=== PATIENT | male | born 1955 | race Asian ===

== ENCOUNTER → 2017-11-23 07:43 | Outpatient (CLI) | payer OTHER, SELFPAY | PROVIDERS: PCP Family Medicine; Visit Provider Urology | DX: R30.0 Dysuria (principal) | CPT/HCPCS: 87086 ==

== ENCOUNTER 2019-01-17 09:09 | Outpatient (REF) | payer OTHER, SELFPAY ==
[2019-01-17 13:39] LABS: Anion Gap 7.2 mmol/L (3-11); BUN 13 mg/dL (7-18); CO2 27.8 mmol/L (21.0-32.0); Calcium 8.8 mg/dL (8.5-10.1); Calculated LDL 100 mg/dL; Chloride 107 mmol/L (98-107); Cholesterol 156 mg/dL (50-200); Glucose 111 mg/dL (70-100); HDL Cholesterol 44 mg/dL (40-60); Hemoglobin A1C 5.8 % (4.5-6.2); Potassium 4.7 mmol/L (3.5-5.1); Sodium 142 mmol/L (136-145); Triglyceride 61 mg/dL (30-150)
== END 2019-01-17 09:29 ==
LOC: NCHCN 09:09
PROVIDERS: PCP Family Medicine; Visit Provider Family Medicine
DX: I10 Essential (primary) hypertension (principal); R73.03 Prediabetes
CPT/HCPCS: 80048; 80061; 83036

== ENCOUNTER 2019-08-19 09:00 | Outpatient (REF) | payer OTHER, SELFPAY ==
[2019-08-19 15:45] LABS: BUN 21 mg/dL (7-18); CREATININE 0.93 mg/dL (0.70-1.30); Calcium 8.7 mg/dL (8.5-10.1); Chloride 106 mmol/L (98-107); Glucose 105 mg/dL (74-106); Potassium 3.9 mmol/L (3.5-5.1); Sodium 140 mmol/L (136-145)
[2019-08-19 15:58] LABS: Hemoglobin A1C 5.7 % (3.8-5.6)
[2019-08-20 09:52] LABS: PSA, Diagnostic <0.1 ng/mL (0.0-4.5)
== END 2019-08-19 09:20 ==
LOC: NCHCN 09:00
PROVIDERS: PCP Family Medicine; Visit Provider Family Medicine
DX: I10 Essential (primary) hypertension (principal); R73.03 Prediabetes; Z85.46 Personal history of malignant neoplasm of prostate
CPT/HCPCS: 80048; 83036; 84153

== ENCOUNTER 2019-10-16 00:08 | Outpatient (CLI) | payer OTHER, SELFPAY ==
--- NOTE | 2019-10-16 08:00 | ETT_ITS ---
APPROVED REPORT Exam: Exercise Treadmill Patient Location: Out-Patient Room/Bed: Stress Nurse: Tami Delgado RN BMI: 29.53 Baseline Rhythm: Sinus Rhythm, Sinus Bradycardia Indications: Dyspnea on exertion. Medical History Medical History: HTN Cardiac Medications: Lisinopril. Chlorthalidone., Allergies: No known drug allergies Cardiac Risk Factors: HTN. Former smoker. Exercise History: Physically active Lung Sounds: Clear to auscultation Heart Sounds: Regular Stress Test Details Test: Exercise stress testing was performed using a Nathaniel protocol. Rest Stress HR Resting HR Supine: 59 bpm Max Heart Rate (APMHR): 155 bpm Target HR (85% APMHR): 131 bpm Max HR Achieved: 118 bpm % of APMHR: 76 Recovery HR: 77 bpm HR response to stress: Normal HR response to stress BP Resting BP Supine: 128/86 mmHg Max BP: 160/68 mmHg Recovery BP: 132/74 mmHg BP response to stress: Normal blood pressure response to stress. ECG Resting ECG: Sinus Bradycardia Ectopy: none Stress ECG: Sinus Tachycardia ST Change: No significant ST segment changes Arrhythmia: APC's Recovery ECG: Sinus Rhythm Recovery ST Change: No significant ST segment changes. Recovery Arrhythmia: VPC Clinical Reason for Termination: Fatigue Stress Symptoms: General Fatigue Exercise duration: 10 min30 sec Highest Stage Reached: Stage 4: 4.2 mph at 16% grade. Exercise capacity: 12.61 METs Functional Capacity: Above average capacity Angina Score: Non-Limiting Stress ECG Conclusion 1. The patient exercised for 10 minutes and 30 seconds (13 METS). 2. Exercise was stopped due to fatigue. The patient no symptom suggestive of ischemia. 3. There is no evidence of ischemia on the ECG portion of the exam. 4. The Guy Score ( 11) estimates an annual cardiovascular mortality of 0% and a five year survival o f 96%. Using the Guy Score there is a low probability of any angiographic coronary disease. Stress Test Summary STAGE Time (mins) Speed (mph) Grade (%) HR BP SYMPTOMS METS Supine 59 128/86 1 3 1.7 10 90 130/80 4.6 2 6 2.5 12 102 142/74 7 3 9 3.4 14 119 156/70 10.2 1 min recovery 118 160/68 3 min recovery 86 162/70 6 min recovery 77 132/74
== END 2019-10-16 00:28 ==
PROVIDERS: PCP Family Medicine; Visit Provider Family Medicine
DX: R06.09 Other forms of dyspnea (principal); I10 Essential (primary) hypertension
CPT/HCPCS: 93017

== ENCOUNTER 2020-02-26 03:16 | Outpatient (CLI) | payer OTHER, SELFPAY ==
[2020-02-27 11:39] LABS: PSA, Ultrasensitive 0.04 ng/mL (<= 4.5)
== END 2020-02-26 03:36 ==
PROVIDERS: PCP Family Medicine; Visit Provider Urology
DX: C61 Malignant neoplasm of prostate (principal)
CPT/HCPCS: 36415; 84153

== ENCOUNTER 2020-03-24 15:45 | Outpatient (REF) | payer OTHER, SELFPAY ==
[2020-03-24 20:11] LABS: Anion Gap 8.5 mmol/L (3-11); BUN 26 mg/dL (7-18); CO2 27.5 mmol/L (21.0-32.0); Calcium 9.3 mg/dL (8.5-10.1); Chloride 101 mmol/L (98-107); Glucose 113 mg/dL (74-106); Sodium 137 mmol/L (136-145)
== END 2020-03-24 16:05 ==
LOC: NCHCN 15:45
PROVIDERS: PCP Family Medicine; Visit Provider Family Medicine
DX: I10 Essential (primary) hypertension (principal)
CPT/HCPCS: 80048

== ENCOUNTER 2020-07-21 11:12 | Outpatient (CLI) | payer OTHER, MEDICARE, SELFPAY ==
[2020-07-22 14:49] LABS: PSA, Ultrasensitive 0.06 ng/mL (<= 4.5)
== END 2020-07-21 11:13 | disposition home or self-care (01) ==
PROVIDERS: PCP Family Medicine; Visit Provider Radiology Radiation Oncology
DX: C61 Malignant neoplasm of prostate (principal)
CPT/HCPCS: 36415; 84153

== ENCOUNTER 2020-08-27 02:28 | Outpatient (CLI) | payer OTHER, MEDICARE, SELFPAY ==
[2020-08-30 10:34] LABS: PSA, Ultrasensitive 0.06 ng/mL (<= 4.5)
== END 2020-08-27 02:29 | disposition home or self-care (01) ==
LOC: LBO 02:28
PROVIDERS: Radiology Radiation Oncology; PCP Family Medicine; Visit Provider Nurse Practitioner
DX: C61 Malignant neoplasm of prostate (principal)
CPT/HCPCS: 36415; 84153

== ENCOUNTER 2020-10-14 03:31 | Outpatient (CLI) | payer OTHER, MEDICARE, SELFPAY ==
[2020-10-15 13:06] LABS: PSA, Ultrasensitive 0.06 ng/mL (<= 4.5)
== END 2020-10-14 03:32 | disposition home or self-care (01) ==
LOC: LBO 03:31
PROVIDERS: PCP Family Medicine; Visit Provider Radiology Radiation Oncology
DX: C61 Malignant neoplasm of prostate (principal)
CPT/HCPCS: 36415; 84153

== ENCOUNTER 2020-12-07 01:45 | Outpatient (CLI) | payer OTHER, MEDICARE, SELFPAY ==
[2020-12-09 11:06] LABS: PSA, Ultrasensitive 0.06 ng/mL (<= 4.5)
== END 2020-12-07 01:46 | disposition home or self-care (01) ==
LOC: LBO 01:47
PROVIDERS: PCP Family Medicine; Visit Provider Radiology Radiation Oncology
DX: C61 Malignant neoplasm of prostate (principal)
CPT/HCPCS: 36415; 84153

== ENCOUNTER 2021-03-02 02:16 | Outpatient (CLI) | payer OTHER, SELFPAY ==
[2021-03-03 13:03] LABS: PSA, Ultrasensitive 0.07 ng/mL (<= 4.5)
== END 2021-03-02 02:17 | disposition home or self-care (01) ==
PROVIDERS: PCP Family Medicine; Visit Provider Radiology Radiation Oncology
DX: C61 Malignant neoplasm of prostate (principal)
CPT/HCPCS: 36415; 84153

== ENCOUNTER 2021-03-02 07:22 | Outpatient (REF) | payer OTHER, SELFPAY ==
[2021-03-02 14:15] LABS: HCT 43.1 % (40.0-50.0); HGB 14.6 g/dL (13.5-17.5); MCH 32.4 pg (27.0-33.0); MCHC 33.9 % (32.0-36.0); MCV 95.6 fL (80-95); MPV 8.8 fL (8.0-11.0); Platelet Count 231 10^3/uL (130-400); RBC 4.51 10^6/uL (4.36-5.78); RDW 12.1 % (11.8-14.1); RDW-SD 42.3 fL; WBC 4.12 10^3/uL (4.4-10.8)
[2021-03-02 14:28] LABS: ALT 39 U/L (16-63); AST 27 U/L (15-37); Albumin 4.1 g/dL (3.4-5.0); Alkaline Phosphatase 55 U/L (46-116); Anion Gap 8.3 mmol/L (3-11); BUN 22 mg/dL (7-18); Bilirubin, Total 0.6 mg/dL (0.2-1.0); CO2 28.7 mmol/L (21.0-32.0); CREATININE 1.1 mg/dL (0.70-1.30); Calcium 8.9 mg/dL (8.5-10.1); Chloride 104 mmol/L (98-107); Glucose 112 mg/dL (74-106); Potassium 4.2 mmol/L (3.5-5.1); Sodium 141 mmol/L (136-145); Total Protein 7.6 g/dL (6.4-8.2)
[2021-03-03 21:47] LABS: Hemoglobin A1C 5.9 % (<5.7)
== END 2021-03-02 07:23 | disposition home or self-care (01) ==
LOC: NCHCN 07:22
PROVIDERS: PCP Family Medicine; Visit Provider Family Medicine
DX: I10 Essential (primary) hypertension (principal); R73.03 Prediabetes
CPT/HCPCS: 80053; 85027; 83036

== ENCOUNTER 2021-03-28 17:35 | Outpatient (REF) | payer OTHER, SELFPAY ==
[2021-03-28 19:02] LABS: Calculated LDL 117 mg/dL (<100); Cholesterol 178 mg/dL (<200); HDL Cholesterol 41 mg/dL (40-60); Triglyceride 104 mg/dL (<150)
[2021-03-30 11:48] LABS: Hepatitis C Ab w Rflx HCV PCR Negative (Negative)
== END 2021-03-28 17:36 | disposition home or self-care (01) ==
LOC: NCHCN 17:35
PROVIDERS: PCP Family Medicine; Visit Provider Family Medicine
DX: E78.5 Hyperlipidemia, unspecified (principal); Z11.59 Encounter for screening for other viral diseases
CPT/HCPCS: 80061; 86803

== ENCOUNTER 2021-04-28 02:55 | Outpatient (CLI) | payer OTHER, SELFPAY ==
[2021-05-02 13:16] LABS: PSA, Ultrasensitive 0.08 ng/mL (<= 4.5)
== END 2021-04-28 02:56 | disposition home or self-care (01) ==
LOC: LBO 02:56
PROVIDERS: PCP Family Medicine; Visit Provider Radiology Radiation Oncology
DX: C61 Malignant neoplasm of prostate (principal)
CPT/HCPCS: 36415; 84153

== ENCOUNTER 2021-07-21 02:00 | Outpatient (CLI) | payer OTHER, SELFPAY ==
--- NOTE | 2021-07-21 13:00 | DI.DEXA_ITS ---
Exam(s) XR DEXA BONE DENSITY W/WO CHAZ EXAM: XR DEXA BONE DENSITY W/WO CHAZ CLINICAL HISTORY: PROSTATE CA, C61, ON ADT, RISK OF OSTEOPOROSIS AND FX, ? OSTEOPENIA TECHNIQUE: COMPARISON: No exams were available for comparison FINDINGS: DEXA scan was performed according to usual protocol. Please see the accompanying data sheets. Findi ngs for left hip scanning are T-score 0.6 with left femoral neck T-score -0.3. Lumbar spine scanning shows T-score 1.2. Left forearm scanning shows T-score 0.2. IMPRESSION: The findings are consistent with normal bone density according to the WHO criteria. Lateral vertebr al scanogram shows no evidence of a vertebral compression fracture. RADIATION DOSE DELIVERED: Total DLP
== END 2021-07-21 02:20 ==
PROVIDERS: PCP Family Medicine; Visit Provider Radiology Radiation Oncology
DX: C61 Malignant neoplasm of prostate (principal); Z79.899 Other long term (current) drug therapy; Z13.820 Encounter for screening for osteoporosis
CPT/HCPCS: 77080

== ENCOUNTER 2021-09-29 04:12 | Outpatient (CLI) | payer OTHER, SELFPAY ==
[2021-09-30 15:15] LABS: PSA, Ultrasensitive <0.01 ng/mL (<= 4.5)
== END 2021-09-29 04:13 | disposition home or self-care (01) ==
LOC: LBO 04:12
PROVIDERS: PCP Family Medicine; Visit Provider Radiology Radiation Oncology
DX: C61 Malignant neoplasm of prostate (principal)
CPT/HCPCS: 36415; 84153; 84403

== ENCOUNTER 2021-12-30 01:27 | Outpatient (CLI) | payer OTHER, SELFPAY ==
--- OUTSIDE RECORDS SUMMARY | 2021-12-30 01:31 | XMS_ITS | Encounter Summary ---
:1955 Author Organization [facility] [place] [address] Care Team Providers Name Role Phone Clara Wood MD Primary Care Provider Encounter Details Date Type Department Care Team Description 07/07/2020 Telephone Urology at [facility] Nabil Camargo MD [facility] ([facility]) [place] [address] UROLOGY [phone] [place] [address] (Wo rk) Social History Tobacco Use Types Packs/Day Years Used Date Former Smoker Cigarettes 1.5 20 Quit: 1981 Smokeless Tobacco: Never Used Alcohol Use Standard Drinks/Week Comments Yes 0 (1 standard drink = 0.6 oz pure alcoho l) rarely Alcohol Habits Answer Date Recorded How often do you have a drink containing alcohol? Not asked How many drinks containing alcohol do you have on a typical Not asked day when you are drinking? How often do you have six or more drinks on one occasion? No t asked Comment: rarely 10/18/2017 Sex Assigned at Date Recorded Not on file documented as of this encounter Miscellaneous Notes Telephone Encounter - Nabil Camargo MD - 07/07/2020 11:12 AM EDT I called Amanuel back to discuss some questions he had regarding his possible salvage radiation treatment specifically if and when to pull the trigger based on his PSA trends. I explained that he is eriberto tough situation as is often times very difficult to distinguish between benign PSA rise following surgery and recurrent disease given the low PSA values were looking at. I explained that it would be completely reasonable to continue trending the PSA as the value is still quite low and there is good evidence that as long as radiation is administered in a relatively timely fashion the long-term cancer specific outcomes are essentially equivalent versus early and delayed salvage radiation but that would also be completely reasonable to proceed with salvage treatment considering the PSA rise. I explained that the decision is quite difficult as there is no other test we have that is availableto distinguish between recurrent disease and a benign PSA rise in the situation. I believe he is leaning towards salvage radiation which I think is reasonable but he would like to check another PSA prior to his treatment. I will let Dr. Pringle know to see if they can have this done when he sees him towards the end of the month. documented in this encounter Plan of Treatment Upcoming Encounters Date Type Specialty Care Team Description 01/19/2022 Office Visit Radiation Oncology Clover Covarrubias APRN [facility] RADIATION ONCOLO [place], [place] [address] (Wo rk) 12/04/2022 Hospital Encounter Gastroenterology Real Jones MD [facility] GASTROENTEROLOGY DEPT. [place], [place] [address] (Wo rk) Scheduled Procedures Name Priority Associated Diagnoses Date/Time COLONOSCOPY, DIAGNOSTIC 10 yr f/up documented as of this encounter Visit Diagnoses Not on filedocumented in this encounter Care Teams Square Dance Caller Relationship Specialty Start Date End Date Clara Wood MD PCP - General Family Medicine 01/26/17 Ebony [address]EN [address] [place] [address] documented as of this encounter
--- OUTSIDE RECORDS SUMMARY | 2021-12-30 01:31 | XMS_ITS | Encounter Summary ---
:1955 Author Organization [facility] [place] [address] Care Team Providers Name Role Phone Clara Wood MD Primary Care Provider Encounter Details Date Type Department Care Team Description 07/21/2020 Office Visit Radiation Oncology at [facility] Michel MD Prostate cancer [address] [place] [id number] [phone] (Wo rk) Social History Tobacco Use Types [...] on file documented as of this encounter Last Filed Vital Signs Vital Sign Reading Time Taken Comments Blood Pressure 118/83 07/21/2020 10:00 AM EDT Pulse 60 07/21/2020 10:00 AM EDT Temperature 36.7 ??C (98 ??F) 07/21/2020 10:00 AM EDT Respiratory Rate 16 07/21/2020 10:00 AM EDT Oxygen Saturation 99% 07/21/2020 10:00 AM EDT Inhaled Oxygen Concentration - - Weight 92.4 kg (203 lb 9.6 oz) 07/21/2020 10:00 AM EDT Height - - Body Mass Index 30.07 04/23/2018 7:39 AM EST documented in this encounter Progress Notes Michel Yip MD - 07/21/2020 11:00 AM EDT I met with Victoriano and his Nata today in clinic to review options regarding salvage therapy and timing. He has an excellent understanding of the medical decision making at this time. We reviewed reasons for RT - primarily the positive surgical margins and detectable PSA. We also reviewed reasons which make surveillance in the near term reasonable - namely the overall low PSA (0.05 in 05/2020) and presence of only Sarah 3 disease at a small, focal margin. At this time, he would prefer to recheck PSA prior to starting RT. This is very reasonable to me, and we will arrange for PSA to be drawn locally, later today. I will call him with results and finalize a plan moving forward. I anticipate at least 1-2 additional PSA checks at q6w intervals to assess PSA trajectory before finalizing any treatment decisions. Time Attestation: I certify spending at least 30 minutes in providing care to this patient today, 07/21/20 as reflected by the following activities: - review of his medical record in the chart, including interpretation of imaging, laboratory and pathologic studies referenced above - discussion of the above with the patient as part of shared medical decision making - documenting the outcome of today's visit as above documented in this encounter Plan of Treatment Upcoming Encounters Date Type Specialty Care Team Description 01/19/2022 Office Visit Radiation Oncology Clover Covarrubias APRN [facility] RADIATION ONCOLO [place], [place] [address] (Kalpesh richter) 12/04/2022 Hospital Encounter Gastroenterology Real Jones MD [facility] GASTROENTEROLOGY DEPT. [place], [place] [address] (Wo rk) Scheduled Procedures Name Priority Associated Diagnoses Date/Time COLONOSCOPY, DIAGNOSTIC 10 yr f/up documented as of this encounter Visit Diagnoses Diagnosis Prostate cancer Malignant neoplasm of prostate documented in this encounter Care Teams Print Shop Manager Relationship Specialty Start Date End Date Clara Wood MD PCP - General Family Medicine 01/26/17 Ebony [address]EN [address] [place] [address] documented as of this encounter
--- OUTSIDE RECORDS SUMMARY | 2021-12-30 01:31 | XMS_ITS | Encounter Summary ---
:1955 Author Organization [facility] [place] [address] Care Team Providers Name Role Phone Clara Wood MD Primary Care Provider Encounter Details Date Type Department Care Team Description 07/21/2021 Office Visit Radiation Oncology at [facility] Michel MD Prostate cancer [address] [place] [id number] (Wo rk) Social History Tobacco Use Types [...] Sign Reading Time Taken Comments Blood Pressure 125/79 07/21/2021 8:00 AM EDT Pulse 74 07/21/2021 8:00 AM EDT Temperature 36.7 ??C (98.1 ??F) 07/21/2021 8:00 AM EDT Respiratory Rate 16 07/21/2021 8:00 AM EDT Oxygen Saturation 98% 07/21/2021 8:00 AM EDT Inhaled Oxygen Concentration - - Weight 90.4 kg (199 lb 6.4 oz) 07/21/2021 8:00 AM EDT Height - - Body Mass Index 29.45 04/23/2018 7:39 AM EST documented in this encounter Progress Notes Michel Yip MD - 07/21/2021 8:10 AM EDT Images from the original note were not included. RADIATION ONCOLOGY - Weekly On Treatment Visit Note 07/21/21 MICHEL YIP MD Radiation Oncology [facility] [phone] (paging surfacer operator) Pager #[phone] PATIENT IDENTIFICATION Name Amanuel Lomax Date of 1955 PCP Clara Wood MD Referring MD (if different) Dr. 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 Had COVID and shingles booster this week, sopretty tired. GI Diarrhea well controlled w Imodium. Nocturia stable at 2x/nt. Uses 1 pad daily. Occ stress UI. No dysuria. Baseline IPSS history is listed below. Pain: Pain score today is 0/10. Prostate Today's Scores 12/10/2018 07/02/2020 08/26/2020 10/21/2020 05/04/2021 Sexual Health Inventory for Men 3 (Severe ED) 1 (Severe ED) 7 (Severe ED) 1 (Severe ED) 2 (Severe ED) International Prostate Symptom Score 2 ( Mild LUTS) 2 ( Mild LUTS) 2 ( Mild LUTS) 2 ( Mild LUTS) 2 (Mild LUTS) MEDICATIONS Medications 07/21/21 0832 Medication Sig Taking? loperamide (Imodium A-D) 2 mg Capsule Take 2 mg by mouth 4 times daily as needed for Diarrhea. Yes calcium-vitamin D3 600 mg-10 mcg (400 unit) Capsule Take 1 tablet by mouth 2 times daily. Yes lactobacillus rhamnosus, GG, (CULTURELLE) 10 billion cell Capsule Take 1 capsule by mouth daily. Yes chlorthalidone (Hygroten) 25 mg Tablet 25 mg daily. Yes lisinopriL (Prinivil;Zestril) 40 mg Tablet Take 40 mg by mouth daily. Yes acetaminophen (TYLENOL) 325 mg Tablet Take 650 mg by mouth every 4 hours as needed for Pain. Yes IMAGING / LABS I have personally reviewed this patient's interval portal imaging to confirm accurate positioning and alignment which matches the patient's original approved treatment planning images. 07/08/21 PSA 0.01 (<-- 0.08 in Apr 2021) EXAM: BP 125/79 Pulse 74 Temp 36.7 ??C (98.1 ??F) Resp 16 Wt 90.4 kg (199 lb 6.4 oz) SpO2 98% BMI 29.45 kg/m?? Constitutional: he appears well-developed and well-nourished. No distress. Performance Status: KPS Score ECOG Grade Definition XX 90-100 0 Fully active, able to carry on all pre-disease performance without restriction 70-80 1 Restricted in physically strenuous activity but ambulatory and able to carry out work of a light or sedentary nature, e.g., light house work, office work 50-60 2 Ambulatory and capable of all selfcare but unable to carry out any work activities; up and about more than 50% of waking hours 30-40 3 Capable of only limited selfcare; confined to bed or chair more than 50% of waking hours 10-20 4 Completely disabled; cannot carry on any selfcare; totally confined to bed or chair IMPRESSION/PLAN Tolerance to radiotherapy/ADT: Tolerating as anticipated. Continue as planned. Next Lupron 08/05 Followup: Return to clinic next week for on treatment check. documented in this encounter Plan of Treatment Upcoming Encounters Date Type Specialty Care Team Description 01/19/2022 Office Visit Radiation Oncology Clover Covarrubias APRN [facility] RADIATION ONCOLO [place], [place] [address] (Wo rk) 12/04/2022 Hospital Encounter Gastroenterology Real Jones MD [facility] GASTROENTEROLOGY DEPT. [place], [place] [address] (Wo rk) Scheduled Procedures Name Priority Associated Diagnoses Date/Time COLONOSCOPY, DIAGNOSTIC 10 yr f/up documented as of this encounter Visit Diagnoses Diagnosis Prostate cancer Malignant neoplasm of prostate documented in this encounter Care Teams Screen Printing Equipment Setter Relationship Specialty Start Date End Date Clara oWod MD PCP - General Family Medicine 01/26/17 [address] [place] [address] documented as of this encounter
--- OUTSIDE RECORDS SUMMARY | 2021-12-30 01:31 | XMS_ITS | Encounter Summary ---
:1955 Author Organization [facility] [place] [address] Care Team Providers Name Role Phone Clara Wood MD Primary Care Provider Encounter Details Date Type Department Care Team Description 10/06/2021 Office Visit Radiation Oncology at [facility] Michel MD Prostate cancer [address] [place] [phone] (Wo rk) Social History Tobacco Use Types [...] Sign Reading Time Taken Comments Blood Pressure 124/78 10/06/2021 2:00 PM EDT Pulse 64 10/06/2021 2:00 PM EDT Temperature 36.6 ??C (97.9 ??F) 10/06/2021 2:00 PM EDT Respiratory Rate 16 10/06/2021 2:00 PM EDT Oxygen Saturation 98% 10/06/2021 2:00 PM EDT Inhaled Oxygen Concentration - - Weight 90 kg (198 lb 6.4 oz) 10/06/2021 2:00 PM EDT Height - - Body Mass Index 29.3 04/23/2018 7:39 AM EST documented in this encounter Progress Notes Michel Yip MD - 10/06/2021 2:00 PM EDT Images from the original note were not included. RADIATION ONCOLOGY - End of Treatment Visit Note 10/06/21 MICHEL YIP MD Radiation Oncology [facility] [phone] (paging regrind mill operator) Pager #[phone] PATIENT IDENTIFICATION Name Amanuel Lomax Date of 1955 PCP Clara Wood MD Referring MD (if different) Dr. Camargo Diagnosis High-Risk Prostate Cancer s/p RALP 11/2017 (pT3a, Gl 3+4, preop PSA 12, +focal SM Gl 3) Rising PSA postop most recently 0.08 (04/2021) NEOADJUVANT / CONCURRENT THERAPY: ST-ADT (planned 6 months) ONCBCN ONCOLOGY (AMB) 06/08/2021 07/14/2021 08/12/2021 09/08/2021 leuprolide (Lupron Depot) IM 7.5 mg 7.5 mg 7.5 mg 7.5 mg INTENT OF THERAPY: Definitive (Curative) RADIATION TREATMENT DETAILS: Initial Treatment Site Pelvis and Prostate Bed Prescribed Dose 45 Gy in 25 fractions Boost Treatment Site 2 Prostate Bed Prescribed Dose 70.2 Gy in 39 fractions Completion Date 08/19/21 INTERVAL HISTORY General 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 Overall no changes. Mild HF. GI Diarrhea resolved. Eating full diet. Nocturia stable at 2x/nt. Uses 1 pad daily. Occ stress UI. No dysuria. IPSS history below. Pain: Pain score today is 0/10. Prostate Today's Scores 07/02/2020 08/26/2020 10/21/2020 05/04/2021 10/06/2021 Sexual Health Inventory for Men 1 (Severe ED) 7 (Severe ED) 1 (Severe ED) 2 (Severe ED) - International Prostate Symptom Score 2 ( Mild LUTS) 2 ( Mild LUTS) 2 ( Mild LUTS) 2 ( Mild LUTS) 2 (Mild LUTS) MEDICATIONS Medications 08/18/21 0808 Medication Sig Taking? loperamide (Imodium A-D) 2 mg Capsule Take 2 mg by mouth 4 times daily as needed for Diarrhea. calcium-vitamin D3 600 mg-10 mcg (400 unit) Capsule Take 1 tablet by mouth 2 times daily. lactobacillus rhamnosus, GG, (CULTURELLE) 10 billion cell Capsule Take 1 capsule by mouth daily. chlorthalidone (Hygroten) 25 mg Tablet 25 mg daily. lisinopriL (Prinivil;Zestril) 40 mg Tablet Take 40 mg by mouth daily. acetaminophen (TYLENOL) 325 mg Tablet Take 650 mg by mouth every 4 hours as needed for Pain. IMAGING / LABS PSA 05/2020 ?- 0.05 ng/dl 06/2020 ?- 0.06 08/27/2020 ?- 0.06 10/14/2020 ??- 0.06 03/02/2021 - ??0.07 04/28/2021 - 0.08 07/08/21 - 0.01 08/19/21 - <<<COMPLETE RT>> 09/29/21 - <0.01 Testosterone 09/29/21 8.0 ng/dl (LLN 240) EXAM: BP 124/78 Pulse 64 Temp 36.6 ??C (97.9 ??F) Resp 16 Wt 90 kg (198 lb 6.4 oz) SpO2 98% BMI 29.30 kg/m?? Constitutional: he appears well-developed and well-nourished. [...] totally confined to bed or chair IMPRESSION/PLAN Response to radiotherapy/ADT: Complete biochemical response, testosterone at castrate level Lupron due today Followup: Return to clinic 4 weeks for final Lupron RV 3 months after that with PSA / T prior documented in this encounter Plan of Treatment Upcoming Encounters Date Type Specialty Care Team Description 01/19/2022 Office Visit Radiation Oncology Clover Covarrubias APRN [facility] RADIATION [place], [place] [address] (Wo rk) 12/04/2022 Hospital Encounter Gastroenterology Real Jones MD [facility] GASTROENTEROLOGY DEPT. [place], [place] [address] (Wo rk) Scheduled Orders Name Type Priority Associated Diagnoses Order S chedule PSA (Ultrasensitive) Lab Routine Prostate cancer Expe cted: 01/06/2022 (Approximate), Expires: 07/08/2022 Testosterone, total Lab Routine Prostate cancer Expec dwight: 01/06/2022 (Approximate), Expires: 07/08/2022 Scheduled Procedures Name Priority Associated Diagnoses Date/Time COLONOSCOPY, DIAGNOSTIC 10 yr f/up documented as of this encounter Visit Diagnoses Diagnosis Prostate cancer Malignant neoplasm of prostate documented in this encounter Care Teams C Engineer Relationship Specialty Start Date End Date Clara Wood MD PCP - General Family Medicine 01/26/17 [address]ony [address] [place] [address] documented as of this encounter
--- OUTSIDE RECORDS SUMMARY | 2021-12-30 01:31 | XMS_ITS | Clinical Summary ---
:1955 Author Organization [facility] Address [address] [place] [address] Care Team Providers Name Role Phone Clara Wood MD Primary Care Provider Social History Tobacco Use Types Packs/Day Years Used Date Never Assessed Sex Assigned at Date Recorded Not on file Plan of Treatment Health Maintenance Due Date Last Done Comments COVID-19 Vaccine (1) 1960 Fall Risk Screening 2019 Hepatitis C Screen Completed 03/28/2021 Care Teams Learning And Development Director Relationship Specialty Start Date End Date Clara Wood MD PCP - General 09/01/[address] [place] [id number]
--- OUTSIDE RECORDS SUMMARY | 2021-12-30 01:31 | XMS_ITS | Encounter Summary ---
:1955 Author Organization [facility] [place] [address] Care Team Providers Name Role Phone Clara Wood MD Primary Care Provider Encounter Details Date Type Department Care Team Description 08/11/2021 Office Visit Radiation Oncology at [facility] Michel MD Prostate cancer [address] [place] [phone] (Wo rk) Social History Tobacco Use Types [...] Sign Reading Time Taken Comments Blood Pressure 112/77 08/11/2021 8:00 AM EDT Pulse 60 08/11/2021 8:00 AM EDT Temperature 36.5 ??C (97.7 ??F) 08/11/2021 8:00 AM EDT Respiratory Rate 16 08/11/2021 8:00 AM EDT Oxygen Saturation 98% 08/11/2021 8:00 AM EDT Inhaled Oxygen Concentration - - Weight 88.8 kg (195 lb 12.8 oz) 08/11/2021 8:00 AM EDT Height - - Body Mass Index 28.91 04/23/2018 7:39 AM EST documented in this encounter Progress Notes Michel Yip MD - 08/11/2021 8:10 AM EDT Images from the original note were not included. 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 GI Diarrhea well controlled w diet - not needing Imodium this week. Nocturia stable at 2x/nt. Uses 1 pad [...] Mild LUTS) 2 (Mild LUTS) MEDICATIONS Medications 08/11/21 0823 Medication Sig Taking? calcium-vitamin D3 600 mg-10 mcg (400 unit) Capsule Take 1 tablet by mouth 2 times daily. Yes lactobacillus rhamnosus, GG, (CULTURELLE) 10 billion cell Capsule Take 1 capsule by mouth daily. Yes chlorthalidone (Hygroten) 25 mg Tablet 25 mg daily. Yes lisinopriL (Prinivil;Zestril) 40 mg Tablet Take 40 mg by mouth daily. Yes loperamide (Imodium A-D) 2 mg Capsule Take 2 mg by mouth 4 times daily as needed for Diarrhea. acetaminophen (TYLENOL) 325 mg Tablet Take 650 mg by mouth every 4 hours as needed for Pain. IMAGING / LABS I have personally reviewed this patient's interval portal imaging to confirm accurate positioning and alignment which matches the patient's original approved treatment planning images. 07/08/21 PSA 0.01 (<-- 0.08 in Apr 2021) EXAM: BP 112/77 Pulse 60 Temp 36.5 ??C (97.7 ??F) Resp 16 Wt 88.8 kg (195 lb 12.8 oz) SpO2 98% BMI 28.91 kg/m?? Constitutional: he appears well-developed and well-nourished. [...] as anticipated. Continue as planned. Next Lupron 08/12 Followup: Return to clinic next week for on treatment check. documented in this encounter Plan of Treatment Upcoming Encounters Date Type Specialty Care Team Description 01/19/2022 Office Visit Radiation Oncology Clover Covarrubias APRN [facility] RADIATION ONCOLO [place], [place] [address] (Wo rk) 12/04/2022 Hospital Encounter Gastroenterology Real Jones MD [facility] GASTROENTEROLOGY DEPT. [place], [place] [address] (Wo rk) Scheduled Procedures Name Priority Associated Diagnoses Date/Time COLONOSCOPY, DIAGNOSTIC 10 yr f/up documented as of this encounter Visit Diagnoses Diagnosis Prostate cancer Malignant neoplasm of prostate documented in this encounter Care Teams Specialty Sales Representative Relationship Specialty Start Date End Date Clara Wood MD PCP - General Family Medicine 01/26/17 Ebony [address] [place] [address] documented as of this encounter
--- OUTSIDE RECORDS SUMMARY | 2021-12-30 01:31 | XMS_ITS | Encounter Summary ---
:1955 Author Organization [facility] [place] [address] Care Team Providers Name Role Phone Clara Wood MD Primary Care Provider Encounter Details Date Type Department Care Team Description 07/23/2020 TH Visit Radiation On[facility] at [facility] [address] [place] [address] RADIATION ONCOL OGY [address] [place], [place] [phone] (Wo rk) Social History Tobacco Use Types [...] on file documented as of this encounter Progress Notes Michel Yip MD - 07/23/2020 1:00 PM EDT Radiation Oncology Telephone Note I called Victoriano on his cell phone today to review PSA results, which is essentially stable at 0.06 ng/dl. We confirmed a plan to check again in 6 weeks. If PSA is stable will continue observation. If is seems to be rising and approaching the 0.10 level, will move towards salvage RT. He did not have any further questions and anticipates a scheduling call in the coming weeks. Time Attestation: I provided care to Victoriano, who verbally consented to this telephone visit and understands that this visit may be billed, similar to a clinic office visit. I spent at least 10 minutes in providing care to this patient today, 07/23/20 as reflected by the following activities: - review of his medical record in the chart, including interpretation of laboratory studies referenced above - discussion of the above with the patient as part of shared medical decision making - documenting the outcome of today's visit as above documented in this encounter Plan of Treatment Upcoming Encounters Date Type Specialty Care Team Description 01/19/2022 Office Visit Radiation Oncology Clover Covarrubias APRN [facility] RADIATION ONCOLO [place], [place] [address] (Wo rk) 12/04/2022 Hospital Encounter Gastroenterology Real Jones MD [facility] GASTROENTEROLOGY DEPT. [place], [place] [address] (Wo rk) Scheduled Procedures Name Priority Associated Diagnoses Date/Time COLONOSCOPY, DIAGNOSTIC 10 yr f/up documented as of this encounter Visit Diagnoses Diagnosis Prostate cancer Malignant neoplasm of prostate documented in this encounter Care Teams Sand Screener Relationship Specialty Start Date End Date Clara Wood MD PCP - General Family Medicine 01/26/17 [address] [place] [address] documented as of this encounter
--- OUTSIDE RECORDS SUMMARY | 2021-12-30 01:31 | XMS_ITS | Encounter Summary ---
:1955 Author Organization [facility] Address [address] [place] [address] Care Team Providers Name Role Phone Lisa Tse NP Primary Care Provider Encounter Details Date Type Department Care Team Description 06/28/2006 Results Only [facility] - Sunil Kapadia, DO conversion [address] [address] [place], [place] [id number] [phone] Social History Tobacco Use Types Packs/Day Years Used Date Never Assessed Sex Assigned at Date Recorded Not on file documented as of this encounter Plan of Treatment Not on filedocumented as of this encounter Procedures Procedure Name Priority Date/Time Associated Diagnosis Comme [facility] SURGICAL PATHOLOGY Routine 06/28/2006 0:00 EDT Re sults for this procedure are i n the results section. documented in this encounter Results SURGICAL PATHOLOGY (06/28/2006 0:00 EDT) Pathology Report: SURGICAL PATHOLOGY REPORT NED GOODEN Reports generated via electronic interface contain ruiz ginal data; LAB however they are lacking the format of the original re port. Caution should be taken when reading/interpreting unfo rmatted reports. Name: ? EVERT HUSSEIN ? Accession #: ? [id number] ? : ? 1955 (Age: 51) ??M ? Collect Date: ? 06/28/2006 ? Location: ? [facility] ? Receive Date: ? 07/01/19 07 ? Provider: SUNIL DEE DO Copy to: LISA TSE ASSESSMENT COUNSELOR ? Final Pathologic Diagnosis: ? Gastric antrum, biopsy: 1. ??Gastric mucosa with mild, chronic inflammation. 2. ??No Helicobacter pylori-like organism identified o n H&E stained slides. Document reviewed and electronically signed by: KWESI GUTIERREZ MD Report ??Date: 07/03/2006 15:53 By the signature above, the attending physician certif ies that he/she has personally conducted a gross and/or microscopic examin ation of the described specimens and rendered or confirmed the above diagnosi s. Specimen(s) Received: ? Antrum Clinical History: ? GI bleed Gross Description: ? Received in Hollande' s fixative labelled [place] and antrum are two irregular soft tissues, each measuring 0.2 x 0.2 x 0.2 cm. ??The specimen is submitted intact in one cassette. ??(Dr. Luz-MS)/k mm End of Report Specimen Performing Organization Address City/State/ZIP Code Phon e Number [facility] [address] [place] [address] SERVICES [facility] [address] [place] [address] documented in this encounter Visit Diagnoses Not on filedocumented in this encounter Care Teams Business Development Analyst Relationship Specialty Start Date End Date Lisa Tse NP PCP - General 12/10/09 08/31/15 [address] [place] [phone] documented as of this encounter
--- OUTSIDE RECORDS SUMMARY | 2021-12-30 01:31 | XMS_ITS | Encounter Summary ---
:1955 Author Organization [facility] Address [address] [place] [address] Care Team Providers Name Role Phone Lisa Tse NP Primary Care Provider Encounter Details Date Type Department Care Team Description 08/25/2015 Results Only [facility] Nicolas Arreola, [address] [place], [place] [address] (Wo rk) Social History Tobacco Use Types Packs/Day Years Used Date Never Assessed Sex Assigned at Date Recorded Not on file documented as of this encounter Plan of Treatment Not on filedocumented as of this encounter Procedures Procedure Name Priority Date/Time Associated Diagnosis Comme nts SURGICAL PATHOLOGY Routine 08/25/2015 10:34 Resul ts for this EDT procedure are i n the results section. documented in this encounter Results SURGICAL PATHOLOGY (08/25/2015 10:34 EDT) Pathology SURGICAL PATHOLOGY REPORT [facility] MEDICAL Report: Reports generated via electronic interface conta in original data; CENTER however they are lacking the format of the original re port. LABORATORY Caution should be taken when reading/interpretin g unformatted reports. SERVICES Name: ? EVERT HUSSEIN ? Accession #: ? [id number] ? : ? 1955 (Age: 60 ) ??M ? Collect Date: ? 08/25/2015 ? Location: ? [facility] ? Receive Date: ? 6 ? Provider: NICOLAS ARREOLA DO Copy to: CHRISTIANA ROE MD ? Final Pathologic Diagnosis: SKIN OF OCCIPUT, LEFT, SHAVE BIOPSY: - Seborrheic keratosis, irritated. ?? Microscopic Description: Sections consist of a shave biopsy of a papule. ??Ther e is compact orthohyperkeratosis and foca l parakeratosis. ??The papule is formed by epidermal acanthosis with low papillomatosis. ??Th e keratinocytes have reactive changes. Within the dermis, there are thick bundles of collagen and sparse chronic inflammation. ??In some area s, melanin pigment is accentuated at the tips of rete ridges. ??(Dr. Smith)/ljn Document reviewed and electronically signed by: ARIADNA SMITH MD Report ??Date: 08/27/2015 16:25 By the signature above, the attending physician certif ies that he/she has personally conducted a gross and/or microscopic examin ation of the described specimens and rendered or confirmed the above diagnosi s. Specimen(s) Received: Left occiput Clinical History: Non-healing skin lesion; clinical diagnosis code: ??D4 9.2 Gross Description: ? Received in formalin labelled with proper patient identification (initials H, M) and left occiput is a shave biopsy of brown hairbearing skin (0.9 x 0.7 x 0.1 cm). ??The specimen is trisected and entirely trimble bmitted in Maira Elena Kirkpatrick 08/26/2015 1:28 PM End of Report Specimen Performing Organization Address City/State/ZIP Code Phon e Number [facility] [address] [place] [id number] SERVICES documented in this encounter Visit Diagnoses Not on filedocumented in this encounter Care Teams Battery Checker Relationship Specialty Start Date End Date Lisa Tse NP PCP - General 12/10/09 08/31/15 [address] [place] [address] documented as of this encounter
--- OUTSIDE RECORDS SUMMARY | 2021-12-30 01:31 | XMS_ITS | Encounter Summary ---
:1955 Author Organization [facility] [place] [address] Care Team Providers Name Role Phone Clara Wood MD Primary Care Provider Reason for Visit Reason Comments Other Lupron 7.5 mg Treatment/Therapy Plan Authorization (Routine) - Authorized Specialty Diagnoses / Procedures Referred By Contact Refer red To Contact Hematology and Oncology Diagnoses Prostate cancer Michel Yip MD [facility] Hem Onc Infusion Procedures TC LEUPROLIDE ACETATE 7.5MG, FOR DEPOST SUSPENSION (LUPRON DEPOT) [id number] Lupron Depot [address] [place] [address] [place] [id number] Referral ID Status Reason Start Date Expiration Date Visits V isits Requested Authorized [id number] Authorized 05/05/2021 09/15/2022 99 99 Encounter Details Date Type Department Care Team Description 07/14/2021 Infusion Hematology Oncology at [facility] Prostate cancer [address] [place] [phone] Social History Tobacco Use Types Packs/Day Years [...] documented as of this encounter Progress Notes Yisel Mendez RN - 07/14/2021 8:00 AM EDT INFUSION THERAPY ADMINISTRATION NOTES TIME TREATMENT STARTED: 0800 TIME TREATMENT ENDED: 08 DIAGNOSIS: prostate cancer PROTOCOL:na CYCLE #: 2 REASON FOR VISIT: lupron one month shot SUBJECTIVE Amanuel Lomax offers no complaints. OBJECTIVE LAB DATA: Labs reviewed and found adequate for treatment. lupron 7.5 mg IM in right gluteal REACTIONS (DESCRIPTION, TIME, INTERVENTION AND EFFECTIVENESS) none ASSESSMENT Amanuel Lomax was awake, alert and he tolerated treatment well. PLAN Return to clinic per routine. documented in this encounter Plan of Treatment Upcoming Encounters Date Type Specialty Care Team Description 01/19/2022 Office Visit Radiation Oncology Clover Covarrubias APRN [facility] RADIATION ONCOLO [place], [place] [address] (Wo rk) 12/04/2022 Hospital Encounter Gastroenterology Real Jones MD [facility] GASTROENTEROLOGY DEPT. [place], [place] [address] (Wo rk) Scheduled Procedures Name Priority Associated Diagnoses Date/Time COLONOSCOPY, DIAGNOSTIC 10 yr f/up documented as of this encounter Visit Diagnoses Diagnosis Prostate cancer Malignant neoplasm of prostate documented in this encounter Administered Medications Inactive Administered Medications - up to 3 most recent administrations Medication Order MAR Action Action Date Dose Rate Site leuprolide (Lupron Depot) Given 07/14/2021 8:24 AM EDT 7.5 mg Right Gluteal injection 7.5 mg 7.5 mg, Intramuscular, ONCE, 1 dose, On Claudia 07/14/21 at 0830, Routine, This agent is restricted to outpatient use. Is this drug being given as an outpatient? Yes documented in this encounter Care Teams Hand Funnel Coater Relationship Specialty Start Date End Date Clara Wood MD PCP - General Family Medicine 11/3/17 Ebony [address] [place] [address] documented as of this encounter
--- OUTSIDE RECORDS SUMMARY | 2021-12-30 01:31 | XMS_ITS | Encounter Summary ---
:1955 Author Organization [facility] Address [address] [place] [address] Care Team Providers Name Role Phone Clara Wood MD Primary Care Provider Encounter Details Date Type Department Care Team Description 08/06/2017 Hospital Encounter [facility]- Caryn Unknown, Provider, [facility] [address] [facility] [phone] [place] [address] (Work) [phone] Social History Tobacco Use Types Packs/Day Years Used Date Never Assessed Sex Assigned at Date Recorded Not on file documented as of this encounter Discharge Disposition Disposition Code Departure Means Destination Home or Self Shelter documented in this encounter Plan of Treatment Not on filedocumented as of this encounter Visit Diagnoses Not on filedocumented in this encounter Care Teams Convex Grinder Relationship Specialty Start Date End Date Clara Wood MD PCP - General 09/01/[address] [place] [phone] documented as of this encounter
--- OUTSIDE RECORDS SUMMARY | 2021-12-30 01:31 | XMS_ITS | Encounter Summary ---
:1955 Author Organization [facility] [place] [address] Care Team Providers Name Role Phone Clara Wood MD Primary Care Provider Encounter Details Date Type Department Care Team Description 08/18/2021 Office Visit Radiation Oncology at [facility] Michel MD Prostate cancer [address] [place] [phone] (Wo rk) Social History Tobacco Use Types [...] Sign Reading Time Taken Comments Blood Pressure 115/88 08/18/2021 8:00 AM EDT Pulse 62 08/18/2021 8:00 AM EDT Temperature 36.6 ??C (97.9 ??F) 08/18/2021 8:00 AM EDT Respiratory Rate - - Oxygen Saturation 98% 08/18/2021 8:00 AM EDT Inhaled Oxygen Concentration - - Weight 89.4 kg (197 lb 3.2 oz) 08/18/2021 8:00 AM EDT Height - - Body Mass Index 29.12 04/23/2018 7:39 AM EST documented in this encounter Progress Notes Michel Yip MD - 08/18/2021 7:55 AM EDT Images from the original note were not included. RADIATION ONCOLOGY - Weekly On Treatment Visit Note 08/18/21 MICHEL YIP MD Radiation Oncology [facility] [phone] (paging micromatic hone operator) Pager #[phone] PATIENT IDENTIFICATION Name Amanuel Lomax Date of 1955 PCP Clara Wood MD Referring MD (if different) Dr. Camargo Diagnosis High-Risk Prostate Cancer s/p RALP 11/2017 (pT3a, Gl 3+4, preop PSA 12, +focal SM Gl 3) Rising PSA postop most recently 0.08 (04/2021) NEOADJUVANT / CONCURRENT THERAPY: ST-ADT (planned 6 months) ONCBCN ONCOLOGY (AMB) 06/08/2021 07/14/2021 08/12/2021 leuprolide (Lupron Depot) IM 7.5 mg 7.5 mg 7.5 mg INTENT OF THERAPY: Definitive (Curative) RADIATION TREATMENT DETAILS: Initial Treatment Site Pelvis and Prostate Bed Prescribed Dose 45 Gy in 25 fractions Boost Treatment Site 2 Prostate Bed Prescribed Dose 70.2 Gy in 39 fractions Current Dose: 68.4 Gy in 38 fractions INTERVAL HISTORY General 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 Overall no changes. Mild HF. GI Diarrhea well controlled w diet - [...] MEDICATIONS Medications 08/18/21 0808 Medication Sig Taking? calcium-vitamin D3 600 mg-10 [...] (<-- 0.08 in Apr 2021) EXAM: BP 115/88 Pulse 62 Temp 36.6 ??C (97.9 ??F) Wt 89.4 kg (197 lb 3.2 oz) SpO2 98% BMI 29.12 kg/m?? Constitutional: he appears well-developed and well-nourished. [...] radiotherapy/ADT: Tolerating as anticipated. Continue as planned. Completes tomorrow. Followup: Return to clinic 4 weeks for post treatment check and Niki (anticipate 09/29/21) Will check PSA / T prior documented in this encounter Plan of Treatment Upcoming Encounters Date Type Specialty Care Team Description 01/19/2022 Office Visit Radiation Oncology Clover Covarrubias, [facility] RADIATION ONCJENNIFER [place], [place] [address] (Wo rk) 12/04/2022 Hospital Encounter Gastroenterology Real Jones MD [facility] GASTROENTEROLOGY DEPT. [place], [place] [address] (Wo rk) Scheduled Orders Name Type Priority Associated Diagnoses Order S chedule PSA (Ultrasensitive) Lab Routine Prostate cancer Expe cted: 09/18/2021 (Approximate), Expires: 03/20/2022 Testosterone, total Lab Routine Prostate cancer Expec dwight: 09/18/2021 (Approximate), Expires: 03/20/2022 Scheduled Procedures Name Priority Associated Diagnoses Date/Time COLONOSCOPY, DIAGNOSTIC 10 yr f/up documented as of this encounter Visit Diagnoses Diagnosis Prostate cancer Malignant neoplasm of prostate documented in this encounter Care Teams Owner/Photographer Relationship Specialty Start Date End Date Clara Wood MD PCP - General Family Medicine 01/26/17 [address] [place] [address] documented as of this encounter
--- OUTSIDE RECORDS SUMMARY | 2021-12-30 01:31 | XMS_ITS | Encounter Summary ---
:1955 Author Organization [facility] [place] [address] Care Team Providers Name Role Phone Clara Wood MD Primary Care Provider Encounter Details Date Type Department Care Team Description 06/08/2021 Office Visit Radiation Oncology at [facility] Michel MD Prostate cancer [address] [place] [phone] (Wo rk) Social History Tobacco Use Types [...] Sign Reading Time Taken Comments Blood Pressure 122/90 06/08/2021 10:00 AM EDT Pulse 62 06/08/2021 10:00 AM EDT Temperature 36.5 ??C (97.7 ??F) 06/08/2021 10:00 AM EDT Respiratory Rate 16 06/08/2021 10:00 AM EDT Oxygen Saturation 97% 06/08/2021 10:00 AM EDT Inhaled Oxygen Concentration - - Weight 92.7 kg (204 lb 6.4 oz) 06/08/2021 10:00 AM EDT Height - - Body Mass Index 30.18 04/23/2018 7:39 AM EST documented in this encounter Progress Notes Michel Yip MD - 06/08/2021 11:00 AM EDT Radiation Oncology Established Patient Followup Note Michel Yip MD, MS [facility] Patient Identification: Amanuel Lomax is a 66 y.o. year old male with prostate cancer previously called for consultation. INTERVAL HISTORY Since last seen, Mr. Miguel Foss reports no change in his overall medical condition and is here today for further discussion regarding the role of radiotherapy and possibly start short term ADT and simulation. He still has some stress incontinence, wears a pad and uses approx 1 / day. EXAM BP 122/90 Pulse 62 Temp 36.5 ??C (97.7 ??F) Resp 16 Wt 92.7 kg (204 lb 6.4 oz) SpO2 97% BMI 30.18 kg/m?? Constitutional: he appears well-developed and well-nourished. No distress. Here with Nata. Performance Status: KPS Score ECOG Grade Definition [...] selfcare; totally confined to bed or chair MEDICATIONS Medications 06/08/21 1046 Medication Sig Taking? lisinopriL (Prinivil;Zestril) 40 mg Tablet Take 40 mg by mouth daily. Yes acetaminophen (TYLENOL) 325 mg Tablet Take 650 mg by mouth every 4 hours as needed for Pain. Yes chlorthalidone (Hygroten) 25 mg Tablet 25 mg daily. ASSESSMENT / PLAN Victoriano is a 66 y.o. year old male with rising PSA s/p RALP 11/2017 (pT3a, Gl 3+4, preop PSA 12, +focal SM Gl 3), rising PSA postop - most recently 0.08 (04/2021). We discussed a PSMA scan today - but givenhe has a positive surgical margin and his overall low PSA I think it is likely to be of low yield. Today we also reviewed the rationale, logistics, early toxicities and late complications associated with salvage radiotherapy to the pelvis and prostate bed. Toxicities discussed include radiation cystitis, enteritis and/or proctitis. senior care complications were also reviewed. Informed consent was obtained prior to planned simulation later today. Lupron 7.5mg to be given later today as well. Anticipate radiotherapy to begin with a start date within 1-2 weeks, for a total of 39 planned fractions. Time Attestation: I certify spending at least 40 minutes in providing care to this patient today, 06/08/21 as reflected by the following activities: - review of his medical record in the chart, including interpretation of imaging, laboratory and pathologic studies referenced above - discussion of medical decision making - documenting the outcome of today's visit as above documented in this encounter Plan of Treatment Upcoming Encounters Date Type Specialty Care Team Description 01/19/2022 Office Visit Radiation Oncology Clover Covarrubias APRN [facility] RADIATION ONCJENNIFER [place] [place], [place] [address] (Wo neelam) 12/04/2022 Hospital Encounter Gastroenterology Real Jones MD [facility] GASTROENTEROLOGY DEPT. [place], [place] [address] (Wo neelam) Scheduled Procedures Name Priority Associated Diagnoses Date/Time COLONOSCOPY, DIAGNOSTIC 10 yr f/up documented as of this encounter Visit Diagnoses Diagnosis Prostate cancer Malignant neoplasm of prostate documented in this encounter Care Teams General Counselor Relationship Specialty Start Date End Date Clara Wood MD PCP - General Family Medicine 01/26/17 [address] [place] [address] documented as of this encounter
--- OUTSIDE RECORDS SUMMARY | 2021-12-30 01:31 | XMS_ITS | Encounter Summary ---
:1955 Author Organization [facility] [place] [address] Care Team Providers Name Role Phone Clara Wood MD Primary Care Provider Encounter Details Date Type Department Care Team Description 08/19/2021 Notes Only Radiation Oncology at [facility] Michel MD [address] RADIATION ONCOLOGY [place], [place] [phone] [place] [address] [phone] (Wo rk) Social History Tobacco Use Types [...] as of this encounter Plan of Treatment Upcoming Encounters Date Type Specialty Care Team Description 01/19/2022 Office Visit Radiation Oncology Clover Covarrubias APRN [facility] RADIATION ONCOLO [place], [place] [address] (Wo rk) 12/04/2022 Hospital Encounter Gastroenterology Real Jones MD [facility] GASTROENTEROLOGY DEPT. [place], [place] [address] (Wo rk) Scheduled Procedures Name Priority Associated Diagnoses Date/Time COLONOSCOPY, DIAGNOSTIC 10 yr f/up documented as of this encounter Visit Diagnoses Not on filedocumented in this encounter Care Teams Fork Operator Relationship Specialty Start Date End Date Clara Wood MD PCP - General Family Medicine 01/26/17 [address] [place] [address] documented as of this encounter
--- OUTSIDE RECORDS SUMMARY | 2021-12-30 01:31 | XMS_ITS | Encounter Summary ---
:1955 Author Organization [facility] [place] [address] Care Team Providers Name Role Phone Clara Wood MD Primary Care Provider Encounter Details Date Type Department Care Team Description 08/19/2021 Notes Only Radiation Oncology at PhiMichel turner MD [address] RADIATION ONCOLOGY [place], [place] [phone] [place] [address] [phone] (Wo rk) Social History Tobacco Use Types [...] encounter Progress Notes Michel Yip MD - 08/19/2021 8:00 AM EDT Images from the original note were not included. [facility] Medicine Radiation Oncology Radiation Therapy Completion Note ?? PATIENT IDENTIFICATION ?? Name Amanuel Lomax Date of 1955 ? PCP Clara Wood MD Referring MD (if different) Dr. Camargo ? Diagnosis High-Risk Prostate Cancer s/p RALP 11/2017 (pT3a, Gl 3+4, preop PSA 12, +focal SM Gl 3) ?? Rising PSA postop most recently 0.08 (04/2021) ?? NEOADJUVANT / CONCURRENT THERAPY: ST-ADT (planned 6 months) ONCBCN ONCOLOGY (AMB) 06/08/2021 07/14/2021 08/12/2021 leuprolide (Lupron Depot) IM 7.5 mg 7.5 mg 7.5 mg ?? INTENT OF THERAPY: Definitive (Curative) ?? RADIATION TREATMENT DETAILS: ?? Initial Treatment Site Pelvis and Prostate Bed Prescribed Dose 45 Gy in 25 fractions ? Boost Treatment Site 2 Prostate Bed Prescribed Dose 70.2 Gy in 39 fractions ? Start Date End Date Elapsed Days 06/23/21 08/19/21 56 days ?? Clinical Course Treatment tolerance: With regard to side effects noted during radiotherapy, the patient tolerated treatment extremely well with no significant acute (Grade 3 or above) toxicity or unplanned breaks. Treatment response: The patient's response to treatment was undetermined, as he was largely asymptomatic at the time of presentation. Future assessment will be determined via serial PSA. Follow up plan: Follow-up visit with Radiation Oncology in [facility] is scheduled for 10/06/21 for Lupron and routine post-procedural symptom check; he has received instructions to call this office or seek the helpof the local emergency room if any further problems should arise prior to followup. MICHEL YIP MD 08/19/2021 ??? [employer] (NCI) Comprehensive Cancer [facility] ??? [employer] Commission on Cancer ([employer] [place]) Accredited Cancer Program ??? [employer] ([employer]) Accredited Radiation Oncology Program documented in this encounter Plan of Treatment Upcoming Encounters Date Type Specialty Care Team Description 01/19/2022 Office Visit Radiation Oncology Clover Covarrubias, BUILDINGS AND GROUNDS SUPERVISOR [facility] [address] MACHUCA ONCJENNIFER [place], [place] [address] (Wo rk) 12/04/2022 Hospital Encounter Gastroenterology Real Jones MD [facility] GASTROENTEROLOGY DEPT. [place], [place] [address] (Wo rk) Scheduled Procedures Name Priority Associated Diagnoses Date/Time COLONOSCOPY, DIAGNOSTIC 10 yr f/up documented as of this encounter Visit Diagnoses Not on filedocumented in this encounter Care Teams Cylinder Handler Relationship Specialty Start Date End Date Clara Wood MD PCP - General Family Medicine 01/26/17 [address] [place] [address] documented as of this encounter
--- OUTSIDE RECORDS SUMMARY | 2021-12-30 01:31 | XMS_ITS | Encounter Summary ---
:1955 Author Organization [facility] [place] [address] Care Team Providers Name Role Phone Clara Wood MD Primary Care Provider Encounter Details Date Type Department Care Team Description 07/02/2020 Telephone Radiation Oncology a t [facility] Rad Nurse, [address] [phone] Social History Tobacco Use Types [...] Office Visit Radiation Oncology Clover Covarrubias APRN [facility] RADIATION ONCJENNIFER GY [place], [place] [address] (Wo rk) 12/04/2022 Hospital Encounter Gastroenterology Real Jones MD [facility] GASTROENTEROLOGY DEPT. [place], [place] [address] (Wo rk) Scheduled Procedures Name Priority Associated Diagnoses Date/Time COLONOSCOPY, DIAGNOSTIC 10 yr f/up documented as of this encounter Visit Diagnoses Diagnosis DH ERRONEOUS ENCOUNTER documented in this encounter Care Teams Otorhinolaryngologist Relationship Specialty Start Date End Date Clara Wood MD PCP - General Family Medicine 01/26/17 [address] [place] [address] documented as of this encounter
--- OUTSIDE RECORDS SUMMARY | 2021-12-30 01:31 | XMS_ITS | Encounter Summary ---
:1955 Author Organization [facility] [place] [address] Care Team Providers Name Role Phone Clara Wood MD Primary Care Provider Encounter Details Date Type Department Care Team Description 06/11/2020 Telephone Radiation Oncology a t [facility] Davin Medina [address] [place] [phone] Social History Tobacco Use Types [...] this encounter Miscellaneous Notes Telephone Encounter - Davin Medina - 06/11/2020 3:37 PM EDT Radiation Oncology New Patient Scheduling Note I called Amanuel to inform him that Dr. Camargo has referred him to see Dr. Yip for a radiation new patient consultation. I have confirmed his appointments on 07/02 will include a 30 minute phone visit at 9:30 with our clinic nurse, followed by a [address] Yip. I confirmed our address and answered all of his questions, and our contact information should any further questions or concerns arise. documented in this encounter Plan of Treatment Upcoming Encounters Date Type Specialty Care Team Description 01/19/2022 Office Visit Radiation Oncology Clover Covarrubias, [facility] RADIATION ONCOLO [place], [place] [address] (Wo rk) 12/04/2022 Hospital Encounter Gastroenterology Real Jones MD [facility] GASTROENTEROLOGY DEPT. [place], [place] [address] (Wo rk) Scheduled Procedures Name Priority Associated Diagnoses Date/Time COLONOSCOPY, DIAGNOSTIC 10 yr f/up documented as of this encounter Visit Diagnoses Not on filedocumented in this encounter Care Teams Station Supervisor Relationship Specialty Start Date End Date Clara Wood MD PCP - General Family Medicine 01/26/[address] [facility] [address] [place] [address] documented as of this encounter
--- OUTSIDE RECORDS SUMMARY | 2021-12-30 01:31 | XMS_ITS | Encounter Summary ---
:1955 Author Organization [facility] [place] [address] Care Team Providers Name Role Phone Clara Wood MD Primary Care Provider Encounter Details Date Type Department Care Team Description 06/23/2021 Office Visit Radiation Oncology at [facility] Michel MD Prostate cancer [address] [place] [phone] (Wo rk) Social History Tobacco Use Types [...] Sign Reading Time Taken Comments Blood Pressure 128/89 06/23/2021 3:00 PM EDT Pulse 68 06/23/2021 3:00 PM EDT Temperature 36.6 ??C (97.9 ??F) 06/23/2021 3:00 PM EDT Respiratory Rate 16 06/23/2021 3:00 PM EDT Oxygen Saturation 97% 06/23/2021 3:00 PM EDT Inhaled Oxygen Concentration - - Weight 94.2 kg (207 lb 9.6 oz) 06/23/2021 3:00 PM EDT Height - - Body Mass Index 30.66 04/23/2018 7:39 AM EST documented in this encounter Progress Notes Michel Yip MD - 06/23/2021 3:30 PM EDT Images from the original note were not included. RADIATION ONCOLOGY - Weekly On Treatment Visit Note 06/23/21 MICHEL YIP MD Radiation Oncology [facility] [phone] (paging instantizer operator) Pager #[phone] PATIENT IDENTIFICATION Name Amanuel Lomax Date of 1955 PCP Clara Wood MD Referring MD (if different) Dr. Camargo Diagnosis High-Risk Prostate Cancer s/p RALP 11/2017 (pT3a, Gl 3+4, preop PSA 12, +focal SM Gl 3) Rising PSA postop most recently 0.08 (04/2021) NEOADJUVANT / CONCURRENT THERAPY: ST-ADT (planned 6 months) ONCBCN ONCOLOGY (AMB) 06/08/2021 leuprolide (Lupron Depot) IM 7.5 mg INTENT OF THERAPY: Definitive (Curative) RADIATION TREATMENT DETAILS: Initial Treatment Site Pelvis and Prostate Bed Prescribed Dose 45 Gy in 25 fractions Boost Treatment Site 2 Prostate Bed Prescribed Dose 70.2 Gy in 39 fractions Current Dose: 1.8 Gy in 1 fraction INTERVAL HISTORY General No changes since last seen. Started today. 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 GI No diarrhea. Nocturia 2 x/nt at baseline. Uses 1 pad daily. Occ stress UI. Baseline IPSS history is listed below. Pain: [...] Mild LUTS) 2 (Mild LUTS) MEDICATIONS Medications 06/23/21 1543 Medication Sig Taking? chlorthalidone (Hygroten) 25 mg Tablet 25 mg daily. Yes lisinopriL (Prinivil;Zestril) 40 mg Tablet Take 40 mg by mouth daily. Yes acetaminophen (TYLENOL) 325 mg Tablet Take 650 mg by mouth every 4 hours as needed for Pain. IMAGING I have personally reviewed this patient's interval portal imaging to confirm accurate positioning and alignment which matches the patient's original approved treatment planning images. EXAM: BP 128/89 Pulse 68 Temp 36.6 ??C (97.9 ??F) Resp 16 Wt 94.2 kg (207 lb 9.6 oz) SpO2 97% BMI 30.66 kg/m?? Constitutional: he appears well-developed and well-nourished. [...] Tolerating as anticipated. Continue as planned. Next due week of 07/04. Followup: Return to clinic next week for on treatment check. documented in this encounter Plan of Treatment Upcoming Encounters Date Type Specialty Care Team Description 01/19/2022 Office Visit Radiation Oncology Clover Covarrubias APRN [facility] RADIATION ONCJENNIFER [place], [place] [address] (Wo rk) 12/04/2022 Hospital Encounter Gastroenterology Real Jones MD [facility] GASTROENTEROLOGY DEPT. [place], [place] [address] (Wo rk) Scheduled Procedures Name Priority Associated Diagnoses Date/Time COLONOSCOPY, DIAGNOSTIC 10 yr f/up documented as of this encounter Visit Diagnoses Diagnosis Prostate cancer Malignant neoplasm of prostate documented in this encounter Care Teams Linen Room Houseperson Relationship Specialty Start Date End Date Clara Wood MD PCP - General Family Medicine 01/26/17 [address] [place] [address] documented as of this encounter
--- OUTSIDE RECORDS SUMMARY | 2021-12-30 01:31 | XMS_ITS | Encounter Summary ---
:1955 Author Organization [facility] [place] [address] Care Team Providers Name Role Phone Clara Wood MD Primary Care Provider Encounter Details Date Type Department Care Team Description 11/03/2021 [facility] Prostate [facility] [address] RADIATION ONCOLOGY [place], [place] [phone] Social History Tobacco Use Types Packs/Day Years [...] Sign Reading Time Taken Comments Blood Pressure 128/86 11/03/2021 1:47 PM EDT Pulse 68 11/03/2021 1:47 PM EDT Temperature 36.9 ??C (98.4 ??F) 11/03/2021 1:47 PM EDT Respiratory Rate 18 11/03/2021 1:47 PM EDT Oxygen Saturation 99% 11/03/2021 1:47 PM EDT Inhaled Oxygen Concentration - - Weight 90.2 kg (198 lb 12.8 oz) 11/03/2021 1:47 PM EDT Height 175.3 cm (5' 9) 11/03/2021 1:47 PM EDT Body Mass Index 29.36 11/03/2021 1:47 PM EDT documented in this encounter Progress Notes Clover Covarrubias, WEB FEEDER - 11/03/2021 1:45 PM EDTSummary: 66 yo M dx High-Risk Prostate Cancer s/p RALP 11/2017 //Rising PSA postop most recently 0.08(04/2021). [facility] [place] [address] Phone: RADIATION ONCOLOGY FOLLOW UP NOTE Patient Amanuel Lomax 1955 PCP: Clara Wood MD Urologist: Radiation oncologist: Dr. Michel Yip Chief Complaint: follow up/labs/leuprolide for prostate cancer Time since completed RT:08/19/21 ADT:plan x 6 months Current treatment:Surveillance and lupron to complete 6 months coverage HPI: PATIENT IDENTIFICATION ?? Name Amanuel Lomax Date [...] mg 7.5 mg 7.5 mg 7.5 mg ?? 10/06/21 Lupron 7.5mg 11/03/21 Lupron 7.5mg Due- Final dose to complete [address] Yip has active therapy plan for Lupron monthly dose x 6 months coverage. INTENT OF THERAPY: Definitive (Curative) ?? RADIATION TREATMENT DETAILS: ?? Initial Treatment Site Pelvis and Prostate Bed Prescribed Dose 45 Gy in 25 fractions ? Boost Treatment Site 2 Prostate Bed Prescribed Dose 70.2 Gy in 39 fractions ? Completion Date 08/19/21 ? INTERVAL HISTORY ?? 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 Overall no changes. Mild HF. ?? GI Diarrhea resolved. Eating full diet. ? Nocturia stable at 2x/nt. Uses 1 pad daily. Occ stress UI. No dysuria. ?? IPSS history below. ?? Pain: ?? Pain score today is 0/10. ?? Prostate Today's Scores 07/02/2020 08/26/2020 10/21/2020 05/04/2021 10/06/2021 Sexual Health Inventory for Men 1 (Severe ED) 7 (Severe ED) 1 (Severe ED) 2 (Severe ED) - International Prostate Symptom Score 2 ( Mild LUTS) 2 ( Mild LUTS) 2 ( Mild LUTS) 2 ( Mild LUTS) 2 (Mild LUTS) ? MEDICATIONS ?? Medications 08/18/21 0808 Medication Sig Taking? loperamide (Imodium A-D) 2 mg Capsule Take 2 mg by mouth 4 times daily as needed for Diarrhea. ?? calcium-vitamin D3 600 mg-10 mcg (400 unit) Capsule Take 1 tablet by mouth 2 times daily. ?? lactobacillus rhamnosus, GG, (CULTURELLE) 10 billion cell Capsule Take 1 capsule by mouth daily. ?? chlorthalidone (Hygroten) 25 mg Tablet 25 mg daily. ?? lisinopriL (Prinivil;Zestril) 40 mg Tablet Take 40 mg by mouth daily. ?? acetaminophen (TYLENOL) 325 mg Tablet Take 650 mg by mouth every 4 hours as needed for Pain. ? IMAGING / LABS ?? PSA 05/2020 ?- 0.05??ng/dl 06/2020 ?- 0.06 08/27/2020 ?- 0.06 10/14/2020 ??- 0.06 03/02/2021 - ??0.07?? 04/28/2021 - ?0.08 07/08/21 - 0.01 08/19/21 - <<<COMPLETE RT>> 09/29/21 - <0.01 ?? Testosterone 09/29/21 8.0 ng/dl (LLN 240) ?? Interim HPI: I reviewed the following outside notes: Review of Symptoms: I reviewed the IPSS/KATHERYN/Epic-Cp survey results from today 11/03/2021 ??1:23 PM EDT - Filed by Patient Urinary function problem Very small problem Urinary control Occasional dribbling # of pads used per day One pad per Day Urinary dripping/leakage problem Very small problem 5. How big a problem, if any, has each of the following been for you? Pain or burning with urination No problem Weak urine stream/incomplete bladder emptying No problem Need to urinate frequently No problem 6. How big a problem, if any, has each of the following been for you? Rectal pain or urgency of bowel movements No problem Increased frequency of your bowel movements No problem Overall problems with your bowel movements No problem Bloody stools No problem Ability to reach orgasm Very poor to none Quality of your erections None at all Problem with sexual function or lack of it No problem 10. How big a problem, if any, has each of the following been for you? Hot flashes or breast tenderness/enlargement No problem Feeling depressed No problem Lack of energy No problem Urinary Incontinence Symptom Score (range: 0 - 12) 3 Urinary Irritation/Obstructive Symptom Score (range: 0 - 12) 0 Bowel Symptom Score (range: 0 - 16) 0 Vitality/Hormonal Symptom Score (range: 0 - 12) 0 Overall Prostate Cancer QOL Score (range: 0 - 60) 3 Q - Prostate Followup Survey Question 11/03/2021 ??1:26 PM EDT - Filed by Patient Reason for visit Follow up on existing problem(s) Incomplete emptying Not at all Frequency Not at all Intermittency Not at all Urgency Not at all Weak Stream Not at all Straining Not at all Nocturia 2 times Quality of life Mostly satisfied Total IPSS Score (range: 0 - 35) 2 ( Mild LUTS) Confidence, level - past 6 months Very low Penetration - past 6 months Almost never or never Penetration, maintain - past 6 months Almost never or never Erection, maintain - past 6 months Did not attempt intercourse Sexual satisfaction - past 6 months Did not attempt intercourse Sexual Health in Men (range: 1 - 21) 3 (Severe ED) Patient concerns for today's visit: General: Patient states that she has been doing very well Fatigue: No fatigue to speak of Weight/appetite/diet no significant changes Respiratory: Denies respiratory illness GI: No GI symptoms, no bowel irregularity. No blood in stool : Minimal to 0 LUTS, no hematuria Endocrine: Denies any symptoms from Lupron therapy Sexual health: Not discussed at this time, will review in December visit Muscle skeletal: Denies muscle weakness, no bone pain Bone health: taking Vit D/ Calcium Neuro: No changes Mood: No problems Sleep: Not discussed at this time Function: Exercise: Smoking: Alcohol: Sunscreen: Support/ social relationships: Spouse is Nata Advanced directives not discussed at this time Financial/transportation concerns: Health maintenance: Family history/genetic testing: Performance Status: KPS Score ECOG Grade Definition X 90-100 0 Fully active, able to carry [...] selfcare; totally confined to bed or chair Physical Examination: Body mass index is 29.36 kg/m??. BP 128/86 (Patient Position: Sitting) Pulse 68 Temp 36.9 ??C (98.4 ??F) (Temporal) Resp 18 Ht 175.3 cm (5' 9) Wt 90.2 kg (198 lb 12.8 oz) Constitutional: seen in clinic, no distress HENT: normocephalic, anicteric Cardiovascular: Rate and Rhythm: Normal rate and regular rhythm. Pulmonary: Effort: Pulmonary effort is normal. Genitourinary: Rectum: Deferred at this time, PSA undetectable Musculoskeletal: Normal range of motion. General: No swelling or deformity. Comments: Ambulates without assistance Skin: General: Skin is warm and dry. Neurological: General: No focal deficit present. Mental Status: alert and oriented to person, place, and time. Gait: Gait normal. Psychiatric: Mood and Affect: Mood normal. Behavior: Behavior normal. Thought Content: Thought content normal. Judgment: Judgment normal. New Labs Reviewed this visit: Date PSA Test Notes 09/29/21 <0.01 8.0 Assessment: 66 y.o. presenting for follow up/ lab/leuprolide for prostate cancer. Today is his final Lupron 7.5 mg to complete a 6-month course. He has a f/u visit booked for December with me and labs were sent to him. He has not questions, concerns or even sx. He has done very well through the course of his tx atthis time. There was a delay in getting him seen and so we did not cover everything in this visit with goal of getting him his injection. We will cover more at next visit. Medical Decision Making/Recommendations/Plan: # prostate cancer: reviewed PSA results 0.01 . No concerning reported symptoms or physical examination findings today # effects of EBRT: Acute: 1. LUTS (lower urinary tract symptoms) 2. Bowel dysfunction 3. Sexual health/Erectile Dysfunction 4. Fatigue 5. Mood changes Late: We reviewed potential late effects of radiation that require medical evaluation including : 1. Changes in urinary flow/difficulty passing urine (scarring from radiation) 2. Blood in urine (may be infection, inflammation bladder wall (cystitis), formation of telangiectasia (small, thin blood vessels that are dilated or broken, near the surface of the bladder and may bleed) or bladder/genitourinary cancer 3. Blood in bowel movements (stools)- maybe from hemorrhoids, telangiectasia from radiation, colorectal cancer Symptoms that you should bring to the attention of your provider: Difficulty or changes in your urine flow Blood in your urine or stool # ADT: Labs reviewed: Most recent labs from September Symptoms: Denies symptoms Willing to proceed with next dose today? Today is final 7.5 mg dose Order: Leuprolide 7.5 mg Next dose due: No further doses due. Patient's next appointment is December. # survivorship/lifestyle/wellness: Genetic Risk Evaluation: Body weight/nutrition: Exercise: Bone health: Smoking: Alcohol: Sleep: Sunscreen: Annual exam with PCP: Up to date on vaccinations: Colorectal screening: Lung cancer screening: # resources provided: # referrals done: # follow up: Per NCCN guidelines, PSA and history/physical every 6-12 months X 5 years, then annually. Annual AMI (unless PSA undetectable or prostatectomy). PSA may be checked more frequently depending on risk level or other patient specific factors. Next visit:December Labs: PSA, testosterone, CBC, CMP Amanuel Lomax had the opportunity to ask questions and I answered them to the best of my knowledge. Amanuel Lomax agreed to contact radiation oncology in between visits if he has any questions/concerns or new symptoms in regards to the radiation therapy/prostate cancer Clover Covarrubias MSN, WEB FEEDER, FLOOR SERVICE WORKER [employer] Nurse Practitioner Radiation Oncology documented in this encounter Plan of Treatment Upcoming Encounters Date Type Specialty Care Team Description 01/19/2022 Office Visit Radiation Oncology Clover Covarrubias APRN [facility] RADIATION ONCOLO [place], [place] [address] (Wo rk) 12/04/2022 Hospital Encounter Gastroenterology Real Jones MD [facility] GASTROENTEROLOGY DEPT. [place], [place] [address] (Wo rk) Scheduled Procedures Name Priority Associated Diagnoses Date/Time COLONOSCOPY, DIAGNOSTIC 10 yr f/up documented as of this encounter Visit Diagnoses Diagnosis Prostate cancer Malignant neoplasm of prostate documented in this encounter Care Teams Housekeeping Director Relationship Specialty Start Date End Date Clara Wood MD PCP - General Family Medicine 01/26/17 [address] [place] [address] documented as of this encounter
--- OUTSIDE RECORDS SUMMARY | 2021-12-30 01:31 | XMS_ITS | Encounter Summary ---
:1955 Author Organization [facility] [address] Care Team Providers Name Role Phone Clara Wood MD Primary Care Provider Reason for Visit Consultation (Routine) - Specialty Diagnoses / Procedures Referred By Contact Refer red To Contact Radiation Oncology Diagnoses Prostate cancer Michel Yip MD [facility] Rad Onc Office Procedures Simulation for Radiation Therapy Planning [address] [place] [address] [place] [id number] Referral ID Status Reason Start Date Expiration Date Visits V isits Requested Authorized [id number] Consult, 07/20/2020 10/19/2020 39 39 Test & Treat Encounter Details Date Type Department Care Team Description 07/21/2020 Ancillary Appointment Radiation Oncology at [facility] Yip [facility] [address] [place] [address] [place], [place] RADIATION ONCOL OGY [address] [place], [place] [phone] (Wo rk) Social History Tobacco Use Types [...] Progress Notes Michel Yip MD - 07/21/2020 11:30 AM EDT Today's simulation was cancelled. Please refer to preceding clinic note. documented in this encounter Plan of Treatment Upcoming Encounters Date Type Specialty Care Team Description 01/19/2022 Office Visit Radiation Oncology Clover Covarrubias APRN [facility] RADIATION ONCOLO [place], [place] [address] (Wo rk) 12/04/2022 Hospital Encounter Gastroenterology Real Jones MD [facility] GASTROENTEROLOGY DEPT. [place], [place] [address] (Wo rk) Scheduled Orders Name Type Priority Associated Diagnoses Order S chedule Simulation for Radiation Procedures Routine Prostate cancer Ordered: 07/02/2020 Therapy Planning Scheduled Procedures Name Priority Associated Diagnoses Date/Time COLONOSCOPY, DIAGNOSTIC 10 yr f/up documented as of this encounter Visit Diagnoses Not on filedocumented in this encounter Care Teams Program Developer Relationship Specialty Start Date End Date Clara Wood MD PCP - General Family Medicine 01/26/17 [address] [place] [address] documented as of this encounter
--- OUTSIDE RECORDS SUMMARY | 2021-12-30 01:31 | XMS_ITS | Encounter Summary ---
:1955 Author Organization [facility] [place] [address] Care Team Providers Name Role Phone Clara Wood MD Primary Care Provider Reason for Visit Reason Comments Injections Lupron Treatment/Therapy Plan Authorization (Routine) - Authorized Specialty Diagnoses / Procedures Referred By Contact Refer red To Contact Hematology and Oncology Diagnoses Prostate cancer Michel Yip MD [facility] Infusion Procedures TC LEUPROLIDE ACETATE 7.5MG, FOR DEPOST SUSPENSION (LUPRON DEPOT) [id number] Lupron Depot [address] [place] [address] [place] [id number] Referral ID Status Reason Start Date Expiration Date Visits V isits Requested Authorized [id number] Authorized 05/05/2021 09/15/2022 99 99 Encounter Details Date Type Department Care Team Description 09/08/2021 Infusion Hematology Oncology at [facility] Prostate cancer [address] [place] [address] [phone] Social History Tobacco Use Types [...] Sign Reading Time Taken Comments Blood Pressure 123/72 09/08/2021 2:28 PM EDT Pulse 69 09/08/2021 2:28 PM EDT Temperature 36.5 ??C (97.7 ??F) 09/08/2021 2:28 PM EDT Respiratory Rate 16 09/08/2021 2:28 PM EDT Oxygen Saturation 99% 09/08/2021 2:28 PM EDT Inhaled Oxygen Concentration - - Weight - - Height - - Body Mass Index - - documented in this encounter Progress Notes Claudette Matos RN - 09/08/2021 2:30 PM EDT Infusion Note Diagnosis:Prostate Cancer Treatment: Lupron Injection Lupron 7.5 mg injected in left gluteal. Patient has received Lupron previously and understands side effects. Plan: Return to clinic in one month. He was reminded to call with any questions/concerns. documented in this encounter Plan of Treatment Upcoming Encounters Date Type Specialty Care Team Description 01/19/2022 Office Visit Radiation Oncology Clover Covarrubias APRN [facility] RADIATION ONCOLO [place], [place] [address] (Wo rk) 12/04/2022 Hospital Encounter Gastroenterology Real Jones MD [facility] GASTROENTEROLOGY DEPT. [place], [place] [address] (Wo rk) Scheduled Procedures Name Priority Associated Diagnoses Date/Time COLONOSCOPY, DIAGNOSTIC 10 yr f/up documented as of this encounter Visit Diagnoses Diagnosis Prostate cancer Malignant neoplasm of prostate documented in this encounter Administered Medications Inactive Administered Medications - up to 3 most recent administrations Medication Order MAR Action Action Date Dose Rate Site leuprolide (Lupron Depot) Given 09/08/2021 2:41 PM EDT 7.5 mg Left Gluteal injection 7.5 mg 7.5 mg, Intramuscular, ONCE, 1 dose, On Claudia 09/08/21 at 1445, Routine, This agent is restricted to outpatient use. Is this drug being given as an outpatient? Yes documented in this encounter Care Teams Manager Recruiting Relationship Specialty Start Date End Date Clara Wood MD PCP - General Family Medicine 01/26/[address] [place] [address] documented as of this encounter
--- OUTSIDE RECORDS SUMMARY | 2021-12-30 01:31 | XMS_ITS | Encounter Summary ---
:1955 Author Organization [facility] [place] [address] Care Team Providers Name Role Phone Clara Wood MD Primary Care Provider Encounter Details Date Type Department Care Team Description 06/03/2020 Telephone Urology at [facility] Nabil Camargo MD [facility] cody [facility] [place] [address] UROLOGY [phone] [place] [address] (Wo rk) Social History Tobacco Use Types [...] this encounter Miscellaneous Notes Telephone Encounter - Clover Garcia - 06/03/2020 8:38 AM EST [facility] requested order for PSA pt was at the lab. Routed order to [facility] Lab. documented in this encounter Plan of Treatment Upcoming Encounters Date Type Specialty Care Team Description 01/19/2022 Office Visit Radiation Oncology Clover Covarrubias APRN [facility] RADIATION ONCJENNIFER [place], [place] [address] (Wo rk) 12/04/2022 Hospital Encounter Gastroenterology Real Jones MD [facility] GASTROENTEROLOGY DEPT. [place], [place] [address] (Wo rk) Scheduled Procedures Name Priority Associated Diagnoses Date/Time COLONOSCOPY, DIAGNOSTIC 10 yr f/up documented as of this encounter Visit Diagnoses Not on filedocumented in this encounter Care Teams Dye Lab Technician Relationship Specialty Start Date End Date Clara Wood MD PCP - General Family Medicine 01/26/17 [address] [place] [address] documented as of this encounter
--- OUTSIDE RECORDS SUMMARY | 2021-12-30 01:31 | XMS_ITS | Encounter Summary ---
:1955 Author Organization [facility] Address [address] [place] [address] Care Team Providers Name Role Phone Lisa Tse NP Primary Care Provider Encounter Details Date Type Department Care Team Description 08/25/2015 Hospital Encounter [facility]aryn Unknown, Provider, [facility] [address] [facility] [place] [phone] [place] [address] (Work) [phone] Social History Tobacco Use Types Packs/Day Years Used Date Never Assessed Sex Assigned at Date Recorded Not on file documented as of this encounter Discharge Disposition Disposition Code Departure Means Destination Home or Self Long-Term documented in this encounter Plan of Treatment Not on filedocumented as of this encounter Visit Diagnoses Not on filedocumented in this encounter Care Teams Wine Bottle Inspector Relationship Specialty Start Date End Date Lisa Tse NP PCP - General 12/10/09 08/31/15 [address] [place] [phone] documented as of this encounter
--- OUTSIDE RECORDS SUMMARY | 2021-12-30 01:31 | XMS_ITS | Encounter Summary ---
:1955 Author Organization [facility] [place] [address] Care Team Providers Name Role Phone Clara Wood MD Primary Care Provider Reason for Visit Consultation (Routine) - Authorized Specialty Diagnoses / Procedures Referred By Contact Refer red To Contact Radiation Oncology Diagnoses Prostate cancer Michel Yip MD [facility] Rad Onc Office Procedures Simulation for Radiation Therapy Planning [address] [place] [address] [place] [phone] Referral ID Status Reason Start Date Expiration Visits Visits Date Requested Authorized [id number] Authorized Consult, 05/05/2021 05/05/2022 39 39 Test & Treat Encounter Details Date Type Department Care Team Description 06/08/2021 Ancillary Appointment [facility] [address] [place] [address] RADIATION ONCOL OGY [address] [place], [place] [phone] (Wo rk) Social History Tobacco Use Types [...] Progress Notes Michel Yip MD - 06/08/2021 11:30 AM EDT Simulation Note for External Beam Radiation Treatment Planning [facility] Perla Lomax is a 66 y.o. year old male with high risk prostate cancer who was simulated for definitive radiotherapy to the pelvis and prostate bed today. No changes were made from the plan asdocumented in the original simulation order and instructions. After confirming informed consent, a retrograde urethrogram was performed using a small amount of contrast dye, and then a 2.5mm slice thickness CT scan of the patient's pelvis was obtained. This scan was performed to delineate both target volumes and organs/structures at risk. These images will be used to create a customized treatment plan employing multileaf collimators and beams-eye view to treat the target to prescription dose while maximally sparing organs at risk, with the overall goal of maximizing the likelihood of a favorable disease response while minimizing the likelihood of any short term side effects or mcc complications of therapy. I anticipate his prescription dose will be 70.2 Gy to the prostate bed, delivered in daily 1.8 Gy fractions over the course of 8 weeks. Anticipate therapy to begin within the next 10 days. Furthermore,I anticipate this patient will require IMRT or VMAT treatment planning and delivery as the critical t reatment volume of interest (in this case, pelvic lymphatics and prostate bed) is/are irregular and in close proximity to sensitive structures which must be protected (including his femurs, bladder, rectum, small bowel, and penile bulb). The patient tolerated this procedure well, and was provided instructions with regard to upcoming appointments. documented in this encounter Plan of Treatment Upcoming Encounters Date Type Specialty Care Team Description 01/19/2022 Office Visit Radiation Oncology Clover Covarrubias, STUD MASTER/MISTRESS [facility] RADIATION ONCJENNIFER [place], [place] [address] (Wo rk) 12/04/2022 Hospital Encounter Gastroenterology Real Jones MD [facility] GASTROENTEROLOGY DEPT. [place], [place] [address] (Wo rk) Scheduled Orders Name Type Priority Associated Diagnoses Order S chedule Simulation for Radiation Procedures Routine Prostate cancer Ordered: 05/05/2021 Therapy Planning Scheduled Procedures Name Priority Associated Diagnoses Date/Time COLONOSCOPY, DIAGNOSTIC 10 yr f/up documented as of this encounter Visit Diagnoses Not on filedocumented in this encounter Care Teams Barrel Assembler Relationship Specialty Start Date End Date Clara Wood MD PCP - General Family Medicine 01/26/[address] [facility] [address] [place] [address] documented as of this encounter
--- OUTSIDE RECORDS SUMMARY | 2021-12-30 01:31 | XMS_ITS | Encounter Summary ---
:1955 Author Organization [facility] [place] [address] Care Team Providers Name Role Phone Clara Wood MD Primary Care Provider Encounter Details Date Type Department Care Team Description 07/14/2021 Office Visit Radiation Oncology at [facility] Navi MD Prostate cancer [address] RADIATION ONCOLOGY [place], [place] [phone] Social History Tobacco Use Types Packs/Day Years [...] Sign Reading Time Taken Comments Blood Pressure 128/83 07/14/2021 7:56 AM EDT Pulse 62 07/14/2021 7:56 AM EDT Temperature 36.5 ??C (97.7 ??F) 07/14/2021 7:56 AM EDT Respiratory Rate 16 07/14/2021 7:56 AM EDT Oxygen Saturation 99% 07/14/2021 7:56 AM EDT Inhaled Oxygen Concentration - - Weight 89.8 kg (198 lb) 07/14/2021 7:56 AM EDT Height - - Body Mass Index 29.24 04/23/2018 7:39 AM EST documented in this encounter Progress Notes Navi Leal MD - 07/14/2021 7:40 AM EDT Images from the original note were not included. 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 No hot flashes. Does note some fatigue on his ADT. Due for another Lupron soon. Blood work has not been tested since April. Started ADT in May. GI Some increase in BM with RT solo frequency with metamucil. Not needing Imodium. Around 1-2 BMs daily. No constipation. No blood DC. Nocturia has increased, up to 3-4x nightly; however, has increased fluid intake.Frequency throughout the day has increased as well. Uses 1 pad daily. Occ stress UI. [...] Mild LUTS) 2 (Mild LUTS) MEDICATIONS Medications 07/08/21 1011 Medication Sig Taking? chlorthalidone (Hygroten) 25 mg [...] patient's original approved treatment planning images. EXAM: There were no vitals taken for this visit. Constitutional: he appears well-developed and well-nourished. No distress. Abdomen without masses or tenderness. Skin in gluteal fold intact. Performance Status: KPS Score ECOG Grade Definition [...] selfcare; totally confined to bed or chair Labs from 07/08/21 reviewed. PSA is 0.01, down from 0.08 in Apr 2021. IMPRESSION/PLAN Tolerance to radiotherapy/ADT: Tolerating as anticipated. Continue as planned. Slight increase in BM frequency. Reviewed bowel recs, including daily metamucil, low fiber diet, anddaily probiotic. On ADT, so recommended calcium 600 mg BID and Vitamin D 400-800 IUs daily. Will check DEXA. Blood work checked last week. (CBC, CMP, PSA, testosterone). Will have his next LHRH injection today.. Followup: Return to clinic next week for on treatment check. Navi Leal M.D. (Covering for Dr. Yip). documented in this encounter Plan of Treatment Upcoming Encounters Date Type Specialty Care Team Description 01/19/2022 Office Visit Radiation Oncology Clover Covarrubias APRN [facility] RADIATION ONCOLO [place], [place] [address] (Wo rk) 12/04/2022 Hospital Encounter Gastroenterology Real Jones MD [facility] GASTROENTEROLOGY DEPT. [place], [place] [address] (Wo rk) Scheduled Procedures Name Priority Associated Diagnoses Date/Time COLONOSCOPY, DIAGNOSTIC 10 yr f/up documented as of this encounter Visit Diagnoses Diagnosis Prostate cancer Malignant neoplasm of prostate documented in this encounter Care Teams Hazmat Technician Relationship Specialty Start Date End Date Clara Wood MD PCP - General Family Medicine 01/26/17 [address] [place] [address] documented as of this encounter
--- OUTSIDE RECORDS SUMMARY | 2021-12-30 01:31 | XMS_ITS | Clinical Summary ---
:1955 Author Organization [facility] [address] Care Team Providers Name Role Phone Clara Wood MD Primary Care Provider Allergies No known active allergies Medications Medication Sig Dispensed Refills Start Date End Date Status acetaminophen (TYLENOL) Take 650 mg by 0 Active 325 mg Tablet mouth every 4 hours as needed for Pain. lisinopriL Take 40 mg by 0 Activ e (Prinivil;Zestril) 40 mg mouth daily. Tablet chlorthalidone 25 mg daily. 0 05/14/2020 A ctive (Hygroten) 25 mg Tablet calcium-vitamin D3 600 Take 1 tablet by 0 Active mg-10 mcg (400 unit) mouth 2 times Capsule daily. lactobacillus rhamnosus, Take 1 capsule 0 Active GG, (CULTURELLE) 10 by mouth daily. 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 Hiatal hernia 11/30/2016 Esophageal ulcer 10/16/2012 Hematemesis 10/16/2012 Resolved Problems Problem Noted Date Resolved Date GI bleed 11/28/2016 11/30/2016 Melena 10/16/2012 11/30/2016 Encounters Date Type Specialty Care Team Description 11/03/2021 Infusion Hematology and Oncology Pros hood cancer 11/03/2021 Office Visit Radiation Oncology Clover Covarrubias APRN Prostate cancer 10/06/2021 Infusion Hematology and Oncology Pros hood cancer 10/06/2021 Office Visit Radiation Oncology Michel Yip MD P rostate cancer from Last 3 Months Immunizations Name Administration Dates Next Due Influenza PF, Split 01/22/2017 (Deferred: Patient Refused) Social History Tobacco Use Types Packs/Day Years [...] Assigned at Date Recorded Not on file Last Filed Vital Signs Vital Sign Reading [...] Mass Index 29.36 11/03/2021 1:47 PM EDT Plan of Treatment Upcoming Encounters Date Type Specialty Care Team Description 01/19/2022 Office Visit Radiation Oncology Clover Covarrubias APRN [facility] RADIATION ONCOLO [place], [place] [address] (Wo rk) 12/04/2022 Hospital Encounter Gastroenterology Real Jones MD [facility] GASTROENTEROLOGY DEPT. [place], [place] [address] (Wo rk) Scheduled Procedures Name Priority Associated Diagnoses Date/Time COLONOSCOPY, DIAGNOSTIC 10 yr f/up Health Maintenance Due Date Last Done Comments Covid-19 Vaccine (#1) 1959 Hepatitis C Screening 1972 Lipid Screening 1972 Tdap adult 1973 Tetanus vaccine 1973 Zoster vaccine (1 of 2) 2004 Advance Directive 2009 AAA Screen 2019 Pneumoccocal Vaccine: 65+ (1 - 2019 PCV) Diabetes Screening (HgbA1C or 12/09/2020 12/09/2017, 2017, Glucose) 10/18/2017, Additional history exists Influenza (Flu) vaccine (1 of 1 - 11/24/2021 Influenza standard series) Colonoscopy 12/04/2022 12/04/2012, 12/04/2012, 10/16/2012 Procedures Procedure Name Priority Date/Time Associated Diagnosis Comme nts LAB SCAN 10/04/2021 12:00 AM Results for this EDT procedure are i n the results section . from Last 3 Months Results SCAN DOC: LAB (10/04/2021 12:00 AM EDT) Narrative This result has an attachment that is no t available. Unknown MEDIA MGR SCAN EXT ORDR/RSLT from Last 3 Months Insurance Payer Benefit Plan Subscriber ID Effective Dates Phone Address Type / Group GLORIA MARTIN [id number] 2008-Joe [phone] [address] [address] [address] [place] [address] [phone] (Work) Advance Directives Documents on File Type Date Recorded Patient Cytogenetics Laboratory Manager Explanati on Personal Cytogenetics Laboratory Manager 03/14/2017 2:18 PM Nata Lomax Latest Code Status on File Code Status Date Activated Date Inactivated Comments Full Code 12/07/2017 10:02 AM 12/09/2017 6:27 PM Does patient have capacity to make decision: Yes Full Code 02/28/2017 12:13 PM 03/01/2017 8:43 PM Does patient have capacity to make decision: Yes Full Code 02/28/2017 6:16 AM 02/28/2017 12:13 PM Does patient have capacity to make decision: Yes Full Code 11/28/2016 4:46 PM 11/30/2016 4:12 PM Does patient have capacity to make decision: Yes Care Teams Regional Controller Relationship Specialty Start Date End Date Clara Wood MD PCP - General Family Medicine 01/26/17 [address] [place] [address]
--- OUTSIDE RECORDS SUMMARY | 2021-12-30 01:31 | XMS_ITS | Encounter Summary ---
:1955 Author Organization [place] [address] Care Team Providers Name Role Phone Clara Wood MD Primary Care Provider Encounter Details Date Type Department Care Team Description 07/07/2020 Telephone Urology at [facility] Nabil Camargo [place] [phone] UROLOGY [phone] [place] [id number] (Wo rk) Social History Tobacco Use Types [...] this encounter Miscellaneous Notes Telephone Encounter - Alirio aCrdoza - 07/07/2020 10:25 AM EDT Patient calling, he would like to speak with Dr. Camargo regarding the referral that was sent to [facility]. He just has a couple questions. PHONE: [phone] documented in this encounter Plan of Treatment Upcoming Encounters Date Type Specialty Care Team Description 01/19/2022 Office Visit Radiation Oncology Clover Cvoarrubias APRN [facility] RADIATION ONCOLO [place], [place] [address] (Wo rk) 12/04/2022 Hospital Encounter Gastroenterology Real Jones MD [facility] GASTROENTEROLOGY DEPT. [place], [place] [address] (Wo rk) Scheduled Procedures Name Priority Associated Diagnoses Date/Time COLONOSCOPY, DIAGNOSTIC 10 yr f/up documented as of this encounter Visit Diagnoses Not on filedocumented in this encounter Care Teams Candle Molder Relationship Specialty Start Date End Date Clara Wood MD PCP - General Family Medicine 01/26/17 [address] [place] [address] documented as of this encounter
--- OUTSIDE RECORDS SUMMARY | 2021-12-30 01:31 | XMS_ITS | Encounter Summary ---
:1955 Author Organization [facility] [place] [address] Care Team Providers Name Role Phone Clara Wood MD Primary Care Provider Encounter Details Date Type Department Care Team Description 09/02/2020 TH Visit Radiation Oncology at Michel Yip P [facility] [address] [place] [address] RADIATION ONCOL OGY [address] [place], [place] [phone] (Wo rk) Social History Tobacco Use Types [...] encounter Progress Notes Michel Yip MD - 09/02/2020 12:00 PM EDT Radiation Oncology Telephone Note I called Victoriano on his cell phone today to review recent PSA results, which remain stable at 0.06 ng/dl. We confirmed a [...] clinic office visit. I spent at least 20 minutes in providing care to this patient today, 09/02/20 as reflected by the following activities: - [...] Office Visit Radiation Oncology Clover Covarrubias APRN [facility] RADIATION ONCOLO [place], [place] [address] (Wo rk) 12/04/2022 Hospital Encounter Gastroenterology Real Jones MD [facility] GASTROENTEROLOGY DEPT. [place], [place] [address] (Wo rk) Scheduled Procedures Name Priority Associated Diagnoses Date/Time COLONOSCOPY, DIAGNOSTIC 10 yr f/up documented as of this encounter Visit Diagnoses Diagnosis Prostate cancer Malignant neoplasm of prostate documented in this encounter Care Teams Agricultural Commodities Grader Relationship Specialty Start Date End Date Clara Wood MD PCP - General Family Medicine 01/26/17 [address] [place] [address] documented as of this encounter
--- OUTSIDE RECORDS SUMMARY | 2021-12-30 01:31 | XMS_ITS | Encounter Summary ---
:1955 Author Organization [facility] Address [address] [place] [address] Care Team Providers Name Role Phone Lisa Tse NP Primary Care Provider Encounter Details Date Type Department Care Team Description 08/21/2012 Results Only [facility] Ori Rowan MD Laboratory Services - [address] [place] [address] [place] [address] [place] [address] [phone] Social History Tobacco Use Types Packs/Day Years Used Date Never Assessed Sex Assigned at Date Recorded Not on file documented as of this encounter Plan of Treatment Not on filedocumented as of this encounter Procedures Procedure Name Priority Date/Time Associated Diagnosis Comme nts SURGICAL PATHOLOGY Routine 08/21/2012 21:40 Resul ts for this EDT procedure are i n the results section. documented in this encounter Results SURGICAL PATHOLOGY (08/21/2012 21:40 EDT) Pathology Report: SURGICAL PATHOLOGY REPORT NED GOODEN Reports generated via electronic interface contain ruiz ginal data; LAB however they are lacking the format of the original re port. Caution should be taken when reading/interpreting unfo rmatted reports. Name: ? EVERT HUSSEIN ? Accession #: ? [id number] ? : ? 1955 (Age: 57) ??M ? Collect Date: ? 08/21/2012 ? Location: ? [facility] ? Receive Date: ? 013 ? Provider: ORI ROWAN MD Copy to: CHRISTIANA ROE MD ? Final Pathologic Diagnosis: A. ?Small bowel, duodenum, 2nd portion, b iopsies: ?1. ??Duodenal mucosa with no specific p athologic features. B. ?? Esophagus, lower, 40 cm, biopsies: ? 1. ??Squamocolumnar mucosa with mild chronic in flammation. ? 2. ??Negative for ulcer. ??See comment. Comment: ? Deeper levels of tiss ue were reviewed on specimen (B). ??(Dr. Hirsch)/[facility] Document reviewed and electronically signed by: STARR HIRSCH MD Report ??Date: 08/23/2012 17:03 By the signature above, the attending physician certif ies that he/she has personally conducted a gross and/or microscopic examin ation of the described specimens and rendered or confirmed the above diagnosi s. Specimen(s) Received: A. ?2nd portion duodenum (#1) B. ? Lower esophagus 40 cm (#2) Clinical History: ? Hematemesis, melena, H/O esophageal ulcer Gross Description: ? Received in formalin labelled Amanuel Hussein and #1-2nd portion duodenum are two light tse biopsies measuring 0 .3 x 0.3 x 0.2 cm each. ??The specimens are submitted intact as (A1). Received in formalin labelled Melva Hussein and #2-lower esophagus 40 cm is a 0.4 x 0.3 x 0.1 cm light tse biopsy. ??The specimen is submitted intact as (B1). ??(TIARA Nicole)/tristen End of Report Specimen Performing Organization Address City/State/ZIP Code Phon e Number [facility] [address] [place] [address] [facility] [address] [place] [address] documented in this encounter Visit Diagnoses Not on filedocumented in this encounter Care Teams Botany Teacher Relationship Specialty Start Date End Date Lisa Tse NP PCP - General 12/10/09 08/31/[address] [place] [phone] documented as of this encounter
--- OUTSIDE RECORDS SUMMARY | 2021-12-30 01:31 | XMS_ITS | Encounter Summary ---
:[address] [facility] Address [address] [place] [address] Care Team Providers Name Role Phone Clara Roe MD Primary Care Provider Encounter Details Date Type Department Care Team Description 08/06/2017 Results Only [facility]- Mazin Arzate, [address] [place] [address] [place] [address] (Wo rk) Social History Tobacco Use Types Packs/Day Years Used Date Never Assessed Sex Assigned at Date Recorded Not on file documented as of this encounter Plan of Treatment Not on filedocumented as of this encounter Procedures Procedure Name Priority Date/Time Associated Diagnosis Comme [facility] SURGICAL PATHOLOGY Routine 08/06/2017 16:47 Resul ts for this EDT procedure are i n the results section. documented in this encounter Results SURGICAL PATHOLOGY (08/06/2017 16:47 EDT) Pathology SURGICAL PATHOLOGY REPORT [facility] MED[facility] Report: Reports generated via electronic interface conta in original data; [facility] however they are lacking the format of the original re port. SERVICES Caution should be taken when reading/interpreting unfo rmatted reports. Name: ? EVERT HUSSEIN ? Accession #: ? [id number] ? : ? 1955 (Age: 62 ) ??M ? Collect Date: ? 08/06/2017 ? Location: ? [facility] ? Receive Date: ? 08/07/19 18 ? Provider: MAZIN ROGERS MD Copy to: CLARA ROE MD ? Final Pathologic Diagnosis: A. PROSTATE, BASE, RIGHT, LATERAL, BIOPSY: - Benign prostatic glands and stroma. B. PROSTATE, BASE, RIGHT, MEDIAL, BIOPSY: - Benign prostatic glands and stroma. C. PROSTATE, MID, RIGHT, LATERAL, BIOPSY: - Benign prostatic glands and stroma. D. PROSTATE, MID, RIGHT, MEDIAL, BIOPSY: - Benign prostatic glands and stroma. E. PROSTATE, APEX, RIGHT, LATERAL, BIOPSY: - Benign prostatic glands and stroma. F. PROSTATE, APEX, RIGHT, MEDIAL, BIOPSY: - Benign prostatic glands and stroma. G. PROSTATE, BASE, LEFT, LATERAL, BIOPSY: - ??Adenocarcinoma of the prostate. See comment. ? - Primary (predominant) pattern: Grade 4. ? - Secondary (worst remaining) pattern: Grade 3. ? - Total Sarah score: 7. ? - Percentage of pattern 4: 60%. ? - Percentage of tissue involved by tumor: 75%. ? - Perineural invasion: Present. ? - Extraprostatic extension: Suspicious, see com ment. H. PROSTATE, BASE, LEFT, MEDIAL, BIOPSY: - ??Adenocarcinoma of the prostate. See comment. ? - Primary (predominant) pattern: Grade 4. ? - Secondary (worst remaining) pattern: Grade 3. ? - Total [place] score: 7. ? - Percentage of pattern 4: 70%. ? - Percentage of tissue involved by tumor: 100%. ? - Perineural invasion: Present. I. PROSTATE, MID, LEFT, LATERAL, BIOPSY: - ??Adenocarcinoma of the prostate. See comment. ? - Primary (predominant) pattern: Grade 4. ? - Secondary (worst remaining) pattern: Grade 3. ? - Total Sarah score: 7. ? - Percentage of pattern 4: 60%. ? - Percentage of tissue involved by tumor: 90%. ? - Perineural invasion: Present. J. PROSTATE, MID, LEFT, MEDIAL, BIOPSY: - ??Adenocarcinoma of the prostate. See comment. ? - Primary (predominant) pattern: Grade 4. ? - Secondary (worst remaining) pattern: Grade 3. ? - Total Sarah score: 7. ? - Percentage of pattern 4: 70%. ? - Percentage of tissue involved by tumor: 75%. ? - Perineural invasion: Present. K. PROSTATE, APEX, LEFT, LATERAL, BIOPSY: - ??Adenocarcinoma of the prostate. See comment. ? - Primary (predominant) pattern: Grade 4. ? - Secondary (worst remaining) pattern: Grade 3. ? - Total [place] score: 7. ? - Percentage of pattern 4: 70%. ? - Percentage of tissue involved by tumor: 100%. ? - Perineural invasion: Present. L. PROSTATE, APEX, LEFT, MEDIAL, BIOPSY: - ??Adenocarcinoma of the prostate. See comment. ? - Primary (predominant) pattern: Grade 4. ? - Secondary (worst remaining) pattern: Grade 3. ? - Total Sarah score: 7. ? - Percentage of pattern 4: 60%. ? - Percentage of tissue involved by tumor: 100%. ? - Perineural invasion: Present. Comment: In the left lateral base biopsy, a focus of prostatic adenocarcinoma is surrounded by adipocytes, wh ich is very suspicious for extraprostatic extension. Financial Accounting Analyst slides of this case were reviewed at in tradepartmental consultation conference. ?? New Prostate Cancer Grading System*: This system was developed based on a study of greater than 20,000 prost ate cancer cases treated with radical prostatectomy and greater than 5000 cases treated by radiation thera py. The system was developed to provide a smaller number of grades with t he most significant prognostic differences, with Group 1 hav ing the best prognosis and Group 5 the worst prognosis. The highest grade group is reported for each biopsy series on a patient. Grade Group 1 ([place] score d6) Grade Group 2 (Sarah score 3+4=7) Grade Group 3 ([place] score 4+3=7) Grade Group 4 (Sarah score 8) Grade Group 5 ([place] scores 9-10) *CHELLE Dumont et al: A Contemporary Cancer Grading Sys tem: A Validated Alternative to the [place] Score. Eur Uro 2015 69(3):1 47-435 Laurence Murphy 08/09/2017 7:31 AM Document reviewed and electronically signed by: KATIE SAMSON MD Report ??Date: 08/09/2017 15:08 By the signature above, the attending physician certif ies that he/she has personally conducted a gross and/or microscopic examin ation of the described specimens and rendered or confirmed the above diagnosi s. Specimen(s) Received: A. ??Rt base lateral B. ??Rt base medial C. ??Rt mid lateral D. ??Rt mid medial E. ??Rt apex lateral F. ??Rt apex medial G. ??Lt base lateral (2) H. ??Lt base medial I. ??Lt mid lateral J. ??Lt mid medial K. ??Lt apex lateral L. ??Lt apex medial Clinical History: Elevated PSA Gross Description: A. ?Received in formalin labelled with proper p atient identification (initials H, M) and 1. Rt b ase lateral is a single tse-white tissue core (1.5 cm in length x 0.1 cm in diameter). Submitted intact i n A1. B. ?Received in formalin labelled with proper p atient identification (initials H, M) and 2. Rt base medial are two tse-white tissue cores (1.4 cm and 0.4 cm in length, and each 0.1 cm in diamete r). Entirely submitted in B1. C. ?Received in formalin labelled with proper p atient identification (initials H, M) and 3. Rt mid lateral is a single tse-white tissue core (1.4 cm in length x 0.1 cm in diameter). Submitted intact i n C1. D. ?Received in formalin labelled with proper p atient identification (initials H, M) and 4. Rt mid medial are two t an-white tissue cores (1.7 cm and 0.2 cm in length, and each 0.1 cm in diamete r). Entirely submitted in D1. E. ? Received in formalin labelled with proper patient identification (initials H, M) and 5. Rt a pex lateral is a single tse-white tissue core (2.0 cm in length x 0.1 cm in diameter). Submitted intact i n E1. F. ?Received in formalin labelled with proper p atient identification (initials H, M) and 6. Rt apex medial are two tse-white tissue cores (1.7 cm and 0.6 cm in length, and each 0.1 cm in diamete r). Entirely submitted in F1. G. ?Received in formalin labelled with proper p atient identification (initials H, M) and 7. Lt b ase lateral are two tse-white tissue cores (0.5 cm and 0.5 cm in length, and each 0.1 cm in diamete r). Entirely submitted in G1. H. ?Received in formalin labelled with proper p atient identification (initials H, M) and 8. Lt base medial is a single tse-white tissue core (1.9 cm in length x 0.1 cm in diameter). Submitted intact i n H1. I. ?Received in formalin labelled with proper p atient identification (initials H, M) and 9. Lt mid lateral is a single tse-white tissue core (1.5 cm in length x 0.1 cm in diameter). Submitted intact i n I 1. J. ?Received in formalin labelled with proper p atient identification (initials H, M) and 10. Lt mid medial are two tse-white tissue cores (1.7 cm and 0.3 cm in length, and each 0.1 cm in diamete r). Entirely submitted in J1. K. ?Received in formalin labelled with proper p atient identification (initials H, M) and 11. Lt apex lateral is a single tse-white tissue core (1.9 cm in length x 0.1 cm in diameter). Submitted intact i n K1. L. ?Received in formalin labelled with proper p atient identification (initials H, M) and 12. Lt apex medial are two tse-white tissue cores (1.7 cm and 0.4 cm in length, and each 0.1 cm in diamete r). Entirely submitted in L1. MAMADOU Sepulveda (ASCP) 08/07/2017 8:38 AM End of Report Specimen Performing Organization Address City/State/ZIP Code Phon e Number [facility] [address] [place] [address] SERVICES documented in this encounter Visit Diagnoses Not on filedocumented in this encounter Care Teams Director Of Education And Training Relationship Specialty Start Date End Date Clara Roe MD PCP - General 09/01/[address] [place] [phone] documented as of this encounter
--- OUTSIDE RECORDS SUMMARY | 2021-12-30 01:31 | XMS_ITS | Encounter Summary ---
:1955 Author Organization [facility] [place] [address] Care Team Providers Name Role Phone Clara Wood MD Primary Care Provider Encounter Details Date Type Department Care Team Description 07/28/2021 Office Visit Radiation Oncology at [facility] Michel MD Prostate cancer [address] [place] [phone] (Wo rk) Social History Tobacco Use Types [...] Sign Reading Time Taken Comments Blood Pressure 116/73 07/28/2021 8:00 AM EDT Pulse 60 07/28/2021 8:00 AM EDT Temperature 36.4 ??C (97.5 ??F) 07/28/2021 8:00 AM EDT Respiratory Rate 16 07/28/2021 8:00 AM EDT Oxygen Saturation 98% 07/28/2021 8:00 AM EDT Inhaled Oxygen Concentration - - Weight 88.9 kg (196 lb) 07/28/2021 8:00 AM EDT Height - - Body Mass Index 28.94 04/23/2018 7:39 AM EST documented in this encounter Progress Notes Michel Yip MD - 07/28/2021 8:30 AM EDT Images from the original note were not included. 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 Fatigue from last weeks vaccinations has resolved. Overall no changes. GI Diarrhea well controlled [...] Mild LUTS) 2 (Mild LUTS) MEDICATIONS Medications 07/28/21 0815 Medication Sig Taking? calcium-vitamin D3 600 mg-10 [...] (<-- 0.08 in Apr 2021) EXAM: BP 116/73 Pulse 60 Temp 36.4 ??C (97.5 ??F) Resp 16 Wt 88.9 kg (196 lb) SpO2 98% BMI 28.94 kg/m?? Constitutional: he appears well-developed and well-nourished. [...] Radiation Oncology Clover Covarrubias APRN [facility] RADIATION [place]COLO [place], [place] [address] (Wo rk) 12/04/2022 Hospital Encounter Gastroenterology Real Jones MD [facility] GASTROENTEROLOGY DEPT. [place], [place] [address] (Wo rk) Scheduled Procedures Name Priority Associated Diagnoses Date/Time COLONOSCOPY, DIAGNOSTIC 10 yr f/up documented as of this encounter Visit Diagnoses Diagnosis Prostate cancer Malignant neoplasm of prostate documented in this encounter Care Teams Survey Project Manager Relationship Specialty Start Date End Date Clara Wood MD PCP - General Family Medicine 01/26/17 [address] [place] [address] documented as of this encounter
--- OUTSIDE RECORDS SUMMARY | 2021-12-30 01:31 | XMS_ITS | Encounter Summary ---
:1955 Author Organization [facility] Address [address] [place] [address] Care Team Providers Name Role Phone Clara Wood MD Primary Care Provider Encounter Details Date Type Department Care Team Description 03/29/2021 Lab Requisition [facility] Outr Resulting Lab, Pathology & Laboratory Provider [facility] [address] [place], [place] [phone] Social History Tobacco Use Types Packs/Day Years Used Date Never Assessed Sex Assigned at Date Recorded Not on file documented as of this encounter Plan of Treatment Not on filedocumented as of this encounter Procedures Procedure Name Priority Date/Time Associated Diagnosis Comme nts HEPATITIS C AB W Routine 03/28/2021 14:28 Results for this REFLEX TO HCV RNA EST procedure are in BY PCR the results section. documented in this encounter Results HEPATITIS C AB W REFLEX TO HCV RNA BY PCR (03/28/2021 14:28 EST) Pathologist Sig nature Hep C Antibody Negative Negative [facility] Specimen Blood - Venous blood (substance) Performing Organization Address City/State/ZIP Code Phon e Number [facility] [address] [place] [address] SERVICES documented in this encounter Visit Diagnoses Not on filedocumented in this encounter Care Teams Commercial Loan Specialist Relationship Specialty Start Date End Date Clara Wood MD PCP - General 09/01/[address] [phone] documented as of this encounter
--- OUTSIDE RECORDS SUMMARY | 2021-12-30 01:31 | XMS_ITS | Encounter Summary ---
:1955 Author Organization [facility] [place] [address] Care Team Providers Name Role Phone Clara Wood MD Primary Care Provider Reason for Visit Reason Comments Injections Lupron Treatment/Therapy Plan Authorization (Routine) - Authorized Specialty Diagnoses / Procedures Referred By Contact Refer red To Contact Hematology and Oncology Diagnoses Prostate cancer Michel Yip MD St [facility] Onc Infusion Procedures TC LEUPROLIDE ACETATE 7.5MG, FOR DEPOST SUSPENSION (LUPRON DEPOT) [id number] Lupron Depot [address] [place] [address] [place] [id number] Referral ID Status Reason Start Date Expiration Date Visits V isits Requested Authorized [id number] Authorized 05/05/2021 09/15/2022 99 99 Encounter Details Date Type Department Care Team Description 10/06/2021 Infusion Hematology Oncology at [facility] Prostate cancer [address] [place] [phone] Social History Tobacco Use Types [...] documented as of this encounter Progress Notes Claudette Matos RN - 10/06/2021 2:30 PM EDT Infusion Note Diagnosis:Prostate Cancer Treatment: Lupron Injection Mr. Dubose saw Dr. Yip in clinic prior to his Lupron injection. He has no questions/concerns and is ready for treatment today. Lupron 7.5 mg injected in right buttocks Plan: Return to clinic in one month. documented in this encounter Plan of Treatment Upcoming Encounters Date Type Specialty Care Team Description 01/19/2022 Office Visit Radiation Oncology Clover Covarrubias APRN [facility] RADIATION ONCOLO [place], [place] [address] (Wo rk) 12/04/2022 Hospital Encounter Gastroenterology Real Jones MD [facility] GASTROENTEROLOGY DEPT. [place], [place] [address] (Wo rk) Scheduled Procedures Name Priority Associated Diagnoses Date/Time COLONOSCOPY, DIAGNOSTIC 10 yr f/up documented as of this encounter Visit Diagnoses Diagnosis Prostate cancer Malignant neoplasm of prostate documented in this encounter Administered Medications Inactive Administered Medications - up to 3 most recent administrations Medication Order MAR Action Action Date Dose Rate Site leuprolide (Lupron Depot) Given 10/06/2021 2:33 PM EDT 7.5 mg Right Gluteal injection 7.5 mg 7.5 mg, Intramuscular, ONCE, 1 dose, On Claudia 10/06/21 at 1445, Routine, This agent is restricted to outpatient use. Is this drug being given as an outpatient? Yes documented in this encounter Care Teams Direct Marketing Specialist Relationship Specialty Start Date End Date Clara Wood MD PCP - General Family Medicine 01/26/17 [address] [place] [address] documented as of this encounter
--- OUTSIDE RECORDS SUMMARY | 2021-12-30 01:31 | XMS_ITS | Encounter Summary ---
:1955 Author Organization [facility] [place] [address] Care Team Providers Name Role Phone Clara Wood MD Primary Care Provider Encounter Details Date Type Department Care Team Description 07/08/2021 Office Visit Radiation Oncology at [facility] Anupam spencer MD Prostate cancer [address] RADIATION ONCOLOGY [place], [place] [phone] Social History Tobacco Use Types Packs/Day Years [...] Sign Reading Time Taken Comments Blood Pressure 119/81 07/08/2021 9:00 AM EDT Pulse 59 07/08/2021 9:00 AM EDT Temperature 36.7 ??C (98 ??F) 07/08/2021 9:00 AM EDT Respiratory Rate 12 07/08/2021 9:00 AM EDT Oxygen Saturation 98% 07/08/2021 9:00 AM EDT Inhaled Oxygen Concentration - - Weight 90.9 kg (200 lb 6.4 oz) 07/08/2021 9:00 AM EDT Height - - Body Mass Index 29.59 04/23/2018 7:39 AM EST documented in this encounter Patient Instructions Patient InstructionsHarAnupam mac MD - 07/08/2021 10:34 AM EDT Regarding your bowel movements, in the weeks ahead there may be a tendency for the bowels to loosen.To help prevent this, we suggest the following: (1) Please begin a daily probiotic. These may be found over the counter. We don't recommend any one in particular, though best to use a product from a reputable gas pumper. (2) Generally, a lower fiber diet helps slow the stools. Please review attached recommendations. (3) Once you are cutting back on fiber in your diet, please begin daily metamucil, one teaspoon, powdered form, in water or juice at breakfast. For your bone health, please begin calcium 600 mg twice daily with meals. Also, please take Vitamin D 400-800 IUs daily. These may be found as a combination tablet, if you wish. Also, we will set up a DEXA scan shortly, to double-check your bone density. Please call with any questions or concerns at any time. documented in this encounter Progress Notes Anupam Addison MD - 07/08/2021 9:45 AM EDT Images from the original note were not included. 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 No hot flashes. Does note some fatigue on his ADT. Due for another Lupron soon. Blood work has not been tested since April. Started ADT in May. GI Frequency increased, around 4-5 BMs daily. Softer and looser over the past week, but no kortney diarrhea. No constipation. No blood [place]. Nocturia has increased, up to 3-4x nightly; [...] original approved treatment planning images. EXAM: BP 119/81 Pulse 59 Temp 36.7 ??C (98 ??F) Resp 12 Wt 90.9 kg (200 lb 6.4 oz) SpO2 98% BMI 29.59 kg/m?? Constitutional: he appears well-developed and well-nourished. [...] radiotherapy/ADT: Tolerating as anticipated. Continue as planned. Looser stools suggesting early RT proctitis. Reviewed bowel recs, including daily metamucil, low fiber diet, and daily probiotic. On ADT, so recommended calcium 600 mg BID and Vitamin D 400-800 IUs daily. Will check DEXA. Will check blood work today (CBC, CMP, PSA, testosterone) in prep for next LHRH injection. Followup: Return to clinic next week for on treatment check. documented in this encounter Plan of Treatment Upcoming Encounters Date Type Specialty Care Team Description 01/19/2022 Office Visit Radiation Oncology Clover Covarrubias APRN [facility] RADIATION ON[place], [place] [address] (Wo neelam) 12/04/2022 Hospital Encounter Gastroenterology Real Jones MD [facility] GASTROENTEROLOGY DEPT. [place], [place] [address] (Wo neelam) Scheduled Orders Name Type Priority Associated Diagnoses Order S chedule CBC (with Diff) Lab Routine Prostate cancer Expected: 07/08/2021 (Approximate), Expires: 2022 Comprehensive metabolic Lab Routine Prostate cancer E xpected: 07/08/2021, panel (non-fasting) Expires: 01/07/2022 PSA (Ultrasensitive) Lab Routine Prostate cancer Expe cted: 07/08/2021 (Approximate), Expires: 2022 Testosterone, total Lab Routine Prostate cancer Expec dwight: 07/08/2021 (Approximate), Expires: 2022 DXA Central Spine, Hip, Imaging Routine Prostate cancer E xpected: 07/08/2021, and/or Whole Body Expires: 1 (Generic) Scheduled Procedures Name Priority Associated Diagnoses Date/Time COLONOSCOPY, DIAGNOSTIC 10 yr f/up documented as of this encounter Visit Diagnoses Diagnosis Prostate cancer Malignant neoplasm of prostate documented in this encounter Care Teams Financial Institution Manager Relationship Specialty Start Date End Date Clara Wood MD PCP - General Family Medicine 01/26/17 [address] [place] [address] documented as of this encounter
--- OUTSIDE RECORDS SUMMARY | 2021-12-30 01:31 | XMS_ITS | Encounter Summary ---
:1955 Author Organization [facility] [place] [address] Care Team Providers Name Role Phone Clara Wood MD Primary Care Provider Reason for Visit Reason Comments Chemotherapy Monthly lupron Treatment/Therapy Plan Authorization (Routine) - Authorized Specialty Diagnoses / Procedures Referred By Contact Refer red To Contact Hematology and Oncology Diagnoses Prostate cancer Michel Yip MD [facility] Hem Onc Infusion Procedures TC LEUPROLIDE ACETATE 7.5MG, FOR DEPOST SUSPENSION (LUPRON DEPOT) [id number] Lupron Depot [address] [place] [address] [place] [id number] Referral ID Status Reason Start Date Expiration Date Visits V isits Requested Authorized [id number] Authorized 05/05/2021 09/15/2022 99 99 Encounter Details Date Type Department Care Team Description 08/12/2021 Infusion Hematology Oncology at [facility] Prostate cancer [address] [place] [phone] Social History Tobacco Use Types [...] Sign Reading Time Taken Comments Blood Pressure 105/69 08/12/2021 8:08 AM EDT Pulse 63 08/12/2021 8:08 AM EDT Temperature 36.4 ??C (97.5 ??F) 08/12/2021 8:08 AM EDT Respiratory Rate 16 08/12/2021 8:08 AM EDT Oxygen Saturation 97% 08/12/2021 8:08 AM EDT Inhaled Oxygen Concentration - - Weight - - Height - - Body Mass Index - - documented in this encounter Progress Notes Yisel Mendez RN - 08/12/2021 8:30 AM EDT INFUSION THERAPY ADMINISTRATION NOTES TIME TREATMENT STARTED: 809 TIME TREATMENT ENDED: 829 DIAGNOSIS: prostate cancer PROTOCOL:na CYCLE #: monthly REASON FOR VISIT: lupron SUBJECTIVE Amanuel Lomax offers no complaints. OBJECTIVE lupron 7.5 mg IM in right gluteal REACTIONS (DESCRIPTION, TIME, INTERVENTION AND EFFECTIVENESS) none ASSESSMENT Amanuel Lomax was awake, alert and he tolerated treatment well. PLAN Return to clinic per routine. documented in this encounter Plan of Treatment Upcoming Encounters Date Type Specialty Care Team Description 01/19/2022 Office Visit Radiation Oncology Clover Covarrubias APRN [facility] RADIATION ONCOL[place], [place] [address] (Kalpesh richter) 12/04/2022 Hospital Encounter Gastroenterology Real Jones MD [facility] GASTROENTEROLOGY DEPT. [place], [place] [address] (Kalpesh richter) Scheduled Procedures Name Priority Associated Diagnoses Date/Time COLONOSCOPY, DIAGNOSTIC 10 yr f/up documented as of this encounter Visit Diagnoses Diagnosis Prostate cancer Malignant neoplasm of prostate documented in this encounter Administered Medications Inactive Administered Medications - up to 3 most recent administrations Medication Order MAR Action Action Date Dose Rate Site leuprolide (Lupron Depot) Given 08/12/2021 8:19 AM EDT 7.5 mg Right Gluteal injection 7.5 mg 7.5 mg, Intramuscular, ONCE, 1 dose, On Sun08/12/21 at 0830, Routine, This agent is restricted to outpatient use. Is this drug being given as an outpatient? Yes documented in this encounter Care Teams Warehouse Packaging Supervisor Relationship Specialty Start Date End Date Clara Wood MD PCP - General Family Medicine 01/26/17 [address] [place] [address] documented as of this encounter
--- OUTSIDE RECORDS SUMMARY | 2021-12-30 01:31 | XMS_ITS | Encounter Summary ---
:1955 Author Organization [facility] [place] [address] Care Team Providers Name Role Phone Clara Wood MD Primary Care Provider Reason for Visit Reason Comments Injections Lupron Treatment/Therapy Plan Authorization (Routine) - Authorized Specialty Diagnoses / Procedures Referred By Contact Refer red To Contact Hematology and Oncology Diagnoses Prostate cancer Michel Yip MD St Hem Onc Infusion Procedures TC LEUPROLIDE ACETATE 7.5MG, FOR DEPOST SUSPENSION (LUPRON DEPOT) [id number] Lupron Depot [address] [place] [address] [place] [id number] Referral ID Status Reason Start Date Expiration Date Visits V isits Requested Authorized [id number] Authorized 05/05/2021 09/15/2022 99 99 Encounter Details Date Type Department Care Team Description 11/03/2021 Infusion Hematology Oncology at [facility] Prostate cancer [address] [place] [address] [phone] Social History Tobacco Use Types [...] documented as of this encounter Progress Notes Monica Art RN - 11/03/2021 2:30 PM EDT Infusion Note Diagnosis:Prostate Cancer [...] Office Visit Radiation Oncology Clover Covarrubias APRN [facility] RADIATION ONCOLO [place]Y [place], [place] [address] (Wo rk) 12/04/2022 Hospital Encounter Gastroenterology Real Jones MD [facility] GASTROENTEROLOGY DEPT. [place], [place] [address] (Wo rk) Scheduled Procedures Name Priority Associated Diagnoses Date/Time COLONOSCOPY, DIAGNOSTIC 10 yr f/up documented as of this encounter Visit Diagnoses Diagnosis Prostate cancer Malignant neoplasm of prostate documented in this encounter Administered Medications Inactive Administered Medications - up to 3 most recent administrations Medication Order MAR Action Action Date Dose Rate Site leuprolide (Lupron Depot) Given 11/03/2021 2:33 PM EDT 7.5 mg Left Gluteal injection 7.5 mg 7.5 mg, Intramuscular, ONCE, 1 dose, On Claudia 11/03/21 at 1445, Routine, This agent is restricted to outpatient use. Is this drug being given as an outpatient? Yes documented in this encounter Care Teams Chainer Relationship Specialty Start Date End Date Clara Wood MD PCP - General Family Medicine 01/26/17 Ebony ROSEN [address] [place] [address] documented as of this encounter
--- OUTSIDE RECORDS SUMMARY | 2021-12-30 01:31 | XMS_ITS | Encounter Summary ---
:[address] [facility] Address [address] [place] [address] Care Team Providers Name Role Phone Clara Wood MD Primary Care Provider Encounter Details Date Type Department Care Team Description 12/29/2016 Hospital Encounter [facility]- Caryn Unknown, Provider, [facility] [address] [facility] [phone] [place] [address] (Work) [phone] Social History Tobacco Use Types Packs/Day Years Used Date Never Assessed Sex Assigned at Date Recorded Not on file documented as of this encounter Discharge Disposition Disposition Code Departure Means Destination Home or Self Residential documented in this encounter Plan of Treatment Not on filedocumented as of this encounter Visit Diagnoses Not on filedocumented in this encounter Care Teams Orchardist Relationship Specialty Start Date End Date Clara Wood MD PCP - General 09/01/[address] [place] [phone] documented as of this encounter
--- OUTSIDE RECORDS SUMMARY | 2021-12-30 01:31 | XMS_ITS | Encounter Summary ---
:1955 Author Organization [facility] [place] [address] Care Team Providers Name Role Phone Clara Wood MD Primary Care Provider Encounter Details Date Type Department Care Team Description 07/01/2021 Office Visit Radiation Oncology at [facility] thaddeus Odell MD Prostate cancer [address] RADIATION ONCOLOGY [place], [place] [phone] Social History Tobacco Use Types Packs/Day Years [...] Sign Reading Time Taken Comments Blood Pressure 130/85 07/01/2021 10:00 AM EDT Pulse 57 07/01/2021 10:00 AM EDT Temperature 36.5 ??C (97.7 ??F) 07/01/2021 10:00 AM EDT Respiratory Rate 16 07/01/2021 10:00 AM EDT Oxygen Saturation 96% 07/01/2021 10:00 AM EDT Inhaled Oxygen Concentration - - Weight 90.6 kg (199 lb 12.8 oz) 07/01/2021 10:00 AM EDT Height - - Body Mass Index 29.51 04/23/2018 7:39 AM EST documented in this encounter Progress Notes Gerardo Ervin MD - 07/01/2021 10:25 AM EDT Images from the original note were not included. RADIATION ONCOLOGY - Weekly On Treatment Visit Note 07/01/21 GERARDO ERVIN MD Radiation Oncology [facility] [phone] (paging optical goods drill operator) Pager #[phone] PATIENT IDENTIFICATION Name Amanuel Lomax Date of [...] 70.2 Gy in 39 fractions Current Dose: 12.6 Gy in 7 fractions INTERVAL HISTORY General No changes since last seen. Started today. 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 GI No diarrhea. Nocturia 2 x/nt [...] Mild LUTS) 2 (Mild LUTS) MEDICATIONS Medications 07/01/21 1040 Medication Sig Taking? chlorthalidone (Hygroten) 25 mg Tablet 25 mg daily. Yes lisinopriL (Prinivil;Zestril) 40 mg Tablet Take 40 mg by mouth daily. Yes acetaminophen (TYLENOL) 325 mg Tablet Take 650 mg by mouth every 4 hours as needed for Pain. Yes IMAGING I have personally reviewed this patient's interval portal imaging to confirm accurate positioning and alignment which matches the patient's original approved treatment planning images. EXAM: BP 130/85 Pulse 57 Temp 36.5 ??C (97.7 ??F) Resp 16 Wt 90.6 kg (199 lb 12.8 oz) SpO2 96% BMI 29.51 kg/m?? Constitutional: he appears well-developed and well-nourished. [...] as anticipated. Continue as planned. Next Lupron due 07/08. Followup: Return to clinic next week for on treatment check. documented in this encounter Plan of Treatment Upcoming Encounters Date Type Specialty Care Team Description 01/19/2022 Office Visit Radiation Oncology Clover Covarrubias APRN [facility] RADIATION ONCOLO [place], [place] [address] (Wo rk) 12/04/2022 Hospital Encounter Gastroenterology Real Jones MD [facility] GASTROENTEROLOGY DEPT. [place], [place] [address] (Wo rk) Scheduled Procedures Name Priority Associated Diagnoses Date/Time COLONOSCOPY, DIAGNOSTIC 10 yr f/up documented as of this encounter Visit Diagnoses Diagnosis Prostate cancer Malignant neoplasm of prostate documented in this encounter Care Teams Tube Room Supervisor Relationship Specialty Start Date End Date Clara Wood MD PCP - General Family Medicine 01/26/17 Ebony ROSEN [address] [place] [address] documented as of this encounter
--- OUTSIDE RECORDS SUMMARY | 2021-12-30 01:31 | XMS_ITS | Encounter Summary ---
:1955 Author Organization [facility] [place] [address] Care Team Providers Name Role Phone Clara Wood MD Primary Care Provider Reason for Visit Reason Comments Injections Lupron 7.5mg Treatment/Therapy Plan Authorization (Routine) - Authorized Specialty Diagnoses / Procedures Referred By Contact Refer red To Contact Hematology and Oncology Diagnoses Prostate cancer Michel Yip MD [facility] Hem Onc Infusion Procedures TC LEUPROLIDE ACETATE 7.5MG, FOR DEPOST SUSPENSION (LUPRON DEPOT) [id number] Lupron Depot [address] [place] [address] [place] [id number] Referral ID Status Reason Start Date Expiration Date Visits V isits Requested Authorized [id number] Authorized 05/05/2021 09/15/2022 99 99 Encounter Details Date Type Department Care Team Description 06/08/2021 Infusion Hematology Oncology at [facility] Prostate cancer [address] [place] [address] [phone] Social History Tobacco Use Types [...] documented as of this encounter Progress Notes Isabela Montanez RN - 06/08/2021 1:00 PM EDT Infusion Note Diagnosis:Prostate Cancer Treatment: Lupron Injection Lupron 7.5mg injected in left gluteal Patient instructed on side effects of Lupron. Patient states understanding of teaching, Patient aware to call clinic with any questions or concerns. Plan: Return to clinic as scheduled. documented in this encounter Plan of Treatment Upcoming Encounters Date Type Specialty Care Team Description 01/19/2022 Office Visit Radiation Oncology Clover Covarrubias APRN [facility] RADIATION ONCOLO [place], [place] [address] (Wo rk) 12/04/2022 Hospital Encounter Gastroenterology Real Jones MD [facility] GASTROENTEROLOGY DEPT. [place], [place] [address] (Wo rk) Scheduled Procedures Name Priority Associated Diagnoses Date/Time COLONOSCOPY, DIAGNOSTIC 10 yr f/up documented as of this encounter Visit Diagnoses Diagnosis Prostate cancer Malignant neoplasm of prostate documented in this encounter Administered Medications Inactive Administered Medications - up to 3 most recent administrations Medication Order MAR Action Action Date Dose Rate Site leuprolide (Lupron Depot) Given 06/08/2021 12:30 PM 7.5 mg Left Gluteal injection 7.5 mg EDT 7.5 mg, Intramuscular, ONCE, 1 dose, On Sun06/08/21 at 1230, Routine, This agent is restricted to outpatient use. Is this drug being given as an outpatient? Yes documented in this encounter Care Teams Monogram Operator Relationship Specialty Start Date End Date Clara Wood MD PCP - General Family Medicine 01/26/17 Ebony ROSEN [address] [place] [address] documented as of this encounter
--- OUTSIDE RECORDS SUMMARY | 2021-12-30 01:31 | XMS_ITS | Encounter Summary ---
:1955 Author Organization [facility] [place] [address] Care Team Providers Name Role Phone Clara Wood MD Primary Care Provider Encounter Details Date Type Department Care Team Description 04/28/2021 Orders Only Radiation Oncology at [facility] Michel MD Prostate cancer [address] RADIATION ONCOLOGY [facility], [facility] [phone] Social History Tobacco Use Types Packs/Day Years [...] Office Visit Radiation Oncology Clover Covarrubias APRN [facility] RADIATION ONC[place]ENN[place]ER [place], [place] [address] (Wo rk) 12/04/2022 Hospital Encounter Gastroenterology Real Jones MD [facility] GASTROENTEROLOGY DEPT. [place], [place] [address] (Wo rk) Scheduled Procedures Name Priority Associated Diagnoses Date/Time COLONOSCOPY, DIAGNOSTIC 10 yr f/up documented as of this encounter Visit Diagnoses Diagnosis Prostate cancer Malignant neoplasm of prostate documented in this encounter Care Teams Outside Energy Sales Representatives Relationship Specialty Start Date End Date Clara Wood MD PCP - General Family Medicine 01/26/[address] [facility] [address] [place] [address] documented as of this encounter
--- OUTSIDE RECORDS SUMMARY | 2021-12-30 01:31 | XMS_ITS | Encounter Summary ---
:1955 Author Organization [facility] Address [address] [place] [address] Care Team Providers Name Role Phone Unavailable Primary Care Provider Unavailable Encounter Details Date Type Department Care Team Description 12/08/2009 Results Only [facility] Ori Rowan MD Laboratory Services - [address] [place] [address] 0 [facility] [place] [address] [phone] Social History Tobacco Use Types Packs/Day Years Used Date Never Assessed Sex Assigned at Date Recorded Not on file documented as of this encounter Plan of Treatment Not on filedocumented as of this encounter Procedures Procedure Name Priority Date/Time Associated Diagnosis Comme [facility] SURGICAL PATHOLOGY Routine 12/08/2009 0:00 EDT Re sults for this procedure are i n the results section. documented in this encounter Results SURGICAL PATHOLOGY (12/08/2009 0:00 EDT) Pathology Report: SURGICAL PATHOLOGY REPORT ? [facility] Reports generated via electr AtriCure interface contain original data; ? LAB however they are lacking the format of the original report. ? Caution should be taken when reading/interpreting unformatted reports. ? Name: ? HOSINGLOY, EVERT EL H ? Accession #: ? [id number] ? : ? 1955 (Age: 54) ??M ? Collec t Date: ? 12/08/2009 ? Location: ? [facility] ? R eceive Date: ? 12/08/2009 ? Provider: ORI WALKO MD ? Copy to: CHRISTIANA BHUPINDER MD ? Final Pathologic Diagnosis: ? A. ?Stomach, an trum, biopsies: ? 1. ?Oxyntic muc efrain with no pathologic findings. ? B. ?Stomach, estrellita dy, biopsies: ? 1. ?Oxyntic muc efrain with no pathologic findings. ? C. ?Esophagogas tric junction at 40 cm, biopsy: ? 1. ?Fibrinopuru lent exudate and granulation tissue consistent with ? ulcer. ? - PAS-amylase stain i s negative for fungal organisms. ? Document reviewed and electr onically signed by: ? GINA MOUNT MD ? Report ??Date: 12/13/2009 14 :20 ? By the signature above, the attending physician certifies that he/she has ? personally conducted a gross and/or microscopic examination of the described ? specimens and rendered or co nfirmed the above diagnosis. ? Specimen(s) Received: ? A. ?Bx gastric antrum ? B. ? Bx gastric body ? C. ? Bx EG junction at 4 0 cm ? Clinical History: ? GI bleed ? Gross Description: ? Received in [facility] fixative labelled Jovita, Amanuel and bx ? gastric antrum are two tse- pink irregular soft tissue fragments averaging 0.3 x 0.3 x 0.2 cm. ??The specimen s are entirely submitted as (A). ? Received in [facility]'s fixat kerry labelled Amanuel Hussein and bx gastric ?? body are two tse-pink irreg ular soft tissue fragments averaging 0.5 x 0.2 x 0.2 cm. ??The specimens are enti rely submitted as (B). ? Received in [facility]'s fixat kerry labelled Amanuel Hussein and bx EG ? junction at 40 cm is a tse- pink 0.2 x 0.2 x 0.2 cm soft tissue fragment. ??The ?? specimen is entirely submitt ed as (C). ??(Kirstin Grossman/pietro ? End of Report ? Specimen Performing Organization Address City/State/ZIP Code Phon e Number [facility] [address] [place] [address] SERVICES [facility] [address] [place] [address] documented in this encounter Visit Diagnoses Not on filedocumented in this encounter
--- OUTSIDE RECORDS SUMMARY | 2021-12-30 01:31 | XMS_ITS | Encounter Summary ---
:1955 Author Organization [facility] [place] [address] Care Team Providers Name Role Phone Clara Wood MD Primary Care Provider Encounter Details Date Type Department Care Team Description 06/08/2021 Notes Only Radiation Oncology at Fiordal[facility] Echever[facility] OFFICE OF CARE [address] [place] [address] [phone] Social History Tobacco Use Types Packs/Day Years [...] documented as of this encounter Progress Notes Fiordaliza Echeverria MSW - 06/08/2021 12:14 PM EDT Reason for Referral: Brief assessment of social and emotional needs. Met with pt after his sim todayto introduce myself and role of social science manager to assess/address barriers to getting to and through treatments; address support needs and connect with community services and resources as needed. Family/Social Supports: Pt identified his as his primary support. They have 5 daughter and nonelive local. They have 6 grandchildren and one on the way. Living Situation/Daily Activities/Transportation: Pt manages his daily chores and activities. He does not expect any issues with transportation. He is expecting 8 weeks of treatments. 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 He plans to continue to work through his treatments. He has [employer] for insurance. Advance Directives: Pt believes he completed his advance directive for his PCP. Requested a copy forhis record. Utilization of Community Resources: None at this time. Adjustment to Illness/Mental Health Concerns: Pt indicated he is coping well. He has support from his family. Identified Needs: Pt did not identify any specific needs at this time. Referrals: None at this time. Social Work Interventions: Brief assessment Supportive Counseling Plan: Informed pt of SYSTEMS SOFTWARE SPECIALIST availability and contact information. Will follow to assess/address psychosocial needs. MONE Khan, DIRECTOR OF OPERATIONS FOR THERAPY, OS[facility]-C Superintendent [facility] documented in this encounter Plan of Treatment Upcoming Encounters Date Type Specialty Care Team Description 01/19/2022 Office Visit Radiation Oncology Clover Covarrubias APRN [facility] RADIATION ONCOLO [place], [place] [address] (Wo rk) 12/04/2022 Hospital Encounter Gastroenterology Real Jones MD [facility] GASTROENTEROLOGY DEPT. [place], [place] [address] (Wo rk) Scheduled Procedures Name Priority Associated Diagnoses Date/Time COLONOSCOPY, DIAGNOSTIC 10 yr f/up documented as of this encounter Visit Diagnoses Not on filedocumented in this encounter Care Teams Mechanical Systems Design Engineer Relationship Specialty Start Date End Date Clara Wood MD PCP - General Family Medicine 01/26/17 Ebony ROSEN [address] [place] [address] documented as of this encounter
--- OUTSIDE RECORDS SUMMARY | 2021-12-30 01:31 | XMS_ITS | Encounter Summary ---
:1955 Author Organization [facility] [place] [address] Care Team Providers Name Role Phone Clara Wood MD Primary Care Provider Encounter Details Date Type Department Care Team Description 10/21/2020 TH Visit Radiation [facility] [address] [place] [address] RADIATION ONCOL OGY [address] [place], [place] [phone] (Wo rk) Social History Tobacco Use Types [...] encounter Progress Notes Michel Yip MD - 10/21/2020 2:30 PM EDT Radiation Oncology Telephone Note I called Victoriano on his cell phone today to review recent PSA results, which remains stable at 0.06 ng/dl. To review PSA trajectory is as follows 05/2020 - 0.05 06/2020 - 0.06 08/27/2020 - 0.06 10/14/2020 - 0.06 ng/dl We confirmed a plan to check again in 12 weeks. If PSA is stable will continue observation. If is seems to be rising and approaching the 0.10 level,will move towards salvage RT. He did not have any further questions and anticipates a scheduling call in the coming weeks. Time Attestation: I provided care to Victoriano, who verbally consented to this telephone visit and understands that this visit may be billed, similar to a clinic office visit. I spent at least 10 minutes in providing care to this patient today, 10/21/20 as reflected by the following activities: - [...] Visit Radiation Oncology Clover Covarrubias APRN [facility] RADIATION ONCOLO [place], [place] [address] (Wo rk) 12/04/2022 Hospital Encounter Gastroenterology Real Jones MD [facility] GASTROENTEROLOGY DEPT. [place], [place] [address] (Wo rk) Scheduled Procedures Name Priority Associated Diagnoses Date/Time COLONOSCOPY, DIAGNOSTIC 10 yr f/up documented as of this encounter Visit Diagnoses Diagnosis Prostate cancer Malignant neoplasm of prostate documented in this encounter Care Teams Swiss Machinist Relationship Specialty Start Date End Date Clara Wood MD PCP - General Family Medicine 01/26/17 Ebony ROSEN [address] [place] [address] documented as of this encounter
--- OUTSIDE RECORDS SUMMARY | 2021-12-30 01:31 | XMS_ITS | Encounter Summary ---
:1955 Author Organization [facility] [place] [address] Care Team Providers Name Role Phone Clara Wood MD Primary Care Provider Encounter Details Date Type Department Care Team Description 03/10/2021 TH Visit Radiation Oncology at Michel Yip P rostate cancer (TeleHealth) [facility] [address] [place] [address] RADIATION ONCOL OGY [address] [place], [place] [phone] (Wo rk) Social History Tobacco Use Types [...] encounter Progress Notes Michel Yip MD - 03/10/2021 3:30 PM EST Radiation Oncology Telephone Note I called Victoriano on his cell phone today to review recent PSA results. To review PSA trajectory is as follows 05/2020 - 0.05 06/2020 - 0.06 08/27/2020 - 0.06 10/14/2020 - 0.06 ng/dl 03/02/2021 - 0.07 ng/dl We confirmed a plan to check again in mid April. If PSA is stable will continue observation. [...] in providing care to this patient today, 03/10/21 as reflected by the following activities: - [...] Office Visit Radiation Oncology Clover Covarrubias APRN [facility] RADIATION ONCOLO [place], [place] [address] (Wo rk) 12/04/2022 Hospital Encounter Gastroenterology Real Jones MD [facility] GASTROENTEROLOGY DEPT. [place], [place] [address] (Wo rk) Scheduled Procedures Name Priority Associated Diagnoses Date/Time COLONOSCOPY, DIAGNOSTIC 10 yr f/up documented as of this encounter Visit Diagnoses Diagnosis Prostate cancer Malignant neoplasm of prostate documented in this encounter Care Teams Manager Med Surg Relationship Specialty Start Date End Date Clara Wood MD PCP - General Family Medicine 01/26/17 Ebony ROSEN [address] [place] [address] documented as of this encounter
--- OUTSIDE RECORDS SUMMARY | 2021-12-30 01:31 | XMS_ITS | Encounter Summary ---
:1955 Author Organization [facility] [place] [address] Care Team Providers Name Role Phone Clara Wood MD Primary Care Provider Reason for Referral Consultation (Routine) - Authorized Specialty Diagnoses / Procedures Referred By Contact Refer red To Contact Radiation Oncology Diagnoses Prostate cancer Michel Yip MD [facility] Rad Onc Office Procedures Simulation for Radiation Therapy Planning [address] [place] [address] [place] [id number] Referral ID Status Reason Start Date Expiration Visits Visits Date Requested Authorized [id number] Authorized Consult, 05/05/2021 05/05/2022 39 39 Test & Treat Encounter Details Date Type Department Care Team Description 05/05/2021 TH Visit Radiation Oncology at Michel Yip P rostate cancer (TeleHealth) [facility] [address] [place] [address] [place], [place] RADIATION ONCOL OGY [address] [place], [place] [phone] [id number] (Wo rk) Social History Tobacco Use Types [...] encounter Progress Notes Michel Yip MD - 05/05/2021 3:00 PM EST Radiation Oncology Telephone Visit ID Amanuel Lomax is a 66 y.o. with high risk prostate cancer (s/p RALP 11/2017 (pT3a, Gl 3+4, preop PSA 12, +focal SM Gl 3), rising PSA postop (trend below). I am calling him today to discuss recent PSA. Interval Subjective History: No changes to report Ongoing mild UI (uses a pad but does not soak through) Interval Objective History: 05/2020 - 0.05 ng/dl 06/2020 - 0.06 08/27/2020 - 0.06 10/14/2020 - 0.06 03/02/2021 - 0.07 04/28/2021 - 0.08 Assessment/Plan: We discussed that given his multiple risk factors and rising PSA, a course of salvage RT at this time would be indicated. The role of ADT is somewhat less clear, given the focal residual Gl 3 that is likely responsible for his PSA. However given the data of GETUG 16 and the SPPORT trial, I would recommend both pelvic and prostate bed RT, along with a short course of ADT. We reviewed logistics and toxicities of both salvage RT and ST ADT today on the phone. He wants to take some time to think about the latter, but in the meantime does with to pursue scheduling for RT. He has a trip planned over the next few days so would like to come for a return visit and simulation on 06/08. I will work with our scheduling staff to arrange accordingly. Phone Encounter Attestation: I provided care to Mr. Miguel Foss, who verbally consented to this telephone visit and understands that this visit may be billed, similar to a clinic office visit. Time Attestation: I certify spending at least 30 minutes in providing care to this patient today, 05/05/21 as reflected by the following activities: - review of his medical record in the chart, including interpretation of laboratory studies referenced above - discussion of the above with the patient as part of shared medical decision making - documenting the outcome of today's visit as above documented in this encounter Miscellaneous Notes Addendum Note - Michel Yip MD - 05/05/2021 3:00 PM EST Addended by: MICHEL YIP on: 05/05/2021 03:53 PM Modules accepted: Orders documented in this encounter Plan of Treatment Upcoming Encounters Date Type Specialty Care Team Description 01/19/2022 Office Visit Radiation Oncology Clover Covarrubias APRN [facility] RADIATION ONCOLO [place], [place] [address] (Wo rk) 12/04/2022 Hospital Encounter Gastroenterology Real Jones MD [facility] GASTROENTEROLOGY DEPT. [place], [place] [address] (Wo rk) Scheduled Orders Name Type Priority Associated Diagnoses Order S chedule Simulation for Radiation Procedures Routine Prostate cancer Ordered: 05/05/2021 Therapy Planning Scheduled Procedures Name Priority Associated Diagnoses Date/Time COLONOSCOPY, DIAGNOSTIC 10 yr f/up documented as of this encounter Visit Diagnoses Diagnosis Prostate cancer Malignant neoplasm of prostate documented in this encounter Care Teams Hi Lo Driver Relationship Specialty Start Date End Date Clara Wood MD PCP - General Family Medicine 01/26/17 Ebony [address]EN [address] [place] [address] documented as of this encounter
--- OUTSIDE RECORDS SUMMARY | 2021-12-30 01:31 | XMS_ITS | Encounter Summary ---
:1955 Author Organization [facility] [place] [address] Care Team Providers Name Role Phone Clara Wood MD Primary Care Provider Reason for Referral Consultation (Routine) - Specialty Diagnoses / Procedures Referred By Contact Refer red To Contact Radiation Oncology Diagnoses Prostate cancer Neto Yip MD [facility] Rad [facility] Office Procedures Simulation for Radiation Therapy Planning [address] [place] [address] [place] [id number] Referral ID Status Reason Start Date Expiration Date Visits V isits Requested Authorized [id number] Consult, 07/20/2020 10/19/2020 39 39 Test & Treat Reason for Visit Consultation (Routine) - Closed Specialty Diagnoses / Procedures Referred By Contact Refer red To Contact Radiation Oncology Diagnoses Malignant neoplasm of prostate Nabil Camargo [facility] Office [address] [place] [address] UROLOGY [address] [place] [address] Referral ID Status Reason Start Date Expiration Date Visits V isits Requested Authorized [id number] Closed Consult, 06/08/2020 06/08/2021 1 1 Test & Treat Encounter Details Date Type Department Care Team Description 07/02/2020 TH Visit Radiation Oncology at Neto Yip P [facility] cancer (TeleHealth) [facility] [address] [place] RADIATION ONCOL [place] [address] [place], [place] [phone] (Wo rk) Social History Tobacco Use Types [...] on file documented as of this encounter Patient Instructions Patient InstructionsNeto Yip MD - 07/02/2020 10:00 AM EDT Dear Victoriaon, Dr. Camargo asked for me to see you to discuss how radiation therapy can be used to treat your prostate cancer and this note is to recap our discussion regarding use of radiation treatments. As your radiation oncologist, I work closely with your other healthcare providers and most importantly, with you to make sure that the treatments we discuss and offer keep your personal preferences and goals in mind. We discussed the following next steps as part of your cancer evaluation and/or treatment: Reason for Radiation Treatments: Dr. Camargo asked you to see me to discuss post-operative radiationfor your prostate cancer for 3 major reasons: first, your PSA is now detectable and seems to be rising. The second is the fact that you had prostate cancer extending outside of your prostate. The thirdis that there was prostate cancer left behind by the surgery (a positive margin). We know from several studies that if we treat the area where the prostate used to be (the prostate bed), it reducesthe likelihood of prostate cancer coming back and increases the chance of prostate cancer cure. I believe this to be a firm recommendation. Timing of Radiation Treatments: There is some uncertainty about timing of when we start the radiation after surgery. Generally speaking, starting sooner is better than later and I recommend treating most patients when/if the PSA gets close to or crosses the 0.10 level. (Yours is currently much lower, at 0.05 and rising slowly). Hormone Deprivation Therapy: Two major studies have shown that use of anti- testosterone therapy in addition to radiation reduces the risk of prostate cancer coming back and may increase the likelihood of curing prostate cancer. This is because prostate cancer uses testosterone as a fuel for growth. The duration of anti-hormone therapy varies according to how it was studied, but I would recommend 4-6 months of treatment if you choose to pursue it. The medication we use is called Lupron, and it is generally given as a shot into your buttock either once a month, or every 3 months. There is also an option to just get a single 6 month shot. It is important to know however that you have features of a less aggressive cancer, and combined with a low PSA that is rising relatively slowly, I believe hormonal therapy could likely be safely avoided. Mapping scan to plan your radiation treatments: Your radiation therapy will involve using high energy radiation which kills cancer but also normal healthy tissues. In order to make sure the radiationgoes to the cancerous tissues and to also avoid radiating the normal tissues, we design radiation beams beams into special shapes which come from various different directions. Because no two people andno two cancers are completely identical, the radiation plan we create for you will be unique to you and your body. In order to figure out how many beams to use, how much radiation to give, which anglesthey should come from, and how they should be shaped, we have asked you to undergo a mapping scan here in our department known as a CT simulation, or CT sim, for short. This is essentially a CAT-scansimilar to scans which you may have received before, but slightly different in a few ways: First, itallows us to place you in the exact same position which you should expect to be placed during each of your radiation treatment sessions. Second, it lets us better understand where the radiation targetsand the normal tissues that we want to avoid exist, in relation to each other and the radiation beams. Following this scan, we then perform additional calculations and measurements to create the absolute best plan possible for you. Depending on the complexity of the plan, these processes can take fromjust few hours to several days, and for that we ask for your patience. If you have any questions about the planning process or your custom radiation plan, I would be more than happy to review the plan with you during your first week of treatment. I anticipate you will receive 39 treatments total, daily Sunday-Sunday for almost 8 weeks. Your start date and time will be provided once the simulation scan is completed. During your radiation treatments, you can expect to see me once per week so that I can examine you to make sure you are tolerating radiation treatments and so that we can monitor your response to treatment. If you need to see me any other day, one of my colleagues or I would be happy tosee you - just ask one of the radiation therapists or radiation nurses for assistance. Side Effects: We talked about the risks of radiation which primarily include irritative symptoms of the bowel and bladder, which may result in more frequent urination and bowel movements. The incontinence you are experiencing will stop improving once radiation starts (and this is why we wait until youhave fully recovered from surgery). Impotence that you are experiencing after surgery will not improve after from radiation. The main short term side effects of anti- hormone therapy are hot flashes, mood swings, fatigue, and decreased sexual interest / impotence, which improves once the therapy is discontinued. caretaker grounds risks include loss of muscle/strength, weight gain, and possibly osteoporosis. Please do not hesitate to call me at [phone] with any other questions or concerns you have. If I am not here, one of our radiation oncology nurses can assist you or help you get in touch with me. A Radiation Oncology doctor is also relationship counselor after our normal hours and on weekends for urgent questions or concerns related to radiation treatments that can not wait until normal business hours. To reach the on-call doctor after-hours, just call and have the oil plant operator page the Radiation Oncologist relationship counselor. And, as always, if you experience any life-threatening emergencies which any include the following, you need to seek emergency care immediately by calling 911: 1. Sudden and unexpected breathing difficulty without any exertion 2. Sudden onset of chest pain 3. Sudden onset of severe pain or uncontrolled pain 4. Sudden onset of severe weakness and/or unable to walk 5. Sudden new onset of a seizure 6. Fall resulting in injury 7. Uncontrollable bleeding Neto Aguero MD Billing Clinicianvoip engineer Radiation Oncology [facility] documented in this encounter Progress Notes Neto Yip MD - 07/02/2020 10:00 AM EDT Images from the original note were not included. Radiation Oncology Prostate Cancer Telephone Consult Note Neto Yip MD, MS [facility] [phone] TELE-CONSULTATION DESCRIPTION Based on the recommendations from the [facility] in the setting of the COVID19 pandemic, we are working to minimize patient exposure in our medical center. All patients not requiring urgent procedures or physical examination are eligible for either a postponement in visit, or as medically indicated, visits may be offered by telemedicine (either video or phone consultation). This consultation has been reviewed by appropriate clinical staff and has been deemed appropriate for a TeleConsultation at this time. Type of Visit: Phone (i.e. 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 PSA History: 07/2017 - 12.4 11/2017 - <<RALP>> 02/2018 - <0.01 05/2018 - <0.01 09/2018 - 0.02 11/2018 - 0.02 08/2019 - 0.03 02/2020 - 0.04 05/2020 - 0.05 Surgical Pathology Results: Procedure: ??Radical prostatectomy Tumor ?Histologic Type: ?? Acinar adenocarcinoma ?Histologic Grade ? Primary [place] Pattern: ?? Pattern 3 ? Secondary Sarah Pattern: ?? Pattern 4 ? Total Sarah Score: ?? 7 ? Grade Group: ??2 ? Percentage of Pattern 4: ?? 40% ?Tumor Extent ? Tumor Location: ?? Bilateral, all 4 quadrants, predominantly left anterior and posterior; apex involved by tumor ? Tumor Quantitation: ?? Estimated Percentage of Prostate Involved by Tumor - 27% ? Extraprostatic Extension (EPE): ?? Present, nonfocal ?Location of Extraprostatic Extension: Left posterior ? Urinary Bladder Neck Invasion: ?? Not identified ? Seminal Vesicle Invasion: ?? Not identified ?Accessory Findings ? Lymphovascular Invasion: ?? Not Identified ? Perineural Invasion: ?? Present Margins ?Margins: ??Involved by invasive carcinoma ? Margin Limitations: ?? Limited (< 3 mm) ? Focality: ??Unifocal ? Location of Positive Margin(s): ?? Anterior apex ? Margin Positivity in Area of Extraprostatic Extension (EPE): Not identified ? [place] Pattern at Positive Margin(s): Pattern 3 Lymph Nodes ?Number of Lymph Nodes Involved: ?? 0 ?Number of Lymph Nodes Examined: ?3 Pathologic Stage Classification (pTNM, AJCC 8th Edition) ?Primary Tumor (pT): ?? pT3a ?Regional Lymph Nodes (pN): ?? pN0 Prior consultations / recommendations: Dr Camargo 06/08/20 - Prostate cancer, pT3aN0, Grade Group 2, Margin limited (<3mm) anterior apex. Sarah 3 at margin s/p L>R NS RALP / PLND 12/07/2017 with low detectable PSA # refer to radiation oncology to discuss salvage RT # PSA in 4 months if they decide to continue surveillance Prior to starting today's phone consultation, I informed Amanuel that this does constitute a billable visit, and that [facility] would be submitting a claim to his insurer. He provided verbal consent to proceed with the consultation documented above. REVIEW OF SYSTEMS: On further questioning, he reports feeling well. He was not expecting our call today. He is currently using 1 pads / day for occasional small volume leakage. He is unable to have any erections since time of surgery. REVIEW OF SYSTEMS 07/02/2020 Constitutional None of the above Ear / nose / throat / mouth None of the above Eyes None of the above Respiratory None of the above Cardiovascular None of the above Gastrointestinal None of the above Skin, hair None of the above Musculoskeletal None of the above Neurological Numbness, tingling, None of the above Hematologic / Lymphatic None of the above Genitourinary - Other Symptoms left hand numbness, ? carpal tunnle A comprehensive 14 point review of systems was conducted with this patient and is otherwise negativeexcept as documented above. Baseline KATHERYN and IPSS are as below: Prostate Scores and Responses 07/02/2020 Confidence, level - past 6 months Very low Penetration - past 6 months No sexual activity Penetration, maintain - past 6 months Did not attempt intercourse Erection, maintain - past 6 months Did not attempt intercourse Sexual satisfaction - past 6 months Did not attempt intercourse Sexual Health in Men 1 (SEVERE ED) Incomplete emptying Not at all Frequency Not at all Intermittency Not at all Urgency Not at all Weak Stream Not at all Straining Not at all Nocturia 2 times Quality of life Mostly satisfied Total IPSS Score 2 ( MILD LUTS) EPIC-PC Responses 07/02/2020 Urinary Incontinence Symptom Score 3 Urinary Irritation/Obstructive Symptom Score 0 Bowel Symptom Score 0 Vitality/Hormonal Symptom Score 0 Overall Prostate Cancer QOL Score 3 Urinary function problem Very small problem Urinary control Occasional dribbling # of pads used per day One pad per Day Urinary dripping/leakage problem Very small problem Pain or burning with urination No problem Weak urine stream/incomplete bladder emptying No problem Need to urinate frequently No problem Rectal pain or urgency of bowel movements No problem Increased frequency of your bowel movements No problem Overall problems with your bowel movements No problem Bloody stools No problem Ability to reach orgasm Very poor to none Quality of your erections None at all Problem with sexual function or lack of it Small problem Hot flashes or breast tenderness/enlargement No problem Feeling depressed No problem Lack of energy No problem PAST MEDICAL HISTORY (per the medical record - not updated today) Past Medical History: Diagnosis Date ??? GERD (gastroesophageal reflux disease) ??? HTN (hypertension) ??? Prostate cancer 12/07/2017 Past Surgical History: Procedure Laterality Date ??? PRO COLONOSCOPY, DIAGNOSTIC 12/04/2012 COLONOSCOPY, DIAGNOSTIC performed by Real Jones MD at [facility] ENDOSCOPY ??? PRO LAP, PELVIC LYMPHADENECTOMY Bilateral 12/07/2017 LAPAROSCOPY,WITH BILATERAL TOTAL PELVIC LYMPHADENECTOMY, ROBOTIC (WRVU 12) performed by Nabil Camargo MD at [facility] MAIN OR ??? PRO LAP, PROSTATECTOMY, RADICAL, W/NERVE SPARE N/A 12/07/2017 LAPAROSCOPIC PROSTATECTOMY, ROBOTICS ASSISTED (WRVU 21.36) performed by Nabil Camargo MD at [facility] MAIN OR ??? PRO LAPAROSCOPY, SURG, REPAIR PARAESOPHAGEAL HERNIA, W/O IMPLANTATION OF MESH N/A 02/28/2017 ROBOT XI LAPAROSCOPIC PARAESOPHAGEAL HERNIA REPAIR W/FUNDOPLASTY,W/O MESH (WRVU 26.6) performed by Al Ortiz MD at [facility] MAIN OR ??? PRO UPPER GI ENDOSCOPY, BIOPSY 12/04/2012 UPPER GASTROINTESTINAL ENDOSCOPY,WITH BIOPSY SINGLE OR MULTIPLE performed by Real Jones MD at [facility] ENDOSCOPY ??? PRO UPPER GI ENDOSCOPY, BIOPSY N/A 11/29/2016 UPPER GASTROINTESTINAL ENDOSCOPY,WITH BIOPSY SINGLE OR MULTIPLE (WRVU 2.49) performed by Kaiser Doyle MD at [facility] ENDOSCOPY ??? PRO UPPER GI ENDOSCOPY, BIOPSY N/A 04/23/2018 UPPER GASTROINTESTINAL ENDOSCOPY,WITH BIOPSY SINGLE OR MULTIPLE (WRVU 2.49) performed by Kaiser Doyle MD at [facility] ENDOSCOPY ??? PRO UPPER GI ENDOSCOPY, DIAGNOSTIC N/A 02/28/2017 EGD, UPPER GI ENDOSCOPY performed by Al Ortiz MD at [facility] MAIN OR ??? PRO UPPER GI ENDOSCOPY, DIAGNOSTIC N/A 04/23/2018 EGD, UPPER GI ENDOSCOPY performed by Kaiser Doyle MD at [facility] ENDOSCOPY CONTRAINDICATIONS TO RADIATION THERAPY: None ?? Prior radiation therapy: No ?? Active Lupus: No ?? Systemic Scleroderma: No MEDICATIONS / ALLERGIES (per the medical record - not reviewed/updated with the patient): Medications 07/02/20 0938 Medication Sig Taking? chlorthalidone (Hygroten) 25 mg Tablet daily. Yes lisinopriL (Prinivil;Zestril) 40 mg Tablet Take 40 mg by mouth daily. Yes acetaminophen (TYLENOL) 325 mg Tablet Take 650 mg by mouth every 4 hours as needed for Pain. Yes sildenafiL (Revatio) 20 mg Tablet Take 1-5 tablets by mouth daily as needed. Take one tablet prior to sexual activity. Can increase by one tablet per day up to 5 tablets. Patient not taking: Reported on 07/02/2020 No Known Allergies TODAY'S PERFORMANCE STATUS per today's conversation: KPS Score ECOG Grade Definition X 90-100 [...] selfcare; totally confined to bed or chair ASSESSMENT / PLAN: Amanuel Lomax is a 65 y.o. man diagnosed with high-risk prostate cancer (pT3aN0, Gl 3+4, preop PSA 12) with rising postop PSA s/p RALP in 11/2017, most recently 0.05 in 05/2020. Postoperatively his PSA did albertina to zero. He has not technically met the definition of biochemical failure. Axumin scan was not discussed given the overall low PSA. Today we reviewed the risks, benefits, rationale, implications and alternatives of the various management options. With regard to his radiation option, I reviewed salvage external beam therapy vs closeobservation. He understands that treatment is offered based on his multiple high risk features, notably detectable PSA, T3 disease and positive surgical margins. Randomized data suggests a survival benefit to postoperative radiotherapy in these situations. Arguing against immediate RT at least are hislow-grade disease at the margins, low overall PSA and slow doubling time (>1yr). In the short term, I reviewed the common irritative bowel and bladder side effects associated with all forms of radiotherapy. In the social worker assistant, I explained there is an approximately 2% chance of serious bladder or rectal toxicity as well as a very low risk of inducing a secondary malignancy. I also reviewed that with radiation there are few reliable salvage curative options. I also reviewed the role of short-term ADT (6 months based on RTOG 0534 and GETUG-16). The caveat isthat with his low PSA he would not have been eligible for those trials, so it is difficult to extrapolate results. Further, it was only [place] 3 disease noted at the surgical margin, for which we would also not routinely offer ADT in the definitive setting. So, if he should he decline ADT I feel thatwould be a reasonable decision. I reviewed side effects associated with this treatment. He understands there is a survival benefit when ADT is added to radiotherapy, and that side effects can include diminished libido, hot flashes, weight gain, mood swings, depression and/or osteoporosis. We reviewed clinical trials for which he may be eligible. Given low PSA he is not eligible for any trials. On balance, Eleuterio wishes to proceed with early salvage RT. He remains undecided about pursuing ADT, and we will confirm his decision making regarding ADT at time of sim. Again, while a consideration I would not strongly recommend ADT for Victoriano given his multiple favorable risk features (eg. Low PSA, favorable histology, slow doubling time, limited extent of positive margin). Follow-up appointments will be made accordingly. All of Victoriano's questions were answered to his satisfaction, and we have provided him with our contact information should any further questions or concerns arise. SUMMARY OF PLAN / RECOMMENDATION: 1. Intent of therapy: Curative (Early Salvage) 2. Clinical Trial Availability: None 3. RV for consent/sim in 1-2 weeks 4. ADT TBD TIME ATTESTATION: I certify spending at least 60 minutes in providing care to this patient today, 07/02/20 as reflected by the following activities: - review of his medical record in the chart, including interpretation of imaging, laboratory and pathologic studies referenced above - discussion of the above with the patient as part of shared medical decision making - documenting the outcome of today's visit as above NETO YIP MD, MS Verónica Hanna RN - 07/02/2020 10:00 AM EDT Radiation Oncology Nurse Telephone Note [place], [place] RADIATION ONCOLOGY NURSING INITIAL NURSING ASSESSMENT IDENTIFICATION: Amanuel Lomax is a 65 y.o. year-old male with prostate ca REVIEW OF SYSTEMS: Review of Systems - Oncology . REVIEW OF SYSTEMS 07/02/2020 Constitutional None of the above Ear / nose / throat / mouth None of the above Eyes None of the above Respiratory None of the above Cardiovascular None of the above Gastrointestinal None of the above Skin, hair None of the above Musculoskeletal None of the above Neurological Numbness, tingling, None of the above Hematologic / Lymphatic None of the above Genitourinary - Other Symptoms left hand numbness, ? carpal tunnle IN THE PAST 12 MONTHS HAVE YOU: Fallen more than one time? No Injured yourself as result of the fall? No Experienced difficulty with walking/problems with balance? No Do you use any assistive devices? No Any history of collagen vascular diseases:No Any Implanted Devices/Hardware: No If yes please put alert in ARIA patient summary Prior Radiotherapy: No Prior Chemotherapy: No Prior Hormone Therapy: No Other: Patient denies history of Scleroderma and Lupus LEARNING ASSESSMENT REVIEWED: Yes ADVANCED DIRECTIVE: Not discussed today. PAIN ASSESSMENT: [0] out of 10 *eD-H Adult PCS Flow Sheet if 4 or above SOCIAL ASSESSMENT: See EDH social assessment information entered. 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 RADIATION SPECIFIC TEACHING:Will provide the following information on day [facility] Radiation Therapy and You Site specific teaching :pelvis Other: PLAN: Per Dr Yip documented in this encounter Plan of Treatment Upcoming Encounters Date Type Specialty Care Team Description 01/19/2022 Office Visit Radiation Oncology Clover Covarrubias APRN [facility] RADIATION ONCJENNIFER GY [place], [place] [address] (Wo rk) 12/04/2022 Hospital Encounter Gastroenterology Real Jones MD [facility] GASTROENTEROLOGY DEPT. [place], [place] [address] (Wo rk) Scheduled Orders Name Type Priority Associated Diagnoses Order S chedule Simulation for Radiation Procedures Routine Prostate cancer Ordered: 07/02/2020 Therapy Planning Scheduled Procedures Name Priority Associated Diagnoses Date/Time COLONOSCOPY, DIAGNOSTIC 10 yr f/up documented as of this encounter Visit Diagnoses Diagnosis Prostate cancer Malignant neoplasm of prostate documented in this encounter Care Teams Feed Elevator Worker Relationship Specialty Start Date End Date Clara Wood MD PCP - General Family Medicine 01/26/17 [address] [place] [address] documented as of this encounter
--- OUTSIDE RECORDS SUMMARY | 2021-12-30 01:31 | XMS_ITS | Encounter Summary ---
:1955 Author Organization [facility] [place] [address] Care Team Providers Name Role Phone Clara Wood MD Primary Care Provider Reason for Referral Consultation (Routine) - Closed Specialty Diagnoses / Procedures Referred By Contact Refer red To Contact Radiation Oncology Diagnoses Malignant neoplasm of prostate Nabil [facility]argo [facility] Rad [facility] Office [address] [place] [address] UROLOGY [id number] [place] [address] Referral ID Status Reason Start Date Expiration Date Visits V isits Requested Authorized [id number] Closed Consult, 06/08/2020 06/08/2021 1 1 Test & Treat Encounter Details Date Type Department Care Team Description 06/08/2020 [place] Visit [place] [facility] [place]abil [facility] Malignant neoplasm of (TeleHealth) [facility] [place] [address] UROLOGY [phone] [place], [place] [address] Social History Tobacco Use Types Packs/Day Years [...] documented as of this encounter Progress Notes Nabil Camargo MD - 06/08/2020 10:00 AM EDT Urologic Oncology Clinic Note Date of Service: June 08, 2020 Name: Amanuel Lomax : 1955 CC: Prostate cancer HPI: Amanuel Lomax is a 65 y.o. old male with a history of intermediate risk prostate cancerstatus post L>R nerve sparing robotic-assisted laparoscopic prostatectomy with bilateral PLND on 12/07/2017. Final pathology: pT3aN0, Grade Group 2, Margin + limited (<3mm) anterior apex. Filer 3 at margin. Overall, he is doing quite well. Good pain control. No chest pain, palpitations, SOB. No nausea / vomiting. Moving bowels. No fevers / chills. PRIMITIVO essentially resolved. 1PPD and not often wet. UUI resolved. Tried Viagra (20mg) and did not do much. Past Medical History: Diagnosis Date ??? GERD (gastroesophageal reflux disease) ??? Prostate cancer 12/07/2017 Social History Socioeconomic History ??? Marital status: Spouse name: Not on file ??? Number of children: Not on file ??? Years of education: Not on file ??? Highest education level: Not on file Occupational History ??? Not on file Tobacco Use ??? Smoking status: Former Smoker Packs/day: 1.50 Years: 20.00 Pack years: 30.00 Types: Cigarettes Quit date: 1981 Years since quittin.2 ??? Smokeless tobacco: Never Used Substance and Sexual Activity ??? Alcohol use: Yes Comment: rarely ??? Drug use: No ??? Sexual activity: Not on file Other Topics Concern ??? Not on file Social History Narrative ??? Not on file Social Determinants of Health Financial Resource Strain: ??? Difficulty of Paying Living Expenses: Food Insecurity: ??? Worried About Running Out of Food in the Last Year: ??? Ran Out of Food in the Last Year: Transportation Needs: ??? Lack of Transportation (Medical): ??? Lack of Transportation (Non-Medical): Physical Activity: ??? Days of Exercise per Week: ??? Minutes of Exercise per Session: Stress: ??? Feeling of Stress : Social Connections: ??? Frequency of Communication with Friends and Family: ??? Frequency of Social Gatherings with Friends and Family: ??? Attends Mosque Services: ??? Active Member of Clubs or Organizations: ??? Attends Club or Organization Meetings: ??? Marital Status: Intimate Partner Violence: ??? Fear of Current or Ex-Partner: ??? Emotionally Abused: ??? Physically Abused: ??? Sexually Abused: Physical Exam: Not done (telehealth) Vital Signs: There were no vitals taken for this visit. PSA Since surgery 02/2018 - <0.01 05/2018 - <0.01 09/2018 - 0.02 11/2018 - 0.02 07/2019 - <0.1 (locally) 08/2019 - 0.03 02/2020 - 0.04 (locally) 05/2020 - 0.05 Assessment: # Prostate cancer, pT3aN0, Grade Group 2, Margin limited (<3mm) anterior apex. Filer 3 at margin s/p L>R NS RALP / PLND 12/07/2017 with low detectable PSA Plan: # refer to radiation oncology to discuss salvage RT # PSA in 4 months if they decide to continue surveillance Patient verbally consents to this telephone visit and understands that this visit may be billed, similar to a clinic office visit. I provided care to the patient today via telephone call. The total time associated with this visit was 20 minutes. documented in this encounter Plan of Treatment Upcoming Encounters Date Type Specialty Care Team Description 01/19/2022 Office Visit Radiation Oncology Clover Covarrubias, INDUSTRIAL PHARMACIST [facility] [place], [place] [address] (Wo rk) 12/04/2022 Hospital Encounter Gastroenterology Real Jones MD [facility] GASTROENTEROLOGY DEPT. [place], [place] [address] (Wo rk) Scheduled Procedures Name Priority Associated Diagnoses Date/Time COLONOSCOPY, DIAGNOSTIC 10 yr f/up Scheduled Referrals Name Type Priority Associated Diagnoses Order S chedule Referral to Outpatient Referral Routine Malignant neoplasm Or dered: Radiation Oncology of prostate 1 documented as of this encounter Visit Diagnoses Diagnosis Malignant neoplasm of prostate documented in this encounter Care Teams Sales Analyst Relationship Specialty Start Date End Date Clara Wood MD PCP - General Family Medicine 01/26/17 [address] [place] [address] documented as of this encounter
--- OUTSIDE RECORDS SUMMARY | 2021-12-30 01:32 | XMS_ITS | Encounter Summary ---
:1955 Author Organization [facility] [address] Care Team Providers Name Role Phone Clara Wood MD Primary Care Provider Encounter Details Date Type Department Care Team Description 02/25/2018 Office Visit Urology at [facility] [place] Nabil Camargo, Prostate cancer [facility] [place] [address] [facility] [phone] UROLOGY [place] [address] (Wo rk) Social History Tobacco Use Types [...] Sign Reading Time Taken Comments Blood Pressure 146/97 02/25/2018 10:04 AM EST Pulse 67 02/25/2018 10:04 AM EST Temperature - - Respiratory Rate - - Oxygen Saturation 97% 02/25/2018 10:04 AM EST Inhaled Oxygen Concentration - - Weight - - Height - - Body Mass Index - - documented in this encounter Progress Notes Nabil Camargo MD - 02/25/2018 10:20 AM EST Urologic Oncology Clinic Note Date of Service: February 25, 2018 Name: Amanuel Hussein : 1955 CC: Prostate cancer HPI: Amanuel Hussein is a 62 y.o. old male with a history of intermediate risk prostate cancer status post L>R nerve sparing robotic-assisted laparoscopic prostatectomy with bilateral PLND on 12/07/2017. Final pathology: pT3aN0, Grade Group 2, Margin + limited (<3mm) anterior apex. Sarah 3 at margin. Overall, he is doing quite well. Good pain control. No chest pain, palpitations, SOB. No nausea / vomiting. Moving bowels. No fevers / chills. Some PRIMITIVO persisting. 3 Pads / day depending on activity. He also reports some bothersome urge symptoms, every few hours. No erections yet. Past Medical History: Diagnosis Date ??? GERD (gastroesophageal reflux disease) ??? Prostate cancer 12/07/2017 Social History Socioeconomic History ??? Marital status: Spouse name: Not on file ??? Number of children: Not on file ??? Years of education: Not on file ??? Highest education level: Not on file Social Needs ??? Financial resource strain: Not on file ??? Food insecurity - worry: Not on file ??? Food insecurity - inability: Not on file ??? Transportation needs - medical: Not on file ??? Transportation needs - non-medical: Not on file Occupational History ??? Not on file Tobacco Use ??? Smoking status: Former Smoker Packs/day: 1.50 Years: 20.00 Pack years: 30.00 Types: Cigarettes Last attempt to quit: 1982 Years since quittin.9 ??? Smokeless tobacco: Never Used Substance and Sexual Activity ??? Alcohol use: Yes Comment: rarely ??? Drug use: No ??? Sexual activity: Not on file Other Topics Concern ??? Not on file Social History Narrative ??? Not on file Physical Exam: Vital Signs: BP (!) 146/97 Pulse 67 SpO2 97% General: No acute distress Lungs: Unlabored breathing Abdomen: Soft, nontender, nondistended; surgical incisions normal appearing Back: No spinal or CVA tenderness Extremities: Without edema PSA <0.01 Assessment: # Prostate cancer, pT3aN0, Grade Group 2, Margin limited (<3mm) anterior apex. Sarah 3 at margin s/p L>R NS RALP / PLND 12/07/2017 Plan: # q3 mo PSA x year 1, then q6 mo x year 2, then annually # Reinforced Kegel exercises, he will call if interested in addressing urge in the interim 20 minutes spent in counseling and coordination of care documented in this encounter Plan of Treatment Upcoming Encounters Date Type Specialty Care Team Description 01/19/2022 Office Visit Radiation Oncology Clover Covarrubias APRN [facility] RADIATION [place], [place] [address] (Wo rk) 12/04/2022 Hospital Encounter Gastroenterology Real Jones MD [facility] GASTROENTEROLOGY DEPT. [place], [place] [address] (Wo rk) Scheduled Procedures Name Priority Associated Diagnoses Date/Time COLONOSCOPY, DIAGNOSTIC 10 yr f/up documented as of this encounter Results PSA (05/30/2018 1:24 PM EST) P athologist Signature PSA Total <0.01 0.00 - [facility] (Ultrasensitiv 4.00 ng/mL [facility] LABORATORY Specimen Anatomical Collection Method Collection Time Receive d Time (Source) Location / / Volume Laterality Blood specimen 05/30/2018 1:24 PM 019 1:34 (specimen) EST PM EST Resulting Agency Comment Spec In Lab Nabil Camargo MD CHEMISTRY ORDERABLES Performing Organization Address City/State/[place] [address] documented in this encounter Visit Diagnoses Diagnosis Prostate cancer Malignant neoplasm of prostate documented in this encounter Care Teams Sportspersons Relationship Specialty Start Date End Date Clara Wood MD PCP - General Family Medicine 01/26/17 [address] [place] [address] documented as of this encounter
--- OUTSIDE RECORDS SUMMARY | 2021-12-30 01:32 | XMS_ITS | Encounter Summary ---
:1955 [place] [address] Care Team Providers Name Role Phone Clara Wood MD Primary Care Provider Reason for Visit Auth/Cert Specialty Diagnoses / Procedures Referred By Contact Refer red To Contact Diagnoses Prostate Cancer Procedures PRO LAP, PROSTATECTOMY, RADICAL, W/NERVE SPARE LAPAROSCOPIC PROSTATECTOMY, ROBOTICS ASSISTED (WRVU 21.36) Referral ID Status Reason Start Date Expiration Date Visits Requ ested Visits Authorized [id number] 1 1 Encounter Details Date Type Department Care Team Description 12/07/2017 - Hospital Encounter 2 Contreras Camargo, Pre-opera tive exam; 12/09/2017 [facility] Amber Roman Pro[facility] cancer Hospital [facility] [address] [place] [phone] Social History Tobacco Use Types Packs/Day Years [...] Sign Reading Time Taken Comments Blood Pressure 149/87 12/09/2017 11:53 AM EDT Pulse 50 12/09/2017 11:53 AM EDT Temperature 36.8 ??C (98.2 ??F) 12/09/2017 11:53 AM EDT Respiratory Rate 16 12/09/2017 11:53 AM EDT Oxygen Saturation 98% 12/09/2017 11:53 AM EDT Inhaled Oxygen Concentration - - Weight 87 kg (191 lb 12.8 oz) 12/07/2017 7:14 AM EDT Height 175.3 cm (5' 9) 12/07/2017 7:14 AM EDT Body Mass Index 28.32 12/07/2017 7:14 AM EDT documented in this encounter Discharge Summaries Fabián Moore MD - 12/09/2017 2:40 PM EDT UROLOGY SERVICE Inpatient - Discharge Summary Patient Name: Amanuel Hussein Patient Age: 62 y.o. : 1955 Attending Physician: Nabil Camargo MD Date of Admission: 12/07/2017 Date of Discharge: 12/09/17 Diagnosis: Active Hospital Problems Diagnosis ??? Prostate cancer Resolved Hospital Problems Diagnosis Date Resolved No resolved problems to display. Operations/Major Procedures: Operations: 12/07/2017 Surgeon(s) and Role: * Nabil Camargo MD - Primary * Reji Feng MD - Resident-Surgeon Chief: Procedure(s): LAPAROSCOPIC PROSTATECTOMY, ROBOTICS ASSISTED (WRVU 21.36) MODIFIER RIYA ZHENG (from Dr. Camargo clinic note from 12/07/2017): Amanuel Hussein is a 62 y.o. 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 He was found to have an elevated PSA to 12 and underwent TRUS/PNBx on 08/06/2017 which found [place] 4+4 prostate cancer as below: ?? DIAGNOSIS CONSULTATION CASE Outside slide(s) labeled [id number], collection date 08/06/2017. A - Prostate, base right lateral, needle core biopsy: Benign prostatic tissue. B - Prostate, base right medial, needle core biopsy: Benign prostatic tissue. C - Prostate, mid right lateral, needle core biopsy: Benign prostatic tissue. D - Prostate, mid right medial, needle core biopsy: Benign prostatic tissue. E - Prostate, apex right lateral, needle core biopsy: Benign prostatic tissue. F - Prostate, apex right medial, needle core biopsy: Benign prostatic tissue. G - Prostate, base left lateral, needle core biopsy: Prostatic adenocarcinoma, Grade Group 3, Sarah score 4+3, involving 70% of fragmented core (Sarah pattern 4 represents 60% of tumor). Perineural invasion is present. Suspicious for extraprostatic extension. H - Prostate, base left medial, needle core biopsy: Prostatic adenocarcinoma, Grade Group 3, Sarah score 4+3, involving 95% of a single core (Sarah pattern 4 represents 60% of tumor). Perineural invasion is present. I - Prostate, mid left lateral, needle core biopsy: Prostatic adenocarcinoma, Grade Group 3, Sarah score 4+3, involving 90% of a single core (Sarah pattern 4 represents 60% of tumor). Perineural invasion is present. J - Prostate, mid left medial, needle core biopsy: Prostatic adenocarcinoma, Grade Group 3, [place] score 4+3, involving 60% of a single core ([place] pattern 4 represents 70% of tumor). Perineural invasion is present. K - Prostate, apex left lateral, needle core biopsy: Prostatic adenocarcinoma, Grade Group 3, Sarah score 4+3, involving 100% of a single core ([place] pattern 4 represents 70% of tumor). Perineural invasion is present. L - Prostate, apex left medial, needle core biopsy: Prostatic adenocarcinoma, Grade Group 3, Sarah score 4+3, involving 100% of a single core ([place] pattern 4 represents 60% of tumor). Perineural invasion is present. ?? He is here to discuss treatment options. He has no family history of prostate cancer. ?? Imagin09/04/2017 - mpMRI, no obvious PARAM / SVI / LAD, 33g prostate 09/04/2017 - Bone scan negative ?? Prostate IPSS and KATHERYN(Pt Entered): last 5 values ?? Prostate Today's Scores 10/18/2017 Sexual Health Inventory for Men 24 International Prostate Symptom Score 1 ( Mild LUTS) ? The patient's genitourinary history is otherwise negative for urologic issues, including recurrent UTI, nephrolithiasis and other urologic malignancies. The patient denies any associated changes in fevers, chills, nausea, vomiting, bowel or bladder symptoms, diarrhea or constipation. ?? Prostate IPSS and KATHERYN(Pt Entered): last 5 values ?? Prostate Today's Scores 10/18/2017 International Prostate Symptom Score 1 ( Mild LUTS) ? Appetite is good weight is stable. There is no bone pain. Hospital Course: Amanuel Hussein was admitted to [facility] on 12/07/2017 through the Same Day Surgery program after undergoing the procedure noted above. The intra-operative findings were: Findings: 1. Bilateral nerve spare, R>L 2. B/l pelvic lymphadenectomy 3. Watertight anastomosis to 180cc 4. Pelvic drain placed After adequate recovery from anesthesia in the PACU, the patient was transferred to the floor in stable condition. Amanuel Hussein's pain was adequately controlled, he was maintaining adequate oxygen saturation on room air, and was hemodynamically stable. He was tolerating a diet without abdominal complaints and voiding adequately. WBC and Hgb were stable. He was ambulating appropriately. Amanuel Hussein was evaluated by the Urology team and deemed medically stable for discharge on POD #2, 12/09/17 . Updated Allergies/ADRs: No Known Allergies Pending Lab Data at Discharge: surgical pathology Condition at Discharge: Stable Important Studies and Lab Data: Labs: Recent Labs 12/09/17 0216 12/08/17 0422 WBC 7.0 7.5 HGB 12.6* 12.4* HCT 36.7* 35.8* PLATELET 179 179 Recent Labs 12/09/17 0216 12/08/17 0422 NA 142 138 K 4.2 4.3 CL 108* 104 CO2 25 22 BUN 19 19 CREATININE 0.98 1.09 GLUCOSE 119 126 CALCIUM 8.0* 7.7* Studies: KRISSY Creatinine - 1.0 Discharge Examination: Last value Range last 12 hrs Temperature Temp: 36.8 ??C (98.2 ??F) Temp: [36.8 ??C (98.2 ??F)-36.9 ??C (98.4 ??F)] Heart Rate Heart Rate: 50 Heart Rate: [50-57] Blood Pressure BP: 149/87 BP: (141-149)/(84-92) Respiratory Rate Resp: 16 Resp: [16] SpO2 SpO2: 98 % SpO2: [97 %-98 %] I/Os: I/O last 3 completed shifts: In: 5190 [P.O.:1120; I.V.:4070] Out: 3890 [Urine:3725; Other:165] I/O this shift: In: - Out: 3750 [Urine:3750] Physical Exam: General: NAD, resting comfortably, pleasant, conversant HEENT: PERRL, anicteric sclerae CVS: RRR Pulm: CTAB Abd: soft, nontender, nondistended; incisions CDI. : Wade light pink urine Skin: warm, dry Ext: no c/c/e, cap refill <2sec Neuro: CN 2-12 grossly intact, nonfocal,moving all four extremities spontaneously Discharge to: Home Discharge Conditions/Prognosis: Stable Discharge Medications: The following medications have been prescribed for you. If you notice any adverse reactions to your medications, please contact your primary care physician immediately or go to the nearest Emergency Department. Your Medications Notice You have not been prescribed any medications. Follow-up Care & Plans: For questions, orders or appointments related to your continuing care after your discharge, you or your provider should contact the physician that managed that part of your care. Urology Clinic: [phone] PCP: Clara Wood MD, . Please follow-up with your PCP in 1-2 weeks or sooner as needed. Issues to be followed-up with your PCP: 1. Scheduled Appointments: The following appointments have been scheduled on your behalf: Future Appointments and Orders Future Appointments Provider Department Dept Phone 12/17/2017 9:40 AM Nabil Camargo MD [facility] [place] [phone] 12/17/2017 10:20 AM Nabil Camargo MD [facility] [place] [phone] 12/17/2017 10:20 AM UROLOGY, NURSE [facility] [place] [phone] 03/15/2018 9:15 AM Al Ortiz MD [facility] [place] [phone] Outpatient Services/Studies: No discharge procedures on file. Instructions Given to Patient at Discharge: Patient Instructions DISCHARGE INSTRUCTIONS CALL YOUR PHYSICIAN IF: ?? You have a fever greater than 101 degrees F within one month of your surgery. ?? You have diarrhea or vomiting for more than 24 hours, or stop having bowel movements or passing gas. ?? You have worsening pain, not controlled with your pain medication. ?? You develop redness, swelling, or new drainage from your wound. ?? You notice decreased urine output, or the catheter stops draining. ?? You have any other acute change in your health status. MEDICATIONS You may take acetaminophen (Tylenol) for pain. You can take up to 1000mg every 6 hours. Do not exceed 4000mg per day. DRIVING RESTRICTIONS Do not operate a vehicle if you are too sore from surgery to enter or exit your vehicle comfortably,or if you are too sore to easily check your blind spot. No driving while using prescription pain medications. ACTIVITIES No heavy lifting. You may lift what is comfortable to lift with one arm. Nothing greater than 10 pounds (e.g., a full gallon jug) until re-evaluated by your physician. Discuss return to work or school with your physician. Take several slow, short walks each day for the first two weeks, and gradually increase your distance. Exercise will assist in your recovery. DIET Eat a well-balanced diet. Fresh fruits, vegetables and fiber-containing foods are recommended. This will assist in wound healing. WOUND CARE You can shower as usual and wash the incision area gently. Pat the incision dry with a clean, dry towel. Do not soak the wound (avoid spas, pools, and bathtubs) until it is fully healed. Do not use creams, oils, or ointments on the wound. Keep the wound open to air if it is not draining. Do not removesutures or santi. WADE CATHETER CARE Please keep the Wade catheter in place and attached to the large drainage bag or the small leg bag.Do not remove the catheter. If the catheter becomes dislodged, please call our office. COMFORT Some incision soreness can be expected. Take your pain medication as needed and prescribed. Slowly decrease your use of pain medication as pain lessens. CONTACT INFORMATION To contact your provider or change your appointment, please call the Urology clinic at during business hours or during off-hours. FOLLOW-UP APPOINTMENT Future Appointments and Orders Future Appointments Provider Department Dept Phone 12/17/2017 9:40 AM Nabil Camargo MD [facility] [place] [phone] 12/17/2017 10:20 AM Nabil Camargo MD [facility] [place] [phone] 12/17/2017 10:20 AM UROLOGY, NURSE [facility] [place] [phone] 03/15/2018 9:15 AM Al Ortiz MD [facility] [place] [phone] General Instructions None Call your doctor if: Please call your doctor immediately or go to an Emergency Department if you notice worsening pain not controlled by pain medications, uncontrolled headache, vision changes, chest pain, difficulty breathing, persistent nausea and vomiting, new redness or swelling in any extremities, new onset weakness or changes in sensation, or for any fevers greater than 101.3 F. Your care was managed by the Urologic Surgery Team at [facility]. If you have any questions or concerns, please feel free to contact us. Provider Contact Information: Urology Clinic: [phone] [facility] (after business hours): CC: Clara Wood MD Signed: Fabián Moore MD 12/09/2017 Associated attestation - Isidro Gutierrez III, MD - 12/11/2017 10:48 AM EDT I have seen the patient and reviewed the resident's above history and I agree with the details as written. The assessment and plan were formulated in discussion with me and I agree with them as documented. Isidro Gutierrez III, MD metal miner and Pediatrics [facility] [employer] Senior Staff Pediatric Urologist [facility] documented in this encounter Discharge Instructions Patient InstructionsDTenzin diezin, MD - 12/07/2017 10:02 AM EDT DISCHARGE INSTRUCTIONS CALL YOUR PHYSICIAN IF: ?? You have a fever greater than 101 degrees F within one month of your surgery. ?? You have diarrhea or vomiting for more than 24 hours, or stop having bowel movements or passing gas. ?? You have worsening pain, not controlled with your pain medication. ?? You develop redness, swelling, or new drainage from your wound. ?? You notice decreased urine output, or the catheter stops draining. ?? You have any other acute change in your health status. MEDICATIONS You may take acetaminophen (Tylenol) for pain. You can take up to 1000mg every 6 hours. Do not exceed 4000mg per day. DRIVING RESTRICTIONS Do not operate a vehicle if you are too sore from surgery to enter or exit your vehicle comfortably,or if you are too sore to easily check your blind spot. No driving while using prescription pain medications. ACTIVITIES No heavy lifting. You may lift what is comfortable to lift with one arm. Nothing greater than 10 pounds (e.g., a full gallon jug) until re-evaluated by your physician. Discuss return to work or school with your physician. Take several slow, short walks each day for the first two weeks, and gradually increase your distance. Exercise will assist in your recovery. DIET Eat a well-balanced diet. Fresh fruits, vegetables and fiber-containing foods are recommended. This will assist in wound healing. WOUND CARE You can shower as usual and wash the incision area gently. Pat the incision dry with a clean, dry towel. Do not soak the wound (avoid spas, pools, and bathtubs) until it is fully healed. Do not use creams, oils, or ointments on the wound. Keep the wound open to air if it is not draining. Do not removesutures or santi. WADE CATHETER CARE Please keep the Wade catheter in place and attached to the large drainage bag or the small leg bag.Do not remove the catheter. If the catheter becomes dislodged, please call our office. COMFORT Some incision soreness can be expected. Take your pain medication as needed and prescribed. Slowly decrease your use of pain medication as pain lessens. CONTACT INFORMATION To contact your provider or change your appointment, please call the Urology clinic at during business hours or during off-hours. FOLLOW-UP APPOINTMENT Future Appointments and Orders Future Appointments Provider Department Dept Phone 12/17/2017 9:40 AM Nabil Camargo MD [facility] [place] [phone] 12/17/2017 10:20 AM Nabil Camargo MD [facility] [place] [phone] 12/17/2017 10:20 AM UROLOGY, NURSE [facility] [place] [phone] 03/15/2018 9:15 AM Al Ortiz MD [facility] [place] [phone] documented in this encounter Progress Notes Vale Ribeiro RN - 12/09/2017 2:55 PM EDT Patient Name: Amaneul Hussein Patient Age: 62 y.o. Birthdate: 1955 Admit date: 12/07/2017 Attending Physician: Nabil Camargo MD Patient watched wade catheter video and provided with wade care supplies. Reviewed discharge and allowed for questions. Rebecca Avitia RN - 12/08/2017 4:26 PM EDT Report received from [place] at 1600. Pt received from [facility] at 1615 to 210-B. [facility] V[facility]. at bedside. Fabián Moore MD - 12/07/2017 7:51 PM EDT RESIDENT INPATIENT PROGRESS NOTE ID: Amanuel Hussein is a 62 yo M with history of unfavorable intermediate risk prostate cancer now s/p RALP. 24HR EVENTS/SUBJECTIVE: ?? Pain well controlled ?? Ambulating ?? No F or BM yet ?? no complaints this AM, denies n/v/cp/sob OBJECTIVE: Last value Range last 24 hrs Temperature Temp: 36.9 ??C (98.5 ??F) Temp: [36.5 ??C (97.7 ??F)-36.9 ??C (98.5 ??F)] Heart Rate Heart Rate: 80 Heart Rate: [56-84] Blood Pressure BP: 128/80 BP: (128-159)/(69-92) Respiratory Rate Resp: 16 Resp: [12-20] SpO2 SpO2: 96 % SpO2: [96 %-100 %] Art BP BP (Arterial Line): -- I/O last 3 completed shifts: In: - Out: 575 [Urine:510; Other:15; Blood:50] Physical Exam: General: NAD, resting comfortably, pleasant, conversant HEENT: PERRL, anicteric sclerae CVS: RRR Pulm: CTAB Abd: soft, nontender, nondistended; incisions CDI. KRISSY Drain with s/s output. : Wade light pink urine Skin: warm, dry Ext: no c/c/e, cap refill <2sec Neuro: CN 2-12 grossly intact, nonfocal,moving all four extremities spontaneously LABS: CBC No results for input(s): WBC, HGB, HCT, PLATELET, PT, INR, PTT in the last 72 hours. BMP No results for input(s): NA, K, CL, CO2, BUN, CREATININE, GLUCOSE, CALCIUM, MAGNESIUM, PHOS in the last 72 hours. LFTs No results for input(s): PREALBUMIN, ALBUMIN, BILITOT, BILIDIR, AST, ALT, ALKPHOS in the last 72 hours. MICRO: N/a IMAGING N/a ASSESSMENT: Amanuel Hussein is a 62 y.o. male now Day of Surgery s/p RALP Doing well, pain controlled, meeting discharge milestones. Continue pain control, PO intake, OOB. PLAN: Wade stays in, voiding trial in 7-10 days. Remove KRISSY drain at discharge. Associated attestation - Isidro Gutierrez III, MD - 12/11/2017 8:15 AM EDT I have seen the patient and reviewed the resident's above history and I agree with the details as written. The assessment and plan were formulated in discussion with me and I agree with them as documented. Isidro Gutierrez III, MD metal miner and Pediatrics [facility] [employer] Senior Staff Pediatric Urologist [facility] Aditi Uribe RN - 12/07/2017 6:31 PM EDT Arrived to floor this evening. Vital signs obtained. Wade with pink urine, patient complaining of urgency. Toradol and tylenol given as scheduled, pain rated a 4 out of 10. IVF infusing, PIV intact. Placed on clear liquid diet, chicken broth at bedside. Darling Cardoza RN - 12/07/2017 1:36 PM EDT Break coverage. Pt c/o urgent need to pee, wade draining freely . Reassured, tx with toradol and dilaudid. Amaya Reyna RN - 12/07/2017 1:00 PM EDT 1255 - Pt arrives to PACU via bed. Monitors on with alarms. Sleepy but arousable, denies pain and nausea. Report received and care assumed. 1400 - sleeping, no distress, awakes easily. 1535 - to BS. More awake, denies pain but feels like he has to pee. Given Ice chips documented in this encounter H&P Notes Nabil Camargo MD - 12/07/2017 8:18 AM EDT The patient's history and physical exam have been reviewed and completed. There has been no intervalchange from that of the pre-operative history and physical exam done with myself on 10/18/2017. NAD nRRR CTA b/l OK to proceed with planned RALP / bilateral PLND. documented in this encounter Miscellaneous Notes Plan of Care - Vale Ribeiro RN - 12/09/2017 3:10 PM EDT Problem: Patient Care Overview Goal: Plan of Care Review Outcome: Ongoing (Interventions Implemented as Appropriate) 12/08/17 1323 12/09/17820 Plan of Care Review Progress progress toward functional goals as expected -- Coping/Psychosocial Plan Of Care Reviewed With -- patient OUTCOME EVALUATION NOTE: OUTCOME SUMMARY: Patient c/o pain with movement. Patient's krissy dressing soaked with bloody drainage. Dressing changed.Patient watched wade care video and given wade supplies. Patient's krissy removed. PLAN MOVING FORWARD: Discharge to home. INDIVIDUALIZED FALL PREVENTION INTERVENTIONS: Patient-specific fall risk factors per assessment: [current deficits]: Abdominal pain Assistance [level of assistance required for transfers and ambulation]: 1 assist with walker Supervision [direct monitoring required during toileting and ADLs]: Hands on Surveillance [continuous indirect monitoring]: Purposeful rounding, bed alarm Patient-specific fall prevention interventions for sensory deficits provided, if applicable: yes CPG GOAL OUTCOME EVALUATION: Goal: Fall Prevention-Safe Patient Handling Outcome: Ongoing (Interventions Implemented as Appropriate) 12/08/17202912/09/17820 Activity Activity Type -- activity adjusted per tolerance Activity Assistance Provided -- assistance, 1 person Assistive Device Utilized -- front-wheel walker Daily Care Interventions Self-Care Promotion independence encouraged -- [place] Fall Risk History of Falling -- 0 Secondary Diagnosis -- 0 Ambulatory Aids -- 15 Intravenous Therapy/Heparin/Saline Lock -- 20 Gait/Transferring -- 0 Mental Status -- 0 Score -- 35 OTHER [place] Fall Risk -- Med Restraint Interventions Safety Promotion/Fall Prevention -- activity supervised Positioning Body Position -- independent Goal: Infection Control Outcome: Ongoing (Interventions Implemented as Appropriate) 12/08/17 2030 12/09/17820 Safety Interventions Isolation Precautions -- standard precautions maintained Infection Prevention environmental surveillance performed;personal protective equipment utilized;rest/sleep promoted;single patient room provided -- Coping Strategies Supportive Measures -- active listening utilized Goal: Discharge Needs Assessment Outcome: Ongoing (Interventions Implemented as Appropriate) 12/08/17 1323 Discharge Needs Assessment Concerns To Be Addressed denies needs/concerns at this time Readmission Within The Last 30 Days no previous admission in last 30 days Discharge Disposition still a patient Current Health Anticipated Changes Related to Illness none Activity/Self Care Review of Systems Equipment Currently Used at Home none Living Environment Transportation Available car;family or friend will provide Goal: Interdisciplinary Rounds/Family Conf Outcome: Ongoing (Interventions Implemented as Appropriate) 12/08/17 1323 Interdisciplinary Rounds/Family Conf Participants nursing;patient;physician Plan of Care - Susan Mcqueen RN - 12/09/2017 1:03 AM EDT Problem: Patient Care Overview Goal: Individualization & Mutuality Outcome: Ongoing (Interventions Implemented as Appropriate) 12/08/17 1323 Mutuality/Individual Preferences What Anxieties, Fears or Concerns Do You Have About Your Health or Care? none What Questions Do You Have About Your Health or Care? none What Information Would Help Us Give You More Personalized Care? none OUTCOME EVALUATION NOTE: OUTCOME SUMMARY: Amanuel had few complaints overnight. He reports his pain to be tolerable with scheduled Tylenol. Oxycodone available as needed. His bowel sounds are faint. He denies nausea. Abdominal incisions intact. KRISSY drain producing small amounts of serosanguineous drainage. Wade remains in place producing adequate amounts of clear yellow urine. PLAN MOVING FORWARD: ? Pain management, encourage ambulation, monitor output ? INDIVIDUALIZED FALL PREVENTION INTERVENTIONS: Patient scores as High risk for falls ? Patient-specific fall risk factors per assessment: [current deficits]: Patient has an actively infusing IV line, has generalized weakness, has KRISSY drains and wade? Assistance [level of assistance required for transfers and ambulation]: FWW with standby assist ? Supervision [direct monitoring required during toileting and ADLs]: Eyes on ? Surveillance [continuous indirect monitoring]: Purposeful rounding, observation by staff, NKE done at the bedside, bed/chair alarms activated, all alarms activated and audible. ? Patient-specific fall prevention interventions for sensory deficits provided, if applicable: Assistive device, bed/chair alarm, environmental modifications (waste basket is out of the path and the IV tubing and cords are free from the floor), fall reduction program in place, lighting adjusted for task, bed in low position, wheels locked, side rails up (x2), nonskid socks worn OOB, [place] ID band on, no restraints, and call light is within reach at all times. ? CPG GOAL OUTCOME EVALUATION: ?? Goal: Fall Prevention-Safe Patient Handling Outcome: Ongoing (Interventions Implemented as Appropriate) 12/08/172029 Activity Activity Type activity adjusted per tolerance;up ad [email or web address] Activity Assistance Provided assistance, stand-by Assistive Device Utilized front-wheel walker Daily Care Interventions Self-Care Promotion independence encouraged Rojo Fall Risk History of Falling 0 Secondary Diagnosis 0 Ambulatory Aids 15 Intravenous Therapy/Heparin/Saline Lock 20 Gait/Transferring 0 Mental Status 0 Score 35 OTHER Rojo Fall Risk Med Restraint Interventions Safety Promotion/Fall Prevention activity supervised;fall prevention program maintained;muscle strengthening facilitated;nonskid shoes/slippers when out of bed;safety round/check completed Positioning Body Position independent Goal: Infection Control Outcome: Ongoing (Interventions Implemented as Appropriate) 12/08/172029 Safety Interventions Isolation Precautions standard precautions maintained Infection Prevention environmental surveillance performed;personal protective equipment utilized;rest/sleep promoted;single patient room provided Coping Strategies Supportive Measures active listening utilized;problem solving facilitated;relaxation techniques promoted;self-care encouraged;verbalization of feelings encouraged Plan of Care - Celena Carter RN - 12/08/2017 1:38 PM EDT Problem: Patient Care Overview Goal: Plan of Care Review Outcome: Ongoing (Interventions Implemented as Appropriate) 12/08/17 1323 Plan of Care Review Progress progress toward functional goals as expected Coping/Psychosocial Plan Of Care Reviewed With patient OUTCOME EVALUATION NOTE: OUTCOME SUMMARY: Pt here s/p prostatectomy and bilateral pelvic lymphoidectomy. A&O x4. HR camille down to mid-50s,other vitals stable on RA. Pt's wade catheter continues to put out moderate amounts of clear yellowurine, does need to be manually manipulated at times to enhance drainage. Catheter care performed [id number]. MDs down to see pt, will check in this afternoon, possible d/c this evening or tomorrow AM. Pt ambulated around the unit x1. Continued on scheduled tylenol and Toradol, pain 2-3/10 well controlled with this dosing schedule. Pt's KRISSY drain continues to leak around insertion site, dressing changed x 1 this shift after saturation, MDs aware. Pt transferred to room 210B at 1610, report called to ANA Patton. PLAN MOVING FORWARD: Continue to monitor vitals and labs Monitor urine output Monitor output from KRISSY Encourage PO intake Encourage OOB Drain removal prior to d/c Home with wade D/C tomorrow 12/09 INDIVIDUALIZED FALL PREVENTION INTERVENTIONS: Patient-specific fall risk factors per assessment: [current deficits]: Generalized weakness, secondary diagnosis, IV Assistance [level of assistance required for transfers and ambulation]: SBA with walker Supervision [direct monitoring required during toileting and ADLs]: Eyes on Surveillance [continuous indirect monitoring]: Room near unit station, call cohen within reach, purposeful rounding Patient-specific fall prevention interventions for sensory deficits provided, if applicable: [X] N/A Goal: Individualization & Mutuality Outcome: Ongoing (Interventions Implemented as Appropriate) 12/08/17 1323 Mutuality/Individual Preferences What Anxieties, Fears or Concerns Do You Have About Your Health or Care? none What Questions Do You Have About Your Health or Care? none What Information Would Help Us Give You More Personalized Care? none Goal: Fall Prevention-Safe Patient Handling Outcome: Ongoing (Interventions Implemented as Appropriate) 12/08/17 0800 12/08/17 1044 12/08/17 1323 Activity Activity Type -- -- activity adjusted per tolerance Activity Assistance Provided -- assistance, stand-by -- Assistive Device Utilized -- front-wheel walker -- Daily Care Interventions Self-Care Promotion -- -- independence encouraged;BADL personal objects within reach Rojo Fall Risk History of Falling -- -- 0 Secondary Diagnosis -- -- 15 Ambulatory Aids -- -- 15 Intravenous Therapy/Heparin/Saline Lock -- -- 20 Gait/Transferring -- -- 10 Mental Status -- -- 0 Score -- -- 60 OTHER Rojo Fall Risk -- -- High Restraint Interventions Safety Promotion/Fall Prevention activity supervised;fall prevention program maintained;nonskid shoes/slippers when out of bed;safety round/check completed -- -- Positioning Body Position independent -- -- Goal: Infection Control Outcome: Ongoing (Interventions Implemented as Appropriate) 12/08/17 0800 Safety Interventions Isolation Precautions standard precautions maintained Infection Prevention environmental surveillance performed;equipment surfaces disinfected;rest/sleep promoted;single patient room provided Coping Strategies Supportive Measures active listening utilized;goal setting facilitated;positive reinforcement provided;relaxation techniques promoted;self-care encouraged;verbalization of feelings encouraged Goal: Discharge Needs Assessment Outcome: Ongoing (Interventions Implemented as Appropriate) 12/08/17 1323 Discharge Needs Assessment Concerns To Be Addressed denies needs/concerns at this time Readmission Within The Last 30 Days no previous admission in last 30 days Discharge Disposition still a patient Current Health Anticipated Changes Related to Illness none Activity/Self Care Review of Systems Equipment Currently Used at Home none Living Environment Transportation Available car;family or friend will provide Goal: Interdisciplinary Rounds/Family Conf Outcome: Ongoing (Interventions Implemented as Appropriate) 12/08/17 1323 Interdisciplinary Rounds/Family Conf Participants nursing;patient;physician Plan of Care - Clover Greenwood - 12/08/2017 4:14 AM EDT Problem: Patient Care Overview Goal: Plan of Care Review 12/08/17 0407 Plan of Care Review Progress no change OUTCOME EVALUATION NOTE: OUTCOME SUMMARY: Patient is going in to POD1 s/p prostatectomy for prostate ca. Wade output started out clear pink, now draining yellow. KRISSY drain has minimal serosanguous drainage, Dressing saturated, dressing changed. Patient tolerated clears with out nausea or emesis. Continues on antibiotics and IV fluids. Pain tolerable at 4/10 in abdomin. PLAN MOVING FORWARD: Monitor urine output, Monitor KRISSY drain Encourage fluid intake, Encourage to ambulate Will be going home with wade after he ambulates INDIVIDUALIZED FALL PREVENTION INTERVENTIONS: Patient-specific fall risk factors per assessment: [current deficits]: Recent surgery, drains and devices, IV pole Assistance [level of assistance required for transfers and ambulation]: 1 assist, not out of bed yet Supervision [direct monitoring required during toileting and ADLs]: Eyes on, hands on Surveillance [continuous indirect monitoring]: Hourly rounding, fall precaution in place, call cohen within reach, non slip footwear in use Patient-specific fall prevention interventions for sensory deficits provided, if applicable: [X] N/A CPG GOAL OUTCOME EVALUATION: Op Note - Reji Feng MD - 12/07/2017 12:47 PM EDT [facility] [place] Operative Note Patient Name: Amanuel Hussein : [id number] MR#: [id number] Case Date: 12/07/2017 Surgeon: Surgeon(s) and Role: * Nabil Camargo MD - Primary * Reji Feng MD - Resident-Surgeon Chief Preoperative diagnosis: Prostate Cancer Postoperative diagnosis: Prostate Cancer Procedure(s) (LRB): LAPAROSCOPIC PROSTATECTOMY, ROBOTICS ASSISTED (WRVU 21.36) (N/A) MODIFIER ROBOT,DAVINCI XI (N/A) LAPAROSCOPY,WITH BILATERAL TOTAL PELVIC LYMPHADENECTOMY, ROBOTIC (WRVU 12) (Bilateral) Findings: 1. Bilateral nerve spare, R>L 2. B/l pelvic lymphadenectomy 3. Watertight anastomosis to 180cc 4. Pelvic drain placed Anesthesia: General Estimated Blood Loss: 50 mL Specimens removed during surgery: Order Name Source Comment Collection Info Order Time SPECIMEN TO PATHOLOGY Prostate Cancer bilateral pelvic lymph nodes excision No 12/07/2017 11:43 AM Number of tissue samples (in container) 1 Time specimen removed from patient: 11:40 AM Biospecimen to store? No SPECIMEN TO PATHOLOGY Prostate Cancer prostate excision No 12/07/2017 11:43 AM Number of tissue samples (in container) 1 Time specimen removed from patient: 11:42 AM Biospecimen to store? No Drains: 18 Fr wade, 19 Fr andrea drain Surgical Closure: Primary Closure - skin incision is completely closed without any wires, elmer, drains or other devices Disposition: awakened from anesthesia, extubated and taken to the recovery room in a stable condition, having suffered no apparent untoward event. Condition: doing well without problems (Please see the Surgical Encounter Summary for any Implant and Specimen details pertinent to this patient.) HPI/Surgical Indications: Amanuel Hussein is a 62 yo M with history of unfavorable intermediate risk prostate cancer who presents for RAL prostatectomy. Procedure Description: The patient was identified in the pre-operative holding area. Consent was verified. The patient was taken to the operating room and placed supine on the operating table. General anesthesia was induced.The patient was prepped and draped in the usual sterile fashion, and was secured to the table. A timeout was performed involving all members of the OR team confirming the patient's identity and plannedprocedure. Preoperative antibiotics were administered. Veress needle insufflation was performed at the planned supraumbilical port site. The abdomen was thoroughly insufflated to a pressure of 15 mm Hg. An 8 mm robotic trocar with a blunt tip was inserted.No bowel or vascular injury was noted in the abdomen. Three additional 8 mm robotic trocars were inserted in a linear fashion. A 12 mm assistant press operator port was also inserted, through which AirSeal insufflation was established. A 5 mm assistant press operator port was inserted several cm superior to the LEFT iliac spine. The supraumbilical 8 mm port was exchanged for a 12 mm trocar with an 8 deck specialist. Steep Trendelenberg position was achieved, the da Deborah Xi robot was docked with fenestrated bipolar forceps in the left iniguez nd and monopolar scissors in the right hand. An incision was made on the peritoneum beneath the bladder. The vasa were identified and dissected. They were ligated and the bilateral seminal vesicles were also dissected free. The posterior plane was developed to the apex of the prostate. The bladder was dropped from the anterior abdominal wall by incising lateral to the medial umbilicalligaments. The pubic bone was identified and the space of Retzius developed. Fat was removed from the prostate and endopelvic fascia. The endopelvic fascia was incised bilaterally and the levator muscle swept from the prostate. The puboprostatic ligaments were taken and the apex exposed. The superficial dorsal vein was controlled with cautery. The dorsal venous complex was then ligated with a roboticstapler. The anterior bladder neck was opened and the catheter visualized. This was suspended under the pubicbone with the fourth arm. The posterior bladder neck was incised and the the posterior plane from prior dissection was entered. Incision of the posterior bladder neck was noted to be remote from the ureteral orifices. It was noted to be thin and a reinforcement stitch was done with a 3-0 Vicryl. The vasa and seminal vesicles were brought into the field. The prostate pedicle was taken in packets on both sides using Weck clips. Nerve-sparing was performed bilaterally, right > left. The dorsal vein was incised to the urethra, which was identified and isolated. The urethra was incised and transected. Residual rectourethralis was taken to liberate the prostate. The posterior dissection and rectum were inspected; there was no sign of injury. The prostate was placed in a specimen bag. Hemostasis was achieved using Weck clips on small vessels at the pedicles. Vesicourethral anastamosis was performed with two interlocked 3-0 V-Loc sutures. The posterior platewas brought together, and the anastamosis was run superiorly on each side. This was tied at the 12 o'clock position. The catheter was irrigated, and no leak was noted. The final catheter was inserted, and the balloon was inflated. Attention was turned to bilateral pelvic lymphadenectomy, starting on the LEFT. The medial umbilicalligament was retracted medially and traced to the internal iliac artery. The ureter was identified crossing over the iliac bifurcation. The internal iliac packet was taken from caudal to cranial. The external iliac vein was noted and the packet underneath it was taken, skeletonizing the obturator nerve and vessels with the lateral border being the pelvic sidewall. This packet was taken en bloc, clipped and removed with careful preservation of the nerve and ureter. The same procedure was performed without incident on the contralateral side. The nodes were removed and sent to Pathology as a single spe cimen. No gross evidence of lymph node metastasis was noted. The 12 mm assistant press operator port was closed with a Sae-Thomasen device. A Andrea drain was placed in the pelvis via an 8 mm port and secured with 2-0 Prolene drain stitch. All robotic ports were removed under vision. The prostate was extracted through the camera port under vision. The fascia was closed with0 Vicryl suture in interrupted fashion. The skin incisions were closed with 4-0 Monocryl suture. Dermabond skin glue was applied. The patient tolerated the procedure well and was awakened from anesthesia with no adverse events. A sponge and instrument count was performed and the counts were correct. The patient was taken to the recovery area in stable condition. Dr. Camargo, the attending surgeon, was present for the entire procedure. Plan: Antibiotic prophylaxis 24 hours. NPR. Drain removal before discharge. RTC 7-10 d voiding trial and post-op visit with Dr. Camargo. Infection Bundle used? N/A Associated attestation - Nabil Camargo MD - 12/07/2017 2:36 PM EDT Attestation: Case Date: 12/07/2017 I was present and I participated during the entire procedure (does not need to include opening and closing). Nabil Camargo MD 12/07/2017 Brief Op Note - Reji Feng MD - 12/07/2017 12:44 PM EDT Brief Operative Note Patient Name: Amanuel Hussein : [id number] MR#: [id number] Case Date: 12/07/2017 Surgeon: Surgeon(s) and Role: * Nabil Camargo MD - Primary * Reji Feng MD - Resident-Surgeon Chief Preoperative diagnosis: Prostate Cancer Postoperative diagnosis: Prostate Cancer Procedure(s) (LRB): LAPAROSCOPIC PROSTATECTOMY, ROBOTICS ASSISTED (WRVU 21.36) (N/A) MODIFIER ROBOT,DAVINCI XI (N/A) LAPAROSCOPY,WITH BILATERAL TOTAL PELVIC LYMPHADENECTOMY, ROBOTIC (WRVU 12) (Bilateral) Anesthesia: General Findings: 1. Bilateral nerve spare, R>L 2. B/l pelvic lymphadenectomy 3. Watertight anastomosis to 180cc 4. Pelvic drain placed Complications: none Estimated Blood Loss: 100cc Specimens removed during surgery: Order Name Source Comment Collection Info Order Time SPECIMEN TO PATHOLOGY Prostate Cancer bilateral pelvic lymph nodes excision No 12/07/2017 11:43 AM Number of tissue samples (in container) 1 Time specimen removed from patient: 11:40 AM Biospecimen to store? No SPECIMEN TO PATHOLOGY Prostate Cancer prostate excision No 12/07/2017 11:43 AM Number of tissue samples (in container) 1 Time specimen removed from patient: 11:42 AM Biospecimen to store? No Fluids: 1200cc crystalloid PRBCs: none Urine Output: 900cc Drains: 18 Fr wade, 19 Fr andrea drain Disposition: awakened from anesthesia, extubated and taken to the recovery room in a stable condition, having suffered no apparent untoward event. Condition: doing well without problems (Please see the Surgical Encounter Summary for any Implant and Specimen details pertinent to this patient.) Infection Bundle used? N/A documented in this encounter Plan of Treatment Upcoming Encounters Date Type Specialty Care Team Description 01/19/2022 Office Visit Radiation Oncology Clover Covarrubias, OUTGOING INSPECTOR [facility] [place], [place] [address] (Wo rk) 12/04/2022 Hospital Encounter Gastroenterology Real Jones MD [facility] GASTROENTEROLOGY DEPT. [place], [place] [address] (Wo rk) Scheduled Procedures Name Priority Associated Diagnoses Date/Time COLONOSCOPY, DIAGNOSTIC 10 yr f/up documented as of this encounter Procedures Procedure Name Priority Date/Time Associated Comments Diagnosis COLLEGE AND CAREER COUNSELOR SCAN 12/10/2017 12:00 Res ults for this AM EDT procedure are i n the results section. CREATININE LEVEL BODY Routine 12/09/2017 5:59 AM Results for this FLUID EDT procedure are i n the results section. HEMOGRAM Timed 12/09/2017 2:16 AM Results f or this EDT procedure are i n the results section. DIFFERENTIAL, Timed 12/09/2017 2:16 AM Results for this AUTOMATED EDT procedure are i n the results section. CBC (WITH DIFF) Timed 12/09/2017 2:16 AM EDT BASIC METABOLIC PANEL Timed 12/09/2017 2:16 AM Results for this (NON-FASTING) EDT procedure are in the results section. HEMOGRAM Timed 12/08/2017 4:22 AM Results f or this EDT procedure are i n the results section. DIFFERENTIAL, Timed 12/08/2017 4:22 AM Results for this AUTOMATED EDT procedure are i n the results section. CBC (WITH DIFF) Timed 12/08/2017 4:22 AM EDT BASIC METABOLIC PANEL Timed 12/08/2017 4:22 AM Results for this (NON-FASTING) EDT procedure are in the results section. LAPAROSCOPY W/ BRET Routine 12/07/2017 12:54 Prostate cancer TOTAL PELVIC LYMPH, PM EDT ROBOTIC SPECIMEN TO PATHOLOGY Routine 12/07/2017 11:43 Re sults for this AM EDT procedure are i n the results section. SPECIMEN TO PATHOLOGY Routine 12/07/2017 11:43 Re sults for this AM EDT procedure are i n the results section. SURGICAL PATHOLOGY Routine 12/07/2017 11:40 Resul ts for this REPORT AM EDT procedure are i n the results section. LAPAROSCOPY,WITH 12/07/2017 8:35 AM Prostate cancer BILATERAL TOTAL EDT PELVIC LYMPHADENECTOMY, ROBOTIC (WRVU 12) MODIFIER 12/07/2017 8:35 AM Prostate cancer ROBOT,DAVINCI XI EDT LAPAROSCOPIC 12/07/2017 8:35 AM Prostate cancer PROSTATECTOMY, EDT ROBOTICS ASSISTED (WRVU 21.36) ABORH RECHECK STATUS STAT 12/07/2017 6:53 AM R esults for this EDT procedure are i n the results section. TYPE AND SCREEN, SDP STAT 12/07/2017 6:53 AM Pre-operative exam (FUTURE SURGERY, [facility] [place] EDT SAME DAY PROGRAM ONLY) ABO/RH TYPING STAT 12/07/2017 6:53 AM Pre-operative exam Re sults for this EDT procedure are i n the results section. ANTIBODY SCREEN STAT 12/07/2017 6:53 AM Pre-operative exam Results for this EDT procedure are i n the results section. documented in this encounter Results SCAN DOC: COLLEGE AND CAREER COUNSELOR (12/10/2017 12:00 AM EDT) Narrative 12/10/2017 12:00 AM EDT This result has an attachment that is no t available. Ordered by an unspecified provider. Scanning Provider MEDIA MGR SCAN EXT ORDR/RSLT Creatinine Level Body Fluid KRISSY Drain (12/09/2017 5:59 AM EDT) P athologist Signature Anastacio BF 1.0 mg/dL [facility] Comment: No reference range is available for the specimen type submitted. ??The performance of this assay for the submit dwight type has not been validated and results should be interpreted accordingl y and with regard to the patient's clinical status. Creat, BF Type KRISSY Drain [facility] Specimen Anatomical Collection Method Collection Time Receive d Time (Source) Location / / Volume Laterality KRISSY Drain 12/09/2017 5:59 AM 8 6:07 EDT AM EDT Resulting Agency Comment Spec In Lab Nabil Camargo MD BODY FLUIDS AND STOOLS ORDER CORWIN Performing Organization Address City/State/[place] [address] Differential, Automated (12/09/2017 2:16 AM EDT) athologist Signature Neutrophils % 60.8 % [facility] Neutr Abs (ANC) 4.25 1.70 - [facility] 6.10 [facility] x10(3)/[facility] LABORATORY Lymphocytes % 28.4 % [facility] Lymphocytes Abs 2.0 0.9 - 3.2 [facility] x10(3)/[facility] LABORATORY Monocytes % 10.1 % [facility] Monocyte Abs 0.7 0.3 - 0.9 [facility] x10(3)/[facility] LABORATORY Eosinophils % 0.3 % [facility] Eosinophils Abs 0.0 0.0 - 0.4 [facility] x10(3)/[facility] LABORATORY Basophils % 0.3 % [facility] Basophils Abs 0.0 0.0 - 0.1 [facility] x10(3)/[facility] LABORATORY Immature Gran % 0.10 % [facility] Comment: Immature granulocytes(IG's)percentage an d absolute count will include metamyelocytes, myelocytes, and promyelo cytes. Blood smears from CBCs yielding IG's will be scanned manually for concor dance. If this scan disagrees with the automated IG or if promyelocytes are not ed, a manual differential will be performed. Malika Gran Abs 0.01 0.00 - 0.04 x10(3)/[facility] Y [facility] Specimen Anatomical Collection Method Collection Time Receive d Time (Source) Location / / Volume Laterality Blood specimen 12/09/2017 2:16 AM 018 2:37 (specimen) EDT AM EDT Resulting Agency Comment Spec In Lab Reji Feng MD HEMATOLOGY ORDERABLES Performing Organization Address City/State/[place] [address] (ABNORMAL) Hemogram (12/09/2017 2:16 AM EDT) Analysis Performed At Patho logist Time Signature WBC 7.0 4.0 - 9.5 [facility] x10(3)/[facility] LABORATORY RBC 3.76 (L) 4.58 - [place]A MIGUELINA 5.54 [facility] x10(6)/[facility] LABORATORY Hemoglobin 12.6 (L) 13.7 - [facility] 16.5 gm/dL [facility] Hematocrit 36.7 (L) 40.5 - [facility] 48.5 % [facility] MCV 97.6 (H) 82.9 - [facility] 93.1 [facility] LABORATORY MCH 33.5 (H) 27.5 - [facility] 32.1 pg [facility] MCHC 34.3 32.0 - [facility] 35.7 gm/dL [facility] Platelets 179 145 - 357 [facility] x10(3)/[facility] LABORATORY RDWSD 42.9 36.0 - [facility] 45.0 [facility] LABORATORY RDWCV 11.9 11.4 - [facility] 13.8 % [facility] MPV 8.8 7.6 - 12.9 [facility] LABORATORY nRBC % Auto 0.0 % [facility] nRBC Abs Auto 0.000 0.000 - [facility] MIGUELINA 0.000 [facility] x10(3)/[facility] LABORATORY Specimen Anatomical Collection Method Collection Time Receive d Time (Source) Location / / Volume Laterality Blood specimen 12/09/2017 2:16 AM 018 2:37 (specimen) EDT AM EDT Resulting Agency Comment Spec In Lab Reji Feng MD HEMATOLOGY ORDERABLES Performing Organization Address City/State/[place]IP [place] [address] (ABNORMAL) Basic Metabolic Panel (non-fasting) (12/09/2017 2:16 AM EDT) athologist Signature Glucose Lvl 119 65 - 199 [facility] mg/dL [facility] Comment: Diabetes: >=200 mg/dL plus symp toms BUN 19 10 - 20 mg/dL [facility] Creatinine 0.98 0.80 - 1.50 mg/dL [facility] Sodium 142 135 - 145 mmol/L [facility] Potassium 4.2 3.5 - 5.0 mmol/L [facility] Comment: Please note: ??Patients with WBC >100,00 0 may have falsely elevated Potassium levels. ??For accurate Potassium quantif ication in these patients send serum separator tube (gold top) for subsequent determinations. ??Contact the Clinical Chemistry Laboratory if there are any qu estions. Chloride 108 (H) 98 - 107 mmol/L [facility] CO2 25 22 - 31 mmol/L [facility] Anion Gap 9 5 - 15 mmol/L [facility] Calcium 8.0 (L) 8.5 - 10.5 mg/dL [facility] Estimated GFR 82 >=60 mL/min/1.73 m?? [facility] Comment: The eGFR was calculated using the CKD-EP I equation. As with all creatinine based estimates of kidney function, eGFR values calculated with the CKD-EPI equation are not accurate in patients wi th acute kidney failure, extremes of body mass or the acutely ill. [email or web address] [place] eGFR 95 >=60 mL/min/1.73 m?? [facility] Comment: The eGFR was calculated using the CKD-EP I equation. As with all creatinine based estimates of kidney function, eGFR values calculated with the CKD-EPI equation are not accurate in patients wi th acute kidney failure, extremes of body mass or the acutely ill. [email or web address] [place] Specimen Anatomical Collection Method Collection Time Receive d Time (Source) Location / / Volume Laterality Blood specimen 12/09/2017 2:16 AM 018 2:37 (specimen) EDT AM EDT Resulting Agency Comment Spec In Lab Nabil Camargo MD CHEMISTRY ORDERABLES Performing Organization Address City/State/Z[place] [address] (ABNORMAL) Differential, Automated (12/08/2017 4:22 AM EDT) [facility] Method Time Signature Neutrophils % 82.4 % [facility] Neutr Abs (ANC) 6.18 (H) 1.70 - [facility] 6.10 [facility] x10(3)/[facility] L LABORATORY Lymphocytes % 8.5 % [facility] Lymphocytes Abs 0.6 (L) 0.9 - 3.2 [facility] x10(3)/[facility] LABORATORY Monocytes % 8.8 % [facility] Monocyte Abs 0.7 0.3 - 0.9 [facility] x10(3)/[facility] LABORATORY Eosinophils % 0.0 % [facility] Eosinophils Abs 0.0 0.0 - 0.4 [facility] x10(3)/[facility] LABORATORY Basophils % 0.0 % [facility] Basophils Abs 0.0 0.0 - 0.1 [facility] x10(3)/[facility] LABORATORY Immature Gran % 0.30 % [facility] Comment: Immature granulocytes(IG's)percentage an d absolute count will include metamyelocytes, myelocytes, and promyelo cytes. Blood smears from CBCs yielding IG's will be scanned manually for concor dance. If this scan disagrees with the automated IG or if promyelocytes are not ed, a manual differential will be performed. Malika Gran Abs 0.02 0.00 - 0.04 x10(3)/[facility] Specimen Anatomical Collection Method Collection Time Receive d Time (Source) Location / / Volume Laterality Blood specimen 12/08/2017 4:22 AM 018 4:41 (specimen) EDT AM EDT Resulting Agency Comment Spec In Lab Reji Feng MD HEMATOLOGY ORDERABLES Performing Organization Address City/State/[place] [address] (ABNORMAL) Hemogram (12/08/2017 4:22 AM EDT) Analysis Performed At Patho logist Time Signature WBC 7.5 4.0 - 9.5 [facility]EL[facility] x10(3)/[facility] LABORATORY RBC 3.77 (L) 4.58 - [place] MIGUELINA 5.54 [facility] x10(6)/[facility] LABORATORY Hemoglobin 12.4 (L) 13.7 - [facility]DRA MIGUELINA 16.5 gm/dL [facility] Hematocrit 35.8 (L) 40.5 - [facility]IGUEL[facility] 48.5 % [facility] MCV 95.0 (H) 82.9 - [facility] MIGUELINA 93.1 [facility] LABORATORY MCH 32.9 (H) 27.5 - [facility] MIGUELINA 32.1 pg [facility] MCHC 34.6 32.0 - [facility] MIGUELINA 35.7 gm/dL [facility] Platelets 179 145 - 357 [facility] x[facility](3[facility] LABORATORY RDWSD 40.6 36.0 - [facility] MIGUELINA 45.0 [facility] LABORATORY RDWCV 11.7 11.4 - [facility]A MIGUELINA 13.8 % [facility] MPV 8.7 7.6 - 12.[address] [facility] MIGUELINA [facility] LABORATORY nRBC % Auto 0.0 % [facility] nRBC Abs Auto 0.000 0.000 - [place]DRA MIGUELINA 0.000 [facility] x10(3)/[facility] LABORATORY Specimen Anatomical Collection Method Collection Time Receive d Time (Source) Location / / Volume Laterality Blood specimen 12/08/2017 4:22 AM 018 4:41 (specimen) EDT AM EDT Resulting Agency Comment Spec In Lab Reji Feng MD HEMATOLOGY ORDERABLES Performing Organization Address City/State/Z[place] [address] (ABNORMAL) Basic Metabolic Panel (non-fasting) (12/08/2017 4:22 AM EDT) athologist Signature Glucose Lvl 126 65 - 199 [facility] mg/dL [facility] Comment: Diabetes: >=200 mg/dL plus symp toms BUN 19 10 - 20 mg/dL [facility] Creatinine 1.09 0.80 - 1.50 mg/dL [facility] Sodium 138 135 - 145 mmol/L [facility] Potassium 4.3 3.5 - 5.0 mmol/L [facility] Comment: Please note: ??Patients with WBC >100,00 0 may have falsely elevated Potassium levels. ??For accurate Potassium quantif ication in these patients send serum separator tube (gold top) for subsequent determinations. ??Contact the Clinical Chemistry Laboratory if there are any qu estions. Chloride 104 98 - 107 mmol/L [facility] CO2 22 22 - 31 mmol/L [facility] Anion Gap 12 5 - 15 mmol/L [facility] Calcium 7.7 (L) 8.5 - 10.5 mg/dL [facility] Estimated GFR 72 >=60 mL/min/1.73 m?? [facility] Comment: The eGFR was calculated using the CKD-EP I equation. As with all creatinine based estimates of kidney function, eGFR values calculated with the CKD-EPI equation are not accurate in patients wi th acute kidney failure, extremes of body mass or the acutely ill. [email or web address] [place] eGFR 83 >=60 mL/min/1.73 m?? [facility] Comment: The eGFR was calculated using the CKD-EP I equation. As with all creatinine based estimates of kidney function, eGFR values calculated with the CKD-EPI equation are not accurate in patients wi th acute kidney failure, extremes of body mass or the acutely ill. [email or web address] [place] Specimen Anatomical Collection Method Collection Time Receive d Time (Source) Location / / Volume Laterality Blood specimen 12/08/2017 4:22 AM 018 4:41 (specimen) EDT AM EDT Resulting Agency Comment Spec In Lab Nabil Camargo MD CHEMISTRY ORDERABLES Performing Organization Address City/State/ZIP [place] [address] Specimen to Pathology (12/07/2017 11:43 AM EDT) Specimen Anatomical Collection Method Collection Time Receive d Time (Source) Location / / Volume Laterality AP Specimen 12/07/2017 11:43 12/07/2017 AM EDT 12:40 PM EDT Narrative [facility] OR - 12/07/2017 12:40 PM EDT Specimen requisition ordered. ??Separate Pathology report to follow Resulting Agency Comment Spec In Lab Nabil Camargo MD PATHOLOGY/CYTOLOGY ORDERABLE S Performing Organization Address City/State/ZIP Code Phon e Number [address] Specimen to Pathology (12/07/2017 11:43 AM EDT) Specimen Anatomical Collection Method Collection Time Receive d Time (Source) Location / / Volume Laterality AP Specimen 12/07/2017 11:43 12/07/2017 AM EDT 12:40 PM EDT Narrative [facility] OR - 12/07/2017 12:40 PM EDT Specimen requisition ordered. ??Separate Pathology report to follow Resulting Agency Comment Spec In Lab Nabil Camargo MD PATHOLOGY/CYTOLOGY ORDERABLE S Performing Organization Address City/[facility]/ZIP [place] [address] Surgical Pathology Report (12/07/2017 11:40 AM EDT) Component Value Ref Test Analysis Performed At [facility] Method Time [facility] Surgical [id number] ? Location: 2WST; 0210; B [facility] Report The signing pathologist has (i) examined the relevant preparation(s) for the [facility] specimen(s) and (ii) rendered or confirmed the diagnosis(es) . HOSPITAL LABORATORY . ?Surgic al Pathology DIAGNOSIS A - Bilateral pelvic lymph nodes, excision: ?Two lymph nodes, no evidence of malignancy (0/2). B - Prostate gland, resection: ?1. Prostatic adenocarcinoma, grade group 2, [place] ? grade 3+4 (see Synoptic Report). ?2. Small periprostatic lymph node, no evidence of ? malignancy (0/1). SYNOPTIC REPORT Specimen ? Procedure: ??Radical prostatectomy Tumor ? Histologic Type: ?? Acinar adenocarcinoma ? Histologic Grade ?Primary [place] Pattern: ?? Pattern 3 ?Secondary [place] Pattern: ?? Pattern 4 ?Total [place] Score: ?? 7 ?Grade Group: ??2 ?Percentage of Pattern 4: ?? 40% ? Tumor Extent ?Tumor Loca tion: ?? Bilateral, all 4 quadrants, predominantly left anterior ? and posterior; apex involved by tumor ?Tumor Pito titation: ?? Estimated Percentage of Prostate Involved by Tumor - ? 27% ?Extraprostatic Extension (EPE): ?? Present , nonfocal ? Locati on of Extraprostatic Extension: ?Left posterior ?Urinary Bladder Neck Invasion: ?? Not iden tified ?Seminal Vesicle Invasion: ?? Not identifie d ? Accessory Findings ?Lymphovascular Invasion: ?? Not Identified ?Perineural Invasion: ?? Present Margins ? Margins: ??Involved by invasive carcinoma ?Margin Limitations: ?? Limited (< 3 mm) ?Focality: ??Unifocal ?Location of Positive Margin(s): ?? Anterio r apex ?Margin Pos itivity in Area of Extraprostatic Extension (EPE): ? Not ? identified ?Sarah Pattern at Positive Margin(s): ?Pattern 3 Lymph Nodes ? Number of Lymph Nodes Involved: ?? 0 ? Number of Lymph Nodes Examined: ?3 Pathologic Stage Classification (pTNM, AJCC 8th Edition) ? Primary Tumor (pT): ?? pT3a ? Regional Lymph Nodes (pN): ?? pN0 Tumor Block(s): ?? B9, B12, B16, B17 Normal Block(s): ?? B19 2016 AJCC 8th Edition CAP Annual Release . DIAGNOSIS CR-0 Electronically signed by: ??Parag PEREZ, Enrique Bain Verified: ??12/13/2017 ?Pathologist Performed at: ??-[facility] Dept. of Pathology, [place], [place] DISCUSSION In addition to the tumor pre sent at the inked anterior apical specimen resection margin, the carcinoma in fo ci extends to within 0.1 mm of the capsular margin. A recent study demonstrates that tumor within 0.01 cm (0.1 mm) but not at, the margin of a pT2 node-negative radical prostate ctomy is associated with a biochemical recurrence rate that is sim ilar to that of patients with a positive surgical margin (i.e. tumor cells touching ink). (Vern CEVALLOS et al. Mod Pathol 2013;26(suppl. 2),253A). Scanned slides: [id number] [id number] CLINICAL INFORMATION Specimen Submitted: A - Bilateral pelvic lymph nodes B - Prostate Clinical History and Diagnosis: Prostate cancer SPECIMEN PROCESSING A - ??Labeled/Fixative: Bilateral pelvic lymph nodes, fresh. Quantity/Size: Multiple, 5 x 3.5 x 2 cm. Tissue Description: Two lymp h nodes measuring up to 3.0 x 1.0 x 0.5 cm, brown-yellow adipose tissue. Sections/Processing: (1-2) a lymph node in 11 pieces; (3) a trisected lymph node. (R3) B - Labeled/Fixative: Prostate, fresh. Specimen Description: Intact, radical prostatectomy, oriente d. DIMENSIONS/WEIGHT Weight: 39 grams. [place] to base: 4.4 cm. Transverse: 4.1 cm. Anterior to posterior: 3.3 cm. Rt Seminal Vesicle: 1.5 x 0.7 x 0.3 cm. Lt Seminal Vesicle: 1.9 x 0.9 x 0.4 cm. Rt Vas Deferens: 2.1 cm. Lt Vas Deferens: 2.4 cm. PROSTATE Outer Surface: tse-pink smooth glistening. Cut Surface: Brown yellow lesion, involving 25 percent of pr ostate. The right half of the specim en is inked with Audrey ink and the left half with yellow ink. ??The prostate is seri ally sectioned from apex to base at 3-mm intervals. Sections of even-numbered t ransverse slices, as well as odd-numbered slices with grossly identified tumor, a re submitted in the following sequence: ??right anterior quadrant, right posterior q uadrant, left anterior quadrant, and left posterior quadrant. SECTIONS/PROCESSING: (1-3) b ladder neck margin; (4) apical anterior margin; (5) apical posterior margin. ?? Slices II-X are entirely submitted in the sequence of quadrants as noted above, a s follows: ??(6-9) slice II; (10-13) slice IV; (14-17) . SPECIMEN PROCESSING slice V; (18-21) slice ; ??(22-25) slice VIII; (26-29) slice IX; (30-33) slice X; (34) right seminal vesicle root to prostate tissue; (35-36) left seminal vesicle root to prostate tissue; (3 7) Right and left vas deferns margins en face; (38) vaccine customer representative distal right seminal vesicle; ; (39) vaccine customer representative distal left seminal vesicle; (40) core biopsy, RA; (41) core biopsy RP, (42) core biopsy LA; (43) core biopsy LP. ??(R43) ?? JULIA Specimen (Source) Anatomical Collection Method Collection Time Re ceived Time Location / / Volume Laterality 12/07/2017 11:40 AM EDT Nabil Camargo MD PATHOLOGY/CYTOLOGY ORDERABLE S Performing Organization Address [facility]/ZIP [facility] Phon e Number [address] ABORH Recheck Status (12/07/2017 6:53 AM EDT) Patholo gist Method Time Signature ABORH Type Completed [facility] LABORATORY Specimen Anatomical Collection Method Collection Time Receive d Time (Source) Location / / Volume Laterality Blood specimen 12/07/2017 6:53 AM 018 6:55 (specimen) EDT AM EDT Resulting Agency Comment Spec In Lab Nabil Camargo MD BLOOD BANK ORDERABLES Performing Organization Address [facility] [place] [address] Antibody screen (12/07/2017 6:53 AM EDT) [facility] gist Method Time Signature Ab Screen Negative [facility] LABORATORY Expires at 12/10/2017 [facility] [id number] on: [facility] Specimen Anatomical Collection Method Collection Time Receive d Time (Source) Location / / Volume Laterality Blood specimen 12/07/2017 6:53 AM 018 6:55 (specimen) EDT AM EDT Resulting Agency Comment Spec In Lab Nabil Camargo MD BLOOD BANK ORDERABLES Performing Organization Address City/[facility]/ZIP [place] [address] ABO/Rh Typing (12/07/2017 6:53 AM EDT) P athologist Signature ABORh Type B Pos [facility] Specimen Anatomical Collection Method Collection Time Receive d Time (Source) Location / / Volume Laterality Blood specimen 12/07/2017 6:53 AM 018 6:55 (specimen) EDT AM EDT Resulting Agency Comment Spec In Lab Nabil Camargo MD BLOOD BANK ORDERABLES Performing Organization Address City/State/ZIP Code [place] [address] documented in this encounter Visit Diagnoses Diagnosis Pre-operative exam Preoperative examination, unspecified Prostate cancer Malignant neoplasm of prostate documented in this encounter Admitting Diagnoses Diagnosis Prostate cancer Malignant neoplasm of prostate documented in this encounter Administered Medications Inactive Administered Medications - up to 3 most recent administrations Medication Order MAR Action Action Date Dose Rate Site acetaminophen (TYLENOL) tablet Given 12/07/2017 7:45 AM EDT 1,00 0 mg 1,000 mg 1,000 mg, Oral, ONCE, 1 dose, On Sun12/07/17 at 0745, Administer with SIP of H2O only., Day of Surgery (Day of Procedure), Routine acetaminophen (TYLENOL) tablet 1,000 mg Given 12/09/2017 11:49 AM EDT 1,000 mg 1,000 mg, Oral, EVERY 6 HOURS SCHEDULED, First dose on Sun12/07/17 at 1400, Until Discontinued, Maximum dose of acetaminophen is 4000 mg from all sources in 24 hours., Routine Given 12/09/2017 5:54 AM EDT 1,000 mg Given 12/09/2017 12:13 AM EDT 1,000 mg ceFAZolin (ANCEF) 2g in dextrose 5% New Bag 12/08/2017 3:06 AM EDT 2 g 200 mL/hr 100 mL 2 g, Intravenous, EVERY 8 HOURS, 2 doses, First dose (after last reorder) on Sun12/07/17 at 2000, Last dose on Sun12/08/17 at 0400, Administer over 30 Minutes, Indication for (Active or Suspected): Prophylaxis New Bag 12/07/2017 8:14 PM EDT 2 g 200 mL/hr docusate sodium (COLACE) capsule 100 mg Given 12/09/2017 8:11 AM EDT 100 mg 100 mg, Oral, 2 TIMES DAILY, First dose on Sun12/07/17 at 2100, Until Discontinued, Routine Given 12/08/2017 8:33 PM EDT 100 mg Given 12/08/2017 8:48 AM EDT 100 mg gabapentin (NEURONTIN) capsule 600 mg Given 12/07/2017 7:45 AM EDT 600 mg 600 mg, Oral, ONCE, 1 dose, On Sun12/07/17 at 0745, Administer with SIP of H2O only., Day of Surgery (Day of Procedure), Routine heparin (Porcine) subcutaneous injection Given 018 7:45 AM EDT 5,000 Units 5,000 Units 5,000 Units, Subcutaneous, 30 MIN PRE-OP, 1 dose, On Sun12/07/17 at 0745, Day of Surgery (Day of Procedure), Routine heparin (Porcine) subcutaneous injection Given 018 2:47 PM EDT 5,000 Units 5,000 Units 5,000 Units, Subcutaneous, EVERY 8 HOURS SCHEDULED, First dose on Sun12/07/17 at 1730, Until Discontinued, Routine Given 12/09/2017 5:54 AM EDT 5,000 Units Given 12/08/2017 6:03 PM EDT 5,000 Units HYDROmorphone (DILAUDID) injection 0.2-0 .4 mg Given 12/07/2017 1:32 PM EDT 0.4 mg 0.2-0.4 mg, Intravenous, EVERY 5 MIN PRN, Starting on Sun12/07/17 at 1242, Until Sun12/07/17 at 1627, Pain, Give 0.2 mg every 5 minutes PRN for mild to moderate pain (1-5) Give 0.4 mg every 5 minutes PRN for moderate to severe pain (6-10). Hold for respiratory rate less than 10 per minute. Maximum dose 4 mg over one hour. If multiple pain medications are ordered, start with hydromorphone or morphine and use fentanyl for breakthrough pain., PACU Recovery, Routine ketorolac (TORADOL) injection 15 mg Given 12/08/2017 6:03 PM EDT 15 mg 15 mg, Intravenous, EVERY 6 HOURS SCHEDULED, 6 doses, First dose on Sun12/07/17 at 1330, Last dose on Sun12/08/17 at 1800, Routine Given 12/08/2017 12:19 PM EDT 15 mg Given 12/08/2017 6:05 AM EDT 15 mg lactated Ringers infusion 1,000 New Bag 12/07/2017 7:45 AM EDT 1,000 mLs 100 mL/hr mL 1,000 mL, at 100 mL/hr, Intravenous, CONTINUOUS, Starting on Sun12/07/17 at 0745, Until Sun12/07/17 at 1627, Day of Surgery (Day of Procedure) ondansetron (ZOFRAN) injection 4 mg 4 mg, Intravenous, EVERY 8 HOURS PRN, St arting on Sun12/07/17 at 1709, Until Sun12/09/17 at 1827, Nausea, May repeat time s one in 30 minutes if ineffective. If multiple antiemetics are ordered, use ondansetron firs t., Recovery (Recovery-Hospital Unit) ondansetron (ZOFRAN) tablet 4 mg 4 mg, Oral, EVERY 8 HOURS PRN, Starting on Sun12/07/17 at 1709, Until Sun12/09/17 at 1827, Nausea, Vomiting, If multipl e antiemetics are ordered, use ondansetron first. PO Preferred. If patient unable to take PO, may give IV if ordered. May repeat times one in 45 minutes if ineffe ctive., Recovery (Recovery-Hospital Unit), Routine oxyCODONE (ROXICODONE) immediate release tablet 10-15 mg 10-15 mg, Oral, EVERY 4 HOURS PRN, Starting on 11/24 at 1313, Until Sun12/09/17 at 1827, Pain, severe pain (7-10 ), Initial dose 10mg. If pain control not adequate in 60 minutes, give additional 5mg, Routine oxyCODONE (ROXICODONE) immediate release tablet Given 12/09/2017 2:51 PM EDT 5 mg 5-10 mg 5-10 mg, Oral, EVERY 4 HOURS PRN, Starting on Sun12/07/17 at 1313, Until Sun12/09/17 at 1827, Pain, moderate pain (4-6), Initial dose 5mg. If pain control not adequate in 60 minutes, give additional 5mg, Routine sodium chloride 0.9 % flush 5 mL Given 12/09/2017 8:11 AM EDT 5 mLs 5 mL, Intravenous, 2 TIMES DAILY, First dose on Sun12/07/17 at 2100, Until Discontinued, Recovery (Recovery-Hospital Unit), Routine Given 12/08/2017 8:34 PM EDT 5 mLs Given 12/08/2017 8:04 AM EDT 5 mLs sodium chloride 0.9% infusion New Bag 12/08/2017 4:42 PM EDT 1,000 mLs 100 mL/hr 1,000 mL, at 100 mL/hr, Intravenous, CONTINUOUS, Starting on Sun12/07/17 at 1330, Until 12/09/17 at 1827, Recovery (Recovery-Hospital Unit) New Bag 12/08/2017 12:00 AM EDT 1,000 mLs 100 mL/hr New Bag 12/07/2017 1:19 PM EDT 1,000 mLs 100 mL/hr documented in this encounter Active and Recently Administered Medications Times are shown in EDT. Scheduled Medication Order 12/07/2017 12/08/2017 12/09/2017 acetaminophen (TYLENOL) tablet 1,000 mg (COMPLETED) 07 45 (Given - Provider: Ruthie Peters, ANA) 1,000 mg, Oral, ONCE, 1 dose, Sun 8 at 0745, Administer with SIP of H2O only., Day of Surgery (Day of Procedure), Routine acetaminophen (TYLENOL) tablet 1,000 mg 1709 (Not Give n - Provider: Aditi Uribe RN - Reason: Transfer to a Procedural area)1800 (Given - Provider: Aditi Uribe RN)2359 (Given - Provider: Clover Greenwood) 0605 (Given - Provider: Clover Greenwood)1407 (Given - Provider: Celena Carter RN)1803 (Given - Provider: Rebecca Avitia, ANA) 0013 (Given - Provider: Susan Mcqueen, ANA)0554 (Given - Provider: Susan Mcqueen, ANA)1149 (Given - Provider: Vale Ribeiro RN) 1,000 mg, Oral, EVERY 6 HOURS SCHEDULED, First dose on Sun12/07/17 at 1400, Until Discontinued, Maximum dose of acetaminophen is 4000 mg from all sources in 24 hours., Routine ceFAZolin (ANCEF) 2g in dextrose 5% 100 mL (COMPLETED) 914 (Given - Provider: Chikis Farley MD)1213 (Given - Provider: Maria E Holder MD) 2 g, Intravenous, DISPATCH ASSOCIATE TO O.R., 1 dos e, Sun12/07/17 at 0745, Administer over 30 Minutes, Day of Surgery (Day of Procedure), Indication for (Active or Suspected): Prophylaxis ceFAZolin (ANCEF) 2g in dextrose 5% 100 mL (COMPLETED) 2013 (New Bag - Provider: Clover Greenwood)204 (Stopped - Provider: Clover Greenwood) 0306 (New Bag - Provider: Clover Greenwood)0336 (Stopped - Provider: Clover Greenwood) 2 g, Intravenous, EVERY 8 HOURS, 2 doses , First dose on Sun12/07/17 at 2000, Last dose on Sun12/08/17 at 0400, Administer over 30 Minutes, Indication for (Active or Suspected): Prophylaxis docusate sodium (COLACE) capsule 100 mg 2011 (Given - Provid er: Clover Greenwood) 0848 (Given - Provider: Celena Carter RN)2032 (Given - Provider: Susan Mcqueen, ANA) 0811 (Given - Provider: Vale Ribeiro , ANA) 100 mg, Oral, 2 TIMES DAILY, First dose on Sun12/07/17 at 2100, Until Discontinued, Routine gabapentin (NEURONTIN) capsule 600 mg (COMPLETED) 0745 (Given - Provider: Ruthie Peters RN) 600 mg, Oral, ONCE, 1 dose, Sun12/07/17 at 0745, Administer with SIP of H2O only., Day of Surgery (Day of Procedure), Routine heparin (Porcine) subcutaneous injection 5,000 Units ( COMPLETED) 0745 (Given - Provider: Ruthie Peters RN) 5,000 Units, Subcutaneous, 30 MIN PRE-OP , 1 dose, Sun12/07/17 at 0745, Day of Surgery (Day of Procedure), Routine heparin (Porcine) subcutaneous injection 5,000 Units 1 800 (Given - Provider: Aditi Uribe RN) 0306 (Given - Provider: Clover Greenwood)0 909 (Given - Provider: Celena Carter, ANA)1803 (Given - Provider: Rebecca Avitia RN) 0554 (Given - Provider: Susan Mcqueen, ANA)1447 (Given - Provider: Vale Ribeiro, ANA) 5,000 Units, Subcutaneous, EVERY 8 HOURS SCHEDULED, First dose on Sun12/07/17 at 1730, Until Discontinued, Routine ketorolac (TORADOL) injection 15 mg (COMPLETED) 1328 ( Given - Provider: Darling Cardoza RN)1800 (Given - Provider: Aditi R Rony, RN)2357 (Given - Provider: Clover Greenwood) 0605 (Given - Provider: Clover Greenwood)1 219 (Given - Provider: Celena Carter, ANA)1803 (Given - Provider: Rebecca Avitia, ANA) 15 mg, Intravenous, EVERY 6 HOURS SCHEDU LED, 6 doses, First dose on Sun12/07/17 at 1330, Last dose on Sun12/08/17 at 1800, Routine sodium chloride 0.9 % flush 5 mL 2100 (Not Given - Pro vider: Clover Greenwood - Reason: See comment) 0804 (Given - Provider: Celena Carter RN)2034 (Given - Provider: Susan Mcqueen, ANA) 0811 (Given - Provider: Vale Ribeiro RN) 5 mL, Intravenous, 2 TIMES DAILY, First dose on Sun12/07/17 at 2100, Until Discontinued, Recovery (Recovery-Hospital Unit), Routine Continuous Medication Order 12/07/2017 12/08/2017 12/09/2017 lactated Ringers infusion 1,000 mL (CANCELED) 0745 (Ne w Bag - Provider: Ruthie Peters, ANA) 1,000 mL, at 100 mL/hr, Intravenous, CON TINUOUS, Starting Sun12/07/17 at 0745, Until Sun12/07/17 at 1627, Day of Surgery (Day of Procedure) sodium chloride 0.9% infusion 1319 (New Bag - Provider: Melissa Reyna RN) 0000 (New Bag - Provider: Clover Greenwood)1642 (New Bag - Provider: Rebecca Avitia, ANA) 1,000 mL, at 100 mL/hr, Intravenous, CON TINUOUS, Starting Sun12/07/17 at 1330, Until 12/09/17 at 1827, Recovery (Recovery-Hospital Unit) PRN Medication Order 12/07/2017 12/08/2017 12/09/2017 BUpivacaine (SENSORCAINE) 0.25 % (2.5 mg/mL) injection (CANCELED) 1254 (Given - Provider: Reji Feng MD) ONCE PRN, Starting Sun12/07/17 at 1254, Until 12/09/17 at 1827, Intra- Operative (Intra-Procedure), Routine HYDROmorphone (DILAUDID) injection 0.2-0.4 mg (CANCELE D) 1332 (Given - Provider: Darling Cardoza RN) 0.2-0.4 mg, Intravenous, EVERY 5 MIN PRN , Starting Sun12/07/17 at 1242, Until 12/07/17 at 1627, Pain, Give 0.2 mg every 5 minutes PRN for mild to moderate pain (1-5) Give 0.4 mg every 5 minutes PRN f or moderate to severe pain (6-10). Hold for respiratory rate less than 10 per minute. Maximum dose 4 mg over one hour. If multiple pain medications are ordered, start with hydromorphone or morphine and use fentanyl for breakthrough pain., PACU Recovery, Routine lidocaine (XYLOCAINE) 10 mg/mL (1 %) injection 3 mg 3 mg (0.3 mL), Subcutaneous, ONCE PRN, 1 dose, Starting Sun12/07/17 at 1709, Until Sun12/09/17 at 1827, for discomfort with PIV insertion, Recovery (Recovery-Hospital Unit), Routine ondansetron (ZOFRAN) injection 4 mg(Linked Group 1) 4 mg, Intravenous, EVERY 8 HOURS PRN, St arting Sun12/07/17 at 1709, Until Sun12/09/17 at 1827, Nausea, May repeat times one in 30 minutes if ineffective. If multiple antiemetics are ordered, use onda nsetron first., Recovery (Recovery-Hospital Unit) ondansetron (ZOFRAN) tablet 4 mg(Linked Group 1) 4 mg, Oral, EVERY 8 HOURS PRN, Starting Sun12/07/17 at 1709, Until Sun12/09/17 at 1827, Nausea, Vomiting, If multiple antiemetics are ordered, use ondansetron first. PO Preferred. If patient unable to take PO, may give IV if ordered. May repeat times one in 45 minutes if ineffective., Recovery (Recovery-Hospital Unit), Routine oxyCODONE (ROXICODONE) immediate release tablet 10-15 mg(Linked Group 2) 1451 (See Alternative - Provider: Vale Ribeiro RN) 10-15 mg, Oral, EVERY 4 HOURS PRN, Start ing Sun12/07/17 at 1313, Until Sun12/09/17 at 1827, Pain, severe pain (7-10), Initial dose 10mg. If pain control not adequate in 60 minutes, give additional 5mg, Routine oxyCODONE (ROXICODONE) immediate release tablet 5-10 mg(Linked G roup 2) 1451 (Given - Provider: Vale Ribeiro RN) 5-10 mg, Oral, EVERY 4 HOURS PRN, Starti ng Sun12/07/17 at 1313, Until 12/09/17 at 1827, Pain, moderate pain (4-6), Initial dose 5mg. If pain control not adequate in 60 minutes, give additional 5mg, Routine sodium chloride 0.9 % flush 5-20 mL 5-20 mL, Intravenous, EVERY 1 MIN PRN, S tarting Sun12/07/17 at 1709, Until 12/09/17 at 1827, flush, Flush pertains to all indwelling lines. Flush per protocol found in the job aid using the link prov ided on this medication record., Recovery (Recovery-Hospital Uni t), Routine Linked Groups Order Group 1: ondansetron (ZOFRAN) tablet 4 mgJump to med 4 mg, Oral, EVERY 8 HOURS PRN, Starting Sun12/07/17 at 1709, Until 12/09/17 at 1827, Nausea, Vomiting
If multiple antiemetics are ordered, use ondansetron first. PO Preferred. If patient unable to take PO, may give IV if ordered. May repeat times one in 45 minutes if ineffective.
Recovery (Recovery-Hospital Unit), Routine Or ondansetron (ZOFRAN) injection 4 mgJump to med 4 mg, Intravenous, EVERY 8 HOURS PRN, St arting Sun12/07/17 at 1709, Until 12/09/17 at 1827, Nausea
May repeat times one in 30 minutes if ineffective. If multiple antiemetics are ordered, use ondansetron first.
Rec overy (Recovery-Hospital Unit) Group 2: oxyCODONE (ROXICODONE) immediate release tablet 5-10 mgJump to med 5-10 mg, Oral, EVERY 4 HOURS PRN, Starti ng Sun12/07/17 at 1313, Until 12/09/17 at 1827, Pain, moderate pain (4-6)
Initial dose 5mg. If pain control not adequate in 60 minutes, give additional 5mg
Routine Or oxyCODONE (ROXICODONE) immediate release tablet 10-15 mgJump to med 10-15 mg, Oral, EVERY 4 HOURS PRN, Start ing Sun12/07/17 at 1313, Until 12/09/17 at 1827, Pain, severe pain (7-10)
Initial dose 10mg. If pain control not adequate in 60 minutes, give additional 5mg
Routine documented in this encounter Care Teams Plastics Fabricator Or Welder Relationship Specialty Start Date End Date Clara Wood MD PCP - General Family Medicine 01/26/17 [address] [place] [address] documented as of this encounter
--- OUTSIDE RECORDS SUMMARY | 2021-12-30 01:32 | XMS_ITS | Encounter Summary ---
:1955 Author Organization [facility] [place] [address] Care Team Providers Name Role Phone Clara Wood MD Primary Care Provider Encounter Details Date Type Department Care Team Description 04/23/2018 Surgery Gastroenterology at [facility] Kaiser Doyle EGD, UPPER GI [facility] Alexsandra Dickinson [place] [address] [facility] [phone] GASTROENTEROLOGY [place] [address] (Wo rk) Social History Tobacco Use Types [...] Sign Reading Time Taken Comments Blood Pressure 154/102 04/23/2018 9:30 AM EST Pulse 60 04/23/2018 9:30 AM EST Temperature 36.9 ??C (98.4 ??F) 04/23/2018 7:39 AM EST Respiratory Rate 18 04/23/2018 9:30 AM EST Oxygen Saturation 98% 04/23/2018 9:30 AM EST Inhaled Oxygen Concentration - - Weight 88.5 kg (195 lb) 04/23/2018 7:39 AM EST Height 175.3 cm (5' 9) 04/23/2018 7:39 AM EST Body Mass Index 28.8 04/23/2018 7:39 AM EST documented in this encounter Discharge Instructions Discharge InstructionsMario Mcintosh RN - 04/23/2018 9:58 AM EST UPPER GI ENDOSCOPY WHAT TO EXPECT AFTER THE PROCEDURE After the test you may feel a little more gassy or bloated than usual, this is normal. ACTIVITY Because of the sedation that you received Your judgement and reaction time are affected ?? Go home and rest quietly for the remainder of the day. You may resume your normal activities tomorrow. ?? Change from one position to the next slowly. You may lose your balance unexpectedly Be careful on stairs, as you may be unsteady on your feet. FOR THE NEXT 24 HRS ?? DO NOT DRIVE OR OPERATE ANY MACHINERY ?? DO NOT DRINK ALCOHOLIC BEVERAGES ?? DO NOT SIGN LEGAL DOCUMENTS ?? If you are a smoker: DO NOT SMOKE WHILE YOU ARE ALONE Diet ?? Start by eating small portions of foods that ordinarily will not upset your stomach. Be gentle with what you choose to start with. ?? Drink plenty of fluids ( unless otherwise told not to) Medications You may have a mild sore throat. Ice chips, popsicles, over the counter throat lozenges or spray may help numb your throat. This procedure should not cause a fever. IV SITE-- slight redness or tenderness is normal, you can use warm compresses if you get concerned.If the tenderness +/or redness increases or foul drainage and a red streak occurs, please contact your PCP immediately. WHEN SHOULD YOU CALL FOR HELP? Call 911 anytime you think that you need emergency care. For example, call if: You passed out (lost consciousness). You cough up blood. You vomit blood or what looks like coffee grounds. You pass maroon or very bloody stools. Call your healthcare provider or seek immediate medical attention if: You have trouble swallowing. You have belly pain. Your stools are black or tarlike or have streaks of blood. You are sick to your stomach or cannot keep fluids down. Watch closely for changes in your health, and be sure to contact your doctor IF Your throat still hurts after a day or two You do not get better as expected. Sunday-Sunday Same Day Endo [phone] [id number]-8p Otherwise contact [phone] and ask to speak to the science consultant ribbon hand Follow-up care is a johnson part of your treatment and safety. Be sure to make and go to all appointments, and call your doctor if you are having problems. Instructions have been reviewed and patient expresses understanding documented in this encounter Medications at Time of Discharge Medication Sig Dispensed Refills Start Date End Date acetaminophen (TYLENOL) 325 Take 650 mg by mouth 0 mg Tablet every 4 hours as needed for Pain. documented as of this encounter H&P Notes Kaiser Doyle MD - 04/23/2018 9:24 AM EST Patient Name: Amanuel Hussein Patient Age: 63 y.o. Birthdate: 1955 Admit date: 04/23/2018 Attending Physician: Kaiser Doyle MD Gastroenterology & Hepatology Pre-Procedure History and Physical Planned Procedure: EGD: Indication: screen for Latif's, s/p Manny fir esophageal reflux/ulcer Patient Active Problem List Diagnosis Code ??? Esophageal ulcer K22.10 ??? Hematemesis K92.0 ??? Hiatal hernia K44.9 ??? 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 Prostate cancer C61 Medications: Reviewed in EDH No Known Allergies Social History/Family History: Reviewed in EDH. No changes Exam: Most Recent Vitals: 04/23/18 0739 Temp: 36.9 ??C (98.4 ??F) GEN: NAD, AAOX3 HEENT: NC/AT dryMM, anicteric Chest: CTAB Heart: RRR, nl s1, s2 Abdomen: normal bowel sounds, soft, non tender Assessment and Plan: Proceed with EGD: ASA Grade: ASA 2 - Patient with mild systemic disease with no functional limitations Mallampati: I (soft palate, uvula, fauces, tonsillar pillars visible) Sedation plan: Moderate Conscious sedation Risks and benefits of the procedure were discussed with the patient. Consent has been signed. documented in this encounter Plan of Treatment Upcoming Encounters Date Type Specialty Care Team Description 01/19/2022 Office Visit Radiation Oncology Satish Clover Amber, RESIDENTIAL DESIGNER [facility] RADIATION ONCOLO [place], [place] [address] (Wo rk) 12/04/2022 Hospital Encounter Gastroenterology Real Jones MD [facility] GASTROENTEROLOGY DEPT. [place], [place] [address] (Wo rk) Scheduled Procedures Name Priority Associated Diagnoses Date/Time COLONOSCOPY, DIAGNOSTIC 10 yr f/up documented as of this encounter Procedures Procedure Name Priority Date/Time Associated Comments Diagnosis SPECIMEN TO PATHOLOGY Routine 04/23/2018 9:52 Res ults for this AM EST procedure are i n the results section. SURGICAL PATHOLOGY Routine 04/23/2018 9:42 Result s for this REPORT AM EST procedure are i n the results section. UPPER GASTROINTESTINAL 04/23/2018 9:30 Patient with ENDOSCOPY,WITH BIOPSY AM EST history of severe SINGLE OR MULTIPLE (WRVU reflux needs EGD 2.49) in 1 year (Late 2017 or early 2018) to screen for Latif's. EGD, UPPER GI ENDOSCOPY 04/23/2018 9:30 Patient with AM EST history of severe reflux needs EGD in 1 year (Late 2018 or early 2018) to screen for Latif's. UPPER GI ENDOSCOPY Routine 04/23/2018 9:18 Result s for this AM EST procedure are i n the results section. documented in this encounter Results Specimen to Pathology (04/23/2018 9:52 AM EST) Specimen Anatomical Collection Method Collection Time Receive d Time (Source) Location / / Volume Laterality AP Specimen 04/23/2018 9:52 AM 9 EST 10:55 AM EST Narrative [facility] - 04/23/2018 10:55 AM EST Specimen requisition ordered. ??Separate Pathology report to follow Resulting Agency Comment Spec In Lab Kaiser Doyle MD PATHOLOGY/CYTOLOGY ORDERABLE S Performing Organization Address City/[facility]/ZIP [place] [address] [facility] [address] Surgical Pathology Report (04/23/2018 9:42 AM EST) Component Value Ref Test Analysis Performed At [facility] Method Time Signature Surgical [id number] ? Location: 4T; EA11; A [facility] Report The signing pathologist has (i) examined the relevant preparation(s) for the MEMORIAL specimen(s) and (ii) rendered or confirmed the diagnosis(es) . HOSPITAL LAB[facility] . ?Surgic al Pathology DIAGNOSIS GE junction, ??biopsy: Squamous esophageal and cardiac mucosa with chronic nonspeci fic gastritis. No goblet cell metaplasia is seen. Electronically signed by: ??Luan Singleton MD Verified: ??04/25/2018 ?Pathologist Performed at: ??-[facility] Dept. of Pathology, [place], [place] CLINICAL INFORMATION Specimen Submitted: A - Ge junction 40 Clinical History and Diagnosis: Esophagitis, GERD, screening Latif's SPECIMEN PROCESSING A - Labeled/Fixative: GE junction BX, formalin. Quantity/Size: Five, averaging 0.2 cm. Tissue Description: Soft, white tissues. Sections/Processing: Submitted en toto ??in 1 cassette labeled A1. ??dolores Specimen (Source) Anatomical Collection Method Collection Time Re ceived Time Location / / Volume Laterality 04/23/2018 9:42 AM EST Kaiser Doyle MD PATHOLOGY/CYTOLOGY ORDERABLE S Performing Organization Address City/[facility]/ZIP [place] [address] [facility] [address] UPPER GI ENDOSCOPY (04/23/2018 9:18 AM EST) Component Value Ref Test Analysis Performed At [facility] Method Time Signature UPPER GI [facility] ENDOSCOPY Endoscopy Procedure Date: 04/23/2018 9:18 AM ? Patient Name: Amanuel Hussein ? Date of : 1955 ? Age: 63 ? Order #: [id number] ? Instrument Name: [id number] ? Procedure: ? Upper GI endoscopy Indications: ? Screening for Latif's esophagus, ? Follow-up of reflux esophagit is Patient Profile: ? This is a 63 year old male. Providers: ? Kaiser Doyle MD, Britany Collazo , ? RN, Mario Saldana MD: ?Clara Wood MD, Al balderas Medicines: ? Midazolam 4 mg IV, Fentanyl 200 ? micrograms IV Complications: ? No immediate complications. Procedure: ? Pre-Anesthesia Assessment: ? - Prior to the procedure, a H istory ? and Physical was performed, a nd ? patient medications and aller gies ? were reviewed. The patient's ? tolerance of previous anesthe rhiannon was ? also reviewed. The risks and benefits ? of the procedure and the shazia tion ? options and risks were discus sed with ? the patient. All questions we re ? answered, and informed consen t was ? obtained. Prior Anticoagulant s: The ? patient has taken no previous ? anticoagulant or antiplatelet agents. ? ASA Grade Assessment: II - A patient ? with mild systemic disease. A fter ? reviewing the risks and benef its, the ? patient was deemed in satisfa ctory ? condition to undergo the proc edure. ? The procedure, indications, b enefits, ? risks and alternatives were e xplained ? to the patient. Specifically ? discussed were potential ? complications including, but not ? limited to, bleeding, perfora tion, ? infection, missing a cancer, and ? adverse medication reactions. The ? Endoscope was introduced thro ugh the ? mouth, and advanced to the ird part ? of duodenum. The patient tole rated ? the procedure well. The upper GI ? endoscopy was accomplished [facility] ? difficulty. The patient ernesto ated the ? procedure well. ? Findings: ? The Z-line was irregular and was found 40 cm from the ? incisors. ? LA Grade C (one or more mucosal breaks continuous ? between tops of 2 or more mucosal folds, less than ? 75% circumference) esophagitis with no bleeding was ? found 40 to 41 cm from the incisors. There were some ? focal mucosal changes Biopsies were taken with a cold ? forceps for histology. ? Evidence of a 270 degree fundoplication was found in ? the cardia and in the gastric fundus. The wrap ? appeared loose. This was traversed. The gastric folds ? were narrowed due to wrap at 41-42 cm. ? The exam of the stomach was otherwise normal. ? The examined duodenum was normal. ? Moderate Sedation: ? Moderate (conscious) sedation was administered by the ? endoscopy nurse and supervised by the endoscopist. ? The patient's oxygen saturation, heart rate, blood ? pressure and response to care were monitored. ? I was present during the intraservice time as ? documented by the sedation RN. Impression: ?- Z-line irregular, 40 cm from the ? incisors. ? - LA Grade C reflux esophagit is. ? Biopsied. ? - A 270 degree fundoplication was ? found. The wrap appears loose . ? - Normal examined duodenum. Recommendation: ?- Await pathology results. ? - Start Daily PPI therapy. ? Attending Participation: ? I personally performed the entire procedure. ? Dr. Austin Doyle Kaiser Doyle MD 04/23/2018 10:19:53 AM Number of Addenda: 0 Note Initiated On: 04/23/2018 9:18 AM Specimen (Source) Anatomical Collection Method Collection Time Re ceived Time Location / / Volume Laterality 04/23/2018 9:18 AM EST Clara Wood MD GENERAL SURGICAL ORDERABLES Performing Organization Address City/State/ZIP Code Phon e Number [facility] documented in this encounter Visit Diagnoses Not on filedocumented in this encounter Administered Medications Inactive Administered Medications - up to 3 most recent administrations Medication Order MAR Action Action Date Dose Rate Site fentaNYL 50 mcg/mL multi-dose Given 04/23/2018 9:42 AM EST 50 mc g Right Arm injection ONCE PRN, Starting on Sun04/23/18 at 0933, Until Sun04/23/18 at 1303, Intra-Operative (Intra-Procedure), Routine Given 04/23/2018 9:39 AM EST 50 mcg Right Arm Given 04/23/2018 9:36 AM EST 50 mcg Right Arm lactated Ringers infusion New Bag 04/23/2018 8:00 AM EST 100 mL/hr 100 mL/hr 100 mL/hr, Intravenous, CONTINUOUS, Starting on Sun04/23/18 at 0800, Until Sun04/23/18 at 1303, Endoscopy (Day of Procedure) midazolam (PF) (VERSED) multi-dose injec tion Given 04/23/2018 9:42 AM EST 1 mg ONCE PRN, Starting on Sun04/23/18 at 0933, Until Sun04/23/18 at 1303, Intra-Operative (Intra-Procedure), Routine Given 04/23/2018 9:39 AM EST 1 mg Given 04/23/2018 9:35 AM EST 1 mg documented in this encounter Active and Recently Administered Medications Times are shown in EST. Continuous Medication Order 04/21/2018 04/22/2018 04/23/2018 lactated Ringers infusion 0800 ( New Bag - Provider: Torrie Douglas RN) 100 mL/hr, at 100 mL/hr, Intravenous, CO NTINUOUS, Starting Sun04/23/18 at 0800, Until Sun04/23/18 at 1303, Endo (Day of Procedure) PRN Medication Order 04/21/2018 04/22/2018 04/23/2018 fentaNYL 50 mcg/mL multi-dose injection (CANCELED) 0933 (Given - Provider: Britany Collazo RN)0936 (Given - Provider: Britany Collazo, ANA)0939 (Given - Provider: Britany Collazo RN)0942 (Given - Provider: Britany Collazo RN) ONCE PRN, Starting Sun04/23/18 at 0933, Until Sun04/23/18 at 1303, Intra- Operative (Intra-Procedure), Routine midazolam (PF) (VERSED) multi-dose injection (CANCELED) 33 (Given - Provider: Britany M Collazo, RN)0935 (Given - Provider: Britany Collazo RN)0939 (Given - Provider: Britany Collazo RN)0942 (Given - Provider: Birtany Collazo RN) ONCE PRN, Starting 04/23/18 at 0933, Until Sun04/23/18 at 1303, Intra- Operative (Intra-Procedure), Routine documented in this encounter Care Teams [employer] System Administrator Relationship Specialty Start Date End Date Clara Wood MD PCP - General Family Medicine 01/26/17 [address] [place] [address] documented as of this encounter
--- OUTSIDE RECORDS SUMMARY | 2021-12-30 01:32 | XMS_ITS | Encounter Summary ---
:1955 [place] [address] Care Team Providers Name Role Phone Clara Wood MD Primary Care Provider Reason for Visit Auth/Cert Specialty Diagnoses / Procedures Referred By Contact Refer red To Contact Diagnoses Prostate Cancer Procedures PRO LAP, PROSTATECTOMY, RADICAL, W/NERVE SPARE LAPAROSCOPIC PROSTATECTOMY, ROBOTICS ASSISTED (WRVU 21.36) Referral ID Status Reason Start Date Expiration Date Visits Requ ested Visits Authorized [id number] 1 1 Encounter Details Date Type Department Care Team Description 12/07/2017 Anesthesia Event Main Operating Room Maria E Bennett MD [facility] [place] [address] [place] [address] [phone] Anesthesia Record Procedure Summary Procedure Name Responsible Anesthesia Start Anesthesia Stop Anesthesiologist Time Time LAPAROSCOPIC Maria E Holder MD 12/07/17 0836 12/07/17 12 58 PROSTATECTOMY, ROBOTICS ASSISTED (WRVU 21.36) (N/A Pelvis) Events Date Time Event Comment 12/07/2017 0836 AN Verify 0836 Start 0836 An Start Data 0845 An Induction 0850 An Intubation 0855 Anesthesia Ready 0926 Skin Incision 0946 1246 Extubation/LMA Out 1253 an stop data 1258 Recovery or ICU Handoff Patient care was transferred to the destination unit staff after review of the patient's medica l history, current anesthetic/surgi sharmila status and plan, according to the Provider Handoff Checklist. 1258 Stop Name Total Midazolam 2 mg fentaNYL 100 mcg IV Lidocaine 60 mg Propofol 240 mg Rocuronium 120 mg PHENYLephrine 320 mcg ePHEDrine 10 mg Ondansetron 4 mg Dexamethasone 8 mg Neostigmine 4 mg Glycopyrrolate 0.8 mg ceFAZolin (ANCEF) 2g in dextrose 5% 100 mL 4 g Propofol INF 284.49 mg lactated Ringers infusion 1,000 mL 0 mL Lactated Ringers 0 mL Agents Name O2 Air N2O Sevoflurane (et) Blood No blood administrations on file. Lines, Drains, and Airways Type Details Placement Removal Urethral Catheter 12/07/17; Urologic 12/07/17 0000 by surgery; indwelling Estephania Moran RN double lumen catheter; latex; 18; inserted at this facility; 1; 5; 10; none; drainage bag to dependent drainage Drain/Device Site 12/07/17; Right; 12/07/17 0000 by collapsible closed Estephania Moran RN device; Sterile prep and drape; 19 maria teresa drain Incision 02/28/17; 0811; (chest, 02/28/17 0811 by 8 [id number] by port sites x 6); Mario Jaeger RN Smith, Debr a L, RN 12/07/17; 1239 Incision 12/07/17; abdomen; 12/07/17 0000 by 11/21/21 171 5 by laparoscopic puncture; Estephania Moran RN Mul ler, Dierdre L robotic ports x 4 with 2 lap pads; 11/21/21 (LDA cleanup utility RA#[id number]); 1715 (LDA cleanup utility RA#[id number]) PIV 12/07/17; 0807; median 12/07/17 0807 by Hoffman, 1455 by vein (underside of arm), ANA Rodgers Cheryl A, RN left; [id number] catheter system; 18 gauge, 1 in length; Alisia Hoffman RN; intradermal injection, distraction, tolerated well; 0; 12/09/17; 1455 ETT Mask Ventilation: Easy 12/07/17 0850 by 12/07/17 1253 by (1); ETT Type: Agapitoed, Chikis Farley MD Os Chikis mustafa, Oral; ETT Size: 7.5 mm; Mac Blade: 3; Notes: Asleep, Pre-O2, Stylette; Attempts: 1; Laryngoscopy Grade: 1; ETT Placement Verified By: Auscultation, Capnometry; Secured at Teeth: 23 cm; Inserted by: Shanel Farley MD NG/OG Tube 12/07/17; 09; 12/07/17 0910 by 12/07/17 1540 b y orogastric; mouth; Taped; Chikis Farley MD Jerome, Clover R 12/07/17; 1540 PIV 12/07/17; 0910; 12/07/17 0910 by 12/09/17 1455 b y metacarpal vein (top of Chikis Farley MD K oenig, Cheryl A, RN hand), right; [id number]-[id number] catheter system; 18 gauge; Perla Holder MD; 12/09/17; 1455 documented in this encounter Social History Tobacco Use Types Packs/Day Years [...] on file documented as of this encounter OR Notes Anesthesia Postprocedure Evaluation - Chikis Farley MD - 12/07/2017 1:00 PM EDT [facility] Department of Anesthesiology Post-procedure Note Patient: Amanuel Hussein Procedure Summary Date Anesthesia Start Anesthesia Stop Room / Location 12/07/[address] [place] [address] OR [facility] MAIN OR Procedure Diagnosis Surgeon Responsible Provider LAPAROSCOPIC PROSTATECTOMY, ROBOTICS ASSISTED (WRVU 21.36) (N/A Pelvis); MODIFIER ROBOT,DAVSABINAI XI (N/A ); LAPAROSCOPY,WITH BILATERAL TOTAL PELVIC LYMPHADENECTOMY, ROBOTIC (WRVU 12) (Bilateral Flank) Prostate cancer (Prostate Cancer) Nabil Camargo MD Schroeck, Hedwig, MD All Anesthesia Providers: Anesthesiologist: Maria E Holder MD Inspector Packer Glass Container: Chikis Farley MD Most Recent Vitals: 12/07/17 0714 BP: 159/90 Pulse: 62 Resp: 16 Temp: 36.7 ??C (98.1 ??F) SpO2: 98% Pain Patient Location: PACU/[facility] Level of Consciousness: Awake and Alert Pain Management: Satisfactory Analgesia PONV: None Cardiovascular Status: At Baseline and Hemodynamically Stable Respiratory Status: At Baseline and Room Air Postoperative Fluid Status: Intravascular EUvolemia Possible Anesthetic Complications: NONE apparent at time of evaluation Final Primary Anesthesia Type: General (The anesthetic type performed was the same as planned.) Comments: Pt reports no concerns. Satisfied with anesthesia care. Chikis Farley MD Anesthesia Preprocedure Evaluation - Chikis Farley MD - 12/06/2017 6:03 PM EDT Pre-Anesthesia Evaluation for: Amanuel Hussein a 62 y.o. male. Procedure(s): LAPAROSCOPIC PROSTATECTOMY, ROBOTICS ASSISTED (WRVU 21.36) MODIFIER ROBOT,DAVINCI XI Patient Active Problem List Diagnosis ??? Paraesophageal hernia ??? Hiatal hernia ??? Esophageal ulcer ??? Hematemesis Past Medical History: Diagnosis Date ??? GERD (gastroesophageal reflux disease) Past Surgical History: Procedure Laterality Date ??? PRO COLONOSCOPY, DIAGNOSTIC 12/04/2012 COLONOSCOPY, DIAGNOSTIC performed by Real Jones MD at [facility] ENDOSCOPY ??? PRO LAPAROSCOPY, SURG, REPAIR PARAESOPHAGEAL HERNIA, W/O IMPLANTATION OF MESH N/A 02/28/2017 ROBOT XI LAPAROSCOPIC PARAESOPHAGEAL HERNIA REPAIR W/FUNDOPLASTY,W/O MESH (WRVU 26.6) performed by Al Ortiz MD at [facility] MAIN OR ??? PRO UPPER GI ENDOSCOPY, BIOPSY 12/04/2012 UPPER GASTROINTESTINAL ENDOSCOPY,WITH BIOPSY SINGLE OR MULTIPLE performed by Real Jones MD at [facility] ENDOSCOPY ??? PRO UPPER GI ENDOSCOPY, BIOPSY N/A 11/29/2016 UPPER GASTROINTESTINAL ENDOSCOPY,WITH BIOPSY SINGLE OR MULTIPLE (WRVU 2.49) performed by Kaiser Doyle MD at [facility] ENDOSCOPY ??? PRO UPPER GI ENDOSCOPY, DIAGNOSTIC N/A 02/28/2017 EGD, UPPER GI ENDOSCOPY performed by Al Ortiz MD at [facility] MAIN OR Social History Substance Use Topics ??? Smoking status: Former Smoker Packs/day: 1.50 Years: 20.00 Types: Cigarettes Quit date: 1981 ??? Smokeless tobacco: Never Used ??? Alcohol use Yes Comment: rarely History Drug Use No No Known Allergies Medications: MAR and/or home medications have been reviewed. Physical Exam: There were no vitals filed for this visit. There is no height or weight on file to calculate BMI. Airway Assessment: Mallampati: II TM distance: >3 FB Neck ROM: full Cardiovascular Assessment: cardiovascular exam normal Pulmonary Assessment: pulmonary exam normal Dental Assessment: - normal exam Misc Assessment: Anesthesia Plan: ASA 2 general, with a(n) intravenous induction 62 y.o. male with PMHX of hiatal hernia w/ esophageal ulcer s/p repair (02/2017) and newly diagnosedprostate ca now scheduled for laparoscopic robotic-assisted prostatectomy. Medical/Surgical History: GERD, hiatal hernia w/ esophageal ulcer s/p repair (02/2017), also reportsshoulder surgery, achilles tendon repair, carpal tunnel Anesthetic History: 02/2017 RSI, no mask, grade 1 view with MAC 3, a line placed intraoperatively when bleeding encountered, patient reports no issues with anesthesia Allergies reviewed Labs reviewed Exercise tolerance: Greater than 4 METS EK/17 sinus camille, 1st degree A-V block, boarderline criteria for inf infarct but stable from previous NPO Status: appropriate Anesthetic Plan: GA w/ ETT Standard ASA monitoring PIV access x 2 Chikis Farley MD 12/06/2017 Region - Other Informed Consent: Anesthetic plan and risks discussed with patient and spouse. Use of blood products discussed with patient and spouse who. Plan discussed with attending. PAT Staff Note documented in this encounter Plan of Treatment Upcoming Encounters Date Type Specialty Care Team Description 01/19/2022 Office Visit Radiation Oncology Clover Covarrubias, CAN TENDER [facility] RADIATION ONCJENNIFER GY [place], [place] [address] (Wo rk) 12/04/2022 Hospital Encounter Gastroenterology Real Jones MD [facility] GASTROENTEROLOGY DEPT. [place], [place] [address] (Wo rk) Scheduled Procedures Name Priority Associated Diagnoses Date/Time COLONOSCOPY, DIAGNOSTIC 10 yr f/up documented as of this encounter Visit Diagnoses Not on filedocumented in this encounter Administered Medications Inactive Administered Medications - up to 3 most recent administrations Medication Order MAR Action Action Date Dose Rate Site ceFAZolin (ANCEF) 2g in dextrose 5% Given 12/07/2017 12:13 PM ED T 2 g 100 mL 2 g, Intravenous, RECEIVING WORKER TO O.R., 1 dose, On Sun12/07/17 at 0745, Administer over 30 Minutes, Day of Surgery (Day of Procedure), Indication for (Active or Suspected): Prophylaxis Given 12/07/2017 9:15 AM EDT 2 g dexamethasone (DECADRON) injection Given 12/07/2017 9:21 AM EDT 8 mg PRN, Starting on Sun12/07/17 at 0921, Until Sun12/07/17 at 1301, Anesthesia Intra-op, Routine ePHEDrine 5 mg/mL multi-dose injection Given 12/07/2017 9:23 AM EDT 10 mg PRN, Starting on Sun12/07/17 at 0923, Until Sun12/07/17 at 1301, Anesthesia Intra-op, Routine fentaNYL 50 mcg/mL multi-dose injection Given 12/07/2017 12:23 PM EDT 25 mcg PRN, Starting on Sun12/07/17 at 0845, Until Sun12/07/17 at 1301, Pain, Anesthesia Intra-op, Routine Given 12/07/2017 11:00 AM EDT 25 mcg Given 12/07/2017 8:45 AM EDT 50 mcg glycopyrrolate (ROBINUL) multi-dose Given 12/07/2017 12:27 PM ED T 0.8 mg injection PRN, Starting on Sun12/07/17 at 1227, Until Sun12/07/17 at 1301, Anesthesia Intra-op, Routine lactated Ringers infusion New Bag 12/07/2017 8:55 AM EDT CONTINUOUS PRN, Starting on Sun12/07/17 at 0855, Until Sun12/07/17 at 1301, Anesthesia Intra-op lidocaine (PF) (XYLOCAINE) 100 mg/5 mL (2 %) Given 8 8:45 AM EDT 60 mg injection PRN, Starting on Sun12/07/17 at 0845, Until Sun12/07/17 at 1301, Anesthesia Intra-op, Routine midazolam (PF) (VERSED) 1 mg/mL multi-dose Given 12/07/2017 8:55 AM EDT 1 mg injection PRN, Starting on Sun12/07/17 at 0836, Until Sun12/07/17 at 1301, Sleep, Anesthesia Intra-op, Routine Given 12/07/2017 8:36 AM EDT 1 mg neostigmine (BLOXIVERZ) injection Given 12/07/2017 12:27 PM EDT 4 mg PRN, Starting on Sun12/07/17 at 1227, Until Sun12/07/17 at 1301, Anesthesia Intra-op, Routine ondansetron (ZOFRAN) injection Given 12/07/2017 11:42 AM EDT 4 mg PRN, Starting on Sun12/07/17 at 1142, Until Sun12/07/17 at 1301, Nausea, Anesthesia Intra-op, Routine PHENYLephrine in NS (PF) (SHABBIR-SYNEPHRINE) Given 12/07/2017 9:19 AM EDT 160 mcg 0.8 mg/10 mL (80 mcg/mL) multi-dose injection Syrg PRN, Starting on Sun12/07/17 at 0907, Until Sun12/07/17 at 1301, Anesthesia Intra-op, Routine Given 12/07/2017 9:07 AM EDT 160 mcg propofol (DIPRIVAN) 10 mg/mL bolus injection Given 8:45 AM EDT 240 mg (Anesthesia) PRN, Starting on Sun12/07/17 at 0845, Until Sun12/07/17 at 1301, Anesthesia Intra-op propofol (DIPRIVAN) infusion New Bag 12/07/2017 9:53 AM 30 mcg/kg/min 15.7 mL/hr CONTINUOUS PRN, Starting on EDT Sun12/07/17 at 0953, Until Sun12/07/17 at 1301, Anesthesia Intra-op, Routine rocuronium (ZEMURON) multi-dose injectio n Given 12/07/2017 11:48 AM EDT 10 mg PRN, Starting on Sun12/07/17 at 0845, Until Sun12/07/17 at 1301, Anesthesia Intra-op, Routine Given 12/07/2017 11:19 AM EDT 10 mg Given 12/07/2017 11:03 AM EDT 10 mg documented in this encounter Care Teams Pin Cleaner Relationship Specialty Start Date End Date Clara Wood MD PCP - General Family Medicine 01/26/17 [address] [place] [address] documented as of this encounter
--- OUTSIDE RECORDS SUMMARY | 2021-12-30 01:32 | XMS_ITS | Encounter Summary ---
:1955 Author Organization [facility] [place] [address] Care Team Providers Name Role Phone Clara Wood MD Primary Care Provider Encounter Details Date Type Department Care Team Description 06/13/2019 Telephone Urology at [facility] Nabil Camargo MD [facility] [place] [place] [address] UROLOGY [phone] [place] [address] (Wo rk) Social History Tobacco Use Types [...] Telephone Encounter - Nabil Camargo MD - 06/13/2019 12:39 PM EDT I called Amanuel Lomax to discuss his upcoming Urology appointment. I explained that due to the COVID-19 pandemic we are making attempts to decrease the amount of non-urgent patients seen in our clinic and hospital to both decrease the risk of transmission of the virus and conserve vital resources. I personally reviewed his medical records including pertinent imaging and labs. After review I do feel that his upcoming appointment is medically urgent and therefore I recommendedwe plan FUV with the next 3 months with a PSA. I thanked him for his understanding and cooperation. documented in this encounter Plan of Treatment Upcoming Encounters Date Type Specialty Care Team Description 01/19/2022 Office Visit Radiation Oncology Clover Covarrubias, DEACON [facility] RADIATION ONCOLO [place], [place] [address] (Wo rk) 12/04/2022 Hospital Encounter Gastroenterology Real Jones MD [facility] GASTROENTEROLOGY DEPT. [place], [place] [address] (Wo rk) Scheduled Procedures Name Priority Associated Diagnoses Date/Time COLONOSCOPY, DIAGNOSTIC 10 yr f/up documented as of this encounter Visit Diagnoses Not on filedocumented in this encounter Care Teams Design Studio Consultant Relationship Specialty Start Date End Date Clara Wood MD PCP - General Family Medicine 01/26/17 [address] [place] [address] documented as of this encounter
--- OUTSIDE RECORDS SUMMARY | 2021-12-30 01:32 | XMS_ITS | Encounter Summary ---
:1955 Author Organization [facility] [place] [address] Care Team Providers Name Role Phone Clara Wood MD Primary Care Provider Encounter Details Date Type Department Care Team Description 10/18/2017 Clinical Support Same Day at [facility] [place] [place] [address] Social History Tobacco Use Types Packs/Day Years [...] documented as of this encounter Progress Notes Enid Montemayor, RN - 10/18/2017 10:40 AM EDT PAT questionnaire reviewed with patient and while in Pre Admission testing. Denies any issues with anesthesia in the past. Very healthy gentleman who previously had a hiatal hernia repaired here in Feb. Pre-operative instruction booklet reviewed. Patient verbalizes a good understanding of all information reviewed. PLAN: Testing: Labs Special medication instructions: Will need to have T&S done on the DOS, [facility] Procedure date: 12/07/17 documented in this encounter Plan of Treatment Upcoming Encounters Date Type Specialty Care Team Description 01/19/2022 Office Visit Radiation Oncology Clover Covarrubias, DEACON [facility] RADIATION ONCOLO [place], [place] [address] (Wo rk) 12/04/2022 Hospital Encounter Gastroenterology Real Jones MD [facility] GASTROENTEROLOGY DEPT. [place], [place] [address] (Wo rk) Scheduled Procedures Name Priority Associated Diagnoses Date/Time COLONOSCOPY, DIAGNOSTIC 10 yr f/up documented as of this encounter Visit Diagnoses Diagnosis Pre-operative exam Preoperative examination, unspecified documented in this encounter Care Teams Sack Sorter Relationship Specialty Start Date End Date Clara Wood MD PCP - General Family Medicine 01/26/[address] [place] [address] documented as of this encounter
--- OUTSIDE RECORDS SUMMARY | 2021-12-30 01:32 | XMS_ITS | Encounter Summary ---
:1955 Author Organization [place] [address] Care Team Providers Name Role Phone Clara Wood MD Primary Care Provider Encounter Details Date Type Department Care Team Description 12/10/2018 Office Visit Urology at [facility] [place] Nabil Camargo Malignant neoplasm of [facility] MD [address] [place] [address] UROLOGY [phone] [place], [place] [address] (Wo rk) Social History Tobacco Use Types [...] Sign Reading Time Taken Comments Blood Pressure 152/91 12/10/2018 10:53 AM EDT Pulse 61 12/10/2018 10:53 AM EDT Temperature - - Respiratory Rate 16 12/10/2018 10:53 AM EDT Oxygen Saturation 99% 12/10/2018 10:53 AM EDT Inhaled Oxygen Concentration - - Weight - - Height - - Body Mass Index - - documented in this encounter Progress Notes Dagrosa, Nabil M, MD - 12/10/2018 11:00 AM EDT Urologic Oncology Clinic Note Date of Service: December 10, 2018 Name: Amanuel Lomax : 1955 CC: Prostate cancer HPI: Amanuel Lomax is a 63 y.o. old male with a history of [...] 1PPD and not often wet. UUI resolved. No erections yet. Past Medical History: Diagnosis Date ??? GERD (gastroesophageal reflux disease) ??? Prostate cancer 12/07/2017 Social History Socioeconomic History ??? Marital status: Spouse name: Not on file ??? Number of children: Not on file ??? Years of education: Not on file ??? Highest education level: Not on file Occupational History ??? Not on file Social Needs ??? Financial resource strain: Not on file ??? Food insecurity: Worry: Not on file Inability: Not on file ??? Transportation needs: Medical: Not on file Non-medical: Not on file Tobacco Use ??? Smoking status: Former Smoker Packs/day: 1.50 Years: 20.00 Pack years: 30.00 Types: Cigarettes Last attempt to quit: 1982 Years since quittin.7 ??? Smokeless tobacco: Never Used Substance and Sexual Activity ??? Alcohol use: Yes Comment: rarely ??? Drug use: No ??? Sexual activity: Not on file Lifestyle ??? Physical activity: Days per week: Not on file Minutes per session: Not on file ??? Stress: Not on file Relationships ??? Social connections: Talks on phone: Not on file Gets together: Not on file Attends lutheran service: Not on file Active member of club or organization: Not on file Attends meetings of clubs or organizations: Not on file Relationship status: Not on file ??? Intimate partner violence: Fear of current or ex partner: Not on file Emotionally abused: Not on file Physically abused: Not on file Forced sexual activity: Not on file Other Topics Concern ??? Not on file Social History Narrative ??? Not on file Physical Exam: Vital Signs: BP (!) 152/91 Pulse 61 Resp 16 SpO2 99% General: No acute distress Lungs: Unlabored breathing PSA Since surgery 02/2018 - <0.01 05/2018 - <0.01 09/2018 - 0.02 Assessment: # Prostate cancer, pT3aN0, Grade Group 2, Margin limited (<3mm) anterior apex. Sarah 3 at margin s/p L>R NS RALP / PLND 12/07/2017 with low detectable, stable PSA Plan: # PSA in six months # Reinforced Kegel exercises, offered pelvic floor PT if he is not happy with current voiding # Discussed PDE5-I, he is not interested at this time 20 minutes spent in counseling and coordination of care documented in this encounter Plan of Treatment Upcoming Encounters Date Type Specialty Care Team Description 01/19/2022 Office Visit Radiation Oncology Clover Covarrubias APRN [facility] RADIATION [address] [place], [place] [address] (Wo rk) 12/04/2022 Hospital Encounter Gastroenterology Real Jones MD [facility] GASTROENTEROLOGY DEPT. [place], [place] [address] (Wo rk) Scheduled Procedures Name Priority Associated Diagnoses Date/Time COLONOSCOPY, DIAGNOSTIC 10 yr f/up documented as of this encounter Results PSA (Ultrasensitive) (09/08/2019 2:07 PM EDT) P athologist Signature PSA Total 0.03 0.00 - ALEXANDRA MIGUELINA (Ultrasensitiv 4.00 ng/mL [facility] LABORATORY Specimen Anatomical Collection Method Collection Time Receive d Time (Source) Location / / Volume Laterality Blood specimen 09/08/2019 2:07 PM 020 2:17 (specimen) EDT PM EDT Resulting Agency Comment Spec In Lab Nabil Camargo MD CHEMISTRY ORDERABLES Performing Organization Address City/State/ZIP Code [place] [address] documented in this encounter Visit Diagnoses Diagnosis Malignant neoplasm of prostate documented in this encounter Care Teams Border Police Relationship Specialty Start Date End Date Clara Wood MD PCP - General Family Medicine 01/26/17 [address] [place] [address] documented as of this encounter
--- OUTSIDE RECORDS SUMMARY | 2021-12-30 01:32 | XMS_ITS | Encounter Summary ---
:1955 Author Organization [facility] [place] [address] Care Team Providers Name Role Phone Clara Wood MD Primary Care Provider Reason for Visit Reason Onset Date Comments Prostate Cancer 10/18/2017 Consultation (Routine) - Specialty Diagnoses / Procedures Referred By Contact Refer red To Contact Urology Diagnoses Prostate cancer PROSTATE CANCER Mazin Mcqueen MD [facility] [address] [place] [id number] Referral ID Status Reason Start Date Expiration Date Visits V isits Requested Authorized [id number] Consult, Test 09/06/2017 03/08/2018 6 6 & [facility] PCP Updated and/or Approved Encounter Details Date Type Department Care Team Description 10/18/2017 Office Visit Hematology and Oncology Nabil Camargo, Prostate cancer at [facility] Alexsandra ross [facility] [place] [phone] UROLOGY [phone] [place], [place] [address] (Wo rk) Social History Tobacco [...] Sign Reading Time Taken Comments Blood Pressure 149/90 10/18/2017 8:30 AM EDT Pulse 56 10/18/2017 8:30 AM EDT Temperature 36.6 ??C (97.9 ??F) 10/18/2017 8:28 AM EDT Respiratory Rate 18 10/18/2017 8:30 AM EDT Oxygen Saturation 98% 10/18/2017 8:30 AM EDT Inhaled Oxygen Concentration - - Weight 88.7 kg (195 lb 8.8 oz) 10/18/2017 8:28 AM EDT Height 175 cm (5' 8.9) 10/18/2017 8:28 AM EDT Body Mass Index 28.96 10/18/2017 8:28 AM EDT documented in this encounter Patient Instructions Patient InstructionsNabil Camargo MD - 10/18/2017 9:25 AM EDT Prostatectomy Patient Instructions Instructions Prior to Surgery Please stop taking any over the counter supplements one week before surgery. If you are on any blood thinners such as: Coumadin, Plavix, Aspirin, or Xarelto PLEASE check with the Urology Clinic if you did not receive any instructions on discontinuing them prior to surgery. Day Prior to Surgery Please shower 24 hours before AND the night before surgery. Please use a Chlorhexidene based antiseptic soap such as Hibiclens. You can buy Hibiclens over the counter at your pharmacy without a prescription or you can obtain it from the [facility] Same day program on the day of your preoperative visit. Bowel Preparation ?? Purchase one Fleets enema and take it the evening before surgery. ?? Please take only clear liquids by mouth from noon the day before surgery. ?? Continue to drink plenty of clear liquids to remain well hydrated for the remainder of the day and evening ?? Please take nothing by mouth from 2 hours before the time you have been told to report to the hospital. If you have any questions please call the [facility] at or documented in this encounter Progress Notes Rosemarie Wilkinson RN - 10/18/2017 8:30 AM EDT Prostate IPSS and KATHERYN(Pt Entered): Today's answers and scores Prostate Scores and Responses 10/18/2017 Confidence, level - past 6 months High Penetration - past 6 months Almost always or always Penetration, maintain - past 6 months Almost always or always Erection, maintain - past 6 months Not difficult Sexual satisfaction - past 6 months Almost always or always Sexual Health in Men 24 Incomplete emptying Not at all Frequency Not at all Intermittency Not at all Urgency Not at all Weak Stream Not at all Straining Not at all Nocturia 1 time Quality of life Delighted Total IPSS Score 1 ( MILD LUTS) Nabil Camargo MD - 10/18/2017 8:30 AM EDT Patient Name: Amanuel Hussein Date of Service: 10/18/2017 Referring Provider: [place] [address] Primary Care Provider: Clara Wood MD HPI: Amanuel Hussein is a 62 y.o. 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 He was found to have an elevated PSA to 12 and underwent TRUS/PNBx on 08/06/2017 which found Sarah 4+4 prostate cancer as below: DIAGNOSIS CONSULTATION CASE Outside slide(s) labeled [id number], collection date 08/06/2017. A - Prostate, base [...] 4+3, involving 95% of a single core (Creston pattern 4 represents 60% of tumor). Perineural invasion is present. I - Prostate, mid left lateral, needle core biopsy: Prostatic adenocarcinoma, Grade Group 3, Sarah score 4+3, involving 90% of a single core (Sarah pattern 4 represents 60% of tumor). Perineural invasion is present. J - Prostate, mid left medial, needle core biopsy: Prostatic adenocarcinoma, Grade Group 3, Creston score 4+3, involving 60% of a single core (Sarah pattern 4 represents 70% of tumor). Perineural invasion is present. K - Prostate, apex left lateral, needle core biopsy: Prostatic adenocarcinoma, Grade Group 3, Creston score 4+3, involving 100% of a single core (Creston pattern 4 represents 70% of tumor). Perineural invasion is present. L - Prostate, apex left medial, needle core biopsy: Prostatic adenocarcinoma, Grade Group 3, Creston score 4+3, involving 100% of a single core (Sarah pattern 4 represents 60% of tumor). Perineural invasion is present. He is here to discuss treatment options. He has no family history of prostate cancer. Imagin09/04/2017 - mpMRI, no obvious PARAM / SVI / LAD, 33g prostate 09/04/2017 - Bone scan negative Prostate IPSS and KATHERYN(Pt Entered): last 5 values Prostate Today's Scores 10/18/2017 Sexual Health Inventory for Men 24 International Prostate Symptom Score 1 ( Mild LUTS) The patient's genitourinary history is otherwise negative for urologic issues, including recurrent UTI, nephrolithiasis and other urologic malignancies. The patient denies any associated changes in fevers, chills, nausea, vomiting, bowel or bladder symptoms, diarrhea or constipation. Prostate IPSS and KATHERYN(Pt Entered): last 5 values Prostate Today's Scores 10/18/2017 International Prostate Symptom Score 1 ( Mild LUTS) Appetite is good weight is stable. There is no bone pain. Past Medical History: Past Medical History: Diagnosis Date ??? GERD (gastroesophageal reflux disease) Past Surgical History: Lap paraesophageal hernia Family History: There is no family history of prostate cancer or other urologic malignancies. Social History: Quit smoking in 1984 Minimal EtOh Medications: Reviewed in EMR Allergies: Reviewed in EMR Systems review: HEENT: Denies problems with vision, hearing, runny nose, epistaxis, sore throat, hoarseness Cardiovascular: Denies Chest pain, palpitations, shortness of breath, ankle swelling, claudication Respiratory: Denies cough, phlegm, hemoptysis,wheeze, Gastrointestinal: Denies nausea, difficulty swallowing, vomiting, hematemesis, constipation, diarrhea, blood per rectum Neurological: Denies dizziness, double vision, headache, weakness of one side of the body or the other,sudden loss of vision in one eye, Bones and muscles: Denies bone pain, radiating pain, muscle weakness or sore ness. All other systems negative. Physical Exam: Vital Signs are reviewed. The patient appears healthy and in no distress. The skin is normal. Breathing is non-labored HR is normal AMI not repeated, Dr. Mcqueen felt a small left Examination of the extremities and neurological examination is grossly normal. Lab values are reviewed in the EMR and and are as noted in the history. X-rays Have been independently reviewed and are as noted in the history. Impression: #1: Unfavorable intermediate risk prostate cancer (Sarah 4+3, PSA 12, cT2a), 33cc gland #2: KATHERYN 24 and IPSS 1. #3: Minimal co-morbidity Plan: # Robot assisted laparoscopic radical prostatectomy, bilateral PLND, we discussed that we will likely have to sacrifice left nerve. I had a very lengthy and thorough discussion with Amanuel Hussein regarding the characteristics of his cancer and the risks, benefits, rationale, implications and alternatives of the various management options. I discouraged him from considering primary androgen deprivation therapy since it is not curative andis associated with multiple side effects, such as hot flashes, osteoporosis, decreased libido, erectile dysfunction, and a potentially higher risk of diabetes and heart disease. We spent the bulk of our time discussing three major options, which include radical prostatectomy, radiation therapy, and active surveillance with delayed curative intent. We discussed the rationale of radical prostatectomy performed via either a robotic or open technique. The concepts of the surgery are removal of the pelvic lymph nodes and prostate, with nerve-sparing as deemed appropriate. These have both diagnostic and therapeutic intent. When performed robotically it is through six small incisions and a 2.5 - 4 hour surgery associated with minimal blood loss, an overnight hospital stay, and 5-7 days of Lin catheterization. Major risks of the surgery are rare but do include bleeding, infection, adjacent organ injury, lymphocele, positive margins, severe pain and standard operative risks such as myocardial infarction, stroke, DVT, pneumonia, PE and even a 0.2% chance of . We also discussed urinary incontinence following surgery. Approximately 10-20% of men will have nearly complete control of their urination when the catheter is removed, the median time to recovery is approximately 3-4 months but can take up to 12-18 months. Based on national data, approximately 90% of men will have control good urinary control at 2 years (may require safety pad etc but are generally happy with voiding). . In regards to sexual function, I explained the median time to recovery of functional erections is 6-8 months but can take up to 18 months. At 18 months following surgery, approximately 75% of men with quality erections prior to surgery who undergo aggressive bilateral nerve-sparing will have functional erections with or without medical therapy. Following surgery the PSA is expected to remain undetectable but if it does rise there is the possibility of salvage curative radiation therapy, if deemed appropriate. We also discussed the rationale of radiation therapy, which can be delivered via brachytherapy, external beam radiation therapy, or proton beam therapy. There is an excellent track record of success but can be associated with potential side effects which include urinary urgency, frequency, urethral stricture as well as the potential for erectile dysfunction and rectal irritation or frequency of bowelmovements. I explained there is an approximately 2% chance of serious bladder or rectal toxicity as well as a very low risk of inducing a secondary malignancy. The potential downside of radiation is the lack of complete pathologic review and lack of reliable salvage curative options. Active surveillance was described as a reasonable management strategy which has been associated withexcellent short and intermediate term cancer control. The concept is to closely follow the cancer and intervene as needed at any meaningful sign of increased tumor volume or increased grade. Several studies have suggested delayed treatment has been associated with similar oncologic outcomes to immediate treatment. Approximately 5% of patients per year require an intervention and discontinue active surveillance. I explained there is consistent data showing a 98% cancer-specific survival at 10 years following the diagnosis and in Very Low Risk patients there is less than 1% risk of progression to metastatic disease at 15 years but adjunct faculty for medical terminology data beyond this is not currently available. He understandsthere is a low but real chance of missing his window of curative opportunity. Lastly we discussed the rationale of a re- biopsy of his prostate if he is interested in this approach since approximately 20-30% of patients will have higher grade or higher volume disease which exclude them from consideringactive surveillance. At the completion of our discussion, multiple questions were answered to the best of my ability. He appears to be very well informed about his cancer as well as the options. I explained to him there isno cabrales in making a decision, and the most important thing is that he feels comfortable and educatedregarding his options and ultimate choice. He is leaning towards surgery . I have encouraged him to meet with radiation oncology in regards to radiation treatment options however he declines. I answered all the patient's questions to the best of my ability and he is satisfied with the plan as outlined above. I will be in touch with him regarding the above details and he knows that he can contact me at any time with any questions or concerns. Thank you again for allowing me to participate in the care of your patient. Feel free to contact me should the need arise. I will be sure to keep you informed of any changes. documented in this encounter Plan of Treatment Upcoming Encounters Date Type Specialty Care Team Description 01/19/2022 Office Visit Radiation Oncology Clover Covarrubias APRN [facility] RADIATION [place]COL[place], [place] [address] (Wo rk) 12/04/2022 Hospital Encounter Gastroenterology Real Jones MD [facility] GASTROENTEROLOGY DEPT. [place], [place] [address] (Wo neelam) Scheduled Procedures Name Priority Associated Diagnoses Date/Time COLONOSCOPY, DIAGNOSTIC 10 yr f/up documented as of this encounter Procedures Procedure Name Priority Date/Time Associated Diagnosis Comme nts LAPAROSCOPIC Routine 10/18/2017 9:25 AM Prostate cancer PROSTATECTOMY-UROL\ROBOTI EDT CS ASSISTED documented in this encounter Results (ABNORMAL) Comprehensive metabolic panel (non-fasting) (10/18/2017 11:46 AM EDT) athologist Signature Glucose Lvl 117 65 - 199 [facility] mg/dL [facility] Comment: Diabetes: >=200 mg/dL plus symp toms BUN 14 10 - 20 mg/dL [facility] Creatinine 1.03 0.80 - 1.50 mg/dL [facility] Sodium 143 135 - 145 mmol/L [facility] Potassium 3.9 3.5 - 5.0 mmol/L [facility] Comment: Please note: ??Patients with WBC >100,00 0 may have falsely elevated Potassium levels. ??For accurate Potassium quantif ication in these patients send serum separator tube (gold top) for subsequent determinations. ??Contact the Clinical Chemistry Laboratory if there are any qu estions. Chloride 100 98 - 107 mmol/L [facility] CO2 25 22 - 31 mmol/L [facility] Anion Gap 18 (H) 5 - 15 mmol/L [facility] Calcium 9.1 8.5 - 10.5 mg/dL [facility] Total Protein 7.3 6.1 - 8.0 gm/dL [facility] Albumin 4.4 3.2 - 5.2 gm/dL [facility] AST 24 0 - 39 unit/L [facility] ALT 21 0 - 55 unit/L [facility] Alk Phos 68 40 - 120 unit/L [facility] Total Bilirubin 0.9 0.2 - 1.3 mg/dL [facility] Estimated GFR 77 >=60 mL/min/1.73 m?? [facility] Comment: The eGFR was calculated using the CKD-EP I equation. As with all creatinine based estimates of kidney function, eGFR values calculated with the CKD-EPI equation are not accurate in patients wi th acute kidney failure, extremes of body mass or the acutely ill. [email or web address] eGFR 89 >=60 mL/min/1.73 m?? [facility] Comment: The eGFR was calculated using the CKD-EP I equation. As with all creatinine based estimates of kidney function, eGFR values calculated with the CKD-EPI equation are not accurate in patients wi th acute kidney failure, extremes of body mass or the acutely ill. [email or web address] Specimen Anatomical Collection Method Collection Time Receive d Time (Source) Location / / Volume Laterality Blood specimen 10/18/2017 11:46 8 (specimen) AM EDT 12:50 PM EDT Resulting Agency Comment Spec In Lab Nabil Camargo MD CHEMISTRY ORDERABLES Performing Organization Address City/State/[place] [address] documented in this encounter Visit Diagnoses Diagnosis Prostate cancer Malignant neoplasm of prostate documented in this encounter Care Teams Learning Support Resource Room Teacher Relationship Specialty Start Date End Date Clara Wood MD PCP - General Family Medicine 01/26/17 [address] [place] [address] documented as of this encounter
--- OUTSIDE RECORDS SUMMARY | 2021-12-30 01:32 | XMS_ITS | Encounter Summary ---
:1955 Author Organization [facility] [place] [address] Care Team Providers Name Role Phone Clara Wood MD Primary Care Provider Encounter Details Date Type Department Care Team Description 09/24/2018 Laboratory Appointment Lab 3L [facility] [place] [id number] Social History Tobacco Use Types Packs/Day Years [...] Office Visit Radiation Oncology Clover Covarrubias APRN [facility] RADIATION ONCOLO [address] [place], [place] [address] (Wo rk) 12/04/2022 Hospital Encounter Gastroenterology Real Jones MD [facility] GASTROENTEROLOGY DEPT. [place], [place] [address] (Wo rk) Scheduled Procedures Name Priority Associated Diagnoses Date/Time COLONOSCOPY, DIAGNOSTIC 10 yr f/up documented as of this encounter Procedures Procedure Name Priority Date/Time Associated Diagnosis Comme nts PSA STAT 09/24/2018 8:39 AM Malignant neoplasm Res ults for this (ULTRASENSITIVE) EDT of prostate procedure a re in the results section. documented in this encounter Results PSA (09/24/2018 8:39 AM EDT) athologist Signature PSA Total 0.02 0.00 - [facility] (Ultrasensitiv 4.00 ng/mL [facility] Specimen Anatomical Collection Method Collection Time Receive d Time (Source) Location / / Volume Laterality Blood specimen 09/24/2018 8:39 AM 019 8:43 (specimen) EDT AM EDT Resulting Agency Comment Spec In Lab Nabil Camargo MD CHEMISTRY ORDERABLES Performing Organization Address City/State/[place] [address] documented in this encounter Visit Diagnoses Diagnosis Malignant neoplasm of prostate documented in this encounter Care Teams Respiratory Therapist Relationship Specialty Start Date End Date Clara Wood MD PCP - General Family Medicine 01/26/17 [address] [place] [address] documented as of this encounter
--- OUTSIDE RECORDS SUMMARY | 2021-12-30 01:32 | XMS_ITS | Encounter Summary ---
:1955 Author Organization [facility] [place] [address] Care Team Providers Name Role Phone Clara Wood MD Primary Care Provider Encounter Details Date Type Department Care Team Description 10/19/2017 [place]phone [place] [facility] Nabil Camargo MD [facility] [phone] UROLOGY [phone] [place] [id number] (Wo rk) Social History Tobacco Use Types [...] this encounter Miscellaneous Notes Telephone Encounter - Estelle Palmer - 10/19/2017 8:28 AM EDT LM to schedule voiding trial and FUV with Dr. Camargo 7-10 days post-op surgery (12/07) documented in this encounter Plan of Treatment Upcoming Encounters Date Type Specialty Care Team Description 01/19/2022 Office Visit Radiation Oncology Clover Covarrubias APRN [facility] RADIATION [place], [place] [address] (Wo rk) 12/04/2022 Hospital Encounter Gastroenterology Real Jones MD [facility] GASTROENTEROLOGY DEPT. [place], [place] [address] (Wo rk) Scheduled Procedures Name Priority Associated Diagnoses Date/Time COLONOSCOPY, DIAGNOSTIC 10 yr f/up documented as of this encounter Visit Diagnoses Not on filedocumented in this encounter Care Teams Machine Bander And Cellophaner Helper Relationship Specialty Start Date End Date Clara Wood MD PCP - General Family Medicine 01/26/17 [address] [place] [address] documented as of this encounter
--- OUTSIDE RECORDS SUMMARY | 2021-12-30 01:32 | XMS_ITS | Encounter Summary ---
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 No t asked Comment: rarely 02/28/2017 Sex Assigned at Date Recorded Not on file documented as of this encounter Last Filed Vital Signs Vital Sign Reading Time Taken Comments Blood Pressure 143/85 09/14/2017 8:58 AM EDT Pulse 64 09/14/2017 8:58 AM EDT Temperature 36.6 ??C (97.9 ??F) 09/14/2017 8:58 AM EDT Respiratory Rate 18 09/14/2017 8:58 AM EDT Oxygen Saturation 98% 09/14/2017 8:58 AM EDT Inhaled Oxygen Concentration - - Weight 89.4 kg (197 lb) 09/14/2017 8:58 AM EDT Height 175 cm (5' 8.9) 09/14/2017 8:58 AM EDT Body Mass Index 29.18 09/14/2017 8:58 AM EDT documented in this encounter Patient Instructions Patient InstructionsMarylou Sands RN - 09/14/2017 9:00 AM EDT Thank you for visiting Dr. Ortiz in clinic 09/14/17 Dr. Ortiz would like to see you back in clinic in 6 months with a recent chest x-ray, he would also like you to have and EGD for Eugenio's surveillance with GI at that time. You will receive a letter in the mail to schedule this appointment. ?? Exercise each day for 30 minutes or longer. Daily aerobic exercise for at least 30 minutes will help improve your endurance and improve the breathing capacity of your lungs. This means that you are breathing hard, your heart is beating fast and that you are sweating. Examples of this include walking, biking, swimming, and using a treadmill or stationary bike. Please call Thoracic surgery at with any questions or concerns. documented in this encounter Progress Notes Al Ortiz MD - 09/14/2017 9:00 AM EDT Thoracic Surgery Attending Outpatient Consultation Note Al Ortiz MD [place] [address] ?? Today, 09/14/2017, I saw . Amanuel Hussein in follow-up from his robotic paraesophageal hernia repair on 02/28/17. He was last seen 03/16/17 and at that time was doing well. He was discharged after an uneventful postoperative course. Today, he is breathing comfortably and denies fevers. He is eatinga regular diet with no difficulty. He has no symptoms of reflux or regurgitation. He denies weight loss. Unfortunately, he was recently diagnosed with prostate cancer and is currently under staging evaluation for this. He otherwise has no complaints. ?? Eckardt Scoring Weight loss (kg) Dysphagia Retrosternal pain Regurgitation 0 None None None None 1 < 5 Occassional Occassional Occassional 2 5-10 Daily Daily Daily 3 > 10 Each meal Each meal Each meal ?? Total Score = 0 ?? On physical examination today, his BP 143/85 (Patient Position: Sitting) Pulse 64 Temp 36.6 ??C (97.9 ??F) (Temporal) Resp 18 Ht 175 cm (5' 8.9) Wt 89.4 kg (197 lb) SpO2 98% BMI 29.18 kg/m2 In general, he is in no acute distress. His pupils are reactive. His lungs are clear to auscultation bilaterally. His heart has a regular rate with no murmurs. His incisions are healed with no evidence of hernia. His abdomen is soft and nontender. His extremities are warm with no edema. Neurologically, he is grossly intact. ?? Today's Barium Swallow study, which I have personally reviewed shows: The esophagus had a normal appearance. There is retained liquid in the stomach and the gastric foldswere thickened. Clinical correlation is recommended and if indicated further evaluation should be performed. Unexpected finding. ?? In summary, Mr. 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 He is off anti-acid medications for the last 3 months. He has no reflux symptoms or heart burn. I think the thickening that is mentioned on the swallow study is likely related to the wrap and does not require further investigation at this time. I would like to see him back in 6 months to ensure he is still doing well. We will obtain a CXR at that time. This wasscheduled today. ?? He will also see Dr. Doyle from GI in about 6 months for an EGD for Latif's surveillance. He is tentatively scheduled for 02/25/2018. He knows to call my office in the interim if there are issues or concerns. ?? Al Ortiz MD 09/14/2017 documented in this encounter Plan of Treatment Upcoming Encounters Date Type Specialty Care Team Description 01/19/2022 Office Visit Radiation Oncology Satish Clover Amber, DEACON [facility] RADIATION ONCJENNIFER [address]Y [place], [place] [address] (Wo rk) 12/04/2022 Hospital Encounter Gastroenterology Real Jones MD [facility] GASTROENTEROLOGY DEPT. [place], [place] [address] (Wo rk) Scheduled Procedures Name Priority Associated Diagnoses Date/Time COLONOSCOPY, DIAGNOSTIC 10 yr f/up documented as of this encounter Results XR Chest PA & Lateral (Generic) (03/15/2018 8:01 AM EST) Anatomical Region Laterality Modality Chest N/A Digital Radiography Specimen (Source) Anatomical Location Collection Method / Collectio n Time Received Time / Laterality Volume Impressions 03/15/2018 8:12 AM EST No acute cardiopulmonary process. I have personally reviewed the image(s) and the residents interpretation and agree with the findings, Roc dean 03/15/2018 8:12 AM Narrative 03/15/2018 8:12 AM EST EXAMINATION: XR CHEST PA AND LATERAL (GENERIC) CLINICAL HISTORY: s/p paraesophageal her nessa repair 02/2017 TECHNIQUE: PA and lateral views of the chest COMPARISON: Chest radiograph 03/16/2017 FINDINGS: Lungs are clear. Cardiomediastinal silho uette, haim, and pulmonary vascular markings are within normal limits. No pn eumothorax or pleural effusion. ??. Procedure Note Roc Alfaro MD - 03/15/2018Formatt ing of this note might be different from the original. EXAMINATION: XR CHEST PA AND LATERAL (GE NERIC) CLINICAL HISTORY: s/p paraesophageal her nessa repair 02/2017 TECHNIQUE: PA and lateral views of the chest COMPARISON: Chest radiograph 03/16/2017 FINDINGS: Lungs are clear. Cardiomediastinal silho uette, haim, and pulmonary vascular markings are within normal limits. No pn eumothorax or pleural effusion. . IMPRESSION No acute cardiopulmonary process. 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
--- OUTSIDE RECORDS SUMMARY | 2021-12-30 01:32 | XMS_ITS | Encounter Summary ---
:1955 Author Organization [facility] [place] [address] Care Team Providers Name Role Phone Clara Wood MD Primary Care Provider Encounter Details Date Type Department Care Team Description 10/15/2017 Hospital [place] [address] Social History Tobacco Use Types Packs/Day [...] Oncology Clover Covarrubias APRN [facility] RADIATION ONCJENNIFER GY [place], [place] [address] (Wo rk) 12/04/2022 Hospital Encounter Gastroenterology Real Jones MD [facility] GASTROENTEROLOGY DEPT. [place], [place] [address] (Wo rk) Scheduled Procedures Name Priority Associated Diagnoses Date/Time COLONOSCOPY, DIAGNOSTIC 10 yr f/up documented as of this encounter Procedures Procedure Name Priority Date/Time Associated Diagnosis Comme [facility] SURGICAL PATHOLOGY Routine 10/15/2017 9:02 AM Res ults for this REPORT EDT procedure are i n the results section. documented in this encounter Results Surgical Pathology Report (10/15/2017 9:02 AM EDT) Component Value Ref Test Analysis Performed At [facility] gist Range Method Time Signature Surgical [id number] ? Location: [facility] Pathology [place] Report The signing pathologist has (i) examined the relevant preparation(s) for the [facility] specimen(s) and (ii) rendered or confirmed the diagnosis(es) . HOSPITAL LABORATORY . ?Surgic al Pathology DIAGNOSIS CONSULTATION CASE Outside slide(s) labeled [id number], collection date 08/07/19 18. A - Prostate, base right lateral, needle [...] core biopsy: Prostatic adenocarcinoma, Grade Group 3, [place] score 4+3, involving 70% of fragmented core ([place] patter n 4 represents 60% of tumor). Perineural invasion is present. Suspicious for extraprostatic extension. H - Prostate, base left medial, needle core biopsy: Prostatic adenocarcinoma, Grade Group 3, [place] score 4+3, involving 95% of a single core ([place] pattern 4 represen ts 60% of tumor). Perineural invasion is present. I - Prostate, mid left lateral, needle core biopsy: Prostatic adenocarcinoma, Grade Group 3, [place] score 4+3, involving 90% of a single core (Sarah pattern 4 represen ts 60% of tumor). Perineural invasion is present. J - Prostate, mid left medial, needle core biopsy: Prostatic adenocarcinoma, Grade Group 3, Sarah score 4+3, involving 60% of a single core ([place] pattern 4 represen ts 70% of tumor). Perineural invasion is present. K - Prostate, apex left lateral, needle core biopsy: Prostatic adenocarcinoma, Grade Group 3, Sarah score 4+3, involving 100% of a single core (Sarah pattern 4 rep resents 70% of tumor). Perineural invasion is present. L - Prostate, apex left medial, needle core biopsy: Prostatic adenocarcinoma, Grade Group 3, Sarah score 4+3, involving 100% of a single core (Sarah pattern 4 rep resents 60% of tumor). Perineural invasion is present. Electronically signed by: ??Louisa Gee MD Verified: ??10/15/2017 ?Pathologist Performed at: ??-[facility] Dept. of Pathology, [place], [place] . ADDITIONAL STUDIES [id number] A selected slides CLINICAL INFORMATION CONSULTATION CASE A - 25 slide(s) labeled [id number], collection date 8. [id number] Report to: [facility] Surgical Pathology Department [facility], [facility], 2nd Floor [address] [place] [address] ??[id number] [facility] ([facility]) pathology slide(s) are reviewed. ??Refer to Diagnosis and Specimen Submitted for specific case infor mation. For the full text of the [facility] report(s) please refer t o Non- Documentation Pathology in the electronic health record (eDH). Specimen (Source) Anatomical Collection Method Collection Time Re ceived Time Location / / Volume Laterality 10/15/2017 9:02 AM EDT Nabil Camargo MD PATHOLOGY/CYTOLOGY ORDERABLE S Performing Organization Address City/State/ZIP Code Phon e Number [place], [place] [id number] [place] [address] documented in this encounter Visit Diagnoses Not on filedocumented in this encounter Care Teams Mystery Shopper Relationship Specialty Start Date End Date Clara Wood MD PCP - General Family Medicine 01/26/17 [address] [place] [address] documented as of this encounter
--- OUTSIDE RECORDS SUMMARY | 2021-12-30 01:32 | XMS_ITS | Encounter Summary ---
:1955 Author Organization [facility] [place] [address] Care Team Providers Name Role Phone Clara Wood MD Primary Care Provider Encounter Details Date Type Department Care Team Description 12/25/2017 Telephone Urology Aileen Amaya MD [facility] [place] [address] UROLOGY DEPT [phone] [place], [place] [address] (Wo rk) Social History Tobacco [...] this encounter Miscellaneous Notes Telephone Encounter - Aileen Amaya MD - 12/25/2017 9:33 AM EDT TELEPHONE NOTE Date of call: 12/25/17 Time of call: 9:33 AM Caller: Amanuel Hussein Amanuel Duncan Jovita calls because he had a temp to 100 F this AM. He is eating, drinking, and voiding well. No other issues. He took some Tylenol. I told him to keep monitoring for now and call us backif he does not feel well or his temp gets to 101 F. He understands. documented in this encounter Plan of Treatment Upcoming Encounters Date Type Specialty Care Team Description 01/19/2022 Office Visit Radiation Oncology Clover Covarrubias, [facility] RADIATION ONCOLO [place], [place] [address] (Wo rk) 12/04/2022 Hospital Encounter Gastroenterology Real Jones MD [facility] GASTROENTEROLOGY DEPT. [place], [place] [address] (Wo rk) Scheduled Procedures Name Priority Associated Diagnoses Date/Time COLONOSCOPY, DIAGNOSTIC 10 yr f/up documented as of this encounter Visit Diagnoses Not on filedocumented in this encounter Care Teams Male Infertility Specialist Relationship Specialty Start Date End Date Clara Wood MD PCP - General Family Medicine 01/26/17 [address] [place] [address] documented as of this encounter
--- OUTSIDE RECORDS SUMMARY | 2021-12-30 01:32 | XMS_ITS | Encounter Summary ---
:1955 Author Organization [facility] [place] [address] Care Team Providers Name Role Phone Clara Wood MD Primary Care Provider Encounter Details Date Type Department Care Team Description 12/17/2017 Office Visit [facility]rology [place] [facility] Nabil Camargo Malignant neoplasm of [facility] MD [place] [address] UROLOGY [phone] [place], [place] [address] (Wo rk) Social History Tobacco [...] Sign Reading Time Taken Comments Blood Pressure 158/91 12/17/2017 9:31 AM EDT Pulse 65 12/17/2017 9:31 AM EDT Temperature 36.6 ??C (97.8 ??F) 12/17/2017 9:31 AM EDT Respiratory Rate - - Oxygen Saturation 98% 12/17/2017 9:31 AM EDT Inhaled Oxygen Concentration - - Weight - - Height - - Body Mass Index - - documented in this encounter Progress Notes Nabil Camargo MD - 12/17/2017 9:40 AM EDT Urologic Oncology Clinic Note Date of Service: December 17, 2017 Name: Amanuel Hussein : 1955 CC: Prostate [...] Moving bowels. No fevers / chills. Some perineal pain with sitting. Past Medical History: Diagnosis Date ??? GERD (gastroesophageal reflux disease) ??? Prostate cancer 12/07/2017 Social History Social History ??? Marital status: Spouse name: N/A ??? Number of children: N/A ??? Years of education: N/A Occupational History ??? Not on file. Social History Main Topics ??? Smoking status: Former Smoker Packs/day: 1.50 Years: 20.00 Types: Cigarettes Quit date: 1981 ??? Smokeless tobacco: Never Used ??? Alcohol use Yes Comment: rarely ??? Drug use: No ??? Sexual activity: Not on file Other Topics Concern ??? Not on file Social History Narrative Physical Exam: Vital Signs: BP (!) 158/91 (BP Location (NBP): Left arm, Patient Position: Sitting, BP Cuff Sizes: Adult (25-34 cm)) Pulse 65 Temp 36.6 ??C (97.8 ??F) (Oral) SpO2 98% General: No acute distress Lungs: Unlabored breathing Abdomen: Soft, nontender, nondistended; surgical incisions normal appearing Back: No spinal or CVA tenderness Extremities: Without edema Assessment: # Prostate cancer, pT3aN0, Grade Group 2, Margin limited (<3mm) anterior apex. Sarah 3 at margin s/p L>R NS RALP / PLND 12/07/2017 Plan: # q3 mo PSA x year 1, then q6 mo x year 2, then annually # Reinforced Kegel excercises We discussed his pathology result in detail. We discussed the role of adjuvant radiotherapy in the setting of adverse pathology T3a. Based on his very small unifocal positive margin and primarily low grade disease, I recommended a watchful waiting approach with consideration of early salvage based on PSA detectability. We reviewed the rationale for this including avoiding the morbidity of RT unless it becomes clearer that he would benefit from it. I reinforced Kegel exercises and we reviewed the natural history of voiding symptoms post prostatectomy. documented in this encounter Plan of Treatment Upcoming Encounters Date Type Specialty Care Team Description 01/19/2022 Office Visit Radiation Oncology Clover Covarrubias APRN [facility] RADIATION ONCOLO [address] [place], [place] [address] (Wo rk) 12/04/2022 Hospital Encounter Gastroenterology Real Jones MD [facility] GASTROENTEROLOGY DEPT. [place], [place] [address] (Wo rk) Scheduled Procedures Name Priority Associated Diagnoses Date/Time COLONOSCOPY, DIAGNOSTIC 10 yr f/up documented as of this encounter Results PSA (02/25/2018 9:04 AM EST) P athologist Signature PSA Total <0.01 0.[address] - [facility] (Ultrasensitiv 4.00 ng/mL [facility] LABORATORY Specimen Anatomical Collection Method Collection Time Receive d Time (Source) Location / / Volume Laterality Blood specimen 02/25/2018 9:04 AM 018 9:22 (specimen) EST AM EST Resulting Agency Comment Spec In Lab Nabil Camargo MD CHEMISTRY ORDERABLES Performing Organization Address City/State/ZIP [place] [address] documented in this encounter Visit Diagnoses Diagnosis Malignant neoplasm of prostate documented in this encounter Care Teams Social Work Professor Relationship Specialty Start Date End Date Clara Wood MD PCP - General Family Medicine 01/26/17 [address] [place] [address] documented as of this encounter
--- OUTSIDE RECORDS SUMMARY | 2021-12-30 01:32 | XMS_ITS | Encounter Summary ---
:1955 Author Organization [facility] [place] [address] Care Team Providers Name Role Phone Clara Wood MD Primary Care Provider Encounter Details Date Type Department Care Team Description 05/30/2018 Office [place] [facility] Nabil Camargo Malignant neoplasm of [facility] MD [place] [address] UROLOGY [phone] [place], [place] [address] (Wo rk) Social History Tobacco [...] Sign Reading Time Taken Comments Blood Pressure 149/94 05/30/2018 2:18 PM EST Pulse 69 05/30/2018 2:18 PM EST Temperature 36.8 ??C (98.3 ??F) 05/30/2018 2:18 PM EST Respiratory Rate - - Oxygen Saturation - - Inhaled Oxygen Concentration - - Weight - - Height - - Body Mass Index - - documented in this encounter Progress Notes Nabil Camargo MD - 05/30/2018 3:00 PM EST Urologic Oncology Clinic Note Date of Service: May 30, 2018 Name: Amanuel Hussein : 1955 CC: Prostate cancer HPI: Amanuel Hussein is a 63 y.o. old male with [...] essentially resolved. 1PPD and not often wet. Has persistent urge but it is improved. No erections yet. Past Medical History: Diagnosis [...] Last attempt to quit: 1982 Years since quittin.2 ??? Smokeless tobacco: Never Used Substance and Sexual Activity ??? Alcohol use: Yes Comment: rarely ??? Drug use: No ??? Sexual activity: Not on file Other Topics Concern ??? Not on file Social History Narrative ??? Not on file Physical Exam: Vital Signs: BP (!) 149/94 Pulse 69 Temp 36.8 ??C (98.3 ??F) General: No acute distress Lungs: Unlabored breathing [...] Visit Radiation Oncology Clover Covarrubias APRN [facility] RADIATION ONCOLO [place], [place] [address] (Wo rk) 12/04/2022 Hospital Encounter Gastroenterology Real Jones MD [facility] GASTROENTEROLOGY DEPT. [place], [place] [address] (Wo rk) Scheduled Procedures Name Priority Associated Diagnoses Date/Time COLONOSCOPY, DIAGNOSTIC 10 yr f/up documented as of this encounter Results PSA (09/24/2018 8:39 AM EDT) P athologist Signature PSA Total 0.02 0.00 - [facility] (Ultrasensitiv 4.00 ng/mL [facility] LABORATORY Specimen Anatomical Collection Method Collection Time Receive d Time (Source) Location / / Volume Laterality Blood specimen 09/24/2018 8:39 AM 019 8:43 (specimen) EDT AM EDT Resulting Agency Comment Spec In Lab Nabil Camargo MD CHEMISTRY ORDERABLES Performing Organization Address City/State/[place] [address] documented in this encounter Visit Diagnoses Diagnosis Malignant neoplasm of prostate documented in this encounter Care Teams Terminal Block Assembler Relationship Specialty Start Date End Date Clara Wood MD PCP - General Family Medicine 01/26/17 [address] [place] [address] documented as of this encounter
--- OUTSIDE RECORDS SUMMARY | 2021-12-30 01:32 | XMS_ITS | Encounter Summary ---
:1955 Author Organization [facility] [place] [address] Care Team Providers Name Role Phone Clara Wood MD Primary Care Provider Encounter Details Date Type Department Care Team Description 12/10/2018 Laboratory Appointment Lab 3L [facility] [place] [phone] Social History Tobacco Use Types Packs/Day Years [...] Clover Covarrubias APRN [facility] ER RADIATION ONCOLO [address]Y [place], [place] [address] (Wo rk) 12/04/2022 Hospital Encounter Gastroenterology Real Jones MD [facility] ER GASTROENTEROLOGY DEPT. [place], [place] [address] (Wo rk) Scheduled Procedures Name Priority Associated Diagnoses Date/Time COLONOSCOPY, DIAGNOSTIC 10 yr f/up documented as of this encounter Procedures Procedure Name Priority Date/Time Associated Diagnosis Comme nts HC PROSTATE Routine 12/10/2018 9:37 AM Malignant neoplasm Res ults for this SPECIFIC ANTIGEN EDT of prostate procedure a re in the results section. documented in this encounter Results PSA (12/10/2018 9:37 AM EDT) athologist Signature PSA Total 0.02 0.[address] - [facility] (Ultrasensitiv 4.00 ng/mL [facility] LABORATORY Specimen Anatomical Collection Method Collection Time Receive d Time (Source) Location / / Volume Laterality Blood specimen 12/10/2018 9:37 AM 019 9:55 (specimen) EDT AM EDT Resulting Agency Comment Spec In Lab Nabil Camargo MD CHEMISTRY ORDERABLES Performing Organization Address City/State/[place] [address] documented in this encounter Visit Diagnoses Diagnosis Malignant neoplasm of prostate documented in this encounter Care Teams Client Support Professional Relationship Specialty Start Date End Date Clara Wood MD PCP - General Family Medicine 01/26/17 [address] [place] [address] documented as of this encounter
--- OUTSIDE RECORDS SUMMARY | 2021-12-30 01:32 | XMS_ITS | Encounter Summary ---
:1955 Author Organization [facility] [place] [address] Care Team Providers Name Role Phone Clara Wood MD Primary Care Provider Encounter Details Date Type Department Care Team Description 09/24/2018 Office Visit Urology at [facility] [place] Nabil Camargo Malignant neoplasm of [facility] MD [place] [address] UROLOGY [phone] [place], [place] [address] (Wo rk) Social History Tobacco [...] Sign Reading Time Taken Comments Blood Pressure 145/94 09/24/2018 9:33 AM EDT Pulse 65 09/24/2018 9:33 AM EDT Temperature - - Respiratory Rate - - Oxygen Saturation - - Inhaled Oxygen Concentration - - Weight - - Height - - Body Mass Index - - documented in this encounter Progress Notes Nabil Camargo MD - 09/24/2018 10:00 AM EDT Urologic Oncology Clinic Note Date of Service: September 24, 2018 Name: Amanuel Lomax : 1955 CC: Prostate cancer HPI: Amanuel Lomax is a 63 y.o. old male with a history of intermediate risk prostate cancerstatus post L>R nerve sparing robotic-assisted laparoscopic prostatectomy with bilateral PLND on 12/07/2017. Final pathology: pT3aN0, Grade Group 2, Margin + limited (<3mm) anterior apex. Winfred 3 at margin. Overall, he is doing quite well. Good pain control. No chest pain, palpitations, SOB. No nausea / vomiting. Moving bowels. No fevers / chills. PRIMITIVO essentially resolved. 1PPD and not often wet. UUI as impreoved. No erections yet. Past Medical History: Diagnosis [...] Last attempt to quit: 1982 Years since quittin.5 ??? Smokeless tobacco: Never Used Substance and Sexual Activity ??? Alcohol use: Yes Comment: rarely ??? Drug use: No ??? Sexual activity: Not on file Lifestyle ??? Physical activity: Days per week: Not on file Minutes per session: Not on file ??? Stress: Not on file Relationships ??? Social connections: Talks on phone: Not on file Gets together: Not on file Attends mosque service: Not on file Active member of [...] file Physical Exam: Vital Signs: BP (!) 145/94 Pulse 65 General: No acute distress Lungs: Unlabored breathing PSA Since surgery 02/2018 - <0.01 05/2018 - <0.01 09/2018 - 0.02 Assessment: # Prostate cancer, pT3aN0, Grade Group 2, Margin limited (<3mm) anterior apex. Winfred 3 at margin s/p L>R NS RALP / PLND 12/07/2017 with low detectable PSA Plan: # PSA in two months, will trend but if concerning velocity we will plan to refer for salvage RT # Reinforced Kegel exercises # Discussed PDE5-I, he is not interested at this time 20 minutes spent in counseling and coordination of care documented in this encounter Plan of Treatment Upcoming Encounters Date Type Specialty Care Team Description 01/19/2022 Office Visit Radiation Oncology Clover Covarrubias APRN [facility] RADIATION ONCOLO GY [place], [place] [address] (Kalpesh richter) 12/04/2022 Hospital Encounter Gastroenterology Real Jones MD [facility] GASTROENTEROLOGY DEPT. [place], [place] [address] (Kalpesh richter) Scheduled Procedures Name Priority Associated Diagnoses Date/Time COLONOSCOPY, DIAGNOSTIC 10 yr f/up documented as of this encounter Results PSA (12/10/2018 9:37 AM EDT) athologist Signature PSA Total 0.02 0.00 - ALEXANDRA MIGUELINA (Ultrasensitiv 4.00 ng/mL [facility] LABORATORY Specimen Anatomical Collection Method Collection Time Receive d Time (Source) Location / / Volume Laterality Blood specimen 12/10/2018 9:37 AM 019 9:55 (specimen) EDT AM EDT Resulting Agency Comment Spec In Lab Nabil Camargo MD CHEMISTRY ORDERABLES Performing Organization Address City/State/ZIP Code Phon e Number [place] [phone] [facility] [address] documented in this encounter Visit Diagnoses Diagnosis Malignant neoplasm of prostate documented in this encounter Care Teams Contact Lens Technician Relationship Specialty Start Date End Date Clara Wood MD PCP - General Family Medicine 01/26/17 Ebony [address]EN [address] [place] [address] documented as of this encounter
--- OUTSIDE RECORDS SUMMARY | 2021-12-30 01:32 | XMS_ITS | Encounter Summary ---
:1955 Author Organization [facility] [place] [address] Care Team Providers Name Role Phone Clara Wood MD Primary Care Provider Reason for Visit Auth/Cert Specialty Diagnoses / Procedures Referred By Contact Refer red To Contact Diagnoses Prostate Cancer Procedures PRO LAP, PROSTATECTOMY, RADICAL, W/NERVE SPARE LAPAROSCOPIC PROSTATECTOMY, ROBOTICS ASSISTED (WRVU 21.36) Referral ID Status Reason Start Date Expiration Date Visits Requ ested Visits Authorized [id number] 1 1 Encounter Details Date Type Department Care Team Description 12/07/2017 Surgery Main Operating Room Nabil Camargo, LAPAROSCOPIC Letha Frausto MD PROSTATECTOMY, ROBOTICS [facility] ASSISTED (WRVU 21.36) [facility] [place] [address] [place] [id number] [phone] (Wo rk) Social History Tobacco Use Types [...] Sign Reading Time Taken Comments Blood Pressure 154/92 12/07/2017 12:56 PM EDT Pulse 61 12/07/2017 12:56 PM EDT Temperature 36.5 ??C (97.7 ??F) 12/07/2017 12:56 PM EDT Respiratory Rate 14 12/07/2017 12:56 PM EDT Oxygen Saturation 100% 12/07/2017 12:57 PM EDT Inhaled Oxygen Concentration - - [...] found Sarah 4+4 prostate cancer as below: ?? DIAGNOSIS CONSULTATION CASE Outside slide(s) labeled [id number], collection date 08/06/2017. A - Prostate, base [...] core biopsy: Prostatic adenocarcinoma, Grade Group 3, Dunnellon score 4+3, involving 95% of a single core (Dunnellon pattern 4 represents 60% of tumor). Perineural [...] core biopsy: Prostatic adenocarcinoma, Grade Group 3, Dunnellon score 4+3, involving 100% of a single core (Dunnellon pattern 4 represents 60% of tumor). Perineural [...] Hospital Course: Amanuel Hussein was admitted to [facility] on 12/07/2017 through [...] that part of your care. Urology Clinic: [phone] PCP: Clara Wood MD, . Please follow-up with your PCP in 1-2 weeks or sooner as needed. Issues to be followed-up with your PCP: 1. Scheduled Appointments: The following appointments have been scheduled on your behalf: Future Appointments and Orders Future Appointments Provider Department Dept Phone 12/17/2017 9:40 AM Nabil Camargo MD [facility] [place] [phone] 12/17/2017 10:20 AM Nabil Camargo MD [facility] [place] [phone] 12/17/2017 10:20 AM UROLOGY, NURSE [facility] [place] [phone] 03/15/2018 9:15 AM Al Ortiz MD Thoracic Surgery [facility] [place] [phone] Outpatient Services/Studies: No discharge procedures on file. [...] 9:40 AM Nabil Camargo MD [facility] [place] [phone] 12/17/2017 10:20 AM Nabil Camargo MD [facility] [place] [phone] 12/17/2017 10:20 AM UROLOGY, NURSE [facility] [place] [phone] 03/15/2018 9:15 AM Al Ortiz MD [facility] [place] [phone] General Instructions None Call your doctor if: [...] managed by the Urologic Surgery Team at [facility]. If you have any questions or concerns, please feel free to contact us. Provider Contact Information: Urology Clinic: [phone] [facility] (after business hours): [...] them as documented. Isidro Gutierrez III, MD post closing specialist and Pediatrics [employer] Senior Staff Pediatric Urologist [facility] documented in this encounter Discharge Instructions Patient InstructionsDFabián diez, MD - 12/07/2017 10:02 AM EDT DISCHARGE [...] 9:40 AM Nabil Camargo MD [facility] [place] [phone] 12/17/2017 10:20 AM Nabil Camargo MD [facility] [place] [phone] 12/17/2017 10:20 AM UROLOGY, NURSE [facility] [place] [phone] 03/15/2018 9:15 AM Al Ortiz MD Thoracic Surgery [facility] [place] [phone] documented in this encounter Progress Notes Vale Ribeiro RN - 12/09/2017 2:55 PM EDT Patient Name: Amanuel Hussein Patient Age: 62 y.o. Birthdate: 1955 Admit date: 12/07/2017 Attending Physician: Nabil Camargo MD Patient watched wade catheter video and provided with wade care supplies. Reviewed discharge and allowed for questions. Rebecca Avitia RN - 12/08/2017 4:26 PM EDT Report received from [place] at 1600. Pt [facility] from [facility] at 1615 to 210-B. [facility] at bedside. Fabián Moore MD - [...] CTAB Abd: soft, nontender, nondistended; incisions CDI. RKISSY Drain with s/s output. : Wade light [...] them as documented. Isidro Gutierrez III, MD post closing specialist and Pediatrics [employer] Senior Staff Pediatric Urologist [facility] Aditi Uribe RN - 12/07/2017 6:31 PM [...] times to enhance drainage. Catheter care performed [id number]. MDs down to see pt, will check [...] Feng MD - 12/07/2017 12:47 PM EDT [facility] Operative Note Patient Name: Amanuel Hussein : [id number] MR#: [id number] Case Date: 12/07/2017 Surgeon: Surgeon(s) and Role: [...] in a linear fashion. A 12 mm legislative assistant port was also inserted, through which AirSeal insufflation was established. A 5 mm legislative assistant port was inserted several cm superior to the LEFT iliac spine. The supraumbilical 8 mm port was exchanged for a 12 mm trocar with an 8 brass pourer. Steep Trendelenberg position was achieved, the da [...] node metastasis was noted. The 12 mm legislative assistant port was closed with a Sae-Thomasen device. [...] Operative Note Patient Name: Amanuel Hussein : [id number] MR#: [id number] Case Date: 12/07/2017 Surgeon: Surgeon(s) and Role: [...] Office Visit Radiation Oncology Clover Covarrubias APRN [facility] RADIATION ONCOLO GY [place], [place] [address] (Wo rk) 12/04/2022 Hospital Encounter Gastroenterology Real Jones MD [facility] GASTROENTEROLOGY DEPT. [place], [place] [address] (Wo rk) Scheduled Procedures Name Priority Associated Diagnoses Date/Time COLONOSCOPY, DIAGNOSTIC 10 yr f/up documented as of this encounter Procedures Procedure Name Priority Date/Time Associated Comments Diagnosis CARTON STAPLER SCAN 12/10/2017 12:00 Res ults for this [...] 12/07/2017 6:53 AM Pre-operative exam (FUTURE SURGERY, [facility] EDT SAME DAY PROGRAM ONLY) ABO/RH TYPING STAT 12/07/2017 6:53 AM Pre-operative exam Re sults for this EDT procedure are i n the results section. ANTIBODY SCREEN STAT 12/07/2017 6:53 AM Pre-operative exam Results for this EDT procedure are i n the results section. documented in this encounter Results SCAN DOC: CARTON STAPLER (12/10/2017 12:00 AM EDT) Narrative 12/10/2017 12:00 AM EDT This result has an attachment that is no t available. Ordered by an unspecified provider. Scanning Provider MEDIA MGR SCAN EXT ORDR/RSLT Creatinine Level Body Fluid KRISSY Drain (12/09/2017 5:59 AM EDT) P athologist Signature Creherbert, BF 1.0 mg/dL [facility] Comment: No reference range is available for the specimen type submitted. ??The performance of this assay for the submit dwight type has not been validated and results should be interpreted accordingl y and with regard to the patient's clinical status. Creat, BF Type KRISSY Drain [facility] Specimen Anatomical Collection Method Collection Time Receive d Time (Source) Location / / Volume Laterality KRISSY Drain 12/09/2017 5:59 AM 8 6:07 EDT AM EDT Resulting Agency Comment Spec In Lab Nabil Camargo MD BODY FLUIDS AND STOOLS ORDER CORWIN Performing Organization Address City/State/ZIP Code Phon e Number [facility] [place] [address] Differential, Automated (12/09/2017 2:16 AM EDT) athologist Signature Neutrophils % 60.8 % [facility] Neutr Abs (ANC) 4.25 1.70 - [facility] 6.10 [facility] x10(3)/[facility] LABORATORY Lymphocytes % 28.4 % [facility] Lymphocytes Abs 2.0 0.9 - 3.2 [facility] x10(3)/[facility] LABORATORY Monocytes % 10.1 % [facility] Monocyte Abs 0.7 0.3 - 0.9 [facility] x10(3)/[facility] LABORATORY Eosinophils % 0.3 % [facility] Eosinophils Abs 0.0 0.0 - 0.4 [facility] x10(3)/[facility] LABORATORY Basophils % 0.3 % [facility] Basophils Abs 0.0 0.0 - 0.1 [facility] x10(3)/[facility] LABORATORY Immature Gran % 0.10 % [facility] Comment: Immature granulocytes(IG's)percentage an d absolute count will include metamyelocytes, myelocytes, and promyelo cytes. Blood smears from CBCs yielding IG's will be scanned manually for concor dance. If this scan disagrees with the automated IG or if promyelocytes are not ed, a manual differential will be performed. Malika Gran Abs 0.01 0.00 - 0.04 x10(3)/[facility] LABORATORY Specimen Anatomical Collection Method Collection Time Receive d Time (Source) Location / / Volume Laterality Blood specimen 12/09/2017 2:16 AM 018 2:37 (specimen) EDT AM EDT Resulting Agency Comment Spec In Lab Reji Feng MD HEMATOLOGY ORDERABLES Performing Organization Address City/State/[place] [address] (ABNORMAL) Hemogram (12/09/2017 2:16 AM EDT) [facility] Time Signature WBC 7.0 4.0 - 9.5 [facility] x10(3)/[facility] LABORATORY RBC 3.76 (L) 4.58 - [place] [facility] 5.54 [facility] x10(6)/[facility] LABORATORY Hemoglobin 12.6 (L) 13.7 - [facility] 16.5 gm/dL [facility] Hematocrit 36.7 (L) 40.5 - [facility] 48.5 % [facility] MCV 97.6 (H) 82.9 - [facility] 93.1 [facility] LABORATORY MCH 33.5 (H) 27.5 - [facility] 32.1 pg [facility] MCHC 34.3 32.0 - [facility] 35.7 gm/dL [facility]ORY Platelets 179 145 - 357 [facility] x10(3)/[facility] LABORATORY RDWSD 42.9 36.0 - [facility] MIGUELINA 45.0 [facility] LABORATORY RDWCV 11.9 11.4 - [facility] 13.8 % [facility] LABORATORY MPV 8.8 7.6 - 12.9 [facility] LABORATORY nRBC % Auto 0.0 % [facility] nRBC Abs Auto 0.000 0.000 - [facility] MIGUELINA 0.000 [facility] x10(3)/[facility] LABORATORY Specimen Anatomical Collection Method Collection Time Receive d Time (Source) Location / / Volume Laterality Blood specimen 12/09/2017 2:16 AM 018 2:37 (specimen) EDT AM EDT Resulting Agency Comment Spec In Lab Reji Feng MD HEMATOLOGY ORDERABLES Performing Organization Address City/State/[place] [address] (ABNORMAL) Basic Metabolic Panel (non-fasting) (12/09/2017 2:16 AM EDT) athologist Signature Glucose Lvl 119 65 - 199 [facility] mg/dL [facility] Comment: Diabetes: >=200 mg/dL plus symp toms BUN 19 10 - 20 mg/dL [facility] Creatinine 0.98 0.80 - 1.50 mg/dL [facility] Sodium 142 135 - 145 mmol/L [facility] Potassium 4.2 3.5 - 5.0 mmol/L [facility] Comment: Please note: ??Patients with WBC >100,00 0 may have falsely elevated Potassium levels. ??For accurate Potassium quantif ication in these patients send serum separator tube (gold top) for subsequent determinations. ??Contact the Clinical Chemistry Laboratory if there are any qu estions. Chloride 108 (H) 98 - 107 mmol/L [facility] CO2 25 22 - 31 mmol/L [facility] Anion Gap 9 5 - 15 mmol/L [facility] Calcium 8.0 (L) 8.5 - 10.5 mg/dL [facility] Estimated GFR 82 >=60 mL/min/1.73 m?? [facility] Comment: The eGFR was calculated using the CKD-EP I equation. As with all creatinine based estimates of kidney function, eGFR values calculated with the CKD-EPI equation are not accurate in patients wi th acute kidney failure, extremes of body mass or the acutely ill. http://Plored/[facility] eGFR 95 >=60 mL/min/1.73 m?? [facility] Comment: The eGFR was calculated using the CKD-EP I equation. As with all creatinine based estimates of kidney function, eGFR values calculated with the CKD-EPI equation are not accurate in patients wi th acute kidney failure, extremes of body mass or the acutely ill. http://Plored/[facility] Specimen Anatomical Collection Method Collection Time Receive d Time (Source) Location / / Volume Laterality Blood specimen 12/09/2017 2:16 AM 018 2:37 (specimen) EDT AM EDT Resulting Agency Comment Spec In Lab Nabil Camargo MD CHEMISTRY ORDERABLES Performing Organization Address City/State/[place] [address] (ABNORMAL) Differential, Automated (12/08/2017 4:22 AM EDT) [facility] Method Time Signature Neutrophils % 82.4 % [facility] Neutr Abs (ANC) 6.18 (H) 1.70 - [facility] 6.10 [facility] x10(3)/[facility] LABORATORY Lymphocytes % 8.5 % [facility] Lymphocytes Abs 0.6 (L) 0.9 - 3.2 [facility] x10(3)/[facility] LABORATORY Monocytes % 8.8 % [facility] Monocyte Abs 0.7 0.3 - 0.9 [facility] x10(3)/[facility] LABORATORY Eosinophils % 0.0 % [facility] Eosinophils Abs 0.0 0.0 - 0.4 [facility] x10(3)/[facility] LABORATORY Basophils % 0.0 % [facility] Basophils Abs 0.0 0.0 - 0.1 [facility] x10(3)/[facility] LABORATORY Immature Gran % 0.30 % [facility] Comment: Immature granulocytes(IG's)percentage an d absolute count will include metamyelocytes, myelocytes, and promyelo cytes. Blood smears from CBCs yielding IG's will be scanned manually for concor dance. If this scan disagrees with the automated IG or if promyelocytes are not ed, a manual differential will be performed. Malika Gran Abs 0.02 0.00 - 0.04 x10(3)/[facility] Specimen Anatomical Collection Method Collection Time Receive d Time (Source) Location / / Volume Laterality Blood specimen 12/08/2017 4:22 AM 018 4:41 (specimen) EDT AM EDT Resulting Agency Comment Spec In Lab Reji Feng MD HEMATOLOGY ORDERABLES Performing Organization Address City/State/ZIP Code Phon e Number [place] [id number] HOSPITAL LAB[address]ORY Drive (ABNORMAL) Hemogram (12/08/2017 4:22 AM EDT) Analysis Performed At Patho logist Time Signature WBC 7.5 4.0 - 9.5 [place] x10(3)/[facility] LABORATORY RBC 3.77 (L) 4.58 - [place] [facility] 5.54 [facility] x10(6)/[facility] LABORATORY Hemoglobin 12.4 (L) 13.7 - [facility] MIGUELINA 16.5 gm/dL [facility] Hematocrit 35.8 (L) 40.5 - [facility] 48.5 % [facility]ORY MCV 95.0 (H) 82.9 - [facility] MIGUELINA 93.1 [facility] LABORATORY MCH 32.9 (H) 27.5 - [place] [facility] 32.1 pg [facility]ATORY MCHC 34.6 32.0 - [place] [facility] 35.7 gm/dL [facility] Platelets 179 145 - 357 [facility] x10(3)/[facility] LABORATORY RDWSD 40.6 36.0 - [place] [facility] 45.0 [facility] LABORATORY RDWCV 11.7 11.4 - [facility] 13.8 % [facility] LABORATORY MPV 8.7 7.6 - 12.9 [facility] MIGUELINA [facility] LABORATORY nRBC % Auto 0.0 % [facility] nRBC Abs Auto 0.000 0.000 - [place] [facility] 0.000 [facility] x10(3)/[facility] LABORATORY Specimen Anatomical Collection Method Collection Time Receive d Time (Source) Location / / Volume Laterality Blood specimen 12/08/2017 4:22 AM 018 4:41 (specimen) EDT AM EDT Resulting Agency Comment Spec In Lab Reji Feng MD HEMATOLOGY ORDERABLES Performing Organization Address City/State/[place] [address] (ABNORMAL) Basic Metabolic Panel (non-fasting) (12/08/2017 4:22 AM EDT) athologist Signature Glucose Lvl 126 65 - 199 [facility] mg/dL [facility] Comment: Diabetes: >=200 mg/dL plus symp toms BUN 19 10 - 20 mg/dL [facility] Creatinine 1.09 0.80 - 1.50 mg/dL [facility] Sodium 138 135 - 145 mmol/L [facility] Potassium 4.3 3.5 - 5.0 mmol/L [facility] Comment: Please note: ??Patients with WBC >100,00 0 may have falsely elevated Potassium levels. ??For accurate Potassium quantif ication in these patients send serum separator tube (gold top) for subsequent determinations. ??Contact the Clinical Chemistry Laboratory if there are any qu estions. Chloride 104 98 - 107 mmol/L [facility] CO2 22 22 - 31 mmol/L [facility] Anion Gap 12 5 - 15 mmol/L [facility] Calcium 7.7 (L) 8.5 - 10.5 mg/dL [facility] Estimated GFR 72 >=60 mL/min/1.73 m?? [facility] Comment: The eGFR was calculated using the CKD-EP I equation. As with all creatinine based estimates of kidney function, eGFR values calculated with the CKD-EPI equation are not accurate in patients wi th acute kidney failure, extremes of body mass or the acutely ill. http://Plored/[facility] eGFR 83 >=60 mL/min/1.73 m?? [facility] Comment: The eGFR was calculated using the CKD-EP I equation. As with all creatinine based estimates of kidney function, eGFR values calculated with the CKD-EPI equation are not accurate in patients wi th acute kidney failure, extremes of body mass or the acutely ill. http://Plored/[facility] Specimen Anatomical Collection Method Collection Time Receive d Time (Source) Location / / Volume Laterality Blood specimen 12/08/2017 4:22 AM 018 4:41 (specimen) EDT AM EDT Resulting Agency Comment Spec In Lab Nabil Camargo MD CHEMISTRY ORDERABLES Performing Organization Address City/State/[place] [address] Specimen to Pathology (12/07/2017 11:43 AM EDT) Specimen Anatomical Collection Method Collection Time Receive d Time (Source) Location / / Volume Laterality AP Specimen 12/07/2017 11:43 12/07/2017 AM EDT 12:40 PM EDT Narrative [facility] OR - 12/07/2017 12:40 PM EDT Specimen requisition ordered. ??Separate Pathology report to follow Resulting Agency Comment Spec In Lab Nabil Camargo MD PATHOLOGY/CYTOLOGY ORDERABLE S Performing Organization Address City/State/ZIP Code Phon e Number [address] Specimen to Pathology (12/07/2017 11:43 AM EDT) Specimen Anatomical Collection Method Collection Time Receive d Time (Source) Location / / Volume Laterality AP Specimen 12/07/2017 11:43 12/07/2017 AM EDT 12:40 PM EDT Narrative [facility] OR - 12/07/2017 12:40 PM EDT Specimen requisition ordered. ??Separate Pathology report to follow Resulting Agency Comment Spec In Lab Nabil Camargo MD PATHOLOGY/CYTOLOGY ORDERABLE S Performing Organization Address City/State/[place] [address] Surgical Pathology Report (12/07/2017 11:40 AM EDT) Component Value Ref Test Analysis Performed At [facility] Method Time Signature Surgical [id number] ? Location: 2WST; 0210; B [facility] Report The signing pathologist has (i) examined the relevant preparation(s) for the [facility] specimen(s) and (ii) rendered or confirmed the diagnosis(es) . HOSPITAL LABORATORY . ?Surgic al Pathology DIAGNOSIS A - Bilateral pelvic lymph nodes, excision: ?Two lymph nodes, no evidence of malignancy (0/2). B - Prostate gland, resection: ?1. Prostatic adenocarcinoma, grade group 2, Sarah ? grade 3+4 (see Synoptic Report). ?2. Small periprostatic lymph node, no evidence of ? malignancy (0/1). SYNOPTIC REPORT Specimen ? Procedure: ??Radical prostatectomy Tumor ? Histologic Type: ?? Acinar adenocarcinoma ? Histologic Grade ?Primary Dunnellon Pattern: ?? Pattern 3 ?Secondary Dunnellon Pattern: ?? Pattern 4 ?Total Dunnellon Score: ?? 7 ?Grade Group: ??2 ?Percentage [...] Enrique Bain Verified: ??12/13/2017 ?Pathologist Performed at: ??-[facility] Dept. of Pathology, [place], [place] DISCUSSION In addition to the tumor [...] al. Mod Pathol 2013;26(suppl. 2),253A). Scanned slides: [id number] CLINICAL INFORMATION Specimen Submitted: A - [...] prostatectomy, oriente d. DIMENSIONS/WEIGHT Weight: 39 grams. Lee to base: 4.4 cm. Transverse: 4.1 cm. [...] left vas deferns margins en face; (38) territory representative distal right seminal vesicle; ; (39) territory representative distal left seminal vesicle; (40) core biopsy, RA; (41) core biopsy RP, (42) core biopsy LA; (43) core biopsy LP. ??(R43) ?? JULIA Specimen (Source) Anatomical Collection Method Collection Time Re ceived Time Location / / Volume Laterality 12/07/2017 11:40 AM EDT Nabil Camargo MD PATHOLOGY/CYTOLOGY ORDERABLE S Performing Organization Address [facility]/ZIP [facility] Phon e Number [address] ABORH Recheck Status (12/07/2017 6:53 AM EDT) Patholo gist Method Time Signature ABORH Type Completed [facility] LABORATORY Specimen Anatomical Collection Method Collection Time Receive d Time (Source) Location / / Volume Laterality Blood specimen 12/07/2017 6:53 AM 018 6:55 (specimen) EDT AM EDT Resulting Agency Comment Spec In Lab Nabil Camargo MD BLOOD BANK ORDERABLES Performing Organization Address [facility]/[place] [address] Antibody screen (12/07/2017 6:53 AM EDT) [facility] g[facility] Method Time Signature Ab Screen Negative [facility] LABORATORY Expires at 12/10/2017 [facility] [id number] on: [facility]ORY Specimen Anatomical Collection Method Collection Time Receive d Time (Source) Location / / Volume Laterality Blood specimen 12/07/2017 6:53 AM 018 6:55 (specimen) EDT AM EDT Resulting Agency Comment Spec In Lab Nabil Camargo MD BLOOD BANK ORDERABLES Performing Organization Address City/[facility]/[place] [address] ABO/Rh Typing (12/07/2017 6:53 AM EDT) P athologist Signature ABORh Type B Pos [facility] LABORATORY Specimen Anatomical Collection Method Collection Time Receive d Time (Source) Location / / Volume Laterality Blood specimen 12/07/2017 6:53 AM 018 6:55 (specimen) EDT AM EDT Resulting Agency Comment Spec In Lab Nabil Camargo MD BLOOD BANK ORDERABLES Performing Organization Address City/State/ZIP [place] [address] documented in this encounter Visit Diagnoses Diagnosis Pre-operative exam Preoperative examination, unspecified Prostate cancer Malignant neoplasm of prostate Prostate cancer Malignant neoplasm of prostate documented [...] Given 12/09/2017 12:13 AM EDT 1,000 mg BUpivacaine (SENSORCAINE) 0.25 Given 12/07/2017 12:54 PM 50 mg 19- Surgical Site % (2.5 mg/mL) injection EDT ONCE PRN, Starting on Sun12/07/17 at 1254, Until Sun12/09/17 at 1827, Intra-Operative (Intra-Procedure), Routine ceFAZolin (ANCEF) 2g in dextrose 5% New [...] Intravenous, 2 TIMES DAILY, First dose on 9/14/18 at 2100, Until Discontinued, Recovery (Recovery-Hospital Unit), Routine Given 12/08/2017 8:34 PM EDT 5 mLs Given 12/08/2017 8:04 AM EDT 5 mLs sodium chloride 0.9% infusion New Bag 12/08/2017 4:42 PM EDT 1,000 mLs 100 mL/hr 1,000 mL, at 100 mL/hr, Intravenous, CONTINUOUS, Starting on Sun12/07/17 at 1330, Until Sun12/09/17 at 1827, Recovery (Recovery-Hospital Unit) New Bag 12/08/2017 12:00 AM EDT 1,000 mLs 100 mL/hr New Bag 12/07/2017 1:19 PM EDT 1,000 mLs 100 mL/hr documented in this encounter Active and Recently Administered Medications Times are shown in EDT. Scheduled Medication Order 12/07/2017 12/08/2017 12/09/2017 acetaminophen (TYLENOL) tablet 1,000 mg (COMPLETED) 07 45 (Given - Provider: Ruthie Peters RN) 1,000 mg, Oral, ONCE, 1 dose, Sun [...] Celena Carter RN)1803 (Given - Provider: Rebecca Avitia RN) 0013 (Given - Provider: Susan Mcqueen, ANA)0554 (Given - Provider: Susan Mcqueen, ANA)1149 (Given - Provider: Vale Ribeiro RN) 1,000 mg, Oral, EVERY 6 HOURS SCHEDULED, First dose on Sun12/07/17 at 1400, Until Discontinued, Maximum dose of acetaminophen is 4000 mg from all sources in 24 hours., Routine ceFAZolin (ANCEF) 2g in dextrose 5% 100 mL (COMPLETED) 0915 (Given - Provider: Chikis Farley MD)1213 (Given - Provider: Maria E Holder MD) 2 g, Intravenous, TILLER MAN TO O.R., 1 dos e, Sun12/07/17 at 0745, Administer over 30 Minutes, Day of Surgery (Day of Procedure), Indication for (Active or Suspected): Prophylaxis ceFAZolin (ANCEF) 2g in dextrose 5% 100 mL (COMPLETED) 2013 (New Bag - Provider: Clover Greenwood)2043 (Stopped - Provider: Clover Greenwood) 305 (New Bag - Provider: Clover Greenwood)0336 (Stopped - Provider: Clover Greenwood) 2 g, Intravenous, EVERY 8 HOURS, 2 doses , First dose on Sun12/07/17 at 2000, Last dose on Sun12/08/17 at 0400, Administer over 30 Minutes, Indication for (Active or Suspected): Prophylaxis docusate sodium (COLACE) capsule 100 mg 2011 (Given - Provid er: Clover Greenwood) 0848 (Given - Provider: Celena Carter, ANA)2032 (Given - Provider: Susan Mcqueen RN) 0811 (Given - Provider: Vale Ribeiro , ANA) 100 mg, Oral, 2 TIMES DAILY, First dose on Sun12/07/17 at 2100, Until Discontinued, Routine gabapentin (NEURONTIN) capsule 600 mg (COMPLETED) 744 (Given - Provider: Ruthie Peters, ANA) 600 mg, Oral, ONCE, 1 dose, Sun12/07/17 at 0745, Administer with SIP of H2O only., Day of Surgery (Day of Procedure), Routine heparin (Porcine) subcutaneous injection 5,000 Units ( COMPLETED) 744 (Given - Provider: Ruthie Peters RN) 5,000 Units, Subcutaneous, 30 MIN PRE-OP , 1 dose, Sun12/07/17 at 0745, Day of Surgery (Day of Procedure), Routine heparin (Porcine) subcutaneous injection 5,000 Units 1 800 (Given - Provider: Aditi Uribe RN) 0306 (Given - Provider: Clover Greenwood)0 909 (Given - Provider: Celena Carter, ANA)1803 (Given - Provider: Rebecca Avitia RN) 0554 (Given - Provider: Susan Mcqueen RN)1447 (Given - Provider: Vale Ribeiro RN) 5,000 Units, Subcutaneous, EVERY 8 HOURS SCHEDULED, First dose on Sun12/07/17 at 1730, Until Discontinued, Routine ketorolac (TORADOL) injection 15 mg (COMPLETED) 1328 ( Given - Provider: Darling Cardoza, ANA)1800 (Given - Provider: Aditi Uribe, ANA)2357 (Given - Provider: Clover Greenwood) 0605 (Given - Provider: Clover Greenwood)1 219 (Given - Provider: Celena Carter RN)1803 (Given - Provider: Rebecca Avitia, RN) 15 mg, Intravenous, EVERY 6 HOURS SCHEDU LED, 6 doses, First dose on Sun12/07/17 at 1330, Last dose on Sun12/08/17 at 1800, Routine sodium chloride 0.9 % flush 5 mL 2100 (Not Given - Pro vider: Clover Greenwood - Reason: See comment) 0804 (Given - Provider: Celena Carter , ANA)2034 (Given - Provider: Susan Mcqueen, ANA) 0811 (Given - Provider: Vale Ribeiro , ANA) 5 mL, Intravenous, 2 TIMES DAILY, First [...] CON TINUOUS, Starting Sun12/07/17 at 1330, Until Sun12/09/17 at 1827, Recovery (Recovery-Hospital Unit) PRN Medication Order 12/07/2017 12/08/2017 12/09/2017 BUpivacaine (SENSORCAINE) 0.25 % (2.5 mg/mL) injection (CANCELED) 1254 (Given - Provider: Reji Feng MD) ONCE PRN, Starting Sun12/07/17 at 1254, Until Sun12/09/17 at 1827, Intra- Operative (Intra-Procedure), Routine HYDROmorphone (DILAUDID) injection 0.2-0.4 mg (CANCELE D) 1332 (Given - Provider: Darling Cardoza RN) 0.2-0.4 mg, Intravenous, EVERY 5 MIN PRN , Starting Sun12/07/17 at 1242, Until Sun12/07/17 at 1627, [...] immediate release tablet 10-15 mg(Linked Group 2) 1450 (See Alternative - Provider: Vale Ribeiro RN) 10-15 mg, Oral, EVERY 4 HOURS PRN, Start ing Sun12/07/17 at 1313, Until 12/09/17 at 1827, Pain, severe pain (7-10), Initial dose 10mg. If pain control not adequate in 60 minutes, give additional 5mg, Routine oxyCODONE (ROXICODONE) immediate release tablet 5-10 mg(Linked G roup 2) 1450 (Given - Provider: Vale Ribeiro RN) 5-10 [...]
Routine documented in this encounter Care Teams Presser Hand Relationship Specialty Start Date End Date Clara Wood MD PCP - General Family Medicine 01/26/17 [address] [place] [address] documented as of this encounter
--- OUTSIDE RECORDS SUMMARY | 2021-12-30 01:32 | XMS_ITS | Encounter Summary ---
:1955 Author Organization [facility] [place] [address] Care Team Providers Name Role Phone Clara Wood MD Primary Care Provider Encounter Details Date Type Department Care Team Description 05/30/2018 Laboratory Appointment Lab 3L [facility] [place] [address] Social History Tobacco Use Types Packs/Day [...] Covarrubias APRN [facility] RADIATION ONCJENNIFER PAZ [place], [place] [address] (Wo rk) 12/04/2022 Hospital Encounter Gastroenterology Real Jones MD [facility] GASTROENTEROLOGY DEPT. [place], [place] [address] (Wo rk) Scheduled Procedures Name Priority Associated Diagnoses Date/Time COLONOSCOPY, DIAGNOSTIC 10 yr f/up documented as of this encounter Procedures Procedure Name Priority Date/Time Associated Diagnosis Comme nts PSA STAT 05/30/2018 1:24 PM Prostate cancer Result s for this (ULTRASENSITIVE) EST procedure a re in the results section. documented in this encounter Results PSA (05/30/2018 1:24 PM EST) athologist Signature PSA Total <0.01 0.00 - [facility] (Ultrasensitiv 4.00 ng/mL [facility] LABORATORY Specimen Anatomical Collection Method Collection Time Receive d Time (Source) Location / / Volume Laterality Blood specimen 05/30/2018 1:24 PM 019 1:34 (specimen) EST PM EST Resulting Agency Comment Spec In Lab Nabil Camargo MD CHEMISTRY ORDERABLES Performing Organization Address City/State/Z[place] [address] documented in this encounter Visit Diagnoses Diagnosis Prostate cancer Malignant neoplasm of prostate documented in this encounter Care Teams Research Manufacturing Operator Relationship Specialty Start Date End Date Clara Wood MD PCP - General Family Medicine 01/26/17 [address] [place] [address] documented as of this encounter
--- OUTSIDE RECORDS SUMMARY | 2021-12-30 01:32 | XMS_ITS | Encounter Summary ---
:1955 Author Organization [facility] [place] [address] Care Team Providers Name Role Phone Clara Wood MD Primary Care Provider Encounter Details Date Type Department Care Team Description 10/18/2017 Laboratory Appointment Lab at [facility] [place] [address] Social History Tobacco Use Types Packs/Day [...] Clover Covarrubias APRN [facility] ER RADIATION ONCJENNIFER GY [place], [place] [address] (Wo rk) 12/04/2022 Hospital Encounter Gastroenterology Real Jones MD [facility] GASTROENTEROLOGY DEPT. [place], [place] [address] (Wo rk) Scheduled Procedures Name Priority Associated Diagnoses Date/Time COLONOSCOPY, DIAGNOSTIC 10 yr f/up documented as of this encounter Procedures Procedure Name Priority Date/Time Associated Comments Diagnosis HEMOGRAM Routine 10/18/2017 11:46 Prostate cancer Results for this AM EDT procedure are i n the results section. DIFFERENTIAL, Routine 10/18/2017 11:46 Prostate cancer Results for this AUTOMATED AM EDT procedure are i n the results section. CBC (WITH DIFF) Routine 10/18/2017 11:46 Prostate cancer AM EDT COMPREHENSIVE Routine 10/18/2017 11:46 Prostate cancer Results for this METABOLIC PANEL AM EDT procedure ar e in (NON-FASTING) the results section. documented in this encounter Results Differential, Automated (10/18/2017 11:46 AM EDT) athologist Signature Neutrophils % 56.8 % [facility] LABORATORY Neutr Abs (ANC) 2.55 1.70 - [facility] 6.10 [facility] x10(3)[facility] LABORATORY Lymphocytes % 33.6 % [facility] LABORATORY Lymphocytes Abs 1.5 0.9 - 3.2 [facility] x10(3)/[facility] LABORATORY Monocytes % 6.5 % [facility] LAB[facility] Monocyte Abs 0.3 0.3 - 0.9 [facility] x10(3)/[facility] LABORATORY Eosinophils % 2.2 % [facility] Eosinophils Abs 0.1 0.0 - 0.4 [facility] x10(3)/[facility] LABORATORY Basophils % 0.9 % [facility] Basophils Abs 0.0 0.0 - 0.1 [facility] x10(3)/[facility] LABORATORY Immature Gran % 0.00 % [facility] LABORAT[facility] Comment: Immature granulocytes(IG's)percentage an d absolute count will include metamyelocytes, myelocytes, and promyelo cytes. Blood smears from CBCs yielding IG's will be scanned manually for concor dance. If this scan disagrees with the automated IG or if promyelocytes are not ed, a manual differential will be performed. Malika Gran Abs 0.00 0.00 - 0.04 x10(3)/[facility] LABORATORY Specimen Anatomical Collection Method Collection Time Receive d Time (Source) Location / / Volume Laterality Blood specimen 10/18/2017 11:46 8 (specimen) AM EDT 12:50 PM EDT Resulting Agency Comment Spec In Lab Nabil Camargo MD HEMATOLOGY ORDERABLES Performing Organization Address City/State/[place] [address] (ABNORMAL) Hemogram (10/18/2017 11:46 AM EDT) Analysis Performed At Patho logist Time Signature WBC 4.5 4.0 - 9.5 [facility](3[facility] LABORATORY RBC 4.45 (L) 4.58 - [facility] MIGUELINA 5.54 [facility] x10(6)/[facility] LABORATORY Hemoglobin 15.0 13.7 - [facility] 16.5 gm/dL [facility] LABORATORY Hematocrit 43.8 40.5 - [facility] 48.5 % [facility] LABORATORY MCV 98.4 (H) 82.9 - [facility] MIGUELINA 93.1 [facility] LABORATORY MCH 33.7 (H) 27.5 - [place] MIGUELINA 32.1 pg [facility] LABORATORY MCHC 34.2 32.0 - [facility] MIGUELINA 35.7 gm/dL [facility] LABORATORY Platelets 221 145 - 357 [facility] x10(3)/[facility] LABORATORY RDWSD 44.6 36.0 - [facility] MIGUELINA 45.0 [facility] LABORATORY RDWCV 12.2 11.4 - [facility] MIGUELINA 13.8 % [facility] LABORATORY MPV 8.8 7.6 - 12.9 [facility] MIGUELINA [facility] LABORATORY nRBC % Auto 0.0 % [facility] LABORATORY nRBC Abs Auto 0.000 0.000 - [facility] MIGUELINA 0.000 [facility] x10(3)/[facility] LABORATORY Specimen Anatomical Collection Method Collection Time Receive d Time (Source) Location / / Volume Laterality Blood specimen 10/18/2017 11:46 8 (specimen) AM EDT 12:50 PM EDT Resulting Agency Comment Spec In Lab Nabil Camargo MD HEMATOLOGY ORDERABLES Performing Organization Address City/State/ZIP [place] [address] (ABNORMAL) Comprehensive metabolic panel (non-fasting) (10/18/2017 11:46 AM EDT) athologist Signature Glucose Lvl 117 65 - 199 [facility] mg/dL [facility] LABORATORY Comment: Diabetes: >=200 mg/dL plus symp toms BUN 14 10 - 20 mg/dL [facility] LABORATORY Creatinine 1.03 0.80 - 1.50 mg/dL [facility] LABORATORY Sodium 143 135 - 145 mmol/L [facility] LABORATORY Potassium 3.9 3.5 - 5.0 mmol/L [facility] LABORATORY Comment: Please note: ??Patients with WBC >100,00 0 may have falsely elevated Potassium levels. ??For accurate Potassium quantif ication in these patients send serum separator tube (gold top) for subsequent determinations. ??Contact the Clinical Chemistry Laboratory if there are any qu estions. Chloride 100 98 - 107 mmol/L [facility] LABORATORY CO2 25 22 - 31 mmol/L [facility]OR[facility] Anion Gap 18 (H) 5 - 15 mmol/L [facility] LABORATORY Calcium 9.1 8.5 - 10.5 mg/dL [facility] LABORATORY Total Protein 7.3 6.1 - 8.0 gm/dL [facility] LABORATORY Albumin 4.4 3.2 - 5.2 gm/dL [facility] LABORAT[facility] AST 24 0 - 39 unit/L [facility] LABORATORY ALT 21 0 - 55 unit/L [facility] LABORATORY Alk Phos 68 40 - 120 unit/L [facility] Total Bilirubin 0.9 0.2 - 1.3 mg/dL [facility] LAB[facility] Estimated GFR 77 >=60 mL/min/1.73 m?? [facility] LAB[facility] Comment: The eGFR was calculated using the CKD-EP I equation. As with all creatinine based estimates of kidney function, eGFR values calculated with the CKD-EPI equation are not accurate in patients wi th acute kidney failure, extremes of body mass or the acutely ill. http://[employer] management/DHnkdep http://[employer]/[facility]f eGFR 89 >=60 mL/min/1.73 m?? [facility] LABOR[facility] Comment: The eGFR was calculated using the CKD-EP I equation. As with all creatinine based estimates of kidney function, eGFR values calculated with the CKD-EPI equation are not accurate in patients wi th acute kidney failure, extremes of body mass or the acutely ill. http://[employer] management/DHnkdep http://[employer] management/DHMCnkf Specimen Anatomical Collection Method Collection Time Receive d Time (Source) Location / / Volume Laterality Blood specimen 10/18/2017 11:46 8 (specimen) AM EDT 12:50 PM EDT Resulting Agency Comment Spec In Lab Nabil Camargo MD CHEMISTRY ORDERABLES Performing Organization Address City/State/[place] [address] documented in this encounter Visit Diagnoses Diagnosis Prostate cancer Malignant neoplasm of prostate documented in this encounter Care Teams Bakery Manager Relationship Specialty Start Date End Date Clara Wood MD PCP - General Family Medicine 01/26/17 [address] [place] [address] documented as of this encounter
--- OUTSIDE RECORDS SUMMARY | 2021-12-30 01:32 | XMS_ITS | Encounter Summary ---
:1955 Author Organization [facility] [place] [address] Care Team Providers Name Role Phone Clara Wood MD Primary Care Provider Encounter Details Date Type Department Care Team Description 12/18/2017 Telephone Urology at [facility] Nabil Camargo MD [facility] [place] [address] UROLOGY [phone] [place] [id number] (Wo rk) Social History Tobacco Use Types [...] Notes Telephone Encounter - Estelle Palmer - 12/18/2017 12:15 PM EDT LM for pt to schedule 3M fuv w/ with a PSA prior (Feb 2018) documented in this encounter Plan of Treatment Upcoming Encounters Date Type Specialty Care Team Description 01/19/2022 Office Visit Radiation Oncology Clover Covarrubias APRN [facility] ER RADIATION ONCJENNIFER [place], [place] [address] (Wo rk) 12/04/2022 Hospital Encounter Gastroenterology Real Jones MD [facility] ER GASTROENTEROLOGY DEPT. [place], [place] [address] (Wo rk) Scheduled Procedures Name Priority Associated Diagnoses Date/Time COLONOSCOPY, DIAGNOSTIC 10 yr f/up documented as of this encounter Visit Diagnoses Not on filedocumented in this encounter Care Teams Software Systems Analyst Relationship Specialty Start Date End Date Clara Wood MD PCP - General Family Medicine 01/26/17 [address] [place] [address] documented as of this encounter
--- OUTSIDE RECORDS SUMMARY | 2021-12-30 01:32 | XMS_ITS | Encounter Summary ---
:1955 Author Organization [facility] [place] [address] Care Team Providers Name Role Phone Clara Wood MD Primary Care Provider Reason for Referral Diagnostic Test (Routine) - Closed Specialty Diagnoses / Procedures Referred By Contact Refer red To Contact Radiology Diagnoses Paraesophageal hernia Al Ortiz MD [facility] Rad Xray Procedures XR Fluoro Barium Swallow [facility] [place] [address] [place] [address] Referral ID Status Reason Start Date Expiration Date Visits V isits Requested Authorized [id number] Closed Specialty 03/16/2017 03/16/2018 1 1 Service Requested Reason for Visit Diagnostic Test (Routine) - Closed Specialty Diagnoses / Procedures Referred By Contact Refer red To Contact Radiology Diagnoses Paraesophageal hernia Al Ortiz MD [facility] Rad Xray Procedures XR Fluoro Barium Swallow [facility] [address] [place] [address] [place] [address] [place] [address] Referral ID Status Reason Start Date Expiration Date Visits V isits Requested Authorized [id number] Closed Specialty 03/16/2017 03/16/2018 1 1 Service Requested Encounter Details Date Type Department Care Team Description 09/14/2017 Hospital Encounter XRay at [facility] Ortiz, Paraesophageal hernia [address] Al Upotn MD [facility] [address] Center [phone] [place] [address] Social History Tobacco Use Types Packs/Day Years [...] Visit Radiation Oncology Clover Covarrubias APRN [facility] RADIATION ONCJENNIFER GY [place], [place] [address] (Wo rk) 12/04/2022 Hospital Encounter Gastroenterology Real Jones MD [facility] GASTROENTEROLOGY DEPT. [place], [place] [address] (Wo rk) Scheduled Procedures Name Priority Associated Diagnoses Date/Time COLONOSCOPY, DIAGNOSTIC 10 yr f/up documented as of this encounter Procedures Procedure Name Priority Date/Time Associated Diagnosis Comme nts XR FLUORO BARIUM Routine 09/14/2017 8:53 AM Paraesophageal her nessa Results for this SWALLOW (SINGLE EDT procedure ar e in CONTRAST) the results section. documented in this encounter Results (ABNORMAL) XR Fluoro Barium Swallow (09/14/2017 8:53 AM EDT) Anatomical Region Laterality Modality N/A Radio Fluoroscopy Specimen (Source) Anatomical Location Collection Method / Collectio n Time Received Time / Laterality Volume Impressions 09/14/2017 11:02 AM EDT The esophagus had a normal appearance. There is retained liquid in the stomach and the gastric folds were thickened. Clinical correlation is recommended and if indicated further evaluation should be performed. Unexpected finding. Narrative 09/14/2017 11:02 AM EDT EXAMINATION: XR FLUORO BARIUM SWALLOW CLINICAL HISTORY: s/p paraesophageal her nessa repair 02/2017 TECHNIQUE: Double contrast esophagram was performed . Fluoroscopic spot films were obtained. ?? Fluoro time: 1.28 minutes COMPARISON: 03/01/2017 FINDINGS: The esophagus is normal in course and ca liber, and is well distended on double contrast views. ??The mucosal pattern is normal. Esophageal peristalsis is normal. No gastroesophageal reflux was seen. The pharynx was normal a barium pill pas sed freely into the stomach. There was residual liquid in the stomach and the g astric folds appeared thickened. Clinical correlation is recommended and if indicated, further evaluation should be performed. Unexpected finding. Resulting Agency Comment Unexpected Finding Al Ortiz MD IMG FLUORO ORDERABLES documented in this encounter Visit Diagnoses Diagnosis Paraesophageal hernia Diaphragmatic hernia without mention of obstruction or gangrene documented in this encounter Care Teams Film Maker Relationship Specialty Start Date End Date Clara Wood MD PCP - General Family Medicine 01/26/17 [address] [place] [address] documented as of this encounter
--- OUTSIDE RECORDS SUMMARY | 2021-12-30 01:32 | XMS_ITS | Encounter Summary ---
:1955 Author Organization [facility] [place] [address] Care Team Providers Name Role Phone Clara Wood MD Primary Care Provider Reason for Visit Reason Comments Follow Up Surgery Encounter Details Date Type Department Care Team Description 03/15/2018 Office Visit Thoracic Surgery at [facility] S/Frank repair of [facility] MD Alexsandra paraesophageal hernia [facility] HIMANSHU Donovan Thoracic Surgery [id number] [place] [address] [phone] Social History Tobacco Use Types Packs/Day Years [...] Sign Reading Time Taken Comments Blood Pressure 132/83 03/15/2018 8:56 AM EST Pulse 66 03/15/2018 8:56 AM EST Temperature 36.9 ??C (98.4 ??F) 03/15/2018 8:56 AM EST Respiratory Rate 18 03/15/2018 8:56 AM EST Oxygen Saturation 98% 03/15/2018 8:56 AM EST Inhaled Oxygen Concentration - - Weight 90.7 kg (200 lb) 03/15/2018 8:56 AM EST Height 175 cm (5' 8.9) 03/15/2018 8:56 AM EST Body Mass Index 29.62 03/15/2018 8:56 AM EST documented in this encounter Patient Instructions Patient InstructionsAshley Wright RN - 03/15/2018 9:15 AM EST Thank you for visiting Dr. Ortiz in clinic 03/15/18. Dr. Ortiz would like to see you back in clinic in 1 year with a recent chest Xray. You will receive a letter in the [...] encounter Progress Notes Al Ortiz MD - 03/15/2018 9:15 AM EST Thoracic Surgery Attending Outpatient Consultation Note Al Ortiz MD [place] [address] ?? 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 He was last seen 09/14/2017 and at that time was doing well. He??was discharged after an uneventful postoperative course. ??Today, he??is breathing comfortably and denies fevers. Heis eating a regular diet with no difficulty. He has no symptoms of reflux or regurgitation. He has undergone a prostatectomy for prostate cancer and is doing well. He notes weight loss around the time of his prostatectomy, but has gained some of this back. He otherwise has no complaints. He denies dysphagia, melena, hematemesis. ?? Eckardt Scoring ?Weight loss (kg)?D ysphagia?Retrosternal pain?Regurgitation 0 ?None?None ?None ?None 1 ?<??5 ?Occassional?Occassional ?Occassiona l 2 ?5-10 ?Daily?Daily ?Daily 3 ?>??10?Each meal ?Each meal ?Each meal ?? Total Score = ??0 ?? On physical examination today, his??BP 132/83 (Patient Position: Sitting) Pulse 66 Temp 36.9 ??C(98.4 ??F) (Temporal) Resp 18 Ht 175 cm (5' 8.9) Wt 90.7 kg (200 lb) SpO2 98% BMI 29.62 kg/m?? .??In general, he??is in no acute distress. ??His??pupils are reactive. ??His??lungs are clear to auscultation bilaterally. ??His??heart has a regular rate with no murmurs. ??His??incisions are healed with no evidence of hernia. ??His??abdomen is soft and nontender. ??His??extremities are warm with no edema. ??Neurologically, he??is grossly intact. ? Today's chest X-ray, which I have personally reviewed, shows no acute cardiopulmonary process and noobvious recurrent hiatal hernia. ?? 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 He is off anti-acid medications for the last 9 months. He has no reflux symptoms or heart burn. I would like to see him back in 1 year to ensure he is still doing well. We will obtain a CXR at that time. ?? He will also see Dr. Doyle from GI in soon for an EGD for Latif's surveillance. . ?? He knows to call my office in the interim if there are issues or concerns. ?? Al Ortiz MD 03/15/2018 documented in this encounter Plan of Treatment Upcoming Encounters Date Type Specialty Care Team Description 01/19/2022 Office Visit Radiation Oncology Clover Covarrubias APRN [facility] RADIATION ONCOLO [address]Y [place], [place] [address] (Wo rk) 12/04/2022 Hospital Encounter Gastroenterology Real Jones MD [facility] GASTROENTEROLOGY DEPT. [place], [place] [address] (Wo rk) Scheduled Procedures Name Priority Associated Diagnoses Date/Time COLONOSCOPY, DIAGNOSTIC 10 yr f/up documented as of this encounter Visit Diagnoses Diagnosis S/P repair of paraesophageal hernia Other postprocedural status documented in this encounter Care Teams Nicking Machine Operator Relationship Specialty Start Date End Date Clara Wood MD PCP - General Family Medicine 01/26/17 [address] [place] [address] documented as of this encounter
--- OUTSIDE RECORDS SUMMARY | 2021-12-30 01:32 | XMS_ITS | Encounter Summary ---
:1955 Author Organization [facility] [place] [address] Care Team Providers Name Role Phone Clara Wood MD Primary Care Provider Encounter Details Date Type Department Care Team Description 03/15/2018 Hospital En[place] [facility] [place]P repair of [address] [place] [id number] Social History Tobacco Use Types Packs/Day Years [...] on file documented as of this encounter Medications at Time of Discharge Medication Sig Dispensed Refills Start Date End Date acetaminophen (TYLENOL) 325 Take 650 mg by mouth 0 mg Tablet every 4 hours as needed for Pain. documented as of this encounter Plan of Treatment Upcoming Encounters Date Type Specialty Care Team Description 01/19/2022 Office Visit Radiation Oncology Clover Covarrubias APRN [facility] RADIATION ONCJENNIFER [place], [place] [address] (Wo rk) 12/04/2022 Hospital Encounter Gastroenterology Real Jones MD [facility] [place] [place] [address] (Wo rk) Scheduled Procedures Name Priority Associated Diagnoses Date/Time COLONOSCOPY, DIAGNOSTIC 10 yr f/up documented as of this encounter Procedures Procedure Name Priority Date/Time Associated Diagnosis Comme nts XR CHEST PA AND Routine 03/15/2018 8:01 AM S/P repair of Resul ts for this LATERAL EST paraesophageal hernia proced ure are in the results section. documented in this encounter Results XR Chest PA & [...] status documented in this encounter Care Teams Director Perioperative Relationship Specialty Start Date End Date Clara Wood MD PCP - General Family Medicine 01/26/17 [address] [place] [address] documented as of this encounter
--- OUTSIDE RECORDS SUMMARY | 2021-12-30 01:32 | XMS_ITS | Encounter Summary ---
:1955 Author Organization [facility] [place] [address] Care Team Providers Name Role Phone Clara Wood MD Primary Care Provider Encounter Details Date Type Department Care Team Description 02/25/2018 Laboratory Appointment Lab 3L [facility] [place] [phone] Social History Tobacco Use Types Packs/Day Years [...] Office Visit Radiation Oncology Clover Covarrubias APRN [facility] RADIATION ONCOLO GY [place], [place] [address] (Wo rk) 12/04/2022 Hospital Encounter Gastroenterology Real Jones MD [facility] GASTROENTEROLOGY DEPT. [place], [place] [address] (Wo rk) Scheduled Procedures Name Priority Associated Diagnoses Date/Time COLONOSCOPY, DIAGNOSTIC 10 yr f/up documented as of this encounter Procedures Procedure Name Priority Date/Time Associated Diagnosis Comme nts PSA STAT 02/25/2018 9:04 AM Malignant neoplasm Res ults for this (ULTRASENSITIVE) EST of prostate procedure a re in the results section. documented in this encounter Results PSA (02/25/2018 9:04 AM EST) athologist Signature PSA Total <0.01 0.00 - [facility] (Ultrasensitiv 4.00 ng/mL [facility] LABORATORY Specimen Anatomical Collection Method Collection Time Receive d Time (Source) Location / / Volume Laterality Blood specimen 02/25/2018 9:04 AM 018 9:22 (specimen) EST AM EST Resulting Agency Comment Spec In Lab Nabil Camargo MD CHEMISTRY ORDERABLES Performing Organization Address City/State/[place] [address] documented in this encounter Visit Diagnoses Diagnosis Malignant neoplasm of prostate documented in this encounter Care Teams Front Counter Attendant Relationship Specialty Start Date End Date Clara Wood MD PCP - General Family Medicine 01/26/17 [address] [place] [address] documented as of this encounter
--- OUTSIDE RECORDS SUMMARY | 2021-12-30 01:32 | XMS_ITS | Encounter Summary ---
:1955 Author Organization [facility] [place] [address] Care Team Providers Name Role Phone Clara Wood MD Primary Care Provider Reason for Visit Reason Onset Date Comments Other 04/29/2018 PPI rx Encounter Details Date Type Department Care Team Description 04/29/2018 Telephone Thoracic Surgery at [facility] Ashley Wright RN Other (PPI rx) [place] [phone] Social History Tobacco Use Types Packs/Day Years Used Date Former Smoker Cigarettes 1.5 20 Quit: 1982 Smokeless Tobacco: Never Used Alcohol Use Standard [...] documented as of this encounter Miscellaneous Notes Addendum Note - Ashley Wright RN - 04/29/2018 2:40 PM EST Addended by: ASHLEY WRIGHT on: 04/29/2018 02:40 PM Modules accepted: Orders Telephone Encounter - Ashley Wright RN - 04/29/2018 2:00 PM EST Procedure: ? Upper GI endoscopy 04/23/17 Indications: ? Screening for Latif's esophagus, Follow-up of reflux esophagitis Provider:? Kaiser Doyle MD Impression: ?- Z-line irregular, 40 cm from the ?incisors. ?- LA Grade C reflux esophagitis. ?Biopsied. ?- A 270 degree fundoplication was ?found. The wrap appears loose. ?- Normal examined duodenum. Recommendation: ?- Await pathology results. ?- Start Daily PPI therapy. Amanuel calling requesting PPI be called to his local [facility] [place] ( requesting 30 days and 1 refill -will then request rx to his mail-away pharmacy [place] ). Has taken protonix ( pantoprazole )40 mg daily and then progressed to BID ,last taken about 1 year ago. Page out to [id number] Return call from shauna Rodríguez for protonix 40 mg tabs daily #30 and 1 refill . Call to pt home ,voice message left regarding this . Script called to local pharmacy . documented in this encounter Plan of Treatment Upcoming Encounters Date Type Specialty Care Team Description 01/19/2022 Office Visit Radiation Oncology Clover Covarrubias, DIRECTOR PATIENT ACCOUNTING [facility] RADIATION ONCJENNIFER [place], [place] [address] (Wo rk) 12/04/2022 Hospital Encounter Gastroenterology Real Jones MD [facility] GASTROENTEROLOGY DEPT. [place], [place] [address] (Wo rk) Scheduled Procedures Name Priority Associated Diagnoses Date/Time COLONOSCOPY, DIAGNOSTIC 10 yr f/up documented as of this encounter Visit Diagnoses Not on filedocumented in this encounter Care Teams Cupola Melting Supervisor Relationship Specialty Start Date End Date Clara Wood MD PCP - General Family Medicine 01/26/17 [address] [place] [address] documented as of this encounter
--- OUTSIDE RECORDS SUMMARY | 2021-12-30 01:32 | XMS_ITS | Encounter Summary ---
:1955 Author Organization [facility] [place] [address] Care Team Providers Name Role Phone Clara Wood MD Primary Care Provider Encounter Details Date Type Department Care Team Description 12/17/2017 Clinical Support [place]rology [place] [facility] [place] [address] Social History Tobacco Use Types Packs/Day [...] documented as of this encounter Progress Notes Estelle Wilcox RN - 12/17/2017 10:20 AM EDT Patient presents today for a voiding trial and catheter removal s/p prostatectomy . The patient was given Ciprofloxacin 500mg 1 by mouth. All incisions well approximated. No signs of infection noted. Procedure: 80 mLs normal saline instilled via fleming catheter. Balloon deflated. Fleming gently removed. Patient voided 75 mLs. FOS good. Good control. Kegals practiced at this time. All instructions and literature reviewed with patient. Patient verbalized understanding of instructions. Per Dr. Camargo, patient may go home without PVR check. Pt was told to call if he notices weakening stream, difficulty voiding, or a feeling of bladder pressure. Patient verbalized understanding. Estelle Wilcox, RN documented in this encounter Plan of Treatment Upcoming Encounters Date Type Specialty Care Team Description 01/19/2022 Office Visit Radiation Oncology Clover Covarrubias APRN [facility] RADIATION ONCOLO [place], [place] [address] (Wo rk) 12/04/2022 Hospital Encounter Gastroenterology Real Jones MD [facility] GASTROENTEROLOGY DEPT. [place], [place] [address] (Wo rk) Scheduled Procedures Name Priority Associated Diagnoses Date/Time COLONOSCOPY, DIAGNOSTIC 10 yr f/up documented as of this encounter Visit Diagnoses Diagnosis Prostate cancer Malignant neoplasm of prostate documented in this encounter Care Teams Process Control Supervisor Relationship Specialty Start Date End Date Clara Wood MD PCP - General Family Medicine 01/26/17 [address] [place] [address] documented as of this encounter
--- OUTSIDE RECORDS SUMMARY | 2021-12-30 01:32 | XMS_ITS | Encounter Summary ---
:1955 Author Organization [facility] [place] [address] Care Team Providers Name Role Phone Clara Wood MD Primary Care Provider Encounter Details Date Type Department Care Team Description 03/01/2020 Telephone Urology at [facility] [place] [address] Social History Tobacco Use Types Packs/Day [...] this encounter Miscellaneous Notes Telephone Encounter - Uma Monzon LNA - 03/01/2020 10:01 AM EST Called patient to review allergies and medication. LVM letting him know there is no need to call us back, we will review the day of. documented in this encounter Plan of Treatment Upcoming Encounters Date Type Specialty Care Team Description 01/19/2022 Office Visit Radiation Oncology Clover Covarrubias, CLINICAL REHABILITATION COORDINATOR [facility] RADIATION ONCOLO GY [place], [place] [address] (Wo rk) 12/04/2022 Hospital Encounter Gastroenterology Real Jones MD [facility] GASTROENTEROLOGY DEPT. [place], [place] [address] (Wo rk) Scheduled Procedures Name Priority Associated Diagnoses Date/Time COLONOSCOPY, DIAGNOSTIC 10 yr f/up documented as of this encounter Visit Diagnoses Not on filedocumented in this encounter Care Teams Therapist Relationship Specialty Start Date End Date Clara Wood MD PCP - General Family Medicine 01/26/17 [address] [place] [address] documented as of this encounter
--- OUTSIDE RECORDS SUMMARY | 2021-12-30 01:32 | XMS_ITS | Encounter Summary ---
:1955 Author Organization [facility] [place] [address] Care Team Providers Name Role Phone Clara Wood MD Primary Care Provider Reason for Visit Reason Onset Date Comments Medication Refill 05/21/2018 Encounter Details Date Type Department Care Team Description 05/21/2018 Telephone Thoracic Surgery at [facility] Yolis Montelongo, loan servicing [place] [address] Social History Tobacco Use Types Packs/Day [...] this encounter Miscellaneous Notes Telephone Encounter - Yolis Montelongo RN - 05/21/2018 10:08 AM EST TC to Amanuel Regarding his Protonix refill per Dr. Doyle's recommendation from the EGD from 04/23/18. Per Amanuel I am not having any symptoms of acid reflux like I did before and would prefer not to be on Protonix but it was recommended by Dr. Doyle. Will discuss plan of refill with Dr. Ortiz as we may send it to his PCP. Update: Per Dr. Ortiz - will reach out to PCP for Protonix script from this point forward. Amanuel is in agreement with this plan. Amanuel knows to call with any questions or concerns. documented in this encounter Plan of Treatment Upcoming Encounters Date Type Specialty Care Team Description 01/19/2022 Office Visit Radiation Oncology Clover Covarrubias, [facility] RADIATION ONCJENNIFER [place], [place] [address] (Wo rk) 12/04/2022 Hospital Encounter Gastroenterology Real Jones MD [facility] GASTROENTEROLOGY DEPT. [place], [place] [address] (Wo rk) Scheduled Procedures Name Priority Associated Diagnoses Date/Time COLONOSCOPY, DIAGNOSTIC 10 yr f/up documented as of this encounter Visit Diagnoses Not on filedocumented in this encounter Care Teams Director Of Cardiology Relationship Specialty Start Date End Date Clara Wood MD PCP - General Family Medicine 01/26/17 [address] [place] [address] documented as of this encounter
--- OUTSIDE RECORDS SUMMARY | 2021-12-30 01:32 | XMS_ITS | Encounter Summary ---
:1955 Author Organization [facility] [place] [address] Care Team Providers Name Role Phone Clara Wood MD Primary Care Provider Encounter Details Date Type Department Care Team Description 10/15/2017 External Results Medical Records Provider, [place] [phone] Social History Tobacco Use Types Packs/Day [...] Visit Radiation Oncology Clover Covarrubias APRN [facility] RADIATION ONCJENNIFER GY [place], [place] [address] (Wo rk) 12/04/2022 Hospital Encounter Gastroenterology Real Jones MD [facility] GASTROENTEROLOGY DEPT. [place], [place] [address] (Wo rk) Scheduled Procedures Name Priority Associated Diagnoses Date/Time COLONOSCOPY, DIAGNOSTIC 10 yr f/up documented as of this encounter Procedures Procedure Name Priority Date/Time Associated Diagnosis Comme nts SURGICAL PATHOLOGY SCAN Routine 10/15/2017 documented in this encounter Results Scan Doc: Surgical Pathology (10/15/2017) Narrative This result has an attachment that is no t available. Nabil Camargo MD MEDIA MGR SCAN EXT ORDR/RSLT documented in this encounter Visit Diagnoses Not on filedocumented in this encounter Care Teams Medicine Technologist Relationship Specialty Start Date End Date Clara Wood MD PCP - General Family Medicine 01/26/17 [address] [place] [address] documented as of this encounter
--- OUTSIDE RECORDS SUMMARY | 2021-12-30 01:32 | XMS_ITS | Encounter Summary ---
:1955 Author Organization [place] [address] Care Team Providers Name Role Phone Clara Wood MD Primary Care Provider Encounter Details Date Type Department Care Team Description 03/09/2020 TH Visit Urology at [facility] Nabil Camargo Malignant neoplasm of (TeleHealth) [facility] MD [place] [address] UROLOGY [phone] [place], [place] [address] Social History Tobacco Use Types [...] encounter Progress Notes Nabil Camargo MD - 03/09/2020 8:00 AM EST Urologic Oncology Clinic Note Date of Service: March 09, 2020 Name: Amanuel Lomax : 1955 CC: Prostate cancer HPI: Amanuel Lomax is a 64 y.o. old male with a history of [...] strain: Not on file ??? Food insecurity Worry: Not on file Inability: Not on file ??? Transportation needs Medical: Not on file Non-medical: Not on file Tobacco Use ??? Smoking status: Former Smoker Packs/day: 1.50 Years: 20.00 Pack years: 30.00 Types: Cigarettes Quit date: 1982 Years since quittin.9 ??? Smokeless tobacco: Never Used Substance and Sexual Activity ??? Alcohol use: Yes Comment: rarely ??? Drug use: No ??? Sexual activity: Not on file Lifestyle ??? Physical activity Days per week: Not on file Minutes per session: Not on file ??? Stress: Not on file Relationships ??? Social connections Talks on phone: Not on file Gets together: Not on file Attends druze service: Not on file Active member of club or organization: Not on file Attends meetings of clubs or organizations: Not on file Relationship status: Not on file ??? Intimate partner violence Fear of current or ex partner: Not on file Emotionally abused: Not on file Physically abused: Not on file Forced sexual activity: Not on file Other Topics Concern ??? Not on file Social History Narrative ??? Not on file Physical Exam: Not done (telehealth) Vital Signs: There were no vitals taken for this visit. PSA Since surgery 02/2018 - <0.01 05/2018 - <0.01 09/2018 - 0.02 11/2018 - 0.02 07/2019 - <0.1 (locally) 08/2019 - 0.03 02/2020 - 0.04 (locally) Assessment: # Prostate cancer, [id number], Grade Group 2, Margin limited (<3mm) anterior apex. Sarah 3 at margin s/p L>R NS RALP / PLND 12/07/2017 with low detectable PSA Plan: # PSA in 3 months # Escalate viagra if desired # Discussed significance of low detectable PSA. Discussed salvage vs close observation. I favor close observation considering extremely low PSA . We will plan to repeat PSA in 3 months. Patient verbally consents to this telephone visit and understands that this visit may be billed, similar to a clinic office visit. I provided care to the patient today via telephone call. The total time associated with this visit was 15 minutes. documented in this encounter Plan of Treatment Upcoming Encounters Date Type Specialty Care Team Description 01/19/2022 Office Visit Radiation Oncology Clover Covarrubias APRN [facility] RADIATION ONCOLO [place], [place] [address] (Wo rk) 12/04/2022 Hospital Encounter Gastroenterology Real Jones MD [facility] GASTROENTEROLOGY DEPT. [place], [place] [address] (Wo rk) Scheduled Procedures Name Priority Associated Diagnoses Date/Time COLONOSCOPY, DIAGNOSTIC 10 yr f/up documented as of this encounter Visit Diagnoses Diagnosis Malignant neoplasm of prostate documented in this encounter Care Teams Diplomatic Interpreter Relationship Specialty Start Date End Date Clara Wood MD PCP - General Family Medicine 01/26/17 [address] [place] [address] documented as of this encounter
--- OUTSIDE RECORDS SUMMARY | 2021-12-30 01:32 | XMS_ITS | Encounter Summary ---
:1955 Author Organization [facility] [place] [address] Care Team Providers Name Role Phone Clara Wood MD Primary Care Provider Encounter Details Date Type Department Care Team Description 09/08/2019 Office Visit Urology at [facility] Nabil Camargo Malignant neoplasm of [facility] MD [place] [address] UROLOGY [phone] [place], [place] [address] (Wo rk) Social History Tobacco [...] Sign Reading Time Taken Comments Blood Pressure 109/78 09/08/2019 3:05 PM EDT Pulse 69 09/08/2019 3:05 PM EDT Temperature - - Respiratory Rate - - Oxygen Saturation - - Inhaled Oxygen Concentration - - Weight - - Height - - Body Mass Index - - documented in this encounter Progress Notes Nabil Camargo MD - 09/08/2019 3:20 PM EDT Urologic Oncology Clinic Note Date of Service: September 11, 2019 Name: Amanuel [place] : 1955 CC: Prostate [...] Last attempt to quit: 1982 Years since quittin.4 ??? Smokeless tobacco: Never Used Substance and Sexual Activity ??? Alcohol use: Yes Comment: rarely ??? Drug use: No ??? Sexual activity: Not on file Lifestyle ??? Physical activity Days per week: Not on file Minutes per session: Not on file ??? Stress: Not on file Relationships ??? Social connections Talks on phone: Not on file Gets together: Not on file Attends confucianist service: Not on file Active member of [...] on file Physical Exam: Vital Signs: BP 109/78 Pulse 69 General: No acute distress Lungs: Unlabored breathing PSA Since surgery 02/2018 - <0.01 05/2018 - <0.01 09/2018 - 0.02 11/2018 - 0.02 07/2019 - <0.1 (locally) 08/2019 - 0.03 Assessment: # Prostate cancer, pT3aN0, Grade Group 2, Margin limited (<3mm) anterior apex. [place] 3 at margin s/p L>R NS RALP / PLND 12/07/2017 with low detectable, stable PSA Plan: # PSA in six months # Reinforced Kegel exercises, offered pelvic floor PT if he is not happy with current voiding # Trial viagra # Discussed significance of low detectable PSA. Discussed salvage vs close observation. I favor close observation considering extremely low PSA with still incalculable PSADT. We will plan to repeat PSAin 6 months. 20 minutes spent in counseling and coordination of care documented in this encounter Plan of Treatment Upcoming Encounters Date Type Specialty Care Team Description 01/19/2022 Office Visit Radiation Oncology Clover Covarrubias APRN [facility] RADIATION ONCOLO [address]Y [place], [place] [address] (Wo rk) 12/04/2022 Hospital Encounter Gastroenterology Real Jones MD [facility] GASTROENTEROLOGY DEPT. [place], [place] [address] (Wo rk) Scheduled Procedures Name Priority Associated Diagnoses Date/Time COLONOSCOPY, DIAGNOSTIC 10 yr f/up documented as of this encounter Visit Diagnoses Diagnosis Malignant neoplasm of prostate documented in this encounter Care Teams Supervisor [employer] Relationship Specialty Start Date End Date Clara Wood MD PCP - General Family Medicine 01/26/17 [facility] [address] [place] [address] documented as of this encounter
--- OUTSIDE RECORDS SUMMARY | 2021-12-30 01:32 | XMS_ITS | Encounter Summary ---
:1955 Author Organization [facility] [place] [address] Care Team Providers Name Role Phone Clara Wood MD Primary Care Provider Encounter Details Date Type Department Care Team Description 09/08/2019 Laboratory Appointment Lab 3L [facility] [place] [phone] Social History Tobacco Use Types Packs/Day Years [...] Office Visit Radiation Oncology Clover Covarrubias APRN [facility] ER RADIATION ONCOLO GY [place], [place] [address] (Wo rk) 12/04/2022 Hospital Encounter Gastroenterology Real Jones MD [facility] ER GASTROENTEROLOGY DEPT. [place], [place] [address] (Wo rk) Scheduled Procedures Name Priority Associated Diagnoses Date/Time COLONOSCOPY, DIAGNOSTIC 10 yr f/up documented as of this encounter Procedures Procedure Name Priority Date/Time Associated Diagnosis Comme nts HC PROSTATE STAT 09/08/2019 2:07 PM Malignant neoplasm Res ults for this SPECIFIC ANTIGEN EDT of prostate procedure a re in the results section. documented in this encounter Results PSA (Ultrasensitive) (09/08/2019 2:07 PM EDT) athologist Signature PSA Total 0.03 0.00 - [facility] (Ultrasensitiv 4.00 ng/mL [place] [facility] Specimen Anatomical Collection Method Collection Time Receive d Time (Source) Location / / Volume Laterality Blood specimen 09/08/2019 2:07 PM 020 2:17 (specimen) EDT PM EDT Resulting Agency Comment Spec In Lab Nabil Camargo MD CHEMISTRY ORDERABLES Performing Organization Address City/State/[place] [address] documented in this encounter Visit Diagnoses Diagnosis Malignant neoplasm of prostate documented in this encounter Care Teams Tax Collection Coordinator Relationship Specialty Start Date End Date Clara Wood MD PCP - General Family Medicine 01/26/17 [address] [place] [address] documented as of this encounter
--- OUTSIDE RECORDS SUMMARY | 2021-12-30 01:32 | XMS_ITS | Encounter Summary ---
:1955 Author Organization [facility] [place] [address] Care Team Providers Name Role Phone Clara Wood MD Primary Care Provider Encounter Details Date Type Department Care Team Description 04/23/2018 Hospital Encounter [place] [facility] Doyle [facility] [place] [address] [facility] [phone] GASTROENTEROLOGY [place], [place] [address] (Wo rk) Social History Tobacco [...] Sign Reading Time Taken Comments Blood Pressure 144/100 04/23/2018 10:40 AM EST Pulse 61 04/23/2018 9:45 AM EST Temperature 36.9 ??C (98.4 ??F) 04/23/2018 7:39 AM EST Respiratory Rate 18 04/23/2018 10:30 AM EST Oxygen Saturation 97% 04/23/2018 10:40 AM EST Inhaled Oxygen Concentration - - [...] better as expected. Sunday-Sunday Same Day Endo [phone]-8p Otherwise contact [phone] and ask to speak to the anglesmith helper commissions specialist Follow-up care is a johnson part of [...] Radiation Oncology Satish Clover Amber, [facility] RADIATION ONCOLO [address]Y [place], [place] [address] (Wo rk) 12/04/2022 Hospital Encounter Gastroenterology Real Jones MD [facility] GASTROENTEROLOGY DEPT. [place], [place] [address] (Wo rk) Scheduled Procedures Name [...] AM 9 EST 10:55 AM EST Narrative [facility] - 04/23/2018 10:55 AM EST Specimen requisition ordered. ??Separate Pathology report to follow Resulting Agency Comment Spec In Lab Kaiser Doyle MD PATHOLOGY/CYTOLOGY ORDERABLE S Performing Organization Address City/State/[place] [address] Surgical Pathology Report (04/23/2018 9:42 AM EST) Component Value Ref Test Analysis Performed At [facility] Method Time Signature Surgical [id number] ? Location: 4T; EA11; A [facility] Report The signing pathologist has (i) examined the relevant preparation(s) for the [facility] specimen(s) and (ii) rendered or confirmed the diagnosis(es) . HOSPITAL LAB[facility]ORY . ?Surgic al Pathology DIAGNOSIS GE junction, ??biopsy: Squamous esophageal and cardiac mucosa with chronic nonspeci fic gastritis. No goblet cell metaplasia is seen. Electronically signed by: ??Luan Singleton MD Verified: ??04/25/2018 ?Pathologist Performed at: ??-[facility] Dept. of Pathology, [place], [place] CLINICAL INFORMATION Specimen Submitted: A - [...] Organization Address City/State/[place] [address] [facility] [address] UPPER GI ENDOSCOPY (04/23/2018 9:18 AM EST) Component Value Ref Test Analysis Performed At [facility] Method Time Signature UPPER GI [facility]OV[facility] ENDOSCOPY Endoscopy Procedure Date: 04/23/2018 9:18 AM ? Patient Name: Amanuel Hussein ? Date of : 1955 ? Age: 63 ? Order #: [id number] ? Instrument Name: [id number] ? Procedure: ? Upper GI endoscopy Indications: [...] reactions. The ? Endoscope was introduced thro h the ? mouth, and [facility] ? of duodenum. The patient tole rated ? the procedure well. The upper GI ? endoscopy was accomplished wi [facility] ? difficulty. The patient ernesto ated the [...] MAR Action Action Date Dose Rate Site lactated Ringers infusion New Bag 04/23/2018 8:00 AM EST 100 mL/hr 100 mL/hr 100 mL/hr, Intravenous, CONTINUOUS, Starting on Sun04/23/18 at 0800, Until Sun04/23/18 at 1303, Endoscopy (Day of Procedure) documented in this encounter Active and Recently [...] Britany Collazo RN)0936 (Given - Provider: Britany Collazo RN)0939 (Given - Provider: Britany Collazo RN)0942 (Given - Provider: Britany Collazo RN) ONCE PRN, Starting Sun04/23/18 at 0933, Until Sun04/23/18 at 1303, Intra- Operative (Intra-Procedure), Routine midazolam (PF) (VERSED) multi-dose injection (CANCELED) 0933 (Given - Provider: Britany Collazo RN)0935 (Given - Provider: Britany Collazo RN)0939 (Given - Provider: Britany Collazo RN)0942 (Given - Provider: Britany Collazo RN) ONCE PRN, Starting Sun04/23/18 at 0933, Until Sun04/23/18 at 1303, Intra- Operative (Intra-Procedure), Routine documented in this encounter Care Teams Hair Tinter Relationship Specialty Start Date End Date Clara Wood MD PCP - General Family Medicine 01/26/17 [address] [place] [address] documented as of this encounter
--- OUTSIDE RECORDS SUMMARY | 2021-12-30 01:33 | XMS_ITS | Encounter Summary ---
:1955 [place] [address] Care Team Providers Name Role Phone Clara Wood MD Primary Care Provider Encounter Details Date Type Department Care Team Description 09/04/2017 Hospital Encounter Radiology Library at [facility] [place] [facility] [place] [address] UROLOGY DEPT [phone] [place], [place] [address] (Wo rk) Social History Tobacco [...] Office Visit Radiation Oncology Clover Covarrubias APRN [facility] [place] [address] (Wo rk) 12/04/2022 Hospital Encounter Gastroenterology Real Jones MD [facility] GASTROENTEROLOGY DEPT. [place], [place] [address] (Wo rk) Scheduled Procedures Name Priority Associated Diagnoses Date/Time COLONOSCOPY, DIAGNOSTIC 10 yr f/up documented as of this encounter Procedures Procedure Name Priority Date/Time Associated Comments Diagnosis FILM LIBRARY STORAGE Routine 09/04/2017 12:00 AM Results for this ONLY ULTRASOUND EDT procedure ar e in STUDY the results section. documented in this encounter Results Film Library- Storage Only Ultrasound Study (09/04/2017 12:00 AM EDT) Specimen (Source) Anatomical Location Collection Method / Collectio n Time Received Time / Laterality Volume Narrative RAD - 10/09/2017 12:55 PM EDT This exam is for storage only and is aut o-finalizing. Wesley Holder MD IMG FILM LIBRARY ORDERABLES Performing Organization Address City/State/ZIP Code Phon e Number RAD [place], [place] documented in this encounter Visit Diagnoses Not on filedocumented in this encounter Care Teams Custom Furrier Relationship Specialty Start Date End Date Clara Wood MD PCP - General Family Medicine 01/26/17 [address] [place] [address] documented as of this encounter
--- OUTSIDE RECORDS SUMMARY | 2021-12-30 01:33 | XMS_ITS | Encounter Summary ---
:1955 [place] [address] Care Team Providers Name Role Phone Clara Wood MD Primary Care Provider Reason for Visit Auth/Cert Specialty Diagnoses / Procedures Referred By Contact Refer red To Contact Diagnoses Diaphragmatic hernia without obstruction or gangrene hiatal hernia with history of bleeding Procedures PRO LAPAROSCOPY, SURG, REPAIR PARAESOPHAGEAL HERNIA, W/O IMPLANTATION OF MESH LAPAROSCOPIC PARAESOPHAGEAL HERNIA REPAIR W/FUNDOPLASTY, W/O MESH (WRVU 26.6) Referral ID Status Reason Start Date Expiration Date Visits Requ ested Visits Authorized [id number] 1 1 Encounter Details Date Type Department Care Team Description 02/28/2017 Anesthesia Event Main Operating Room Carolyn Andino MD [facility] Anesthesiology Dept [place], [place] [address] [place] [address] [phone] Anesthesia Record Procedure Summary Procedure Name Responsible Anesthesia Start Anesthesia Stop Anesthesiologist Time Time ROBOT XI LAPAROSCOPIC Marcos Andino MD 02/28/17 0728 09/09 1211 PARAESOPHAGEAL HERNIA REPAIR W/FUNDOPLASTY,W/O MESH (WRVU 26.6) (N/A ) Events Date Time Event Comment 02/28/2017 0652 0728 Start 0730 AN Verify 0734 An Start Data 0739 An Induction 0740 An Intubation 0742 Anesthesia Ready 0745 IV Start 0801 Procedure Start Surgery start 0820 Quick Note Deploying robot 0859 Quick Note Sudden blood los s ~300 mL. Surgeon calling for assistance w elda bleeding. Anesthesia MD made aware and p resent at bedside. IVF wide open. Placing a- line. Preemptively calling to prepare PRBC. 0920 ABG Data Arterial Blood G as result: pH 7.3 pCO2 48.1 pO2 181.6 %O2 Sa t 99% FiO2 62% HCO3 23.4 BE -2.9 Hb 13.4 K 4 .2 Glucose 155 Lactate 2.33 1044 Quick Note Surgeon performi ng EGD 1057 Quick Note Surgeon performi ng EGD 1107 ABG Data Arterial Blood G as result: pH 7.338 pCO2 44.5 pO2 193.8 %O2 Sa t 98.2 FiO2 55 HCO3 23.4 BE -2.4 Hb 14.1 K 4 .08 Glucose 161 Lactate 2.14 1115 Quick Note Surgeon performi ng EGD 1122 Quick Note Un-docking robot 1143 Bite Block In 1155 Procedure Stop 1204 Extubation/LMA Out Patient spont aneously ventilating; adequate tidal volumes (6 50-800 mL); regular respiratory rate ; neuromuscular function intact as eviden ce by sustained tetanus; following comman ds. Oropharynx suctioned. Extubated withou t issue to 6L/min O2 via face mask. VSS. 1205 an stop data 1210 Recovery or ICU Handoff Patient care was transferred to the destination unit staff after review of the patient's medica l history, current anesthetic/surgi sharmila status and plan, according to the Provider Handoff Checklist. 1211 Stop Patient responds to stimulation. Spontaneous ventilation with out issue. VSS. Full report given to SINGER SONGWRITER . Name Total Midazolam 2 mg fentaNYL 100 mcg IV Lidocaine 100 mg Propofol 200 mg Rocuronium 100 mg PHENYLephrine 1,020 mcg ePHEDrine 20 mg Ondansetron 4 mg Dexamethasone 4 mg Neostigmine 3 mg Glycopyrrolate 0.6 mg heparin (Porcine) subcutaneous injection 5,000 Units 5 ,000 Units ceFAZolin (ANCEF) 2g in dextrose 5% 100 mL 4 g Succinylcholine 120 mg PHENYLephrine INF 8,500 mcg HYDROmorphone 1.2 mg Lactated Ringers 1,000 mL Lactated Ringers 1,500 mL Agents Name O2 Air N2O Sevoflurane (et) Blood No blood administrations on file. Lines, Drains, and Airways Type Details Placement Removal PIV 02/28/17; 0632; 02/28/17 0632 by Hoffman, 03/01/17 1 729 by metacarpal vein (top of ANA Rodgers Kayla M, hand), left; RN [id number] catheter system; 18 gauge, 1 in length; Alisia HoffmanRN; intradermal injection, distraction, tolerated well; 0; 03/01/17; 1729 ETT Mask Ventilation: Not 02/28/17 0740 by 02/28/17 1204 by Attempted (0); ETT Type: Marcos Andino MD Coppola, Serena S, Cuffed, Oral; ETT Size: 8 BALLAST CLEANING OPERATOR mm; Mac Blade: 3; Notes: Asleep, Pre-O2, RSI, Stylette; Attempts: 1; Laryngoscopy Grade: 1; ETT Placement Verified By: Auscultation, Capnometry; Secured at Teeth: 23 cm; Inserted by: Jimmieiviere PIV 02/28/17; 0745; 02/28/17 0745 by 03/01/17 1729 b y metacarpal vein (top of Marcos Andino MD C hrystal, Kayla M, hand), right; RN [id number] catheter system; 18 gauge; S Jimmieivjose j, BALLAST CLEANING OPERATOR; 0; 03/01/17; 1729 NG/OG Tube 02/28/17; 0750; 02/28/17 0750 by 02/28/17 1139 b y nasogastric; 18 Fr; right Marcos Andino MD Coppola, Serena S, nostril; maintained on BALLAST CLEANING OPERATOR intermittent suction; removed to suction; tubing intact; 02/28/17; 1139 Urethral Catheter 02/28/17; 0810; Surgery 02/28/17 0810 by 02/28 1315 by longer than 2 hours; Mario Jaeger RN Sorrent ino, Kathleen Acute urinary retention; V, RN indwelling double lumen catheter; 14; inserted at this facility; 1; 10; 10; urethral catheter removed, per protocol/policy; 02/28/17; 1315 Incision 02/28/17; 0811; (chest, 02/28/17 0811 by 8 1239 by port sites x 6); Mario Jaeger RN Smith, Debr a L, RN 12/07/17; 1239 Arterial Line 02/28/17; 0910; radial 02/28/17 0910 by 02/28/17 1305 by artery, right; 20 gauge; Tracie Franco, Teresa mckeon, Pamela Andino MD; Sterile MARQUES Camara RN Prep, Sterile Gloves; removed per policy; 02/28/17; 1305 documented in this encounter Social History Tobacco [...] encounter OR Notes Anesthesia Postprocedure Evaluation - Marcos Andino MD - 02/28/2017 1:51 PM EST [facility] [place] Department of Anesthesiology Post-procedure Note Patient: Amanuel Hussein Procedure Summary Date Anesthesia Start Anesthesia Stop Room / Location 02/28/17 0728 1211 [facility] OR [facility] MAIN OR Procedure Diagnosis Surgeon Responsible Provider ROBOT XI LAPAROSCOPIC PARAESOPHAGEAL HERNIA REPAIR W/FUNDOPLASTY,W/O MESH (WRVU 26.6) (N/A ); MODIFIER ROBOT,DAVINCI XI (N/A ); EGD, UPPER GI ENDOSCOPY (N/A ) Paraesophageal hiatal hernia (hiatal hernia with history of bleeding) Al Ortiz MD Brown, Nathaniel J, MD All Anesthesia Providers: Anesthesiologist: Marcos Andino MD BALLAST CLEANING OPERATOR: Tracie Jaramillo CRNA Most Recent Vitals: 02/28/17 1315 BP: 134/79 Pulse: 74 Resp: 13 Temp: 36.6 ??C (97.9 ??F) SpO2: 96% Pain 0 (02/28/17 1315) Patient Location: PACU/SDP Level of Consciousness: Awake and Alert Pain Management: Satisfactory Analgesia PONV: None Cardiovascular Status: At Baseline Respiratory Status: At Baseline Postoperative Fluid Status: Intravascular EUvolemia Possible Anesthetic Complications: NONE apparent at time of evaluation Final Primary Anesthesia Type: General (The anesthetic type performed was the same as planned.) Comments: Pt tolerated procedure well and had no complaints afterwards. No N/V, no pain. Marcos Andino MD Anesthesia Preprocedure Evaluation - Marcos Andino MD - 02/27/2017 2:49 PM EST Images from the original note were not included. Pre-Anesthesia Evaluation for: Amanuel Hussein a 61 y.o. male. Procedure(s): ROBOT XI LAPAROSCOPIC PARAESOPHAGEAL HERNIA REPAIR W/FUNDOPLASTY,W/O MESH (WRVU 26.6) MODIFIER ROBOT,DAVINCI XI EGD, UPPER GI ENDOSCOPY Patient Active Problem List Diagnosis ??? Hiatal hernia ??? Esophageal ulcer ??? Hematemesis Past Medical History: Diagnosis Date ??? GERD (gastroesophageal reflux disease) Past Surgical History: Procedure Laterality Date ??? PRO COLONOSCOPY, DIAGNOSTIC 12/04/2012 COLONOSCOPY, DIAGNOSTIC performed by Real Jones MD at [facility] ENDOSCOPY ??? PRO UPPER GI ENDOSCOPY, BIOPSY 12/04/2012 UPPER GASTROINTESTINAL ENDOSCOPY,WITH BIOPSY SINGLE OR MULTIPLE performed by Real Jones MD at [facility] ENDOSCOPY ??? PRO UPPER GI ENDOSCOPY, BIOPSY N/A 11/29/2016 UPPER GASTROINTESTINAL ENDOSCOPY,WITH BIOPSY SINGLE OR MULTIPLE (WRVU 2.49) performed by Kaiser Doyle MD at [facility] ENDOSCOPY Social History Substance Use Topics ??? Smoking status: Former Smoker Packs/day: 1.50 Years: 20.00 Quit date: 1981 ??? Smokeless tobacco: Never Used ??? Alcohol use Yes Comment: Rare History Drug Use No No Known Allergies Medications: MAR and/or home medications have been reviewed. Physical Exam: There were no vitals filed for this visit. There is no height or weight on file to calculate BMI. Airway Assessment: Mallampati: II TM distance: >3 FB Neck ROM: full Cardiovascular Assessment: Rhythm: regular Rate: normal (-) murmur Pulmonary Assessment: breath sounds clear to auscultation Dental Assessment: Misc Assessment: IV access: Peripheral line Anesthesia Plan: ASA 2 general, with a(n) intravenous induction 61 y/o M with paraesophageal hiatal hernia p/f robotic repair. PMHx otherwise remarkable for GERD, ulcer, intermittent melena (did have episode of hematemesis 4 years ago), remote smoking hx (quit 1981approx 30 pack-year hx). Medical chart reviewed thoroughly with particular attention paid to conditions that immediately impact perioperative care and planning, including, but not limited to, cardiac, respiratory, hematological, and vascular conditions. PLAN: GETA +/-Arterial line Std monitors PIV x 2 Region - Other Informed Consent: Anesthetic plan and risks discussed with patient. Use of blood products discussed with patient who consented to blood products. Plan discussed with BALLAST CLEANING OPERATOR. [facility] Staff Note documented in this encounter Plan of Treatment Upcoming Encounters Date Type Specialty Care Team Description 01/19/2022 Office Visit Radiation Oncology Clover Covarrubias, [facility] RADIATION [place], [place] [address] (Wo rk) 12/04/2022 Hospital Encounter Gastroenterology Real Jones MD [facility] GASTROENTEROLOGY DEPT. [place], [place] [address] (Wo rk) Scheduled Procedures Name Priority Associated Diagnoses Date/Time COLONOSCOPY, DIAGNOSTIC 10 yr f/up documented as of this encounter Visit Diagnoses Not on filedocumented in this encounter Administered Medications Inactive Administered Medications - up to 3 most recent administrations Medication Order MAR Action Action Date Dose Rate Site ceFAZolin (ANCEF) 2g in dextrose 5% Given 02/28/2017 10:48 AM ES T 2 g 100 mL 2 g, Intravenous, EVERY 3 HOURS, 1 dose, First dose on Sun02/28/17 at 0630, Administer over 30 Minutes, Intra-Operative (Intra-Procedure), Indication for (Active or Suspected): Prophylaxis Given 02/28/2017 7:48 AM EST 2 g dexamethasone (DECADRON) injection Given 02/28/2017 8:09 AM EST 4 mg PRN, Starting on Sun02/28/17 at 0809, Until Sun02/28/17 at 1211, Anesthesia Intra-op, Routine ePHEDrine 5 mg/mL multi-dose injection Given 02/28/2017 10:50 AM EST 5 mg PRN, Starting on Sun02/28/17 at 0827, Until Sun02/28/17 at 1211, Anesthesia Intra-op, Routine Given 02/28/2017 9:26 AM EST 5 mg Given 02/28/2017 8:56 AM EST 5 mg fentaNYL 50 mcg/mL multi-dose injection Given 02/28/2017 7:34 AM EST 50 mcg PRN, Starting on Sun02/28/17 at 0728, Until Sun02/28/17 at 1211, Pain, Anesthesia Intra-op, Routine Given 02/28/2017 7:28 AM EST 50 mcg glycopyrrolate (ROBINUL) multi-dose Given 02/28/2017 11:43 AM ES T 0.4 mg injection PRN, Starting on Sun02/28/17 at 0832, Until Sun02/28/17 at 1211, Anesthesia Intra-op, Routine Given 02/28/2017 8:32 AM EST 0.2 mg heparin (Porcine) subcutaneous injection Given 017 7:49 AM EST 5,000 Units 5,000 Units 5,000 Units, Subcutaneous, CENTRAL COMMUNICATIONS SPECIALIST TO O.R., 1 dose, On Sun02/28/17 at 0645, Routine HYDROmorphone (DILAUDID) injection Given 02/28/2017 11:50 AM EST 0.4 mg PRN, Starting on Sun02/28/17 at 1130, Until Sun02/28/17 at 1211, Pain, Anesthesia Intra-op, Routine Given 02/28/2017 11:42 AM EST 0.4 mg Given 02/28/2017 11:30 AM EST 0.4 mg lactated Ringers infusion New Bag 02/28/2017 7:28 AM EST CONTINUOUS PRN, Starting on Sun02/28/17 at 0728, Until Sun02/28/17 at 1211, Anesthesia Intra-op lactated Ringers infusion New Bag 02/28/2017 10:39 AM EST CONTINUOUS PRN, Starting on Sun02/28/17 at 0745, Until Sun02/28/17 at 1211, Anesthesia Intra-op New Bag 02/28/2017 7:45 AM EST lidocaine (PF) (XYLOCAINE) 100 mg/5 mL (2 %) Given 08/2016 7:39 AM EST 100 mg injection PRN, Starting on Sun02/28/17 at 0739, Until Sun02/28/17 at 1211, Anesthesia Intra-op, Routine midazolam (PF) (VERSED) 1 mg/mL multi-dose Given 02/28/2017 7:34 AM EST 1 mg injection PRN, Starting on Sun02/28/17 at 0728, Until Sun02/28/17 at 1211, Sleep, Anesthesia Intra-op, Routine Given 02/28/2017 7:28 AM EST 1 mg neostigmine (BLOXIVERZ) injection Given 02/28/2017 11:43 AM EST 3 mg PRN, Starting on Sun02/28/17 at 1143, Until Sun02/28/17 at 1211, Anesthesia Intra-op, Routine ondansetron (ZOFRAN) injection Given 02/28/2017 11:29 AM EST 4 mg PRN, Starting on Sun02/28/17 at 1129, Until Sun02/28/17 at 1211, Nausea, Anesthesia Intra-op, Routine PHENYLephrine Rate/Dose Change 02/28/2017 11:30 30 mcg/min 22.5 mL/hr (SHABBIR-SYNEPHRINE) 20 mg in AM EST sodium chloride 250 mL (standard ADULT & Pedi greater than 20kg) infusion CONTINUOUS PRN, Starting on Sun02/28/17 at 0850, Until Sun02/28/17 at 1211, Anesthesia Intra-op, Routine Rate/Dose Change 02/28/2017 11:26 AM EST 50 mcg/min 37.5 mL/hr Rate/Dose Change 02/28/2017 10:47 AM EST 70 mcg/min 52.5 mL/hr PHENYLephrine in NS (PF) (SHABBIR-SYNEPHRINE) Given 02/28/2017 1 0:51 AM EST 160 mcg 0.8 mg/10 mL (80 mcg/mL) multi-dose injection Syrg PRN, Starting on Sun02/28/17 at 0758, Until Sun02/28/17 at 1211, Anesthesia Intra-op, Routine Given 02/28/2017 8:56 AM EST 60 mcg Given 02/28/2017 8:47 AM EST 160 mcg propofol (DIPRIVAN) 10 mg/mL bolus injection Given 08/2016 7:39 AM EST 200 mg (Anesthesia) PRN, Starting on Sun02/28/17 at 0739, Until Sun02/28/17 at 1211, Anesthesia Intra-op rocuronium (ZEMURON) multi-dose injectio n Given 02/28/2017 10:20 AM EST 10 mg PRN, Starting on Sun02/28/17 at 0750, Until Sun02/28/17 at 1211, Anesthesia Intra-op, Routine Given 02/28/2017 10:09 AM EST 10 mg Given 02/28/2017 9:17 AM EST 30 mg succinylcholine (ANECTINE) injection Given 02/28/2017 7:39 AM EST 120 mg PRN, Starting on Sun02/28/17 at 0739, Until Sun02/28/17 at 1211, Anesthesia Intra-op, Routine documented in this encounter Care Teams Outpatient Admitting Clerk Relationship Specialty Start Date End Date Clara Wood MD PCP - General Family Medicine 01/26/17 [address] [place] [address] documented as of this encounter
--- OUTSIDE RECORDS SUMMARY | 2021-12-30 01:33 | XMS_ITS | Encounter Summary ---
:1955 Author Organization [facility] [place] [address] Care Team Providers Name Role Phone Clara Wood MD Primary Care Provider Encounter Details Date Type Department Care Team Description 01/29/2017 Clinical Support Same Day at [facility] [place] Paraesophageal hiatal [facility] [place] [address] Social History Tobacco Use Types Packs/Day Years Used Date Former Smoker 1.5 20 Quit: 1981 Smokeless Tobacco: Never Used Alcohol Use Standard Drinks/Week Comments Yes 0 (1 standard drink = 0.6 oz pure alcoho l) Rare Alcohol Habits Answer Date Recorded How often do you have a drink containing alcohol? Not asked How many drinks containing alcohol do you have on a typical Not asked day when you are drinking? How often do you have six or more drinks on one occasion? No t asked Comment: Rare 10/16/2012 Sex Assigned at Date Recorded Not on file documented as of this encounter Last Filed Vital Signs Vital Sign Reading Time Taken Comments Blood Pressure - - Pulse 64 01/29/2017 10:21 AM EST Temperature - - Respiratory Rate - - Oxygen Saturation 96% 01/29/2017 10:21 AM EST Inhaled Oxygen Concentration - - Weight 94.1 kg (207 lb 6.4 oz) 01/29/2017 10:21 AM EST Height 175.3 cm (5' 9) 01/29/2017 10:21 AM EST Body Mass Index 30.63 01/29/2017 10:21 AM EST documented in this encounter Progress Notes Ariela Baker RN - 01/29/2017 10:40 AM EST PAT questionnaire reviewed with patient while in Pre Admission testing. Pre-operative instruction booklet reviewed with patient. Reviewed importance of pain control and cough and deep breathing exercise during the post-operative period. Instructed patient on use of Hibiclens soap to shower with the night before surgery or the morning of surgery. Pt verbalizes a good understanding of all information reviewed. PLAN Testing: Blood work and EKG performed while in PAT. Special medication instructions: None Procedure date: 02/28 Ortiz documented in this encounter Plan of Treatment Upcoming Encounters Date Type Specialty Care Team Description 01/19/2022 Office Visit Radiation Oncology Clover Covarrubias APRN [facility] RADIATION [place], [place] [address] (Wo rk) 12/04/2022 Hospital Encounter Gastroenterology Real Jones MD [facility] GASTROENTEROLOGY DEPT. [place], [place] [address] (Wo rk) Scheduled Procedures Name Priority Associated Diagnoses Date/Time COLONOSCOPY, DIAGNOSTIC 10 yr f/up documented as of this encounter Procedures Procedure Name Priority Date/Time Associated Diagnosis Comme nts EKG 12-LEAD Routine 01/29/2017 10:55 AM Paraesophageal hiatal Results for this EST hernia procedure are i n the results section. documented in this encounter Results EKG 12 Lead (01/29/2017 10:55 AM EST) Component Value Ref Range Test Analysis Performed Pathologis t Method Time At Signature Ventricular rate 54 BPM MUSE SYSTEM Atrial Rate 54 BPM MUSE SYSTEM P-R Interval 210 ms MUSE SYSTEM QRS Duration 90 ms MUSE SYSTEM Q-T Interval 438 ms MUSE SYSTEM QTC Calculated 415 ms MUSE SYSTEM (Bezet) Calculated P Bandy 24 degrees MUSE SYSTEM Calculated R Bandy 5 degrees MUSE SYSTEM Calculated T Bandy 24 degrees MUSE SYSTEM INTERPRETATION Sinus bradycardia with 1st degree A-V block MUSE SYSTEM Borderline criteria for Inferior infarct (cited on or before 28-NOV-2016) Abnormal ECG When compared with ECG of 28-NOV-2016 18:28, No significant change was found Confirmed by MD HUONG, VIVI ([id number]) on 01/29/2017 6:19:03 PM Specimen Anatomical Collection Method Collection Time Receive d Time (Source) Location / / Volume Laterality 01/29/2017 10:55 01/29/2017 6:19 AM EST PM EST Al Ortiz MD ECG ORDERABLES Performing Organization Address City/State/ZIP Code Phon e Number MUSE SYSTEM documented in this encounter Visit Diagnoses Diagnosis Paraesophageal hiatal hernia Diaphragmatic hernia without mention of obstruction or gangrene documented in this encounter Care Teams Whitewater Rafting Guide Relationship Specialty Start Date End Date Clara Wood MD PCP - General Family Medicine 01/26/17 [address] [place] [address] documented as of this encounter
--- OUTSIDE RECORDS SUMMARY | 2021-12-30 01:33 | XMS_ITS | Encounter Summary ---
:1955 Author Organization [facility] [place] [address] Care Team Providers Name Role Phone Clara Wood MD Primary Care Provider Encounter Details Date Type Department Care Team Description 03/16/2017 Hospital Encounter [place] [facility] Paraesophageal hiatal [address] [place] [address] [place] [address] Social History Tobacco Use Types Packs/Day Years [...] Radiation Oncology Clover Covarrubias APRN [facility] RADIATION ON[address]JENNIFER [address] [place], [place] [address] (Wo rk) 12/04/2022 Hospital Encounter Gastroenterology Real Jones MD [facility] GASTROENTEROLOGY DEPT. [place], [place] [address] (Wo rk) Scheduled Procedures Name Priority Associated Diagnoses Date/Time COLONOSCOPY, DIAGNOSTIC 10 yr f/up documented as of this encounter Procedures Procedure Name Priority Date/Time Associated Diagnosis Comme nts XR CHEST PA AND Routine 03/16/2017 7:46 AM Paraesophageal hiat al Results for this LATERAL EST hernia procedure are i n the results section. documented in this encounter Results XR Chest PA & Lateral (Generic) (03/16/2017 7:46 AM EST) Anatomical Region Laterality Modality Chest N/A Digital Radiography Specimen (Source) Anatomical Location Collection Method / Collectio n Time Received Time / Laterality Volume Impressions 03/16/2017 8:45 AM EST No significant abnormality. I have personally reviewed the image(s) and the residents interpretation and agree with the findings, Roc dean 03/16/2017 8:45 AM Narrative 03/16/2017 8:45 AM EST EXAMINATION: XR CHEST PA AND LATERAL (GENERIC) CLINICAL HISTORY: s/p robotic-assisted l ap paraesophageal hernia repair with partial anterior fundoplication (02/28), please eval hernia recurrence TECHNIQUE: PA standing and lateral chest radiograph COMPARISON: Chest radiograph 02/28/2017 and 11/28/2016 FINDINGS: The lungs are clear with normal pulmonar y vascular markings. No pneumothorax or pleural effusions. Unchanged cardiomediastinal silhouette. No air-fluid level or lucency over the c entral epigastric region to suggest hiatal hernia. Procedure Note Roc Alfaro MD - 03/16/2017Formatt ing of this note might be different from the original. EXAMINATION: XR CHEST PA AND LATERAL (GE NERIC) CLINICAL HISTORY: s/p robotic-assisted l ap paraesophageal hernia repair with partial anterior fundoplication (02/28), please eval hernia recurrence TECHNIQUE: PA standing and lateral chest radiograph COMPARISON: Chest radiograph 02/28/2017 and 11/28/2016 FINDINGS: The lungs are clear with normal pulmonar y vascular markings. No pneumothorax or pleural effusions. Unchanged cardiomediastinal silhouette. No air-fluid level or lucency over the c entral epigastric region to suggest hiatal hernia. IMPRESSION No significant abnormality. I have personally reviewed the image(s) and the residents interpretation and agree with the findings, Roc dean 03/16/2017 8:45 AM Al Ortiz MD IMG DX ORDERABLES documented in this encounter Visit Diagnoses Diagnosis Paraesophageal hiatal hernia Diaphragmatic hernia without mention of obstruction or gangrene documented in this encounter Care Teams Residue Furnace Operator Relationship Specialty Start Date End Date Clara Wood MD PCP - General Family Medicine 01/26/17 [address] [facility] [address] [place] [address] documented as of this encounter
--- OUTSIDE RECORDS SUMMARY | 2021-12-30 01:33 | XMS_ITS | Encounter Summary ---
:1955 Author Organization [facility] [place] [address] Care Team Providers Name Role Phone Marin Patton MD Primary Care Provider Reason for Visit Surgical (Routine) - Specialty Diagnoses / Procedures Referred By Contact Refer red To Contact Gastroenterology Diagnoses HH, esophageal dysmotility Al Ortiz MD [facility] [place] Gastro 4t Procedures ESOPHAGEAL FUNCTION TEST, IMPEDANCE PLACEMENT; >1HR HREM [facility] Thoracic Surgery [place], [place] [id number] [place] [address] Fax: Referral ID Status Reason Start Date Expiration Date Visits V isits Requested Authorized [id number] Test Only 12/14/2016 12/14/2017 1 1 Encounter Details Date Type Department Care Team Description 12/19/2016 Procedure visit Gastroenterology at [facility] [place] Esophageal [facility] Alexsandra [place] [address] Social History Tobacco Use Types Packs/Day Years [...] documented as of this encounter Progress Notes Kristopher Vargas RN - 12/19/2016 10:00 AM EDT HREM catheter placed via Left nare without difficulty. Patient tolerated procedure well. documented in this encounter Plan of Treatment Upcoming Encounters Date Type Specialty Care Team Description 01/19/2022 Office Visit Radiation Oncology Clover Covarrubias APRN [facility] RADIATION [place] [address] [place], [place] [address] (Wo rk) 12/04/2022 Hospital Encounter Gastroenterology Real Jones MD [facility] GASTROENTEROLOGY DEPT. [place], [place] [address] (Wo rk) Scheduled Procedures Name Priority Associated Diagnoses Date/Time COLONOSCOPY, DIAGNOSTIC 10 yr f/up documented as of this encounter Visit Diagnoses Diagnosis Esophageal dysmotility Dyskinesia of esophagus documented in this encounter Care Teams Financial Intern Relationship Specialty Start Date End Date Marin Patton MD PCP - General 02/15/10 01/25/17 documented as of this encounter
--- OUTSIDE RECORDS SUMMARY | 2021-12-30 01:33 | XMS_ITS | Encounter Summary ---
:1955 Author Organization [facility] [place] [address] Care Team Providers Name Role Phone Marin Patton MD Primary Care Provider Encounter Details Date Type Department Care Team Description 12/14/2016 Telephone Thoracic Surgery at [facility] [place] [address] Social History Tobacco Use Types Packs/Day Years [...] this encounter Miscellaneous Notes Telephone Encounter - Vanesa Thurston - 12/14/2016 9:06 AM EDT VM left for Amanuel to call back to schedule fu with Angel after his Esophageal Manometry. Giancarlo CROWLEY will contact pt to get that scheduled. documented in this encounter Plan of Treatment Upcoming Encounters Date Type Specialty Care Team Description 01/19/2022 Office Visit Radiation Oncology Clover Covarrubias, [facility] RADIATION ONCOLO [facility] [place], [place] [address] (Wo rk) 12/04/2022 Hospital Encounter Gastroenterology Real Jones MD [facility] GASTROENTEROLOGY DEPT. [place], [place] [address] (Wo rk) Scheduled Procedures Name Priority Associated Diagnoses Date/Time COLONOSCOPY, DIAGNOSTIC 10 yr f/up documented as of this encounter Visit Diagnoses Not on filedocumented in this encounter Care Teams Rack Puncher Relationship Specialty Start Date End Date Marin Patton MD PCP - General 02/15/10 01/25/17 documented as of this encounter
--- OUTSIDE RECORDS SUMMARY | 2021-12-30 01:33 | XMS_ITS | Encounter Summary ---
:1955 Author Organization [facility] [place] [address] Care Team Providers Name Role Phone Clara [...] Expiration Date Visits Requ ested Visits Authorized [id number] 1 1 Encounter Details Date Type Department Care Team Description 02/28/2017 - [address], Paraesophageal hiatal 03/01/2017 Encounter [facility] Al Upton MD hernia Hospital [facility] Dr Wong Thoracic [place], [place] Surgery [id number] [place] [address] [facility] Social History Tobacco Use Types Packs/Day Years [...] Sign Reading Time Taken Comments Blood Pressure 151/95 03/01/2017 4:08 PM EST Pulse 74 02/28/2017 1:15 PM EST Temperature 37.5 ??C (99.5 ??F) 03/01/2017 4:08 PM EST Respiratory Rate 16 03/01/2017 4:08 PM EST Oxygen Saturation 95% 03/01/2017 4:08 PM EST Inhaled Oxygen Concentration - - Weight 93.9 kg (207 lb) 03/01/2017 6:48 AM EST Height 175.3 cm (5' 9) 02/28/2017 6:10 AM EST Body Mass Index 30.57 02/28/2017 6:10 AM EST documented in this encounter Discharge Summaries Tyler Bailey MD - 03/01/2017 5:08 PM EST Department of Thoracic Surgery - Discharge Summary Patient Name: Amanuel Hussein Patient Age: 61 y.o. Birthdate: 1955 Admit date: 02/28/2017 Discharge date: 03/01/17 Attending Physician: Al Servin MD Discharge Diagnoses (Hospital Problems) and Secondary Diagnoses (Chronic Problems): Active Hospital Problems Diagnosis ??? Paraesophageal hernia Resolved Hospital Problems Diagnosis Date Resolved No resolved problems to display. Active Non-Hospital Problems Diagnosis ??? Hiatal hernia ??? Esophageal ulcer ??? Hematemesis Operations/Major Procedures: Case Date: 02/28/2017 Surgeon: Surgeon(s) and Role: * Al Servin MD - Primary * Howard Escamilla PA - Physician Maintainer Central Office * Yary Forbes PA - Physician Maintainer Central Office Procedure: Procedure(s) with comments: ROBOT XI LAPAROSCOPIC PARAESOPHAGEAL HERNIA REPAIR W/FUNDOPLASTY,W/O MESH (WRVU 26.6) - EGD, roboticparaesophageal hernia repair Have both diagnostic bronchoscope and EGD scope available. TT MODIFIER ROBOT,DAVINCI XI EGD, UPPER GI ENDOSCOPY History of Presentation: Amanuel Hussein is a 61 y.o. male with a small to moderate hiatal??hernia that is symptomatic with??recurrent bleeding ulceration and melena Hospital Course: Amanuel Hussein was admitted to [facility] on 02/28/2017via the Same Day Program. He was brought to the operating room on 02/28/[address] Al Servin performed surgery as described above. He tolerated the procedure well and was brought to the Post Anesthesia Care Unit for recovery. After a brief period of time he was transferred to the floor forcontinued rehabilitation. Barium Swallow was performed on POD1 and showed no evidence of leak. By postoperative day # 1 he had met all criteria for discharge to home. Pain was controlled on oral medications. He had walked 5 minutes. He was tolerating a full liquid diet and was voiding spontaneously. Vital signs: Vital Signs Temp: 37.5 ??C (99.5 ??F) Temp Source: Oral Heart Rate: 74 Heart Rate Source: Monitor Resp: 16 BP: (!) 151/95 MAP (NBP): 114 mmHg BP Method: Automatic SpO2: 95 % O2 Flow Rate (L/min): 6 L/min O2 Device: None (Room air) Admission Wt: 93.89 kg Last Wt: Wt Readings from Last 3 Encounters: 03/01/17 93.9 kg (207 lb) 01/29/17 94.1 kg (207 lb 6.4 oz) 01/26/17 93.4 kg (206 lb) Pertinent physical exam findings prior to discharge: Gen: NAD, pleasant, resting in bed HEENT: normocephalic, atraumatic, EOMI, sclerae anicteric Neck: supple, trachea midline Card: RRR, no M/R/G appreciated Pulm: CTAB, no wheeze/ronchi/rales appreciated, non-labored breathing on RA Abd: soft, NT/ND, BS+ Ext: warm, dry, no edema Neuro: A&Ox3, CN II-XII grossly intact, nonfocal, conversant Important Lab Data: Lab Results Component Value Date WBC 9.4 03/01/2017 HGB 12.6 (L) 03/01/2017 HCT 36.7 (L) 03/01/2017 MCV 93.6 (H) 03/01/2017 Lab Results Component Value Date NA 138 03/01/2017 K 3.8 03/01/2017 CL 103 03/01/2017 CO2 25 03/01/2017 Lab Results Component Value Date CREATININE 0.87 03/01/2017 Lab Results Component Value Date BUN 14 03/01/2017 No results found for: PREALBUMIN No results for input(s): PT, PTT, INR in the last 168 hours. Studies: Barium Swallow 03/01/17 IMPRESSION 1. Postoperative changes consistent with hernia repair. 2. No evidence of leak. 3. Mild left lower lobe atelectasis. CXR 02/28/17: No pneumothorax. Possible small left pleural effusion. ?? Pending Studies and Lab Data: No current labs Discharge Conditions/Prognosis: Stable Discharge to: Home Discharge Medications: Your Medications New Medications Dose Details acetaminophen 500 mg Tab Commonly known as: TYLENOL Take 2 tablets by mouth every 6 hours as needed for Pain. 1000 mg Quantity: 100 tablet Refills: 2 Continued medications, unchanged Dose Details pantoprazole 40 mg Tbec Commonly known as: PROTONIX Take 1 tablet by mouth 2 times daily (before meals). 40 mg Quantity: 60 tablet Refills: 3 Updated Allergies/ADRs: No Known Allergies Instructions Given to Patient at Discharge: Patient Instructions Call if you have a fever of greater than 101 degrees, shaking chills, develop redness or drainage from your incision site(s), or if you have questions. During normal business hours, Sunday- Sunday 8:00a.m.-5:00 p.m., please call to speak to a nurse in the Thoracic Clinic at [phone]. After hours or on weekends or holidays please call: [phone] and ask to speak to the Thoracic Surgeon preparation plant repairer. Exercise & Activity Level: As you recover from surgery exercise at least 30 minutes a day. This can be broken up into several times a day to achieve this goal at first, but you will be able to workup to doing all 30 minutes at once. Walking, treadmill, stationary bike, elliptical machine or therestationary exercise equipment is appropriate. Take your incentive spirometer home with you. You should use this every hour while awake, 10 times each. This helps you to exercise your respiratory muscles and to breathe deeply. Taking purposeful deep breaths can be just as effective. Do not lift more than 10 pounds for 2 weeks (nothing heavier than a gallon of milk). Don???t exhaustyourself. Rest between activities as you recover from your procedure. Diet: You should follow a Full Liquid diet for 4 days and then may advance to soft diet. Driving: No driving for 1 week or while taking narcotic pain medication. Shower/Bath: You may shower daily starting 2 days after chest tube removal, no bathing or swimming until your follow-up appointment. Incision care: Wash your incision(s) daily with soap and rinse well, pat dry. Assess for any signs of infection such as increased redness, pain, warmth or drainage. If you had a chest tube, you may remove the dressing over the chest tube site in 2 days after the chest tube was removed and leave it open to the air if it is not draining. Otherwise change the dressing twice a day and as needed. The dressing may remain off once there is no drainage. If you have steri-strips over an incision site, these will remain in place for 7-10 days. You may shower with them, and they will fall off naturally in 7-10 days. If they do not fall off by 10 days, you may remove them. Pain: Pain after surgery is normal. The goal is for you to be able to tolerate pain so you can complete your daily activities. You may notice a burning or numbness on the side of your incision that mayinclude your breast area. This should improve over time but there may be areas that remain numb. Youmay use a heating pad set on low or medium, over your incision to help relax the muscles in the areaand decrease discomfort. Please take your medication as prescribed. If you are not having good pain control, please call and speak to the nurse in the Thoracic Clinic or the Thoracic Surgeon preparation plant repairer after hours. Sleep: Try to establish normal sleep patterns. Long naps during the day may make it hard for you to sleep at night. Use the pain medication at bedtime for the first week at home if needed. Bowel Movements: After surgery, your bowel movements may not be regular for you, but you should be able to get back to your daily routine quickly. Please make sure to take the stool softeners or mild laxatives as prescribed to get back to your normal routine. If you do not have a bowel movement for more than 2 days, please call the office. Follow up appointments: You will see Dr. Servin in 2 weeks with a chest Xray within one hour of the appointment. A letter will be mailed to you confirming your appointment information. You should arrange to see your primary care physician, in two weeks. Future Appointments Date Time Provider Department Center 03/01/2017 1:00 PM [facility] DX ROOM 8 Xray [facility] Rad Clin Provider Contact Information: Primary Care Provider: Clara Wood MD [phone] Discharge References/Attachments: Discharge References/Attachments None For questions regarding this document or issues relating to this hospitalization on the Thoracic Surgery Service, please contact Dr. Servin' office at . Signed: Tyler Bailey MD 03/01/2017 CC: PCP: Clara Wood MD Referring: No referring provider defined for this encounter. documented in this encounter Discharge Instructions Patient InstructionsTyler Bailey MD - 02/28/2017 3:11 PM EST Call if you have a fever of greater than 101 degrees, shaking chills, develop redness or drainage from your incision site(s), or if you have questions. During normal business hours, Sunday- Sunday 8:00a.m.-5:00 p.m., please call to speak to a nurse in the Thoracic Clinic at [phone]. After hours or on weekends or holidays please call: [phone] and ask to speak to the Thoracic Surgeon preparation plant repairer. Exercise & Activity Level: As you recover from surgery exercise at least 30 minutes a day. This can be broken up into several times a day to achieve this goal at first, but you will be able to workup to doing all 30 minutes at once. Walking, treadmill, stationary bike, elliptical machine or therestationary exercise equipment is appropriate. Take your incentive spirometer home with you. You should use this every hour while awake, 10 times each. This helps you to exercise your respiratory muscles and to breathe deeply. Taking purposeful deep breaths can be just as effective. Do not lift more than 10 pounds for 2 weeks (nothing heavier than a gallon of milk). Don???t exhaustyourself. Rest between activities as you recover from your procedure. Diet: You should follow a Full Liquid diet for 4 days and then may advance to soft diet. Driving: No driving for 1 week or while taking narcotic pain medication. Shower/Bath: You may shower daily starting 2 days after chest tube removal, no bathing or swimming until your follow-up appointment. Incision care: Wash your incision(s) daily with soap and rinse well, pat dry. Assess for any signs of infection such as increased redness, pain, warmth or drainage. If you had a chest tube, you may remove the dressing over the chest tube site in 2 days after the chest tube was removed and leave it open to the air if it is not draining. Otherwise change the dressing twice a day and as needed. The dressing may remain off once there is no drainage. If you have steri-strips over an incision site, these will remain in place for 7-10 days. You may shower with them, and they will fall off naturally in 7-10 days. If they do not fall off by 10 days, you may remove them. Pain: Pain after surgery is normal. The goal is for you to be able to tolerate pain so you can complete your daily activities. You may notice a burning or numbness on the side of your incision that mayinclude your breast area. This should improve over time but there may be areas that remain numb. Youmay use a heating pad set on low or medium, over your incision to help relax the muscles in the areaand decrease discomfort. Please take your medication as prescribed. If you are not having good pain control, please call and speak to the nurse in the Thoracic Clinic or the Thoracic Surgeon preparation plant repairer after hours. Sleep: Try to establish normal sleep patterns. Long naps during the day may make it hard for you to sleep at night. Use the pain medication at bedtime for the first week at home if needed. Bowel Movements: After surgery, your bowel movements may not be regular for you, but you should be able to get back to your daily routine quickly. Please make sure to take the stool softeners or mild laxatives as prescribed to get back to your normal routine. If you do not have a bowel movement for more than 2 days, please call the office. Follow up appointments: You will see Dr. Servin in 2 weeks with a chest Xray within one hour of the appointment. A letter will be mailed to you confirming your appointment information. You should arrange to see your primary care physician, in two weeks. Future Appointments Date Time Provider Department Center 03/01/2017 1:00 PM [facility] DX ROOM 8 Xray [facility] Rad Clin documented in this encounter Progress Notes Isis Marquez RN - 03/01/2017 5:39 PM EST Patient Name: Amanuel Hussein Patient Age: 61 y.o. Birthdate: 1955 Admit date: 02/28/2017 Attending Physician: Al Servin MD Pt discharged home with no services. Discharge instructions provided, pt and verbalized understanding. Aware of when to call MD and future appointments. IVs d/c'johanna. Pt walked off unit with his . Shiloh Ceballos DT - 03/01/2017 10:31 AM EST Patient Active Problem List Diagnosis Date Noted ??? Hospital-Paraesophageal hernia 02/28/2017 ??? Hiatal hernia 11/30/2016 ??? Esophageal ulcer 10/16/2012 ??? Hematemesis 10/16/2012 Reason for Nutrition Intervention: Consult Diet Order: Currently Sips and Chips Appetite: Poor - Fair Food allergies: NKFA Ht Readings from Last 3 Encounters: 02/28/17 175.3 cm (5' 9) 01/29/17 175.3 cm (5' 9) 01/26/17 175 cm (5' 8.9) Wt Readings from Last 3 Encounters: 03/01/17 93.9 kg (207 lb) 01/29/17 94.1 kg (207 lb 6.4 oz) 01/26/17 93.4 kg (206 lb) Body mass index is 30.57 kg/(m^2). Education: Full Liquid guidelines. Marii dietary guidelines. Verbalized good understanding. Education material, with means of contact provided. Assessment: Patient seen for consult: education for post-marii diet: full liquids 4d, soft diet after. Patient verbalized good understanding of post-op diet guidelines and timelines for following bothdiets. Went over full liquid diet instruction and emphasized that it was to be followed first for 4 days upon discharge home. Encouraged drinking boost or similar supplements to get adequate calories and protein. Provided pt with Boost coupon for home use. Pt thankful. Went over marii diet education and emphasized this diet will begin on day 5 and continue to follow marii diet until follow up appointment in 2 weeks. Pt understood. Assistant Strength Coach emphasized the importance of no carbonated beverages and no s traw use and why. Pt understood. Assistant Strength Coach and pt discussed both diets and foods/ liquids allowed and not allowed in great detail. Patient did not have any questions about either diet, encouraged him to contact Food and Nutrition Services if any questions should arise when discharged. Contact informationwas provided. Nutrition will continue to follow. Nutrition Plan: Diet: Full Liquid x 4 days. Diet: Marii diet to begin on day 5- continue until follow up with doctor in 2 weeks. Marii Guidelines provided. No carbonated beverages. No straw use. Encourage good po intake upon diet advancement. Supplemental shakes for home use. Monitor weight. Support and encouragement provided. Nutrition services to follow weekly thru hospital course unless consulted in the interim. KARY Chew Tyler Bailey MD - 02/28/2017 4:28 PM EST Surgery Post Op Check Amanuel Hussein is a 61 y.o. male status post robot-assisted paraesophageal hernia repair with fundoplasty S: No nausea/vomiting, chest pain, SOB, abdominal pain. Pain well controlled with RN HEDIS, offers no complaints O: Temp: [36.2 ??C (97.2 ??F)-36.9 ??C (98.4 ??F)] Heart Rate: [62-74] Resp: [11-16] BP: (120-149)/(65-99) SpO2: [92 %-100 %] Heart Rate from SPO2: [85 bpm-90 bpm] I/O this shift: In: 2525 [P.O.:25; I.V.:2500] Out: 1050 [Urine:650; Blood:400] UOP since OR: 250cc Physical Exam General: NAD, resting comfortably HEENT: PERRL, anicteric sclerae CVS: Regular rate and rhythm, no murmurs rubs or gallops Pulm: Nonlabored respirations on RA Abd: soft, non tender, non distended, +BS; incisions c/d/i without drainage Ext: Warm, well-perfused, no edema Neuro: nonfocal, moving all extremities. CXR 02/28: IMPRESSION No pneumothorax. Possible small left pleural effusion. Lab Results Component Value Date WBC 11.2 (H) 02/28/2017 RBC 4.18 (L) 02/28/2017 HGB 13.6 (L) 02/28/2017 HCT 38.9 (L) 02/28/2017 MCV 93.1 02/28/2017 MCH 32.5 (H) 02/28/2017 MCHC 35.0 02/28/2017 PLATELET 197 02/28/2017 RDWCV 12.2 02/28/2017 Lab Results Component Value Date Sodium 140 02/28/2017 Potassium 3.8 02/28/2017 Chloride 104 02/28/2017 CO2 25 02/28/2017 BUN 12 02/28/2017 Creatinine 0.88 02/28/2017 AP Amanuel Hussein is a 61 y.o. male status post robot-assisted paraesophageal hernia repair with fundoplasty. He is currently in stable condition and recovering well - pain well controlled with RN HEDIS - hemodynamically stable - UOP adequate, has yet to void post fleming removal however - sips and chips tonight - swallow study Isis Marquez RN - 02/28/2017 2:47 PM EST Victoriano arrived on the unit with his . He is A&Ox4, dozing between care. VSS, Lap sites with glue intact, KEIKO. LR running at 100mL/hr. Pt oriented to room, sips & chips given, pt tolerating well. Pamela Ruano RN - 02/28/2017 12:07 PM EST Arrived pacu #2, monitors placed, alarms set. Abd. Port sites x 5 open to air. 12:15 milly PO ice chips with no nausea, denies pain at op site, VSS, meets D/C criteria documented in this encounter H&P Notes Rosa Bill PA - 02/28/2017 6:09 AM EST Patient Name: Amanuel Hussein Patient Age: 61 y.o. Birthdate: 1955 Admit date: 02/28/2017 Attending Physician: Al Servin MD Thoracic Surgery Preop NAME: Amanuel Hussein DATE: 02/28/17 SURGEON: AL SERVIN PROCEDURE: Esophagoscopy. Laparoscopic, robot assisted repair of paraesophageal hernia with partial fundoplication BRIEF HISTORY: Amanuel Hussein is a 61 y.o. male with a small to moderate hiatal??hernia that issymptomatic with??recurrent bleeding ulceration and melena The patient reports no interval change. There has been no interval medical illness or hospitalizations. Questions have been addressed. Smoking HX: History Smoking Status ??? Former Smoker ??? Packs/day: 1.50 ??? Years: 20.00 ??? Quit date: 1981 Smokeless Tobacco ??? Never Used PMH: Patient Active Problem List Diagnosis Date Noted ??? Hiatal hernia 11/30/2016 ??? Esophageal ulcer 10/16/2012 ??? Hematemesis 10/16/2012 PSH: Past Surgical History: Procedure Laterality Date ??? PRO COLONOSCOPY, DIAGNOSTIC 12/04/2012 COLONOSCOPY, DIAGNOSTIC performed by Real Jones MD at [facility] ENDOSCOPY ??? PRO UPPER GI ENDOSCOPY, BIOPSY 12/04/2012 UPPER GASTROINTESTINAL ENDOSCOPY,WITH BIOPSY SINGLE OR MULTIPLE performed by Real Jones MD at [facility] ENDOSCOPY ??? PRO UPPER GI ENDOSCOPY, BIOPSY N/A 11/29/2016 UPPER GASTROINTESTINAL ENDOSCOPY,WITH BIOPSY SINGLE OR MULTIPLE (WRVU 2.49) performed by Kaiser Doyle MD at [facility] ENDOSCOPY MEDS: No current facility-administered medications on file prior to encounter. Current Outpatient Prescriptions on File Prior to Encounter Medication Sig Dispense Refill ??? pantoprazole (PROTONIX) 40 mg Tablet, Delayed Release (E.C.) Take 1 tablet by mouth 2 times daily (before meals). 60 tablet 3 ALL: No Known Allergies Physical Exam Most Recent Vitals: 02/28/17 0615 BP: 145/90 Pulse: 57 Resp: 16 Temp: 36.7 ??C (98.1 ??F) SpO2: 98% Gen: NAD, pleasant, lying in bed HEENT: normocephalic, atraumatic, EOMI, sclerae anicteric Neck: supple, trachea midline Card: RRR, no M/R/G appreciated Pulm: CTAB, no wheeze/ronchi/rales appreciated, non-labored breathing on RA Abd: soft, NT, BS+ Ext: warm, dry, no edema Neuro: A&Ox3, CN II-XII grossly intact, nonfocal, conversant LABS: Lab Results Component Value Date WBC 5.0 01/29/2017 RBC 4.32 (L) 01/29/2017 HGB 14.4 01/29/2017 HCT 41.9 01/29/2017 MCV 97.0 (H) 01/29/2017 MCH 33.3 (H) 01/29/2017 MCHC 34.4 01/29/2017 PLATELET 218 01/29/2017 RDWCV 11.7 01/29/2017 Lab Results Component Value Date/Time NA 141 01/29/2017 10:50 AM K 4.1 01/29/2017 10:50 AM CL 103 01/29/2017 10:50 AM CO2 26 01/29/2017 10:50 AM BUN 15 01/29/2017 10:50 AM CREATININE 1.04 01/29/2017 10:50 AM Esophageal Manometry 12/19/16: FINDINGS ?LES (lower esophageal sphincter) ?Distal border of LES identified at??48.4??cm. ?Proximal border of LES identified at 45.6??cm. ?Hiatal hernia present? Yes, sliding, 3 cm ?Basal pressure respiratory mean pressure??8.1??mmHg??(normal = 15-34 mmHg). ?Residual mean pressure (integrated relaxation pressure??- IRP)??6.0??mmHg??(normal = <15 mmHg). ? BODY OF ESOPHAGUS ?Water Swallows:??10. ?Failed:??80%. ?Transmitted (peristaltic):??20%. ?Panesophageal pressurization: 10% ?Premature:??0% ?Rapid:??0%?With large breaks:??0%. ?With small breaks:??0%. ?DCI??(distalcontractile integral):??850??mmHg-cm-s (normal is 450 to 5000?mmHg-cm-s). ?Contractile front velocity:??4??cm/s??(normal is <9.0 cm/s). ?Intrabolus pressure (average maximum):??14.8??mmHg??(normal is <17.0 mmHg). ?Distal latency:??6.3 ? UES (upper esophageal sphincter) ?Distal border of UES identified at??21.9??cm and extended to 19.7??cm. ?UES basal pressure??36??mmHg??(normal = 34-104 mmHg). ?Residual pressure??4.9??mmHg??(normal = <12 mmHg). ? IMPRESSION 1. Hypotensive LES resting pressure.??This predisposes some patients to GERD. 2. Normal LES relaxation??(IRP, integrated relaxation pressure). 3. Normal UES resting pressure. 4. Normal UES relaxation. 5. Abnormal motility in the body of the esophagus??best characterized as frequent failed peristalsisas only 2 of 10 swallows were transmitted. 6. Evidence of a sliding??hiatal hernia on this study. ?? 7. Normal DCI (distal contractile integral). ??This is a measure of contractile vigor. This is a measure only of the 2 transmitted swallows. 8. Normal intrabolus pressure. ??This is a measure of esophageal clearance. 9. The findings of low LES pressure and significantly abnormal motility in the body of the esophaguswith only 2 of 10 swallows being transmitted likely explains symptoms of reflux. In the occasional patient, these findings may indicate the presence of a connective tissue disorder. Clinical correlation is required. ? A barium swallow on 12/08/2016?shows some esophageal dysmotility with what was read as a normal GEjunction position. On my interpretation, there appears to be either a sliding hiatal hernia or a small type 3 paraesophageal hernia.??No reflux appreciated. ? An esophagoscopy on 11/29/16??shows ??A 4 cm hiatal hernia was present. One esophageal ulcer with no bleeding and no stigmata of recent bleeding was found 38 cm from the incisors (superior to the diaphragmatic pinch). There was minimal associated esophagitis.??The lesion was approximately 6-7 mm in largest dimension. The area was biopsied with a cold forceps for histology. Estimated blood loss was minimal. The entire examined stomach was normal. The examined duodenum was normal. ?Pathology showed: Ulcer in proximal stomach distal to GE junction: ??Squamocolumnar junctional mucosa (cardia type) with mild active and chronic inflammation, and pancreatic ?metaplasia. ??There is no evidence of intestinal??metaplasia and dysplasia. ? EGD and pathology [place] from 08/2012 [place] 11[place]2012 [place] [facility] [place]. Normal colonoscopy 11/2012 ? 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 IMPRESSION During this recording period, while the patient was on 40 mg of Nexium twice daily, there was no evidence of pathologic acid reflux into the distal esophagus. ? CT C/A/P from OSH 11/26/16 reviewed-demonstrates hiatal hernia on my read. ?? EKG (01/29/17): Sinus bradycardia with 1st degree A-V block Borderline criteria for Inferior infarct (cited on or before 05-SEP-2017) Abnormal ECG MED/CARD CLEARANCE/MIBI/VQ SCAN FILM ON PACS: CONSENT: Yes/EMR - Yes Assessment/Plan: Amanuel Hussein is a 61 y.o. male presenting today for planned Esophagoscopy, Laparoscopic, robot assisted repair of paraesophageal hernia with partial fundoplication due to symptomatic paraesophageal hernia. Consent signed and confirmed in chart. Questions addressed. Will proceedwith planned surgery. MAMADOU Escobedo 02/28/2017 Thoracic Surgery Service Pager [phone] documented in this encounter Miscellaneous Notes Plan of Care - Isis Marquez RN - 03/01/2017 4:34 PM EST Problem: Patient Care Overview Goal: Plan of Care Review Outcome: Ongoing (Interventions Implemented as Appropriate) 03/01/17 1630 Coping/Psychosocial Plan Of Care Reviewed With patient Plan of Care Review Progress progress toward functional goals as expected OUTCOME EVALUATION NOTE: OUTCOME SUMMARY: Victoriano had a quiet day. He had a swallow study and his diet was advanced to full liquid. He ambulated in the room and around the unit with mild increased pain. The RN HEDIS was discontinued, pain controlled with tylenol. Voiding adequately in urinal. Nata at bedside and attentive to patient. PLAN MOVING FORWARD: Encourage full liquid diet, as long as that goes well he should go home today or tomorrow. INDIVIDUALIZED FALL PREVENTION INTERVENTIONS: Patient-specific fall risk factors per assessment: [current deficits]: Recent procedure Assistance [level of assistance required for transfers and ambulation]: standby Supervision [direct monitoring required during toileting and ADLs]: Eyes on Surveillance [continuous indirect monitoring]: Call light within reach, purposeful rounding Patient-specific fall prevention interventions for sensory deficits provided, if applicable: Yes, lighting adjusted, IV pole out of path CPG GOAL OUTCOME EVALUATION: Initial Assessments - Mikayla Page RN - 03/01/2017 8:31 AM EST Office of Care Management Initial Assessment Mikayla Page RN reviewed record and discussed patient with Care Team. Source of Information: Chart review, MD report, & patient interview with present. Introduced self/reviewed role; services accepted. Reason for Hospitalization: 61 y.o. male status post robot-assisted paraesophageal hernia repair with fundoplasty on 02/28/17 Past Medical History: Diagnosis Date ??? GERD (gastroesophageal reflux disease) Hospitalizations Within the Past 30 Days: Last admission in 11/2016 for GI bleed Anticipated Length Of Stay (If known): 3-5 days Current Decision-Making Capacity: Self, A&Ox3, Full Capacity, Cognitively able to make medical decisions Advance Care Planning: None on file Current Coping/Education/Information Needs: Coping well Current Functional Ability: Independent Functional Status Prior to Admission: Independent Home Environment: Lives with spouse, daughter 18 years old at home, single family home, 2 [address] with rail. Bed/bath second floor. Drive. 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 [address] [place] [address] Social & Family Supports/Community Resources: Nata Extended Emergency Contact Information Primary Emergency Contact: Nata Hussein [address]: [address] [place] [address] Mobile Relation: Spouse Behavioral Health History: Denies Substance Use/Abuse: Denies smoking, alcohol use, and/or illicit drug use Other Pertinent/Service Specific Information: None Health/Prescription Coverage: Payor: GLORIA MARTIN / Plan: GLORIA MARTIN / Product Type: *No Product type* / Secondary Insurance: None Prescription Coverage: see above Preferred Pharmacy: Please use [facility] [address] [place] [address] RD AT [facility] [phone] [facility] [id number] Other: None Primary Care Provider: Dr. Zeynep MD [phone] Patient/Caregiver Goals of Treatment: Discharge home after swallow study completed. Potential Needs for Transition of Care: Rehab/SNF: NA Home Health: NA DME: NA Dialysis: NA Community Resources: pt is aware Transportation: /Sister, [place] Other: None Anticipated Barriers to Discharge/Special Considerations: No barriers anticipated. Plan: CM will maintain contact with patient & providers to coordinate any services needed for discharge. Mikayla Page, coal tram driver Pager [phone] Plan of Care - Rolando Chaparro RN - 03/01/2017 4:35 AM EST Problem: Patient Care Overview Goal: Plan of Care Review Outcome: Ongoing (Interventions Implemented as Appropriate) 03/01/17403 Coping/Psychosocial Plan Of Care Reviewed With patient Plan of Care Review Progress progress toward functional goals as expected OUTCOME EVALUATION NOTE: OUTCOME SUMMARY: VSS. UOP adequate. Lower lung lobes + for expiratory wheeze. Pt refused PO tylenol, continues to grimace. Repositioned self overnight. PLAN MOVING FORWARD: Pain management, encourage ambulation. INDIVIDUALIZED FALL PREVENTION INTERVENTIONS: Patient-specific fall risk factors per assessment: [current deficits]: Recent surgery, use of narcotics Assistance [level of assistance required for transfers and ambulation]: 1 A w/ Walker Supervision [direct monitoring required during toileting and ADLs]: Eyes on Surveillance [continuous indirect monitoring]: Call cohen in reach, purposeful roundingsue Patient-specific fall prevention interventions for sensory deficits provided, if applicable: [X] YesLighting adjusted for tasks, nonskid socks when out of bed. CPG GOAL OUTCOME EVALUATION: Ongoing. Goal: Individualization & Mutuality Outcome: Ongoing (Interventions Implemented as Appropriate) 03/01/17403 Individualization Patient Specific Preferences Call me Pastrana Goal: Fall Prevention-Safe Patient Handling Outcome: Ongoing (Interventions Implemented as Appropriate) 02/28/17192903/01/17403 Restraint Interventions Safety Promotion/Fall Prevention -- safety round/check completed;nonskid shoes/slippers when out of bed;activity supervised Rojo Fall Risk History of Falling 0 -- Secondary Diagnosis 15 -- Ambulatory Aids 0 -- Intravenous Therapy/Heparin/Saline Lock 20 -- Gait/Transferring 10 -- Mental Status 0 -- Score 45 -- OTHER Rojo Fall Risk High -- Positioning Body Position supine, head elevated -- Goal: Infection Control Outcome: Ongoing (Interventions Implemented as Appropriate) 02/28/171929 Safety Interventions Isolation Precautions standard precautions maintained Infection Prevention rest/sleep promoted Coping Strategies Supportive Measures active listening utilized;self-care encouraged Goal: Discharge Needs Assessment Outcome: Ongoing (Interventions Implemented as Appropriate) 03/01/17403 Discharge Needs Assessment Concerns To Be Addressed no discharge needs identified Goal: Interdisciplinary Rounds/Family Conf Outcome: Ongoing (Interventions Implemented as Appropriate) 03/01/17403 Interdisciplinary Rounds/Family Conf Participants nursing;patient Problem: Pain, Acute (Adult) Goal: Identify Related Risk Factors and Signs and Symptoms Related risk factors and signs and symptoms are identified upon initiation of Human Response Clinical Practice Guideline (CPG) Outcome: Ongoing (Interventions Implemented as Appropriate) 03/01/17403 Pain, Acute Related Risk Factors (Acute Pain) procedure/treatment Signs and Symptoms (Acute Pain) fear of reinjury;facial mask of pain/grimace Goal: Acceptable Pain Control/Comfort Level Patient will demonstrate the desired outcomes by discharge/transition of care. Outcome: Ongoing (Interventions Implemented as Appropriate) 03/01/17403 Pain, Acute (Adult) Acceptable Pain Control/Comfort Level making progress toward outcome Brief Op Note - Al Servin MD - 02/28/2017 12:14 PM EST Brief Operative Note Patient Name: Amanuel Hussein : [id number] MR#: [id number] Case Date: 02/28/2017 Surgeon: Surgeon(s) and Role: * Al Servin MD - Primary * Howard Escamilla PA - Physician Maintainer Central Office * Yary Forbes PA - Physician Maintainer Central Office Preoperative diagnosis: hiatal hernia with history of bleeding Postoperative diagnosis: sliding hiatal hernia Procedure(s) (LRB): ROBOT XI LAPAROSCOPIC PARAESOPHAGEAL HERNIA REPAIR W/FUNDOPLASTY,W/O MESH (WRVU 26.6) (N/A) MODIFIER ROBOTRIYA XI (N/A) EGD, UPPER GI ENDOSCOPY (N/A) Anesthesia: General Findings: EGD-- mild Barretts Of <1cm at GE junction Hernia reduced, hiatus closed with pledgeted ethabond interrupted sutures x 2 Anterior wrap performed Complications: none Estimated Blood Loss: 400 mL Specimens removed during surgery: Order Name Source Comment Collection Info Order Time SPECIMEN TO PATHOLOGY (SURGICAL OR DERM) hiatal hernia with history of bleeding gastroesophageal fat pad 02/28/2017 9:57 AM Time removed from patient: 9:57 AM Fluids: Intraprocedure Crystalloid Total None PRBCs: none (See Anesthesia Record/Report for Other Blood Products) Urine Output: 325 mL Drains: none Disposition: awakened from anesthesia, extubated and taken to the recovery room in a stable condition, having suffered no apparent untoward event. Condition: doing well without problems (Please see the Surgical Encounter Summary for any Implant and Specimen details pertinent to this patient.) Infection Bundle used? N/A Op Note - Al Servin MD - 02/28/2017 12:11 PM EST [facility] [place] Patient Name: Amanuel Hussein : [id number] MR#: [id number] Case Date: 02/28/2017 Surgeon: Surgeon(s) and Role: * Al Servin MD - Primary * Howard Escamilla PA - Physician Maintainer Central Office * Yary Forbes PA - Physician Maintainer Central Office Preoperative diagnosis: hiatal hernia with history of bleeding Postoperative diagnosis: Sliding hiatal hernia Procedure(s) (LRB): ROBOT XI LAPAROSCOPIC PARAESOPHAGEAL HERNIA REPAIR W/FUNDOPLASTY,W/O MESH (WRVU 26.6) (N/A) MODIFIER ROBOTRIYA XI (N/A) EGD, UPPER GI ENDOSCOPY (N/A) Findings: On EGD there was evidence of a sliding hiatal hernia and short segment Latif's at the GE junction. The hiatal hernia was able to be reduced and the distal esophagus was circumferentially dissected. The patient had a narrow J-shaped stomach. The short gastric vessels were taken down with the vessel sealer. One of these vessels was incompletely sealed and there was bleeding from both the gastric and splenic side of the vessel. This was able to be controlled with bi-polar cautery. An attempt was made to pass the fundus posterior to the esophagus to create a Toupet fundoplication. Due to the narrow fundus, this was difficult to pass and given his prior manometry I was concerned about making the wrap too tight. Consequently, I elected to perform an anterior Jacek fundoplication. The patienttolerated the procedure well. Anesthesia: General Estimated Blood Loss: 400 mL Specimens removed during surgery: Order Name Source Comment Collection Info Order Time SPECIMEN TO PATHOLOGY (SURGICAL OR DERM) hiatal hernia with history of bleeding gastroesophageal fat pad 02/28/2017 9:57 AM Time removed from patient: 9:57 AM Drains: None Surgical Closure: Primary Closure - closure of ALL tissue levels during the original surgery regardless of wires, wickes, drains, or other devices extruding through the incision Disposition: awakened from anesthesia, extubated and taken to the recovery room in a stable condition, having suffered no apparent untoward event. Condition: doing well without problems (Please see the Surgical Encounter Summary for any Implant and Specimen details pertinent to this patient.) HPI/Surgical Indications: In summary, ??Jovita??is a 61 year old male??with a small to moderate hiatal??hernia that is symptomatic with??recurrent bleeding ulceration and melena, most recently inSept of 2016. He has had no further episodes of bleeding since being restarted on his PPI.?He??does??have anemia, which is often associated with this problem. Today, we reviewed the results of his manometry confirming a hiatal hernia and also demonstrating 80% failed swallows. It is difficultyto know if this is related to his hiatal hernia or an intrinsic abnormality in the esophagus, or a combination of both. We??discussed the surgical correction of this problem with a minimally invasive hiatal hernia repair and given the results of manometry a partial??fundoplication. He has had numerousbleeding incidents over the last decade and this is likely related to mechanical irritation of the stomach. He had a negative pH Sommer test in 2012 at the time of one of these episodes, but was on a PPI at that time. ??I discussed his most recent EGD with Dr. 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 He is agreeable to surgery. Procedure Description: The patient was identified in the preoperative holding area. He was brought to the operating room. A second verification process including the patient's name, medical record number, date of and planned procedure was performed. He was placed supine on the operating room table. Sequential compression devices and subcutaneous heparin were administered. He received appropriate prophylactic IV antibiotics prior to the incision. General anesthesia was induced by the Anesthesiology staff with a single-lumen endotracheal tube. A timeout was performed. Flexible diagnostic esophagoscope was inserted down the oropharynx and into the esophagus under direct vision. This demonstrated no abnormalities in the proximal or mid esophagus. The scope was advanced down to the level of the GE junction which was present at approximately 40 cm from the incisors. 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 The scope easily passed through the GE junction and into the stomach. This was narrowed by the diaphragm, consistent with a sliding hiatal hernia. The scope was advanced into the stomach. There was no evidence of any obvious current ulcerations. The scope was advanced into the duodenum and there was no evidence of any mucosal abnormality or ulcerations to the second portion of the duodenum. The scope was brought back into the stomach and retroflexed. There was evidence of a sliding hiatal hernia. The stomach was desufflated. The scope was removed. An orogastric tube was placed by the Anesthesiology staff. The patient was placed in the supine position with his left arm tucked and his right arm abducted. He was prepped and draped in the usual, sterile fashion. An 8 mm incision was made just above and to the patient's left of the umbilicus. A Veress needle was placed into the peritoneal cavity. The saline drop test was negative. The peritoneum was insufflated with carbon dioxide gas. This went without incident. An 8 mm robotic port with a blunt tip was placed in through the incision and into the peritoneum. There was egress of gas. The robotic laparoscope was then inserted. This confirmed intraperitoneal placement of the port with good insufflation of the abdomen. Three additional 8 mm robotic ports were then placed under direct vision. An additional 5 mm port was placed far laterally in the right upper quadrant for the liver retractor and a 12 mm printer assistant port was placed in the right lower quadrant. The liver retractor was inserted through the right upper quadrant lateral port and placed underneath the liver. The patient was then placed in steep reversed Trendelenburg positioning. The robot was brought onto the field and docked to the patient. The instruments were inserted under direct vision. There was no injury to the underlying viscera during instrument placement and docking of the robot. Attention was turned to the hiatus. The gastrohepatic ligament was divided with a vessel sealer. There was no replaced right hepatic artery. Moving anteriorly, the phrenoesophageal ligament was divided with electrocautery. This revealed the anterior portions of both the right and left crux. The short gastrics were then taken down with the vessel sealer. One of the superior short gastrics was incompletely sealed by the vessel sealer. Both the gastric and the splenic side of the vessel had pulsatile bleeding. The gastric side was grabbed with the bipolar cautery and this was quickly controlled. The splenic side retracted slightly and took several minutes to completely control. This was eventually able to be controlled with bipolar cautery. There was no evidence of any ongoing bleeding. The dissection was carried up around the superior portion of the fundus. The left crux was identified and this was cleared. The stomach was then rotated inferiorly and laterally to the left. Dissection was carried along the right anterior border of the crux muscle down to the junction with the left crux. The esophagus was circumferentially dissected at the GE junction. A half-inch Stewart drain was placed around the distal esophagus and proximal stomach and this was retracted inferiorly. The distal esophagus was circumferentially dissected up into the mediastinum. Care was taken to avoid any injury to the anterior or posterior vagus nerves. Attention was taken off the Hayley drain and there was approximately 3.5 to 4 cm of intraabdominal esophagus present. The stomach was then retracted laterally to the left. A single 0 Ethibond interrupted suture with pledgets was placed posteriorly to close the crura. An additional anterior 0 Ethibond suture with pledgets was placed anteriorly. This narrowed the hiatus nicely without making it too tight. The patient had a relatively narrow, J-shaped stomach. I attempted to bring the fundus posteriorly around the distal aspect of the esophagus. However, due to the narrow fundus, this turned out to be quite difficult. Given the patient's previous esophageal manometry with 80% of failed swallows, I was concerned about making a posterior partial fundoplication too tight, resulting in dysphagia. Consequently, I elected to perform an anterior Jacek fundoplication. The medial aspect of the fundus was grasped and 2 interrupted 2-0 Ethibond sutures were placed in the standard fashion. The fundus was then wrapped anteriorly approximately 180 degrees. Stitches were placed at the division line of the short gastrics and then brought over to the lesser curvature of the stomach. The superior portion of the wrap was created so that this was at the GE junction. A total of 3 interrupted sutures were used for this portion. At this point, I replaced the esophagoscope to ensure that there was easy passage of the scope down into the GE junction and into the stomach. This was the case. The scope passed through easily. The GE junction was present at 43cm from the incisors. Retroflexion demonstrated an adequate partial fundoplication. The stomach was desufflated and the scope was removed. The DaVinci instruments were then removed under direct vision. The robot was undocked from the patient, removed from the field. The liver retractor was removed. The patient was placed in the supine position. The 12 mm printer assistant incision port was removed and the fascia was closed using the Sae-Yordy device with a 2-0 Vicryl suture. A final inspection of the abdomen demonstrated no evidence of any ongoing bleeding. The ports were removed under direct vision following desufflation of the abdomen. The 5 and 8 mm port sites were closed with 4-0 Monocryl. The printer assistant port incision was also closed with 4-0 Monocryl. Sterile dressings with Dermabond were applied to the incisions. The patient tolerated the procedure well. There were no apparent complications. All sponge and instrument counts were correct at the end of the case. He was awoken from general anesthesia and extubated in the operating room. He was taken to the recovery room. I was scrubbed and was present for the entire procedure. I was assisted by [facility], as no qualified resident was available. Infection Bundle used? See Brief Op note Al Servin MD 02/28/2017 documented in this encounter Plan of Treatment Upcoming Encounters Date Type Specialty Care Team Description 01/19/2022 Office Visit Radiation Oncology Clover Covarrubias APRN [facility] RADIATION ONCOLO [place], [place] [address] (Wo rk) 12/04/2022 Hospital Encounter Gastroenterology Real Jones MD [facility] GASTROENTEROLOGY DEPT. [place], [place] [address] (Wo rk) Scheduled Procedures Name Priority Associated Diagnoses Date/Time COLONOSCOPY, DIAGNOSTIC 10 yr f/up documented as of this encounter Procedures Procedure Name Priority Date/Time Associated Diagnosis Comme nts AUTOMATION APPLICATION ENGINEER SCAN 03/02/2017 12:00 Res ults for this AM EST procedure are i n the results section. XR FLUORO BARIUM Routine 03/01/2017 1:46 Results for this SWALLOW (SINGLE PM EST procedure ar e in CONTRAST) the results section. HEMOGRAM Routine 03/01/2017 4:55 Results for this AM EST procedure are i n the results section. BASIC METABOLIC PANEL Routine 03/01/2017 4:55 Res ults for this (NON-FASTING) AM EST procedure are in the results section. XR CHEST ONE VIEW Routine 02/28/2017 12:39 Result s for this PM EST procedure are i n the results section. HEMOGRAM STAT 02/28/2017 12:19 Results for this PM EST procedure are i n the results section. DIFFERENTIAL, STAT 02/28/2017 12:19 Results fo r this AUTOMATED PM EST procedure are i n the results section. CREATININE STAT 02/28/2017 12:19 Results for this PM EST procedure are i n the results section. CBC (WITH DIFF) STAT 02/28/2017 12:19 PM EST BUN STAT 02/28/2017 12:19 Results for this PM EST procedure are i n the results section. ELECTROLYTES PANEL STAT 02/28/2017 12:19 Resul ts for this PM EST procedure are i n the results section. BLOOD GAS 2 ARTERIAL Routine 02/28/2017 11:04 Res ults for this AM EST procedure are i n the results section. SURGICAL PATHOLOGY Routine 02/28/2017 9:57 Result s for this REPORT AM EST procedure are i n the results section. SPECIMEN TO PATHOLOGY Routine 02/28/2017 9:57 Res ults for this AM EST procedure are i n the results section. BLOOD GAS 2 ARTERIAL Routine 02/28/2017 9:21 Resu lts for this AM EST procedure are i n the results section. PREPARE RBC STAT 02/28/2017 9:05 Results for this AM EST procedure are i n the results section. ABORH RECHECK STATUS Routine 02/28/2017 7:52 Resu lts for this AM EST procedure are i n the results section. ABO/RH TYPING Routine 02/28/2017 7:52 Results for this AM EST procedure are i n the results section. ANTIBODY SCREEN Routine 02/28/2017 7:52 Results f or this AM EST procedure are i n the results section. TYPE AND SCREEN Routine 02/28/2017 7:52 ([facility] AM EST EGD, UPPER GI Yes 02/28/2017 7:30 Paraesophageal hiatal ENDOSCOPY AM EST hernia MODIFIER ROBOT,DAVINCI Yes 02/28/2017 7:30 Paraesophageal hiatal XI AM EST hernia ROBOT XI LAPAROSCOPIC Yes 02/28/2017 7:30 Paraesophageal h iatal PARAESOPHAGEAL HERNIA AM EST hernia REPAIR W/FUNDOPLASTY,W/O MESH (WRVU 26.6) POCT GLUCOSE Routine 02/28/2017 6:28 Results for this AM EST procedure are i n the results section. UPPER GI ENDOSCOPY Routine 02/28/2017 5:54 Paraesophageal hiat al AM EST hernia documented in this encounter Results XR Chest [...] findings, Roc dean 03/16/2017 8:45 AM Al Servin MD IMG DX ORDERABLES SCAN DOC: AUTOMATION APPLICATION ENGINEER (03/02/2017 12:00 AM EST) Narrative 03/02/2017 12:00 AM EST This result has an attachment that is no t available. Ordered by an unspecified provider. Scanning Provider MEDIA MGR SCAN EXT ORDR/RSLT XR Fluoro Barium Swallow (03/01/2017 1:46 PM EST) Anatomical Region Laterality Modality N/A Radio Fluoroscopy Specimen (Source) Anatomical Location Collection Method / Collectio n Time Received Time / Laterality Volume Impressions 03/01/2017 4:37 PM EST 1. ??Postoperative changes consistent with hernia repair. 2. ??No evidence of leak. 3. ??Mild left lower lobe atelectasis. I have personally reviewed the image(s) and the residents interpretation and agree with the findings, Abdulkadir Vyas at 03/01/2017 4:37 PM Narrative 03/01/2017 4:37 PM EST EXAMINATION: XR FLUORO BARIUM SWALLOW CLINICAL HISTORY: POD1 s/p lap robotic p araesophageal hernia repair and anterior wrap. Evaluate for leak. TECHNIQUE: An upright reject opener and filler radiograph was obtained . Single contrast esophagram was performed with water-soluble contrast (O mnipaque 300) with attention to the distal esophagus and gastroesophageal ju nction. Fluoroscopic spot films were obtained. The patient was imaged in the standing LPO ; 30 degree inclination LPO, supine and RPO; and steep LPO posit ions. Fluoro time: 0.1 minutes COMPARISON: Chest radiograph 02/28/2017. Preoperative barium swallow 12/08/2016 FINDINGS: Customer Service Advocate radiograph: There are streaky opacities at the media l left lung base, most consistent with atelectasis. The stomach is not distended. Nonobstructive bowel gas pattern within the visualized upper abdomen. No gross pneumoperitoneum. There is a smooth contoured narrowing of the distal esophagus proximal to the gastroesophageal junction and gastric fu ndus, consistent with postoperative changes status post paraesophageal herni a repair and anterior wrap. The gastroesophageal junction is positioned below the diaphragm. No hernia. No extraluminal contrast to suggest leak. C ontrast passed promptly from the stomach into nondilated loops of small bowel. Procedure Note Abdulkadir Vyas MD - 03/01/2017Format ting of this note might be different from the original. EXAMINATION: XR FLUORO BARIUM SWALLOW CLINICAL HISTORY: POD1 s/p lap robotic p araesophageal hernia repair and anterior wrap. Evaluate for leak. TECHNIQUE: An upright reject opener and filler radiograph was obtained . Single contrast esophagram was performed with water-soluble contrast (O mnipaque 300) with attention to the distal esophagus and gastroesophageal ju nction. Fluoroscopic spot films were obtained. The patient was imaged in the standing LPO ; 30 degree inclination LPO, supine and RPO; and steep LPO posit ions. Fluoro time: 0.1 minutes COMPARISON: Chest radiograph 02/28/2017. Preoperative barium swallow 12/08/2016 FINDINGS: Customer Service Advocate radiograph: There are streaky opacities at the media l left lung base, most consistent with atelectasis. The stomach is not distended. Nonobstructive bowel gas pattern within the visualized upper abdomen. No gross pneumoperitoneum. There is a smooth contoured narrowing of the distal esophagus proximal to the gastroesophageal junction and gastric fu ndus, consistent with postoperative changes status post paraesophageal herni a repair and anterior wrap. The gastroesophageal junction is positioned below the diaphragm. No hernia. No extraluminal contrast to suggest leak. C ontrast passed promptly from the stomach into nondilated loops of small bowel. IMPRESSION 1. Postoperative changes consistent with hernia repair. 2. No evidence of leak. 3. Mild left lower lobe atelectasis. I have personally reviewed the image(s) and the residents interpretation and agree with the findings, Abdulkadir Vyas at 03/01/2017 4:37 PM Al Servin MD IMG FLUORO ORDERABLES (ABNORMAL) Basic Metabolic Panel (non-fasting) (03/01/2017 4:55 AM EST) P athologist Signature Glucose Lvl 116 65 - 199 [facility] mg/dL [facility] Comment: Diabetes: >=200 mg/dL plus symp toms BUN 14 10 - 20 mg/dL [facility] Creatinine 0.87 0.80 - 1.50 mg/dL [facility] Sodium 138 135 - 145 mmol/L [facility] Potassium 3.8 3.5 - 5.0 mmol/L [facility] Comment: Please note: ??Patients with WBC >100,00 0 may have falsely elevated Potassium levels. ??For accurate Potassium quantif ication in these patients send serum separator tube (gold top) for subsequent determinations. ??Contact the Clinical Chemistry Laboratory if there are any qu estions. Chloride 103 98 - 107 mmol/L [facility] CO2 25 22 - 31 mmol/L [facility] Anion Gap 10 5 - 15 mmol/L [facility] Calcium 7.9 (L) 8.5 - 10.5 mg/dL [facility] Estimated GFR >60 >=60 [facility] Comment: The reported eGFR should be multiplied b y 1.2 for patients. The MDRD is not an appropriate measure o f renal function for patients with body mass extremes or in patients with acute kidney failure. [email or web address] [email or web address] Specimen Anatomical Collection Method Collection Time Receive d Time (Source) Location / / Volume Laterality Blood specimen 03/01/2017 4:55 AM 017 5:18 (specimen) EST AM EST Resulting Agency Comment Spec In Lab Al Servin MD CHEMISTRY ORDERABLES Performing Organization Address City/State/[place] [address] (ABNORMAL) Hemogram (03/01/2017 4:55 AM EST) Analysis Performed At Patho logist Time Signature WBC 9.4 4.0 - 9.[address] [facility] [address] LABORATORY RBC 3.92 (L) 4.58 - [place]A MIGUELINA 5.54 [facility] x10(6)/[facility] LABORATORY Hemoglobin 12.6 (L) 13.7 - [facility] 16.5 gm/dL [facility] Hematocrit 36.7 (L) 40.5 - [facility] 48.5 % [facility] MCV 93.6 (H) 82.9 - [facility] 93.1 [facility] LABORATORY MCH 32.1 27.5 - [facility] MIGUELINA 32.1 pg [facility] MCHC 34.3 32.0 - [facility] MIGUELINA 35.7 gm/dL [facility] Platelets 192 145 - 357 [facility] x10(3)/[facility] LABORATORY RDWSD 41.9 36.0 - [facility] MIGUELINA 45.0 [facility] LABORATORY RDWCV 12.2 11.4 - [facility] MIGUELINA 13.8 % [facility] MPV 9.0 7.6 - 12.9 [facility] LABORATORY nRBC % Auto 0.0 % [facility] nRBC Abs Auto 0.000 0.000 - [facility] MIGUELINA 0.000 [facility] x10(3)/[facility] LABORATORY Specimen Anatomical Collection Method Collection Time Receive d Time (Source) Location / / Volume Laterality Blood specimen 03/01/2017 4:55 AM 017 5:18 (specimen) EST AM EST Resulting Agency Comment Spec In Lab Al Servin MD HEMATOLOGY ORDERABLES Performing Organization Address City/State/[place] [address] XR Chest PA or AP 1 view (02/28/2017 12:39 PM EST) Anatomical Region Laterality Modality Chest N/A Digital Radiography Specimen (Source) Anatomical Location Collection Method / Collectio n Time Received Time / Laterality Volume Impressions 02/28/2017 1:33 PM EST No pneumothorax. Possible small left pleural effusion. I have personally reviewed the image(s) and the residents interpretation and agree with the findings, Roc dean 02/28/2017 1:33 PM Narrative 02/28/2017 1:33 PM EST EXAMINATION: XR CHEST PA OR AP 1 VIEW CLINICAL HISTORY: s/p robotic paraesopha geal hernia repair, r/o PTX TECHNIQUE: AP semiupright view of the chest COMPARISON: Radiograph 11/28/2016 FINDINGS: Lung volumes are low, accentuating heart size and pulmonary vasculature. Blunting of the left costophrenic angle may indicate atelectasis or trace pleural effusion. No focal consolidation or pneumothorax. Cardiomediastinal silhouette is unchanged allowing for dif ferences in technique and inspiration. Procedure Note Roc Alfaro MD - 02/28/2017Formatt ing of this note might be different from the original. EXAMINATION: XR CHEST PA OR AP 1 VIEW CLINICAL HISTORY: s/p robotic paraesopha geal hernia repair, r/o PTX TECHNIQUE: AP semiupright view of the chest COMPARISON: Radiograph 11/28/2016 FINDINGS: Lung volumes are low, accentuating heart size and pulmonary vasculature. Blunting of the left costophrenic angle may indicate atelectasis or trace pleural effusion. No focal consolidation or pneumothorax. Cardiomediastinal silhouette is unchanged allowing for dif ferences in technique and inspiration. IMPRESSION No pneumothorax. Possible small left ple ural effusion. I have personally reviewed the image(s) and the residents interpretation and agree with the findings, Roc dean 02/28/2017 1:33 PM Al Servin MD IMG DX ORDERABLES (ABNORMAL) Differential, Automated (02/28/2017 12:19 PM EST) [facility] Method Time Signature Neutrophils % 90.3 % [facility] Neutr Abs (ANC) 10.11 (H) 1.70 - [facility] 6.10 [facility] x10(3)/[facility] LABORATORY Lymphocytes % 5.0 % [facility] Lymphocytes Abs 0.6 (L) 0.9 - 3.2 [facility] x10(3)/[facility] LABORATORY Monocytes % 3.3 % [facility] Monocyte Abs 0.4 0.3 - 0.9 [facility] x10(3)/[facility] LABORATORY Eosinophils % 0.1 % [facility] Eosinophils Abs 0.0 0.0 - 0.4 [facility] x10(3)/[facility] LABORATORY Basophils % 0.3 % [facility] Basophils Abs 0.0 0.0 - 0.1 [facility] x10(3)/[facility] LABORATORY Immature Gran % 1.00 % [facility] Comment: Immature granulocytes(IG's)percentage an d absolute count will include metamyelocytes, myelocytes, and promyelo cytes. Blood smears from CBCs yielding IG's will be scanned manually for concor dance. If this scan disagrees with the automated IG or if promyelocytes are not ed, a manual differential will be performed. Malika Gran Abs 0.11 (H) 0.00 - 0.04 x10(3)/[facility] LABORATORY Specimen Anatomical Collection Method Collection Time Receive d Time (Source) Location / / Volume Laterality Blood specimen 02/28/2017 12:19 7 (specimen) PM EST 12:25 PM EST Resulting Agency Comment Spec In Lab Al Servin MD HEMATOLOGY ORDERABLES Performing Organization Address City/State/[place] [address] (ABNORMAL) Hemogram (02/28/2017 12:19 PM EST) Analysis Performed At Patho logist Time Signature WBC 11.2 (H) 4.0 - 9.5 [facility] x10(3)/[facility] LABORATORY RBC 4.18 (L) 4.58 - [facility] 5.54 [facility] x10(6)/[facility] LABORATORY Hemoglobin 13.6 (L) 13.7 - [facility] 16.5 gm/dL [facility] Hematocrit 38.9 (L) 40.5 - [facility] 48.5 % [facility] MCV 93.1 82.9 - [facility] MIGUELINA 93.1 [facility] LABORATORY MCH 32.5 (H) 27.5 - [facility] 32.1 pg [facility] MCHC 35.0 32.0 - [facility] 35.7 gm/dL [facility] Platelets 197 145 - 357 [facility] x10(3)/[facility] LABORATORY RDWSD 41.7 36.0 - [facility] [place] 45.0 [facility] LABORATORY RDWCV 12.2 11.4 - [facility] MIGUELINA 13.8 % [facility] MPV 8.6 7.6 - 12.9 [facility] LABORATORY nRBC % Auto 0.0 % [facility] nRBC Abs Auto 0.000 0.000 - [facility] MIGUELINA 0.000 [facility] x10(3)/[facility] LABORATORY Specimen Anatomical Collection Method Collection Time Receive d Time (Source) Location / / Volume Laterality Blood specimen 02/28/2017 12:19 7 (specimen) PM EST 12:25 PM EST Resulting Agency Comment Spec In Lab Al Servin MD HEMATOLOGY ORDERABLES Performing Organization Address City/State/[place] [address] Creatinine (02/28/2017 12:19 PM EST) P athologist Signature Creatinine 0.88 0.80 - [facility] MIGUELINA 1.50 mg/dL [facility] Estimated GFR >60 >=60 [facility] Comment: The reported eGFR should be multiplied b y 1.2 for patients. The MDRD is not an appropriate measure o f renal function for patients with body mass extremes or in patients with acute kidney failure. http://[email or web address]/DHnkdep [email or web address]://[email or web address]/DHMCnkf Specimen Anatomical Collection Method Collection Time Receive d Time (Source) Location / / Volume Laterality Blood specimen 02/28/2017 12:19 7 (specimen) PM EST 12:25 PM EST Resulting Agency Comment Spec In Lab Al Servin MD CHEMISTRY ORDERABLES Performing Organization Address City/State/[place] [address] BUN (02/28/2017 12:19 PM EST) P athologist Signature BUN 12 10 - 20 [facility] mg[facility] Specimen Anatomical Collection Method Collection Time Receive d Time (Source) Location / / Volume Laterality Blood specimen 02/28/2017 12:19 7 (specimen) PM EST 12:25 PM EST Resulting Agency Comment Spec In Lab Al Servin MD CHEMISTRY ORDERABLES Performing Organization Address City/[facility]/[place] [address] Electrolytes panel (02/28/2017 12:19 PM EST) P athologist Signature Sodium 140 135 - 145 [facility] mmol/L [facility] Potassium 3.8 3.5 - 5.0 [facility] mmol/L [facility] Comment: Please note: ??Patients with WBC >100,00 0 may have falsely elevated Potassium levels. ??For accurate Potassium quantif ication in these patients send serum separator tube (gold top) for subsequent determinations. ??Contact the Clinical Chemistry Laboratory if there are any qu estions. Chloride 104 98 - 107 mmol/L [facility] CO2 25 22 - 31 mmol/L [facility] Anion Gap 11 5 - 15 mmol/L [facility] LABORATORY Specimen Anatomical Collection Method Collection Time Receive d Time (Source) Location / / Volume Laterality Blood specimen 02/28/2017 12:19 7 (specimen) PM EST 12:25 PM EST Resulting Agency Comment Spec In Lab Al Servin MD CHEMISTRY ORDERABLES Performing Organization Address City/[facility]/ZIP Code Phon e Number [place] [id number] Drive (ABNORMAL) BLOOD GAS 2 ARTERIAL (02/28/2017 11:04 AM EST) Analysis Performed At Patho logist Time Signature pH Art 7.34 (L) 7.35 - [facility] 7.45 [facility] pCO2 Art 45 35 - 45 [facility] LABORATORY pO2 Art 194 (H) 85 - 104 [facility] LABORATORY HCO3 Art 23.4 20.0 - [facility] 26.0 [facility] mmol/L [facility] BE Art -2.4 -3.0 - 3.0 [facility] mmol/L [facility] Hgb Blood Gas 14.1 13.7 - [facility] 16.5 gm/dL [facility] O2HB Art 98.2 (H) 94.0 - [facility] 97.0 % [facility] COHB Art 0.7 % [facility] Comment: Nonsmokers: 0.5-1.5% COHB Smokers: Variable, but usually less than 10% Toxic: 20-30% COHB Lethal: Greater than 60% COHB METHB Art 0.3 <=1.5 % [facility] Na Whole Blood 136 135 - 145 mmol/L [facility] K Whole Blood 4.1 3.5 - 5.0 mmol/L [facility] Comment: Please note: Patients with WBC >100,000 may have falsely elevated Potassium levels. Contact the Clinical Chemistry L aboratory if there are any questions. ICa Whole Blood 1.13 (L) 1.15 - 1.33 mmol/L [facility] Comment: Note: ??Total bilirubin higher than 20 m g/dL may lead to falsely low ionized calcium. CL Whole Blood 105 98 - 107 mmol/L [facility] Gluc Whole Bld 161 65 - 199 mg/dL [facility] Comment: Diabetes: >=200 mg/dL plus symp toms. Lactate WB 2.1 0.5 - 2.2 mmol/L [facility] Specimen Anatomical Collection Method Collection Time Receive d Time (Source) Location / / Volume Laterality Blood specimen 02/28/2017 11:04 7 (specimen) AM EST 11:04 AM EST Al Servin MD CHEMISTRY ORDERABLES Performing Organization Address City/State/[place] [address] Surgical Pathology Report (02/28/2017 9:57 AM EST) Component Value Ref Test Analysis Performed At [facility] gist Range Method Time Signature Surgical [id number] ? Location: [facility]; 0404; A [facility] Report The signing pathologist has (i) examined the relevant preparation(s) for the [facility] specimen(s) and (ii) rendered or confirmed the diagnosis(es) . HOSPITAL LABORATORY . ?Surgic al Pathology DIAGNOSIS Gastroesophageal fat pad, biopsy: Benign fibroadipose tissue with one reactive lymph node. Electronically signed by: ??Louisa Gee MD Verified: ??03/05/2017 ?Pathologist Performed at: ??-[facility], [place], [place] CLINICAL INFORMATION Specimen Submitted: A - Gastroesophageal fat pad Clinical History: Hiatal hernia with history of bleeding Clinical Diagnosis: Same SPECIMEN PROCESSING A - ??Labeled/Fixative: Gastroesophageal fat pad, fresh. Quantity/Size: Single, 2.3 x 2.9 x 0.8 cm. Tissue Description: Ovoid portion of tse-pink fi brofatty tissue with evidence of cautery artifact. One si de of the specimen is covered by pale pink, smooth, glistening serosa while the opposing side appears roughened. Sectioning reveals yellow lobular adipose tissue with no discrete lesions iden tified. Sections/Processing: The rou ghened surface is inked black. A sales service representative section is submitted. (R1) ??cf Specimen (Source) Anatomical Collection Method Collection Time Re ceived Time Location / / Volume Laterality 02/28/2017 9:57 AM EST Al Servin MD PATHOLOGY/CYTOLOGY ORDERABLE S Performing Organization Address City/State/[place] [address] Specimen to Pathology (surgical or derm) (02/28/2017 9:57 AM EST) Specimen Anatomical Collection Method Collection Time Receive d Time (Source) Location / / Volume Laterality AP Specimen 02/28/2017 9:57 AM 7 9:57 EST AM EST Narrative [facility] - 02/28/2017 9:57 AM EST Specimen requisition ordered. ??Separate Pathology report to follow Al Servin MD PATHOLOGY/CYTOLOGY ORDERABLE S Performing Organization Address City/State/[place] [address] (ABNORMAL) BLOOD GAS 2 ARTERIAL (02/28/2017 9:21 AM EST) Analysis Performed At Patho logist Time Signature pH Art 7.31 (L) 7.35 - [facility] 7.45 [facility] pCO2 Art 48 (H) 35 - 45 [facility] mmHg [facility] pO2 Art 182 (H) 85 - 104 [facility] LABORATORY HCO3 Art 23.4 20.0 - [facility] 26.0 [facility] mmol/L [facility] BE Art -2.9 -3.0 - 3.0 [facility] mmol/L [facility] Hgb Blood Gas 13.4 (L) 13.7 - [facility] 16.5 gm/dL [facility] O2HB Art 98.3 (H) 94.0 - [facility] 97.0 % [facility] COHB Art 0.4 % [facility] Comment: Nonsmokers: 0.5-1.5% COHB Smokers: Variable, but usually less than 10% Toxic: 20-30% COHB Lethal: Greater than 60% COHB METHB Art 0.3 <=1.5 % [facility] Na Whole Blood 139 135 - 145 mmol/L [facility] K Whole Blood 4.2 3.5 - 5.0 mmol/L [facility] Comment: Please note: Patients with WBC >100,000 may have falsely elevated Potassium levels. Contact the Clinical Chemistry L aboratory if there are any questions. ICa Whole Blood 1.15 (L) 1.15 - 1.33 mmol/L [facility] Comment: Note: ??Total bilirubin higher than 20 m g/dL may lead to falsely low ionized calcium. CL Whole Blood 105 98 - 107 mmol/L [facility] Gluc Whole Bld 155 65 - 199 mg/dL [facility] Comment: Diabetes: >=200 mg/dL plus symp toms. Lactate WB 2.3 (H) 0.5 - 2.2 mmol/L [facility] Specimen Anatomical Collection Method Collection Time Receive d Time (Source) Location / / Volume Laterality Blood specimen 02/28/2017 9:21 AM 017 9:21 (specimen) EST AM EST Al Servin MD CHEMISTRY ORDERABLES Performing Organization Address City/State/[place] [address] Prepare RBC (02/28/2017 9:05 AM EST) P athologist Signature Dispensed? Yes [facility] Specimen Anatomical Collection Method Collection Time Receive d Time (Source) Location / / Volume Laterality Blood specimen 02/28/2017 9:05 AM 017 9:02 (specimen) EST AM EST Resulting Agency Comment Spec In Lab Al Servin MD BLOOD BANK ORDERABLES Performing Organization Address City/State/ZIP Code Phon e Number [address] ABORH Recheck Status (02/28/2017 7:52 AM EST) [facility] gist Method Time Signature ABORH Recheck Order Placed [facility] K [facility] LABORATORY ABORH Type Complete [facility] LABORATORY Specimen Anatomical Collection Method Collection Time Receive d Time (Source) Location / / Volume Laterality Blood specimen 02/28/2017 7:52 AM 017 8:38 (specimen) EST AM EST Resulting Agency Comment Spec In Lab Al Servin MD BLOOD BANK ORDERABLES Performing Organization Address City/State/ZIP Code Phon e Number [address] Antibody screen (02/28/2017 7:52 AM EST) [facility] gist Method Time Signature Ab Screen Negative [facility] LABORATORY Expires at 03/03/2017 [place]A [place] 0861 on: [facility] Specimen Anatomical Collection Method Collection Time Receive d Time (Source) Location / / Volume Laterality Blood specimen 02/28/2017 7:52 AM 017 8:38 (specimen) EST AM EST Resulting Agency Comment Spec In Lab Al Servin MD BLOOD BANK ORDERABLES Performing Organization Address City/[facility]/[place] [address] ABO/Rh Typing (02/28/2017 7:52 AM EST) P athologist Signature ABORh Type B Pos [facility] Specimen Anatomical Collection Method Collection Time Receive d Time (Source) Location / / Volume Laterality Blood specimen 02/28/2017 7:52 AM 017 8:38 (specimen) EST AM EST Resulting Agency Comment Spec In Lab Al Servin MD BLOOD BANK ORDERABLES Performing Organization Address [facility] [place] [address] POCT Glucose (02/28/2017 6:28 AM EST) P athologist Signature POC Glucose 98 65 - 199 [facility] mg/dL [facility] Comment: Supplemental ranges: <140 mg/dL before meals <180 mg/dL all other times of the day Specimen Anatomical Collection Method Collection Time Receive d Time (Source) Location / / Volume Laterality Blood specimen 02/28/2017 6:28 AM 017 6:28 (specimen) EST AM EST Al Servin MD POINT OF CARE TEST ORDERABLE S Performing Organization Address City/[facility] [place] [address] documented in this encounter Visit Diagnoses Diagnosis Paraesophageal hiatal hernia Diaphragmatic hernia without mention of obstruction or gangrene Paraesophageal hernia Diaphragmatic hernia without mention of obstruction or gangrene Paraesophageal hiatal hernia Diaphragmatic hernia without mention of obstruction or gangrene documented in this encounter Admitting Diagnoses Diagnosis Paraesophageal hernia Diaphragmatic hernia without mention of obstruction or gangrene documented in this encounter Administered Medications Inactive Administered Medications - up to 3 most recent administrations Medication Order MAR Action Action Date Dose Rate Site acetaminophen (TYLENOL) 650 Given 03/01/2017 12:42 PM EST 1,000 mg mg/20.3 mL oral liquid 1,000 mg 1,000 mg, Oral, EVERY 6 HOURS, First dose on Sun02/28/17 at 1245, Until Discontinued, Maximum dose of acetaminophen is 4000 mg from all sources in 24 hours. , Routine Given 03/01/2017 6:44 AM EST 1,000 mg enoxaparin (LOVENOX) injection 40 mg Given 02/28/2017 8:33 PM EST 40 mg 40 mg, Subcutaneous, NIGHTLY, First dose on Sun02/28/17 at 2100, Until Discontinued, Routine HYDROmorphone (DILAUDID) 1 New Syringe/Cartridge 02/28/2017 3:[address] 50 mg mg/mL RN HEDIS 50 mL Intravenous, RN HEDIS ONLY, Starting on Sun02/28/17 at 1515, Until Sun03/01/17 at 0743 iohexol (OMNIPAQUE) 300 mg/mL solution 5 0 mL Given 03/01/2017 2:15 PM EST 50 mLs 50 mL, Oral, ONCE, 1 dose, On Sun03/01/17 at 1415, Warning Vesicant/Irritant Medication , Routine lactated Ringers infusion New Bag 03/01/2017 9:57 AM EST 100 mL/hr 100 mL/hr 100 mL/hr, Intravenous, CONTINUOUS, Starting on Sun02/28/17 at 1245, Until Sun03/01/17 at 2037, Recovery (Recovery-Hospital Unit) New Bag 02/28/2017 11:56 PM EST 100 mL/hr 100 mL/hr Continued Bag 02/28/2017 2:24 PM EST 100 mL/hr 100 mL/hr lidocaine (XYLOCAINE) 10 mg/mL (1 %) inj ection 3 mg 3 mg (0.3 mL), Subcutaneous, ONCE PRN, 1 dose, Startin g on Sun02/28/17 at 1428, Until Sun03/01/17 at 2037, for discomfort with PIV ins ertion, Recovery (Recovery-Hospital Unit), Routine oxyCODONE (ROXICODONE) 5 mg/5 mL solutio n 5 mg 5 mg, Oral, EVERY 4 HOURS PRN, Starting on Sun03/01/17 at 0744, Until Sun03/01/17 at 2037, Pain, Routine pantoprazole (PROTONIX) injection 40 mg Given 03/01/2017 8:33 AM EST 40 mg 40 mg, Intravenous, DAILY, First dose on Sun02/28/17 at 1700, Until Discontinued Given 02/28/2017 5:06 PM EST 40 mg senna (SENOKOT) tablet 17.2 mg Given 03/01/2017 5:03 PM EST 17.2 mg 17.2 mg, Oral, EVERY EVENING, First dose on Claudia 03/01/17 at 1700, Until Discontinued, Routine sodium chloride 0.9 % flush 5 mL Given 03/01/2017 8:33 AM EST 10 mLs 5 mL, Intravenous, 2 TIMES DAILY, First dose on Sun02/28/17 at 1445, Until Discontinued, Recovery (Recovery-Hospital Unit), Routine Given 02/28/2017 2:29 PM EST 5 mLs sodium chloride 0.9 % flush 5-20 mL 5-20 mL, Intravenous, EVERY 1 MIN PRN, S tarting on Sun02/28/17 at 1428, Until Sun03/01/17 at 2038, flush, Flush pertains t o all indwelling lines. Flush per protocol found in the job aid using the link prov ided on this medication record., Recovery (Recovery-Hospital Unit), Routine documented in this encounter Active and Recently Administered Medications Times are shown in EST. Scheduled Medication Order 02/27/2017 02/28/2017 03/01/2017 acetaminophen (TYLENOL) 650 mg/20.3 mL oral liquid 1,000 mg 1434 (Canceled Entry - Provider: Isis Marquez RN - Reason: Patient not available - Comment: pt in PACU - documented in error)1845 (Not Given - Provider: Isis Marquez RN - Reason: Patient/family refused) 0045 (Not Given - Provider: Rolando garner RN - Reason: Patient/family refused)0644 (Given - Provider: Rolando Chaparro RN)1242 (Given - Provider: Isis Marquez RN) 1,000 mg, Oral, EVERY 6 HOURS, First dos e on Sun02/28/17 at 1245, Until Discontinued, Maximum dose of acetaminophen is 4000 mg from all sources in 24 hours. , Routine ceFAZolin (ANCEF) 2g in dextrose 5% 100 mL (COMPLETED) 0748 (Given - Provider: Tracie Jaramillo CRNA)1048 (Given - Provider: Tracie Jaramillo CRNA) 2 g, Intravenous, EVERY 3 HOURS, 1 dose, First dose on Sun02/28/17 at 0630, Administer over 30 Minutes, Intra-Operative (Intra-Procedure), Indication for (Active or Suspected): Prophylaxis enoxaparin (LOVENOX) injection 40 mg 203 3 (Given - Provider: Rolando Chaparro RN) 40 mg, Subcutaneous, NIGHTLY, First dose on Sun02/28/17 at 2100, Until Discontinued, Routine heparin (Porcine) subcutaneous injection 5,000 Units (COMPLE THA) 0749 (Given - Provider: Marcos Andino MD) 5,000 Units, Subcutaneous, TYING IN MACHINE OPERATOR TO O. R., 1 dose, Sun02/28/17 at 0645, Routine iohexol (OMNIPAQUE) 300 mg/mL solution 50 mL (COMPLETED) 1415 (Given - Provider: Britany Orantes - Comment: omni [id number] sep 06 2019) 50 mL, Oral, ONCE, 1 dose, Claudia 03/01/17 a t 1415, Warning Vesicant/Irritant Medication , Routine pantoprazole (PROTONIX) injection 40 mg 1706 (Given - Provider: Isis Marquez RN) 0833 (Given - Provider: Isis Marquez RN) 40 mg, Intravenous, DAILY, First dose on Sun02/28/17 at 1700, Until Discontinued senna (SENOKOT) tablet 17.2 mg 1 703 (Given - Provider: Isis Marquez RN) 17.2 mg, Oral, EVERY EVENING, First dose on Claudia 03/01/17 at 1700, Until Discontinued, Routine sodium chloride 0.9 % flush 5 mL 1429 (G iven - Provider: Isis Marquez RN)2034 (Not Given - Provider: Rolando Chaparro RN - Reason: See comment - Comment: infusing, no sx of infiltration.) 0833 (Given - Provider: Isis Marquez RN) 5 mL, Intravenous, 2 TIMES DAILY, First dose on Sun02/28/17 at 1445, Until Discontinued, Recovery (Recovery-Hospital Unit), Routine Continuous Medication Order 02/27/2017 02/28/2017 03/01/2017 HYDROmorphone (DILAUDID) 1 mg/mL RN HEDIS 50 mL (CANCELED) 1535 (New Syringe/Cartridge - Provider: Isis Marquez, RN) 0900 (Stopped - Provider: Isis Marquez, RN) Intravenous, RN HEDIS ONLY, Starting Sun02/28/17 at 1515, Until T hu 03/01/17 at 0743 lactated Ringers infusion 1424 (Continue d Bag - Provider: Robina Lemus, RN)2356 (New Bag - Provider: Rolando Chaparro, ANA) 0957 (New Bag - Provider: Isis Marquez RN) 100 mL/hr, at 100 mL/hr, Intravenous, CO NTINUOUS, Starting Sun02/28/17 at 1245, Until Claudia 03/01/17 at 2038, Recovery (Recovery-Hospital Unit) PRN Medication Order 02/27/2017 02/28/2017 03/01/2017 BUpivacaine (PF) (MARCAINE) 0.5 % (5 mg/mL) injection (CANCE LED) 0836 (Given - Provider: Al Servin MD) ONCE PRN, Starting Sun02/28/17 at 0836, Until Claudia 03/01/17 at 2037, Intra- Operative (Intra-Procedure), Routine lidocaine (XYLOCAINE) 10 mg/mL (1 %) injection 3 mg 3 mg (0.3 mL), Subcutaneous, ONCE PRN, 1 dose, Starting Sun02/28/17 at 1428, Until Claudia 03/01/17 at 2037, for discomfort with PIV insertion, Recovery (Recovery-Hospital Unit), Routine lidocaine (XYLOCAINE) 10 mg/mL (1 %) injection (CANCELED) 0836 (Given - Provider: Al Servin MD) ONCE PRN, Starting Sun02/28/17 at 0836, Until Claudia 03/01/17 at 2037, Intra- Operative (Intra-Procedure), Routine oxyCODONE (ROXICODONE) 5 mg/5 mL solution 5 mg 5 mg, Oral, EVERY 4 HOURS PRN, Starting Claudia 03/01/17 at 0744, Until Claudia 03/01/17 at 2037, Pain, Routine sodium chloride 0.9 % flush 5-20 mL 5-20 mL, Intravenous, EVERY 1 MIN PRN, S tarting 02/28/17 at 1428, Until Claudia 03/01/17 at 2037, flush, Flush pertains to all indwelling lines. Flush per protocol found in the job aid using the link prov ided on this medication record., Recovery (Recovery-Hospital Uni t), Routine documented in this encounter Care Teams Pipelines Laborer Relationship Specialty Start Date End Date Clara Wood MD PCP - General Family Medicine 01/26/17 [address] [place] [address] documented as of this encounter
--- OUTSIDE RECORDS SUMMARY | 2021-12-30 01:33 | XMS_ITS | Encounter Summary ---
:1955 Author Organization [place] [address] Care Team Providers Name Role Phone Clara Wood MD Primary Care Provider Reason for Referral Diagnostic Test (Routine) - Closed Specialty Diagnoses / Procedures Referred By Contact Refer red To Contact Radiology Diagnoses Paraesophageal hernia Al Ortiz MD [facility] Rad Xray Procedures XR Fluoro Barium Swallow [facility] [address] [place] [address] [place] [address] [place] [address] Referral ID Status Reason Start Date Expiration Date Visits V isits Requested Authorized [id number] Closed Specialty 03/16/2017 03/16/2018 1 1 Service Requested Reason for Visit Reason Comments Follow-up Encounter Details Date Type Department Care Team Description 03/16/2017 Office Visit Thoracic Surgery at [facility] Para esophageal hernia VICENTE Upton MD [address] [place], [place] Thoracic Surgery [id number] [place] [address] Social History Tobacco Use Types Packs/Day Years [...] Sign Reading Time Taken Comments Blood Pressure 138/84 03/16/2017 8:13 AM EST Pulse 62 03/16/2017 8:13 AM EST Temperature 37 ??C (98.6 ??F) 03/16/2017 8:13 AM EST Respiratory Rate 16 03/16/2017 8:13 AM EST Oxygen Saturation 98% 03/16/2017 8:13 AM EST Inhaled Oxygen Concentration - - Weight 89.8 kg (198 lb) 03/16/2017 8:13 AM EST Height 175 cm (5' 8.9) 03/16/2017 8:13 AM EST Body Mass Index 29.33 03/16/2017 8:13 AM EST documented in this encounter Patient Instructions Patient InstructionsMarylou Sands RN - 03/16/2017 9:00 AM EST Thank you for visiting Dr. Ortiz in clinic 03/16/17 Dr. Ortiz would like to see you back in clinic in 6 months with a recent barium swallow study. Please do not lift >30 pounds until 04/12/17. After that do not life >50 pounds until 05/24/17. ?? Exercise each day for 30 minutes [...] encounter Progress Notes Al Ortiz MD - 03/16/2017 9:00 AM EST Thoracic Surgery Attending Outpatient Consultation Note Al Ortiz MD [place] [employer], [place] [address] FAX: Today I saw Mr. Amanuel Hussein in follow-up from his robotic paraesophageal hernia repair on 02/28/17. He was discharged after an uneventful postoperative course. He is breathing comfortably and denies fevers. He is eating solid foods without much difficulty. He notes that bread gets stuck a little but he is able to wash this down with liquid. He is off pain medication. He has no symptoms of refluxor regurgitation. Eckardt Scoring Weight loss (kg) Dysphagia Retrosternal pain Regurgitation 0 None None None None 1 < 5 Occassional Occassional Occassional 2 5-10 Daily Daily Daily 3 > 10 Each meal Each meal Each meal Total Score = 1 On physical examination today, his height is 175 cm (5' 8.9) and weight is 89.8 kg (198 lb). His temporal temperature is 37 ??C (98.6 ??F). His blood pressure is 138/84 and his pulse is 62. His respiration is 16 and oxygen saturation is 98%. Body mass index is 29.33 kg/(m^2). In general, he is in no acute distress. His pupils are reactive. His lungs are clear to auscultation bilaterally. His heart has a regular rate with no murmurs. His incisions are healing well with no erythema or drainage. His abdomen is soft and nontender. His extremities are warm with no edema. Neurologically, he is grossly intact. Today's chest x-ray shows postoperative changes with no acute infiltrates, masses nor effusion. In summary, Mr. 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 I spoke to him at length regarding the normal post-operative course. I explained that it is normal at this point to have some slight dysphagia to things like bread or thick meats. He is eating most things well and is taking small bites and chewing well. I explained he should continue to do this. I would like him to remain on his BID PPI for an additional 2 weeks. He can then go to daily PPI for at least 3 months post-operatively. If he is doing well at that time, I will leave it up to him and his PCP if he would like to try and get off this medication. He is cleared to go back to work with light duty and he was provided a letter to explain this. I also explained that he should avoid any significant straining or lifting any heavy objects for at least 3 months after surgery. He expressed his understanding. I would like him to return in 6 months for a follow up appointment and a repeat barium swallow. Thiswas scheduled today. He knows to call my office in the interim if there are issues or concerns. Al Ortiz MD 03/16/2017 Addendum to above: I spoke with Dr. Doyle from GI regarding Amanuel's follow up for possible Latif's at the GE junction. He would like to see him back in approximately 1 year for an EGD and repeat biopsies. Amanuel will see me in about 6 months, and my office will arrange GI follow up at that time. Al Ortiz MD 03/20/2017 documented in this encounter Plan of Treatment Upcoming Encounters Date Type Specialty Care Team Description 01/19/2022 Office Visit Radiation Oncology Clover Covarrubias APRN [facility] RADIATION ONCJENNIFER [address] [place], [place] [address] (Wo rk) 12/04/2022 Hospital Encounter Gastroenterology Real Jones MD [facility] GASTROENTEROLOGY DEPT. [place], [place] [address] (Wo rk) Scheduled Procedures Name Priority Associated Diagnoses Date/Time COLONOSCOPY, DIAGNOSTIC 10 yr f/up documented as of this encounter Results (ABNORMAL) XR Fluoro Barium [...] BARIUM SWALLOW CLINICAL HISTORY: s/p paraesophageal her nesas repair 02/2017 TECHNIQUE: Double contrast esophagram was [...] gangrene documented in this encounter Care Teams Baker Doughnut Relationship Specialty Start Date End Date Clara Wood MD PCP - General Family Medicine 01/26/17 [address] [place] [address] documented as of this encounter
--- OUTSIDE RECORDS SUMMARY | 2021-12-30 01:33 | XMS_ITS | Encounter Summary ---
:1955 Author Organization [facility] [place] [address] Care Team Providers Name Role Phone Marin Patton MD Primary Care Provider Reason for Visit Reason Comments Peptic Ulcer Disease Encounter Details Date Type Department Care Team Description 12/08/2016 Office Visit Thoracic Surgery at [facility] al hernia with [facility] MD Alexsandra GERD and esophagitis [facility] [address] [place] Thoracic Surgery [id number] [place] [address] [phone] Social History Tobacco Use Types Packs/Day Years [...] Sign Reading Time Taken Comments Blood Pressure 121/78 12/08/2016 2:05 PM EDT Pulse 68 12/08/2016 2:05 PM EDT Temperature 37.1 ??C (98.8 ??F) 12/08/2016 2:05 PM EDT Respiratory Rate 18 12/08/2016 2:05 PM EDT Oxygen Saturation 96% 12/08/2016 2:05 PM EDT Inhaled Oxygen Concentration - - Weight 95.3 kg (210 lb) 12/08/2016 2:05 PM EDT Height 175 cm (5' 8.9) 12/08/2016 2:05 PM EDT Body Mass Index 31.1 12/08/2016 2:05 PM EDT documented in this encounter Progress Notes Al Ortiz MD - 12/08/2016 2:00 PM EDT Thoracic Surgery Attending Outpatient Consultation Note Al Ortiz MD [facility] [address] [place], [place] [address] FAX: Referring Provider: Marin Patton MD [address] [place] [address] Reason for Consultation: Bleeding ulcer in setting of hiatal hernia Today, 12/08/2016, I saw Mr. Hussein in the Thoracic Surgery Clinic at [facility] in consultation for either a Type I or small to moderate Type 3 hiatal hernia at your request. As you know he is a very pleasant 61 yrs-old male who has had several episodes of melena over the last several years. He notes that he first noted melena in 2004 and was told he had an ulcer. This recurred in 2005 and he was placedon a PPI. He had a recurrent episode in 2012 that required transfusion and he was placed on a BID PPI. This was tapered to once daily approximately 1 year ago. He has a recent history of melena on 11/21/16 and was seen at the [facility] ED and discharged. He was seen again on 11/26 and again sent home. I don't have any records from these visits. He was again seen on 11/28 secondary to weakness and was transferred to [facility] for GI bleeding. Work up here included an EGD, see below. He denies any history of dysphagia. He has not lost weight and food does not stick in his lower chest. He denies regurgitation, heartburn or water brash. He is currently eating a regular diet. He notes a history of reflux formany years, but this seems to be asymptomatic. He has had no pneumonias. He denies fevers, night sweats, chest pain. He has had no prior treatments. On recent admission, hgb went from 14 to 11.8 and upto 13 without transfusion. A barium swallow on 12/08/2016 shows some esophageal dysmotility with what was read as a normal GE junction position. On my interpretation, there appears to be either a sliding hiatal hernia or a small type 3 paraesophageal hernia. No reflux appreciated. An esophagoscopy on 11/29/16 shows ??A 4 cm hiatal hernia was present. One esophageal ulcer with no bleeding and no stigmata of recent bleeding was found 38 cm from the incisors (superior to the diaphragmatic pinch). There was ?minimal associated esophagitis. The lesion was approximately 6-7 mm in largest dimension. The area was biopsied with a cold forceps for histology. Estimated blood loss was minimal. The entire examined stomach was normal. ?The examined duodenum was normal. Pathology showed: Ulcer in proximal stomach distal to GE junction: Squamocolumnar junctional mucosa(cardia type) with mild active and chronic inflammation, and pancreatic metaplasia. ??There is no evidence of intestinal ?? metaplasia and dysplasia. CLINICAL INFORMATION Specimen Submitted: A - Ulcer in proximal stomach distal to GE junction EGD and pathology reports from 08/2012 and 11/2012 here at [facility] also reviewed. 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 IMPRESSION During this recording period, while the patient was on 40 mg of Nexium twice daily, there was no evidence of pathologic acid reflux into the distal esophagus. CT C/A/P from OSH 11/26/16 reviewed-demonstrates hiatal hernia on my read. An esophageal manometry has not been performed. He is able to walk an unlimited amount per day and climb several flights of stairs without issue. His Zubrod score is 0 - Asymptomatic A 14-point review of systems is otherwise negative, except where noted above. He has a past medical history of GERD (gastroesophageal reflux disease). He has a past surgical history that includes Colonoscopy, Diagnostic (06392) (12/04/2012); Upper Gi Endoscopy, Biopsy (75452) (12/04/2012); and Upper Gi Endoscopy, Biopsy (04867) (N/A, 11/29/2016). He has a current medication list which includes the following prescription(s): pantoprazole. He has No Known Allergies. His family history is not on file. He denies any history of significant esophageal pathology or cancer. A review of his social history shows: Social History Substance Use Topics ??? Smoking status: Former Smoker Packs/day: 1.50 Years: 20.00 Quit date: 1981 ??? Smokeless tobacco: Never Used ??? Alcohol use Yes Comment: Rare On examination, Mr. Hussein is a well nourished, well-developed male. He is alert and oriented. Vital Signs: BP 121/78 (Patient Position: Sitting) Pulse 68 Temp 37.1 ??C (98.8 ??F) (Temporal) Resp 18 Ht 175 cm (5' 8.9) Wt 95.3 kg (210 lb) SpO2 96% BMI 31.1 kg/m2 Body mass index is 31.1 kg/(m^2). His pulse is regular, breathing is unlabored and temperature is afebrile. In general he is in no acute distress. His pupils are reactive. His sclera are anicteric. He has no palpable cervical or supraclavicular adenopathy. The lung villaseñor are coarse to auscultation bilaterally. Heart rate and rhythm are normal. The abdomen is soft and nontender. No organs or masses are palpable. There is no peripheral edema, cyanosis, or clubbing of the extremities. Pulses are full and equal bilaterally. Neurologic examination is grossly intact. Musculoskelatal exam is grossly intact with 5/5 strength. His skin is non-jaundiced. In summary, Mr. Hussein is a 61 year old male with a small to moderate hiatal hernia that is symptomatic with recurrent bleeding ulceration and melena, most recently earlier this month. He does have anemia, which is often associated with this problem. Today, we briefly discussed the potential surgical correction of this problem with a minimally invasive hiatal hernia repair and fundoplication. Given the esophageal dysmotility seen on his barium swallow, I will have him obtain esophageal manometry for further clarification, as this would potentially impact the type of fundoplication that is performed. We also discussed the option of continuing a BID PPI followed by re-scoping to assess healing ofhis ulcer. He has, however, had numerous bleeding incidents over the last decade and this is likely related to mechanical irritation of the stomach. He had a negative pH Sommer test in 2012 at the time of one of these episodes. It is somewhat difficult to ascertain the exact location of this most recent ulceration, as there is a discrepancy between the description in the EGD findings and the location of the biopsy, either above or below the GE junction. There is no evidence of malignancy. 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 We will get his manometry scheduled and he will continue the twice daily PPI. I would like to see him back in the office following the manometry results to discuss further treatment options. He is agreeable to this plan and would like to talk things over with his . In the meantime, if he should have any further questions or concerns, he should feel free to contactus. Al Ortiz MD 12/08/2016 documented in this encounter Plan of Treatment Upcoming Encounters Date Type Specialty Care Team Description 01/19/2022 Office Visit Radiation Oncology Clover Covarrubias APRN [facility] RADIATION ONCOLO [place], [place] [address] (Wo rk) 12/04/2022 Hospital Encounter Gastroenterology Real Jones MD [facility] GASTROENTEROLOGY DEPT. [place], [place] [address] (Wo rk) Scheduled Procedures Name Priority Associated Diagnoses Date/Time COLONOSCOPY, DIAGNOSTIC 10 yr f/up documented as of this encounter Visit Diagnoses Diagnosis Hiatal hernia with GERD and esophagitis documented in this encounter Care Teams Home And Family Living Professor Relationship Specialty Start Date End Date Marin Patton MD PCP - General 02/15/10 01/25/17 documented as of this encounter
--- OUTSIDE RECORDS SUMMARY | 2021-12-30 01:33 | XMS_ITS | Encounter Summary ---
:1955 Author Organization [place] [address] Care Team Providers Name Role Phone Marin Patton MD Primary Care Provider Reason for Visit Reason Comments Hiatal Hernia Encounter Details Date Type Department Care Team Description 01/05/2017 Office Visit Thoracic Surgery at Al Ortiz al hernia; [facility] MD Alexsandra Hiatal hernia with GERD and esophagitis [facility] [address] [place], [place] Thoracic Surgery [id number] [place] [address] [phone] Social History Tobacco Use Types Packs/Day Years [...] Sign Reading Time Taken Comments Blood Pressure 152/87 01/05/2017 9:12 AM EDT Pulse 68 01/05/2017 9:12 AM EDT Temperature 36.6 ??C (97.9 ??F) 01/05/2017 9:12 AM EDT Respiratory Rate 18 01/05/2017 9:12 AM EDT Oxygen Saturation 98% 01/05/2017 9:12 AM EDT Inhaled Oxygen Concentration - - Weight 92.5 kg (204 lb) 01/05/2017 9:12 AM EDT Height 175 cm (5' 8.9) 01/05/2017 9:12 AM EDT Body Mass Index 30.21 01/05/2017 9:12 AM EDT documented in this encounter Progress Notes Al Ortiz MD - 01/05/2017 9:15 AM EDT Thoracic Surgery Attending Outpatient Consultation Note Al Ortiz MD [place] [address] FAX: ?? Referring Provider: Marin Patton MD [address] [place] [address] [place] [address] ?? Reason for Consultation: Bleeding ulcer in setting of hiatal hernia ?? Today, 01/05/2017, I saw Mr. Hussein back in the Thoracic Surgery Clinic at [facility] in consultation for either a Type I or small to moderate Type 3 hiatal hernia. He was last seen on 12/08/2016 and subsequently has undergone high resolution manometry. He returns today to discuss these results and further management options. As you know he is a very pleasant 61 yrs-old male who has had several episodes of melena over the last several years. He notes that he first noted melena in 2004 and was told he had an ulcer. This recurred in 2005 and he was placed on a PPI. He had a recurrent episode in 2012 that required transfusionand he was placed on a BID PPI. This was tapered to once daily approximately 1 year ago. He has a recent history of melena on 11/21/16 and was seen at the [facility] ED and discharged. He was seen again on 11/26 and again sent home. I don't have any records from these visits. He was again seen on 11/28 secondary to weakness and was transferred to [facility] for GI bleeding. Work up here included an EGD, see lokesh cornell. He denies any history of dysphagia. He has not lost weight and food does not stick in his lower chest. He denies regurgitation, heartburn or water brash. He is currently eating a regular diet. Henotes a history of reflux for many years, but this seems to be asymptomatic. He has had no pneumonias. He denies fevers, night sweats, chest pain. He has had no prior treatments. On recent admission, hgb went from 14 to 11.8 and up to 13 without transfusion. Esophageal Manometry 12/19/16: FINDINGS LES (lower esophageal sphincter) Distal border of LES identified at 48.4 cm. Proximal border of LES identified at 45.6 cm. ?? Hiatal hernia present? Yes, sliding, 3 cm Basal pressure respiratory mean pressure 8.1 mmHg (normal = 15-34 mmHg). Residual mean pressure (integrated relaxation pressure - IRP) 6.0 mmHg (normal = <15 mmHg). ?? BODY OF ESOPHAGUS Water Swallows: 10. Failed: 80%. Transmitted (peristaltic): 20%. Panesophageal pressurization: 10% Premature: 0% Rapid: 0% With large breaks: 0%. With small breaks: 0%. DCI (distal contractile integral): 850 mmHg-cm-s (normal is 450 to 5000 mmHg-cm-s). Contractile front velocity: 4 cm/s (normal is <9.0 cm/s). Intrabolus pressure (average maximum): 14.8 mmHg (normal is <17.0 mmHg). Distal latency: 6.3 ? UES (upper esophageal sphincter) Distal border of UES identified at 21.9 cm and extended to 19.7 cm. UES basal pressure 36 mmHg (normal = 34-104 mmHg). Residual pressure 4.9 mmHg (normal = <12 mmHg). ?? IMPRESSION 1. Hypotensive LES resting pressure. This predisposes some patients to GERD. 2. Normal LES relaxation (IRP, integrated relaxation pressure). 3. Normal UES resting pressure. 4. Normal UES relaxation. 5. Abnormal motility in the body of the esophagus best characterized as frequent failed peristalsis as only 2 of 10 swallows were transmitted. 6. Evidence of a sliding hiatal hernia on this study. 7. Normal DCI (distal contractile integral). This is a measure of contractile vigor. This is a measure only of the 2 transmitted swallows. 8. Normal intrabolus pressure. This is a measure of esophageal clearance. 9. The findings of low LES pressure and significantly abnormal motility in the body of the esophaguswith only 2 of 10 swallows being transmitted likely explains symptoms of reflux. In the occasional patient, these findings may indicate the presence of a connective tissue disorder. Clinical correlation is required. ?? A barium swallow on 12/08/2016 shows some esophageal dysmotility with what was read as a normal GE junction position. On my interpretation, there appears to be either a sliding hiatal hernia or a small type 3 paraesophageal hernia. No reflux appreciated. ?? An esophagoscopy on 11/29/16 shows ??A 4 cm hiatal hernia was present. One esophageal ulcer with no bleeding and no stigmata of recent bleeding was found 38 cm from the incisors (superior to the diaphragmatic pinch). There was minimal associated esophagitis. The lesion was approximately 6-7 mm in largest dimension. The area was biopsied with a cold forceps for histology. Estimated blood loss was minimal. The entire examined stomach was normal. The examined duodenum was normal. Pathology showed: Ulcer in proximal stomach distal to GE junction: Squamocolumnar junctional mucosa(cardia type) with mild active and chronic inflammation, and pancreatic metaplasia. ??There is no evidence of intestinal metaplasia and dysplasia. ?? EGD and pathology reports from 08/2012 and 11/2012 here at [facility] also reviewed. Normal colonoscopy 11/2012 ?? Sommer pH from 11/2012 at [facility]: Calculated DeMeester Score (normal values are up to 14.72) Day One Calculated DeMeester Score: 3.2 Day Two Calculated DeMeester Score: 2.1 Qdbpv-[id number]-Qrlk DeMeester Score (Total): 2.7 During this recording period, the patient did not report any symptoms on his clinical liaison. IMPRESSION During this recording period, while the patient was on 40 mg of Nexium twice daily, there was no evidence of pathologic acid reflux into the distal esophagus. ?? CT C/A/P from OSH 11/26/16 reviewed-demonstrates hiatal hernia on my read. An esophageal manometry has not been performed. ?? He is able to walk an unlimited amount per day and climb several flights of stairs without issue. His Zubrod score is 0 - Asymptomatic ?? A 14-point review of systems is otherwise negative, except where noted above. ? He has a past medical history of GERD (gastroesophageal reflux disease). ?? He has a past surgical history that includes Colonoscopy, Diagnostic (81529) (12/04/2012); Upper Gi Endoscopy, Biopsy (59345) (12/04/2012); and Upper Gi Endoscopy, Biopsy (86178) (N/A, 11/29/2016). ?? He has a current medication list which includes the following prescription(s): pantoprazole. ?? He has No Known Allergies. ?? His family history denies any significant esophageal pathology or cancer. ?? A review of his social history shows: Social History Substance Use Topics ??? Smoking status: Former Smoker ? Packs/day: 1.50 ? Years: 20.00 ? Quit date: 1981 ??? Smokeless tobacco: Never Used ??? Alcohol use Yes ? Comment: Rare ? On examination, Mr. Hussein is a well nourished, well-developed male. He is alert and oriented. BP152/87 (Patient Position: Sitting) Pulse 68 Temp 36.6 ??C (97.9 ??F) (Temporal) Resp 18 Ht 175 cm (5' 8.9) Wt 92.5 kg (204 lb) SpO2 98% BMI 30.21 kg/m2 His pulse is regular, breathing isunlabored and temperature is afebrile. In general he is in no acute distress. His pupils are reactive. His sclera are anicteric. He has no palpable cervical or supraclavicular adenopathy. The lung villaseñor are coarse to auscultation bilaterally. Heart rate and rhythm are normal. The abdomen is soft and n ontender. No organs or masses are palpable. There is no peripheral edema, cyanosis, or clubbing of the extremities. Pulses are full and equal bilaterally. Neurologic examination is grossly intact. Musculoskelatal exam is grossly intact with 5/5 strength. His skin is non-jaundiced. ?? In summary, Mr. Hussein is a 61 year old male with a small to moderate hiatal hernia that is symptomatic with recurrent bleeding ulceration and melena, most recently last month. He does have anemia, which is often associated with this problem. Today, we reviewed the results of his manometry confirming a hiatal hernia and also demonstrating 80% failed swallows. It is difficulty to know if this is related to his hiatal hernia or an intrinsic abnormality in the esophagus, or a combination of both. Wediscussed the surgical correction of this problem with a minimally invasive hiatal hernia repair andgiven the results of manometry a partial fundoplication. He has had numerous bleeding incidents over the last decade and this is likely related to mechanical irritation of the stomach. He had a negative pH Sommer test in 2012 at the time of one of these episodes. I discussed his most recent EGD with Dr. 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 He is agreeable to surgery. He is having carpal tunnel release at the end of this month, and would prefer to have that surgery first. We discussed the possibility of a recurrent bleed in the interim, but given that he is on BID PPI therapy, the risk is probably low. I think it would be ok to have the carpal tunnel surgery and have him return to see me in clinic shortly thereafter to ensure there were no major issues. He is in agreement with that plan, and would prefer to wait until after his upcoming surgery to schedule the hiatal hernia repair. A follow up appointment with me has been schedule for January 26 to have a final pre-operative visit and we will get a repeat EKG and labs that day. ?? In the meantime, if he should have any further questions or concerns, he should feel free to contactus. ?? Al Ortiz MD 01/05/2017 documented in this encounter Plan of Treatment Upcoming Encounters Date Type Specialty Care Team Description 01/19/2022 Office Visit Radiation Oncology Clover Covarrubias APRN [facility] RADIATION ONCJENNIFER [place] [place], [place] [address] (Wo rk) 12/04/2022 Hospital Encounter Gastroenterology Real Jones MD [facility] GASTROENTEROLOGY DEPT. [place], [place] [address] (Wo rk) Scheduled Procedures Name Priority Associated Diagnoses Date/Time COLONOSCOPY, DIAGNOSTIC 10 yr f/up documented as of this encounter Visit Diagnoses Diagnosis Hiatal hernia Diaphragmatic hernia without mention of obstruction or gangrene Hiatal hernia with GERD and esophagitis documented in this encounter Care Teams Customer Services Coordinator Relationship Specialty Start Date End Date Marin Patton MD PCP - General 02/15/10 01/25/17 documented as of this encounter
--- OUTSIDE RECORDS SUMMARY | 2021-12-30 01:33 | XMS_ITS | Encounter Summary ---
:1955 Author Organization [facility] [place] [address] Care Team Providers Name Role Phone Marin Patton MD Primary Care Provider Encounter Details Date Type Department Care Team Description 11/29/2016 Orders Only [facility] Marin Patton MD [facility] [address] [place] [id number] [phone] (Wo rk) Social History Tobacco Use Types Packs/Day Years Used Date Former Smoker 1.5 20 Comments: Quit in 1984 Alcohol Use Standard Drinks/Week Comments Yes 0 [...] Covarrubias APRN [facility] RADIATION ONCJENNIFER [place], [place] [address] (Wo rk) 12/04/2022 Hospital Encounter Gastroenterology Real Jones MD [facility] GASTROENTEROLOGY DEPT. [place], [place] [address] (Wo rk) Scheduled Procedures Name Priority Associated Diagnoses Date/Time COLONOSCOPY, DIAGNOSTIC 10 yr f/up documented as of this encounter Procedures Procedure Name Priority Date/Time Associated Diagnosis Comme nts UPPER GI ENDOSCOPY Routine 11/29/2016 11:22 AM Re sults for this EDT procedure are i n the results section. documented in this encounter Results UPPER GI ENDOSCOPY (11/29/2016 11:22 AM EDT) Component Value Ref Test Analysis Performed At [facility] Method Time Signature UPPER GI [facility] ENDOS[facility] Endoscopy Procedure Date: 11/29/2016 11:22 AM ? Patient Name: Amanuel Hussein ? Date of : 1955 ? Age: 61 ? Order #: [id number] ? Instrument Name: [id number] ? Procedure: ? Upper GI endoscopy Indications: ? Melena Patient Profile: ? This is a 61 year old male. Refer to ? note in patient chart for ? documentation of history and physical. Providers: ? Kaiser Doyle MD, Fiordaliza dumont, ? RN, Amanuel Garduno, Keith Daugherty MD Referring MD: ?Marin Patton MD Requesting Provider: Zaheer Meyer Medicines: ? Midazolam 4 mg IV, Fentanyl 200 ? micrograms IV Complications: ? No immediate complications. Procedure: ? Pre-Anesthesia Assessment: ? - Prior to the procedure, a H istory ? and Physical was performed, a nd ? patient medications, allergie s and ? sensitivities were reviewed. The ? patient's tolerance of previo us ? anesthesia was reviewed. ? - The risks and benefits of t he ? procedure and the sedation op tions ? and risks were discussed with the ? patient. All questions were a nswered ? and informed consent was obta ined. ? - Patient identification and proposed ? procedure were verified prior to the ? procedure by the physician whitney spencer the ? nurse. The procedure was veri fied in ? the pre-procedure area in the ? endoscopy suite. ? - ASA Grade Assessment: II - A ? patient with mild systemic di sease. ? The procedure, indications, b enefits, ? risks and alternatives were e xplained ? to the patient. Specifically ? discussed were potential ? complications including, but not ? limited to, bleeding, perfora tion, ? infection, missing a cancer, and ? adverse medication reactions. The ? Endoscope was introduced thro [facility] the ? mouth, and advanced to the ird part ? of duodenum. The patient tole rated ? the procedure well. The upper GI ? endoscopy was accomplished wi [facility]. ? The patient tolerated the pro cedure ? well. ? Findings: ? The mucosa in the esophagus was normal. A 4 cm hiatal ? hernia was present with minimal esophagitis. ? One gastric ulcer with no bleeding and no stigmata of ? recent bleeding was found 38 cm from the incisors, ? superior to the diaphragmatic pinch but distal from ? the GE junction within the cardia. The lesion was ? approximately 6-7 mm in largest dimension. The area ? was biopsied with a cold forceps for histology. ? Estimated blood loss was minimal. ? The entire examined stomach was otherwise normal. ? The examined duodenum was normal. ? Moderate Sedation: ? I was present during the intraservice time as ? documented by the sedation RN. Impression: ?- Hiatal hernia with minimal ? esophagitis. ? - Non-bleeding clean based ga stric ? ulcer in the cardia. Suspect ? secondary to mechanical irrit ation ? from hiatal hernia. This was likely ? the source of the patients me bridgette. ? Biopsied. ? - Otherwise normal stomach an d normal ? examined duodenum without any source ? of bleeding. Recommendation: ?- If no evidence of ongoing bleeding ? patient can be discharged fro m the ? hospital ? - Increase to a twice daily P roton ? pump inhibitor ? - Barium swallow to further d efine ? hiatal hernia ? - Referral to surgery for ? consideration of hiatal herni a repair ? - Follow up pathology ? Procedure Code(s): ?? --- Professional --- ? 99307, Esophagogastroduodenos copy, ? flexible, transoral; with bio psy, ? single or multiple CPT copyright 2016 [employer]. All rights reserved. The codes documented in this report are preliminary and upon rapid extractor operator review may be revised to meet current compliance requirements. Attending Participation: ? I was present and participated during the entire ? procedure, including non-johnson portions. ? I was present during the intraservice time as ? documented by the sedation RN. ? Dr. Austin Doyle Kaiser Doyle MD 11/29/2016 12:36:49 PM Number of Addenda: 0 Note Initiated On: 11/29/2016 11:22 AM Specimen (Source) Anatomical Collection Method Collection Time Re ceived Time Location / / Volume Laterality 11/29/2016 11:22 AM EDT Marin Patton MD GENERAL SURGICAL ORDERABLES Performing Organization Address City/State/ZIP Code Phon e Number [facility] documented in this encounter Visit Diagnoses Not on filedocumented in this encounter Care Teams Surface Grinder Relationship Specialty Start Date End Date Marin Patton MD PCP - General 02/15/10 01/25/17 documented as of this encounter
--- OUTSIDE RECORDS SUMMARY | 2021-12-30 01:33 | XMS_ITS | Encounter Summary ---
:1955 Author Organization [facility] [address] Care Team Providers Name Role Phone Marin Patton MD Primary Care Provider Reason for Referral Consultation (Hospitalist (2 weeks)) - Specialty Diagnoses / Procedures Referred By Contact Refer red To Contact Thoracic Surgery Diagnoses Gastrointestinal hemorrhage, unspecified gastrointestinal hemorrhage type El Dinh MD [facility] [place] Thoracic Surg [facility] [address] [place] [address] [place] [address] Phone: Fax: Referral ID Status Reason Start Date Expiration Date Visits V isits Requested Authorized [id number] Consult, 11/29/2016 11/29/2017 1 1 Test & Treat Reason for Visit Auth/Cert Specialty Diagnoses / Procedures Referred By Contact Refer red To Contact Diagnoses GI bleed GI BLEED Melena IV SED per Medina Procedures EGD, UPPER GI ENDOSCOPY Referral ID Status Reason Start Date Expiration Date Visits Requ ested Visits Authorized [id number] 1 1 Encounter Details Date Type Department Care Team Description 11/28/2016 - [place] [id number] [place] [address] Gastrointestinal 11/30/2016 Encounter [facility] [place] [address] hemorrhage, unspecified Hospital gastrointestinal [facility] [place] [id number] Social History Tobacco Use Types Packs/Day Years [...] Sign Reading Time Taken Comments Blood Pressure 136/91 11/30/2016 7:40 AM EDT Pulse 63 11/29/2016 12:25 PM EDT Temperature 37.2 ??C (99 ??F) 11/30/2016 7:40 AM EDT Respiratory Rate 16 11/30/2016 7:40 AM EDT Oxygen Saturation 98% 11/30/2016 7:40 AM EDT Inhaled Oxygen Concentration - - Weight - - Height - - Body Mass Index - - documented in this encounter Discharge Summaries El Dinh MD - 11/30/2016 11:33 AM EDT Discharge Summary Patient Name: Amanuel Hussein Patient Age: 61 y.o. Language: Mongolian Race: Ethnicity: Not nor Admit date: 11/28/2016 Discharge date and time: 11/30/16 Afternoon Attending Physician: El Dinh MD Discharge Physician: Dr. El Dinh Follow-up Recommendations for Providers: ?? Borderline hypertensive during admission, recommend following as outpatient ?? FYI appointments for barium swallow and then thoracic surgery for evaluation of hiatal hernia on 12/08/[address] Ortiz at [facility] Inpatient Provider Contact Information: For questions regarding this document or issues relating to this hospitalization on the Medical Service, please contact your inpatient physician through the [facility] Life Cycle Assessment Analyst . Issues after hours and on weekends will be handled by the Hospitalist staff on-call. Discharge Diagnoses (Hospital Problems) and Secondary Diagnoses (Chronic Problems): Active Hospital Problems Diagnosis ??? Hiatal hernia ??? Esophageal ulcer Resolved Hospital Problems Diagnosis Date Resolved ??? GI bleed 11/30/2016 ??? Melena 11/30/2016 Active Non-Hospital Problems Diagnosis ??? Hematemesis Operations/Major Procedures: Operations: Procedure(s): UPPER GASTROINTESTINAL ENDOSCOPY,WITH BIOPSY SINGLE OR MULTIPLE (WRVU 2.49) 11/29/2016 History of Presentation: 61 year old man with h/o GI bleed 2/2 esophageal ulcers who presents with melena. He was seen at [facility] on 11/26 after an episode of melena. He had 1 at home then 2 in the hospital. Hemoglobin was 14. CT abdomen and pelvis concerning for and esophageal motility issue and enteritis. He was referred to Gen Surg as an outpatient for possible EGD. He reports approximately 5 more episodes of melena after being discharged from the ED. He called the Gen Surg who told them that his appointment would not be until CLAUDIA. In the interim, he also developed generalized weakness, and SOB with exertion. He denies CP, cough or fever. He denies abdominal pain, nausea, or vomiting. He returned to [facility] today and repeat Hgb was 12. He was subsequently transferred to [facility] for possible EGD. Hospital Course: #GI bleed - Presented with persistent melena and decreasing hemoglobin, no nausea, vomiting, or abdominal pain. EGD showed non-bleeding esophageal ulcer with mechanical irritation secondary to hiatal hernia as likely source of GI bleed. Appt made with thoracic surgery to evaluate for possible repair. No bowel movements during admission, and hemoglobin improved to 13.0 on discharge. He was tolerating a regular diet. Patient was instructed to increase his daily PPI to twice daily. Vital Signs at Discharge: BP: (!) 136/91, Heart Rate: 63, Temp: 37.2 ??C (99 ??F), Resp: 16, Functional and Cognitive Status: Patient baseline Important Studies and Lab Data: Labs: Last 3 wbc, hgb, hct plt Recent Labs 11/30/16 0619 11/29/16 0450 11/28/16 2031 WBC 6.3 5.8 7.2 HGB 13.0* 11.8* 12.4* HCT 34.9* 33.3* 34.3* PLATELET 267 230 227 Studies: EGD 11/29/16 Impression: ?- Non-bleeding esophageal ulcer. ?Suspect secondary to mechanical ?irritation from hiatal hernia. This ?was likely the source of the patients ?melena. Biopsied. ?- Normal stomach. ?- Normal examined duodenum. Recommendation: ?- If no evidence of ongoing bleeding ?patient can be discharged from the ?hospital ?- Increase to a twice daily Proton ?pump inhibitor ?- Barium swallow to further define ?hiatal hernia ?- Referral to surgery for ?consideration of hiatal hernia repair ?- Follow up pathology Pending Studies and Lab Data: Pathology from upper endoscopy 11/29/16 Discharge Conditions/Prognosis: No further evidence of current GI bleed, hemoglobin stable. Possibility of recurrence due to continued esophageal irritation from hiatal hernia. Discharge to: Home Updated Allergies/ADRs: No Known Allergies Immunizations Given this Hospitalization: There is no immunization history on file for this patient. Discharge Medications: Your Medications Continued medications with new dosing Dose Details pantoprazole 40 mg Tbec Commonly known as: PROTONIX Take 1 tablet by mouth 2 times daily (before meals). What changed: when to take this 40 mg Quantity: 60 tablet Refills: 3 Smoking Status at Discharge: History Smoking Status ??? Former Smoker ??? Packs/day: 1.50 ??? Years: 20.00 Smokeless Tobacco ??? Not on file Comment: Quit in 1984 Instructions Given to Patient at Discharge: Patient Instructions Instruction after leaving the hospital Why you were hospitalized: GI bleed, likely from your esophageal ulcer. Call your doctor or seek medical attention if you develop the following: Black tarry stools, blood in your stools, vomiting blood or coffee grounds, dizziness, shortness of breath, chest pain. Activity level: No restrictions Diet: Avoid foods that trigger heartburn Driving: No restrictions Specific instructions related to your condition: Esophageal ulcer: Your black stools were most likely due to bleeding from your esophageal ulcer. Youhad an upper endoscopy done, and the ulcer was no longer bleeding. It is likely that the bleeding was from irritation from your hiatal hernia (outpouching of stomach through the diaphragm). Samples of the ulcer were taken, and the hospital will call you with results of the biopsies. ?? Increase your protonix from 40 mg once daily to 40 mg twice daily ?? Follow up with thoracic surgery at [facility] for possible repair of hiatal hernia. You will have an appointment for an imaging test of your esophagus (barium swallow) before this appointment. You should not eat or drink anything, including water or coffee, after midnight before your appointment. ?? Your stools may still look black for the next couple of bowel movements, however this should improve over the next few days. Follow-Up Appointments Date and Time Provider and Specialty Location Sunday12/08/16 at 11 AM Fluoroscopy (Barium swallow) 3T, [facility] Sunday12/08/[address] Ortiz, Thoracic Surgery 3K, [facility] 12/13/16 at 8:[address] Britt, PCP [place] Your Inpatient Doctor(s) at [facility]: Dr. El Forde, sub-physician internist General Instructions None Future Appointments and Orders Future Appointments Provider Department Dept Phone 12/08/2016 11:00 AM [facility] DX ROOM 8 XRay at [place] [phone] Please do not eat after midnight. 12/08/2016 2:00 PM Al Ortiz MD Thoracic Surgery at [place] [phone] Future Orders Complete By Expires XR Fluoro Barium Swallow [53682 Custom] 12/08/2016 06/09/2017 Process Instructions: Scheduling Instructions: Questions: Where will study be performed?: [facility] Reason for exam and clinical history: 61 M with hiatal hernia seen on EGD and bleeding ulcers from it- pls evaluate Other pertinent information: Area to be examined: Stat read required?: Date of injury if applicable: Requested Time: Referral to Thoracic Surgery [[id number] Custom] As directed Process Instructions: If no progress note charted, please enter Clinical details in comments. Scheduling Instructions: Questions: My question or request is: 61 M with hiatal hernia and GIB 2/2 ulcer felt to be irritation from hiatal hernia- ?surgical repair Discharge References/Attachments HIATAL HERNIA ([place]) GI TRACT: UPPER: ANATOMY SKETCH ([place]) documented in this encounter Discharge Instructions Patient InstructionsEl Dinh MD - 11/29/2016 1:34 PM EDT Instruction after leaving the hospital Why you were hospitalized: GI bleed, likely from your esophageal ulcer. Call your doctor or seek medical attention if you develop the following: Black tarry stools, blood in your stools, vomiting blood or coffee grounds, dizziness, shortness of breath, chest pain. Activity level: No restrictions Diet: Avoid foods that trigger heartburn Driving: No restrictions Specific instructions related to your condition: Esophageal ulcer: Your black stools were most likely due to bleeding from your esophageal ulcer. Youhad an upper endoscopy done, and the ulcer was no longer bleeding. It is likely that the bleeding was from irritation from your hiatal hernia (outpouching of stomach through the diaphragm). Samples of the ulcer were taken, and the hospital will call you with results of the biopsies. ?? Increase your protonix from 40 mg once daily to 40 mg twice daily ?? Follow up with thoracic surgery at [facility] for possible repair of hiatal hernia. You will have an appointment for an imaging test of your esophagus (barium swallow) before this appointment. You should not eat or drink anything, including water or coffee, after midnight before your appointment. ?? Your stools may still look black for the next couple of bowel movements, however this should improve over the next few days. Follow-Up Appointments Date and Time Provider and Specialty Location Sunday12/08/16 at 11 AM Fluoroscopy (Barium swallow) , [facility] Sunday12/08/[address] Ortiz, Thoracic Surgery 3K, [facility] Sun12/13/16 at 8:[address] Britt, PCP [place] Your Inpatient Doctor(s) at [facility]: Dr. El Forde, sub-physician internist AttachmentsThe following attachments cannot be sent through Care Everywhere. HIATAL HERNIA ([place])GI TRACT: UPPER: ANATOMY SKETCH ([place])documented in this encounter Progress Notes El Dinh MD - 11/30/2016 11:07 AM EDT Hospital Medicine - Attending Day of Discharge Documentation Discharge diagnosis Active Hospital Problems Diagnosis ??? GI bleed ??? Melena Resolved Hospital Problems Diagnosis Date Resolved No resolved problems to display. Secondary Issues Active Non-Hospital Problems Diagnosis ??? Esophageal ulcer ??? Hematemesis I have personally seen and examined the patient and they are ready for discharge. Hb stable at 13.0 I spent <30 minutes involved in the final examination of the patient, discussion of the hospital stay, instructions for continuing care to all relevant caregivers, and preparation of discharge records, prescriptions and referral forms. Plans ? Discharge to home ? Follow-up scheduled with PCP, Thoracic Surgery ? Please see the Discharge Summary for complete details of any medication changes and additional plans. Kaiser Doyle MD - 11/30/2016 8:33 AM EDT Gastroenterology & Hepatology Progress Note Amanuel Hussein 1955 [id number] Date of Admission: 11/28/2016 ( Hospital Day 0 days ) Attg: Zaheer Meyer, DO ID: 61-year-old man with prior GI bleeds due to esophageal ulcers, most recently in 2012, who presented to OSH with several days of melena and Hgb 14 -> 12. He's remained stable since admission, with nofurther episodes of melena and stable Hgb. EGD on 11/29 showed non-bleeding esophageal ulcer. Interval History: - EGD on 11/29 showed non-bleeding esophageal ulcer. - remains HD stable without any further evidence of bleeding Medications Scheduled Meds: ??? sodium chloride 0.9 % 5 mL Intravenous BID ??? pantoprazole 40 mg Intravenous BID Continuous Infusions: PRN Meds:.fentaNYL (PF), midazolam (PF), sodium chloride 0.9 %, lidocaine, acetaminophen, ondansetron OR ondansetron Physical Examination Vitals: Last value Range last 24 hrs Temperature Temp: 37.2 ??C (99 ??F) Temp: [36.8 ??C (98.2 ??F)-37.3 ??C (99.1 ??F)] Heart Rate Heart Rate: 63 Heart Rate: [60-67] Blood Pressure BP: (!) 136/91 BP: (97-165)/(53-97) Respiratory Rate Resp: 16 Resp: [8-18] SpO2 SpO2: 98 % SpO2: [95 %-100 %] Intake/Output Summary (Last 24 hours) at 11/30/16 0834 Last data filed at 11/30/16 0700 Gross per 24 hour Intake 1440 ml Output 1900 ml Net -460 ml Wt Readings from Last 3 Encounters: 10/16/12 94.8 kg (209 lb) There is no height or weight on file to calculate BMI. Gen: lying comfortably in bed, NAD Neuro: AAOx3, grossly normal Heent: NC/AT, anicteric sclera CVS: RRR no murmurs Lungs: CTAB anteriorly Abd: soft, NT, ND, NABS Skin: no rash appreciated on forearms / LE Ext: no edema Labs: Reviewed in EMR. Recent pertinent labs include: Recent Labs 11/30/1661811/29/1644911/28/162030 WBC 6.3 5.8 7.2 HGB 13.0* 11.8* 12.4* HCT 34.9* 33.3* 34.3* PLATELET 267 230 227 NEUTROABS 3.83 3.62 4.33 Recent Labs 11/30/1661811/29/1644911/28/162030 NA 139 139 142 K 3.8 3.9 3.9 CL 103 104 104 CO2 23 24 25 BUN 9* 12 13 CREATININE 0.87 0.96 0.88 Recent Labs 11/30/1661811/29/160 11/28/162030 CALCIUM 8.6 8.3* 8.6 Recent Labs 11/28/162030 AST 53* ALT 59* ALKPHOS 50 BILITOT 0.9 BILIDIR 0.2 Recent Labs 11/28/162030 INR 1.0 PT 13.7 Microbiology: Reviewed in eDH Pertinent Endoscopic Procedures/Reports: Reviewed in eDH EGD 11/29/16: Impression: ??- Non-bleeding esophageal ulcer. ?Suspect secondary to mechanical ?irritation from hiatal hernia. This ?was likely the source of the patients ?melena. Biopsied. ?- Normal stomach. ?- Normal examined duodenum. Pertinent Recent Imaging Reviewed in eDH Assessment: 61-year-old man with prior GI bleeds due to esophageal ulcers, most recently in 2012, admitted with melena. EGD on 11/29 showed non-bleeding esophageal ulcer, most likely secondary to mechanical irritation due to hiatal hernia. He's remained stable since admission with no further evidence of bleeding. We recommend referral to general surgery for possible hiatal hernia repair, and he will likely need further characterization of his hernia via barium swallow study and manometry study prior to any surgical intervention. Recommendations - follow-up pathology from EGD biopsies - outpatient manometry - outpatient barium swallow - pending these studies, outpatient surgery consult for hiatal hernia repair - continue BID PO PPI -d/w attg, Dr. Doyle -please call w/ questions Julissa Medina MD, GI Fellow [phone] 11/30/2016 Attending Addendum: I have seen and examined the patient with Dr. Medina. We reviewed the medical record and pertinent studies and imaging. My evaluation and physical examination confirms the above findings. The assessment and plan were formulated in discussion with me at the time of the encounter and I agree with them as documented. Kaiser Doyle MD [facility] Gastroenterology Stephani Resendiz RN - 11/29/2016 1:39 PM EDT 11/29/16 1338 Safety Safety WDL WDL Visual Checks Awake Safety Interventions Safety Promotion/Fall Prevention safety round/check completed All Alarms alarm(s) activated and audible Type of Monitor Masimo Positioning Repositioned Supine;Turns self Amanuel returned from Endoscopy a/o with no complaints. He is groggy from procedure, answers questions appropriately. Will let rest and monitor El Dinh MD - 11/29/2016 11:34 AM EDT Hospital Medicine Attending Daily Progress Note Admit Date: 11/28/2016 Hospital Day 1 day Active Hospital Problems Diagnosis ??? GI bleed ??? Melena Resolved Hospital Problems Diagnosis Date Resolved No resolved problems to display. PMH Active Non-Hospital Problems Diagnosis ??? Esophageal ulcer ??? Hematemesis Inpatient Medications: Scheduled ??? [MAR Hold] sodium chloride 0.9 % 5 mL Intravenous BID ??? [MAR Hold] pantoprazole 40 mg Intravenous BID Continuous infusions: ??? lactated Ringers ??? [MAR Hold] lactated Ringers 75 mL/hr (11/29/16 0747) PRN: fentaNYL (PF), midazolam (PF), [MAR Hold] sodium chloride 0.9 %, [MAR Hold] lidocaine, [MAR Hold] acetaminophen, [MAR Hold] ondansetron OR [MAR Hold] ondansetron Interval History: admitted for persistent melena and decreasing Hb and need for more urgent EGD ROS: no melena overnight. No chest pain, SOB, hematochezia, hematemesis. No fever or chills. Physical Exam Vitals Range last 24 hrs Temperature Temp: [36.7 ??C (98.1 ??F)-37.4 ??C (99.3 ??F)] Heart Rate Heart Rate: [65] Blood Pressure BP: (134-147)/(85-92) Respiratory Rate Resp: [16-18] SpO2 SpO2: [96 %-98 %] Intake/Output Summary (Last 24 hours) at 11/29/16 1134 Last data filed at 11/29/16 0930 Gross per 24 hour Intake 917 ml Output 1650 ml Net -733 ml No data found. There is no height or weight on file to calculate BMI. General: NAD, pleasant HEENT: MMM, OP clear CV: RRR, nl s1 s2, no murmur Lungs; clear, no crackles or wheezes Abdomen: soft, NT, ND, NABS Ext: no LE edema or cyanosis Skin: warm, dry; no rash Psych: normal mood and affect; preserved judgment Studies reviewed in eDH. Remarkable for the following: LABS: Recent Labs 11/29/1644911/28/162030 WBC 5.8 7.2 HGB 11.8* 12.4* HCT 33.3* 34.3* PLATELET 230 227 Recent Labs 11/29/1644911/28/162030 NA 139 142 K 3.9 3.9 CL 104 104 CO2 24 25 BUN 12 13 CREATININE 0.96 0.88 Recent Labs 11/28/162030 AST 53* ALT 59* ALKPHOS 50 BILITOT 0.9 BILIDIR 0.2 Recent Labs 11/29/1644911/28/162030 CALCIUM 8.3* 8.6 Recent Labs 11/28/162030 PT 13.7 INR 1.0 No results for input(s): CK, TROPONINT in the last 168 hours. FSBG Trend No results for input(s): POCGLU in the last 72 hours. MICRO: No results for input(s): URINECULTURE in the last 720 hours. No results for input(s): GRAMSTAIN, BFCX, LOWERRESPCX, TISSUECX in the last 720 hours. No results for input(s): BLOODCX in the last 720 hours. ECG: Recent Labs 11/28/16 1828 DIAGLINE Sinus rhythm with 1st degree A-V block Inferior infarct , age undetermined Abnormal ECG No previous ECGs available Confirmed by MD Morrow Timothy ([id number]) on 11/29/2016 8:22:01 AM QTCCALC 442 VASCULAR: No results for input(s): VBTEXTRPT in the last 720 hours. IMAGING: CXR: no acute infiltrates Assessment: 61 y.o. male with a history of esophageal ulcers with GI bleed on PPI therapy admitted with worsening melena and worsening anemia. She has been in and out of the ER at [facility] over the last few days, and therefore with persistent melena, and worsening anemia, the urgency for an EGD has increased. Fortunately, he is vitally stable awaiting EGD. ?? Plan: # Likely UGIB -Appreciate GI assistance -Cont IV PPI BID -NPO for EGD today: if negative, will d/w GI further investigations: colonoscopy, +/- capsule study -Maintain 2 large bore IVs -Serial CBC #Acute blood loss anemia -Hb has decreased from 14 to 11.8 -Monitor CBC as above DVT PPX: SCDs for now Anticipated Disposition: home when medically ready and bleeding has stopped Team Pager(MD Coverage 16/10): #[phone] PCP: Marin Patton MD [phone] Attestation: OBS status EL DINH MD 11/29/2016 Elana Patiño RN - 11/28/2016 4:40 PM EDT Victoriano arrived to the unit around 1600. AAOx4. VSS. paged for assessment. Lungs clear. Bowels actvie. Voiding adequate amounts. Pulses palpable. SBA. Left #18and Right #16 PIV. Pt denies pain and nausea. Will continue to monitor. Report received from [facility] Rosa PEREZ. documented in this encounter H&P Notes Kaiser Doyle MD - 11/29/2016 11:08 AM EDT Gastroenterology and Hepatology Pre-Procedure History and Physical Exam Procedure: EGD: Indication: melena ID: 61-year-old man with prior GI bleeds due to esophageal ulcers, most recently in 2012, who presented to OSH with several days of melena and Hgb 14 -> 12. He's remained stable since admission, with nofurther episodes of melena and stable Hgb. Patient Active Problem List Diagnosis Code ??? Esophageal ulcer K22.10 ??? Hematemesis K92.0 ??? Melena K92.1 ??? GI bleed K92.2 EXAM: HEENT: Airway examined, oropharynx clear Mallampati Score: II (soft palate, uvula, fauces visible) LUNGS: Clear to auscultation HEART: Regular rate and rhythm, normal S1, S2 ABDOMEN: Normal bowel sounds, soft, non tender, non distended, A/P Proceed with the planned endoscopic procedure. ASA 2 - Patient with mild systemic disease with no functional limitations Sedation Plan: moderate (conscious sedation) Risks and benefits of the procedure explained to the patient. Consent signed. Kaiser Doyle MD [facility] Gastroenterology Luis Fernando Sotelo MD - 11/28/2016 6:10 PM EDT Inpatient Hospital Medicine - Admission Note Problem List: Active Hospital Problems Diagnosis ??? GI bleed Resolved Hospital Problems Diagnosis Date Resolved No resolved problems to display. Active Non-Hospital Problems Diagnosis ??? Esophageal ulcer ??? Hematemesis ??? Melena ID: 61 y.o. Male presents to [facility] with melena History of Present Illness: HPI 61 year old man with h/o GI bleed 2/2 esophageal ulcers who presents with melena. He was seen at [facility] on 11/26 after an episode of melena. He had 1 at home then 2 in the hospital. Hemoglobin was 14. CT abdomen and pelvis concerning for and esophageal motility issue and enteritis. He was referred to Gen Surg as an outpatient for possible EGD. He reports approximately 5 more episodes of melena after being discharged from the ED. He called the Gen Surg who told them that his appointment would not be until CLAUDIA. In the interim, he also developed generalized weakness, and SOB with exertion. He denies CP, cough or fever. He denies abdominal pain, nausea, or vomiting. He returned to [facility] today and repeat Hgb was 12. He was subsequently transferred to [facility] for possible EGD. Review of Systems General: (-) fever, (-) chills, (-) fatigue, (-) weight gain, (-) weight loss Ophthalmic: (-) BOV ENT: (-) headache, (-) nasal congestion, (-) sore throat, (-) tinnitus, (-) vertigo Cardiovascular: no chest pain, palpitation, orthopnea, or PND Respiratory: no cough, shortness of breath, or wheezing Genito-Urinary: no dysuria, trouble voiding, or hematuria Neurological ROS: no TIA or stroke symptoms Musculoskeletal: (-) gait disturbance, (-) joint pain/ swelling, (-) muscle weakness Psychological: (-) anxiety, (-) depression, (-) hallucination Past Medical and Surgical History: Past Medical History: Diagnosis Date ??? GERD (gastroesophageal reflux disease) Past Surgical History: Procedure Laterality Date ??? COLONOSCOPY, DIAGNOSTIC 12/04/2012 COLONOSCOPY, DIAGNOSTIC performed by Real Jones MD at [facility] ENDOSCOPY ??? UPPER GI ENDOSCOPY, BIOPSY 12/04/2012 UPPER GASTROINTESTINAL ENDOSCOPY,WITH BIOPSY SINGLE OR MULTIPLE performed by Real Jones MD at [facility] ENDOSCOPY Prior To Admission Medications: Prescriptions Prior to Admission Medication Sig Dispense Refill Last Dose ??? esomeprazole (NEXIUM) 40 mg capsule Take 40 mg by mouth 2 times daily. 12/04/2012 at Unknown Allergies: No Known Allergies Family History: No family history on file. Social History and Habits: Social History Social History ??? Marital status: Spouse name: N/A ??? Number of children: N/A ??? Years of education: N/A Occupational History ??? Not on file. Social History Main Topics ??? Smoking status: Former Smoker Packs/day: 1.50 Years: 20.00 ??? Smokeless tobacco: Not on file Comment: Quit in 1984 ??? Alcohol use Yes Comment: Rare ??? Drug use: No ??? Sexual activity: Not on file Other Topics Concern ??? Not on file Social History Narrative ??? No narrative on file Immunizations: There is no immunization history on file for this patient. Physical Exam: Last Set of Vitals and range of vitals over past 24 hours: Last value Range last 24 hrs Temperature Temp: -- Heart Rate Heart Rate: -- Blood Pressure BP: -- Respiratory Rate Resp: -- SpO2 SpO2: -- There is no height or weight on file to calculate BMI. Physical Exam There were no vitals taken for this visit. General Appearance: Alert, cooperative, no distress, Head: Normocephalic, atraumatic Eyes: PERRL, conjunctiva/corneas clear, EOM's intact, Ears: Normal external ear canals, both ears Nose: Nares normal, septum midline, mucosa normal, Throat: Lips, mucosa, and tongue normal; Neck: Supple, symmetrical, trachea midline, no adenopathy; thyroid: No enlargement/tenderness/nodules; no JVD Back: no CVA tenderness Lungs: Clear to auscultation bilaterally, respirations unlabored Chest wall: No tenderness or deformity Heart: Regular rate and rhythm, S1 and S2 normal, no murmur, rub or gallop Abdomen: Soft, non-tender, bowel sounds active all four quadrants, no masses, no organomegaly Extremities: no cyanosis or edema Pulses: 2+ and symmetric all extremities Skin: no rashes or lesions Lymph nodes: Cervical nodes normal Laboratory (Last 24 Hours): No results found for this or any previous visit (from the past 24 hour(s)). Radiology: CXR - pending Other Studies: EKG - EKG Assessment: 61 year old man with h/o GI bleed 2/2 esophageal ulcers who presents with melena. He was seen at [facility] on 11/26 after an episode of melena. He had 1 at home then 2 in the hospital. Hemoglobin was 14. CT abdomen and pelvis concerning for and esophageal motility issue and enteritis. He was referred to Gen Surg as an outpatient for possible EGD. He reports approximately 5 more episodes of melena after being discharged from the ED. He called the Gen Surg who told them that his appointment would not be until CLAUDIA. In the interim, he also developed generalized weakness, and SOB with exertion. He denies CP, cough or fever. He denies abdominal pain, nausea, or vomiting. He returned to [facility] today and repeat Hgb was 12. He was subsequently transferred to [facility] for possible EGD. # UGIB - LR at 75 ml/hr while NPO - Serial H/H Q6H - PRBC if Hgb < 7 - IV PPI BID - GI consult for possible EGD # SOB - Check EKG and CXR Plan: Admit to Hospital Medicine Physical Therapy referral DVT Prophylaxis If currently a smoker - advised about smoking cessation and will provide smoking cessation material and support. Pneumovax and Influenza Immunizations given as needed. Discussed Advanced Directives and Code Status. The patient wishesto be Full Code. A copy of this document will be sent to the patient's Primary Care Physician and/or Referring Physician. Luis Fernanod Sotelo MD 11/28/2016 IPI Certification I certify that I am a D-H credentialed attending provider with admitting privileges and that the patient meets or has met medical necessity to require an inpatient IPI level of care meeting a minimum of two midnights or is on the [facility] inpatient only procedure list (status C) due to: GI bleed requiring close monitoring of Hgb and urgent EGD documented in this encounter Miscellaneous Notes Plan of Care - Stephani Resendiz RN - 11/30/2016 12:02 PM EDT Problem: Patient Care Overview Goal: Plan of Care Review Outcome: Outcome (s) achieved Date Met: 11/30/16 11/30/16 1158 Plan of Care Review Progress improving Coping/Psychosocial Plan Of Care Reviewed With patient OUTCOME EVALUATION NOTE: OUTCOME SUMMARY: Amanuel is doing great today. He is waiting for his sister to arrive to take him home. He is tolerating meals, voiding, no stools, no complaints. Amanuel was provided a hard copy of his AVS, it is reviewed in detail with him and all questions answered. He has f/u appointments scheduled and numbers to call with questions. PLAN MOVING FORWARD: Dc to home INDIVIDUALIZED FALL PREVENTION INTERVENTIONS: Patient-specific fall risk factors per assessment: [current deficits]: None Assistance [level of assistance required for transfers and ambulation]: independent Supervision [direct monitoring required during toileting and ADLs]: none Surveillance [continuous indirect monitoring]: Call vicki rogers, hourly rounds Patient-specific fall prevention interventions for sensory deficits provided, if applicable: no CPG GOAL OUTCOME EVALUATION: Plan of Care - Elana Patiño RN - 11/30/2016 3:45 AM EDT Problem: Patient Care Overview Goal: Plan of Care Review Outcome: Ongoing (Interventions Implemented as Appropriate) 11/29/16 1450 11/29/16 1928 Plan of Care Review Progress improving -- Coping/Psychosocial Plan Of Care Reviewed With -- patient OUTCOME EVALUATION NOTE: OUTCOME SUMMARY: Victoriano had a good night. Pt slept well. AAOx4. VSS. Pt denies pain and nausea. Pt voiding adequate amounts. Pt tolerating regular diet. Will continue to monitor. PLAN MOVING FORWARD: Encourage independence. Encourage ambulation. Encourage fluids/nutrition. Maintain pian control. Prepare for discharge today. INDIVIDUALIZED FALL PREVENTION INTERVENTIONS: Patient-specific fall risk factors per assessment: [current deficits]: None Assistance [level of assistance required for transfers and ambulation]: Independnet Supervision [direct monitoring required during toileting and ADLs]: Eyes on Surveillance [continuous indirect monitoring]: Masimo, purposeful rounding, call cohen in reach Patient-specific fall prevention interventions for sensory deficits provided, if applicable: [X] Yes, environmental modifications, lights adjusted to task, non- skid socks CPG GOAL OUTCOME EVALUATION: Plan of Care - Stephani Resendiz RN - 11/29/2016 3:02 PM EDT Problem: Patient Care Overview Goal: Plan of Care Review Outcome: Ongoing (Interventions Implemented as Appropriate) 11/29/16 1450 Plan of Care Review Progress improving Coping/Psychosocial Plan Of Care Reviewed With patient OUTCOME EVALUATION NOTE: OUTCOME SUMMARY: Amanuel is doing well today. He reports no stools, is voiding well, tolerating clears after his EGD.He ambulates independently with a steady gate. PLAN MOVING FORWARD: Monitor I/O, promote pt autonomy and provide a safe environment. INDIVIDUALIZED FALL PREVENTION INTERVENTIONS: Patient-specific fall risk factors per assessment: [current deficits]: unfamiliar environment Assistance [level of assistance required for transfers and ambulation]: Independent Supervision [direct monitoring required during toileting and ADLs]: Independent Surveillance [continuous indirect monitoring]: Masimo, hourly rounds, cherylimo No CPG GOAL OUTCOME EVALUATION: Initial Assessments - Desiree Fernandez RN - 11/29/2016 2:54 PM EDT Office of Care Management Initial Assessment Desiree Fernandez RN reviewed record and discussed patient with Care Team. Source of Information: eDH and patient Introduced self/reviewed role; services accepted. Reason for Hospitalization: GI Bleed Past Medical History: Diagnosis Date ??? GERD (gastroesophageal reflux disease) Hospitalizations Within the Past 30 Days: None Anticipated Length Of Stay (If known): TBD Current Decision-Making Capacity: Self, A&Ox3, Full Capacity, Cognitively able to make medical decisions Advance Care Planning: None on file Current Coping/Education/Information Needs: Coping well Current Functional Ability: Independent Functional Status Prior to Admission: Independent Home Environment: Lives with spouse, daughter 18 years old at home, single family home, 2 [address] with rail. Bed/bath second floor. Drive. 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 [address] [facility] [address] Social & Family Supports/Community Resources: Nata Extended Emergency Contact Information Primary Emergency Contact: Nata Hussein [place] Relation: Spouse Behavioral Health History: Denies Substance Use/Abuse: Denies smoking, alcohol use, and/or illicit drug use Other Pertinent/Service Specific Information: None Health/Prescription Coverage: Payor: VeryLastRoom / Plan: VeryLastRoom / Product Type: *No Product type* / Secondary Insurance: None Prescription Coverage: see above Preferred Pharmacy: Please use [facility] [address] [place] [address] - [address] [facility] [phone] [facility] [phone] Other: None Primary Care Provider: Dr. Zeynep MD [phone] Patient/Caregiver Goals of Treatment: Safe dc plan Potential Needs for Transition of Care: Rehab/SNF: NA Home Health: NA DME: NA Dialysis: NA Community Resources: pt is aware Transportation: /Sister, [place] Other: None Anticipated Barriers to Discharge/Special Considerations: None Plan: Patient is to discharge when medically ready. No dc needs identified at this time. A member of the Care Management team will continue to monitor progress, follow for continuity of care and assist with transition of care planning. HENRI Fernandez, MS, BSN, RN, Pager [phone] Office of Care Management Med Student Progress Note - Brittany Forde - 11/29/2016 8:23 AM EDT Inpatient Hospital Medicine Progress Note Patient info: Name: Amanuel Hussein : 1955 PCP: Marin Patton MD PCP phone number: [phone] Date of Admission: 11/28/2016 ( Hospital Day 1 day ) Responsible Attending:Zaheer Meyer DO Hospital Problem List: Active Hospital Problems Diagnosis ??? GI bleed Resolved Hospital Problems Diagnosis Date Resolved No resolved problems to display. ID: Mr Hussein is a 61 year old gentleman with history of esophageal ulcers (currently on nexium 40 once daily) presenting with GI bleed 24 Hour Events: - Transferred from [facility] d/t continued melena, and increased SOB, dizziness, and Hgb drop from 14 --> 12 (EGD could only be performed there) - Hgb trended: 12.4 --> 11.8 - LR at 75 cc/hr - GI saw, EGD at 11 AM S: SOB improved, no dizziness. No chest pain, N/V, has not had bowel movement since arrived at [facility] O: Vitals: Last value Range last 24 hrs Temperature Temp: 37 ??C (98.6 ??F) Temp: [36.7 ??C (98.1 ??F)-37.4 ??C (99.3 ??F)] Heart Rate Heart Rate: -- Blood Pressure BP: 134/85 BP: (134-147)/(85-92) Respiratory Rate Resp: 16 Resp: [16-18] SpO2 ORA SpO2: 96 % SpO2: [96 %-98 %] Intake/Output Summary (Last 24 hours) at 11/29/16 0823 Last data filed at 11/29/16 0654 Gross per 24 hour Intake 917 ml Output 1400 ml Net -483 ml No data found. Lines Physical Exam: Gen: NAD, A&Ox3, breathing comfortably on RA HEENT: PERRLA, EOMI, sclera anicteric, OP clear, MMM CVS: RRR with normal S1/S2, no appreciable m/r/g; peripheral pulsesfull and equal Pulm: CTA b/l, breathing non-labored with good air movement, no crackles/rhonchi or wheeze Abd: NABS, soft, NT, ND, no abnormal masses or pulsations Ext: WWP, no edema, no clubbing, no cyanosis. Chest/Back: no spinal tenderness, no CVAT Skin: Intact with no rashes, petechiae, or ecchymoses Neuro: CN 2-12 grossly intact; Laboratory: Labs summary: Hgb downtrended 12.4 --> 11.8 (14.7 in 2013) AST and ALT slightly elevated at 53 and 59 CBC: Recent Labs 11/29/1644911/28/162030 WBC 5.8 7.2 HGB 11.8* 12.4* PLATELET 230 227 Chemistry: Recent Labs 11/29/1644911/28/162030 NA 139 142 K 3.9 3.9 CL 104 104 CO2 24 25 BUN 12 13 CREATININE 0.96 0.88 GLUCOSE 109 101 Recent Labs 11/29/1644911/28/162030 CALCIUM 8.3* 8.6 LFT's: Recent Labs 11/28/162030 BILITOT 0.9 BILIDIR 0.2 ALBUMIN 3.7 ALKPHOS 50 ALT 59* AST 53* Coags: Recent Labs 11/28/162030 PT 13.7 INR 1.0 Microbiology: N/A Pertinent radiology/diagnostic studies: CXR 11/28/16 - no acute cardiopulmonary findings CT AP at OSH 11/26/16 - possible esophageal motility issue, fluid and contrast with some debris present in the esophagus. Possible enteritis, jejunal infiltrative process not excludable MEDICATIONS: Continuous Infusions: ??? lactated Ringers 75 mL/hr (11/29/16 0747) Scheduled Meds: ??? sodium chloride 0.9 % 5 mL Intravenous BID ??? pantoprazole 40 mg Intravenous BID PRN Meds:.sodium chloride 0.9 %, lidocaine, acetaminophen, ondansetron OR ondansetron Assessment/Plan: Amanuel Hussein is a 61 y.o. male with a history of esophageal ulcers with GI bleed. He is currently stable, awaiting EGD. Mr. Hussein's had esophageal ulcers ligated a few times since 2004 related to NSAIDs and GERD. He was seen here in [address] Jones after melena and hematemesis despite PPI therapy. At that time biopsies were taken d/t z-line irregularities, and SPARKS pH capsule study showed normal values. He had been on nexium 40 BID, but within the last couple of years has decreased this to once daily. He has notused any NSAIDs recently, and has had no changes and takes no other medications besides the nexium. #GI bleed - EGD around 11 today - NPO - LR 75 mL/hr - Protonix 40 mg IV BID - hold home esomeprazole magnesium (nexium) 40 mg PO once daily) - CBC tomorrow AM # FEN/PPx - DVT ppx: CI d/t GI bleed - Diet/Fluids: NPO, LR at 75 mL/hr - Access: PIV Code Status: Full Code Dispo: To home pending course Brittany Forde MS4 Pager - [phone] 11/29/2016 Plan of Care - Lizbeth Yanez RN - 11/29/2016 4:02 AM EDT Problem: Patient Care Overview Goal: Plan of Care Review Outcome: Ongoing (Interventions Implemented as Appropriate) 11/28/16199911/29/16 0353 Plan of Care Review Progress -- progress toward functional goals as expected Coping/Psychosocial Plan Of Care Reviewed With patient -- OUTCOME EVALUATION NOTE: OUTCOME SUMMARY: Amanuel had a good night last night. He was able to sleep throughout the majority of the night. He denies any pain, denies any nausea. He has been up independently in the room voiding adequate amount of clear Yellow urine. Will continue to monitor. PLAN MOVING FORWARD: Continue to monitor pain, encourage ambulation, monitor intake and output. Possible discharge in thenext coming days. INDIVIDUALIZED FALL PREVENTION INTERVENTIONS: Patient-specific fall risk factors per assessment: [current deficits]: none Assistance [level of assistance required for transfers and ambulation]: independent Supervision [direct monitoring required during toileting and ADLs]: Eyes on Surveillance [continuous indirect monitoring]: Hourly rounding, call cohen in reach Patient-specific fall prevention interventions for sensory deficits provided, if applicable: [X] YesLighting adjusted to task, environmental modifications, non skid socks when OOB. CPG GOAL OUTCOME EVALUATION: Consult Note - Kaiser Doyle MD - 11/28/2016 6:01 PM EDT Gastroenterology & Hepatology Inpatient Consultation Amanuel Hussein 1955 [id number] PCP: Marin Patton MD Date of Admission: 11/28/2016 ( Hospital Day 0 days ) Attg: Zaheer Meyer DO Source: patient Reason for Consult: melena History of Present Illness: 61-year-old healthy man with recurrent esophageal ulcers, transferred from OSH with several days of melena and Hgb 14 to 12. His last episodes of melena prior to this admission was in 2012, and at thattime was due to esophageal ulcer (see endoscopy report from [facility]). Atthat time, he had been taking NSAIDS which was thought to be the culprit (although path from this EGD is not in our system). Since then he has not had any NSAIDS. He otherwise is in his usual state of health- no nausea, no weight loss, no dysphagia, no abdominal pain. / SH reviewed Review of Systems: 10 systems reviewed, remainder negative unless otherwise indicated in HPI Active Hospital Problem List Patient Active Problem List Diagnosis Code ??? Esophageal ulcer K22.10 ??? Hematemesis K92.0 ??? Melena K92.1 ??? GI bleed K92.2 Past Surgical History: Procedure Laterality Date ??? COLONOSCOPY, DIAGNOSTIC 12/04/2012 COLONOSCOPY, DIAGNOSTIC performed by Real Jones MD at [facility] ENDOSCOPY ??? UPPER GI ENDOSCOPY, BIOPSY 12/04/2012 UPPER GASTROINTESTINAL ENDOSCOPY,WITH BIOPSY SINGLE OR MULTIPLE performed by Real Jones MD at [facility] ENDOSCOPY Medications Scheduled Meds: ??? sodium chloride 0.9 % 5 mL Intravenous BID ??? pantoprazole 40 mg Intravenous BID Continuous Infusions: ??? lactated Ringers 75 mL/hr (11/28/16 3921) PRN Meds:.sodium chloride 0.9 %, lidocaine, acetaminophen, ondansetron OR ondansetron Review of patient's allergies indicates no known allergies. Physical Examination Vitals: Last value Range last 24 hrs Temperature Temp: -- Heart Rate Heart Rate: -- Blood Pressure BP: ()/() Respiratory Rate Resp: -- SpO2 SpO2: -- No intake or output data in the 24 hours ending 11/28/16 1801 Wt Readings from Last 3 Encounters: 10/16/12 94.8 kg (209 lb) There is no height or weight on file to calculate BMI. There were no vitals filed for this visit. Gen: NAD Neuro: AAOx3, grossly normal Heent: NC/AT, anicteric sclera CVS: RRR no murmurs Lungs: CTAB Abd: soft, NT, ND, NABS Skin: no rash appreciated on forearms / LE Ext: no edema Labs: Reviewed in EMR. Recent pertinent labs include: No results for input(s): WBC, HGB, HCT, PLATELET, NEUTROABS in the last 168 hours. No results for input(s): NA, K, CL, CO2, BUN, CREATININE in the last 168 hours. No results for input(s): CALCIUM, MAGNESIUM, PHOS in the last 168 hours. No results for input(s): AST, ALT, ALKPHOS, BILITOT, BILIDIR in the last 168 hours. No results for input(s): INR, PT, PTT in the last 72 hours. Microbiology: Reviewed in eDH Pertinent Endoscopic Procedures/Reports: Reviewed in eDH August 21, 2012 [facility]: (per GI office note): EGD performed that revealed raw superficial ulceration at 40 cm measuring approximately 5-6 mm. It was hemostatic and no fibrin caps or visible vessel per report. The remainder of the esophagus was normal. 3 cm hiatal hernia (39-42 cm). Z-line irregular. Normal stomach. Normal duodenal bulb but whitish coating was noted on the duodenal tissue that was biopsied. Biopsies: esophagus lower at 40 cm~squamocolumnar mucosa with mild chronic inflammation but no ulcer. Duodenum 2nd portion~negative. Colonoscopy 12/04/12 at [facility] Impression: ? - The examined portion of the ileum ? was normal. ? - The cecum is normal. ? - The ascending colon is normal. ? - The transverse colon is normal. ? - The descending colon is normal. ? - The sigmoid colon is normal. ? - The rectum is normal. Pertinent Recent Imaging Reviewed in eDH Assessment: 61-year-old healthy man with recurrent esophageal ulcers, transferred from OSH with several days of melena and Hgb 14 to 12. He has remained hemodynamically stable, without any further evidence of GI bleeding overnight. We will precede with EGD this morning for further evaluation. Recommendations - 2 large bore IVs, active type and cross, IV PPI - EGD 11/29/16 -d/w attg, Dr. Doyle -please call w/ questions Julissa Medina MD, GI Fellow [phone] 11/28/2016 Attending Addendum: I have seen and examined the patient with Dr. Medina. We reviewed the medical record and pertinent studies and imaging. My evaluation and physical examination confirms the above findings. The assessment and plan were formulated in discussion with me at the time of the encounter and I agree with them as documented. Kaiser Doyle MD [facility] Gastroenterology documented in this encounter Plan of Treatment Upcoming Encounters Date Type Specialty Care Team Description 01/19/2022 Office Visit Radiation Oncology Clover Covarrubias, [facility] RADIATION ONCOLO G[facility] [place], [place] [address] (Wo rk) 12/04/2022 Hospital Encounter Gastroenterology Real Jones MD [facility] GASTROENTEROLOGY DEPT. [place], [place] [address] (Wo rk) Scheduled Procedures Name Priority Associated Diagnoses Date/Time COLONOSCOPY, DIAGNOSTIC 10 yr f/up Scheduled Referrals Name Type Priority Associated Diagnoses Order S chedule Referral to Outpatient Referral Routine Gastrointestinal Orde red: Thoracic Surgery hemorrhage, unspecified 11/29/2016 gastrointestinal hemorrhage type documented as of this encounter Procedures Procedure Name Priority Date/Time Associated Diagnosis Comme nts HEMOGRAM Routine 11/30/2016 6:19 Results for AM EDT this procedure are in the results section. DIFFERENTIAL, AUTOMATED Routine 11/30/2016 6:19 R esults for AM EDT this procedure are in the results section. CBC (WITH DIFF) Routine 11/30/2016 6:19 AM EDT BASIC METABOLIC PANEL Routine 11/30/2016 6:19 Res ults for (NON-FASTING) AM EDT this procedure are in the results section. SURGICAL PATHOLOGY Routine 11/29/2016 12:21 Resul ts for REPORT PM EDT this procedure are in the results section. SPECIMEN TO PATHOLOGY Routine 11/29/2016 12:21 Re sults for PM EDT this procedure are in the results section. UPPER GASTROINTESTINAL 11/29/2016 11:25 Melena ENDOSCOPY,WITH BIOPSY AM EDT IV SED per Medina SINGLE OR MULTIPLE (WRVU 2.49) HEMOGRAM Routine 11/29/2016 4:50 Results for AM EDT this procedure are in the results section. DIFFERENTIAL, AUTOMATED Routine 11/29/2016 4:50 R esults for AM EDT this procedure are in the results section. CBC (WITH DIFF) Routine 11/29/2016 4:50 AM EDT BASIC METABOLIC PANEL Routine 11/29/2016 4:50 Res ults for (NON-FASTING) AM EDT this procedure are in the results section. XR CHEST ONE VIEW Routine 11/28/2016 10:32 Result s for PM EDT this procedure are in the results section. HEMOGRAM Routine 11/28/2016 8:31 Results for PM EDT this procedure are in the results section. DIFFERENTIAL, AUTOMATED Routine 11/28/2016 8:31 R esults for PM EDT this procedure are in the results section. PROTHROMBIN TIME Routine 11/28/2016 8:31 Results for PM EDT this procedure are in the results section. CBC (WITH DIFF) Routine 11/28/2016 8:31 PM EDT HEPATIC FUNCTION PANEL Routine 11/28/2016 8:31 Re sults for PM EDT this procedure are in the results section. BASIC METABOLIC PANEL Routine 11/28/2016 8:31 Res ults for (NON-FASTING) PM EDT this procedure are in the results section. EKG 12-LEAD STAT 11/28/2016 6:28 Gastrointestinal Results for PM EDT hemorrhage, this procedure unspecified are in the gastrointestinal results hemorrhage type section. documented in this encounter Results XR Fluoro Barium Swallow (12/08/2016 11:16 AM EDT) Anatomical Region Laterality Modality N/A Radio Fluoroscopy Specimen (Source) Anatomical Location Collection Method / Collectio n Time Received Time / Laterality Volume Impressions 12/08/2016 11:46 AM EDT Moderate esophageal dysmotility. Recommend modified barium swallow in conjunction with speech therapy for furt her evaluation. Moderate size hiatal hernia, reducible u alfredo Valsalva maneuver. No gastroesophageal reflux is present. No evidence of stricture, ulceration, or other abnormality at the distal esophagus/stomach. I have personally reviewed the image(s) and the residents interpretation and agree with the findings, Steve Ocasio at 12/08/2016 11:46 AM Narrative 12/08/2016 11:46 AM EDT EXAMINATION: XR FLUORO BARIUM SWALLOW CLINICAL HISTORY: 61 M with hiatal herni a seen on EGD and bleeding ulcers from it- pls evaluate TECHNIQUE: Double contrast esophagram was performed . Fluoroscopic spot films were obtained. A timeout was conducted to verify patien t name, date of , MRN, and procedure to be performed. Fluoro time: 2.33 minutes COMPARISON: None FINDINGS: The esophagus is normal in course and ca liber, and is well distended on double contrast views. ??The mucosal pattern is normal. Patient swallowed without difficulty throughout the examination. There is adequate distention of the esop hagus with adequate visualization of the mucosa. No mucosal or mural abnormalitie s were noted.The esophageal vestibule was clearly visualized. There is evidence of moderate esophageal dysmotility, including splitting of bolus with incomplete clearance requirin g multiple successive swallows. Some tertiary contractions were noted. There was a moderate-sized ??hiatal brian ia visualized during Valsalva maneuvers. The gastroesophageal junction is normall y positioned at the level of the diaphragm. No evidence of gastroesophage al reflux is present in the YIP or supine position, and upon provocation wi th Valsalva maneuver. The barium pill passed through the esoph cookie without difficulty, and through the GE junction into the stomach without fur ther intervention. Procedure Note Steve Ocasio MD - 12/08/2016Format ting of this note might be different from the original. EXAMINATION: XR FLUORO BARIUM SWALLOW CLINICAL HISTORY: 61 M with hiatal herni a seen on EGD and bleeding ulcers from it- pls evaluate TECHNIQUE: Double contrast esophagram was performed . Fluoroscopic spot films were obtained. A timeout was conducted to verify patien t name, date of , MRN, and procedure to be performed. Fluoro time: 2.33 minutes COMPARISON: None FINDINGS: The esophagus is normal in course and ca liber, and is well distended on double contrast views. The mucosal pattern is n ormal. Patient swallowed without difficulty throughout the examination. There is adequate distention of the esop hagus with adequate visualization of the mucosa. No mucosal or mural abnormalitie s were noted.The esophageal vestibule was clearly visualized. There is evidence of moderate esophageal dysmotility, including splitting of bolus with incomplete clearance requirin g multiple successive swallows. Some tertiary contractions were noted. There was a moderate-sized hiatal hernia visualized during Valsalva maneuvers. The gastroesophageal junction is normall y positioned at the level of the diaphragm. No evidence of gastroesophage al reflux is present in the YIP or supine position, and upon provocation wi th Valsalva maneuver. The barium pill passed through the esoph cookie without difficulty, and through the GE junction into the stomach without fur ther intervention. IMPRESSION Moderate esophageal dysmotility. Recomme nd modified barium swallow in conjunction with speech therapy for furt her evaluation. Moderate size hiatal hernia, reducible u alfredo Valsalva maneuver. No gastroesophageal reflux is present. No evidence of stricture, ulceration, or other abnormality at the distal esophagus/stomach. I have personally reviewed the image(s) and the residents interpretation and agree with the findings, Steve Ocasio at 12/08/2016 11:46 AM El Dinh MD IMG FLUORO ORDERABLES Differential, Automated (11/30/2016 6:19 AM EDT) athologist Signature Neutrophils % 60.9 % [facility] LABORATORY Neutr Abs (ANC) 3.83 1.70 - [facility] 6.10 [facility] x10(3)/[facility] LABORATORY Lymphocytes % 26.1 % [facility] Lymphocytes Abs 1.6 0.9 - 3.2 [facility] x10(3)/[facility] LABORATORY Monocytes % 9.4 % [facility] Monocyte Abs 0.6 0.3 - 0.9 [facility] x10(3)/[facility] LABORATORY Eosinophils % 2.7 % [facility] Eosinophils Abs 0.2 0.0 - 0.4 [facility] x10(3)/[facility] LABORATORY Basophils % 0.6 % [facility] Basophils Abs 0.0 0.0 - 0.1 [facility] x10(3)/[facility] LABORATORY Immature Gran % 0.30 % [facility] Comment: Immature granulocytes(IG's)percentage an d absolute count will include metamyelocytes, myelocytes, and promyelo cytes. Blood smears from CBCs yielding IG's will be scanned manually for concor dance. If this scan disagrees with the automated IG or if promyelocytes are not ed, a manual differential will be performed. Malika Gran Abs 0.02 0.00 - 0.04 x10(3)/[facility] LABORATORY Specimen Anatomical Collection Method Collection Time Receive d Time (Source) Location / / Volume Laterality Blood specimen 11/30/2016 6:19 AM 017 6:54 (specimen) EDT AM EDT Resulting Agency Comment Spec In Lab Luis Fernando Sotelo MD HEMATOLOGY ORDERABLES Performing Organization Address City/State/[place] [address] (ABNORMAL) Hemogram (11/30/2016 6:19 AM EDT) Analysis Performed At Patho logist Time Signature WBC 6.3 4.0 - 9.5 [facility](3[facility] LABORATORY RBC 3.85 (L) 4.58 - [facility] 5.54 [facility] x10(6)/[facility] LABORATORY Hemoglobin 13.0 (L) 13.7 - [facility] 16.[facility] gm/dL [facility] Hematocrit 34.9 (L) 40.5 - [facility] 48.5 % [facility] MCV 90.6 82.9 - [facility] 93.1 [facility] LABORATORY MCH 33.8 (H) 27.5 - [facility] 32.1 pg [facility] MCHC 37.2 (H) 32.0 - [facility] 35.7 gm/dL [facility] Platelets 267 145 - 357 [facility] x10(3)/[facility] LABORATORY RDWSD 38.4 36.0 - [facility] 45.0 [facility] LABORATORY RDWCV 11.7 11.4 - [facility] 13.8 % [facility] LABORATORY MPV 8.6 7.6 - 12.9 [facility] LABORATORY nRBC % Auto 0.0 % [facility] nRBC Abs Auto 0.000 0.000 - [facility] 0.000 [facility] x10(3)/[facility] LABORATORY Specimen Anatomical Collection Method Collection Time Receive d Time (Source) Location / / Volume Laterality Blood specimen 11/30/2016 6:19 AM 017 6:54 (specimen) EDT AM EDT Resulting Agency Comment Spec In Lab Luis Fernando Sotelo MD HEMATOLOGY ORDERABLES Performing Organization Address City/State/[place] [address] (ABNORMAL) Basic Metabolic Panel (non-fasting) (11/30/2016 6:19 AM EDT) P athologist Signature Glucose Lvl 109 65 - 199 [facility] mg/dL [facility] Comment: Diabetes: >=200 mg/dL plus symp toms BUN 9 (L) 10 - 20 mg/dL [facility] Creatinine 0.87 0.80 - 1.50 mg/dL [facility] LAB[facility] Comment: Please note that the pediatric reference intervals supplied above were not validated at [facility]. Results from pediatri c patients should be interpreted in conjunction to the patient's age, height and muscle mass. Sodium 139 135 - 145 mmol/L [facility] Potassium 3.8 3.5 - 5.0 mmol/L [facility] Comment: Please note: ??Patients with WBC >100,00 0 may have falsely elevated Potassium levels. ??For accurate Potassium quantif ication in these patients send serum separator tube (gold top) for subsequent determinations. ??Contact the Clinical Chemistry Laboratory if there are any qu estions. Chloride 103 98 - 107 mmol/L [facility] CO2 23 22 - 31 mmol/L [facility] Anion Gap 13 5 - 15 mmol/L [facility] Calcium 8.6 8.5 - 10.5 mg/dL [facility] Estimated GFR >60 >=60 [facility] Comment: This estimated GFR (eGFR) value was calc ulated using the MDRD equation which has been validated on patients between t he ages of 18 and 70. The MDRD should not be used to assess kidney function in patients < 18 years of age or in patients with extremes of body mass, or in patients with acute kidney failure. This value should be multiplied by 1.2 f or patients. For further information please copy and past e the following links into your internet browser. [email or web address] Specimen Anatomical Collection Method Collection Time Receive d Time (Source) Location / / Volume Laterality Blood specimen 11/30/2016 6:19 AM 017 6:55 (specimen) EDT AM EDT Resulting Agency Comment Spec In Lab Luis Fernando Sotelo MD CHEMISTRY ORDERABLES Performing Organization Address City/State/[place] [address] Surgical Pathology Report (11/29/2016 12:21 PM EDT) Component Value Ref Test Analysis Performed At [facility] gist Range Method Time Signature Surgical [id number] ? Location: [address] [place] [address] Report The signing pathologist has (i) examined the relevant preparation(s) for the [facility] specimen(s) and (ii) rendered or confirmed the diagnosis(es) . HOSPITAL LABORATORY . ?Surgic al Pathology DIAGNOSIS Ulcer in proximal stomach distal to GE junction: Squamocolumnar junctional mucosa (cardia type) with mild a ctive and chronic inflammation, and pancreatic metaplasia . ??There is no evidence of intestinal metaplasia and dysplasia. Electronically signed by: ??Gerard PEREZ, Louisa Verified: ??12/02/2016 ?Pathologist CLINICAL INFORMATION Specimen Submitted: A - Ulcer in proximal stomach distal to GE junction Clinical History: Melena Clinical Diagnosis: Esophageal ulcer in hiatal hernia rule out malignancy SPECIMEN PROCESSING A - Labeled/Fixative: Ulcer in proximal stomach distal to GE junction, formalin. Quantity/Size: Three, 0.2-0.3 cm. Tissue Description: Soft tse tissue. Sections/Processing: (T1) ??dolores Specimen (Source) Anatomical Collection Method Collection Time Re ceived Time Location / / Volume Laterality 11/29/2016 12:21 PM EDT Kaiser Doyle MD PATHOLOGY/CYTOLOGY ORDERABLE S Performing Organization Address City/[facility]/[place] [address] Specimen to Pathology (surgical or derm) (11/29/2016 12:21 PM EDT) Specimen Anatomical Collection Method Collection Time Receive d Time (Source) Location / / Volume Laterality AP Specimen 11/29/2016 12:21 11/29/2016 PM EDT 12:21 PM EDT Narrative [facility]Y - 11/29/2016 12:21 PM EDT Specimen requisition ordered. ??Separate Pathology report to follow Kaiser Doyle MD PATHOLOGY/CYTOLOGY ORDERABLE S Performing Organization Address City/State/[place] [address] Differential, Automated (11/29/2016 4:50 AM EDT) P athologist Signature Neutrophils % 62.0 % [facility] Neutr Abs (ANC) 3.62 1.70 - [facility] 6.10 [facility] x10(3)/[facility] LABORATORY Lymphocytes % 25.9 % [facility] Lymphocytes Abs 1.5 0.9 - 3.2 [facility] x10(3)/[facility] LABORATORY Monocytes % 8.4 % [facility] Monocyte Abs 0.5 0.3 - 0.9 [facility] x10(3)/[facility] LABORATORY Eosinophils % 2.7 % [facility] Eosinophils Abs 0.2 0.0 - 0.4 [facility] x10(3)/[facility] LABORATORY Basophils % 0.7 % [facility] Basophils Abs 0.0 0.0 - 0.1 [facility] x10(3)/[facility] LABORATORY Immature Gran % 0.30 % [facility] Comment: Immature granulocytes(IG's)percentage an d absolute count will include metamyelocytes, myelocytes, and promyelo cytes. Blood smears from CBCs yielding IG's will be scanned manually for concor dance. If this scan disagrees with the automated IG or if promyelocytes are not ed, a manual differential will be performed. Malika Gran Abs 0.02 0.00 - 0.04 x10(3)/[facility] LABORATORY Specimen Anatomical Collection Method Collection Time Receive d Time (Source) Location / / Volume Laterality Blood specimen 11/29/2016 4:50 AM 017 5:22 (specimen) EDT AM EDT Resulting Agency Comment Spec In Lab Luis Fernando Sotelo MD HEMATOLOGY ORDERABLES Performing Organization Address City/State/[place] [address] (ABNORMAL) Hemogram (11/29/2016 4:50 AM EDT) Analysis Performed At Patho logist Time Signature WBC 5.8 4.0 - 9.5 [facility](3[facility] LABORATORY RBC 3.59 (L) 4.58 - [facility] MIGUELINA 5.54 [facility] x10(6)/[facility] LABORATORY Hemoglobin 11.8 (L) 13.7 - [facility] 16.5 gm/dL [facility] LABORATORY Hematocrit 33.3 (L) 40.5 - [facility] 48.5 % [facility] LAB[facility]ORY MCV 92.8 82.9 - [facility] 93.1 [facility] LABORATORY MCH 32.9 (H) 27.5 - [facility] 32.1 pg [facility] LABORATORY MCHC 35.4 32.0 - [facility] 35.7 gm/dL [facility] LABOR[facility]ORY Platelets 230 145 - 357 [facility] x10(3)/[facility] LABORATORY RDWSD 39.4 36.0 - [facility] 45.0 [facility] LABORATORY RDWCV 11.5 11.4 - [facility] 13.8 % [facility] LABORATORY MPV 8.5 7.6 - 12.9 [facility] LABORATORY nRBC % Auto 0.0 % [facility] nRBC Abs Auto 0.000 0.000 - [facility] 0.000 [facility] x10(3)/[facility] LABORATORY Specimen Anatomical Collection Method Collection Time Receive d Time (Source) Location / / Volume Laterality Blood specimen 11/29/2016 4:50 AM 017 5:22 (specimen) EDT AM EDT Resulting Agency Comment Spec In Lab Luis Fernando Sotelo MD HEMATOLOGY ORDERABLES Performing Organization Address City/State/[place] [address] (ABNORMAL) Basic Metabolic Panel (non-fasting) (11/29/2016 4:50 AM EDT) P athologist Signature Glucose Lvl 109 65 - 199 [facility] mg/dL [facility]ORY Comment: Diabetes: >=200 mg/dL plus symp toms BUN 12 10 - 20 mg/dL [facility] Creatinine 0.96 0.80 - 1.50 mg/dL [facility] Comment: Please note that the pediatric reference intervals supplied above were not validated at [facility]. Results from pediatri c patients should be interpreted in conjunction to the patient's age, height and muscle mass. Sodium 139 135 - 145 mmol/L [facility]ORY Potassium 3.9 3.5 - 5.0 mmol/L [facility] Comment: Please note: ??Patients with WBC >100,00 0 may have falsely elevated Potassium levels. ??For accurate Potassium quantif ication in these patients send serum separator tube (gold top) for subsequent determinations. ??Contact the Clinical Chemistry Laboratory if there are any qu estions. Chloride 104 98 - 107 mmol/L [facility] CO2 24 22 - 31 mmol/L [facility] Anion Gap 11 5 - 15 mmol/L [facility] Calcium 8.3 (L) 8.5 - 10.5 mg/dL [facility]ORY Estimated GFR >60 >=60 [facility] Comment: This estimated GFR (eGFR) value was calc ulated using the MDRD equation which has been validated on patients between t he ages of 18 and 70. The MDRD should not be used to assess kidney function in patients < 18 years of age or in patients with extremes of body mass, or in patients with acute kidney failure. This value should be multiplied by 1.2 f or patients. For further information please copy and past e the following links into your internet browser. [email or web address] Specimen Anatomical Collection Method Collection Time Receive d Time (Source) Location / / Volume Laterality Blood specimen 11/29/2016 4:50 AM 017 5:22 (specimen) EDT AM EDT Resulting Agency Comment Spec In Lab Luis Fernando Sotelo MD CHEMISTRY ORDERABLES Performing Organization Address City/State/[place] [address] XR Chest PA or AP 1 view (11/28/2016 10:32 PM EDT) Anatomical Region Laterality Modality Chest N/A Digital Radiography Specimen (Source) Anatomical Location Collection Method / Collectio n Time Received Time / Laterality Volume Impressions 11/29/2016 5:51 AM EDT No acute cardiopulmonary findings. Narrative 11/29/2016 5:51 AM EDT EXAMINATION: XR CHEST PA OR AP 1 VIEW CLINICAL HISTORY: SOB TECHNIQUE: Single frontal view of the chest COMPARISON: None FINDINGS: No focal consolidation. Cardiomediastina l silhouette is within normal limits. No effusions or pneumothorax. Procedure Note Ferny Robertson MD - 11/29/2016Formatti ng of this note might be different from the original. EXAMINATION: XR CHEST PA OR AP 1 VIEW CLINICAL HISTORY: SOB TECHNIQUE: Single frontal view of the chest COMPARISON: None FINDINGS: No focal consolidation. Cardiomediastina l silhouette is within normal limits. No effusions or pneumothorax. IMPRESSION No acute cardiopulmonary findings. Luis Fernando Sotelo MD IMG DX ORDERABLES Differential, Automated (11/28/2016 8:31 PM EDT) P athologist Signature Neutrophils % 59.9 % [facility] LABORATORY Neutr Abs (ANC) 4.33 1.70 - [facility] 6.10 [facility] x10(3)/[facility] LABORATORY Lymphocytes % 30.1 % [facility] LABORATORY Lymphocytes Abs 2.2 0.9 - 3.2 [facility] x10(3)/[facility] LABORATORY Monocytes % 7.1 % [facility] LABORATORY Monocyte Abs 0.5 0.3 - 0.9 [facility] x10(3)/[facility] LABORATORY Eosinophils % 2.1 % [facility] LABOR[facility]ORY Eosinophils Abs 0.2 0.0 - 0.4 [facility] x10(3)/[facility] LABORATORY Basophils % 0.7 % [facility] LABORATORY Basophils Abs 0.0 0.0 - 0.1 [facility] x10(3)/[facility] LABORATORY Immature Gran % 0.10 % [facility] LABORATORY Comment: Immature granulocytes(IG's)percentage an d absolute count will include metamyelocytes, myelocytes, and promyelo cytes. Blood smears from CBCs yielding IG's will be scanned manually for concfrida danhieu. If this scan disagrees with the automated IG or if promyelocytes are not ed, a manual differential will be performed. Malika Gran Abs 0.01 0.00 - 0.04 x10(3)/[facility] LABORATORY Specimen Anatomical Collection Method Collection Time Receive d Time (Source) Location / / Volume Laterality Blood specimen 11/28/2016 8:31 PM 017 8:35 (specimen) EDT PM EDT Resulting Agency Comment Spec In Lab Luis Fernando Sotelo MD HEMATOLOGY ORDERABLES Performing Organization Address City/State/[place] [address] (ABNORMAL) Hemogram (11/28/2016 8:31 PM EDT) Analysis Performed At Patho logist Time Signature WBC 7.2 4.0 - 9.5 [facility] x10(3)/[facility] LABORATORY RBC 3.76 (L) 4.58 - [facility] 5.54 [facility] x10(6)/[facility] LABORATORY Hemoglobin 12.4 (L) 13.7 - [facility] 16.5 gm/dL [facility] LABORATORY Hematocrit 34.3 (L) 40.5 - [facility] MIGUELINA 48.5 % [facility] LABORATORY MCV 91.2 82.9 - [facility] 93.1 [facility] LABORATORY MCH 33.0 (H) 27.5 - [facility] MIGUELINA 32.1 pg [facility] LABORATORY MCHC 36.2 (H) 32.0 - [facility] 35.7 gm/dL [facility] LABORATORY Platelets 227 145 - 357 [facility] x10(3)/[facility] LABORATORY RDWSD 39.5 36.0 - [facility] MIGUELINA 45.0 [facility] LABORATORY RDWCV 11.8 11.4 - [facility] MIGUELINA 13.8 % [facility] LABORATORY MPV 8.4 7.6 - 12.9 [facility] LABORATORY nRBC % Auto 0.0 % [facility] LABORATORY nRBC Abs Auto 0.000 0.000 - [facility] 0.000 [facility] x10(3)/[facility] LABORATORY Specimen Anatomical Collection Method Collection Time Receive d Time (Source) Location / / Volume Laterality Blood specimen 11/28/2016 8:31 PM 017 8:35 (specimen) EDT PM EDT Resulting Agency Comment Spec In Lab Luis Fernando Sotelo MD HEMATOLOGY ORDERABLES Performing Organization Address City/[facility]/[place] [address] Prothrombin Time (11/28/2016 8:31 PM EDT) P athologist Signature PT 13.7 12.0 - 15.0 [facility] LABORATORY Comment: An INR <2.0 indicates adequate procoagul ant activity for hemostasis in most patients without underlying bleeding dis orders, though the INR may not adequately reflect hemostatic capacity i n patients with liver disease and synthetic impairment. The recommended ta rget INR range for therapeutic anticoagulation is 2.0 ? 3.0 for most applications, though lower and higher ranges may be appropriate depending on c linical circumstances. INR 1.0 0.9 - 1.1 [facility] LABORATORY Specimen Anatomical Collection Method Collection Time Receive d Time (Source) Location / / Volume Laterality Blood specimen 11/28/2016 8:31 PM 017 8:35 (specimen) EDT PM EDT Resulting Agency Comment Spec In Lab Luis Fernando Sotelo MD HEMATOLOGY ORDERABLES Performing Organization Address City/[facility]/[place] [address] (ABNORMAL) Hepatic Function Panel (11/28/2016 8:31 PM EDT) P athologist Signature Total Protein 6.6 6.1 - 8.0 [facility] gm/dL [facility] LABORATORY Albumin 3.7 3.2 - 5.2 [facility] gm/dL [facility] LABORATORY AST 53 (H) 0 - 39 [facility] unit/L [facility] LABORATORY ALT 59 (H) 0 - 55 [facility] unit/L [facility] LABORATORY Alk Phos 50 40 - 120 [facility] unit/L [facility] LABORATORY Total 0.9 0.2 - 1.3 [facility] Bilirubin mg/dL [facility] LABORATORY Bili, Direct 0.2 0.0 - 0.3 [facility] mg/dL [facility] LABORATORY Specimen Anatomical Collection Method Collection Time Receive d Time (Source) Location / / Volume Laterality Blood specimen 11/28/2016 8:31 PM 017 8:35 (specimen) EDT PM EDT Resulting Agency Comment Spec In Lab Luis Fernando Sotelo MD CHEMISTRY ORDERABLES Performing Organization Address City/State/[place] [address] Basic Metabolic Panel (non-fasting) (11/28/2016 8:31 PM EDT) P athologist Signature Glucose Lvl 101 65 - 199 [facility] mg/dL [facility] Comment: Diabetes: >=200 mg/dL plus symp toms BUN 13 10 - 20 mg/dL [facility] Creatinine 0.88 0.80 - 1.50 mg/dL [facility] Comment: Please note that the pediatric reference intervals supplied above were not validated at [facility]. Results from pediatri c patients should be interpreted in conjunction to the patient's age, height and muscle mass. Sodium 142 135 - 145 mmol/L [facility] Potassium 3.9 3.5 - 5.0 mmol/L [facility] Comment: Please note: ??Patients with WBC >100,00 0 may have falsely elevated Potassium levels. ??For accurate Potassium quantif ication in these patients send serum separator tube (gold top) for subsequent determinations. ??Contact the Clinical Chemistry Laboratory if there are any qu estions. Chloride 104 98 - 107 mmol/L [facility] CO2 25 22 - 31 mmol/L [facility] Anion Gap 13 5 - 15 mmol/L [facility] Calcium 8.6 8.5 - 10.5 mg/dL [facility] Estimated GFR >60 >=60 [facility] Comment: This estimated GFR (eGFR) value was calc ulated using the MDRD equation which has been validated on patients between t he ages of 18 and 70. The MDRD should not be used to assess kidney function in patients < 18 years of age or in patients with extremes of body mass, or in patients with acute kidney failure. This value should be multiplied by 1.2 f or patients. For further information please copy and past e the following links into your internet browser. [email or web address] [email or web address] Specimen Anatomical Collection Method Collection Time Receive d Time (Source) Location / / Volume Laterality Blood specimen 11/28/2016 8:31 PM 017 8:35 (specimen) EDT PM EDT Resulting Agency Comment Spec In Lab Luis Fernando Sotelo MD CHEMISTRY ORDERABLES Performing Organization Address City/State/[place] [address] EKG 12 Lead (11/28/2016 6:28 PM EDT) Component Value Ref Range Test Analysis Performed Pathologis t Method Time At Signature Ventricular rate 61 BPM MUSE SYSTEM Atrial Rate 61 BPM MUSE SYSTEM P-R Interval 210 ms MUSE SYSTEM QRS Duration 84 ms MUSE SYSTEM Q-T Interval 440 ms MUSE SYSTEM QTC Calculated 442 ms MUSE SYSTEM (Bezet) Calculated P [place] 22 degrees MUSE SYSTEM Calculated R [place] -6 degrees MUSE SYSTEM Calculated T [place] 23 degrees MUSE SYSTEM INTERPRETATION Sinus rhythm with 1st degree A-V block MUSE SYSTEM Inferior infarct , age undetermined Abnormal ECG No previous ECGs available Confirmed by MD Morrow Timothy ([id number]) on 11/29/2016 8:22:01 AM Specimen Anatomical Collection Method Collection Time Receive d Time (Source) Location / / Volume Laterality 11/28/2016 6:28 PM 7 8:22 EDT AM EDT Luis Fernando Sotelo MD ECG ORDERABLES Performing Organization Address City/State/ZIP Code Phon e Number MUSE SYSTEM documented in this encounter Visit Diagnoses Diagnosis Gastrointestinal hemorrhage, unspecified gastrointestinal hemorrhage type Melena Blood in stool Hiatal hernia Diaphragmatic hernia without mention of obstruction or gangrene Esophageal ulcer Ulcer of esophagus without bleeding Gastrointestinal hemorrhage, unspecified gastrointestinal hemorrhage type documented in this encounter Admitting Diagnoses Diagnosis GI bleed Hemorrhage of gastrointestinal tract, un specified documented in this encounter Administered Medications Inactive Administered Medications - up to 3 most recent administrations Medication Order MAR Action Action Date Dose Rate Site lactated Ringers infusion New Bag 11/29/2016 7:47 AM EDT 75 mL/hr 75 mL/hr 75 mL/hr, Intravenous, CONTINUOUS, Starting on Sun11/28/16 at 1730, Until Sun11/29/16 at 1729 New Bag 11/28/2016 5:59 PM EDT 75 mL/hr 75 mL/hr ondansetron (ZOFRAN) injection 4 mg 4 mg, Intravenous, EVERY 8 HOURS PRN, Starting on Sun11/28/16 at 1714, Until Claudia 11/30/16 at 1612, Nausea, May repeat times one in 30 minutes if ineffective. If multiple antiemetics are ordered, give ondansetron fir st. ondansetron (ZOFRAN) tablet 4 mg 4 mg, Oral, EVERY 8 HOURS PRN, Starting on Sun11/28/16 at 1714, Until Claudia 11/30/16 at 1612, Nausea, Vomiting, If multiple antiemetics are ordered, use ondansetron first. PO Preferred. If patient unable to take PO, may give IV if ordered. May repeat times one in 45 minutes if ineffe ctive. If unable to take PO, may give IV., Routine pantoprazole (PROTONIX) injection 40 mg Given 11/30/2016 9:22 AM EDT 40 mg 40 mg, Intravenous, 2 TIMES DAILY, First dose on Sun11/28/16 at 2100, Until Discontinued Given 11/29/2016 9:38 PM EDT 40 mg Given 11/29/2016 9:15 AM EDT 40 mg sodium chloride 0.9 % flush 5 mL Given 11/30/2016 9:22 AM EDT 5 mLs 5 mL, Intravenous, 2 TIMES DAILY, First dose on Sun11/28/16 at 2100, Until Discontinued, Routine Given 11/29/2016 9:38 PM EDT 5 mLs Given 11/29/2016 9:15 AM EDT 5 mLs documented in this encounter Active and Recently Administered Medications Times are shown in EDT. Scheduled Medication Order 11/28/2016 11/29/201611/30/2016 pantoprazole (PROTONIX) injection 40 mg 2038 (Given - Provider: Lizbeth Yanez, RN) 0915 (Given - Provider: Stephani Resendiz, RN)1058 ([facility] Hold - Provider: Admin Adt - Reason: Transfer to a Procedural area)1320 ([facility] Unhold - Provider: Admin Adt)213 (Given - Provider: Elana Patiño, RN) 0922 (Given - Provider: Stephani Resendiz, RN) 40 mg, Intravenous, 2 TIMES DAILY, First dose on Sun11/28/16 at 2100, Until Discontinued sodium chloride 0.9 % flush 5 mL 2039 (Given - Provide r: Lizbeth Yanez, RN) 0915 (Given - Provider: Stephani Resendiz, ANA)1058 ([facility] Hold - Provider: Admin Adt - Reason: Transfer to a Procedural area)1320 ([facility] Unhold - Provider: Admin Adt)2137 (Given - Provider: Elana Patiño, ANA) 0922 (Given - Provider: Stephani Resendiz, ANA) 5 mL, Intravenous, 2 TIMES DAILY, First dose on Sun11/28/16 at 2100, Until Discontinued, Routine Continuous Medication Order 11/28/2016 11/29/2016 11/30/2016 lactated Ringers infusion 1759 (New Bag - Provider: Clover Lucero RN) 0747 (New Bag - Provider: Stephani Resendiz, ANA)1058 ([facility] Hold - Provider: Admin Adt - Reason: Transfer to a Procedural area)1320 ([facility] Unhold - Provider: Admin Adt) 75 mL/hr, at 75 mL/hr, Intravenous, CONT INUOUS, Starting Sun11/28/16 at 1730, Until Sun11/29/16 at 1729 PRN Medication Order 11/28/2016 11/29/2016 11/30/2016 acetaminophen (TYLENOL) tablet 650 mg 10 58 ([facility] Hold - Provider: Admin Adt - Reason: Transfer to a Procedural area)1320 ([facility] Unhold - Provider: Admin Adt) 650 mg, Oral, EVERY 6 HOURS PRN, Startin g Sun11/28/16 at 1714, Until Claudia 11/30/16 at 1612, Pain, Fever, Administer for temperature greater than or equal to 38.2 degrees celsius. Maximum daily dose of aceta minophen from all sources not to exceed 4,000 mg., Routine fentaNYL 50 mcg/mL multi-dose injection (CANCELED) 1130 (Given - Provider: Fiordaliza Knutson RN)1136 (Given - Provider: Fiordaliza Knutson RN)1139 (Given - Provider: Fiordaliza Knutson RN)1146 (Given - Provider: Fiordaliza Knutson, ANA)1150 (Given - Provider: Fiordaliza Knutson RN) ONCE PRN, Starting Sun11/29/16 at 1130, U ntil Claudia 11/30/16 at 1612, Intra-Operative (Intra-Procedure), Routine lidocaine (XYLOCAINE) 10 mg/mL (1 %) injection 3 mg 1058 ([facility] Hold - Provider: Admin Adt - Reason: Transfer to a Procedural area)1320 ([facility] Unhold - Provider: Admin Adt) 3 mg (0.3 mL), Subcutaneous, ONCE PRN, 1 dose, Starting Sun11/28/16 at 1714, Until Claudia 11/30/16 at 1612, for discomfort with PIV insertion, Routine midazolam (PF) (VERSED) 1 mg/mL multi-dose injection (CANCEL ED) 1130 (Given - Provider: Fiordaliza Knutson RN)1136 (Given - Provider: Fiordaliza Knutson RN)1139 (Given - Provider: Fiordaliza Knutson RN) ONCE PRN, Starting Sun11/29/16 at 1130, U ntil Claudia 11/30/16 at 1612, Intra-Operative (Intra-Procedure), Routine ondansetron (ZOFRAN) injection 4 mg(Linked Group 1) 1058 ([facility] Hold - Provider: Admin Adt - Reason: Transfer to a Procedural area)1320 ([facility] Unhold - Provider: Admin Adt) 4 mg, Intravenous, EVERY 8 HOURS PRN, St arting Sun11/28/16 at 1714, Until Claudia 11/30/16 at 1612, Nausea, May repeat times one in 30 minutes if ineffective. If multiple antiemetics are ordered, give ondansetron first. ondansetron (ZOFRAN) tablet 4 mg(Linked Group 1) 1058 ([facility] Hold - Provider: Admin Adt - Reason: Transfer to a Procedural area)1320 ([facility] Unhold - Provider: Admin Adt) 4 mg, Oral, EVERY 8 HOURS PRN, Starting 11/28/16 at 1714, Until Claudia 11/30/16 at 1612, Nausea, Vomiting, If multiple antiemetics are ordered, use ondansetron first. PO Preferred. If patient unable to take PO, may give IV if ordered. May re peat times one in 45 minutes if ineffective. If unable to take PO, may give IV., Routine sodium chloride 0.9 % flush 5-20 mL 1058 ([facility] Hold - Provider: Admin Adt - Reason: Transfer to a Procedural area)1320 ([facility] Unhold - Provider: Admin Adt) 5-20 mL, Intravenous, EVERY 1 MIN PRN, S tarting e 11/28/16 at 1714, Until Claudia 11/30/16 at 1612, flush, Flush pertains to all indwelling lines. Flush per protocol found in the job aid using the link provided on this medication record., Routine Linked Groups Order Group 1: ondansetron (ZOFRAN) tablet 4 mgJump to med 4 mg, Oral, EVERY 8 HOURS PRN, Starting 11/28/16 at 1714, Until Claudia 11/30/16 at 1612, Nausea, Vomiting
If multiple antiemetics are ordered, use ondansetron first. PO Preferred. If patient unable to take PO, may give IV if ordered. May repeat times one in 45 minutes if ineffective. If unable to take PO, may give IV.
Routine Or ondansetron (ZOFRAN) injection 4 mgJump to med 4 mg, Intravenous, EVERY 8 [address] PRN, St arting e 11/28/16 at 1714, Until Claudia 11/30/16 at 1612, Nausea
May repeat times one in 30 minutes if ineffective. If multiple antiemetics are ordered, give ondansetron first.
documented in this encounter Care Teams Drink Waiter Relationship Specialty Start Date End Date Marin Patton MD PCP - General 02/15/10 01/25/17 documented as of this encounter
--- OUTSIDE RECORDS SUMMARY | 2021-12-30 01:33 | XMS_ITS | Encounter Summary ---
:1955 [place] [address] Care Team Providers Name Role Phone Clara Wood MD Primary Care Provider Encounter Details Date Type Department Care Team Description 09/04/2017 Hospital Encounter Radiology Library at [facility] [place] [facility] [place] [address] UROLOGY DEPT [phone] [place], [place] [address] (Wo rk) Social History Tobacco [...] Radiation Oncology Clover Covarrubias APRN [facility] RADIATION ON[place]JENNIFER [place], [place] [address] (Wo rk) 12/04/2022 Hospital Encounter Gastroenterology Real Jones MD [facility] GASTROENTEROLOGY DEPT. [place], [place] [address] (Wo rk) Scheduled Procedures Name Priority Associated Diagnoses Date/Time COLONOSCOPY, DIAGNOSTIC 10 yr f/up documented as of this encounter Procedures Procedure Name Priority Date/Time Associated Diagnosis Comme nts FILM LIBRARY Routine 09/04/2017 12:10 AM Results for this STORAGE ONLY EDT procedure are i n NUCLEAR MEDICINE the results section. documented in this encounter Results Film Library- Storage Only nuclear medicine (09/04/2017 12:10 AM EDT) Specimen (Source) Anatomical Location Collection Method / Collectio n Time Received Time / Laterality Volume Narrative RAD - 10/09/2017 12:59 PM EDT This exam is for storage only and is aut o-finalizing. Wesley Holder MD IMG FILM LIBRARY ORDERABLES Performing Organization Address City/State/ZIP Code Phon e Number [place], [place] documented in this encounter Visit Diagnoses Not on filedocumented in this encounter Care Teams Dieing Out Machine Operator Relationship Specialty Start Date End Date Clara Wood MD PCP - General Family Medicine 01/26/17 [address] [place] [address] documented as of this encounter
--- OUTSIDE RECORDS SUMMARY | 2021-12-30 01:33 | XMS_ITS | Encounter Summary ---
:1955 [place] [address] Care Team Providers Name Role Phone Clara Wood MD Primary Care Provider Encounter Details Date Type Department Care Team Description 08/06/2017 Hospital Encounter Radiology Library at [facility] [place] [facility] [place] [address] UROLOGY DEPT [phone] [place], [place] [address] (Wo rk) Social History Tobacco [...] Office Visit Radiation Oncology Clover Covarrubias APRN [facility] RADIATION ON[place]ENNIFER [place] [address] (Wo rk) 12/04/2022 Hospital Encounter Gastroenterology Real Jones MD [facility] GASTROENTEROLOGY DEPT. [place], [place] [address] (Wo rk) Scheduled Procedures Name Priority Associated Diagnoses Date/Time COLONOSCOPY, DIAGNOSTIC 10 yr f/up documented as of this encounter Procedures Procedure Name Priority Date/Time Associated Comments Diagnosis FILM LIBRARY STORAGE Routine 08/06/2017 12:00 AM Results for this ONLY ULTRASOUND EDT procedure ar e in STUDY the results section. documented in this encounter Results Film Library- Storage Only Ultrasound Study (08/06/2017 12:00 AM EDT) Specimen (Source) Anatomical Location Collection Method / Collectio n Time Received Time / Laterality Volume Narrative RAD - 10/09/2017 12:54 PM EDT This exam is for storage only and is aut o-finalizing. Wesley Holder MD IMG FILM LIBRARY ORDERABLES Performing Organization Address City/State/ZIP Code Phon e Number RAD [place], [place] documented in this encounter Visit Diagnoses Not on filedocumented in this encounter Care Teams Suit Attendant Relationship Specialty Start Date End Date Clara Wood MD PCP - General Family Medicine 01/26/17 [address] [place] [address] documented as of this encounter
--- OUTSIDE RECORDS SUMMARY | 2021-12-30 01:33 | XMS_ITS | Encounter Summary ---
:1955 Author Organization [facility] [place] [address] Care Team Providers Name Role Phone Clara Wood MD Primary Care Provider Reason for Visit Reason Comments Hiatal Hernia Encounter Details Date Type Department Care Team Description 01/26/2017 Office Visit Thoracic Surgery at [facility] Para esophageal hiatal [facility] MD Alexsandra hernia Count Includes [facility] [address] [place] Thoracic Surgery [id number] [place] [id number] [phone] Social History Tobacco Use Types Packs/Day Years [...] Sign Reading Time Taken Comments Blood Pressure 122/73 01/26/2017 9:29 AM EDT Pulse 69 01/26/2017 9:29 AM EDT Temperature 36.5 ??C (97.7 ??F) 01/26/2017 9:29 AM EDT Respiratory Rate 18 01/26/2017 9:29 AM EDT Oxygen Saturation 97% 01/26/2017 9:29 AM EDT Inhaled Oxygen Concentration - - Weight 93.4 kg (206 lb) 01/26/2017 9:29 AM EDT Height 175 cm (5' 8.9) 01/26/2017 9:29 AM EDT Body Mass Index 30.51 01/26/2017 9:29 AM EDT documented in this encounter Patient Instructions Patient InstructionsMarylou Sands RN - 01/26/2017 9:30 AM EDT In RVATS or robot-assisted video-assisted thoracic surgery, the surgeon controls the camera, light source and surgical tools from a console, with the same degree of flexibility and dexterity as if theywere held in the surgeon's hand. The tiny size of the instruments and the precision movement of the robotic arms allow the surgeon to operate in small and gapw-ij-ybati places in the chest cavity, and to move carefully around sensitive blood vessels, tissues and organs, enabling more difficult procedures to be performed with RVATS versus open surgery. A video-assisted thoracoscopic surgery, or VATS, involves a range of technologies to enable the removal of tissue through several small cuts in the chest. A tiny camera, light supply and surgical tools are inserted in the incisions and through the body to the surgical site. documented in this encounter Progress Notes [facility] MD - 01/26/2017 9:30 AM EDT Thoracic Surgery Attending Outpatient Consultation Note Al [facility]iz MD [place], [place] [address] FAX: ? Referring Provider: [place] [address] ? Reason for Consultation: Bleeding ulcer in setting of hiatal hernia ? Today, 01/26/2017, I saw ??Hosingloy back??in the Thoracic Surgery Clinic at [facility]??in consultationfor??a small to moderate Type 3 hiatal??hernia. He was last seen on 01/05/2017 and subsequently has undergone right carpal tunnel release. 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 He presents today with his . ?? As you know he??is a very pleasant 61 yrs-old male who has had??several episodes of melena over the last several [...] on 11/21/16 and was seen at the [facility] ED and discharged. He was seen again on 11/26 and again sent home. I don't have any records from these visits. He was again seen on 11/28 secondary to weakness and was transferred to [facility] for GI bleeding. Work up here included an EGD, see below.?He denies any history of??dysphagia. He??has not lost weight and food does not stick in his??lower chest. He denies??regurgitation, heartburn or water brash. ??He??is currently eating a regular??diet. ??He??notes a history of??reflux??for many years, but this seems to be asymptomatic. ??He??has had no??pneumonias. ??He??denies fevers, night sweats, chest pain.??He??has had no??prior treatments. ??On recent admission, hgb went from 14 to 11.8 and up to 13 without transfusion. His recent carpal tunnel release went well and was without complications. ?? Esophageal Manometry 12/19/16: FINDINGS ?LES (lower esophageal [...] pancreatic metaplasia. ??There is no evidence of intestinal??metaplasia and dysplasia. ? EGD and pathology reports from 08/2012 and 11/2012 here at [facility] also reviewed. Normal colonoscopy 11/2012 ? Sommer pH from 11/2012 at [facility]: Calculated DeMeester Score (normal values are up to 14.72) Day One Calculated DeMeester Score: 3.2 Day Two Calculated DeMeester Score: 2.1 Gxaqg-Awtfb-Ckhx DeMeester Score (Total): 2.7 During this recording period, the patient did not report any symptoms on his estimator and drafter. IMPRESSION During this recording period, while the patient was on 40 mg of Nexium twice daily, there was no evidence of pathologic acid reflux into the distal esophagus. ? CT C/A/P from OSH 11/26/16 reviewed-demonstrates hiatal hernia on my read. ? He??is able to walk an unlimited amount??per day and climb several??flights of stairs??without issue.??His??Zubrod score is??0 - Asymptomatic ? A 14-point review of systems is otherwise negative, except where noted above. ? He?has a past medical history of GERD (gastroesophageal reflux disease).? He?has a past surgical history that includes Colonoscopy, Diagnostic (14986) (12/04/2012); Upper Gi Endoscopy, Biopsy (93407) (12/04/2012); and Upper Gi Endoscopy, Biopsy (49272) (N/A, 11/29/2016). Right carpal tunnel release 2017? He??has a current medication list which includes the following prescription(s): pantoprazole.? He??has No Known Allergies. ? His??family history denies any significant esophageal pathology or cancer. ? A review of his??social history shows: ? Social History Substance Use Topics ??? Smoking status: Former Smoker ? Packs/day: 1.50 ? Years: 20.00 ? Quit date: 1981 ??? Smokeless tobacco: Never Used ??? Alcohol use Yes ? Comment: Rare ? On examination, ??Jovita??is a well nourished, well-developed male. ?He??is alert and oriented. ??BP 122/73 (Patient Position: Sitting) Pulse 69 Temp 36.5 ??C (97.7 ??F) (Temporal) Resp 18 Ht 175 cm (5' 8.9) Wt 93.4 kg (206 lb) SpO2 97% BMI 30.51 kg/m2 His??pulse is regular, breathing is unlabored and temperature is afebrile. ??In general he??is in no acute distress. ??His??pupils are reactive. ??His??sclera are anicteric. ??He??has no palpable cervical or supraclavicular adenopathy. ??The lung villaseñor are coarse to auscultation bilaterally. ??Heart rate and rhythm are normal. The abdomen is soft and nontender. ??No organs or masses are palpable. ??There is no peripheral edema, cyanosis, or clubbing of the extremities. ??Pulses are full and equal bilaterally. ??Neurologic examination is grossly intact. Musculoskelatal exam is grossly intact with 5/5 strength. ??His??skin is non-jaundiced. His right wrist in bandaged in a cast. ? In summary, ??Jovita??is a 61 year old male??with a small to moderate hiatal??hernia that is symptomatic with??recurrent bleeding ulceration and melena, most recently in November of 2016. He hashad no further episodes of bleeding since being restarted on his PPI.?He??does??have anemia, which is often associated with this problem. Today, we reviewed the results of his manometry confirming ahiatal hernia and also demonstrating 80% failed swallows. It is difficulty to know if this is related to his hiatal hernia or an intrinsic abnormality in the esophagus, or a combination of both. We discussed the surgical correction of this problem with a minimally invasive hiatal hernia repair and given the results of manometry a partial fundoplication. He has had numerous bleeding incidents over thelast decade and this is likely related to mechanical irritation of the stomach. He had a negative pHBravo test in 2012 at the time of one of these episodes, but was on a PPI at that time. ??I discussed his most recent EGD with Dr. 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 He is agreeable to surgery. ?? We reviewed the risks of a robotic paraesophageal hernia repair with likely Toupet fundoplication. In particular, we discussed perioperative risks including, but not limited to infection, bleeding, postoperative pain, need for reoperation, stricture, organ failure, cardiac dysrhythmia or other major ad verse cardiac event, stroke and . We also discussed the functional outcomes if the vagus nervesare injured including dumping syndrome, regurgitation, dysphagia and possible need for dilatation. He indicated his understanding and wishes to proceed as recommended. His surgery is tentatively scheduled for February 28. He will need preoperative labs and an EKG prior to surgery. ? In the meantime, if he??should have any further questions or concerns, he??should feel free to contact us. ? [facility] MD 01/26/2017 documented in this encounter Plan of Treatment Upcoming Encounters Date Type Specialty Care Team Description 01/19/2022 Office Visit Radiation Oncology Clover Covarrubias APRN [facility] RADIATION ONCJENNIFER [place]Y [place], [place] [address] (Wo rk) 12/04/2022 Hospital Encounter Gastroenterology Real Jones MD [facility] GASTROENTEROLOGY DEPT. [place], [place] [address] (Wo rk) Scheduled Procedures Name Priority Associated Diagnoses Date/Time COLONOSCOPY, DIAGNOSTIC 10 yr f/up documented as of this encounter Results EKG 12 Lead (01/29/2017 10:55 AM EST) Component Value Ref Range Test Analysis Performed Pathologis t Method Time At Signature Ventricular rate 54 BPM MUSE SYSTEM Atrial Rate 54 BPM MUSE SYSTEM P-R Interval 210 ms MUSE SYSTEM QRS Duration 90 ms MUSE SYSTEM Q-T Interval 438 ms MUSE SYSTEM QTC Calculated 415 ms MUSE SYSTEM (Bezet) Calculated P [place] 24 degrees MUSE SYSTEM Calculated R [place] 5 degrees MUSE SYSTEM Calculated T [place] 24 degrees MUSE SYSTEM INTERPRETATION Sinus bradycardia [...] City/State/ZIP Code Phon e Number MUSE SYSTEM Comprehensive metabolic panel (non-fasting) (01/29/2017 10:50 AM EST) P athologist Signature Glucose Lvl 87 65 - 199 [facility] mg/dL [facility] Comment: Diabetes: >=200 mg/dL plus symp toms BUN 15 10 - 20 mg/dL [facility] Creatinine 1.04 0.80 - 1.50 mg/dL [facility] Sodium 141 135 - 145 mmol/L [facility] Potassium 4.1 3.5 - 5.0 mmol/L [facility] Comment: Please note: ??Patients with WBC >100,00 0 may have falsely elevated Potassium levels. ??For accurate Potassium quantif ication in these patients send serum separator tube (gold top) for subsequent determinations. ??Contact the Clinical Chemistry Laboratory if there are any qu estions. Chloride 103 98 - 107 mmol/L [facility] CO2 26 22 - 31 mmol/L [facility] Anion Gap 12 5 - 15 mmol/L [facility] Calcium 9.2 8.5 - 10.5 mg/dL [facility] Total Protein 7.3 6.1 - 8.0 gm/dL [facility] Albumin 4.4 3.2 - 5.2 gm/dL [facility] AST 28 0 - 39 unit/L [facility] ALT 30 0 - 55 unit/L [facility] Alk Phos 55 40 - 120 unit/L [facility] Total Bilirubin 0.7 0.2 - 1.3 mg/dL [facility] Estimated GFR >60 >=60 [facility] Comment: The reported eGFR should be multiplied b y 1.2 for patients. The MDRD is not an appropriate measure o f renal function for patients with body mass extremes or in patients with acute kidney failure. http://Reglare.Sha-Sha/DHnkdep [email or web address]://Reglare.Sha-Sha/DHMCnkf Specimen Anatomical Collection Method Collection Time Receive d Time (Source) Location / / Volume Laterality Blood specimen 01/29/2017 10:50 7 (specimen) AM EST 11:06 AM EST Resulting Agency Comment Spec In Lab [facility] MD CHEMISTRY ORDERABLES Performing Organization Address City/State/[place] [address] documented in this encounter Visit Diagnoses Diagnosis Paraesophageal hiatal hernia Diaphragmatic hernia without mention of obstruction or gangrene documented in this encounter Care Teams Business Analytics Specialist Relationship Specialty Start Date End Date Clara Wood MD PCP - General Family Medicine 01/26/17 [address] [place] [address] documented as of this encounter
--- OUTSIDE RECORDS SUMMARY | 2021-12-30 01:33 | XMS_ITS | Encounter Summary ---
:1955 [place] [address] Care Team Providers Name Role Phone Clara [...] Expiration Date Visits Requ ested Visits Authorized [id number] 1 1 Encounter Details Date Type Department Care Team Description 02/28/2017 Surgery Main Operating Room Al Servin R OBOT XI LAPAROSCOPIC Letha Frausto MD PARAESOPHAGEAL HERNIA [facility] REPAIR W/FUNDOPLASTY,W/O [facility] Dr JUAREZ (WRVU 26.6) Drive [place] [address] [place] [address] [phone] (Wo rk) Social History Tobacco Use Types [...] Primary * Howard Escamilla PA - Physician Airplane Gastank Liner Assembler * Yary Forbes PA - Physician Airplane Gastank Liner Assembler Procedure: Procedure(s) with comments: ROBOT XI LAPAROSCOPIC PARAESOPHAGEAL HERNIA REPAIR W/FUNDOPLASTY,W/O MESH (WRVU 26.6) - EGD, roboticparaesophageal hernia repair Have both diagnostic bronchoscope and EGD scope available. TT MODIFIER ROBOT,KEVINI XI EGD, UPPER GI ENDOSCOPY History of Presentation: Amanuel Hussein is a 61 y.o. male with a small to moderate hiatal??hernia that is symptomatic with??recurrent bleeding ulceration and melena Hospital Course: Amanuel Hussein was admitted to [facility] on 02/28/2017via the Same Day Program. He [...] a nurse in the Thoracic Clinic at [phone]. After hours or on weekends or holidays please call: [phone] and ask to speak to the Thoracic Surgeon air transportation provider. Exercise & Activity Level: As you recover [...] the Thoracic Clinic or the Thoracic Surgeon air transportation provider after hours. Sleep: Try to establish normal [...] Time Provider Department Center 03/01/2017 1:00 PM [facility] DX ROOM 8 Xray Leb Rad Clin Provider Contact Information: Primary Care Provider: Clara Wood MD [phone] Discharge References/Attachments: Discharge References/Attachments None For questions [...] a nurse in the Thoracic Clinic at [phone]. After hours or on weekends or holidays please call: [phone] and ask to speak to the Thoracic Surgeon air transportation provider. Exercise & Activity Level: As you recover [...] the Thoracic Clinic or the Thoracic Surgeon air transportation provider after hours. Sleep: Try to establish normal [...] Time Provider Department Center 03/01/2017 1:00 PM [facility] DX ROOM 8 Xray [facility] Rad Clin documented in this encounter Progress Notes Isis Marquez RN - 03/01/2017 5:39 PM EST Patient Name: Amanuel Hussein Patient Age: 61 y.o. Birthdate: 1955 Admit date: 02/28/2017 Attending Physician: Al Servin MD Pt discharged home with no services. Discharge instructions provided, pt and verbalized understanding. Aware of when to call MD and future appointments. IVs d/c'd. Pt walked off unit with his . [...] 01/29/17 94.1 kg (207 lb 6.4 oz) 11/03/17 93.4 kg (206 lb) Body mass index [...] up appointment in 2 weeks. Pt understood. Physical Therapist emphasized the importance of no carbonated beverages and no s traw use and why. Pt understood. Physical Therapist and pt discussed both diets and foods/ [...] SOB, abdominal pain. Pain well controlled with CAR FERRIER, offers no complaints O: Temp: [36.2 ??C [...] recovering well - pain well controlled with CAR FERRIER - hemodynamically stable - UOP adequate, has [...] DIAGNOSTIC performed by Real Jones MD at [facility] ENDOSCOPY ??? PRO UPPER GI ENDOSCOPY, BIOPSY 12/04/2012 UPPER GASTROINTESTINAL ENDOSCOPY,WITH BIOPSY SINGLE OR MULTIPLE performed by Real Jones MD at [facility] ENDOSCOPY ??? PRO UPPER GI ENDOSCOPY, BIOPSY N/A 11/29/2016 UPPER GASTROINTESTINAL ENDOSCOPY,WITH BIOPSY SINGLE OR MULTIPLE (WRVU 2.49) performed by Kaiser Doyle MD at [facility] ENDOSCOPY MEDS: No current facility-administered medications on [...] reports from 08/2012 and 11/2012 here at [facility] also reviewed. Normal colonoscopy 11/2012 ? Sommer pH from 11/2012 at [facility]: Calculated DeMeester Score (normal values are up to 14.72) Day One Calculated DeMeester Score: 3.2 Day Two Calculated DeMeester Score: 2.1 Wrdxm-Xvcnq-Pspm DeMeester Score (Total): 2.7 During this recording period, the patient did not report any symptoms on his rock duster. IMPRESSION During this recording period, while the patient was on 40 mg of Nexium twice daily, there was no evidence of pathologic acid reflux into the distal esophagus. ? CT C/A/P from OSH 11/26/16 reviewed-demonstrates hiatal hernia on my read. ?? EKG (01/29/17): Sinus bradycardia with 1st degree A-V block Borderline criteria for Inferior infarct (cited on or before 28-NOV-2016) Abnormal ECG MED/CARD CLEARANCE/MIBI/VQ SCAN FILM ON PACS: CONSENT: Yes/EMR - Yes Assessment/Plan: Amanuel Hussein is a 61 y.o. male presenting today for planned Esophagoscopy, Laparoscopic, robot assisted repair of paraesophageal hernia with partial fundoplication due to symptomatic paraesophageal hernia. Consent signed and confirmed in chart. Questions addressed. Will proceedwith planned surgery. MAMADOU Escobedo 02/28/2017 Thoracic Surgery Service Pager [phone] documented in this encounter Miscellaneous Notes Plan [...] the unit with mild increased pain. The CAR FERRIER was discontinued, pain controlled with tylenol. Voiding [...] Bed/bath second floor. Drive. 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 [address] [place] [address] Social & Family Supports/Community Resources: Nata Extended Emergency Contact Information Primary Emergency Contact: Nata Hussein Address: [address] [place] [address] Mobile Relation: Spouse Behavioral Health History: Denies Substance Use/Abuse: Denies smoking, alcohol use, and/or illicit drug use Other Pertinent/Service Specific Information: None Health/Prescription Coverage: Payor: GLORIA MARTIN / Plan: CASTRO POINT / Product Type: *No Product type* / Secondary Insurance: None Prescription Coverage: see above Preferred Pharmacy: Please use [facility] [address] [place] [address] - [facility] [address] [facility] [phone] [facility] [address] Other: None Primary Care Provider: Dr. Zeynep MD [phone] Patient/Caregiver Goals of Treatment: Discharge home after swallow study completed. Potential Needs for Transition of Care: Rehab/SNF: NA Home Health: NA DME: NA Dialysis: NA Community Resources: pt is aware Transportation: /Sister, [place] Other: None Anticipated Barriers to Discharge/Special Considerations: No barriers anticipated. Plan: CM will maintain contact with patient & providers to coordinate any services needed for discharge. Mikayla Page pool installer Pager [phone] Plan of Care - Rolanod Chaparro RN - 03/01/2017 4:35 AM EST [...] Operative Note Patient Name: Amanuel Hussein : [id number] MR#: [id number] Case Date: 02/28/2017 Surgeon: Surgeon(s) and Role: * Al Servin MD - Primary * oHward Escamilla PA - Physician Airplane Gastank Liner Assembler * Yary Forbes PA - Physician Airplane Gastank Liner Assembler Preoperative diagnosis: hiatal hernia with history of bleeding Postoperative diagnosis: sliding hiatal hernia Procedure(s) (LRB): ROBOT XI LAPAROSCOPIC PARAESOPHAGEAL HERNIA REPAIR W/FUNDOPLASTY,W/O MESH (WRVU 26.6) (N/A) MODIFIER RIYA ZHENG XI (N/A) EGD, UPPER GI ENDOSCOPY (N/A) [...] Servin MD - 02/28/2017 12:11 PM EST [facility] Operative Note Patient Name: Amanuel Hussein : [id number] MR#: [id number] Case Date: 02/28/2017 Surgeon: Surgeon(s) and Role: * Al Servin MD - Primary * Howard Escamilla PA - Physician Airplane Gastank Liner Assembler * Yary Forbes PA - Physician Airplane Gastank Liner Assembler Preoperative diagnosis: hiatal hernia with history of [...] with??recurrent bleeding ulceration and melena, most recently inSeptember of 2016. He has had no further [...] the liver retractor and a 12 mm healthcare administrative assistant port was placed in the right [...] dissected at the GE junction. A half-inch [place] drain was placed around the distal esophagus and proximal stomach and this was retracted inferiorly. The distal esophagus was circumferentially dissected up into the mediastinum. Care was taken to avoid any injury to the anterior or posterior vagus nerves. Attention was taken off the [place] drain and there was approximately 3.5 to [...] in the supine position. The 12 mm healthcare administrative assistant incision port was removed and the fascia was closed using the Sae-Yordy device with a 2-0 Vicryl suture. A final inspection of the abdomen demonstrated no evidence of any ongoing bleeding. The ports were removed under direct vision following desufflation of the abdomen. The 5 and 8 mm port sites were closed with 4-0 Monocryl. The healthcare administrative assistant port incision was also closed with [...] procedure. I was assisted by Anton Palacios [facility], as no qualified resident was available. Infection Bundle used? See Brief Op note Al Servin MD 02/28/2017 documented in this encounter Plan of Treatment Upcoming Encounters Date Type Specialty Care Team Description 01/19/2022 Office Visit Radiation Oncology Clover Covarrubias, [facility] RADIATION ONCJENNIFER [place], [place] [address] (Wo rk) 12/04/2022 Hospital Encounter Gastroenterology Real Jones MD [facility] GASTROENTEROLOGY DEPT. [place] 0[address] (Wo rk) Scheduled Procedures Name Priority Associated Diagnoses Date/Time COLONOSCOPY, DIAGNOSTIC 10 yr f/up documented as of this encounter Procedures Procedure Name Priority Date/Time Associated Diagnosis Comme nts TANK DRIVER SCAN 03/02/2017 12:00 Res ults for this [...] section. TYPE AND SCREEN Routine 02/28/2017 7:52 ([facility]/JORDANA/[facility]OOK) AM EST EGD, UPPER GI Yes 02/28/2017 [...] original. EXAMINATION: XR CHEST PA AND LATERAL (Askuity) CLINICAL HISTORY: s/p robotic-assisted l ap paraesophageal [...] Servin MD IMG DX ORDERABLES SCAN DOC: TANK DRIVER (03/02/2017 12:00 AM EST) Narrative 03/02/2017 12:00 [...] wrap. Evaluate for leak. TECHNIQUE: An upright automation control integrator radiograph was obtained . Single contrast esophagram [...] radiograph 02/28/2017. Preoperative barium swallow 12/08/2016 FINDINGS: Caustic Cresylate Shift Superintendent radiograph: There are streaky opacities at the [...] wrap. Evaluate for leak. TECHNIQUE: An upright automation control integrator radiograph was obtained . Single contrast esophagram [...] radiograph 02/28/2017. Preoperative barium swallow 12/08/2016 FINDINGS: Caustic Cresylate Shift Superintendent radiograph: There are streaky opacities at the [...] Metabolic Panel (non-fasting) (03/01/2017 4:55 AM EST) athologist Signature Glucose Lvl 116 65 - 199 [facility] mg/dL [facility] Comment: Diabetes: >=200 mg/dL plus symp toms BUN 14 10 - 20 mg/dL [facility] Creatinine 0.87 0.80 - 1.50 mg/dL [facility] Sodium 138 135 - 145 mmol/L [facility] Potassium 3.8 3.5 - 5.0 mmol/L [facility] Comment: Please note: ??Patients with WBC >100,00 0 may have falsely elevated Potassium levels. ??For accurate Potassium quantif ication in these patients send serum separator tube (gold top) for subsequent determinations. ??Contact the Clinical Chemistry Laboratory if there are any qu estions. Chloride 103 98 - 107 mmol/L [facility] CO2 25 22 - 31 mmol/L [facility] Anion Gap 10 5 - 15 mmol/L [facility] Calcium 7.9 (L) 8.5 - 10.5 mg/dL [facility] Estimated GFR >60 >=60 [facility] Comment: The reported eGFR should be multiplied b y 1.2 for patients. The MDRD is not an appropriate measure o f renal function for patients with body mass extremes or in patients with acute kidney failure. http://[employer].Highlight/DHnkdep http://Vuze/DHMCnkf Specimen Anatomical Collection Method Collection Time Receive d Time (Source) Location / / Volume Laterality Blood specimen 03/01/2017 4:55 AM 017 5:18 (specimen) EST AM EST Resulting Agency Comment Spec In Lab Al Servin MD CHEMISTRY ORDERABLES Performing Organization Address City/State/[place] [address] (ABNORMAL) Hemogram (03/01/2017 4:55 AM EST) Analysis Performed At Patho logist Time Signature WBC 9.4 4.0 - 9.5 [facility] x[facility](3[facility] LABORATORY RBC 3.92 (L) 4.58 - LETHA MIGUELINA 5.54 [facility]IAL x10(6)/[facility] LABORATORY Hemoglobin 12.6 (L) 13.7 - [facility] 16.5 gm/dL [facility] Hematocrit 36.7 (L) 40.5 - [facility] 48.5 % [facility] MCV 93.6 (H) 82.9 - [facility] 93.1 [facility] LABORATORY MCH 32.1 27.5 - [place] MIGUELINA 32.1 pg [facility] MCHC 34.3 32.0 - [place] MIGUELINA 35.7 gm/dL [facility] Platelets 192 145 - 357 [facility] x10(3)/[facility] LABORATORY RDWSD 41.9 36.0 - [place] MIGUELINA 45.0 [facility] LABORATORY RDWCV 12.2 11.4 - [place] MIGUELINA 13.8 % [facility] MPV 9.0 7.6 - 12.9 [facility] LABORATORY nRBC % Auto 0.0 % [facility] nRBC Abs Auto 0.000 0.000 - [place] MIGUELINA 0.000 [facility] x10(3)/[facility] LABORATORY Specimen Anatomical Collection Method Collection Time Receive d Time (Source) Location / / Volume Laterality Blood specimen 03/01/2017 4:55 AM 017 5:18 (specimen) EST AM EST Resulting Agency Comment Spec In Lab Al Servin MD HEMATOLOGY ORDERABLES Performing Organization Address City/State/[place] [address] XR Chest PA or [...] (ABNORMAL) Differential, Automated (02/28/2017 12:19 PM EST) [facility] Method Time Signature Neutrophils % 90.3 % [facility] Neutr Abs (ANC) 10.11 (H) 1.70 - [facility] 6.10 [facility] x10(3)/[facility] LABORATORY Lymphocytes % 5.0 % [facility] Lymphocytes Abs 0.6 (L) 0.9 - 3.2 [facility] x10(3)/[facility] LABORATORY Monocytes % 3.3 % [facility] Monocyte Abs 0.4 0.3 - 0.9 [facility] x10(3)/[facility] LABORATORY Eosinophils % 0.1 % [facility] Eosinophils Abs 0.0 0.0 - 0.4 [facility] x10(3)/[facility] LABORATORY Basophils % 0.3 % [facility] Basophils Abs 0.0 0.0 - 0.1 [facility] x10(3)/[facility] LABORATORY Immature Gran % 1.00 % [facility] Comment: Immature granulocytes(IG's)percentage an d absolute count will include metamyelocytes, myelocytes, and promyelo cytes. Blood smears from CBCs yielding IG's will be scanned manually for concor dance. If this scan disagrees with the automated IG or if promyelocytes are not ed, a manual differential will be performed. Malika Gran Abs 0.11 (H) 0.00 - 0.04 x10(3)/[facility] LABORATORY Specimen Anatomical Collection Method Collection Time Receive d Time (Source) Location / / Volume Laterality Blood specimen 02/28/2017 12:19 7 (specimen) PM EST 12:25 PM EST Resulting Agency Comment Spec In Lab Al Servin MD HEMATOLOGY ORDERABLES Performing Organization Address City/State/[place] [address] (ABNORMAL) Hemogram (02/28/2017 12:19 PM EST) Analysis Performed At Patho logist Time Signature WBC 11.2 (H) 4.0 - 9.5 [facility] x10(3)/[facility] LABORATORY RBC 4.18 (L) 4.58 - [facility] 5.54 [facility] x10(6)/[facility] LABORATORY Hemoglobin 13.6 (L) 13.7 - [facility] MIGUELINA 16.5 gm/dL [facility] Hematocrit 38.9 (L) 40.5 - [facility]OCK 48.5 % [facility] MCV 93.1 82.9 - [place] [facility]OCK 93.1 [facility] LABORATORY MCH 32.5 (H) 27.5 - [facility] 32.1 pg [facility] MCHC 35.0 32.0 - [place] [place] 35.7 gm/dL [facility] Platelets 197 145 - 357 [facility] x10(3)/[facility] LABORATORY RDWSD 41.7 36.0 - [place] [place]OCK 45.0 [facility] LABORATORY RDWCV 12.2 11.4 - [facility] MIGUELINA 13.8 % [facility] MPV 8.6 7.6 - 12.9 [facility] LABORATORY nRBC % Auto 0.0 % [facility] nRBC Abs Auto 0.000 0.000 - [place] MIGUELINA 0.000 [facility] x10(3)/[facility] LABORATORY Specimen Anatomical Collection Method Collection Time Receive d Time (Source) Location / / Volume Laterality Blood specimen 02/28/2017 12:19 7 (specimen) PM EST 12:25 PM EST Resulting Agency Comment Spec In Lab Al Servin MD HEMATOLOGY ORDERABLES Performing Organization Address City/State/ZIP Code Phon e Number [place] [id number] [address]OS[address] LAB[address] Creatinine (02/28/2017 12:19 PM EST) P athologist Signature Creatinine 0.88 0.80 - [place] MIGUELINA 1.50 mg/dL [facility] Estimated GFR >60 >=60 [facility] Comment: The reported eGFR should be multiplied b y 1.2 for patients. The MDRD is not an appropriate measure o f renal function for patients with body mass extremes or in patients with acute kidney failure. http://[employer].Highlight/DHnkdep http://[employer].Highlight/DHMCnkf Specimen Anatomical Collection Method Collection Time Receive d Time (Source) Location / / Volume Laterality Blood specimen 02/28/2017 12:19 7 (specimen) PM EST 12:25 PM EST Resulting Agency Comment Spec In Lab Al Servin MD CHEMISTRY ORDERABLES Performing Organization Address City/State/[place] [address] BUN (02/28/2017 12:19 PM EST) P athologist Signature BUN 12 10 - 20 [facility] mg/dL [facility] Specimen Anatomical Collection Method Collection Time Receive d Time (Source) Location / / Volume Laterality Blood specimen 02/28/2017 12:19 7 (specimen) PM EST 12:25 PM EST Resulting Agency Comment Spec In Lab Al Servin MD CHEMISTRY ORDERABLES Performing Organization Address City/[facility]/[place] [address] Electrolytes panel (02/28/2017 12:19 PM EST) P athologist Signature Sodium 140 135 - 145 [facility] mmol/L [facility] Potassium 3.8 3.5 - 5.0 [facility] mmol/L [facility] Comment: Please note: ??Patients with [...] mmol/L [facility] Anion Gap 11 5 - 15 mmol/L [facility] Specimen Anatomical Collection Method Collection Time Receive d Time (Source) Location / / Volume Laterality Blood specimen 02/28/2017 12:19 7 (specimen) PM EST 12:25 PM EST Resulting Agency Comment Spec In Lab Al Servin MD CHEMISTRY ORDERABLES Performing Organization Address City/[facility]/[place] [address] (ABNORMAL) BLOOD GAS 2 ARTERIAL (02/28/2017 11:04 AM EST) Analysis Performed At Patho logist Time Signature pH Art 7.34 (L) 7.35 - [facility] 7.45 [facility] pCO2 Art 45 35 - 45 [facility] pO2 Art 194 (H) 85 - 104 [facility] HCO3 Art 23.4 20.0 - [facility] 26.0 [facility] mmol/L [facility]OR[facility] BE Art -2.4 -3.0 - 3.0 [facility] mmol/L [facility] Hgb Blood Gas 14.1 13.7 - [facility] 16.5 gm/dL [facility] O2HB Art 98.2 (H) 94.0 - [facility] 97.0 % [facility] COHB Art 0.7 % [facility] Comment: Nonsmokers: 0.5-1.5% COHB Smokers: Variable, but usually less than 10% Toxic: 20-30% COHB Lethal: Greater than 60% COHB METHB Art 0.3 <=1.5 % [facility] Na Whole Blood 136 135 - 145 mmol/L [facility] K Whole Blood 4.1 3.5 - 5.0 mmol/L [facility] Comment: Please note: Patients with WBC >100,000 may have falsely elevated Potassium levels. Contact the Clinical Chemistry L aboratory if there are any questions. ICa Whole Blood 1.13 (L) 1.15 - 1.33 mmol/L [facility] Comment: Note: ??Total bilirubin higher than 20 m g/dL may lead to falsely low ionized calcium. CL Whole Blood 105 98 - 107 mmol/L [facility] Gluc Whole Bld 161 65 - 199 mg/dL [facility] Comment: Diabetes: >=200 mg/dL plus symp toms. Lactate WB 2.1 0.5 - 2.2 mmol/L [facility] Specimen Anatomical Collection Method Collection Time Receive d Time (Source) Location / / Volume Laterality Blood specimen 02/28/2017 11:04 7 (specimen) AM EST 11:04 AM EST Al Servin MD CHEMISTRY ORDERABLES Performing Organization Address City/State/ZIP Code Phon e Number [place] [phone] HOSPITAL LAB[address]ORY Drive Surgical Pathology Report (02/28/2017 9:57 AM EST) Component Value Ref Test Analysis Performed At [facility] gist Range Method Time Signature Surgical [id number] ? Location: [facility]; [facility]; A [facility] Report The signing pathologist has (i) examined the relevant preparation(s) for the [facility] specimen(s) and (ii) rendered or confirmed the diagnosis(es) . HOSPITAL LABORATORY . ?Surgic al Pathology DIAGNOSIS Gastroesophageal fat pad, biopsy: Benign fibroadipose tissue with one reactive lymph node. Electronically signed by: ??Louisa Gee MD Verified: ??03/05/2017 ?Pathologist Performed at: ??-[facility] Dept. of Pathology, [place], [place] CLINICAL INFORMATION Specimen Submitted: A - [...] rou ghened surface is inked black. A registration representative section is submitted. (R1) ??cf Specimen (Source) Anatomical Collection Method Collection Time Re ceived Time Location / / Volume Laterality 02/28/2017 9:57 AM EST Al Servin MD PATHOLOGY/CYTOLOGY ORDERABLE S Performing Organization Address City/State/ZIP Code Phon e Number [address] Specimen to Pathology (surgical or derm) (02/28/2017 9:57 AM EST) Specimen Anatomical Collection Method Collection Time Receive d Time (Source) Location / / Volume Laterality AP Specimen 02/28/2017 9:57 AM 7 9:57 EST AM EST Narrative [facility] - 02/28/2017 9:57 AM EST Specimen requisition ordered. ??Separate Pathology report to follow Al Servin MD PATHOLOGY/CYTOLOGY ORDERABLE S Performing Organization Address City/State/[place] [address] (ABNORMAL) BLOOD GAS 2 ARTERIAL (02/28/2017 9:21 AM EST) Analysis Performed At Patho logist Time Signature pH Art 7.31 (L) 7.35 - [facility] 7.45 [facility] pCO2 Art 48 (H) 35 - 45 [facility] pO2 Art 182 (H) 85 - 104 [facility] HCO3 Art 23.4 20.0 - [facility] CENTER 26.0 [facility] mmol/L [facility] BE Art -2.9 -3.0 - 3.0 [facility] mmol/L [facility] Hgb Blood Gas 13.4 (L) 13.7 - [facility] 16.5 gm/dL [facility] O2HB Art 98.3 (H) 94.0 - [facility] 97.0 % [facility] COHB Art 0.4 % [facility] Comment: Nonsmokers: 0.5-1.5% COHB Smokers: Variable, but usually less than 10% Toxic: 20-30% COHB Lethal: Greater than 60% COHB METHB Art 0.3 <=1.5 % [facility] Na Whole Blood 139 135 - 145 mmol/L [facility] K Whole Blood 4.2 3.5 - 5.0 mmol/L [facility] Comment: Please note: Patients with WBC >100,000 may have falsely elevated Potassium levels. Contact the Clinical Chemistry L aboratory if there are any questions. ICa Whole Blood 1.15 (L) 1.15 - 1.33 mmol/L [facility] Comment: Note: ??Total bilirubin higher than 20 m g/dL may lead to falsely low ionized calcium. CL Whole Blood 105 98 - 107 mmol/L [facility] Gluc Whole Bld 155 65 - 199 mg/dL [facility] Comment: Diabetes: >=200 mg/dL plus symp toms. Lactate WB 2.3 (H) 0.5 - 2.2 mmol/L [facility] Specimen Anatomical Collection Method Collection Time Receive d Time (Source) Location / / Volume Laterality Blood specimen 02/28/2017 9:21 AM 017 9:21 (specimen) EST AM EST Al Servin MD CHEMISTRY ORDERABLES Performing Organization Address City/[facility]/ZIP Code Phon e Number [address] Prepare RBC (02/28/2017 9:05 AM EST) P athologist Signature Dispensed? Yes [facility] Specimen Anatomical Collection Method Collection Time Receive d Time (Source) Location / / Volume Laterality Blood specimen 02/28/2017 9:05 AM 017 9:02 (specimen) EST AM EST Resulting Agency Comment Spec In Lab Al Servin MD BLOOD BANK ORDERABLES Performing Organization Address City/[facility]/ZIP Code Phon e Number [address] ABORH Recheck Status (02/28/2017 7:52 AM EST) [facility] gist Method Time Signature ABORH Recheck Order Placed [facility] LABORATORY ABORH Type Complete [facility] LABORATORY Specimen Anatomical Collection Method Collection Time Receive d Time (Source) Location / / Volume Laterality Blood specimen 02/28/2017 7:52 AM 017 8:38 (specimen) EST AM EST Resulting Agency Comment Spec In Lab Al Servin MD BLOOD BANK ORDERABLES Performing Organization Address City/[facility]/ZIP Code Phon e Number [address] Antibody screen (02/28/2017 7:52 AM EST) [facility] gist Method Time Signature Ab Screen [facility] LABORATORY Expires at 03/03/2017 LETHA FRAUSTO 2359 on: [facility] Specimen Anatomical Collection Method Collection Time Receive d Time (Source) Location / / Volume Laterality Blood specimen 02/28/2017 7:52 AM 017 8:38 (specimen) EST AM EST Resulting Agency Comment Spec In Lab Al Servin MD BLOOD BANK ORDERABLES Performing Organization Address City/[facility]/[place] [address] ABO/Rh Typing (02/28/2017 7:52 AM EST) P athologist Signature ABORh Type B Pos [facility] Specimen Anatomical Collection Method Collection Time Receive d Time (Source) Location / / Volume Laterality Blood specimen 02/28/2017 7:52 AM 017 8:38 (specimen) EST AM EST Resulting Agency Comment Spec In Lab Al Servin MD BLOOD BANK ORDERABLES Performing Organization Address City/[facility]/[place] [address] POCT Glucose (02/28/2017 6:28 AM EST) P athologist Signature POC Glucose 98 65 - 199 [facility] mg/dL [facility] Comment: Supplemental ranges: <140 mg/dL before meals <180 mg/dL all other times of the day Specimen Anatomical Collection Method Collection Time Receive d Time (Source) Location / / Volume Laterality Blood specimen 02/28/2017 6:28 AM 017 6:28 (specimen) EST AM EST Al Servin MD POINT OF CARE TEST ORDERABLE S Performing Organization Address City/[facility]/[place] [address] documented in this encounter [...] Given 03/01/2017 6:44 AM EST 1,000 mg BUpivacaine (PF) (MARCAINE) Given 02/28/2017 8:36 AM EST 15 mLs 19- Surgical Site 0.5 % (5 mg/mL) injection ONCE PRN, Starting on Sun02/28/17 at 0836, Until Claudia 03/01/17 at 2037, Intra-Operative (Intra-Procedure), Routine enoxaparin (LOVENOX) injection 40 mg Given 02/28/2017 8:33 PM EST 40 mg 40 mg, Subcutaneous, NIGHTLY, First dose on Sun02/28/17 at 2100, Until Discontinued, Routine lactated Ringers infusion New Bag 03/01/2017 9:57 AM EST 100 mL/hr 100 mL/hr 100 mL/hr, Intravenous, CONTINUOUS, Starting on Sun02/28/17 at 1245, Until Claudia 03/01/17 at 2037, Recovery (Recovery-Hospital Unit) New Bag 02/28/2017 11:56 PM EST 100 mL/hr 100 mL/hr Continued Bag 02/28/2017 2:24 PM EST 100 mL/hr 100 mL/hr lidocaine (XYLOCAINE) 10 mg/mL (1 %) inj ection 3 mg 3 mg (0.3 mL), Subcutaneous, ONCE PRN, 1 dose, Startin g on Sun02/28/17 at 1428, Until Claudia 03/01/17 at 2037, for discomfort with PIV ins ertion, Recovery (Recovery-Hospital Unit), Routine lidocaine (XYLOCAINE) 10 mg/mL Given 02/28/2017 8:36 AM EST 15 m Ls 19- Surgical Site (1 %) injection ONCE PRN, Starting on Sun02/28/17 at 0836, Until Claudia 03/01/17 at 2037, Intra-Operative (Intra-Procedure), Routine oxyCODONE (ROXICODONE) 5 mg/5 mL solutio n 5 mg 5 mg, Oral, EVERY 4 HOURS PRN, Starting on Claudia 03/01/17 at 0744, Until Sun03/01/17 at 2038, Pain, Routine pantoprazole (PROTONIX) injection 40 mg [...] S tarting on Sun02/28/17 at 1428, Until Claudia 03/01/17 at 2037, flush, Flush pertains t o all indwelling [...] Provider: Marcos Andino MD) 5,000 Units, Subcutaneous, WINDOW/DISTRIBUTION CLERK TO O. R., 1 dose, Sun02/28/17 at 0645, Routine iohexol (OMNIPAQUE) 300 mg/mL solution 50 mL (COMPLETED) 1415 (Given - Provider: Britany Orantes - Comment: omni [id number] sep 06 2019) 50 mL, Oral, ONCE, 1 dose, Sun03/01/17 a t 1415, Warning Vesicant/Irritant Medication , Routine pantoprazole (PROTONIX) injection 40 mg 1706 (Given - Provider: Isis Marquez RN) 0833 (Given - Provider: Isis Marquez RN) 40 mg, Intravenous, DAILY, First dose on Sun02/28/17 at 1700, Until Discontinued senna (SENOKOT) tablet 17.2 mg 1 703 (Given - Provider: Isis Marquez RN) 17.2 mg, Oral, EVERY EVENING, First dose on Sun03/01/17 at 1700, Until Discontinued, Routine sodium chloride 0.9 % flush 5 mL 1429 (G iven - Provider: Isis Marquez RN)2034 (Not Given - Provider: Rolando Chaparro RN - Reason: See comment - Comment: infusing, no sx of infiltration.) 0833 (Given - Provider: Isis Marquez, ANA) 5 mL, Intravenous, 2 TIMES DAILY, First dose on Sun02/28/17 at 1445, Until Discontinued, Recovery (Recovery-Hospital Unit), Routine Continuous Medication Order 02/27/2017 02/28/2017 03/01/2017 HYDROmorphone (DILAUDID) 1 mg/mL CAR FERRIER 50 mL (CANCELED) 1535 (New Syringe/Cartridge - Provider: Isis Marquez, ANA) 0900 (Stopped - Provider: Isis Marquez, RN) Intravenous, CAR FERRIER ONLY, Starting Sun02/28/17 at 1515, Until T hu 03/01/17 at 0743 lactated Ringers infusion 1424 (Continue d Bag - Provider: Robina Lemus RN)2356 (New Bag - Provider: Rolando Chaparro, ANA) 0957 (New Bag - Provider: Isis Marquez, ANA) 100 mL/hr, at 100 mL/hr, Intravenous, CO NTINUOUS, Starting Sun02/28/17 at 1245, Until Claudia 03/01/17 at 2038, Recovery (Recovery-Hospital Unit) PRN Medication Order 02/27/2017 02/28/2017 03/01/2017 BUpivacaine (PF) (MARCAINE) 0.5 % (5 mg/mL) injection (CANCE LED) 0836 (Given - Provider: Al Servin MD) ONCE PRN, Starting Sun02/28/17 at 0836, Until Claudia 03/01/17 at 2038, Intra- Operative (Intra-Procedure), Routine lidocaine (XYLOCAINE) 10 mg/mL (1 %) injection 3 mg 3 mg (0.3 mL), Subcutaneous, ONCE PRN, 1 dose, Starting Sun02/28/17 at 1428, Until Claudia 03/01/17 at 2038, for discomfort with PIV insertion, Recovery (Recovery-Hospital Unit), Routine lidocaine (XYLOCAINE) 10 mg/mL (1 %) injection (CANCELED) 0836 (Given - Provider: Al Servin MD) ONCE PRN, Starting Sun02/28/17 at 0836, Until Claudia 03/01/17 at 2038, Intra- Operative (Intra-Procedure), Routine oxyCODONE (ROXICODONE) 5 [...] Routine documented in this encounter Care Teams Customer Contact Sales Associate Relationship Specialty Start Date End Date Clara Wood MD PCP - General Family Medicine 01/26/17 E[address] [place] [address] documented as of this encounter
--- OUTSIDE RECORDS SUMMARY | 2021-12-30 01:33 | XMS_ITS | Encounter Summary ---
:1955 [place] [address] Care Team Providers Name Role Phone Clara Wood MD Primary Care Provider Encounter Details Date Type Department Care Team Description 09/04/2017 Hospital Encounter Radiology Library at [facility] [place] [facility] [place] [address] UROLOGY DEPT [phone] [place], [place] [address] (Wo rk) Social History Tobacco [...] Office Visit Radiation Oncology Clover Covarrubias APRN [facility] RADIATION ONCJENNIFER [place], [place] [address] (Wo rk) 12/04/2022 Hospital Encounter Gastroenterology Real Jones MD [facility] GASTROENTEROLOGY DEPT. [place], [place] [address] (Wo rk) Scheduled Procedures Name Priority Associated Diagnoses Date/Time COLONOSCOPY, DIAGNOSTIC 10 yr f/up documented as of this encounter Procedures Procedure Name Priority Date/Time Associated Diagnosis Comme nts FILM LIBRARY Routine 09/04/2017 12:05 AM Results for this STORAGE ONLY MR EDT procedure ar e in PELVIS the results section. documented in this encounter Results Film Library- Storage Only MR Pelvis (09/04/2017 12:05 AM EDT) Specimen (Source) Anatomical Location Collection Method / Collectio n Time Received Time / Laterality Volume Narrative RAD - 10/09/2017 12:56 PM EDT This exam is for storage only and is aut o-finalizing. Wesley Holder MD G FILM LIBRARY ORDERABLES Performing Organization Address City/State/ZIP Code Phon e Number [place], [place] documented in this encounter Visit Diagnoses Not on filedocumented in this encounter Care Teams Integration Aide Relationship Specialty Start Date End Date Clara Wood MD PCP - General Family Medicine 01/26/17 Ebony [address] [place] [address] documented as of this encounter
--- OUTSIDE RECORDS SUMMARY | 2021-12-30 01:33 | XMS_ITS | Encounter Summary ---
:1955 Author Organization [facility] [place] [address] Care Team Providers Name Role Phone Marin Patton MD Primary Care Provider Encounter Details Date Type Department Care Team Description 12/08/2016 Hospital Encounter XRay at [facility] Gastrointestinal [address] [place] [address] hemorrhage, unspecified [place], [place] gastro[place]est[place] [id number] hemorrhage type [phone] Social History Tobacco Use Types Packs/Day Years [...] Clover Covarrubias APRN [facility] RADIATION ONCJENNIFER GY [place], [place] [address] (Wo rk) 12/04/2022 Hospital Encounter Gastroenterology Real Jones MD [facility] GASTROENTEROLOGY DEPT. [place], [place] [address] (Wo rk) Scheduled Procedures Name Priority Associated Diagnoses Date/Time COLONOSCOPY, DIAGNOSTIC 10 yr f/up documented as of this encounter Procedures Procedure Name Priority Date/Time Associated Diagnosis Comme nts XR FLUORO BARIUM Routine 12/08/2016 11:16 Gastrointestinal Res ults for this SWALLOW (SINGLE AM EDT hemorrhage, unspecified p rocedure are in CONTRAST) gastrointestinal the results hemorrhage type section. documented in this [...] findings, Steve Ocasio at 12/08/2016 11:46 AM Denis Dinh MD [facility] FLUORO ORDERABLES documented in this encounter Visit Diagnoses Diagnosis Gastrointestinal hemorrhage, unspecified gastrointestinal hemorrhage type documented in this encounter Administered Medications Inactive Administered Medications - up to 3 most recent administrations Medication Order MAR Action Action Date Dose Rate Site barium sulfate (E-Z DISK) tablet Given 12/08/2016 11:05 AM EDT 7 00 mg 700 mg 700 mg, Oral, ONCE PRN, 1 dose, Starting on Sun12/08/16 at 1117, Until Sun12/08/16 at 1105, Per Protocol, Routine barium sulfate (E-Z-HD) 98 % oral Given 12/08/2016 11:05 AM EDT 135 mLs suspension 135 mL 135 mL, Oral, ONCE PRN, 1 dose, Starting on Sun12/08/16 at 1117, Until Sun12/08/16 at 1105, Per Protocol, Routine barium sulfate (EZPAQUE) oral suspension Given 12/08/2016 11:00 AM EDT 275 mLs 275 mL 275 mL, Oral, ONCE PRN, 1 dose, Starting on Sun12/08/16 at 1117, Until Sun12/08/16 at 1100, Per Protocol, Routine documented in this encounter Care Teams End Maker Relationship Specialty Start Date End Date Marin Patton MD PCP - General 02/15/10 01/25/17 documented as of this encounter
--- OUTSIDE RECORDS SUMMARY | 2021-12-30 01:33 | XMS_ITS | Encounter Summary ---
:1955 Author Organization [facility] [place] [address] Care Team Providers Name Role Phone Marin Patton MD Primary Care Provider Encounter Details Date Type Department Care Team Description 12/09/2016 Orders Only Thoracic Surgery at [facility] hernia; [facility] MD Alexsandra Esophageal dysmotility [address] [place] [address] Thoracic Surgery [phone] [place], [place] [address] Social History Tobacco Use Types [...] Visit Radiation Oncology Clover Covarrubias APRN [facility] RADIATION ONCJENNIFER [place], [place] [address] (Wo rk) 12/04/2022 Hospital Encounter Gastroenterology Real Jones MD [facility] GASTROENTEROLOGY DEPT. [place], [place] [address] (Wo rk) Scheduled Procedures Name Priority Associated Diagnoses Date/Time COLONOSCOPY, DIAGNOSTIC 10 yr f/up documented as of this encounter Visit Diagnoses Diagnosis Hiatal hernia Diaphragmatic hernia without mention of obstruction or gangrene Esophageal dysmotility Dyskinesia of esophagus documented in this encounter Care Teams Printing Shop Supervisor Relationship Specialty Start Date End Date Marin Patton MD PCP - General 02/15/10 01/25/17 documented as of this encounter
--- OUTSIDE RECORDS SUMMARY | 2021-12-30 01:33 | XMS_ITS | Encounter Summary ---
:1955 Author Organization [facility] [address] Care Team Providers Name Role Phone Clara Wood MD Primary Care Provider Encounter Details Date Type Department Care Team Description 01/29/2017 Laboratory Lab at [facility] Paraesophageal hiatal Appointment [facility] [place] [id number] Social History Tobacco Use Types Packs/Day Years [...] Oncology Clover Covarrubias APRN [facility] RADIATION ONCJENNIFER GY [place], [place] [address] (Wo rk) 12/04/2022 Hospital Encounter Gastroenterology Real Jones MD [facility] GASTROENTEROLOGY DEPT. [place], [place] [address] (Wo rk) Scheduled Procedures Name Priority Associated Diagnoses Date/Time COLONOSCOPY, DIAGNOSTIC 10 yr f/up documented as of this encounter Procedures Procedure Name Priority Date/Time Associated Diagnosis Comme nts HEMOGRAM Routine 01/29/2017 10:50 Paraesophageal hiatal Re sults for this AM EST hernia procedure are i n the results section. DIFFERENTIAL, Routine 01/29/2017 10:50 Paraesophageal hiatal R esults for this AUTOMATED AM EST hernia procedure are i n the results section. CBC (WITH DIFF) Routine 01/29/2017 10:50 Paraesophageal hiatal AM EST hernia COMPREHENSIVE Routine 01/29/2017 10:50 Paraesophageal hiatal R esults for this METABOLIC PANEL AM EST hernia procedure ar e in (NON-FASTING) the results section. documented in this encounter Results Differential, Automated (01/29/2017 10:50 AM EST) athologist Signature Neutrophils % 49.0 % [facility] Neutr Abs (ANC) 2.44 1.70 - [facility] 6.10 [facility] x10(3)/[facility] LABORATORY Lymphocytes % 38.4 % [facility] Lymphocytes Abs 1.9 0.9 - 3.[address] [facility] x10(3)/[facility] LABORATORY Monocytes % 9.2 % [facility] Monocyte Abs 0.5 0.3 - 0.[address] [facility] x10(3)/[facility] LABORATORY Eosinophils % 2.2 % [facility] Eosinophils Abs 0.1 0.0 - 0.[address] [facility] x10(3)/[facility] LABORATORY Basophils % 1.0 % [facility] Basophils Abs 0.0 0.0 - 0.[address] [facility] x10(3)/[facility] LABORATORY Immature Gran % 0.20 % [facility] Comment: Immature granulocytes(IG's)percentage an d absolute count will include metamyelocytes, myelocytes, and promyelo cytes. Blood smears from CBCs yielding IG's will be scanned manually for concor dance. If this scan disagrees with the automated IG or if promyelocytes are not ed, a manual differential will be performed. Malika Gran Abs 0.01 0.00 - 0.04 x10(3)/mcL MAR Y [facility] LABORATORY Specimen Anatomical Collection Method Collection Time Receive d Time (Source) Location / / Volume Laterality Blood specimen 01/29/2017 10:50 7 (specimen) AM EST 11:06 AM EST Resulting Agency Comment Spec In Lab Al Ortiz MD HEMATOLOGY ORDERABLES Performing Organization Address City/[facility]/ZIP [place] [address] (ABNORMAL) Hemogram (01/29/2017 10:50 AM EST) Analysis Performed At Patho logist Time Signature WBC 5.0 4.0 - 9.[address] [facility] x10(3)/[facility] LABORATORY RBC 4.32 (L) 4.58 - [facility] x10(6)/[facility] Hemoglobin 14.4 13.7 - [facility] 16.[facility] gm/dL [facility] Hematocrit 41.9 40.5 - [facility] 48.5 % [facility] MCV 97.0 (H) 82.9 - [facility] 93.1 [facility] LABORATORY MCH 33.3 (H) 27.5 - [facility] 32.1 pg [facility] LABORATORY MCHC 34.4 32.0 - [facility] 35.7 gm/dL [facility] Platelets 218 145 - [address] [facility] x10(3)/[facility] LABORATORY RDWSD 41.8 36.0 - [facility] 45.0 [facility] LABORATORY RDWCV 11.7 11.4 - [facility] MIGUELINA 13.8 % [facility] LABORATORY MPV 8.6 7.6 - 12.9 [facility] LABORATORY nRBC % Auto 0.0 % [facility] nRBC Abs Auto 0.000 0.000 - [facility] MIGUELINA 0.000 [facility] x10(3)/[facility] LABORATORY Specimen Anatomical Collection Method Collection Time Receive d Time (Source) Location / / Volume Laterality Blood specimen 01/29/2017 10:50 7 (specimen) AM EST 11:06 AM EST Resulting Agency Comment Spec In Lab Al Ortiz MD HEMATOLOGY ORDERABLES Performing Organization Address City/State/ZIP [place] [address] Comprehensive metabolic panel (non-fasting) (01/29/2017 10:50 AM EST) athologist Signature Glucose Lvl 87 65 - [address] [facility] mg/dL [facility]ORY Comment: Diabetes: >=200 mg/dL plus symp toms BUN 15 10 - 20 mg/dL [facility] Creatinine 1.04 0.80 - 1.50 mg/dL [facility] Sodium 141 135 - 145 mmol/L [facility] Potassium 4.1 3.5 - 5.0 mmol/L [facility] Comment: Please note: ??Patients with WBC >100,00 0 may have falsely elevated Potassium levels. ??For accurate Potassium quantif ication in these patients send serum separator tube (gold top) for subsequent determinations. ??Contact the Clinical Chemistry Laboratory if there are any qu estions. Chloride 103 98 - 107 mmol/L [facility] CO2 26 22 - 31 mmol/L [facility] Anion Gap 12 5 - 15 mmol/L [facility] Calcium 9.2 8.5 - 10.5 mg/dL [facility] Total Protein 7.3 6.1 - 8.0 gm/dL [facility] LABOR[facility] Albumin 4.4 3.2 - 5.2 gm/dL [facility] AST 28 0 - 39 unit/L [facility] ALT 30 0 - 55 unit/L [facility] Alk Phos 55 40 - 120 unit/L [facility] Total Bilirubin 0.7 0.2 - 1.3 mg/dL [facility] Estimated GFR >60 >=60 [facility] Comment: The reported eGFR should be multiplied b y 1.2 for patients. The MDRD is not an appropriate measure o f renal function for patients with body mass extremes or in patients with acute kidney failure. http://[employer].com/DHnkdep http://[employer] TV/DHMCnkf Specimen Anatomical Collection Method Collection Time Receive d Time (Source) Location / / Volume Laterality Blood specimen 01/29/2017 10:50 7 (specimen) AM EST 11:06 AM EST Resulting Agency Comment Spec In Lab Al Ortiz MD CHEMISTRY ORDERABLES Performing Organization Address City/State/[place] [address] documented in this encounter Visit Diagnoses Diagnosis Paraesophageal hiatal hernia Diaphragmatic hernia without mention of obstruction or gangrene documented in this encounter Care Teams Prescription Clerk Relationship Specialty Start Date End Date Clara Wood MD PCP - General Family Medicine 01/26/17 Ebony [address]EN [address] [place] [address] documented as of this encounter
--- OUTSIDE RECORDS SUMMARY | 2021-12-30 01:33 | XMS_ITS | Encounter Summary ---
:1955 Author Organization [facility] [place] [address] Care Team Providers Name Role Phone Marin Patton MD Primary Care Provider Encounter Details Date Type Department Care Team Description 12/19/2016 Tech Visit Gastroenterology at [facility] [place], Gastroesophageal reflux [facility] Alexsandra CHESTER MD [place], [place] [address] [facility] presence not specified [phone] [facility] [address] Social History Tobacco Use Types Packs/Day Years [...] documented as of this encounter Progress Notes Real Jones MD - 12/19/2016 8:00 PM EDT HIGH-RESOLUTION ESOPHAGEAL MANOMETRY Amanuel Hussein [address] [facility] [address] : 1955 STUDY DATE: 12-19-2016 PROVIDER: Real Jones, PhD, [place] ([id number]) INDICATION GERD METHODS Stationary esophageal manometry was performed with the ManoScan ESO version 3.0 in a supervised setting after verbal consent and after topical anesthesia to the nares. This system uses 36 individual circumferential solid state sensors spaced 1 cm apart. The outer diameter of the probe is 4.2 mm. Length, resting pressure, pressure inversion point (PIP), and relaxation of the lower esophageal sphincter (LES) was measured. The high pressure zone of the upper esophageal sphincter (UES) was measured. Water swallows were provided after a 0-ws-6-minute accommodation period to assess LES function and function of the esophageal body. FINDINGS LES (lower esophageal sphincter) Distal border of LES identified at 48.4 cm. Proximal border of LES identified at 45.6 cm. Hiatal hernia present? Yes, sliding, 3 cm Basal pressure respiratory mean pressure 8.1 mmHg (normal = 15-34 mmHg). Residual mean pressure (integrated relaxation pressure - IRP) 6.0 mmHg (normal = <15 mmHg). BODY OF ESOPHAGUS Water Swallows: 10. Failed: 80%. Transmitted (peristaltic): 20%. Panesophageal pressurization: 10% Premature: 0% Rapid: 0% With large breaks: 0%. With small breaks: 0%. DCI (distal contractile integral): 850 mmHg-cm-s (normal is 450 to 5000 mmHg-cm-s). Contractile front velocity: 4 cm/s (normal is <9.0 cm/s). Intrabolus pressure (average maximum): 14.8 mmHg (normal is <17.0 mmHg). Distal latency: 6.3 UES (upper esophageal sphincter) Distal border of UES identified at 21.9 cm and extended to 19.7 cm. UES basal pressure 36 mmHg (normal = 34-104 mmHg). Residual pressure 4.9 mmHg (normal = <12 mmHg). IMPRESSION 1. Hypotensive LES resting pressure. This [...] connective tissue disorder. Clinical correlation is required. *Measurements and diagnostic criteria per [place] 3.0 Classification. Real Jones, PhD, MD animal husbandry professor, [facility] Chief, Section of Gastroenterology and [place]at[place] [address] V: [phone] F: [phone] CC/EC: PCP documented in this encounter Plan of Treatment Upcoming Encounters Date Type Specialty Care Team Description 01/19/2022 Office Visit Radiation Oncology Clover Covarrubias APRN [facility] RADIATION ONC[address]ENNIFER [address] [place], [place] [address] (Wo rk) 12/04/2022 Hospital Encounter Gastroenterology Real Jones MD [facility] GASTROENTEROLOGY DEPT. [place], [place] [address] (Wo rk) Scheduled Procedures Name Priority Associated Diagnoses Date/Time COLONOSCOPY, DIAGNOSTIC 10 yr f/up documented as of this encounter Visit Diagnoses Diagnosis Gastroesophageal reflux disease, esophag itis presence not specified documented in this encounter Care Teams Pulmonary Specialist Relationship Specialty Start Date End Date Marin Patton MD PCP - General 02/15/10 01/25/17 documented as of this encounter
--- OUTSIDE RECORDS SUMMARY | 2021-12-30 01:34 | XMS_ITS | Encounter Summary ---
:1955 Author Organization [place] [address] Care Team Providers Name Role Phone Marin Patton MD Primary Care Provider Encounter Details Date Type Department Care Team Description 11/28/2016 Telephone Gastroenterology at [facility] [place] Keith Daugherty MD [facility] [place] [address] GASTROENTEROLOGY DEPT [phone] [place] [id number] (Wo rk) Social History Tobacco Use Types [...] this encounter Miscellaneous Notes Telephone Encounter - Keith Daugherty MD - 11/28/2016 11:45 AM EDT Called by [facility] regarding Mr Hussein. He has a history of recurrent esophageal ucler back in 2012 and presents today to the ED with a several day history of melena and pre-syncope. He denies any abdominal pain nausea or vomiting. Hgb from 14-->12, plt WNL no INR drawn, no hx of liver disease. Recommend EGD to exclude upper source and further plan pending results of EGD> documented in this encounter Plan of Treatment Upcoming Encounters Date Type Specialty Care Team Description 01/19/2022 Office Visit Radiation Oncology Clover Covarrubias APRN [facility] RADIATION ON[place]O [place], [place] [address] (Wo rk) 12/04/2022 Hospital Encounter Gastroenterology Real Jones MD [facility] GASTROENTEROLOGY DEPT. [place], [place] [address] (Wo rk) Scheduled Procedures Name Priority Associated Diagnoses Date/Time COLONOSCOPY, DIAGNOSTIC 10 yr f/up documented as of this encounter Visit Diagnoses Not on filedocumented in this encounter Care Teams Clinical Material Handler Relationship Specialty Start Date End Date Marin Patton MD PCP - General 02/15/10 01/25/17 documented as of this encounter
--- OUTSIDE RECORDS SUMMARY | 2021-12-30 01:34 | XMS_ITS | Encounter Summary ---
:1955 Author Organization [facility] [place] [address] Care Team Providers Name Role Phone Marin Patton MD Primary Care Provider Reason for Visit Reason Onset Date Comments Other 11/08/2012 Pt Rescheduled Encounter Details Date Type Department Care Team Description 11/08/2012 Telephone Gastro[place]ology [place] [facility] [place] Shreya Dallas Other (Pt [facility] D [facility]se Rescheduled) [place] [address] Social History Tobacco Use Types Packs/Day [...] this encounter Miscellaneous Notes Telephone Encounter - Shreya Dallas - 11/08/2012 4:27 PM EDT Pt orig sched for 12/02/12 for IMP, EGD/colo, but Dr. Jones has become unavailable on 12/02/12 when pt was supposed to have his EGD/colo. In order to accommodate pt and doc, pt was resched for 12/04/12, 12:[address] Dr. Jones changed IMP to [place] so this could be placed during EGD. Pt was called; Maxine explained part of situation and I explained the rest (switch to [place]) and pt fine will all of this. Faxed updated appt info (excluding colo info) to pt at his work at his request ([phone]). -bcj documented in this encounter Plan of Treatment Upcoming Encounters Date Type Specialty Care Team Description 01/19/2022 Office Visit Radiation Oncology Clover Covarrubias APRN [facility] RADIATION [place], [place] [address] (Wo rk) 12/04/2022 Hospital Encounter Gastroenterology Real Jones MD [facility] GASTROENTEROLOGY DEPT. [place], [place] [address] (Wo rk) Scheduled Procedures Name Priority Associated Diagnoses Date/Time COLONOSCOPY, DIAGNOSTIC 10 yr f/up documented as of this encounter Visit Diagnoses Not on filedocumented in this encounter Care Teams Insurance Salesperson Relationship Specialty Start Date End Date Marin Patton MD PCP - General 02/15/10 01/25/17 documented as of this encounter
--- OUTSIDE RECORDS SUMMARY | 2021-12-30 01:34 | XMS_ITS | Encounter Summary ---
:1955 Author Organization [facility] [address] Care Team Providers Name Role Phone Marin Patton MD Primary Care Provider Encounter Details Date Type Department Care Team Description 12/27/2012 Telephone [place]ology [place] [facility] [place] Catalina Iverson APRN [facility] [place] [address] [place], [place] [id number] [phone] (Wo rk) Social History Tobacco Use Types [...] this encounter Miscellaneous Notes Telephone Encounter - Catalina Iverson APRN - 12/27/2012 1:52 PM EDT Attempted to contact Mr Hussein but no answer and left a message with call back number. Will mail letter with results of [place] ph study. documented in this encounter Plan of Treatment Upcoming Encounters Date Type Specialty Care Team Description 01/19/2022 Office Visit Radiation Oncology Clover Covarrubias APRN [facility] RADIATION [place], [place] [address] (Wo rk) 12/04/2022 Hospital Encounter Gastroenterology Real Jones MD [facility] ER GASTROENTEROLOGY DEPT. [place], [place] [address] (Wo rk) Scheduled Procedures Name Priority Associated Diagnoses Date/Time COLONOSCOPY, DIAGNOSTIC 10 yr f/up documented as of this encounter Visit Diagnoses Not on filedocumented in this encounter Care Teams Security Assurance Analyst Relationship Specialty Start Date End Date Marin Patton MD PCP - General 02/15/10 01/25/17 documented as of this encounter
--- OUTSIDE RECORDS SUMMARY | 2021-12-30 01:34 | XMS_ITS | Encounter Summary ---
:1955 Author Organization [facility] [place] [address] Care Team Providers Name Role Phone Marin Patton MD Primary Care Provider Encounter Details Date Type Department Care Team Description 12/04/2012 Surgery Gastroenterology at [facility] [place] Jessy Nobles MD COLONOSCOPY, [facility] [place] [address] GASTROENTER[address]Y DEPT. [place] [id number] Social History Tobacco Use Types Packs/Day Years [...] Reading Time Taken Comments Blood Pressure 124/78 12/04/2012 1:15 PM EDT Pulse 56 12/04/2012 1:15 PM EDT Temperature 36.5 ??C (97.7 ??F) 12/04/2012 11:47 AM EDT Respiratory Rate 12 12/04/2012 1:15 PM EDT Oxygen Saturation 94% 12/04/2012 1:15 PM EDT Inhaled Oxygen Concentration - - Weight - - Height - - Body Mass Index - - documented in this encounter Discharge Instructions Discharge InstructionsNathaniel Borja RN - 12/04/2012 1:19 PM EDT Colonoscopy What to expect after the procedure You may feel a little more gassy or bloated than usual. This is normal. You should expect the return of normal bowel function in the 2 to 3 days. Activity Because of the sedation that you received your judgement and reaction time are effected ?? Go home and rest quietly for the remainder of the day. You may resume your normal activities tomorrow. ?? Change from one position to the next slowly. You may lose your balance unexpectedly ?? Be careful on stairs, as you may be unsteady on your feet FOR THE NEXT 24 HRS ?? DO NOT DRIVE OR OPERATE ANY MACHINERY ?? DO NOT DRINK ALCOHOLIC BEVERAGES ?? DO NOT SIGN LEGAL DOCUMENTS ?? If you are a smoker: DO NOT SMOKE WHILE YOU ARE ALONE Diet ?? Start by eating small portions of foods that ordinarily will not upset your stomach . Avoid gas producing foods for the next few days ?? Be gentle with what you choose to start with ?? Drink plenty of fluids ( unless your doctor has told you not to). IV SITE-- slight redness, or tenderness is normal. You can use warm compresses if you become concerned. If the tenderness +/or redness increases or foul drainage and a red streak occurs, please contact your PCP immediately When shoud you call for help? Call 911 anytime you think you may need emergency care. For example If you pass out ( loss of consciousness) If you pass maroon or bloody stools If you have severe belly pain Call your doctor now or seek immediate medical care If your stools are black and tarlike If your stools have streaks of blood, but you did not have a biopsy or any polyps removed If you have belly pain, or your belly is swollen and firm If you vomit If you have a fever If you are very dizzy Watch closely for changes in your health, and be sure to contact your doctor if you have any problems Your doctor will let you know when you will need your next colonoscopy. The results of your test andyour risk for colorectal cancer will help your doctor decide how often you need to be checked. [facility] [phone] 8a-5p Same Day Endo [phone] 7a-8p Otherwise contact [phone] and ask to speak to the deli cutter slicer data integration analyst Follow up care is a johnson part of your treatment and safety. Be sure to make and go to all appointments, and call your doctor if you are having problems. Discharge instructions reviewed with patient who expresses understanding UPPER GI ENDOSCOPY with Sommer PH Capsule WHAT TO EXPECT AFTER THE PROCEDEURE After the test you may feel a little more gassy or bloated than usual. This is normal. ACTIVITY Because of the sedation that you recieved Your judgement and reaction time are affected ?? Go home and rest quietly for the remainder of the day. You may resume your normal activities tomorrow. ?? Change from one position to the next slowly. You may loose your balance unexpectedly. ?? Be careful on stairs, as you may be unsteady on your feet. FOR THE NEXT 24 HRS ?? DO NOT DRIVE OR OPERATE ANY MACHINERY ?? DO NOT DRINK ALCOHOLIC BEVERAGES ?? DO NOT SIGN LEGAL DOCUMENTS or make important decisions ?? If you are a smoker: DO NOT SMOKE WHILE YOU ARE ALONE Diet ?? Start by eating small portions of foods that ordinarily won't upset your stomach. Be gentle with what you choose to start with. ?? Drink plenty of fluids ( unless otherwise told not to) Medications ?? You may have a mild sore throat. Ice chips, popsicles, over- the-counter throat lozenges or spay may help numb your throat. This procedure should not cause a fever. ?? You may experience some chest discomfort that may or may not get worse with swallowing. If this happens try drinking a warm liquid which will help relax the esophagus. Or use pain medicine that you normally would use ( Tylenol, advil ...). Peppermint tea may also be useful. This discomfort usually passes after 24-48 hrs. Other Instructions Be sure to carry your staffing executive within 3 feet at all times . Follow the instructions that were given to you along with your diary. IV SITE may get red or tender. This is normal. You may use warm compresses 20 minutes at a time on and off for the next day or so. If the tenderness +/or redness increases or foul drainage and a red streak occurs, please contact your PCP WHEN SHOULD YOU CALL FOR HELP? Call 911 anytime you think that you need emergency care. For example, call if: You passed out (lost consciousness). You cough up blood. You vomit blood or what looks like coffee grounds. You pass maroon or very bloody stools. Call your doctor now or seek immediate medical attention if: Severe chest pain that gets worse with swallowing You have trouble swallowing. You have belly pain. Your stools are black or tarlike or have streaks of blood. You are sick to your stomach or cannot keep fluids down. Watch closely for changes in your health, and be sure to contact your doctor IF Your throat still hurts after a day or two You do not get better as expected. [facility] [phone] 8a-5p Same Day Endo [phone] 7a-8p Otherwise contact [phone] and ask to speak to the deli cutter slicer data integration analyst Jing Noland RN [phone] if any problems with staffing executive Follow-up care is a johnson part of your treatment and safety. Be sure to make and go to all appointments, and call your doctor if you are having problems. Instructions have been reviewed and patient expresses understanding Patient InstructionsJessy Nobles MD - 12/04/2012 1:06 PM EDT Please see Recommendations in the Provation procedure report which is documented in the procedural note in [facility]. documented in this encounter Medications at Time of Discharge Medication Sig Dispensed Refills Start Date End Date esomeprazole (NEXIUM) 40 Take 40 mg by mouth 0 11/29/2016 mg capsule 2 times daily. documented as of this encounter H&P Notes Jessy Nobles MD - 12/04/2012 12:27 PM EDT Patient seen and examined; no interval change since out-patient gi consult; rrr; clear lungs; consent signed for colo and egd and sommer; risks explained. documented in this encounter Miscellaneous Notes Miscellaneous - Provider, Scanning - 12/04/2012 2:46 PM EDT documented in this encounter Plan of Treatment Upcoming Encounters Date Type Specialty Care Team Description 01/19/2022 Office Visit Radiation Oncology Clover Covarrubias APRN [facility] RADIATION ONCOLO [place], [place] [address] (Wo rk) 12/04/2022 Hospital Encounter Gastroenterology Jessy Nobles MD [facility] GASTROENTEROLOGY DEPT. [place], [place] [address] (Wo rk) Scheduled Procedures Name Priority Associated Diagnoses Date/Time COLONOSCOPY, DIAGNOSTIC 10 yr f/up documented as of this encounter Procedures Procedure Name Priority Date/Time Associated Comments Diagnosis SURGICAL PATHOLOGY Routine 12/04/2012 1:11 Result s for this REPORT PM EDT procedure are i n the results section. SPECIMEN TO PATHOLOGY Routine 12/04/2012 1:11 Res ults for this PM EDT procedure are i n the results section. SPECIMEN TO PATHOLOGY Routine 12/04/2012 1:11 Res ults for this PM EDT procedure are i n the results section. UPPER GASTROINTESTINAL Routine 12/04/2012 12:54 Hemateme sis ENDOSCOPY,WITH BIOPSY PM EDT Melena SINGLE OR MULTIPLE Esophageal ulcer UPPER GASTROINTESTINAL 12/04/2012 12:22 Hemateme sis ENDOSCOPY,WITH BIOPSY PM EDT Melena SINGLE OR MULTIPLE (WRVU Esophageal ulcer 2.49) COLONOSCOPY, DIAGNOSTIC 12/04/2012 12:22 Hematem esis PM EDT Melena Esophageal ulcer COLONOSCOPY Routine 12/04/2012 12:05 Results for this PM EDT procedure are i n the results section. UPPER GI ENDOSCOPY Routine 12/04/2012 12:05 Resul ts for this PM EDT procedure are i n the results section. documented in this encounter Results Surgical Pathology Report (12/04/2012 1:11 PM EDT) Component Value Ref Test Analysis Performed At [facility] Range Method Time Signature Surgical CERNER Pathology ? [facility] Report ? Provider: ?? JESSY NOBLES ? Pt. Name: ? ? ROHITFRANSISCO ? Acc #: ?[id number] ?Pt. MRN: ?[id number] ? Col Date: ?? 3 ? /Sex: ?1955,(57 years),Male ? Rec Date: ?? 12/04/2012 ? LOC: ?4T ? SURGICAL PATHOLOGY ? ---Pathologic Diagnosis--- ? Endoscopic biopsies - ? A - Stomach: ? Gastric antral and fundic gland mucosa with mild nonspecific reactive ? gastropathy. ? No H. pylori-like microorganism is seen. ? B - Esophagus: ? Squamocolumnar junctional mucosa (c ardia type) with multilayered ? epithelium and no evidence of intestinal metaplasia ( SEE NOTE). ? NOTE: Multilayered ep ithelium is a marker of reflux injury and a possible ? precursor of Latif's esophagus. ? CR-0 ? 12/05/12 ? XL ? 12/05/12 Verified by: ? Duke Farooq MD ? Pathologist ? (Electronic Si gnature) ? The attending pathologist whose signature appears o n this report has ? reviewed all diagnostic slides and has edited the richard ss and/or ? microscopic portion of the report in rendering the fi nal pathologic ? diagnosis. ? ---Microscopic Description--- ? Immunohistochemistry Studies: ? Formalin-fixed, paraf fin-embedded tissue sections are studied using the B- ? SA system technique w ith appropriate positive and negative controls. ??These ? IHC studies provide t he pathologist with adjunctive diagnostic information. ? Antibody specificity has been verified by testing antibodies on a series of ? in-house tissues with known immunohistochemical perfo rmance ? characteristics. The clinical interpretation of any antibody positive ? staining or its absence is evaluated within the maria t xt of clinical ? presentation, morphol ogy, histopathological criteria and other diagnostic ? tests. ? Block ?Antibody ? Result (Posi tive/Negative) ? A1 ? H. pylori ?Negative ? ---Gross Description--- ? A - Labeled/Fixative: Stomach, formalin. ? [facility] ? Provider: ?? JESSY NOBLES ? Pt. Name: ? ? FRANSISCO BEE ? Acc #: ?[id number] ?Pt. MRN: ?[id number] ? Col Date: ?? 3 ? /Sex: ?1955,(57 years),Male ? Rec Date: ?? 12/04/2012 ? LOC: ?4T ? SURGICAL PATHOLOGY ? Quantity/Size: Five, ranging from 0.3-0.6 cm. ? Tissue Description: Soft, pink tissues. ? Sections/Processing: (T1) ? B - Labeled/Fixative: Esophagus, formalin. ? Quantity/Size: Five, averaging 0.3 cm. ? Tissue Description: Soft, pink tissues. ? Sections/Processing: (T1) ? ---Clinical Information--- ? Specimen Submitted: ? A - Stomach ? B - Esophagus ? Clinical History: ? GERD ? Clinical Diagnosis: ? A - gastric erythema; question HP ? B - irregular Z line from 39-38; question Latif's Specimen (Source) Anatomical Collection Method Collection Time Re ceived Time Location / / Volume Laterality 12/04/2012 1:11 PM EDT Jessy Nobles MD PATHOLOGY/CYTOLOGY ORDERABLE S Performing Organization Address [facility]/ZIP Code Phon e Number [address] CERNER MILLENNIUM Specimen to Pathology (surgical or derm) (12/04/2012 1:11 PM EDT) Specimen Anatomical Collection Method Collection Time Receive d Time (Source) Location / / Volume Laterality AP Specimen 12/04/2012 1:11 PM 3 1:11 EDT PM EDT Narrative CERNER MILLENNIUM - 12/04/2012 1:11 PM E DT Specimen requisition ordered. ??Separate Pathology report to follow Jessy Nobles MD PATHOLOGY/CYTOLOGY ORDERABLE S Performing Organization Address City/[facility]/ZIP Code Phon e Number [address] CERNER MILLENNIUM Specimen to Pathology (surgical or derm) (12/04/2012 1:11 PM EDT) Specimen Anatomical Collection Method Collection Time Receive d Time (Source) Location / / Volume Laterality AP Specimen 12/04/2012 1:11 PM 3 1:11 EDT PM EDT Narrative CERNER MILLENNIUM - 12/04/2012 1:11 PM E DT Specimen requisition ordered. ??Separate Pathology report to follow Jessy Nobles MD PATHOLOGY/CYTOLOGY ORDERABLE S Performing Organization Address City/[facility] [place] [address] CERNER MILLENNIUM COLONOSCOPY (12/04/2012 12:05 PM EDT) Component Value Ref Test Analysis Performed At Patholo gist Range Method Time Signature COLONOSCOPY [facility] PROVATION Endoscopy Patient Name: Fransisco Bee ? Procedure Date: 12/04/2012 12:05 PM ? Date of : 1955 ? Age: 57 ? Order #: [id number] ? Procedure: ? Colonoscopy Indications: ? Melena Providers: ? Jessy Nobles MD, Keena Borja RN, ? Jole Leija MD: ?Marin Patton MD Requesting Provider: Catalina Iverson APRN Medicines: ? Midazolam 2 mg IV, Fentanyl 100 ? micrograms IV, Diphenhydramin e 50 mg ? IV Complications: ? No immediate complications. Procedure: ? The procedure, indications, benefi ts, ? risks and alternatives were e xplained ? to the patient. Specifically ? discussed were potential ? complications including, but not ? limited to, bleeding, perfora tion, ? infection, missing a cancer, and ? adverse medication reactions. The ? patient was placed in the lef t ? lateral decubitus position, a nd a ? digital rectal exam was perfo rmed. ? The Colonoscope was inserted in the ? anus and under direct visuali zation, ? advanced to the terminal ileu m. ? Careful inspection was made a s the ? colonoscope was withdrawn. Th e ? colonoscopy was performed wit hout ? difficulty. The patient ernesto ated the ? procedure well. The quality o f the ? bowel preparation was good. ? Findings: ? The terminal ileum appeared normal. ? The cecum appeared normal. ? The ascending colon appeared normal. ? The transverse colon appeared normal. ? The descending colon appeared normal. ? The sigmoid colon appeared normal. ? The rectum appeared normal. ? Impression: ?- The examined portion of the ileu m ? was normal. ? - The cecum is normal. ? - The ascending colon is norm al. ? - The transverse colon is nor mal. ? - The descending colon is nor mal. ? - The sigmoid colon is normal . ? - The rectum is normal. Recommendation: ?- Repeat colonoscopy in 10 years for ? surveillance. ? - Return to primary care phys ician as ? previously scheduled. ? Attending Participation: ? I personally performed the entire procedure. ? Jessy Nobles MD 12/04/2012 12:49 PM This report has been signed electronically. Number of Addenda: 0 Note Initiated On: 12/04/2012 12:05 PM Specimen (Source) Anatomical Collection Method Collection Time Re ceived Time Location / / Volume Laterality 12/04/2012 12:05 PM EDT Marin Patton MD GENERAL SURGICAL ORDERABLES Performing Organization Address City/State/ZIP Code Phon e Number PROVATION UPPER GI ENDOSCOPY (12/04/2012 12:05 PM EDT) [facility] Method Time Signature UPPER GI [facility] PROVATION ENDOSCOPY Endoscopy Patient Name: Fransisco Bee ? Procedure Date: 12/04/2012 12:05 PM ? Date of : 1955 ? Age: 57 ? Order #: [id number] ? Procedure: ? Upper GI endoscopy Indications: ? Heartburn, Melena; follow up for ? bleeding esophageal ulcer; ne ed to ? accurately place wireless pH capsule Providers: ? Jessy Nobles MD, Keena Borja RN, ? Joel Leija Referring MD: ?Marin Patton MD Requesting Provider: Catalina Iverson APRN Medicines: ? Midazolam 1 mg IV, Fentanyl 75 ? micrograms IV Complications: ? No immediate complications. Procedure: ? The procedure, indications, benefi ts, ? risks and alternatives were e xplained ? to the patient. Specifically ? discussed were potential ? complications including, but not ? limited to, bleeding, perfora tion, ? infection, missing a cancer, and ? adverse medication reactions. The ? Endoscope was introduced thro [facility] the ? mouth, and advanced to the ird part ? of duodenum. The patient tole rated ? the procedure well. The upper GI ? endoscopy was accomplished wi out ? difficulty. ? Findings: ? The examined duodenum was normal. ? Patchy mildly erythematous mucosa without bleeding ? was found in the gastric body and in the gastric ? antrum. Biopsies were taken with a cold forceps for ? histology to rule out h. pylori (jar 1). ? The gastric fundus was normal. ? A medium-sized hiatus hernia was present extending ? from 44 cm to 39 cm. ? The Z-line was irregular and was found 38 to 39 cm ? from the incisors. Biopsies were taken with a cold ? forceps for histology to rule out Barretts (jar 2). ? - The SOMMER capsule with delivery system was ? introduced through the mouth and advanced into the ? esophagus, such that the SOMMER pH capsule was ? positioned 32 cm from the incisors, which was 6 cm ? proximal to the EG junction. The SOMMER pH capsule was ? then deployed and attached to the esophageal mucosa. ? The delivery system was then withdrawn. Endoscopy was ? utilized for probe placement and diagnostic ? evaluation. ? The middle third of the esophagus was normal. ? The upper third of the esophagus was normal. ? Impression: ?- Normal examined duodenum. ? - Gastric mucosal abnormality in the ? gastric body and antrum derrick cterized ? by erythema. This was biopsie d. ? - Normal gastric fundus. ? - Hiatus hernia. ? - Z-line irregular, 38 to 39 cm from ? the incisors. This was biopsi ed. ? - Normal middle third of esop hagus. ? - Normal upper third of esoph cookie. ? - The SOMMER pH capsule was de ployed. Recommendation: ?- Await pathology results. ? - Letter to be sent to raymond dean and ? referring provider in 8-10 da ys. ? - Return to primary care phys ician as ? previously scheduled. ? Attending Participation: ? I personally performed the entire procedure. ? Jessy Nobles MD 12/04/2012 1:13 PM This report has been signed electronically. Number of Addenda: 0 Note Initiated On: 12/04/2012 12:05 PM Specimen (Source) Anatomical Collection Method Collection Time Re ceived Time Location / / Volume Laterality 12/04/2012 12:05 PM EDT Marin Patton MD GENERAL SURGICAL ORDERABLES Performing Organization Address City/State/ZIP Code Phon e Number PROVATION documented in this encounter Visit Diagnoses Diagnosis Hematemesis Melena Blood in stool Esophageal ulcer Ulcer of esophagus without bleeding Hematemesis Melena Blood in stool Esophageal ulcer Ulcer of esophagus without bleeding documented in this encounter Administered Medications Inactive Administered Medications - up to 3 most recent administrations Medication Order MAR Action Action Date Dose Rate Site diphenhydrAMINE (BENADRYL) Given 12/04/2012 12:32 PM EDT 25 mg injection ONCE PRN, Starting on Sun12/04/12 at 1229, Until Sun12/04/12 at 1811, Itching, Intra-Operative (Intra-Procedure), Routine Given 12/04/2012 12:29 PM EDT 25 mg fentaNYL 50mcg/mL injection Given 12/04/2012 1:03 PM EDT 25 mcg ONCE PRN, Starting on Sun12/04/12 at 1229, Until Sun12/04/12 at 1811, Pain, Intra-Operative (Intra-Procedure), Routine Given 12/04/2012 12:51 PM EDT 50 mcg Given 12/04/2012 12:32 PM EDT 50 mcg midazolam (VERSED) injection Given 12/04/2012 12:51 PM EDT 1 mg ONCE PRN, Starting on Sun12/04/12 at 1229, Until Sun12/04/12 at 1811, Sleep, Intra-Operative (Intra-Procedure), Routine Given 12/04/2012 12:32 PM EDT 1 mg Given 12/04/2012 12:29 PM EDT 1 mg documented in this encounter Active and Recently Administered Medications Times are shown in EDT. PRN Medication Order 12/02/2012 12/03/2012 12/04/2012 diphenhydrAMINE (BENADRYL) injection (CANCELED) 1229 (Given - Provider: Cece Sheikh RN)1232 (Given - Provider: Cece Sheikh RN) ONCE PRN, Starting Sun12/04/12 at 1229, Until Sun12/04/12 at 1811, Itching, Intra-Operative (Intra-Procedure), Routine fentaNYL 50mcg/mL injection (CANCELED) 1229 (Given - Provider: Cece Sheikh RN)1232 (Given - Provider: Cece Sheikh RN)1251 (Given - Provider: Cece Sheikh RN)1303 (Given - Provider: Keena Borja, RN) ONCE PRN, Starting Sun12/04/12 at 1229, Until Sun12/04/12 at 1811, Pain, Intra- Operative (Intra-Procedure), Routine midazolam (VERSED) injection (CANCELED) 1229 (Given - Provider: Cece Sheikh RN)1232 (Given - Provider: Cece Sheikh RN)1251 (Given - Provider: Keena Borja, ANA) ONCE PRN, Starting Sun12/04/12 at 1229, Until Sun12/04/12 at 1811, Sleep, Intra- Operative (Intra-Procedure), Routine documented in this encounter Care Teams Specialty Trimmer Relationship Specialty Start Date End Date Marin Patton MD PCP - General 02/15/10 01/25/17 documented as of this encounter
--- OUTSIDE RECORDS SUMMARY | 2021-12-30 01:34 | XMS_ITS | Encounter Summary ---
:1955 Author Organization [facility] [place] [address] Care Team Providers Name Role Phone Marin Patton MD Primary Care Provider Encounter Details Date Type Department Care Team Description 12/04/2012 Office Visit Gastroenterology at [facility], DR JENNIFER CHAPMAN [facility] Jing Barrow, [place] ([place] [address] reflux disease) [phone] (Primary Dx) Social History Tobacco Use Types Packs/Day Years [...] documented as of this encounter Progress Notes Jing Noland RN - 12/04/2012 1:49 PM EDT Sommer capsule deployed at 32 cm below incisors during EGD by Dr. Jones. pH 6.2. Study is being done on Nexium 40 mgm twice per day. documented in this encounter Plan of Treatment Upcoming Encounters Date Type Specialty Care Team Description 01/19/2022 Office Visit Radiation Oncology Clover Covarrubias APRN [facility] RADIATION [place], [place] [address] (Wo rk) 12/04/2022 Hospital Encounter Gastroenterology Real Jones MD [facility] GASTROENTEROLOGY DEPT. [place], [place] [address] (Wo rk) Scheduled Procedures Name Priority Associated Diagnoses Date/Time COLONOSCOPY, DIAGNOSTIC 10 yr f/up documented as of this encounter Visit Diagnoses Diagnosis GERD (gastroesophageal reflux disease) - Primary Esophageal reflux documented in this encounter Care Teams Textile Finisher Relationship Specialty Start Date End Date Marin Patton MD PCP - General 02/15/10 01/25/17 documented as of this encounter
--- OUTSIDE RECORDS SUMMARY | 2021-12-30 01:34 | XMS_ITS | Encounter Summary ---
:1955 Author Organization [facility] [place] [address] Care Team Providers Name Role Phone Marin Patton MD Primary Care Provider Encounter Details Date Type Department Care Team Description 09/04/2012 Hospital Encounter Laboratory Ori Rowan MD [address] [address] [place] [id number] [phone] (Wo rk) Social History Tobacco Use Types Packs/Day Years Used Date Never Assessed Sex Assigned at Date Recorded Not on file documented as of this encounter Medications at Time of Discharge Medication Sig Dispensed Refills Start Date End Date lansoprazole (PREVACID) 30 mg capsule 0 01/16/2007 10/16/2012 documented as of this encounter Plan of Treatment Upcoming Encounters Date Type Specialty Care Team Description 01/19/2022 Office Visit Radiation Oncology Clover Covarrubias APRN [facility] RADIATION ONCJENNIFER GY [place], [place] [address] (Wo rk) 12/04/2022 Hospital Encounter Gastroenterology Jessy Jones MD [facility] GASTROENTEROLOGY DEPT. [place], [place] [address] (Wo rk) Scheduled Procedures Name Priority Associated Diagnoses Date/Time COLONOSCOPY, DIAGNOSTIC 10 yr f/up documented as of this encounter Procedures Procedure Name Priority Date/Time Associated Diagnosis Comme nts SURGICAL PATHOLOGY Routine 09/04/2012 4:54 PM Res ults for this REPORT EDT procedure are i n the results section. documented in this encounter Results Surgical Pathology Report (09/04/2012 4:54 PM EDT) Component Value Ref Test Analysis Performed At [facility] Range Method Time Signature Surgical CERNER Pathology ? [facility] Report ? Provider: ?? JESSY JONES ? Pt. Name: ?? AMANUEL CABRALES ? Acc #: ?[id number] ?Pt. MRN: ?[id number] ? Col Date: ?? 3 ? /Sex: ?1955,(57 years),Male ? Rec Date: ?? 09/04/2012 ? LOC: ?[facility] ? SURGICAL PATHOLOGY ? ---Pathologic Diagnosis--- ? CONSULTATION CASE ? Endoscopic biopsies ([id number], collection date 08/21): ? 1. 2nd portion duode num - Duodenal mucosa within normal limits, including ? preserved villous architecture. ? 2. Lower esophagus 40cm - Squam ous esophageal and cardiac mucosa with ? mild chronic nonspeci fic inflammation. No goblet cell metaplasia is seen. ? CR-0 ? 09/05/12 ? AAS ? 09/05/12 Verified by: ? Luan Singleton MD ? Pathologist ? (Electronic Si gnature) ? The attending pathologist whose signature appears o n this report has ? reviewed all diagnostic slides and has edited the richard ss and/or ? microscopic portion of the report in rendering the fi nal pathologic ? diagnosis. ? ---Microscopic Description--- ? Slides reviewed, microscopic description not recorded . ? ---Gross Description--- ? [facility] ([facility]) pathology slide(s) are reviewed. ??Refer ? to Diagnosis and Specimen Submitted for specific case information. ? For the full text of the [facility] report(s) please refer to Non-DH ? Documentation Pathology in the electronic health radha rd (eDH). ? ---Clinical Information--- ? Specimen Submitted: ? CONSULTATION CASE ? A - 3 slides labeled [id number], collection date 08/21. ? [id number] ? Report to: ? [facility] ? Surgical Pathology Department ? [facility] ? Provider: ?? JESSY JONES ? Pt. Name: ?? AMANUEL CABRALES ? Acc #: ?[id number] ?Pt. MRN: ?[id number] ? Col Date: ?? 3 ? /Sex: ?1955,(57 years),Male ? Rec Date: ?? 09/04/2012 ? LOC: ?[facility] ? SURGICAL PATHOLOGY ? [facility], 2nd Floor ? [address] ? [place], [place] ??[address] ? Specimen (Source) Anatomical Collection Method Collection Time Re ceived Time Location / / Volume Laterality 09/04/2012 4:54 PM EDT Jessy Jones MD PATHOLOGY/CYTOLOGY ORDERABLE S Performing Organization Address City/State/ZIP Code Phon e Number [address] [facility] documented in this encounter Visit Diagnoses Not on filedocumented in this encounter Care Teams House Father Relationship Specialty Start Date End Date Marin Patton MD PCP - General 02/15/10 01/25/17 documented as of this encounter
--- OUTSIDE RECORDS SUMMARY | 2021-12-30 01:34 | XMS_ITS | Encounter Summary ---
:1955 Author Organization [facility] [place] [address] Care Team Providers Name Role Phone Marin Patton MD Primary Care Provider Encounter Details Date Type Department Care Team Description 12/20/2012 Telephone [place] [facility] Catalina Iverson APRN [facility] [place] [address] [place], [place] [id number] [phone] (Wo rk) Social History Tobacco Use Types [...] Telephone Encounter - Catalina Iverson APRN - 12/20/2012 2:25 PM EDT Attempted to contact Mr Hussein to review results of tests (egd, adair ph study) but no answer andleft voice message with call back number. documented in this encounter Plan of Treatment Upcoming Encounters Date Type Specialty Care Team Description 01/19/2022 Office Visit Radiation Oncology Clover Covarrubias APRN [facility] ER RADIATION ONCOLO [place], [place] [address] (Wo rk) 12/04/2022 Hospital Encounter Gastroenterology Real Jones MD [facility] GASTROENTEROLOGY DEPT. [place], [place] [address] (Wo rk) Scheduled Procedures Name Priority Associated Diagnoses Date/Time COLONOSCOPY, DIAGNOSTIC 10 yr f/up documented as of this encounter Visit Diagnoses Not on filedocumented in this encounter Care Teams Waiter/Waitress Head Relationship Specialty Start Date End Date Marin Patton MD PCP - General 02/15/10 01/25/17 documented as of this encounter
--- OUTSIDE RECORDS SUMMARY | 2021-12-30 01:34 | XMS_ITS | Encounter Summary ---
:1955 Author Organization [facility] [place] [address] Care Team Providers Name Role Phone Marin Patton MD Primary Care Provider Reason for Visit Auth/Cert Specialty Diagnoses / Procedures Referred By Contact Refer red To Contact Diagnoses GI bleed GI BLEED Melena IV SED per [place] Procedures EGD, UPPER GI ENDOSCOPY Referral ID Status Reason Start Date Expiration Date Visits Requ ested Visits Authorized [id number] 1 1 Encounter Details Date Type Department Care Team Description 11/29/2016 Surgery Gastroenterology at [facility] Kaiser Doyle UPPER GASTROINTESTINAL [facility] Emergency Department Alexsandra Dickinson MD ENDOSCOPY,[place] [address] [facility] SINGLE OR MULTIPLE ([facility] [phone] 2Scot) GASTROENTEROLOGY [place], [place] [address] Social History Tobacco Use Types [...] Sign Reading Time Taken Comments Blood Pressure 121/75 11/29/2016 11:30 AM EDT Pulse 60 11/29/2016 11:30 AM EDT Temperature 37 ??C (98.6 ??F) 11/29/2016 7:32 AM EDT Respiratory Rate 10 11/29/2016 11:30 AM EDT Oxygen Saturation 96% 11/29/2016 11:30 AM EDT Inhaled Oxygen Concentration - - Weight - - Height - - Body Mass Index - - documented in this encounter Discharge Summaries El Dinh MD - 11/30/2016 11:33 AM EDT Discharge Summary Patient Name: Amanuel Hussein Patient Age: 61 y.o. Language: Gibraltarian Race: Ethnicity: Not nor Admit date: 11/28/2016 Discharge date and time: 11/30/16 Afternoon Attending Physician: El Dinh MD Discharge Physician: Dr. El Dinh Follow-up Recommendations for Providers: ?? Borderline hypertensive during admission, recommend following as outpatient ?? FYI appointments for barium swallow and then thoracic surgery for evaluation of hiatal hernia on 12/08/[address] Ortiz at [facility] Inpatient Provider Contact Information: For questions regarding this document or issues relating to this hospitalization on the Medical Service, please contact your inpatient physician through the [facility] Sand Sifter . Issues after hours and on weekends [...] presents with melena. He was seen at [facility] on 11/26 after an episode of melena. [...] pain, nausea, or vomiting. He returned to [facility] today and repeat Hgb was 12. He was subsequently transferred to [facility] for possible EGD. Hospital Course: [...] ?? Follow up with thoracic surgery at [facility] for possible repair of hiatal [...] at 11 AM Fluoroscopy (Barium swallow) , [facility] Sunday12/08/[address] Ortiz, Thoracic Surgery 3K, [facility] Sun12/13/16 at 8:[address] Britt, PCP [place] Your Inpatient Doctor(s) at [facility]: Dr. El Forde, sub-epidemiology internship General Instructions None Future Appointments and Orders Future Appointments Provider Department Dept Phone 12/08/2016 11:00 AM [facility] DX ROOM 8 XRay at [place] [phone] Please do not eat after midnight. 12/08/2016 2:00 PM Al Ortiz MD Thoracic Surgery at [place] [phone] Future Orders Complete By Expires XR Fluoro Barium Swallow [[id number] Custom] 12/08/2016 06/09/2017 Process Instructions: Scheduling Instructions: Questions: Where will study be performed?: [facility] Reason for exam and clinical history: 61 M with hiatal hernia seen on EGD and bleeding ulcers from it- pls evaluate Other pertinent information: Area to be examined: Stat read required?: Date of injury if applicable: Requested Time: Referral to Thoracic Surgery [[id number] Custom] As directed Process Instructions: If no progress note charted, please enter Clinical details in comments. Scheduling Instructions: Questions: My question or request is: 61 M with hiatal hernia and GIB 2/2 ulcer felt to be irritation from hiatal hernia- ?surgical repair Discharge References/Attachments HIATAL HERNIA (MAURITIAN) GI TRACT: UPPER: ANATOMY SKETCH (MAURITIAN) documented in this encounter Discharge Instructions Patient [...] ?? Follow up with thoracic surgery at [facility] for possible repair of hiatal [...] at 11 AM Fluoroscopy (Barium swallow) 3T, [facility] Sunday12/08/[address] Ortiz, Thoracic Surgery 3K, [facility] 12/13/16 at 8:[address] Britt, PCP [place] Your Inpatient Doctor(s) at [facility]: Dr. El Forde, sub-epidemiology internship AttachmentsThe following attachments cannot be sent through Care Everywhere. HIATAL HERNIA (MAURITIAN)GI TRACT: UPPER: ANATOMY SKETCH (MAURITIAN)documented in this encounter Progress Notes El Dinh [...] & Hepatology Progress Note Amanuel Hussein 1955 [id number] Date of Admission: 11/28/2016 ( Hospital Day 0 days ) Attg: Zaheer Meyer, ID: 61-year-old man with prior GI bleeds [...] EMR. Recent pertinent labs include: Recent Labs 11/30/1661811/29/160 11/28/162030 WBC 6.3 5.8 7.2 HGB 13.0* 11.8* 12.4* HCT 34.9* 33.3* 34.3* PLATELET 267 230 227 NEUTROABS 3.83 3.62 4.33 Recent Labs 11/30/16 0611/29/160 11/28/162030 NA 139 139 142 K 3.8 3.9 3.9 CL 103 104 104 CO2 23 24 25 BUN 9* 12 13 CREATININE 0.87 0.96 0.88 Recent Labs 11/30/16 0619 11/29/16 0450 11/28/162030 CALCIUM 8.6 8.3* 8.6 Recent Labs [...] with them as documented. Kaiser Doyle MD [facility] Gastroenterology Stephani Resendiz RN - [...] (11/29/16 0747) PRN: fentaNYL (PF), midazolam (PF), [MAY Hold] sodium chloride 0.9 %, [MAY Hold] lidocaine, [MAY Hold] acetaminophen, [MAY Hold] ondansetron OR [MAY Hold] ondansetron Interval History: admitted for persistent [...] in and out of the ER at [facility] over the last few days, and therefore [...] bleeding has stopped Team Pager(MD Coverage 16/10): #[phone] PCP: Marin Patton MD [phone] Attestation: OBS status EL DINH MD 11/29/2016 Elana Patiño RN - 11/28/2016 4:40 PM EDT Victoriano arrived to the unit around 1600. AAOx4. VSApolonia PEREZ paged for assessment. Lungs clear. Bowels actvie. Voiding adequate amounts. Pulses palpable. SBA. Left #18and Right #16 PIV. Pt denies pain and nausea. Will continue to monitor. Report received from [facility] RNRosa. documented in this encounter H&P Notes Kaiser [...] the patient. Consent signed. Kaiser Doyle MD [facility] Gastroenterology Luis Fernando Sotelo MD - 11/28/2016 6:10 PM EDT Inpatient Hospital Medicine - Admission Note Problem List: Active Hospital Problems Diagnosis ??? GI bleed Resolved Hospital Problems Diagnosis Date Resolved No resolved problems to display. Active Non-Hospital Problems Diagnosis ??? Esophageal ulcer ??? Hematemesis ??? Melena ID: 61 y.o. Male presents to [facility] with melena History of Present Illness: HPI 61 year old man with h/o GI bleed 2/2 esophageal ulcers who presents with melena. He was seen at [facility] on 11/26 after an episode of melena. [...] pain, nausea, or vomiting. He returned to [facility] today and repeat Hgb was 12. He was subsequently transferred to [facility] for possible EGD. Review of [...] DIAGNOSTIC performed by Real Jones MD at [facility] ENDOSCOPY ??? UPPER GI ENDOSCOPY, BIOPSY 12/04/2012 UPPER GASTROINTESTINAL ENDOSCOPY,WITH BIOPSY SINGLE OR MULTIPLE performed by Real Jones MD at [facility] ENDOSCOPY Prior To Admission Medications: Prescriptions [...] presents with melena. He was seen at [facility] on 11/26 after an episode of melena. [...] pain, nausea, or vomiting. He returned to [facility] today and repeat Hgb was 12. He was subsequently transferred to [facility] for possible EGD. # UGIB [...] Primary Care Physician and/or Referring Physician. Luis Fernando Sotelo MD 11/28/2016 IPI Certification I certify that I am a D-H credentialed attending provider with admitting privileges and that the patient meets or has met medical necessity to require an inpatient IPI level of care meeting a minimum of two midnights or is on the [facility] inpatient only procedure list (status C) due to: GI bleed requiring close monitoring of Hgb and urgent EGD documented in this encounter Miscellaneous Notes Plan of Care - Stephani Resendiz RN - 11/30/2016 12:02 PM EDT Problem: Patient Care Overview Goal: Plan of Care Review Outcome: Outcome (s) achieved Date Met: 11/30/16 11/30/16 2608 Plan of Care Review Progress improving Coping/Psychosocial [...] ADLs]: none Surveillance [continuous indirect monitoring]: Call cohen masimo, hourly rounds Patient-specific fall prevention interventions for [...] and ADLs]: Independent Surveillance [continuous indirect monitoring]: leola Santana, sue Costello CPG GOAL OUTCOME EVALUATION: Initial Assessments - [...] Bed/bath second floor. Drive. 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 [address] [facility] [address] Social & Family Supports/Community Resources: Nata Extended Emergency Contact Information Primary Emergency Contact: Nata Hussein Relation: Spouse Behavioral Health History: Denies Substance Use/Abuse: Denies smoking, alcohol use, and/or illicit drug use Other Pertinent/Service Specific Information: None Health/Prescription Coverage: Payor: GLORIA MARTIN / Plan: GLORIA MARTIN / Product Type: *No Product type* / Secondary Insurance: None Prescription Coverage: see above Preferred Pharmacy: Please [facility] [address] [place], [place] - [address] [facility] [phone] [place] [address] Other: None Primary Care Provider: Dr. Zeynep MD [phone] Patient/Caregiver Goals of Treatment: Safe dc plan [...] planning. HENRI Fernandez, MS, BSN, RN, Pager [phone] Office of Care Management Med Student Progress Note - Brittany Forde - 11/29/2016 8:23 AM EDT Inpatient Hospital Medicine Progress Note Patient info: Name: Amanuel Hussein : 1955 PCP: Marin Patton MD PCP phone number: [phone] Date of Admission: 11/28/2016 ( Hospital Day 1 day ) Responsible Attending:aZheer Meyer DO Hospital Problem List: Active Hospital Problems Diagnosis ??? GI bleed Resolved Hospital Problems Diagnosis Date Resolved No resolved problems to display. ID: Mr Hussein is a 61 year old gentleman with history of esophageal ulcers (currently on nexium 40 once daily) presenting with GI bleed 24 Hour Events: - Transferred from [facility] d/t continued melena, and increased SOB, dizziness, and Hgb drop from 14 --> 12 (EGD could only be performed there) - Hgb trended: 12.4 --> 11.8 - LR at 75 cc/hr - GI saw, EGD at 11 AM S: SOB improved, no dizziness. No chest pain, N/V, has not had bowel movement since arrived at [facility] O: Vitals: Last value Range last 24 hrs Temperature Temp: 37 ??C (98.6 ??F) Temp: [36.7 ??C (98.1 ??F)-37.4 ??C (99.3 ??F)] Heart Rate Heart Rate: -- Blood Pressure BP: 134/85 BP: (134-147)/(85-92) Respiratory Rate Resp: 16 Resp: [16-18] SpO2 ORA SpO2: 96 % SpO2: [96 %-98 %] Intake/Output Summary (Last 24 hours) at 11/29/16 08 Last data filed at 11/29/16 0654 Gross [...] pending course Brittany Forde MS4 Pager - [phone] 11/29/2016 Plan of Care - Lizbeth Yanez [...] & Hepatology Inpatient Consultation Amanuel Hussein 1955 [id number] PCP: Marin Patton MD Date of Admission: 11/28/2016 ( Hospital Day 0 days ) Attg: Zaheer Meyer DO Source: patient Reason for Consult: melena History of Present Illness: 61-year-old healthy man with recurrent esophageal ulcers, transferred from [facility] with several days of melena and Hgb [...] DIAGNOSTIC performed by Real Jones MD at [facility] ENDOSCOPY ??? UPPER GI ENDOSCOPY, BIOPSY 12/04/2012 UPPER GASTROINTESTINAL ENDOSCOPY,WITH BIOPSY SINGLE OR MULTIPLE performed by Real Jones MD at [facility] ENDOSCOPY Medications Scheduled Meds: ??? sodium chloride 0.9 % 5 mL Intravenous BID ??? pantoprazole 40 mg Intravenous BID Continuous Infusions: ??? lactated Ringers 75 mL/hr (11/28/16 1759) PRN Meds:.sodium chloride 0.9 %, lidocaine, acetaminophen, [...] ulcer. Duodenum 2nd portion~negative. Colonoscopy 12/04/12 at [facility] Impression: ? - The examined [...] with them as documented. Kaiser Doyle MD [facility] Gastroenterology documented in this encounter Plan of Treatment Upcoming Encounters Date Type Specialty Care Team Description 01/19/2022 Office Visit Radiation Oncology Clover Covarrubias APRN [facility] RADIATION ONCOLO GY [place], [place] [address] (Wo neelam) 12/04/2022 Hospital Encounter Gastroenterology Real Jones MD [facility] GASTROENTEROLOGY DEPT. [place], [place] [address] (Wo neelam) Scheduled Procedures Name [...] at 12/08/2016 11:46 AM El Dinh MD [facility] FLUORO ORDERABLES Differential, Automated (11/30/2016 6:19 AM EDT) P athologist Signature Neutrophils % 60.9 % [facility] LABOR[facility] Neutr Abs (ANC) 3.83 1.70 - [facility] 6.10 [facility] x10(3)/[facility] LABORATORY Lymphocytes % 26.1 % [facility] Lymphocytes Abs 1.6 0.9 - 3.2 [facility] x10(3)/[facility] LABORATORY Monocytes % 9.4 % [facility] Monocyte Abs 0.6 0.3 - 0.9 [facility] x10(3)/[facility] LABORATORY Eosinophils % 2.7 % [facility] Eosinophils Abs 0.2 0.0 - 0.4 [facility] x10(3)/[facility] LABORATORY Basophils % 0.6 % [facility] Basophils Abs 0.0 0.0 - 0.1 [facility] x10(3)/[facility] LABORATORY Immature Gran % 0.30 % [facility] Comment: Immature granulocytes(IG's)percentage an d absolute count will include metamyelocytes, myelocytes, and promyelo cytes. Blood smears from CBCs yielding IG's will be scanned manually for concor dance. If this scan disagrees with the automated IG or if promyelocytes are not ed, a manual differential will be performed. Malika Gran Abs 0.02 0.00 - 0.04 x10(3)/[facility] LABORATORY Specimen Anatomical Collection Method Collection Time Receive d Time (Source) Location / / Volume Laterality Blood specimen 11/30/2016 6:19 AM 017 6:54 (specimen) EDT AM EDT Resulting Agency Comment Spec In Lab Luis Fernando Sotelo MD HEMATOLOGY ORDERABLES Performing Organization Address City/State/[place] [address] (ABNORMAL) Hemogram (11/30/2016 6:19 AM EDT) Analysis Performed At Patho logist Time Signature WBC 6.3 4.0 - 9.5 [facility] x10(3)/[facility] LABORATORY RBC 3.85 (L) 4.58 - [facility] 5.54 [facility] x10(6)/[facility] LABORATORY Hemoglobin 13.0 (L) 13.7 - [facility] 16.5 gm/dL [facility] LABORATORY Hematocrit 34.9 (L) 40.5 - [facility] 48.5 % [facility]ORAT[facility] MCV 90.6 82.9 - [facility] fL [facility] MCH 33.8 (H) 27.5 - [facility] 32.1 pg [facility] LABORATORY MCHC 37.2 (H) 32.0 - [facility] MCINTYRE 35.7 gm/dL [facility] LABORATORY Platelets 267 145 - 357 [facility] x10(3)/[facility] LABORATORY RDWSD 38.4 36.0 - [place] MIGUELINA 45.0 [facility] LABORATORY RDWCV 11.7 11.4 - [facility] MIGUELINA 13.8 % [facility] LABORATORY MPV 8.6 7.6 - 12.9 [facility] LABORATORY nRBC % Auto 0.0 % [facility]OR[facility] nRBC Abs Auto 0.000 0.000 - [place] MIGUELINA 0.000 [facility] x10(3)/[facility] LABORATORY Specimen Anatomical Collection Method Collection Time Receive d Time (Source) Location / / Volume Laterality Blood specimen 11/30/2016 6:19 AM 017 6:54 (specimen) EDT AM EDT Resulting Agency Comment Spec In Lab Luis Fernando Sotelo MD HEMATOLOGY ORDERABLES Performing Organization Address City/State/[place] [address] (ABNORMAL) Basic Metabolic Panel (non-fasting) (11/30/2016 6:19 AM EDT) athologist Signature Glucose Lvl 109 65 - 199 [facility] mg/dL [facility] Comment: Diabetes: >=200 mg/dL plus symp toms BUN 9 (L) 10 - 20 mg/dL [facility] Creatinine 0.87 0.80 - 1.50 mg/dL [facility] Comment: Please note that the pediatric reference intervals supplied above were not validated at [facility]. Results from pediatri c patients should be interpreted in conjunction to the patient's age, height and muscle mass. Sodium 139 135 - 145 mmol/L [facility] [...] estions. Chloride 103 98 - 107 mmol/L [facility] CO2 23 22 - 31 mmol/L [facility] Anion Gap 13 5 - 15 mmol/L [facility] Calcium 8.6 8.5 - 10.5 mg/dL [facility] [...] the following links into your internet browser. [email or web address] Specimen Anatomical Collection Method Collection Time Receive d Time (Source) Location / / Volume Laterality Blood specimen 11/30/2016 6:19 AM 017 6:55 (specimen) EDT AM EDT Resulting Agency Comment Spec In Lab Luis Fernando Sotelo MD CHEMISTRY ORDERABLES Performing Organization Address City/State/ZIP Code Phon e Number [place] [phone] Surgical Pathology Report (11/29/2016 12:21 PM EDT) Component Value Ref Test Analysis Performed At [facility] gist Range Method Time Signature Surgical [id number] ? Location: [address] [place] [address] Report The signing pathologist has (i) examined the relevant preparation(s) for the [facility] specimen(s) and (ii) rendered or confirmed the [...] MD PATHOLOGY/CYTOLOGY ORDERABLE S Performing Organization Address City/[facility]/[place] [address] Specimen to Pathology (surgical or derm) (11/29/2016 12:21 PM EDT) Specimen Anatomical Collection Method Collection Time Receive d Time (Source) Location / / Volume Laterality AP Specimen 11/29/2016 12:21 11/29/2016 PM EDT 12:21 PM EDT Narrative [facility] - 11/29/2016 12:21 PM EDT Specimen requisition ordered. ??Separate Pathology report to follow Kaiser Doyle MD PATHOLOGY/CYTOLOGY ORDERABLE S Performing Organization Address City/[facility]/ZIP [facility] [place] [place] [address] Differential, Automated (11/29/2016 4:50 AM EDT) P athologist Signature Neutrophils % 62.0 % [facility] Neutr Abs (ANC) 3.62 1.70 - [facility] 6.10 [facility] x10(3)/[facility] LABORATORY Lymphocytes % 25.9 % [facility] Lymphocytes Abs 1.5 0.9 - 3.2 [facility] x10(3)/[facility] LABORATORY Monocytes % 8.4 % [facility] Monocyte Abs 0.5 0.3 - 0.9 [facility] x10(3)/[facility] LABORATORY Eosinophils % 2.7 % [facility] Eosinophils Abs 0.2 0.0 - 0.4 [facility] x10(3)/[facility] LABORATORY Basophils % 0.7 % [facility] Basophils Abs 0.0 0.0 - 0.1 [facility] x10(3)/[facility] LABORATORY Immature Gran % 0.30 % [facility] Comment: Immature granulocytes(IG's)percentage an d absolute count will include metamyelocytes, myelocytes, and promyelo cytes. Blood smears from CBCs yielding IG's will be scanned manually for concor dance. If this scan disagrees with the automated IG or if promyelocytes are not ed, a manual differential will be performed. Malika Gran Abs 0.02 0.00 - 0.04 x10(3)/[facility] LABORATORY Specimen Anatomical Collection Method Collection Time Receive d Time (Source) Location / / Volume Laterality Blood specimen 11/29/2016 4:50 AM 017 5:22 (specimen) EDT AM EDT Resulting Agency Comment Spec In Lab Luis Fernando Sotelo MD HEMATOLOGY ORDERABLES Performing Organization Address City/State/ZIP Code Phon e Number [place] [phone] (ABNORMAL) Hemogram (11/29/2016 4:50 AM EDT) Analysis Performed At Patho logist Time Signature WBC 5.8 4.0 - 9.5 [facility] x10(3)/[facility] LABORATORY RBC 3.59 (L) 4.58 - [facility] 5.54 [facility] x10(6)/[facility] LABORATORY Hemoglobin 11.8 (L) 13.7 - [facility] 16.5 gm/dL [facility] LABORATORY Hematocrit 33.3 (L) 40.5 - [facility] 48.5 % [facility] LABORATORY MCV 92.8 82.9 - [facility] 93.1 fL [facility] LABORATORY MCH 32.9 (H) 27.5 - [facility] MIGUELINA 32.1 pg [facility] LABORATORY MCHC 35.4 32.0 - [facility] 35.[facility] gm/dL [facility] LABORATORY Platelets 230 145 - 357 [facility] x10(3)/[facility] LABORATORY RDWSD 39.4 36.0 - [facility] 45.0 [facility] LABORATORY RDWCV 11.5 11.4 - [facility] 13.8 % [facility] LABORATORY MPV 8.5 7.6 - 12.9 [facility] LABORATORY nRBC % Auto 0.0 % [facility] nRBC Abs Auto 0.000 0.000 - [facility] 0.000 [facility] x10(3)/[facility] LABORATORY Specimen Anatomical Collection Method Collection Time Receive d Time (Source) Location / / Volume Laterality Blood specimen 11/29/2016 4:50 AM 017 5:22 (specimen) EDT AM EDT Resulting Agency Comment Spec In Lab Luis Fernando Sotelo MD HEMATOLOGY ORDERABLES Performing Organization Address City/State/[place] [address] (ABNORMAL) Basic Metabolic Panel (non-fasting) (11/29/2016 4:50 AM EDT) athologist Signature Glucose Lvl 109 65 - 199 [facility] mg/dL [facility] Comment: Diabetes: >=200 mg/dL plus symp toms BUN 12 10 - 20 mg/dL [facility] Creatinine 0.96 0.80 - 1.50 mg/dL [facility] Comment: Please note that the pediatric reference intervals supplied above were not validated at [facility]. Results from pediatri c patients should be interpreted in conjunction to the patient's age, height and muscle mass. Sodium 139 135 - 145 mmol/L [facility] Potassium 3.9 3.5 - 5.0 mmol/L [facility] Comment: Please note: ??Patients with WBC >100,00 0 may have falsely elevated Potassium levels. ??For accurate Potassium quantif ication in these patients send serum separator tube (gold top) for subsequent determinations. ??Contact the Clinical Chemistry Laboratory if there are any qu estions. Chloride 104 98 - 107 mmol/L [facility] CO2 24 22 - 31 mmol/L [facility] Anion Gap 11 5 - 15 mmol/L [facility] Calcium 8.3 (L) 8.5 - 10.5 mg/dL [facility] [...] the following links into your internet browser. [email or web address] Specimen Anatomical Collection Method Collection Time Receive d Time (Source) Location / / Volume Laterality Blood specimen 11/29/2016 4:50 AM 017 5:22 (specimen) EDT AM EDT Resulting Agency Comment Spec In Lab Luis Fernando Sotelo MD CHEMISTRY ORDERABLES Performing Organization Address City/State/ZIP Code Phon e Number [place] [phone] XR Chest PA or [...] P athologist Signature Neutrophils % 59.9 % [facility] Neutr Abs (ANC) 4.33 1.70 - [facility] 6.10 [facility] x10(3)/[facility] LABORATORY Lymphocytes % 30.1 % [facility] Lymphocytes Abs 2.2 0.9 - 3.2 [facility] x10(3)/[facility] LABORATORY Monocytes % 7.1 % [facility] Monocyte Abs 0.5 0.3 - 0.9 [facility] x10(3)/[facility] LABORATORY Eosinophils % 2.1 % [facility] Eosinophils Abs 0.2 0.0 - 0.4 [facility] x10(3)/[facility] LABORATORY Basophils % 0.7 % [facility] Basophils Abs 0.0 0.0 - 0.1 [facility] x10(3)/[facility] LABORATORY Immature Gran % 0.10 % [facility] Comment: Immature granulocytes(IG's)percentage an d absolute count will include metamyelocytes, myelocytes, and promyelo cytes. Blood smears from CBCs yielding IG's will be scanned manually for concor dance. If this scan disagrees with the automated IG or if promyelocytes are not ed, a manual differential will be performed. Malika Gran Abs 0.01 0.00 - 0.04 x10(3)/[facility] Y [facility] Specimen Anatomical Collection Method Collection Time Receive d Time (Source) Location / / Volume Laterality Blood specimen 11/28/2016 8:31 PM 017 8:35 (specimen) EDT PM EDT Resulting Agency Comment Spec In Lab Luis Fernando Sotelo MD HEMATOLOGY ORDERABLES Performing Organization Address City/State/[place] [address] (ABNORMAL) Hemogram (11/28/2016 8:31 PM EDT) Analysis Performed At Patho logist Time Signature WBC 7.2 4.0 - 9.5 [facility] x10(3)/[facility] LABORATORY RBC 3.76 (L) 4.58 - [place] 5.54 [facility] x10(6)/[facility]ORATORY Hemoglobin 12.4 (L[facility] 13.7 - [facility] 16[facility] gm/dL [facility] Hematocrit 34.3 (L) 40.5 - [facility] 48.5 % [facility] MCV 91.2 82.9 - [facility] 93.1 [facility]ORATORY MCH 33.0 (H) 27.5 - [facility] 32.1 pg [facility] MCHC 36.2 (H) 32.0 - [facility] gm/dL [facility] Platelets 227 145 - 357 [facility] x10(3)/[facility] LABORATORY RDWSD 39.5 36.0 - [facility] 45[facility]0 [facility]ATORY RDWCV 11.8 11.4 - [facility] 13.8 % [facility] MPV 8.4 7.6 - 12.9 [facility] LABORATORY nRBC % Auto 0.0 % [facility] nRBC Abs Auto 0.000 0.000 - [facility] 0.000 [facility] x10(3)/[facility] Specimen Anatomical Collection Method Collection Time Receive d Time (Source) Location / / Volume Laterality Blood specimen 11/28/2016 8:31 PM 017 8:35 (specimen) EDT PM EDT Resulting Agency Comment Spec In Lab Luis Fernando Sotelo MD HEMATOLOGY ORDERABLES Performing Organization Address City/State/[place] [address] Prothrombin Time (11/28/2016 8:31 PM EDT) P athologist Signature PT 13.7 12.0 - 15.0 [facility]ORY Comment: An INR <2.0 indicates [...] linical circumstances. INR 1.0 0.9 - 1.1 [facility] Specimen Anatomical Collection Method Collection Time Receive d Time (Source) Location / / Volume Laterality Blood specimen 11/28/2016 8:31 PM 017 8:35 (specimen) EDT PM EDT Resulting Agency Comment Spec In Lab Luis Fernando Sotelo MD HEMATOLOGY ORDERABLES Performing Organization Address City/[facility]/ZIP Code Phon e Number [address] (ABNORMAL) Hepatic Function Panel (11/28/2016 8:31 PM EDT) P athologist Signature Total Protein 6.6 6.1 - 8.0 [facility]IG[facility] gm/dL [facility] Albumin 3.7 3.2 - 5.2 [facility] gm/dL [facility] AST 53 (H) 0 - 39 [facility] unit/L [facility] ALT 59 (H) 0 - 55 [facility] unit/L [facility] Alk Phos 50 40 - 120 [facility] unit/L [facility] Total 0.9 0.2 - 1.3 [place] Bilirubin mg/dL [facility] Bili, Direct 0.2 0.0 - 0.3 [facility] mg/dL [facility] Specimen Anatomical Collection Method Collection Time Receive d Time (Source) Location / / Volume Laterality Blood specimen 11/28/2016 8:31 PM 017 8:35 (specimen) EDT PM EDT Resulting Agency Comment Spec In Lab Luis Fernando Sotelo MD CHEMISTRY ORDERABLES Performing Organization Address City/[facility]/[place] [address] Basic Metabolic Panel (non-fasting) (11/28/2016 8:31 PM EDT) P athologist Signature Glucose Lvl 101 65 - 199 [facility]UEL[place] mg/dL [facility] Comment: Diabetes: >=200 mg/dL plus symp toms BUN 13 10 - 20 mg/dL [facility] Creatinine 0.88 0.80 - 1.50 mg/dL [facility] Comment: Please note that the pediatric reference intervals supplied above were not validated at [facility]. Results from pediatri c patients should be interpreted in conjunction to the patient's age, height and muscle mass. Sodium 142 135 - 145 mmol/L [facility] Potassium 3.9 3.5 - 5.0 mmol/L [facility] Comment: Please note: ??Patients with WBC >100,00 0 may have falsely elevated Potassium levels. ??For accurate Potassium quantif ication in these patients send serum separator tube (gold top) for subsequent determinations. ??Contact the Clinical Chemistry Laboratory if there are any qu estions. Chloride 104 98 - 107 mmol/L [facility] CO2 25 22 - 31 mmol/L [facility] Anion Gap 13 5 - 15 mmol/L [facility] Calcium 8.6 8.5 - 10.5 mg/dL [facility] [...] the following links into your internet browser. [email or web address] Specimen Anatomical Collection Method Collection Time Receive d Time (Source) Location / / Volume Laterality Blood specimen 11/28/2016 8:31 PM 017 8:35 (specimen) EDT PM EDT Resulting Agency Comment Spec In Lab Luis Fernando Sotelo MD CHEMISTRY ORDERABLES Performing Organization Address City/State/[place] [address] EKG 12 Lead (11/28/2016 6:28 PM EDT) Component Value Ref Range Test Analysis Performed Pathologis t Method Time At Signature Ventricular rate 61 BPM MUSE SYSTEM Atrial Rate 61 BPM MUSE SYSTEM P-R Interval 210 ms MUSE SYSTEM QRS Duration 84 ms MUSE SYSTEM Q-T Interval 440 ms MUSE SYSTEM QTC Calculated 442 ms MUSE SYSTEM (Bezet) Calculated P [place] 22 degrees MUSE SYSTEM Calculated R [place] -6 degrees MUSE SYSTEM Calculated T [place] 23 degrees MUSE SYSTEM INTERPRETATION Sinus rhythm [...] SYSTEM documented in this encounter Visit Diagnoses Not on filedocumented in this encounter Admitting Diagnoses Diagnosis GI bleed Hemorrhage of gastrointestinal tract, un specified documented in this encounter Administered Medications Inactive Administered Medications - up to 3 most recent administrations Medication Order MAR Action Action Date Dose Rate Site fentaNYL 50 mcg/mL multi-dose Given 11/29/2016 11:50 AM EDT 25 m cg injection ONCE PRN, Starting on Sun11/29/16 at 1130, Until Claudia 11/30/16 at 1612, Intra-Operative (Intra-Procedure), Routine Given 11/29/2016 11:46 AM EDT 25 mcg Given 11/29/2016 11:39 AM EDT 25 mcg lactated Ringers infusion New Bag 11/29/2016 7:47 AM EDT 75 mL/hr 75 mL/hr 75 mL/hr, Intravenous, CONTINUOUS, Starting on Sun11/28/16 at 1730, Until Sun11/29/16 at 1729 New Bag 11/28/2016 5:59 PM EDT 75 mL/hr 75 mL/hr midazolam (PF) (VERSED) 1 mg/mL multi-dose Given 11/29/2016 11:3 9 AM EDT 1 mg injection ONCE PRN, Starting on Sun11/29/16 at 1130, Until Claudia 11/30/16 at 1612, Intra-Operative (Intra-Procedure), Routine Given 11/29/2016 11:36 AM EDT 1 mg Given 11/29/2016 11:30 AM EDT 2 mg ondansetron (ZOFRAN) injection 4 mg 4 mg, Intravenous, EVERY 8 HOURS PRN, Starting on 11/28/16 at 1714, Until Claudia 11/30/16 at 1612, Nausea, May repeat times one in 30 minutes if ineffective. If multiple antiemetics are ordered, give ondansetron fir st. ondansetron (ZOFRAN) tablet 4 mg 4 mg, Oral, EVERY 8 HOURS PRN, Starting on 11/28/16 at 1714, Until Claudia 11/30/16 at [...] shown in EDT. Scheduled Medication Order 11/28/2016 11/29/2016 11/30/2016 pantoprazole (PROTONIX) injection 40 mg 2038 (Given - Provider: Lizbeth Yanez RN) 0915 (Given - Provider: Stephani Resendiz RN)1058 (MAR Hold - Provider: Admin Adt - Reason: Transfer to a Procedural area)1320 (MAR Unhold - Provider: Admin Adt)2138 (Given - Provider: Elana Patiño, RN) 0922 (Given - Provider: Stephani Resendiz, RN) 40 mg, Intravenous, 2 TIMES DAILY, First dose on Sun11/28/16 at 2100, Until Discontinued sodium chloride 0.9 % flush 5 mL 2040 (Given - Provide r: Lizbeth Yanez RN) 0915 (Given - Provider: Stephani Resendiz, ANA)1058 ([facility] Hold - Provider: Admin Adt - Reason: Transfer to a Procedural area)1320 ([facility] Unhold - Provider: Admin Adt)213 (Given - Provider: Elana Patiño, ANA) 0922 (Given - Provider: Stephani Resendiz, ANA) 5 mL, Intravenous, 2 TIMES DAILY, First dose on Sun11/28/16 at 2100, Until Discontinued, Routine Continuous Medication Order 11/28/2016 11/29/2016 11/30/2016 lactated Ringers infusion 1759 (New Bag - Provider: Clover Lucero RN) 0747 (New Bag - Provider: Stephani Resendiz RN)1058 ([facility] Hold - Provider: Admin Adt - Reason: Transfer to a Procedural area)1320 ([facility] Unhold - Provider: Admin Adt) 75 mL/hr, at 75 mL/hr, Intravenous, CONT INUOUS, Starting Sun11/28/16 at 1730, Until Sun11/29/16 at 1729 PRN Medication Order 11/28/2016 11/29/2016 11/30/2016 acetaminophen (TYLENOL) tablet 650 mg 10 58 ([facility] Hold - Provider: Admin Adt - Reason: Transfer to a Procedural area)1320 ([facility] Unhold - Provider: Admin Adt) 650 mg, [...] Fiordaliza Knutson RN)1146 (Given - Provider: Fiordaliza Knutson RN)1150 (Given - Provider: Fiordaliza Knutson RN) ONCE PRN, Starting Sun11/29/16 at 1130, U ntil Claudia 11/30/16 at 1612, Intra-Operative (Intra-Procedure), Routine lidocaine (XYLOCAINE) 10 mg/mL (1 %) injection 3 mg 1058 ([facility] Hold - Provider: Admin Adt - Reason: Transfer to a Procedural area)1320 ([facility] Unhold - Provider: Admin Adt) 3 mg (0.3 mL), Subcutaneous, ONCE PRN, 1 dose, Starting e 11/28/16 at 1714, Until Claudia 11/30/16 [...] (ZOFRAN) injection 4 mg(Linked Group 1) 1058 ([facility] Hold - Provider: Admin Adt - Reason: Transfer to a Procedural area)1320 ([facility] Unhold - Provider: Admin Adt) 4 mg, Intravenous, EVERY 8 HOURS PRN, St arting Sun11/28/16 at 1714, Until Claudia 11/30/16 at 1612, Nausea, May repeat times one in 30 minutes if ineffective. If multiple antiemetics are ordered, give ondansetron first. ondansetron (ZOFRAN) tablet 4 mg(Linked Group 1) 1058 ([facility] Hold - Provider: Admin Adt - Reason: Transfer to a Procedural area)1320 ([facility] Unhold - Provider: Admin Adt) 4 mg, Oral, EVERY 8 HOURS PRN, Starting e 11/28/16 at 1714, Until Claudia 11/30/16 [...] area)1320 (MAY Unhold - Provider: Admin Adt) 5-20 mL, Intravenous, EVERY 1 MIN PRN, S tarting 11/28/16 at 1714, Until Claudia 11/30/16 at [...] Intravenous, EVERY 8 [address]RS PRN, St arting 11/28/16 at 1714, Until Claudia 11/30/16 at 1612, Nausea
May repeat times one in 30 minutes if ineffective. If multiple antiemetics are ordered, give ondansetron first.
documented in this encounter Care Teams [employer] Worker Relationship Specialty Start Date End Date Marin Patton MD PCP - General 02/15/10 01/25/17 documented as of this encounter
--- OUTSIDE RECORDS SUMMARY | 2021-12-30 01:34 | XMS_ITS | Encounter Summary ---
:1955 Author Organization [place] [address] Care Team Providers Name Role Phone Marin Patton MD Primary Care Provider Encounter Details Date Type Department Care Team Description 12/04/2012 Hospital Encounter Gastroenterology at [facility] Jessy Nobles, Hematemesis; [facility] Alexsandra Hendrickson; [place] [address] [facility] Esophageal ulcer [phone] [place] [address] Social History Tobacco Use Types Packs/Day Years [...] you need to be checked. 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 [...] not get better as expected. Sunday-Sunday Clinic [phone] 8a-5p Same Day Endo [phone] 7a-8p Otherwise contact [phone] and ask to speak to the finance attorney mobile web application developer Jing Noland RN [phone] if any problems with willow machine operator Follow-up care is a johnson part of [...] Visit Radiation Oncology Clover Covarrubias APRN [facility] RADIATION [place], [place] [address] (Wo rk) 12/04/2022 Hospital Encounter Gastroenterology Jessy Nobles MD [facility] GASTROENTEROLOGY DEPT. [place], [place] [address] (Wo rk) Scheduled Procedures Name [...] Analysis Performed At [facility] gist Range Method Time Signature Surgical CERNER Pathology ? [facility] Report ? Provider: ?? JESSY NOBLES ? Pt. Name: ? ? ROHITFRANSISCO ? Acc #: ?[id number] ?Pt. MRN: ?[id number] ? Col Date: ?? 3 ? /Sex: [...] ? A - Labeled/Fixative: Stomach, formalin. ? [facility] ? Provider: ?? JESSY NOBLES ? Pt. Name: ? ? FRANSISCO BEE ? Acc #: ?[id number] ?Pt. MRN: ?[id number] ? Col Date: ?? 3 ? /Sex: [...] MD PATHOLOGY/CYTOLOGY ORDERABLE S Performing Organization Address [facility]/ZIP [facility] [place] [place] [address] CERNER MILLENNIUM Specimen to Pathology [...] MD PATHOLOGY/CYTOLOGY ORDERABLE S Performing Organization Address [facility] [place] [address] CERNER MILLENNIUM Specimen to Pathology [...] MD PATHOLOGY/CYTOLOGY ORDERABLE S Performing Organization Address [facility] [place] [address] CERNER MILLENNIUM COLONOSCOPY (12/04/2012 12:05 PM EDT) Component Value Ref Test Analysis Performed At Patholo gist Range Method Time Signature COLONOSCOPY [facility] PROVATION Endoscopy Patient Name: Fransisco Bee ? Procedure Date: 12/04/2012 12:05 PM ? Date of : 1955 ? Age: 57 ? Order #: [id number] ? Procedure: ? Colonoscopy Indications: ? Melena [...] withdrawn. Th e ? colonoscopy was performed janel lewis ? difficulty. The patient ernesto ated the [...] UPPER GI ENDOSCOPY (12/04/2012 12:05 PM EDT) [facility] Method Time Signature UPPER GI [facility] PROVATION ENDOSCOPY Endoscopy Patient Name: Fransisco Bee ? Procedure Date: 12/04/2012 12:05 PM ? Date of : 1955 ? Age: 57 ? Order #: [id number] ? Procedure: ? Upper GI endoscopy Indications: ? Heartburn, Melena; follow up for ? bleeding esophageal ulcer; ne ed to ? accurately place wireless pH capsule Providers: ? Jessy Nobles MD, Keena Borja RN, ? Enid Almaguer, Joel goldsmith Referring MD: ?Marin Patton MD Requesting Provider: [...] esophagus without bleeding documented in this encounter Active and Recently [...] Cece Sheikh RN)1251 (Given - Provider: Cece Sheikh, RN)1303 (Given - Provider: Keena Borja, ANA) ONCE PRN, Starting Sun12/04/12 at 1229, Until Sun12/04/12 at 1811, Pain, Intra- Operative (Intra-Procedure), Routine midazolam (VERSED) injection (CANCELED) 1229 (Given - Provider: Cece Sheikh RN)1232 (Given - Provider: Cece Sheikh RN)1251 (Given - Provider: Keena Borja RN) ONCE PRN, Starting Sun12/04/12 at 1229, Until Sun12/04/12 at 1811, Sleep, Intra- Operative (Intra-Procedure), Routine documented in this encounter Care Teams Pediatric Cardiologist Relationship Specialty Start Date End Date Marin Patton MD PCP - General 02/15/10 01/25/17 documented as of this encounter
--- OUTSIDE RECORDS SUMMARY | 2021-12-30 01:34 | XMS_ITS | Encounter Summary ---
:1955 Author Organization [facility] [place] [address] Care Team Providers Name Role Phone Marin Patton MD Primary Care Provider Reason for Referral Consultation (Routine) - Closed Specialty Diagnoses / Procedures Referred By Contact Refer red To Contact Gastroenterology Diagnoses Esophageal ulcer Melena Hematemesis H/o esophageal ulcer, hematemesis, melena despite PPI therapy. Catalina Iverson APRN [facility] Endoscopy 4t Procedures IMP ON meds; EGD, colo motility [facility] [place] [address] [place] [address] Phone: Referral ID Status Reason Start Date Expiration Date Visits V isits Requested Authorized [id number] Closed Test Only 10/16/2012 04/14/2013 1 1 Reason for Visit Reason Comments GI Problem Encounter Details Date Type Department Care Team Description 10/16/2012 Office Visit Gastroenterology at [facility] Catalina Iverson, Esophageal ulcer (Primary Dx ); [facility] Alexsandra Hendrickson; [place] [address] [facility] Hematemesis [phone] [place] [address] Social History Tobacco Use Types Packs/Day Years [...] Sign Reading Time Taken Comments Blood Pressure 136/78 10/16/2012 9:40 AM EDT Pulse 80 10/16/2012 9:40 AM EDT Temperature - - Respiratory Rate - - Oxygen Saturation - - Inhaled Oxygen Concentration - - Weight 94.8 kg (209 lb) 10/16/2012 9:40 AM EDT Height 175.3 cm (5' 9) 10/16/2012 9:40 AM EDT Body Mass Index 30.86 10/16/2012 9:40 AM EDT documented in this encounter Patient Instructions Patient InstructionsCatalina Iverson APRN - 10/16/2012 10:25 AM EDT 1. Upper endoscopy and colonoscopy 2. Impedance on medications on Nexium 40 mg twice a day 3. GERD diet and lifestyle modifications 4. Continue to avoid use of NSAID's 5. Lab work today and will call if results are abnormal 6. Will contact you with results of testing 7. Follow up as needed Catalina Iverson APRN [phone] documented in this encounter Progress Notes Catalina Iverson APRN - 10/16/2012 9:52 AM EDT Subjective: Patient ID: Amanuel Hussein is a 57 y.o. man who presents for further evaluation of his gastrointestinal symptoms at the request of Dr. Aleksander STEIN Comments: Mr Hussein is a pleasant 57 year old man who presents for consultation of his recurrent lower esophageal ulcers. He reports that first episode of hematemesis and melena occurred in 2003. He denies heartburn, regurgitation, acid taste, dysphagia or odynophagia. He was hospitalized for fu rther evaluation and required blood transfusions. He was told that cause of bleeding was due to esophageal per upper endoscopy. He admits to using NSAID's frequently for generalized aches and pains. Hewas placed on Prevacid 30 mg daily that was eventually increased to BID. Was eventually switched to Nexium 40 mg BID. He reports experiencing four more episodes of hematemesis and melena. He reports being compliant with taking Nexium BID but periodically forgets to take second dose. Has been avoiding NSAID's. Minimal to no alcohol intake. Most recent episode of hematemesis and melena was this past August 16, 2012 when he started to feel poorly and experienced an episode of vomiting coffee-ground and red tinged emesis. This was associated with feeling dizzy, weak and feeling poor in general but no abdominal pain or cramping. He was admitted at [facility]. On August 21, 2012, EGD performed that revealed raw superficial ulceration at 40 cm measuring approximately 5-6 mm. It washemostatic and no fibrin caps or visible vessel per report. The remainder of the esophagus was normal. 3 cm hiatal hernia (39-42 cm). Z-line irregular. Normal stomach. Normal duodenal bulb but whitish coating was noted on the duodenal tissue that was biopsied. Biopsies: esophagus lower at 40 cm~squamocolumnar mucosa with mild chronic inflammation but no ulcer. Duodenum 2nd portion~negative. *Lab work 08/19/2012: CBC~4.09, 13.6/39.5, 247; CMP wnl; PT 10.4 INR 1.0 *Colonoscopy performed in 2006 or 2007 that was normal per patient report (no reports available). He reports having a bowel movement daily. Stools are formed. Currently no blood in stool, rectal bleeding, rectal or anal pain. No straining or incomplete evacuation of stool. Denies ENT concerns, dysphagia, odynophagia, nausea, abdominal cramping or pain. No food allergies or intolerances. No NSAID's. Allergies: NKDA Medications: reviewed in edh Nexium 40 qd PMHx: H/o esophageal ulcer Surgical Hx: S/p left achilles tendon repair Dislocation R & L shoulder FMHx: no h/o colon or esophageal cancer; IBD; celiac disease; liver or pancreatic disease Review of Systems Constitutional: Negative. HENT: Negative. Respiratory: Negative. Cardiovascular: Negative. Gastrointestinal: See HPI Musculoskeletal: Negative. Skin: Negative. Neurological: Negative. Hematological: Negative. Psychiatric/Behavioral: Negative. Vital Signs: BP 136/78; P 80; Wt 209 lbs; Ht 5'9 Objective: Physical Exam Vitals reviewed. Constitutional: He is oriented to person, place, and time. He appears well- developed and well-nourished. No distress. HENT: Head: Normocephalic and atraumatic. Mouth/Throat: Oropharynx is clear and moist. No oropharyngeal exudate. Eyes: Conjunctivae normal and EOM are normal. Pupils are equal, round, and reactive to light. Right eye exhibits no discharge. Left eye exhibits no discharge. No scleral icterus. Neck: Normal range of motion. Neck supple. No JVD present. No tracheal deviation present. No thyromegaly present. Cardiovascular: Normal rate, regular rhythm, normal heart sounds and intact distal pulses. Exam reveals no gallop and no friction rub. No murmur heard. Pulmonary/Chest: Effort normal and breath sounds normal. No stridor. No respiratory distress. He hasno wheezes. He has no rales. He exhibits no tenderness. Abdominal: Soft. Bowel sounds are normal. He exhibits no distension and no mass. There is no tenderness. There is no rebound and no guarding. No hepatosplenomegaly. No succussion splash. Genitourinary: Rectal exam deferred. Lymphadenopathy: He has no cervical adenopathy. Neurological: He is alert and oriented to person, place, and time. No cranial nerve deficit. Skin: Skin is warm and dry. No rash noted. He is not diaphoretic. No erythema. No pallor. Psychiatric: He has a normal mood and affect. His behavior is normal. Judgment and thought content normal. Assessment and Plan: Mr. Hussein is a pleasant 57 year old man who presents for consultation of his recurrent esophageal ulcers despite taking Nexium 40 mg BID. Do question if there is another source for upper GI bleeding or Rick-Rushing Syndrome. Discussed the pathophysiology, diagnostic tests and treatment options of esophageal ulcers. Recommend repeat EGD to evaluate previously noted superficial ulceration, colonoscopy to r/o other etiologies and Impedance on Nexium 40 mg BID. If unrevealing then consider video capsule, consider fasting gastrin level after stopping PPI x 7 days to r/o Rick-Rushing syndrome. Consider referral to Dr. Padilla or Dr. Rojo for consideration of Manny fundoplication but await results for further management. This case was reviewed with Dr. Gurrola. I did my best to answer all of his questions. The following plan was formulated. Plan: 1. EGD with biopsies; consider video capsule if EGD unrevealing 2. Colonoscopy 3. Impedance on Nexium BID 4. Lab work today: CBC, BMP, TSH and will call if results are abnormal 5. Continue Nexium 40 mg BID on an empty stomach 30 minutes before breakfast and dinner 6. Avoid NSAID's 7. Await results for further management and will patient with results 8. Follow up prn Patient understands and is agreeable to the above plan. Written instructions provided. I spent a total of 52 minutes face to face with this patient; 36 minutes were spent counseling the patient in the medical problems described above. Thank you for the referral, Catalina Iverson APRN Section of Gastroenterology [place] [address] documented in this encounter Plan of Treatment Upcoming Encounters Date Type Specialty Care Team Description 01/19/2022 Office Visit Radiation Oncology Clover Covarrubias APRN [facility] RADIATION ON[place]ENNIFER [place], [place] [address] (Wo rk) 12/04/2022 Hospital Encounter Gastroenterology Real Jones MD [facility] GASTROENTEROLOGY DEPT. [place], [place] [address] (Wo rk) Scheduled Procedures Name Priority Associated Diagnoses Date/Time COLONOSCOPY, DIAGNOSTIC 10 yr f/up Scheduled Referrals Name Type Priority Associated Order Schedule Diagnoses Referral to Outpatient Routine Esophageal ulcer Ordered: Gastroenterology Referral Melena 10/16/2012 Hematemesis documented as of this encounter Procedures Procedure Name Priority Date/Time Associated Comments Diagnosis DIFFERENTIAL, Routine 10/16/2012 11:09 Results fo r this AUTOMATED AM EDT procedure are i n the results section. CBC (WITH DIFF) Routine 10/16/2012 11:09 Esophageal ulce r Results for this AM EDT Melena procedure are in Hematemesis the results section. TSH Routine 10/16/2012 11:09 Esophageal ulce r Results for this AM EDT Melena procedure are in Hematemesis the results section. BASIC METABOLIC PANEL Routine 10/16/2012 11:09 Esophagea l ulcer Results for this (NON-FASTING) AM EDT Melena procedure are in Hematemesis the results section. COLONOSCOPY Routine 10/16/2012 10:25 Esophageal ulce r AM EDT Melena Hematemesis documented in this encounter Results Differential, Automated (10/16/2012 11:09 AM EDT) P athologist Signature Neutrophils % 52.1 34.0 - CERNER 71.0 % MILLENNIUM Neutr Abs (ANC) 2.62 1.50 - CERNER 6.30 MILLENNIUM x10(3)/mcL Lymphocytes % 34.8 19.0 - CERNER 53.0 % MILLENNIUM Lymphocytes Abs 1.8 1.0 - 3.6 CERNER x10(3)/mcL MILLENNIUM Monocytes % 9.3 4.0 - 13.0 CERNER % MILLENNIUM Monocyte Abs 0.5 0.2 - 1.0 CERNER x10(3)/mcL MILLENNIUM Eosinophils % 2.6 0.0 - 7.0 CERNER % MILLENNIUM Eosinophils Abs 0.1 0.0 - 0.5 CERNER x10(3)/mcL MILLENNIUM Basophils % 1.0 0.0 - 2.0 CERNER % MILLENNIUM Basophils Abs 0.0 0.0 - 0.2 CERNER x10(3)/mcL MILLENNIUM Immature Gran % 0.20 0.00 - CERNER 0.66 % MILLENNIUM Comment: Immature granulocytes(IG's)percentage an d absolute count will include metamyelocytes, myelocytes, and promyelo cytes. Blood smears from CBCs yielding IG's will be scanned manually for concor dance. If this scan disagrees with the automated IG or if promyelocytes are not ed, a manual differential will be performed. Malika Gran Abs 0.01 0.00 - 0.05 x10(3)/mcL CER NER MILLENNIUM Specimen Anatomical Collection Method Collection Time Receive d Time (Source) Location / / Volume Laterality Blood specimen 10/16/2012 11:09 3 (specimen) AM EDT 11:15 AM EDT Real Jones MD HEMATOLOGY ORDERABLES Performing Organization Address City/[facility] Phon e Number [address] CERNER MILLENNIUM TSH (10/16/2012 11:09 AM EDT) athologist Signature TSH 3.00 0.27 - 4.20 CERNER mcIU/mL MILLENNIUM Specimen Anatomical Collection Method Collection Time Receive d Time (Source) Location / / Volume Laterality Blood specimen 10/16/2012 11:09 3 (specimen) AM EDT 11:15 AM EDT Resulting Agency Comment Spec In Lab Real Jones MD CHEMISTRY ORDERABLES Performing Organization Address City/[facility] e Number [address] CERNER MILLENNIUM Basic Metabolic Panel (non-fasting) (10/16/2012 11:09 AM EDT) athologist Signature Glucose Lvl 97 60 - 199 CERNER mg/dL MILLENNIUM Comment: Diabetes: >=200 mg/dL plus symp toms BUN 13 10 - 20 mg/dL CERNER MILLENNIU M Creatinine 0.88 0.80 - 1.50 mg/dL CERNER MILL ENNIUM Comment: Please note that the pediatric reference intervals supplied above were not validated at [facility]. Results from pediatri c patients should be interpreted in conjunction to the patient's age, height and muscle mass. Sodium 141 135 - 145 mmol/L CERNER YRN NIUM Potassium 4.1 3.5 - 5.0 mmol/L CERNER YRN NIUM Comment: Please note: ??Patients with WBC >100,00 0 may have falsely elevated Potassium levels. ??For accurate Potassium quantif ication in these patients send serum separator tube (gold top) for subsequent determinations. ??Contact the Clinical Chemistry Laboratory if there are any qu estions. Chloride 106 98 - 107 mmol/L CERNER MILLENN IUM CO2 27 22 - 31 mmol/L CERNER MILLENNI UM Anion Gap 8 5 - 15 mmol/L CERNER MILLENNIU M Calcium 9.0 8.5 - 10.5 mg/dL CERNER YRN NIUM Estimated GFR >60 >=60 CERNER MILLENNIU M Comment: This estimated GFR (eGFR) value was [...] the following links into your internet browser. http://www.nkdep.nih.gov/lab-evaluation. shtml http://www.kidney.org/professionals/ Specimen Anatomical Collection Method Collection Time Receive d Time (Source) Location / / Volume Laterality Blood specimen 10/16/2012 11:09 3 (specimen) AM EDT 11:15 AM EDT Resulting Agency Comment Spec In Lab Real Jones MD CHEMISTRY ORDERABLES Performing Organization Address City/State/[place] [address] CERNER MILLENNIUM (ABNORMAL) CBC (with Diff) (10/16/2012 11:09 AM EDT) P athologist Signature WBC 5.0 4.0 - 10.0 CERNER x10(3)/mcL MILLENNIUM RBC 4.61 (L) 4.63 - CERNER 6.08 MILLENNIUM x10(6)/mcL Hemoglobin 14.7 13.7 - CERNER 17.5 gm/dL MILLENNIUM Hematocrit 43.3 40.0 - CERNER 51.0 % MILLENNIUM MCV 93.9 (H) 79.0 - CERNER 92.0 fL MILLENNIUM MCH 31.9 25.6 - CERNER 32.2 pg MILLENNIUM MCHC 33.9 32.0 - CERNER 36.5 gm/dL MILLENNIUM Platelets 230 145 - 370 CERNER x10(3)/mcL MILLENNIUM RDWSD 41.1 35.0 - CERNER 46.0 fL MILLENNIUM RDWCV 12.1 10.9 - CERNER 14.4 % MILLENNIUM MPV 8.8 (L) 9.0 - 12.0 CERNER fL MILLENNIUM Specimen Anatomical Collection Method Collection Time Receive d Time (Source) Location / / Volume Laterality Blood specimen 10/16/2012 11:09 3 (specimen) AM EDT 11:15 AM EDT Resulting Agency Comment Spec In Lab Real Jones MD HEMATOLOGY ORDERABLES Performing Organization Address City/State/[place] [address] TAMELA DAY documented in this encounter Visit Diagnoses Diagnosis Esophageal ulcer - Primary Ulcer of esophagus without bleeding Melena Blood in stool Hematemesis documented in this encounter Care Teams Supervisor Asbestos Textile Relationship Specialty Start Date End Date Marin Patton MD PCP - General 02/15/10 01/25/17 documented as of this encounter
--- OUTSIDE RECORDS SUMMARY | 2021-12-30 01:34 | XMS_ITS | Encounter Summary ---
:1955 Author Organization [facility] [place] [address] Care Team Providers Name Role Phone Radha Gustafson MD Primary Care Provider Encounter Details Date Type Department Care Team Description 12/10/2012 Office Visit Gastroenterology at [facility] Real Jones, GERD [facility] Alexsandra ross MD ([place] [address] [place] [address] reflux disease) [phone] CULBERTSON (Primary Dx) [place] [address] Social History Tobacco Use Types Packs/Day Years [...] encounter Progress Notes Real Jones MD - 12/16/2012 7:17 PM EDT LUDOZ-KKLBY-SORO WIRELESS pH CAPSULE STUDY AFTER UPPER ENDOSCOPY Amanuel Hussein Male, 57 yrs, 1955 PCP: RADHA GUSTAFSON MEDICAL RECEPTIONIST ASSISTANT: NONE STUDY DATES: 9/11/13 to 12/06/12 INTERPRETATION DATE: 12/13/12 PROVIDER: [place] ([id number]) INDICATION Persistent reflux symptoms despite medical therapy. NOTE: This study was performed on 40 mg of Nexium twice daily. METHODS After upperendoscopy where landmarks were visualized and measured, in a supervised setting, and after informed consent, a Sommer pH telemetry capsule was deployed orally and attached to the esophageal wall at 5 cmabove the upper border of the LES. No complications were noted during this procedure. FINDINGS Visual inspection of the study shows fluctuations in pH values throughout the study consistent with a technically adequate study. The patient did not record upright or supine positions on day two. DAY ONE Total Number of Reflux Episodes: 20 Upright Position: 20 Supine Position: 0 Reflux Episodes Longer thanFive Minutes: 0 Upright: 0 Supine: 0 Duration of Longest Episode: 2 minute(s), upright position Total Distal Esophageal Acid Exposure Time: 12 minute(s). Percent of Total Recording Time: 0.8% Percent of Upright Recording Time: 1.2% Percent of Supine Recording Time: 0% DAY TWO Total Number of Reflux Episodes: 18 Reflux Episodes Longer than Five Minutes: 0 Duration of Longest Episode: 1 minute(s). Total Distal Esophageal Acid Exposure Time: 4 minute(s). Percent of Total Recording Time: 0.3% Zrjlw-Ornht-Chmc (Total) Fraction of Time with pH Less Than 4%: 0.6% Calculated DeMeester Score (normal values are up to 14.72) Day One Calculated DeMeester Score: 3.2 Day Two Calculated DeMeester Score: 2.1 Adyin-Ukler-Tlmg DeMeester Score (Total): 2.7 During this recording period, the patient did not report any symptoms on his equipment analyst. IMPRESSION During this recording period, while the patient was on 40 mg of Nexium twice daily, there was no evidence of pathologic acid reflux into the distal esophagus. NORMAL VALUES FOR WIRELESS pH CAPSULE STUDY 1. Total number of reflux episodes = less than 50. 2. Number of episodes longer than 5 minutes = less than 3. 3. Acid exposure time Total = less than 5.3% Upright= less than 6.3% Supine = less than 1.2%. ADDENDUM SAP expresses the likelihood that a specific symptom, i.e., heartburn, regurgitation, chest pain, is associated with acid reflux. By convention, SAP values greater than 95% are positive. Real Jones MD, PhD policy writer, [facility] Section of [place] [address] V: [phone] F: [phone] BEL/bcj EC/CC:PCP Catalina Iverson APRN documented in this encounter Plan of Treatment Upcoming Encounters Date Type Specialty Care Team Description 01/19/2022 Office Visit Radiation Oncology Clover Covarrubias APRN [facility] RADIATION ONCOLO [place], [place] [address] (Wo rk) 12/04/2022 Hospital Encounter Gastroenterology Real Jones MD [facility] GASTROENTEROLOGY DEPT. [place], [place] [address] (Wo rk) Scheduled Procedures Name Priority Associated Diagnoses Date/Time COLONOSCOPY, DIAGNOSTIC 10 yr f/up documented as of this encounter Visit Diagnoses Diagnosis GERD (gastroesophageal reflux disease) - Primary Esophageal reflux documented in this encounter Care Teams Cable Ferryboat Operator Relationship Specialty Start Date End Date Radha Gustafson MD PCP - General 02/15/10 01/25/17 documented as of this encounter
--- OUTSIDE RECORDS SUMMARY | 2021-12-30 01:34 | XMS_ITS | Encounter Summary ---
:1955 Author Organization [facility] [place] [address] Care Team Providers Name Role Phone Marin Patton MD Primary Care Provider Encounter Details Date Type Department Care Team Description 11/26/2016 Hospital Encounter Radiology Library at Zaheer [place] [address] [place] [address] [phone] (Wo rk) Social History Tobacco Use Types [...] times daily. documented as of this encounter Plan of Treatment Upcoming Encounters Date Type Specialty Care Team Description 01/19/2022 Office Visit Radiation Oncology Clover Covarrubias, [facility] RADIATION ONCJENNIFER [place], [place] [address] (Wo rk) 12/04/2022 Hospital Encounter Gastroenterology Real Jones MD [facility] GASTROENTEROLOGY DEPT. [place], [place] [address] (Wo rk) Scheduled Procedures Name Priority Associated Diagnoses Date/Time COLONOSCOPY, DIAGNOSTIC 10 yr f/up documented as of this encounter Procedures Procedure Name Priority Date/Time Associated Diagnosis Comme nts FILM LIBRARY Routine 11/26/2016 12:00 AM Pain Results for this STORAGE ONLY CT EDT procedure ar e in CHEST ABDOMEN the results PELVIS section. documented in this encounter Results Film Library- Storage Only CT Chest Abdomen Pelvis (11/26/2016 12:00 AM EDT) Specimen (Source) Anatomical Location Collection Method / Collectio n Time Received Time / Laterality Volume Narrative RAD - 11/28/2016 1:19 PM EDT This exam is for storage only and is aut o-finalizing. Zaheer Meyer DO Lyn FILM LIBRARY ORDERABLES Performing Organization Address City/State/ZIP Code Phon e Number [place], [place] documented in this encounter Visit Diagnoses Diagnosis Pain Generalized pain documented in this encounter Care Teams Company Controller Relationship Specialty Start Date End Date Marin Patton MD PCP - General 02/15/10 01/25/17 documented as of this encounter
--- OUTSIDE RECORDS SUMMARY | 2021-12-30 01:34 | XMS_ITS | Encounter Summary ---
:1955 Author Organization [facility] [place] [address] Care Team Providers Name Role Phone Marin Patton MD Primary Care Provider Encounter Details Date Type Department Care Team Description 09/05/2012 External Results Medical Records [place], [place] [address] Social History Tobacco Use Types Packs/Day Years Used Date Never Assessed Sex Assigned at Date Recorded Not on file documented as of this encounter Plan of Treatment Upcoming Encounters Date Type Specialty Care Team Description 01/19/2022 Office Visit Radiation Oncology Clover Covarrubias APRN [facility] RADIATION ONCJENNIFER [place], [place] [address] (Wo rk) 12/04/2022 Hospital Encounter Gastroenterology Real Jones MD [facility] GASTROENTEROLOGY DEPT. [place], [place] [address] (Wo rk) Scheduled Procedures Name Priority Associated Diagnoses Date/Time COLONOSCOPY, DIAGNOSTIC 10 yr f/up documented as of this encounter Procedures Procedure Name Priority Date/Time Associated Diagnosis Comme nts SURGICAL PATHOLOGY SCAN Routine 09/05/2012 documented in this encounter Results Scan Doc: Surgical Pathology (09/05/2012) Narrative This result has an attachment that is no t available. Real Jones MD MEDIA MGR SCAN EXT ORDR/RSLT documented in this encounter Visit Diagnoses Not on filedocumented in this encounter Care Teams Optomechanical Engineer Relationship Specialty Start Date End Date Marin Patton MD PCP - General 02/15/10 01/25/17 documented as of this encounter
--- OUTSIDE RECORDS SUMMARY | 2021-12-30 01:34 | XMS_ITS | Encounter Summary ---
:1955 Author Organization [facility] [place] [address] Care Team Providers Name Role Phone Marin Patton MD Primary Care Provider Reason for Referral Surgical (Routine) - Closed Specialty Diagnoses / Procedures Referred By Contact Refer red To Contact Gastroenterology Diagnoses GERD (gastroesophageal reflux disease) Real Jones MD [facility] Endoscopy 4t Procedures adair during egd for gerd symptoms (ordered in Ms. Iverson's absence). motility [facility] [place] [address] [place] [address] Referral ID Status Reason Start Date Expiration Date Visits V isits Requested Authorized [id number] Closed Consult, 11/08/2012 05/07/2013 1 1 Test & Treat Encounter Details Date Type Department Care Team Description 11/08/2012 Orders Only Gastroenterology at [facility] Real Jones, GERD [facility] Alexsandra ross MD ([place] [address] [facility] MED[facility] reflux disease) [phone] [place] (Primary Dx) [place] [address] Social History Tobacco Use Types Packs/Day Years Used Date Former Smoker 1.5 20 Comments: Quit in 1985 Alcohol Use Standard Drinks/Week Comments Yes 0 [...] Clover Covarrubias APRN [facility] ER RADIATION ONCOLO [place], [place] [address] (Wo rk) 12/04/2022 Hospital Encounter Gastroenterology Real Jones MD [facility] GASTROENTEROLOGY DEPT. [place], [place] [address] (Wo rk) Scheduled Procedures Name Priority Associated Diagnoses Date/Time COLONOSCOPY, DIAGNOSTIC 10 yr f/up Scheduled Referrals Name Type Priority Associated Order Schedule Diagnoses Referral to Outpatient Routine GERD Ordered: Gastroenterology Referral (gastroesophageal 2012 reflux disease) documented as of this encounter Visit Diagnoses Diagnosis GERD (gastroesophageal reflux disease) - Primary Esophageal reflux documented in this encounter Care Teams Private Equity Associate Relationship Specialty Start Date End Date Marin Patton MD PCP - General 02/15/10 01/25/17 documented as of this encounter
[2021-12-31 12:43] LABS: PSA, Ultrasensitive <0.01 ng/mL (<= 4.5)
[2022-01-03 17:43] LABS: Testosterone, Total 89 ng/dL (240-950)
== END 2021-12-30 01:28 | disposition home or self-care (01) ==
PROVIDERS: PCP Family Medicine; Visit Provider Radiology Radiation Oncology
DX: C61 Malignant neoplasm of prostate (principal)
CPT/HCPCS: 36415; 84153; 84403

== ENCOUNTER 2022-03-28 07:58 | Outpatient (REF) | payer OTHER, SELFPAY ==
[2022-03-28 18:49] LABS: Anion Gap 8.5 mmol/L (3-11); BUN 25 mg/dL (7-18); CO2 28.5 mmol/L (21.0-32.0); CREATININE 1.3 mg/dL (0.70-1.30); Calcium 9.6 mg/dL (8.5-10.1); Calculated LDL 127 mg/dL (<100); Chloride 102 mmol/L (98-107); Cholesterol 194 mg/dL (<200); Estimated GFR 60.21 (mL/min/1.73m2); Glucose 119 mg/dL (74-106); HDL Cholesterol 49 mg/dL (40-60); Potassium 4.4 mmol/L (3.5-5.1); Sodium 139 mmol/L (136-145); Triglyceride 94 mg/dL (<150)
[2022-03-28 19:48] LABS: Hemoglobin A1C 5.8 % (<5.7)
== END 2022-03-28 07:59 | disposition home or self-care (01) ==
LOC: NCHCN 07:58
PROVIDERS: PCP Family Medicine; Visit Provider Family Medicine
DX: E78.5 Hyperlipidemia, unspecified (principal); I10 Essential (primary) hypertension; R73.03 Prediabetes
CPT/HCPCS: 80048; 80061; 83036

== ENCOUNTER 2022-07-13 03:37 | Outpatient (CLI) | payer OTHER, SELFPAY ==
[2022-07-15 13:10] LABS: PSA, Ultrasensitive <0.01 ng/mL (<= 4.5)
[2022-07-17 18:53] LABS: Testosterone, Total 381 ng/dL (240-950)
== END 2022-07-13 03:38 | disposition home or self-care (01) ==
PROVIDERS: PCP Family Medicine; Visit Provider Nurse Practitioner Family
DX: C61 Malignant neoplasm of prostate (principal)
CPT/HCPCS: 36415; 84153; 84403

== ENCOUNTER 2022-12-27 03:29 | Outpatient (CLI) | payer OTHER, SELFPAY ==
[2022-12-28 20:37] LABS: PSA, Ultrasensitive <0.01 ng/mL (<= 4.5)
[2022-12-31 15:37] LABS: Testosterone, Total 273 ng/dL (240-950)
== END 2022-12-27 03:30 | disposition home or self-care (01) ==
PROVIDERS: PCP Family Medicine; Visit Provider Colon & Rectal Surgery
DX: C61 Malignant neoplasm of prostate (principal)
CPT/HCPCS: 36415; 84153; 84403

== ENCOUNTER 2023-01-16 15:09 | Outpatient (REF) | payer OTHER, SELFPAY ==
[2023-01-16 17:22] LABS: Bilirubin Negative (Negative); Blood Trace-intact (Negative); Clarity Clear (Clear); Glucose Negative (Negative); Ketones Trace mg/dL (Negative); Leukocyte Esterase Negative (Negative); Nitrite Negative (Negative)
[2023-01-16 17:33] LABS: Bacteria Few HPF (Negative); Crystals Negative HPF (Negative); Epithelial Cells Rare HPF (Negative)
[2023-01-16 17:34] LABS: C & S Indicated? Yes; Mucus Negative (Negative)
== END 2023-01-16 15:10 | disposition home or self-care (01) ==
LOC: LBN 15:09
PROVIDERS: PCP Family Medicine; Visit Provider Nurse Practitioner
DX: R31.29 Other microscopic hematuria (principal); Z85.46 Personal history of malignant neoplasm of prostate
CPT/HCPCS: 81003; 81015; 87086

== ENCOUNTER → 2023-01-31 00:27 | Outpatient (CLI) | payer OTHER, SELFPAY ==
--- NOTE | 2023-01-31 | DI.CT_ITS ---
Exam(s) CT ABDOMEN PELVIS WO/W EXAM: CT ABDOMEN PELVIS WO/W CLINICAL HISTORY: HEMATURIA,R31.29,H/O RADIATION THERAPY,Z92.3 AND PROSTATE CA,C61 TECHNIQUE: Imaging Protocol: Axial computed tomography images with coronal and sagittal reformatted images were created and reviewed CONTRAST MATERIAL: Intravenous: Omnipaque 350 Contrast volume:100 mL Oral: No COMPARISON: CT CHEST ABD PELVIS WITH CONTRAST from 11/26/2016 FINDINGS: ABDOMEN: Lung Bases: Normal where visualized. Liver: There is diffuse fatty infiltration of the liver. No measurable mass. Portal, Superior Mesenteric, and Splenic Veins: Unremarkable. Gallbladder and Biliary Tract: No radiodense calculus or dilation. Pancreas: Normal density, no abnormal calcifications or inflammatory process. Spleen: Normal. Adrenals: No masses seen. Kidneys: Normal size, contour and axis. No radiodense stones or obstructive uropathy. No masses seen. There is a duplicated left renal collecting system. Abdominal Aorta: Abdominal portion non-dilated. Atherosclerosis. Bowel: There is diverticulosis of the colon but no evidence of acute diverticulitis. No evidence of appendicitis. No bowel obstruction or bowel wall thickening. Peritoneal Cavity: No ascites, collection or mesenteric inflammatory response. No free air. Lymph Nodes: Within normal limits. Bones: Within normal limits for the patient's age. Soft Tissues: Unremarkable. PELVIS: Bladder: There is diffuse thickening of the wall of the urinary bladder. Reproductive Organs: The prostate gland is not visualized. Lymph Nodes: Within normal limits. Bones: Within normal limits for the patient's age. No sclerotic lesions are seen. IMPRESSION: 1. Diffuse thickening of the wall of the urinary bladder. The bladder is underdistended which may ca use this appearance. Cystitis should also be considered. Chronic bladder outlet obstruction or neop lasm cannot be excluded. 2. Fatty infiltration of the liver. RADIATION DOSE DELIVERED: Total DLP Total DLP DATA REPOSITORY: All CT scans at this facility are submitted to the National Radiology Data Registry (NRDR) Dose Index Registry (DIR) with the [employer] (ACR). RADIATION OPTIMIZATION: All CT scans at this facility use at least one of these dose optimization te chniques: automated exposure control; mA and/or kV adjustment per patient size (includes targeted exa ms where dose is matched to clinical indication); or iterative reconstruction.
[2023-01-31 07:55] LABS: CREATININE 1.1 mg/dL (0.70-1.30); Estimated GFR 73.12 (mL/min/1.73m2)
[2023-01-31] MEDS: Normal Saline - Diluent 50 ML VIAL IJ (08:28)
[2023-01-31] MEDS: Omnipaque 350 MG/ML 500 ML BTL-Imaging package IJ (08:31)
[2023-01-31] MEDS: Normal Saline Flush 10 ML SYR IVP (08:32)
[2023-01-31 08:56] LABS: Bilirubin Negative (Negative); Blood Small (Negative); Clarity Sl Cloudy (Clear); Glucose Negative (Negative); Ketones Negative (Negative); Leukocyte Esterase Negative (Negative); Nitrite Negative (Negative)
[2023-01-31 09:33] LABS: Bacteria Rare HPF (Negative); Crystals Negative HPF (Negative); Epithelial Cells Rare HPF (Negative); WBC 0-2 HPF (0-5)
[2023-01-31 09:34] LABS: C & S Indicated? No; Casts Negative LPF (Negative); Mucus Moderate (Negative)
[2023-02-04 17:45] LABS: Testosterone, Total 477 ng/dL (240-950)
[2023-02-07 10:45] LABS: PSA, Ultrasensitive <0.01 ng/mL (<= 4.5)
== END ==
PROVIDERS: PCP Family Medicine; Visit Provider Nurse Practitioner
DX: K76.0 Fatty (change of) liver, not elsewhere classified (principal); N32.9 Bladder disorder, unspecified
CPT/HCPCS: 84153; 84403; 74178; 81003; 81015; 82565

== ENCOUNTER → 2023-01-31 00:40 | Outpatient (CLI) | payer OTHER, SELFPAY ==
--- NOTE | 2023-01-31 | DI.US_ITS ---
Exam(s) US ABDOMEN EXAM: US ABDOMEN CLINICAL HISTORY: NILIRUBINURIA,R82.2 TECHNIQUE: Ultrasound abdomen performed using standard protocol. COMPARISON: US ABDOMEN ULTRASOUND (P) from 09/04/2017 FINDINGS: ABDOMINAL AORTA AND IVC: Visualized portions normal caliber. PANCREAS: Normal where visualized. LIVER: There is increased echogenicity of the liver consistent with fatty infiltration. The liver me asures 17 cm long. Hepatopedal flow in the Portal Vein. GALLBLADDER:No evidence of cholelithiasis. No evidence of wall thickening. No pericholecystic fluid i dentified. BILIARY SYSTEM: Common bile duct measures < 7 mm. No intrahepatic biliary ductal dilation. PEREZ'S SIGN: Negative. KIDNEYS: Kidneys are symmetric in size. No evidence of renal calculi. No evidence of hydronephrosis. No renal mass or cyst identified. SPLEEN: Not enlarged. ASCITES: None seen. IMPRESSION: Hepatic steatosis. DATA REPOSITORY:
== END ==
PROVIDERS: PCP Family Medicine; Visit Provider Family Medicine
DX: K76.0 Fatty (change of) liver, not elsewhere classified (principal)
CPT/HCPCS: 76700

== ENCOUNTER 2023-05-30 11:56 | Outpatient (REF) | payer OTHER, SELFPAY ==
[2023-05-30 15:18] LABS: HCT 42.5 % (40.0-50.0); HGB 14.9 g/dL (13.5-17.5); MCH 33.3 pg (27.0-33.0); MCHC 35.1 % (32.0-36.0); MCV 95 fL (80-95); MPV 8.4 fL (8.0-11.0); Platelet Count 213 10^3/uL (130-400); RBC 4.48 10^6/uL (4.36-5.78); RDW 12.1 % (11.8-14.1); RDW-SD 42.1 fL
[2023-05-30 16:14] LABS: ALT 80 U/L (16-63); AST 51 U/L (15-37); Albumin 3.7 g/dL (3.4-5.0); Alkaline Phosphatase 51 U/L (46-116); Anion Gap 10.5 mmol/L (3-11); BUN 14 mg/dL (7-18); Bilirubin, Total 1.1 mg/dL (0.2-1.0); CO2 26.5 mmol/L (21.0-32.0); CREATININE 1.1 mg/dL (0.70-1.30); Calcium 8.9 mg/dL (8.5-10.1); Calculated LDL 97 mg/dL (<100); Chloride 106 mmol/L (98-107); Cholesterol 157 mg/dL (<200); Estimated GFR 72.67 (mL/min/1.73m2); Glucose 104 mg/dL (74-106); HDL Cholesterol 44 mg/dL (40-60); Potassium 4.2 mmol/L (3.5-5.1); Sodium 143 mmol/L (136-145); Total Protein 6.8 g/dL (6.4-8.2); Triglyceride 80 mg/dL (<150)
[2023-05-30 17:05] LABS: Hemoglobin A1C 5.9 % (<5.7)
== END 2023-05-30 11:57 | disposition home or self-care (01) ==
LOC: NCHCN 11:56
PROVIDERS: PCP Family Medicine; Referring Provider Family Medicine; Visit Provider Family Medicine
DX: I10 Essential (primary) hypertension (principal); E78.5 Hyperlipidemia, unspecified; R73.03 Prediabetes; Z00.00 Encounter for general adult medical examination without abnormal findings
CPT/HCPCS: 80053; 80061; 85027; 83036

== ENCOUNTER 2023-07-12 04:47 | Outpatient (CLI) | payer OTHER, SELFPAY ==
[2023-07-12 08:55] LABS: ALT 58 U/L (16-63); AST 38 U/L (15-37); Alkaline Phosphatase 58 U/L (46-116); Bilirubin, Total 0.7 mg/dL (0.2-1.0); Ferritin 615 ng/mL (26-388); Total Protein 7.7 g/dL (6.4-8.2)
[2023-07-12 09:03] LABS: Bilirubin, Direct 0.2 mg/dL (0.0-0.2)
[2023-07-12 19:15] LABS: HBs Antibody, Quant <3.1 mIU/mL (See Note); Hepatitis B Surface Ab Negative (See Note)
[2023-07-12 19:23] LABS: Hepatitis B Surface Ag Negative (Negative)
[2023-07-12 19:58] LABS: Hepatitis C Ab w Rflx HCV PCR Negative (Negative)
[2023-07-12 20:01] LABS: Bilirubin Negative (Negative); Blood Trace-intact (Negative); Clarity Clear (Clear); Glucose Negative (Negative); Ketones Negative (Negative); Leukocyte Esterase Negative (Negative); Nitrite Negative (Negative); Specific Gravity 1.025 (1.005-1.025); Urobilinogen 0.2 mg/dL (Up to 0.2); pH 5.5 (5-8)
[2023-07-12 20:02] LABS: Hep B Core Antibody Negative (Negative)
[2023-07-12 20:03] LABS: Bacteria Negative HPF (Negative); C & S Indicated? No; Casts Negative LPF (Negative); Crystals Negative HPF (Negative); Epithelial Cells Negative HPF (Negative); Mucus Negative (Negative); RBC 0-2 HPF (0-2); WBC Negative HPF (0-5)
[2023-07-12 20:06] LABS: CREATININE 1.1 mg/dL (0.70-1.30); Estimated GFR 72.67 (mL/min/1.73m2)
[2023-07-12 20:17] LABS: Hep A Total Ab w Rflx IgM Positive (Negative)
[2023-07-13 09:20] LABS: Hep A Antibody IgM Negative (Negative)
[2023-07-16 12:33] LABS: PSA, Ultrasensitive <0.01 ng/mL (<= 4.5)
[2023-07-17 11:38] LABS: Testosterone, Total 369 ng/dL (240-950)
== END 2023-07-12 04:48 | disposition home or self-care (01) ==
PROVIDERS: Nurse Practitioner; PCP Family Medicine; Visit Provider Internal Medicine Hematology & Oncology
DX: R31.29 Other microscopic hematuria (principal); Z92.3 Personal history of irradiation; C61 Malignant neoplasm of prostate
CPT/HCPCS: 36415; 80076; 84153; 84403; 86704; 86706; 86709; 86803; 87340; 81003; 81015; 82565; 82728

== ENCOUNTER → 2023-10-11 01:41 | Outpatient (CLI) | payer OTHER, SELFPAY ==
--- OUTSIDE RECORDS SUMMARY | 2023-10-11 01:47 | XMS_ITS | Encounter Summary ---
Author Organization [facility] [place] [address] Care Team Providers Care Spa Host Name Role Phone Clara Wood MD Primary Care Provider [phone] Encounter Details Date Type Department Care Team (Latest Contact Info) Description 07/19/2023 1:45 PM EDT TH Visit (TeleHealth) Radiation Oncology at [address] [phone] Zahira Jaffe PA [facility] [place] [address] Malignant neoplasm of prostate (Primary Dx); S/P radiotherapy Social History Tobacco Use Types Packs/Day Years Used Date Smoking Tobacco: Former Cigarettes 1.5 20 1 962 - 1982 Smokeless Tobacco: Never Alcohol Use Standard Drinks/Week Comments Yes 0 (1 standard drink = 0.6 oz pur e alcohol) rarely Sex and Gender Information Value Date Recorded Sex Assigned at Not on file Gender Identity Not on file Sexual Orientation Not on file documented as of this encounter Progress Notes * Zahira Jaffe PA - 07/19/2023 1:45 PM EDT [facility] [place] [address] TELEHEALTH FOLLOW-UP: Patient: Amanuel Duncan Dami : 1955 PCP: Clara Wood MD Urologist: Nabil Camargo MD ([facility]; last seen 04/13/23) Radiation Oncologist: Michel Yip MD (Consult Date: 07/02/20) Chief Complaint: 6 month follow-up for high-risk prostate cancer (RALP 11/2017; Stage IIIB: pT3a, pN0, cM0; Sarah 4+3, pre-op PSA 12, +focal SM Gl 3; rising post-op PSA 0.08 in 04/2021) HPI: Date of Diagnosis (Biopsy): 10/15/17 Surgery: RALP (12/07/17) Treatment Intent: Definitive (Salvage) Radiation Therapy: Completion Date Treatment Site Modality Dose per Fraction (Gy) # Fractions Total Dose (Gy) 08/19/21 Pelvis, Prostate bed; Prostate bed EBRT 1.8; 1.8 25; 39 45; 70.2 Concurrent Therapy: ST-ADT (Leuprolide [Lupron Depot] IM, planned 6 months; completed with coveragethrough 11/2021) Date Dose (mg) 06/08/21 7.5 07/14/21 7.5 08/12/21 7.5 09/08/21 7.5 10/06/21 7.5 11/03/21 7.5 Current treatment: Surveillance Interval Symptoms Since Last Visit on 01/16/23: General: Doing pretty good. Pain: 0/10 Fatigue/Activity Level: No change in energy level. 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 Weight/Appetite/Diet: No recent changes in appetite. Denies unintentional weight loss/gain. Respiratory: Denies SOB or cough. Cardiovascular: Denies chest pain, palpitations, calf pain/swelling, or other peripheral edema. GI: Denies N/V/D/C, melena, or hematochezia. : In 12/2022, reported that recent [facility] check showed microscopic hematuria (no gross hematuria). Repeat UA on 01/16/23 showed 5-10 RBC, but was negative for infection (UA also showed elevated urobilinogen, patient has a h/o fatty liver; PCP following). On 04/13/23, patient underwent cystoscopy, which showed radiation cystitis. Today, reports having visible blood in his urine after the cystoscopy, but this has mostly subsided and he now only has occasional hematuria. UA on 07/12/23 showedtrace blood. At last visit, nocturia was 2-3 times per night, now is 3-4 times per night. Continues to have leakage, worse than before, aggravated by physical activity (walking, lifting weights, doing yard work, etc). Using more pads now (was previously only using about 2 per day). Has not seen a pelvic floor physical therapist before, but states Kegels are not helping. Not taking any medications for urinary symptoms. Denies dysuria, difficulty initiating urination, difficulty emptying bladder, increased urgency or frequency. Endocrine: Did not have hot flashes while on ADT. Sexual Health: ED s/p RALP, medications did not help. Not currently interested in pursuing other options. Musculoskeletal: Has carpal tunnel syndrome and a trigger finger. Bone Health: Denies recent fracture or bone pain. Neurological: Denies headaches, seizures, peripheral neuropathy. Mood: Denies mood swings or feeling depressed. Tobacco Use: Smoked 1 PPD starting at 18 y.o., quit in . Alcohol Use: Rarely. Social Support: . Allergies: No Known Allergies Current Medications: Current Outpatient Medications on File Prior to Visit Medication Sig Dispense Refill chlorthalidone (Hygroten) 25 mg Tablet 25 mg daily. lisinopriL (Prinivil;Zestril) 40 mg Tablet Take 40 mg by mouth daily. No current facility-administered medications on file prior to visit. Performance Status: KPS Score ECOG Grade Definition [...] confined to bed or chair Physical Examination: (No vitals obtained as this is a telehealth appointment.) Constitutional: well-groomed, conversant. NAD. HEENT: normocephalic. PERRL, EOMI, sclerae anicteric, conjunctivae non-injected. Neck: supple, trachea midline. Respiratory: non-labored respirations with symmetrical expansion. Musculoskeletal: moving all extremities ad kimberley. WEI. Neurologic: alert and oriented x 3. Speech clear and coherent. Cranial nerves II-XII grossly intact. Skin: no visible rashes Psychiatric: mood is euthymic, affect is congruent. Insight and judgement are good. Labs Reviewed This Visit: Date PSA Testosterone Notes 07/2017 12.4 12/07/17 RALP 02/25/18 < 0.01 05/30/18 < 0.01 09/24/18 0.02 12/10/18 0.02 09/08/19 0.03 02/26/20 0.04 06/03/20 0.053 07/21/20 0.06 08/27/20 0.06 10/14/20 0.06 03/02/21 0.07 04/28/21 0.08 06/08/21 Started ADT 07/08/21 0.01 < 10 Testosterone Reference Range: 175-781 08/19/21 Completed RT 09/29/21 < 0.01 8 Testosterone Reference Range: 240-950 12/31/21 < 0.01 89 Testosterone Reference Range: 240-950 12/27/22 < 0.01 273 Testosterone Reference Range: 240-950 07/12/23 < 0.01 369 Testosterone Reference Range: 240-950 Assessment & Plan: #Prostate cancer: - Completed 6 months of ADT with coverage through 11/2021. - Labs reviewed from 07/12/23: PSA < 0.01, remains undetectable. Testosterone 369, remains WNL asexpected off ADT. - Per NCCN guidelines, PSA and H&P due every 6 months x 5 years s/p RT completion, then annually (PSA may be checked more frequently depending on risk level or other patient-specific factors). AMI if suspicious for recurrence. - Next PSA and H&P due in 6 months (12/2023). #Effects of EBRT: - Completed salvage RT to pelvis and prostate bed (see HPI) on 08/19/21. - Acute and late effects of radiation were reviewed with the patient, who currently reports occasional hematuria 2/2 radiation cystitis, increasing nocturia, and worsening leakage. Case discussed with Dr. Yip, recommend f/u with Urology. - Patient is aware that if he develops/continues to have any of the late effects of radiation listed below (difficulty or changes in urine flow, blood in urine or stool) in between his regularly scheduled appointments with our office, then he should seek medical evaluation. Acute: LUTS (lower urinary tract symptoms) Bowel dysfunction Sexual health/Erectile Dysfunction Fatigue Mood changes Late: Changes in urinary flow/difficulty passing urine (scarring from radiation) Blood in urine: may be infection, inflammation of bladder wall (cystitis), formation of telangiectasia (small, thin blood vessels that are dilated or broken near the surface of the bladder and may bleed), or bladder/genitourinary cancer Blood in stool: may be from hemorrhoids, telangiectasia from radiation, or colorectal cancer #Survivorship: - Body weight/nutrition: recommend a well-balanced diet with adequate hydration. - Exercise: recommend at least 150 minutes of cardiovascular exercise per week, stretching twice per week, and 2 days of resistance/strength training per week. - Sleep: recommend 7-8 hours per night. - Sunscreen: encourage SPF 30 or higher, and wearing protective clothing/hats while outside. - Follow with PCP on regular basis for: annual exam/health maintenance, immunizations, and cancer screenings (colonoscopy, lung cancer screening if appliable, etc). #Resources provided: none #Referrals placed: none Follow-Up: Next visit: 6 months Labs ([facility]): PSA Amanuel Duncan Saiy had the opportunity to ask questions, which were answered to the best of my knowledge. Amanuel CalvoOmerNorma agreed to contact Radiation Oncology in between visits if he has anyquestions/concerns or new symptoms in regards to his radiation therapy/prostate cancer. Zahira Jaffe PA-C Radiation Oncology documented in this encounter Plan of Treatment Upcoming Encounters Date Type Department Care Team (Late st Contact Info) Description 01/08/2024 1:45 PM EDT TH Visit (TeleHealth) Radiation Oncology at [address] [phone] Zahira Jaffe PA [facility] HEMATOLOGY [place] [address] Scheduled Orders Name Type Priority Associated Diagnoses Orde r Schedule PSA (Ultrasensitive) Lab Routine Malignant neoplasm of prostate Expected: 01/11/2024 (Approximate), Expires: 07/12/2024 documented as of this encounter Visit Diagnoses Diagnosis Malignant neoplasm of prostate- Primary S/P radiotherapy Convalescence following radiotherapy documented in this encounter Care Teams Spa Host Relationship Specialty Start Date End Date Clara Wood MD [facility] VALENTINE MUNOZ [facility] [address] [place] [address] PCP - General Family Medicine 01/26/17 documented as of this encounter
--- OUTSIDE RECORDS SUMMARY | 2023-10-11 01:47 | XMS_ITS ---
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 Past Plans No past plan information found. Radiation Treatments * No radiation treatments are documented for this patient in [facility]. Treatments may have been administered in another system. Resolved Problems Problem Noted Date Diagnosed Date Resolved Date GI bleed 11/28/2016 11/30/2016 Melena 10/16/2012 11/30/2016
--- OUTSIDE RECORDS SUMMARY | 2023-10-11 01:47 | XMS_ITS | Encounter Summary ---
Author Organization [facility] [place] [address] Care Team Providers Care Healthcare Financial Analyst Name Role Phone Clara Wood MD Primary Care Provider [phone] Reason for Visit * Reason Onset Date Comments Prior Authorization 01/25/2023 Encounter Details Date Type Department Care Team (Late st Contact Info) Description 01/25/2023 Telephone Hematology [place] [address] Ave Cat Prior Authorization Social History Tobacco Use Types Packs/Day Years [...] documented as of this encounter Miscellaneous Notes * Telephone Encounter - Ave Miner - 01/25/2023 2:21 PM EDT Procedure Prior Authorization Procedure/Cpt: 93533, [address]326 CT Urogram Rationale: R31.29, C61, Z92.3 Health Plan: [employer] Authorizing Vendor: as above Service Order/Case ID: NA Call Ref #: [id number] Effective Date: Status: PA NOT REQUIRED Rendering Facility: [facility] documented in this encounter Plan of Treatment Upcoming Encounters Date Type Department Care Team (Late st Contact Info) Description 01/08/2024 1:45 PM EDT TH Visit (TeleHealth) Radiation Oncology at [address] [phone] Zahira Jaffe PA [facility] DR HEMATOLOGY [place] [address] documented as of this encounter Visit Diagnoses Not on filedocumented in this encounter Care Teams Healthcare Financial Analyst Relationship Specialty Start Date End Date Clara Wood MD [facility] VALENTINE MUNOZ [address] [place] [address] PCP - General Family Medicine 01/26/17 documented as of this encounter
--- OUTSIDE RECORDS SUMMARY | 2023-10-11 01:47 | XMS_ITS | Encounter Summary ---
Author Organization [facility] [place] [address] Care Team Providers Care Railway Track Worker Name Role Phone Clara Wood MD Primary Care Provider [phone] Encounter Details Date Type Department Care Team (Late st Contact Info) Description 04/04/2023 Telephone Radiation Oncology at [facility] [place] [address] Jing Yeh LEASES AND LAND SUPERVISOR [facility] [place] [address] Social History Tobacco Use Types Packs/Day Years [...] encounter Miscellaneous Notes * Telephone Encounter - Jing Yeh APRN - 04/04/2023 7:27 AM EST Amanuel called me yesterday late afternoon (04/03/23) to let me know he has not heard from urology for an appointment. He is experiencing obvious blood in toilet bowl and on pants daily. No clots. Instructed him to go to ED if worsens in quantity/frequency or clots. I will follow up with urology on 04/04/22 regarding appointment for cystoscopy evaluation. Jing Yeh, DNP, ANP, LEASES AND LAND SUPERVISOR, AOCNP Radiation Oncology documented in this encounter Plan of Treatment Upcoming Encounters Date Type Department Care Team (Late st Contact Info) Description 01/08/2024 1:45 PM EDT TH Visit (TeleHealth) Radiation Oncology at [address] [phone] Zahira Jaffe PA [facility] [place] [address] documented as of this encounter Visit Diagnoses Not on filedocumented in this encounter Care Teams Railway Track Worker Relationship Specialty Start Date End Date Clara Wood MD [facility] VALENTINE ROSEN [address] [place] [address] PCP - General Family Medicine 01/26/17 documented as of this encounter
--- OUTSIDE RECORDS SUMMARY | 2023-10-11 01:47 | XMS_ITS | Encounter Summary ---
Author Organization [facility] [place] [address] Care Team Providers Care Plexiglas Former Name Role Phone Clara Wood MD Primary Care Provider [phone] Encounter Details Date Type Department Care Team (Late st Contact Info) Description 03/01/2023 Notes Only Radiation Oncology at [facility] [place] [phone] Jing Yeh APRN [facility] [place] [address] Social History Tobacco Use Types Packs/Day Years [...] as of this encounter Progress Notes * Jing Yeh APRN - 03/01/2023 3:13 PM EST I sent a letter to Amanuel (see letter in EMR) re: follow up with urology for evaluation of hematuria. Please see my office note of 01/16/23 and telephone note of 01/19/23. I have tried several timesto call Amanuel to review CT results from 01/31/23 and to see if he is following up with Dr. Wood regarding the liver inflammation. I left a phone number message for him to call urology to schedule an appointment. Since I have not heard back from him, I sent a certified letter with my concerns about follow up and to ask if he is obtaining care elsewhere or if there are any concerns (financial, transportation, etc) that is affecting his ability to meet with urology that I may be able to help with. He has a follow up appointment with MAMADOU Wray in radiation [facility] in June. Jing Yeh, DNP, ANP, METAL BENDING MACHINE OPERATOR, AOCNP Radiation Oncology documented in this encounter Plan of Treatment Upcoming Encounters Date Type Department Care Team (Late st Contact Info) Description 01/08/2024 1:45 PM EDT TH Visit (TeleHealth) Radiation Oncology at [address] [phone] Zahira Jaffe PA [facility] [place] [address] documented as of this encounter Visit Diagnoses Not on filedocumented in this encounter Care Teams Plexiglas Former Relationship Specialty Start Date End Date Clara Wood MD [facility] VALENTINE ROSEN [address] [place] [address] PCP - General Family Medicine 01/26/17 documented as of this encounter
--- OUTSIDE RECORDS SUMMARY | 2023-10-11 01:47 | XMS_ITS | Encounter Summary ---
Author Organization [facility] [place] [address] Care Team Providers Care Music Orchestrator Name Role Phone Clara Wood MD Primary Care Provider [phone] Reason for Visit * Reason Onset Date Comments Appointment 04/04/2023 CT Encounter Details Date Type Department Care Team (Late st Contact Info) Description 04/04/2023 [place] [phone] Mihir Torres, RN Appointment (CT) Social History Tobacco Use Types Packs/Day Years [...] encounter Miscellaneous Notes * Telephone Encounter - Mihir Torres RN - 04/04/2023 3:16 PM EST Spoke to patient and advised the external order for his CT urogram was sent to [facility] radiology as herequested. * Telephone Encounter - Mihir Torres RN - 04/04/2023 3:15 PM EST Copied from CRM #[id number]. Topic: Specialty Dept CRMs - Orders >> Apr 04, 2023 2:09 PM Ana Maria Silverman wrote: Orders Request Specialist: Nabil Camargo MD Relationship (if other than patient-full name): Type of Request: [x] Send orders Type/Name of Order: Imaging If Labs and Imaging list name of specific test(s): CT Urogram Date of Lab/Imaging/Testing Appt: n/a Date of Provider Appt: 04.10.23 Appt Type with Provider: FUV - Telehealth Patient Requesting to Have Orders Sent to Facility Outside of [facility]: Yes If Yes, Name of Facility: [facility] Address: [place], [place] Phone #: Fax #: Unknown documented in this encounter Plan of Treatment Upcoming Encounters Date Type Department Care Team (Late st Contact Info) Description 01/08/2024 1:45 PM EDT TH Visit (TeleHealth) Radiation Oncology at [address] [phone] Zahira Jaffe PA [facility] [place] [address] documented as of this encounter Visit Diagnoses Not on filedocumented in this encounter Care Teams Music Orchestrator Relationship Specialty Start Date End Date Clara Wood MD [facility] VALENTINE ROSEN [address] [place] [address] PCP - General Family Medicine 01/26/17 documented as of this encounter
--- OUTSIDE RECORDS SUMMARY | 2023-10-11 01:47 | XMS_ITS | Encounter Summary ---
Author Organization [facility] [place] [address] Care Team Providers Care Char Puller Name Role Phone Clara Wood MD Primary Care Provider [phone] Encounter Details Date Type Department Care Team (Late st Contact Info) Description 01/16/2023 2:30 PM EDT Office Visit Radiation Oncology at [address] [phone] Jing Yeh APRN [facility] [place] [address] Personal history of prostate cancer (Primary Dx); Microscopic hematuria; History of external beam radiation therapy; Androgen deprivation therapy Social History Tobacco Use Types Packs/Day Years Used Date Smoking Tobacco: Former Cigarettes 1.5 20 1 962 - 1981 Smokeless Tobacco: Never Alcohol Use Standard Drinks/Week Comments Yes 0 (1 standard drink = 0.6 oz pur e alcohol) rarely Sex and Gender Information Value Date Recorded Sex Assigned at Not on file Gender Identity Not on file Sexual Orientation Not on file documented as of this encounter Last Filed Vital Signs Vital Sign Reading Time Taken Comments Blood Pressure 112/72 01/16/2023 2:29 PM EDT Pulse 67 01/16/2023 2:29 PM EDT Temperature 37 ??C (98.6 ??F) 01/16/2023 2:29 PM EDT Respiratory Rate 18 01/16/2023 2:29 PM EDT Oxygen Saturation 97% 01/16/2023 2:29 PM EDT Inhaled Oxygen Concentration - - Weight 92.3 kg (203 lb 6.4 oz) 01/16/2023 2:29 P M EDT Height 175.3 cm (5' 9.02) 01/16/2023 2:29 PM ED T Body Mass Index 30.02 01/16/2023 2:29 PM EDT documented in this encounter Progress Notes * Jing Yeh APRN - 01/16/2023 2:30 PM EDT [facility] RADIATION ONCOLOGY [place], [place] FOLLOW UP NOTE Patient Amanuel Lomax 1955 PCP: Clara Wood MD Urologist: Dr. Camargo Radiation oncologist: Dr. Yip Chief Complaint: Amanuel Lomax is a 67 y.o. male presenting for follow up/surveillance/labsfor a history of biochemically recurrent prostate cancer for which he completed salvage EBRT and 6 mos of Lupron. HPI: Post RALP 11/2017 (pT3a G 3+4, pre op PSA 12, + focal SM G 3). Rising PSA post op until peak on04/28/21 of 0.08. Completed salvage EBRT 7020 cGy over 39 fractions on 08/19/21. ADT: Lupron 06/08/21- final dose 10/24/21 (7.5 mg) for total 6 months. 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 BP 112/72 (Patient Position: Sitting) Pulse 67 Temp 37 ??C (98.6 ??F) (Temporal) Resp 18 Ht175.3 cm (5' 9.02) Wt 92.3 kg (203 lb 6.4 oz) Constitutional: seen alone no distress Genitourinary: deferred PSA low and no concerning symptoms Musculoskeletal: Comments: Ambulates without assistance Neurological: Mental Status: alert and oriented to person, place, and time. Gait: Gait normal. Psychiatric: Mood and Affect: Mood normal. Behavior: Behavior normal. Thought Content: Thought content normal. Judgment: Judgment normal. New Labs Reviewed this visit: PSA (post RALP 11/2017) 05/2020 - 0.05 ng/dl 06/2020 - 0.06 08/27/2020 - 0.06 10/14/2020 - 0.06 03/02/2021 - 0.07 04/28/2021 - 0.08 decision to proceed with salvage RT/short term ADT 07/08/21 - 0.01 06/08/21 1st Lupron 08/19/21 - <<<COMPLETE RT>> 09/29/21 - <0.01 Test: 8 ([facility]) 10/24/21 (final Lupron 7.5 mg) 12/31/21 <0.01 89 07/16 ? 12/27/22 <0.01 273 [place] lab (test normal 248-950) ) Assessment/Medical Decision Making/Recommendations/Plan: # history of prostate cancer: reviewed PSA results undetectable. No concerning reported symptoms orphysical examination findings today # effects of EBRT: Acute: LUTS (lower urinary tract symptoms): slightly worse dribbling with exercise; doing Kegel/wears pad;discussed option of pelvic floor physical therapy but he's okay with the way things are Bowel dysfunction: none Sexual health/Erectile Dysfunction: post surgery; meds didn't work; not pursuing other options suchas surgery Fatigue: not quite back to baseline # microscopic hematuria: we discussed that microscopic hematuria may be related to infection, inflammation of the bladder wall from radiation, small blood vessels from radiation that bleed, dehydration, or bladder/genitourinary cancer. He prefers that work up for the microscopic hematuria be done outside of the [place] system. Since I don't have access to the [place] lab report, I will order a urinalysis with reflex culture today (he will go to [facility] lab). If this shows hematuria, next step is CT urogram and referral to urology at [facility] (Dr. Camargo is his urologist) for evaluation and cystoscopy. Late: We reviewed potential late effects of radiation that require medical evaluation including : Changes in urinary flow/difficulty passing urine (scarring from radiation) Blood in urine (may be infection, inflammation bladder wall (cystitis), formation of telangiectasia(small, thin blood vessels that are dilated or broken, near the surface of the bladder and may bleed) or bladder/genitourinary cancer Blood in bowel movements (stools)- maybe from hemorrhoids, telangiectasia from radiation, colorectal cancer Symptoms that you should bring to the attention of your provider: Difficulty or changes in your urine flow Blood in your urine or stool # ADT: reviewed testosterone level today lower end of normal- may be contributing to ongoing fatigue; expect continued recovery of testosterone level as it's about a year since last Lupron injection. # follow up: Per NCCN guidelines (), PSA and history/physical every 6-12 months X 5 years, then annually. AMI if suspicion of recurrence. PSA may be checked more frequently depending on risk level or other patient specific factors. Next visit: 6 mos with SHANON with PSA, testosterone at [facility] I will call him tomorrow with results of the urinalysis and plan. Amanuel Lomax had the opportunity to ask questions and I answered them to the best of my knowledge. Amanuel Lomax agreed to contact radiation oncology in between visits if he has any questions/concerns or new symptoms in regards to the radiation therapy/prostate cancer Jing Yeh, DNP, ANP, [employer], AOCNP Nurse Practitioner Radiation Oncology documented in this encounter Plan of Treatment Upcoming Encounters Date Type Department Care Team (Late st Contact Info) Description 01/08/2024 1:45 PM EDT TH Visit (TeleHealth) Radiation Oncology at [address] [phone] Zahira Jaffe PA [facility] DR HEMATOLOGY [place] [address] Scheduled Orders Name Type Priority Associated Diagnoses Orde r Schedule PSA (Ultrasensitive) Lab Routine Personal history of prostate cancer Expected: 07/18/2023 (Approximate), Expires: 07/17/2024 Testosterone, total Lab Routine Personal history of prostate cancer Androgen deprivation therapy Expected: 07/18/2023 (Approximate), Expires: 07/17/2024 documented as of this encounter Visit Diagnoses Diagnosis Personal history of prostate cancer- Primary Personal history of malignant neoplasm of prostate Microscopic hematuria History of external beam radiation therapy Androgen deprivation therapy Encounter for therapeutic drug monitoring documented in this encounter Care Teams Char Puller Relationship Specialty Start Date End Date Clara Wood MD [facility] [address] [place] [address] PCP - General Family Medicine 01/26/17 documented as of this encounter
--- OUTSIDE RECORDS SUMMARY | 2023-10-11 01:47 | XMS_ITS | Encounter Summary ---
Author Organization [facility] [place] [address] Care Team Providers Care Trimmer Buffing Wheel Name Role Phone Clara Wood MD Primary Care Provider [phone] Encounter Details Date Type Department Care Team (Late st Contact Info) Description 04/05/2023 [place] [phone] Luisa Chapa RN Social History Tobacco Use Types Packs/Day Years [...] as of this encounter Progress Notes * Luisa Chapa RN - 04/06/2023 10:38 AM EST Call placed to patient, no answer LVM to return call to clinic. Regarding canceling his video visitwith Dr. Camargo and informing him of cystoscopy. Cancel Video visit on 04/10/23. Cysto scheduled for 04/13/23 @ 11 am. Call placed to [facility], CT urogram cancelled. per Dr. Camargo, no further imaging needed. * Luisa Chapa RN - 04/05/2023 1:38 PM EST Request for external order for CT Urogram be sent to [facility]. Patient is scheduled for THV with Dr. Camargo on 04/10/23 to follow up on prostate CA- history of external beam radiation therapy. Per last office visit note with Dr. Camargo on 06/08/20: Assessment: # Prostate cancer, pT3aN0, Grade Group 2, Margin limited (<3mm) anterior apex. Sarah 3 at margin s/p L>R NS RALP / PLND 12/07/2017 with low detectable PSA Plan: # refer to radiation oncology to discuss salvage RT # PSA in 4 months if they decide to continue surveillance Will confirm with Dr. Camargo if CT urogram is needed, pt had a CT abd/pel on 01/31/23 at [facility] (report in media file), images in film library. Patient also had a CT urogram done on 12/31/22 at [facility], results requested. documented in this encounter Miscellaneous Notes * Telephone Encounter - Luisa Chapa RN - 04/05/2023 1:36 PM EST Copied from [facility] #[id number]. Topic: Specialty Dept CRMs - Orders >> Apr 05, 2023 9:52 AM Wali Silverman wrote: Orders Request Specialist: Dr. Camargo Relationship (if other than patient-full name): Kianna-[facility] Type of Request: [x] Send orders Type/Name of Order: Imaging If Labs and Imaging list name of specific test(s): CT urogram needs to be resent as it was dated 01/19/23 and that order was already used. Thewy will also need a creatinine order. Date of Lab/Imaging/Testing Appt: 04/06/23 Date of Provider Appt: 04/10/23 Appt Type with Provider: FUV Patient Requesting to Have Orders Sent to Facility Outside of [facility]: Yes If Yes, Name of Facility: [facility] Address: [address] [place] [address] Phone #: [phone] Fax #: [phone] documented in this encounter Plan of Treatment Upcoming Encounters Date Type Department Care Team (Late st Contact Info) Description 01/08/2024 1:45 PM EDT TH Visit (TeleHealth) Radiation Oncology at [address] [phone] Zahira Jaffe PA [facility] DR HEMATOLOGY [place] [address] documented as of this encounter Visit Diagnoses Not on filedocumented in this encounter Care Teams Trimmer Buffing Wheel Relationship Specialty Start Date End Date Clara Wood MD [address] [place] [address] PCP - General Family Medicine 01/26/17 documented as of this encounter
--- OUTSIDE RECORDS SUMMARY | 2023-10-11 01:47 | XMS_ITS | Encounter Summary ---
Author Organization [facility] [place] [address] Care Team Providers Care Assembly Machine Tender Name Role Phone Clara Wood MD Primary Care Provider Encounter Details Date Type Department Care Team (Latest Contact Info) Description 04/06/2023 Travel Social History Tobacco Use Types Packs/Day Years [...] EDT TH Visit (TeleHealth) Radiation Oncology at [address] [phone] Zahira Jaffe PA [facility] [place]ATOLOGY [place] [address] documented as of this encounter Visit Diagnoses Not on filedocumented in this encounter Care Teams Assembly Machine Tender Relationship Specialty Start Date End Date Clara Wood MD Ebony [address] [place] [phone] PCP - General Family Medicine 01/26/17 documented as of this encounter
--- OUTSIDE RECORDS SUMMARY | 2023-10-11 01:47 | XMS_ITS | Encounter Summary ---
Author Organization [facility] [place] [address] Care Team Providers Care Director Of Pharmacy Name Role Phone Clara Wood MD Primary Care Provider [phone] Encounter Details Date Type Department Care Team (Latest Contact Info) Description 01/15/2023 Travel Social History Tobacco Use Types Packs/Day [...] EDT TH Visit (TeleHealth) Radiation Oncology at [address] [phone] Zahira Jaffe PA [facility] HEMATOLOGY [place] [address] documented as of this encounter Visit Diagnoses Not on filedocumented in this encounter Care Teams Director Of Pharmacy Relationship Specialty Start Date End Date Clara Wood MD Ebony [address] [place] [phone] PCP - General Family Medicine 01/26/17 documented as of this encounter
--- OUTSIDE RECORDS SUMMARY | 2023-10-11 01:47 | XMS_ITS | Encounter Summary ---
Author Organization [facility] [place] [address] Care Team Providers Care Bakery Clerk Name Role Phone Clara Wood MD Primary Care Provider [phone] Encounter Details Date Type Department Care Team (Late Contact Info) Description 01/31/2023 3:50 PM EST Ancillary Procedure [place] [phone] Clara Wood MD [address] [place] [address] [phone] Social History Tobacco Use Types Packs/Day Years [...] Encounters Date Type Department Care Team (Late Contact Info) Description 01/08/2024 1:45 PM EDT TH Visit (TeleHealth) Radiation Oncology at [address] [phone] Zahira Jaffe PA [facility] [place] [address] documented as of this encounter Procedures Procedure Name Priority Date/Time Associated Diagnosis Comments FILM LIBRARY STORAGE ONLY CT ABDOMEN AND PELVIS Routine 01/31/2023 3:47 PM EST documented in this encounter Results * Film Library- Storage Only CT Abdomen & Pelvis (01/31/2023 3:47 PM EST) Narrative [facility] - 01/31/2023 3:47 PM EST This exam is auto-finalizing. It's purpose is for storage only. Clara Wood MD G FILM LIBRARY ORD ERABLES Performing Organization Address City/State/[facility] Co de Phone Number [place], [place] documented in this encounter Visit Diagnoses Not on filedocumented in this encounter Care Teams Bakery Clerk Relationship Specialty Start Date End Date Clara Wood MD [address] [place] [address] PCP - General Family Medicine 01/26/17 documented as of this encounter
--- OUTSIDE RECORDS SUMMARY | 2023-10-11 01:47 | XMS_ITS | Encounter Summary ---
Author Organization [facility] [place] [address] Care Team Providers Care Ostrich Farmer Name Role Phone Clara Wood MD Primary Care Provider [phone] Encounter Details Date Type Department Care Team (Latest Contact Info) Description 04/13/2023 Travel Social History Tobacco Use Types Packs/Day [...] EDT TH Visit (TeleHealth) Radiation Oncology at [address] [phone] Zahira Jaffe PA [facility] [place] [address] documented as of this encounter Visit Diagnoses Not on filedocumented in this encounter Care Teams Ostrich Farmer Relationship Specialty Start Date End Date Clara Wood MD Ebony [address] [place] [phone] PCP - General Family Medicine 01/26/17 documented as of this encounter
--- OUTSIDE RECORDS SUMMARY | 2023-10-11 01:47 | XMS_ITS | Encounter Summary ---
[place] [address] Care Team Providers Care Granite Polisher Name Role Phone Clara Wood MD Primary Care Provider [phone] Reason for Referral * Diagnostic Test (Routine) - Closed Specialty Diagnoses / Procedures Referred By Lobo dean Referred To Contact Urology Diagnoses Gross hematuria Procedures Cystourethroscopy Nabil Camargo MD [facility] [place] [address] [place] [address] Referral ID Status Reason Start Date Expiration Date V isits Requested Visits Authorized [id number] Closed Test Only 04/13/2023 04/12/2024 1 1 Reason for Visit * Diagnostic Test (Routine) - Closed Specialty Diagnoses / Procedures Referred By Lobo dean Referred To Contact Urology Diagnoses Gross hematuria Procedures Cystourethroscopy Nabil Camargo MD [facility] [place] [address] [place] [address] Referral ID Status Reason Start Date Expiration Date V isits Requested Visits Authorized [id number] Closed Test Only 04/13/2023 04/12/2024 1 1 Encounter Details Date Type Department Care Team (Late st Contact Info) Description 04/13/2023 11:00 AM EST [place] [phone] Nabil Camargo MD [facility] [place] [address] Gross hematuria Social History Tobacco Use Types Packs/Day Years [...] Sign Reading Time Taken Comments Blood Pressure 125/81 04/13/2023 11:32 AM EST Pulse 73 04/13/2023 11:32 AM EST Temperature - - Respiratory Rate - - Oxygen Saturation - - Inhaled Oxygen Concentration - - Weight - - Height - - Body Mass Index - - documented in this encounter Patient Instructions * Patient Instructions* Sera Forbes RN - 04/13/2023 11:00 AM EST Instructions following Cystoscopy Activity: As tolerated by your comfort level. Fluids: You should increase your water today. Avoid coffee, tea and cola. You do not need to bkeltj51 ounces of water today. Urination: You will likely have a small amount of blood in your urine for the next several days. This is normal; however, if you are passing large amounts of blood clots or are unable to void please call our office at [phone] before 5PM or [phone] after hours. Please call if: * you have copious blood in your urine * fevers greater than 101.3 F * you are unable to void The number for questions is [phone] before 5 PM weekdays and [phone] after 5 PM and weekends. Follow-up: Monitor bleeding, stay well hydrated. Reach out for worsening of bleeding, issues with urination documented in this encounter Procedure Notes * Nabil Camargo MD - 04/13/2023 11:00 AM ESTAssociated Order(s): CYSTOURETHROSCOPY Procedure(s): CYSTOURETHROSCOPY Pre-Procedure Diagnose(s): Gross hematuria Procedure: Flexible Cystoscopy Surgeon: Nabil Camargo MD Preoperative Diagnosis: Gross hematuria status post radical prostatectomy with salvage radiation completed July 2022 Post Operative Diagnosis: Radiation cystitis Complications: None Procedure: Urinalysis revealed no evidence of an active urinary tract infection. After informed consent was obtained and the external genitalia appropriately cleaned and draped, lidocaine was instilled into the urethra to achieve topical anaesthesia. The flexible telescope was inserted into the urethra and advanced into the bladder under direct vision. The bladder was systematically inspected through 360 degrees with the flexible telescope including retroversion. The anterior urethroscopy was normal. The prostate was surgically absent The ureteral orifices were in normal position and effluxed clear urine. The area around the bladder neck was very erythematous with enlarged superficial vessels and lots of inflammation consistent with radiation cystitis The cystoscope was removed. The patient tolerated the procedure without difficulty. There were no complications. Plan: If he continues to have significant hematuria we will plan hyperbaric oxygen otherwise hydration and symptom control, I made myself available at any time going forward if he has any significant clotsor clot retention and gave him instructions on when to call our clinic Nabil Camargo MD documented in this encounter Plan of Treatment Upcoming Encounters Date Type Department Care Team (Late st Contact Info) Description 01/08/2024 1:45 PM EDT TH Visit (TeleHealth) Radiation Oncology at [address] [phone] Zahira Jaffe PA [facility] DR [place]OLOG[place] [address] documented as of this encounter Procedures Procedure Name Priority Date/Time Associated Diagnosis Comments CYSTOURETHROSCOPY Routine 04/13/2023 11: 00 AM EST Gross hematuria documented in this encounter Results * CYSTOURETHROSCOPY (04/13/2023 11:00 AM EST) Narrative Nabil Camargo MD - 04/13/2023 11:00 AM EST Nabil Camargo MD ? 04/13/2023 ??2:52 PM Procedure: Flexible Cystoscopy Surgeon: Nabil Camargo MD Preoperative Diagnosis: Gross hematuria status post radical prostatectomy with salvage radiation completed July 2022 Post Operative Diagnosis: Radiation cystitis Complications: None Procedure: Urinalysis revealed no evidence of an active urinary tract infection. After informed consent was obtained and the external genitalia appropriately cleaned and draped, lidocaine was instilled into the urethra to achieve topical anaesthesia. The flexible telescope was inserted into the urethra and advanced into the bladder under direct vision. The bladder was systematically inspected through 360 degrees with the flexible telescope including retroversion. The anterior urethroscopy was normal. The prostate was surgically absent The ureteral orifices were in normal position and effluxed clear urine. The area around the bladder neck was very erythematous with enlarged superficial vessels and lots of inflammation consistent with radiation cystitis The cystoscope was removed. The patient tolerated the procedure without difficulty. There were no complications. Plan: If he continues to have significant hematuria we will plan hyperbaric oxygen otherwise hydration and symptom control, I made myself available at any time going forward if he has any significant clots or clot retention and gave him instructions on when to call our clinic Nabil Camargo MD Nabil Camargo MD URO PROCEDURE W RF L ORDERABLES documented in this encounter Visit Diagnoses Diagnosis Gross hematuria documented in this encounter Administered Medications Inactive Administered Medications - up to 3 most recent administrations Medication Order MAR Action Action Date Dose Rate Site ciprofloxacin (Cipro) tablet 500 mg 500 mg, Oral, ONCE, 1 dose, On Sun04/13/23 at 1100, Routine, Indication for (Active or Suspected): Prophylaxis Given 04/13/2023 11:38 AM EST 500 mg documented in this encounter Care Teams Granite Polisher Relationship Specialty Start Date End Date Clara Wood MD [address] [place] [address] PCP - General Family Medicine 01/26/17 documented as of this encounter
--- OUTSIDE RECORDS SUMMARY | 2023-10-11 01:47 | XMS_ITS | Encounter Summary ---
Author Organization [facility] [place] [address] Care Team Providers Care Coat Operator Name Role Phone Clara Wood MD Primary Care Provider [phone] Reason for Referral * Consultation (Routine) - Authorized Specialty Diagnoses / Procedures Referred By Lobo dean Referred To Contact Hyperbaric Medicine Diagnoses Radiation cystitis Malignant neoplasm of prostate S/P radiotherapy Zahira Jaffe PA [facility] [place] [address] [address] Referral ID Status Reason Start Date Expiration Date Visits Requested Visits Authorized [id number] Authorized Consult, Test & Treat Non PCP 07/23/2023 07/22/2024 1 1 Encounter Details Date Type Department Care Team (Late st Contact Info) Description 07/23/2023 Orders Only Radiation Oncology at [address] [phone] Zahira Jaffe PA [facility] [place] [address] Radiation cystitis (Primary Dx); Malignant neoplasm of prostate; S/P radiotherapy Social History Tobacco Use Types [...] as of this encounter Miscellaneous Notes * Addendum Note - Zahira Jaffe PA - 07/23/2023 10:07 AM EDTAddended by: ZAHIRA JAFFE V. on: 07/23/2023 02:21 PM Modules accepted: Orders documented in this encounter Plan of Treatment Upcoming Encounters Date Type Department Care Team (Late st Contact Info) Description 01/08/2024 1:45 PM EDT TH Visit (TeleHealth) Radiation Oncology at [address] [phone] Zahira Jaffe PA [facility] DR [place] [address] Scheduled Referrals Name Type Priority Associated Diagnoses Orde r Schedule Referral to Hyperbaric Medicine Outpatient Referral Routine Radiation cystitis Malignant neoplasm of prostate S/P radiotherapy Ordered: 07/23/2023 documented as of this encounter Visit Diagnoses Diagnosis Radiation cystitis- Primary Irradiation cystitis Malignant neoplasm of prostate S/P radiotherapy Convalescence following radiotherapy documented in this encounter Care Teams Coat Operator Relationship Specialty Start Date End Date Clara Wood MD [facility] [address] [place] [address] PCP - General Family Medicine 01/26/17 documented as of this encounter
--- OUTSIDE RECORDS SUMMARY | 2023-10-11 01:47 | XMS_ITS | Encounter Summary ---
Author Organization [facility] [place] [address] Care Team Providers Care Front Office Clerk Name Role Phone Clara Wood MD Primary Care Provider [phone] Encounter Details Date Type Department Care Team (Late st Contact Info) Description 04/06/2023 Telephone Urology at [facility] [place] [address] Nabil Camargo MD [facility] [place] [address] Social History Tobacco Use Types Packs/Day Years [...] encounter Miscellaneous Notes * Telephone Encounter - Iza Perrin - 04/06/2023 10:43 AM EST Patient returned call from Luisa. This agent informed patient about note from 04-05-23 . Agent cancelled appointment for the per note from yesterday and informed patient about cysto for 04-13-23 documented in this encounter Plan of Treatment Upcoming Encounters Date Type Department Care Team (Late st Contact Info) Description 01/08/2024 1:45 PM EDT TH Visit (TeleHealth) Radiation Oncology at [address] [address] Zahira Jaffe PA [facility] DR HEMATOLOGY [place] [address] documented as of this encounter Visit Diagnoses Not on filedocumented in this encounter Care Teams Front Office Clerk Relationship Specialty Start Date End Date Clara Wood MD [address] [place] [address] PCP - General Family Medicine 01/26/17 documented as of this encounter
--- OUTSIDE RECORDS SUMMARY | 2023-10-11 01:47 | XMS_ITS | Encounter Summary ---
Author Organization [facility] [place] [address] Care Team Providers Care Employment Office Clerk Name Role Phone Clara Wood MD Primary Care Provider [phone] Encounter Details Date Type Department Care Team (Late Contact Info) Description 09/03/2023 Telephone Radiation Oncology at [address] [phone] Analia Soriano Social History Tobacco Use Types Packs/Day Years [...] encounter Miscellaneous Notes * Telephone Encounter - Analia Soriano - 09/03/2023 2:33 PM EDT He was seen at [facility] in [place] on 08/02/23 and has a fuv on 10/04/23 documented in this encounter Plan of Treatment Upcoming Encounters Date Type Department Care Team (Late st Contact Info) Description 01/08/2024 1:45 PM EDT TH Visit (TeleHealth) Radiation Oncology at [address] [phone] Zahira Jaffe PA [facility] DR HEMATOLOGY [place] [address] documented as of this encounter Visit Diagnoses Not on filedocumented in this encounter Care Teams Employment Office Clerk Relationship Specialty Start Date End Date Clara Wood MD [facility] [address] [facility] [address] [place] [address] PCP - General Family Medicine 01/26/17 documented as of this encounter
--- OUTSIDE RECORDS SUMMARY | 2023-10-11 01:47 | XMS_ITS | Encounter Summary ---
Author Organization [facility] [place] [address] Care Team Providers Care Tipple Operator Name Role Phone Clara Wood MD Primary Care Provider [phone] Encounter Details Date Type Department Care Team (Late Contact Info) Description 01/31/2023 3:55 PM EST Ancillary Procedure [place] [phone] Clara Wood MD [address] [place] [address] [address] Social History Tobacco Use Types Packs/Day Years [...] EDT TH Visit (TeleHealth) Radiation Oncology at [address] [phone] Zahira Jaffe PA [facility] [place] [address] documented as of this encounter Procedures Procedure Name Priority Date/Time Associated Diagnosis Comments FILM LIBRARY STORAGE ONLY ULTRASOUND STUDY Routine 01/31/2023 3:47 PM EST documented in this encounter Results * Film Library- Storage Only Ultrasound Study (01/31/2023 3:47 PM EST) Narrative RAD - 01/31/2023 3:47 PM EST This exam is auto-finalizing. It's purpose is for storage only. Clara Wood MD [facility] FILM LIBRARY ORD ERABLES Performing Organization Address City/State/[facility] Co de Phone Number [place], [place] documented in this encounter Visit Diagnoses Not on filedocumented in this encounter Care Teams Tipple Operator Relationship Specialty Start Date End Date Clara Wood MD [address] [place] [address] PCP - General Family Medicine 01/26/17 documented as of this encounter
--- OUTSIDE RECORDS SUMMARY | 2023-10-11 01:47 | XMS_ITS | Encounter Summary ---
[place] [address] Care Team Providers Care Ux Specialist Name Role Phone Clara Wood MD Primary Care Provider [phone] Reason for Referral * Consultation (Routine) - Authorized Specialty Diagnoses / Procedures Referred By Lobo dean Referred To Contact Urology Diagnoses Microscopic hematuria History of external beam radiation therapy Prostate cancer Jing Yeh APRN [facility] [place] [address] [facility] [place] [address] Referral ID Status Reason Start Date Expiration Date Visits Requested Visits Authorized [id number] Authorized Consult, Test & Treat 01/19/2023 01/19/2024 1 1 * Diagnostic Test (Routine) - New Request Specialty Diagnoses / Procedures Referred By Lobo dean Referred To Contact Radiology Diagnoses Microscopic hematuria History of external beam radiation therapy Prostate cancer Procedures CT Urogram Jing Yeh APRN [facility] [place] [address] Referral ID Status Reason Start Date Expiration Date Visits Requested Visits Authorized [id number] New Request Specialty Service Requested 07/20/2024 1 1 Encounter Details Date Type Department Care Team (Late st Contact Info) Description 01/19/2023 Notes Only Radiation Oncology at [facility] [place] [phone] Jing Yeh APRN [facility] [place] [address] Social History Tobacco Use Types Packs/Day Years [...] Progress Notes * Jing Yeh APRN - 01/19/2023 11:17 AM EDT Follow up to my visit with Amanuel on 01/16/23- he reported microscopic hematuria on routine urinalysis as part of wellness visit at [place]. No gross hematuria. I repeated the urinalysis (report scanned into chart)- showed 5-10 RBC. Few bacteria and 5-10 WBC. Culture was done and negative for active inf ection (few bacteria <10,000). I discussed with Amanuel that microscopic hematuria may be related to his previous prostate radiation therapy (causing radiation cystitis or telangiectasias) or may be a cancer such as bladder cancer (Amanuel is a and reports chemical exposure). Next steps are CT urogram and referral to urology for cystoscopy evaluation. He agrees with the plan. He's okay to have [facility] [place] [facility] to Dr. Camargo at [facility] urology (he has seen him in past). RE: elevated urobilinogen in urinalysis at 4.0 (less than 0.2 is normal). I cannot locate any previous urinalysis to compare. Amanuel reports a hx of fatty liver. There is an ultrasound report in hischart 09/04/17 that describes stable fatty infiltration of the liver compared with a 11/26/16 scan. Amanuel states he has significantly reduced his alcohol intake. I will relay this information to his PCP Clara Wood, so that she can follow up on this part of his care. Amanuel and I discussed this. Jing Yeh, DNP, ANP, INDUSTRY CONSULTANT, AOCNP Radiation Oncology documented in this encounter Plan of Treatment Upcoming Encounters Date Type Department Care Team (Late st Contact Info) Description 01/08/2024 1:45 PM EDT TH Visit (TeleHealth) Radiation Oncology at [address] [phone] Zahira Jaffe PA [facility] DR [place] [address] Scheduled Orders Name Type Priority Associated Diagnoses Orde r Schedule CT Urogram Imaging Routine Microscopic hematuria History of external beam radiation therapy Prostate cancer Expected: 01/26/2023 (Approximate), Expires: 01/20/2024 Scheduled Referrals Name Type Priority Associated Diagnoses Orde r Schedule Referral to Urology Outpatient Referral Routine Microscopic hematuria History of external beam radiation therapy Prostate cancer Ordered: 01/19/2023 documented as of this encounter Visit Diagnoses Diagnosis Microscopic hematuria- Primary History of external beam radiation therapy Prostate cancer Malignant neoplasm of prostate documented in this encounter Care Teams Ux Specialist Relationship Specialty Start Date End Date Clara Wood MD [address] [place] [address] PCP - General Family Medicine 01/26/17 documented as of this encounter
--- OUTSIDE RECORDS SUMMARY | 2023-10-11 01:47 | XMS_ITS | Encounter Summary ---
Author Organization [facility] [place] [address] Care Team Providers Care Air Transportation Provider Name Role Phone Clara Wood MD Primary Care Provider [phone] Encounter Details Date Type Department Care Team (Late st Contact Info) Description 04/05/2023 [place] [phone] Luisa Chapa RN Social History Tobacco Use [...] Progress Notes * Luisa Chapa RN - 04/05/2023 7:51 AM EST Order faxed to number provided. documented in this encounter Miscellaneous Notes * Telephone Encounter - Luisa Chapa RN - 04/05/2023 7:49 AM EST Copied from CRM #[id number]. Topic: Specialty Dept CRMs - Generic Call >> Apr 04, 2023 3:44 PM Angella Duncan wrote: Specialist: [facility] orders not at facility Relationship (if other than patient-full name): patient Reason for Call: Patient called stating he just spoke with [facility] out of [place], [place] and they claim to have never received his CT Urogram, please call to assist in having order sent before end of day so he can have this done before his 04/10/[address]. [address] Urogram to . documented in this encounter Plan of Treatment Upcoming Encounters Date Type Department Care Team (Late st Contact Info) Description 01/08/2024 1:45 PM EDT TH Visit (TeleHealth) Radiation Oncology at [address] [phone] Zahira Jaffe PA [facility] DR HEMATOLOGY [place] [address] documented as of this encounter Visit Diagnoses Not on filedocumented in this encounter Care Teams Air Transportation Provider Relationship Specialty Start Date End Date Clara Wood MD [address] [place] [address] PCP - General Family Medicine 01/26/17 documented as of this encounter
--- OUTSIDE RECORDS SUMMARY | 2023-10-11 01:47 | XMS_ITS | Clinical Summary ---
Author Organization [facility] [place] [address] Care Team Providers Care Pipe Threading Machine Operator Name Role Phone Clara Wood MD Primary Care Provider [phone] Allergies No known active allergies Medications Medication Sig Dispensed Refills Start Date End Date Status lisinopriL (Prinivil;Zestril) 40 mg Tablet Take 40 mg by mouth daily. Active chlorthalidone (Hygroten) 25 mg Tablet 25 mg daily. 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 Hiatal hernia 11/30/2016 Esophageal ulcer 10/16/2012 Hematemesis 10/16/2012 Resolved Problems Problem Noted Date Diagnosed Date Resolved Date GI bleed 11/28/2016 11/30/2016 Melena 10/16/2012 11/30/2016 Encounters Date Type Department Care Team Description 09/03/2023 Telephone Radiation Oncology at [address] [phone] Analia Soriano 07/23/2023 Orders Only Radiation Oncology at [address] [phone] Zahira Jaffe PA Radiation cystitis (Primary Dx); Malignant neoplasm of prostate; S/P radiotherapy 07/19/2023 1:45 PM EDT TH Visit (TeleHealth) Radiation Oncology at [address] [phone] Zahira Jaffe PA Malignant neoplasm of prostate (Primary Dx); S/P radiotherapy from Last 3 Months Immunizations Name Administration Dates Next Due Influenza PF, Split 01/22/2017(Deferred: Patient Refused) Social History Tobacco Use Types [...] on file Sexual Orientation Not on file Last Filed Vital Signs Vital Sign Reading Time Taken Comments Blood Pressure 125/81 04/13/2023 11:32 AM EST Pulse 73 04/13/2023 11:32 AM EST Temperature 37 ??C (98.6 ??F) 01/16/2023 2:29 PM EDT Respiratory Rate 18 01/16/2023 2:29 PM EDT Oxygen Saturation 97% 01/16/2023 2:29 PM EDT Inhaled Oxygen Concentration - - Weight 92.3 kg (203 lb 6.4 oz) 01/16/2023 2:29 P M EDT Height 175.3 cm (5' 9.02) 01/16/2023 2:29 PM ED T Body Mass Index 30.02 01/16/2023 2:29 PM EDT Plan of Treatment Upcoming Encounters Date Type Department Care Team (Late st Contact Info) Description 01/08/2024 1:45 PM EDT TH Visit (TeleHealth) Radiation Oncology at [address] [phone] Zahira Jaffe PA [facility] HEMATOLOGY [place] [address] Health Maintenance Due Date Last Done Comments CT Colonography 1955 FIT DNA 1955 FIT 1955 Sigmoidoscopy 1955 Hepatitis C Screening 1972 Lipid Screening 1972 Tdap adult 1973 Tetanus vaccine 1973 Zoster vaccine (1 of 2) 2004 Advance Directive 2009 AAA Screen 2019 Pneumoccocal Vaccine: 65+ (1 of 1 - PCV) 2019 Diabetes Screening (HgbA1C o r Glucose) 12/09/2020 12/09/2017, 12/08/2017, 10/18/2017, Additional history exists Covid-19 Vaccine (1 - 2022-2 4 season) 2022 Colonoscopy 12/04/2022 12/04/2012, 11/24, 10/16/2012 Colorectal Cancer Screening 12/04/2022 Sigmoidoscopy (10 year) with FIT yearly 12/04/2022 12/04/2012, 12/04/2012, 10/16/2012 Influenza (Flu) vaccine (1 o f 1 - Influenza standard series) 11/25/2023 Procedures Procedure Name Priority Date/Time Associated Diagnosis Comments LAB SCAN 07/23/2023 12:00 AM EDT LAB SCAN 07/17/2023 12:00 AM EDT LAB SCAN 07/16/2023 12:00 AM EDT BASIC METABOLIC PANEL (NON-FASTING) Timed 12/09/2017 2:16 AM EDT COLONOSCOPY Routine 12/04/2012 12:05 PM EDT from Last 3 Months or Most Recently Relevant to Health Maintenance Results * SCAN DOC: LAB (07/23/2023 12:00 AM EDT) Only the most recent of3 resultswithin the time period is included. Narrative 07/23/2023 12:00 AM EDT Ordered by an unspecified provider. Scanning Provider MEDIA MGR SCAN EXT O RDR/RSLT * (ABNORMAL) Basic Metabolic Panel (non-fasting) (12/09/2017 2:16 AM EDT) Glucose Lvl 119 65 - 199 mg/dL [facility] Comment:Diabetes: >=200 mg/d L plus symptoms BUN 19 10 - 20 mg/dL [facility] Creatinine 0.98 0.80 - 1.50 mg/dL [facility] Sodium 142 135 - 145 mmol/L [facility] Potassium 4.2 3.5 - 5.0 mmol/L [facility] Comment: Please note: ??Patients with WBC >100,000 may have falsely elevated Potassium levels. ??For accurate Potassium quantification in these patients send serum separator tube (gold top) for subsequent determinations. ??Contact the Clinical Chemistry Laboratory if there are any questions. Chloride 108(H) 98 - 107 mmol/L [facility] CO2 25 22 - 31 mmol/L [facility] Anion Gap 9 5 - 15 mmol/L [facility] Calcium 8.0(L) 8.5 - 10.5 mg/dL [facility] Estimated GFR 82 >=60 mL/min/1. 73 m?? [facility] Comment: The eGFR was calculated using the CKD-EPI equation. As with all creatinine based estimates of kidney function, eGFR values calculated with the CKD-EPI equation are not accurate in patients with acute kidney failure, extremes of body mass or the acutely ill. http://Biodesy/AMVONETnkf eGFR 95 >=60 mL/min/1. 73 m?? [facility] Comment: The eGFR was calculated using the CKD-EPI equation. As with all creatinine based estimates of kidney function, eGFR values calculated with the CKD-EPI equation are not accurate in patients with acute kidney failure, extremes of body mass or the acutely ill. http://Biodesy/DHnkf Blood specimen (specimen) 12/09/2017 2:16 AM EDT 12/09/2017 2:37 AM EDT Narrative Resulting Agency Comment Spec In Lab Nabil Camargo MD CHEMISTRY ORDERABL ES [facility] [place] [address] * COLONOSCOPY (12/04/2012 12:05 PM EDT) COLONOSCOPY [facility] ___ Patient Name: Amanuel Hussein ? Procedure Date: 12/04/2012 12:05 PM ? Date of : 1955 ? Age: 57 ? Order #: [id number] ? ___ Procedure: ? Colonoscopy Indications: ? Melena Providers: ? Real Jones MD, Keena Borja RN, ? Enid Almaguer, Clinical Studies Specialist Referring MD: ?Marin Patton MD Requesting Provider: Catalina Iverson APRN Medicines: ? Midazolam 2 mg IV, Fentanyl 100 ? micrograms IV, Diphenhydramine 50 mg ? IV Complications: ? No immediate complications. ___ Procedure: ? The procedure, indications, benefits, ? risks and alternatives were explained ? to the patient. Specifically ? discussed were potential ? complications including, but not ? limited to, bleeding, perforation, ? infection, missing a cancer, and ? adverse medication reactions. The ? patient was placed in the left ? lateral decubitus position, and a ? digital rectal exam was performed. ? The Colonoscope was inserted in the ? anus and under direct visualization, ? advanced to the terminal ileum. ? Careful inspection was made as the ? colonoscope was withdrawn. The ? colonoscopy was performed without ? difficulty. The patient tolerated the ? procedure well. The quality of the ? bowel preparation was good. ? Findings: ? The terminal ileum appeared normal. ? The cecum appeared normal. ? The ascending colon appeared normal. ? The transverse colon appeared normal. ? The descending colon appeared normal. ? The sigmoid colon appeared normal. ? The rectum appeared normal. ? Impression: ?- The examined portion of the ileum ? was normal. ? - The cecum is normal. ? - The ascending colon is normal. ? - The transverse colon is normal. ? - The descending colon is normal. ? - The sigmoid colon is normal. ? - The rectum is normal. Recommendation: ?- Repeat colonoscopy in 10 years for ? surveillance. ? - Return to primary care physician as ? previously scheduled. ? Attending Participation: ? I personally performed the entire procedure. ? Real Jones MD 12/04/2012 12:49 PM This report has been signed electronically. Number of Addenda: 0 Note Initiated On: 12/04/2012 12:05 PM PROVATION 12/04/2012 12:0 5 PM EDT Marin Patton MD GENERAL SURGICAL ORD ERABLES PROVATION from Last 3 Months or Most Recently Relevant to Health Maintenance Advance Directives Documents on File Type Date Recorded Patient Welding Manager Expl anation Personal Welding Manager 03/14/2017 2:18 PM Nata Lomax * Full Code (Latest Code Status on File) Date Activated Date Inactivated Comments 12/07/2017 10:02 AM 12/09/2017 6:27 PM Question Answer Comments Does patient have capacity to make decision: Yes * Full Code Date Activated Date Inactivated Comments 02/28/2017 12:13 PM 03/01/2017 8:43 PM Question Answer Comments Does patient have capacity to make decision: Yes * Full Code Date Activated Date Inactivated Comments 02/28/2017 6:16 AM 02/28/2017 12:13 PM Question Answer Comments Does patient have capacity to make decision: Yes * Full Code Date Activated Date Inactivated Comments 11/28/2016 4:46 PM 11/30/2016 4:12 PM Question Answer Comments Does patient have capacity to make decision: Yes Care Teams Pipe Threading Machine Operator Relationship Specialty Start Date End Date Clara Wood MD [facility] [address] [place] [address] PCP - General Family Medicine 01/26/17
--- OUTSIDE RECORDS SUMMARY | 2023-10-11 01:47 | XMS_ITS | Encounter Summary ---
Author Organization [facility] [place] [address] Care Team Providers Care Barrel Polisher Inside Name Role Phone Clara Wood MD Primary Care Provider [phone] Encounter Details Date Type Department Care Team (Late st Contact Info) Description 03/29/2023 Notes Only Radiation Oncology at [facility] [place] [address] Jing Yeh APRN [facility] [place] [address] Social History Tobacco Use Types Packs/Day Years [...] Progress Notes * Jing Yeh APRN - 03/29/2023 6:04 PM EST Amanuel called me on 03/28/23 to let me know he received my letter. He reports that he called urologyX 2 but has not heard back about an appointment. He now has intermittent visible blood on his urinary pad. I contacted the urology department directly and explained that he now has visible urinary blood and needs to be scheduled to see someone in urology for cystoscopy evaluation sooner. Jing Yeh, DNP, ANP, DEMURRAGE WORKER, AOCNP Radiation Oncology documented in this encounter Plan of Treatment Upcoming Encounters Date Type Department Care Team (Late st Contact Info) Description 01/08/2024 1:45 PM EDT TH Visit (TeleHealth) Radiation Oncology at [address] [phone] Zahira Jaffe PA [facility] DR [place] [address] documented as of this encounter Visit Diagnoses Not on filedocumented in this encounter Care Teams Barrel Polisher Inside Relationship Specialty Start Date End Date Clara Wood MD [address] [place] [address] PCP - General Family Medicine 01/26/17 documented as of this encounter
--- OUTSIDE RECORDS SUMMARY | 2023-10-11 01:48 | XMS_ITS | Encounter Summary ---
Author Organization [facility] [place] [address] Care Team Providers Care Certified Orthotist Name Role Phone Clara Wood MD Primary Care Provider [phone] Encounter Details Date Type Department Care Team (Late st Contact Info) Description 06/03/2020 Telephone Urology at [facility] [place] [address] Nabil Camargo MD [facility] [place] [address] Social History Tobacco Use Types Packs/Day Years [...] encounter Miscellaneous Notes * Telephone Encounter - Clover Garcia - 06/03/2020 8:38 AM EST [facility] requested order for PSA pt was at the lab. Routed order to [facility]. documented in this encounter Plan of Treatment Upcoming Encounters Date Type Department Care Team (Late st Contact Info) Description 01/08/2024 1:45 PM EDT TH Visit (TeleHealth) Radiation Oncology at [address] [phone] Zahira Jaffe PA [facility] HEMATOLOGY [place] [address] documented as of this encounter Visit Diagnoses Not on filedocumented in this encounter Care Teams Certified Orthotist Relationship Specialty Start Date End Date Clara Wood MD [facility] VALENTINE MUNOZ [facility] 1 [place] [address] PCP - General Family Medicine 01/26/17 documented as of this encounter
--- OUTSIDE RECORDS SUMMARY | 2023-10-11 01:48 | XMS_ITS | Encounter Summary ---
Author Organization [facility] [place] [address] Care Team Providers Care Computer Systems Design Analyst Name Role Phone Clara Wood MD Primary Care Provider [phone] Reason for Visit * Reason Comments Injections Lupron 7.5mg * Treatment/Therapy Plan Authorization (Routine) - Authorized Specialty Diagnoses / Procedures Referred By Conttere t Referred To Contact Hematology and Oncology Diagnoses Prostate cancer Procedures TC LEUPROLIDE ACETATE 7.5MG, FOR DEPOST SUSPENSION (LUPRON DEPOT) J9217 Lupron Depot Michel Yip MD [address] [place] [address] [place] [address] Stj Hem Onc Infusion [address] [place] [phone] Referral ID Status Reason Start Date Expiration Date V isits Requested Visits Authorized [id number] Authorized 05/05/2021 09/15/2022 99 99 Encounter Details Date Type Department Care Team (Late st Contact Info) Description 06/08/2021 1:00 PM EDT Infusion Hematology Oncology at [address] [address] Prostate cancer Social History Tobacco Use Types Packs/Day Years [...] as of this encounter Progress Notes * Isabela Montanez RN - 06/08/2021 1:00 PM [...] EDT TH Visit (TeleHealth) Radiation Oncology at [address] [phone] Zahira Jaffe PA [facility] DR [place] [address] documented as of this encounter Visit Diagnoses Diagnosis Prostate cancer Malignant neoplasm of prostate documented in this encounter Administered Medications Inactive Administered Medications - up to 3 most recent administrations Medication Order MAR Action Action Date Dose Rate Site leuprolide (Lupron Depot) injection 7.5 mg 7.5 mg, Intramuscular, ONCE, 1 dose, On Sun06/08/21 at 1230, Routine, This agent is restricted to outpatient use. Is this drug being given as an outpatient? Yes Given 06/08/2021 12:30 PM EDT 7.5 mg Left Gluteal documented in this encounter Care Teams Computer Systems Design Analyst Relationship Specialty Start Date End Date lCara Wood MD [facility] VALENTINE ROSEN 1 [place] [address] PCP - General Family Medicine 01/26/17 documented as of this encounter
--- OUTSIDE RECORDS SUMMARY | 2023-10-11 01:48 | XMS_ITS | Encounter Summary ---
Author Organization [facility] [place] [address] Care Team Providers Care Seating And Mobility Technologist Name Role Phone Clara Wood MD Primary Care Provider [phone] Encounter Details Date Type Department Care Team (Late st Contact Info) Description 07/07/2020 Telephone Urology at [facility] [place] [place] [address] Nabil Camargo MD [facility] [place] [address] Social History Tobacco Use Types Packs/Day Years [...] encounter Miscellaneous Notes * Telephone Encounter - Nabil Camargo MD - 07/07/2020 11:12 AM EDT I called Amanuel back to discuss some questions he had regarding his possible salvage radiation treatment specifically if and when to pull the trigger based on his PSA trends. I explained that he is in a tough situation as is often times very difficult to distinguish between benign PSA rise following surgery and recurrent disease given the low PSA values were looking at. I explained that it wouldbe completely reasonable to continue trending the PSA as the value is still quite low and there is good evidence that as long as radiation is administered in a relatively timely fashion the long-termcancer specific outcomes are essentially equivalent versus early and delayed salvage radiation but that would also be completely reasonable to proceed with salvage treatment considering the PSA rise. I explained that the decision is quite difficult as there is no other test we have that is available to distinguish between recurrent disease and a benign [...] TH Visit (TeleHealth) Radiation Oncology at [address] [address] Zahira Jaffe PA [facility] DR HEMATOLOGY [place] [address] documented as of this encounter Visit Diagnoses Not on filedocumented in this encounter Care Teams Seating And Mobility Technologist Relationship Specialty Start Date End Date Clara Wood MD [facility] ROSEN 1 [place] [address] PCP - General Family Medicine 01/26/17 documented as of this encounter
--- OUTSIDE RECORDS SUMMARY | 2023-10-11 01:48 | XMS_ITS | Encounter Summary ---
Author Organization [facility] [place] [address] Care Team Providers Care Dive Superintendent Name Role Phone Clara Wood MD Primary Care Provider [phone] Encounter Details Date Type Department Care Team (Late st Contact Info) Description 12/26/2022 Orders Only Radiation Oncology at [address] [phone] Zahira Jaffe PA [facility] HEMATOLOGY [place] [address] Prostate cancer Social History Tobacco Use Types [...] EDT TH Visit (TeleHealth) Radiation Oncology at [address] [phone] Zahira Jaffe PA [facility] HEMATOLOGY [place] [address] documented as of this encounter Visit Diagnoses Diagnosis Prostate cancer Malignant neoplasm of prostate documented in this encounter Care Teams Dive Superintendent Relationship Specialty Start Date End Date Clara Wood MD [facility] VALENTINE MUNOZ [facility] 1 [place] [address] PCP - General Family Medicine 01/26/17 documented as of this encounter
--- OUTSIDE RECORDS SUMMARY | 2023-10-11 01:48 | XMS_ITS | Encounter Summary ---
Author Organization [facility] [place] [address] Care Team Providers Care Roll Tube Setter Name Role Phone Clara Wood MD Primary Care Provider [phone] Encounter Details Date Type Department Care Team (Late st Contact Info) Description 04/28/2021 Orders Only Radiation Oncology at [address] [phone] Michel Yip MD [address] [place] [address] DR RADIATION ONCOLOGY [place], [place] [phone] Prostate cancer Social History Tobacco Use Types [...] EDT TH Visit (TeleHealth) Radiation Oncology at [address] [phone] Zahira Jaffe PA [facility] DR [place] [address] documented as of this encounter Visit Diagnoses Diagnosis Prostate cancer Malignant neoplasm of prostate documented in this encounter Care Teams Roll Tube Setter Relationship Specialty Start Date End Date Clara Wood MD [facility] VALENTINE MUNOZ [facility] 1 [place] [address] PCP - General Family Medicine 01/26/17 documented as of this encounter
--- OUTSIDE RECORDS SUMMARY | 2023-10-11 01:48 | XMS_ITS | Encounter Summary ---
Author Organization [facility] [place] [address] Care Team Providers Care Tour Narrator Name Role Phone Clara Wood MD Primary Care Provider [phone] Reason for Visit * Consultation (Routine) - Closed Specialty Diagnoses / Procedures Referred By Lobo dean Referred To Contact Radiation Oncology Diagnoses Prostate cancer Procedures Simulation for Radiation Therapy Planning Michel Yip MD [address] [place] [address] [place] [address] St Rad Onc Office [address] [place] [phone] Referral ID Status Reason Start Date Expiration Date V isits Requested Visits Authorized [id number] Closed Consult, Test & Treat 05/05/2021 05/05/2022 39 39 Encounter Details Date Type Department Care Team (Late st Contact Info) Description 06/08/2021 11:30 AM EDT Ancillary Appointment Radiation Oncology at [address] [phone] Michel Yip MD [address] [place] [address] [place] [address] Social History Tobacco Use Types Packs/Day Years [...] as of this encounter Progress Notes * Michel Yip MD - 06/08/2021 11:30 AM EDT Simulation Note for External Beam Radiation Treatment Planning [facility] Lukasz Lomax is a 66 y.o. year old male with high risk prostate cancer who was simulated for definitive radiotherapy to the pelvis and prostate bed today. No changes were made from the plan as documented in the original simulation order and instructions. After confirming informed consent, a retrograde urethrogram was performed using a small amount of contrast dye, and then a 2.5mm slice thickness CT scan of the patient's pelvis was obtained. This scan was performed to delineate both target volumes and organs/structures at risk. These images will beused to create a customized treatment plan employing multileaf collimators and beams-eye view to treat the target to prescription dose while maximally sparing organs at risk, with the overall goal ofmaximizing the likelihood of a favorable disease response while minimizing the likelihood of any short term side effects or long term care administrator complications of therapy. I anticipate his prescription dose will be 70.2 Gy to the prostate bed, delivered in daily 1.8 Gy fractions over the course of 8 weeks. Anticipate therapy to begin within the next 10 days. Furthermore, I anticipate this patient will require IMRT or VMAT treatment planning and delivery as the critical treatment volume of interest (in this case, pelvic [...] EDT TH Visit (TeleHealth) Radiation Oncology at [address] [phone] Zahira Jaffe PA [facility] [place] [address] Scheduled Orders Name Type Priority Associated Diagnoses Orde r Schedule Simulation for Radiation Therapy Planning Procedures Routine Prostate cancer Ordered: 05/05/2021 documented as of this encounter Visit Diagnoses Not on filedocumented in this encounter Care Teams Tour Narrator Relationship Specialty Start Date End Date Clara Wood MD [address] [place] [address] [facility] 1 [place] [address] PCP - General Family Medicine 01/26/17 documented as of this encounter
--- OUTSIDE RECORDS SUMMARY | 2023-10-11 01:48 | XMS_ITS | Encounter Summary ---
Author Organization [facility] [place] [address] Care Team Providers Care Service Order Clerk Name Role Phone Clara Wood MD Primary Care Provider [phone] Encounter Details Date Type Department Care Team (Late st Contact Info) Description 06/23/2021 3:30 PM EDT Office Visit Radiation Oncology at [address] [phone] Michel Yip MD [address] [place] [address] [place] [address] Prostate cancer Social History Tobacco Use Types [...] 36.6 ??C (97.9 ??F) 06/23/2021 3:00 PM ED T Respiratory Rate 16 06/23/2021 3:00 PM EDT Oxygen Saturation 97% 06/23/2021 3:00 PM EDT Inhaled Oxygen Concentration - - Weight 94.2 kg (207 lb 9.6 oz) 06/23/2021 3:00 P M EDT Height - - Body Mass Index 30.66 04/23/2018 7:39 AM EST documented in this encounter Progress Notes * Michel Yip MD - 06/23/2021 3:30 PM EDT Images from the original note were not included. RADIATION ONCOLOGY - Weekly On Treatment Visit Note 06/23/21 MICHEL YIP MD Radiation Oncology [facility] [phone] (paging deoiling machine operator) Pager #[phone] PATIENT IDENTIFICATION Name Amanuel Lomax Date of [...] since last seen. Started today. 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 GI No diarrhea. Nocturia 2 x/nt [...] ( Mild LUTS) 2 ( Mild LUTS) MEDICATIONS Medications 06/23/21 1543 Medication Sig [...] anticipated. Continue as planned. Next Lupron due week of 07/04. Followup: Return to clinic next week for on treatment check. documented in this encounter Plan of Treatment Upcoming Encounters Date Type Department Care Team (Late st Contact Info) Description 01/08/2024 1:45 PM EDT TH Visit (TeleHealth) Radiation Oncology at [address] [phone] Zahira Jaffe PA [facility] HEMATOLOGY [place] [address] documented as of this encounter Visit Diagnoses Diagnosis Prostate cancer Malignant neoplasm of prostate documented in this encounter Care Teams Service Order Clerk Relationship Specialty Start Date End Date Clara Wood MD [address] [facility] 1 [place] [address] PCP - General Family Medicine 01/26/17 documented as of this encounter
--- OUTSIDE RECORDS SUMMARY | 2023-10-11 01:48 | XMS_ITS | Encounter Summary ---
Author Organization [facility] [place] [address] Care Team Providers Care Buncher Machine Name Role Phone Clara Wood MD Primary Care Provider [phone] Encounter Details Date Type Department Care Team (Late st Contact Info) Description 07/28/2021 8:30 AM EDT Office Visit Radiation Oncology at [address] [phone] Michel Yip MD [address] [place] [address] [place] [address] Prostate cancer Social History Tobacco [...] 36.4 ??C (97.5 ??F) 07/28/2021 8:00 AM ED T Respiratory Rate 16 07/28/2021 8:00 AM EDT Oxygen Saturation 98% 07/28/2021 8:00 AM EDT Inhaled Oxygen Concentration - - Weight 88.9 kg (196 lb) 07/28/2021 8:00 AM EDT Height - - Body Mass Index 28.94 04/23/2018 7:39 AM EST documented in this encounter Progress Notes * Michel Yip MD - 07/28/2021 8:30 AM EDT Images from the original note were not included. 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 Fatigue from last weeks vaccinations [...] LUTS) 2 ( Mild LUTS) MEDICATIONS Medications 07/28/21 0836 Medication Sig Taking? calcium-vitamin D3 600 mg-10 [...] TH Visit (TeleHealth) Radiation Oncology at [address] [phone] Zahira Jaffe V., [facility] DR HEMATOLOGY [place] [address] documented as of this encounter Visit Diagnoses Diagnosis Prostate cancer Malignant neoplasm of prostate documented in this encounter Care Teams Buncher Machine Relationship Specialty Start Date End Date Clara Wood MD [facility] ROSEN 1 [place] [address] PCP - General Family Medicine 01/26/17 documented as of this encounter
--- OUTSIDE RECORDS SUMMARY | 2023-10-11 01:48 | XMS_ITS | Encounter Summary ---
Author Organization [facility] [place] [address] Care Team Providers Care Silk Printer Name Role Phone Clara Wood MD Primary Care Provider [phone] Encounter Details Date Type Department Care Team (Late st Contact Info) Description 06/13/2019 Telephone Urology at [facility] [place] [address] Nabil Camargo MD [facility] [place] [address] Social History Tobacco Use Types Packs/Day Years [...] 06/13/2019 12:39 PM EDT I called Amanuel Duncan Dami to discuss his upcoming Urology appointment. I explained that due tothe COVID-19 pandemic we are making attempts to decrease the amount of non-urgent patients seen in our clinic and hospital to both decrease the risk of transmission of the virus and conserve vital resources. I personally reviewed his medical records including pertinent imaging and labs. After review I do feel that his upcoming appointment is medically urgent and therefore I recommended we plan FUV with the next 3 months with a PSA. I thanked him for his understanding and cooperation. documented in this encounter Plan of Treatment Upcoming Encounters Date Type Department Care Team (Late st Contact Info) Description 01/08/2024 1:45 PM EDT TH Visit (TeleHealth) Radiation Oncology at [address] [phone] Zahira Jaffe PA [facility] DR [place] [address] documented as of this encounter Visit Diagnoses Not on filedocumented in this encounter Care Teams Silk Printer Relationship Specialty Start Date End Date Clara Wood MD [facility] VALENTINE ROSEN 1 [place] [address] PCP - General Family Medicine 01/26/17 documented as of this encounter
--- OUTSIDE RECORDS SUMMARY | 2023-10-11 01:48 | XMS_ITS | Encounter Summary ---
Author Organization [facility] [place] [address] Care Team Providers Care Data Center Manager Name Role Phone Clara Wood MD Primary Care Provider Encounter Details Date Type Department Care Team (Late st Contact Info) Description 07/14/2021 7:40 AM EDT Office Visit Radiation Oncology at [address] [phone] Navi Leal MD [facility] [place] [address] Prostate cancer Social History Tobacco Use Types [...] 36.5 ??C (97.7 ??F) 07/14/2021 7:56 AM ED T Respiratory Rate 16 07/14/2021 7:56 AM EDT Oxygen Saturation 99% 07/14/2021 7:56 AM EDT Inhaled Oxygen Concentration - - Weight 89.8 kg (198 lb) 07/14/2021 7:56 AM EDT Height - - Body Mass Index 29.24 04/23/2018 7:39 AM EST documented in this encounter Progress Notes * Navi Leal MD - 07/14/2021 7:40 AM EDT Images from the original note were not included. 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 No hot flashes. Does note some fatigue on his ADT. Due for another Lupron soon. Blood work has not been tested since April. Started ADT in May. GI Some increase in BM with RT solo frequency with metamucil. Not needing Imodium. Around 1-2 BMs daily. No constipation. No blood MS. Nocturia has increased, up to 3-4x nightly; [...] LUTS) 2 ( Mild LUTS) MEDICATIONS Medications 07/08/21 1011 Medication Sig [...] TH Visit (TeleHealth) Radiation Oncology at [address] [phone] Zahira Jaffe PA [facility] DR [place] [address] documented as of this encounter Visit Diagnoses Diagnosis Prostate cancer Malignant neoplasm of prostate documented in this encounter Care Teams Data Center Manager Relationship Specialty Start Date End Date Clara Wood MD [facility] VALENTINE MUNOZ [facility] 1 [place] [address] PCP - General Family Medicine 01/26/17 documented as of this encounter
--- OUTSIDE RECORDS SUMMARY | 2023-10-11 01:48 | XMS_ITS | Encounter Summary ---
Author Organization [facility] [place] [address] Care Team Providers Care Steam Clothes Press Operator Name Role Phone Clara Wood MD Primary Care Provider [phone] Reason for Visit * Reason Comments Other Lupron 7.5 mg * Treatment/Therapy Plan Authorization (Routine) - Authorized Specialty Diagnoses / Procedures Referred By Conttere t Referred To Contact Hematology and Oncology Diagnoses Prostate cancer Procedures TC LEUPROLIDE ACETATE 7.5MG, FOR DEPOST SUSPENSION (LUPRON DEPOT) [id number] Lupron Depot Michel Yip MD [address] [place] [address] [place] [address] Stj Hem Onc Infusion [address] [place] [phone] Referral ID Status Reason Start Date Expiration Date V isits Requested Visits Authorized [id number] Authorized 05/05/2021 09/15/2022 99 99 Encounter Details Date Type Department Care Team (Late st Contact Info) Description 07/14/2021 8:00 AM EDT Infusion Hematology Oncology at [address] [phone] Prostate cancer Social History Tobacco [...] as of this encounter Progress Notes * Yisel Mendez RN - 07/14/2021 8:00 AM [...] EDT TH Visit (TeleHealth) Radiation Oncology at [address] [phone] Zahira Jaffe PA [facility] DR [place] [address] documented as of this encounter Visit Diagnoses [...] being given as an outpatient? Yes Given 07/14/2021 8:24 AM EDT 7.5 mg Ri ght Gluteal documented in this encounter Care Teams Steam Clothes Press Operator Relationship Specialty Start Date End Date Clara Wood MD [facility] 1 [place] [address] PCP - General Family Medicine 01/26/17 documented as of this encounter
--- OUTSIDE RECORDS SUMMARY | 2023-10-11 01:48 | XMS_ITS | Encounter Summary ---
Author Organization [facility] [place] [address] Care Team Providers Care Cashier Courtesy Booth Name Role Phone Clara Wood MD Primary Care Provider [phone] Reason for Visit * Reason Comments Injections Lupron * Treatment/Therapy Plan Authorization (Routine) - Authorized Specialty Diagnoses / Procedures Referred By Lobo dean Referred To Contact Hematology and Oncology Diagnoses Prostate cancer Procedures TC LEUPROLIDE ACETATE 7.5MG, FOR DEPOST SUSPENSION (LUPRON DEPOT) [id number] Lupron Depot Michel Yip MD [address] [place] [address] [place] [address] [facility] Hem Onc Infusion [address] [place] [phone] Referral ID Status Reason Start Date Expiration Date V isits Requested Visits Authorized [id number] Authorized 05/05/2021 09/15/2022 99 99 Encounter Details Date Type Department Care Team (Late st Contact Info) Description 09/08/2021 2:30 PM EDT Infusion Hematology Oncology at [address] [phone] Prostate cancer Social History Tobacco [...] 36.5 ??C (97.7 ??F) 09/08/2021 2:28 PM ED T Respiratory Rate 16 09/08/2021 2:28 PM EDT Oxygen Saturation 99% 09/08/2021 2:28 PM EDT Inhaled Oxygen Concentration - - Weight - - Height - - Body Mass Index - - documented in this encounter Progress Notes * Claudette Matos RN - 09/08/2021 2:30 PM [...] EDT TH Visit (TeleHealth) Radiation Oncology at [address] [phone] Zahira Jaffe PA [facility] DR [place] [address] documented as of this encounter Visit Diagnoses [...] being given as an outpatient? Yes Given 09/08/2021 2:41 PM EDT 7.5 mg Le ft Gluteal documented in this encounter Care Teams Cashier Courtesy Booth Relationship Specialty Start Date End Date Clara Wood MD [facility] VALENTINE ROSEN 1 [place] [address] PCP - General Family Medicine 01/26/17 documented as of this encounter
--- OUTSIDE RECORDS SUMMARY | 2023-10-11 01:48 | XMS_ITS | Encounter Summary ---
Author Organization [facility] [place] [address] Care Team Providers Care Newsagent Name Role Phone Clara Wood MD Primary Care Provider [phone] Encounter Details Date Type Department Care Team (Late st Contact Info) Description 07/21/2021 8:10 AM EDT Office Visit Radiation Oncology at [address] [phone] Michel Yip MD [address] [place] [address] [place] [address] Prostate cancer Social History Tobacco [...] 36.7 ??C (98.1 ??F) 07/21/2021 8:00 AM ED T Respiratory Rate 16 07/21/2021 8:00 AM EDT Oxygen Saturation 98% 07/21/2021 8:00 AM EDT Inhaled Oxygen Concentration - - Weight 90.4 kg (199 lb 6.4 oz) 07/21/2021 8:00 A M EDT Height - - Body Mass Index 29.45 04/23/2018 7:39 AM EST documented in this encounter Progress Notes * Michel Yip MD - 07/21/2021 8:10 AM EDT Images from the original note were not included. 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 Had COVID and shingles booster this week, so pretty tired. GI Diarrhea well controlled w Imodium. [...] LUTS) 2 ( Mild LUTS) MEDICATIONS Medications 07/21/21 0832 Medication Sig [...] TH Visit (TeleHealth) Radiation Oncology at [address] [phone] Zahira Jaffe PA [facility] [place] [address] documented as of this encounter Visit Diagnoses Diagnosis Prostate cancer Malignant neoplasm of prostate documented in this encounter Care Teams Newsagent Relationship Specialty Start Date End Date Clara Wood MD [facility] [address] [place] [address] PCP - General Family Medicine 01/26/17 documented as of this encounter
--- OUTSIDE RECORDS SUMMARY | 2023-10-11 01:48 | XMS_ITS | Encounter Summary ---
Author Organization [facility] [place] [address] Care Team Providers Care Contact Center Representative Name Role Phone Clara Wood MD Primary Care Provider [phone] Reason for Visit * Reason Comments Chemotherapy Monthly lupron * Treatment/Therapy Plan Authorization (Routine) - Authorized Specialty Diagnoses / Procedures Referred By Lobo dean Referred To Contact Hematology and Oncology Diagnoses Prostate cancer Procedures TC LEUPROLIDE ACETATE 7.5MG, FOR DEPOST SUSPENSION (LUPRON DEPOT) [id number] Lupron Depot Michel Yip MD [address] [place] [address] [place] [address] St Hem Onc Infusion [address] [place] [phone] Referral ID Status Reason Start Date Expiration Date V isits Requested Visits Authorized [id number] Authorized 05/05/2021 09/15/2022 99 99 Encounter Details Date Type Department Care Team (Late st Contact Info) Description 08/12/2021 8:30 AM EDT Infusion Hematology Oncology at [address] [phone] Prostate cancer Social History Tobacco [...] 36.4 ??C (97.5 ??F) 08/12/2021 8:08 AM ED T Respiratory Rate 16 08/12/2021 8:08 AM EDT Oxygen Saturation 97% 08/12/2021 8:08 AM EDT Inhaled Oxygen Concentration - - Weight - - Height - - Body Mass Index - - documented in this encounter Progress Notes * Yisel Mendez RN - 08/12/2021 8:30 AM [...] TH Visit (TeleHealth) Radiation Oncology at [address] [phone] Zahira Jaffe PA [facility] HEMATOLOGY [place] [address] documented as of this encounter Visit Diagnoses [...] being given as an outpatient? Yes Given 08/12/2021 8:19 AM EDT 7.5 mg Ri ght Gluteal documented in this encounter Care Teams Contact Center Representative Relationship Specialty Start Date End Date Clara Wood MD [address] [place] [address] PCP - General Family Medicine 01/26/17 documented as of this encounter
--- OUTSIDE RECORDS SUMMARY | 2023-10-11 01:48 | XMS_ITS | Encounter Summary ---
Author Organization [facility] [place] [address] Care Team Providers Care Early Intervention School Psychologist Name Role Phone Clara Wood MD Primary Care Provider [phone] Encounter Details Date Type Department Care Team (Late st Contact Info) Description 08/19/2021 Notes Only Radiation Oncology at [address] [phone] Michel Yip MD [address] [place] [place] [address] DR RADIATION ONCOLOGY [place], [place] [phone] Social History Tobacco Use Types Packs/Day Years [...] TH Visit (TeleHealth) Radiation Oncology at [address] [phone] Zahira Jaffe PA [facility] DR [place]OLOG[place] [address] documented as of this encounter Visit Diagnoses Not on filedocumented in this encounter Care Teams Early Intervention School Psychologist Relationship Specialty Start Date End Date Clara Wood MD [address] [place] [address] PCP - General Family Medicine 01/26/17 documented as of this encounter
--- OUTSIDE RECORDS SUMMARY | 2023-10-11 01:48 | XMS_ITS | Encounter Summary ---
Author Organization [facility] [place] [address] Care Team Providers Care Slat Basket Maker Helper Machine Name Role Phone Clara Wood MD Primary Care Provider [phone] Encounter Details Date Type Department Care Team (Late st Contact Info) Description 06/08/2021 11:00 AM EDT Office Visit Radiation Oncology at [address] [phone] Michel Yip MD [address] [place] [address] [place] [address] Prostate cancer Social History Tobacco [...] 36.5 ??C (97.7 ??F) 06/08/2021 10:00 AM E DT Respiratory Rate 16 06/08/2021 10:00 AM EDT Oxygen Saturation 97% 06/08/2021 10:00 AM EDT Inhaled Oxygen Concentration - - Weight 92.7 kg (204 lb 6.4 oz) 06/08/2021 10:00 AM EDT Height - - Body Mass Index 30.18 04/23/2018 7:39 AM EST documented in this encounter Progress Notes * Michel Yip MD - 06/08/2021 11:00 AM EDT Radiation Oncology Established Patient Followup Note Michel Yip MD, [place] [facility] Patient Identification: Amanuel Lomax is a 66 [...] 11/2017 (pT3a, Gl 3+4, preop PSA 12, +focalSM Gl 3), rising PSA postop - most recently 0.08 (04/2021). We discussed a PSMA scan today - but given he has a positive surgical margin and his overall low PSA I think it is likely to be of low yield. Today we also reviewed the rationale, logistics, early toxicities and late complications associatedwith salvage radiotherapy to the pelvis and prostate bed. Toxicities discussed include radiation cystitis, enteritis and/or proctitis. halfway complications were also reviewed. Informed consent was [...] EDT TH Visit (TeleHealth) Radiation Oncology at [address] [phone] Zahira Jaffe PA [facility] [place] [address] documented as of this encounter Visit Diagnoses Diagnosis Prostate cancer Malignant neoplasm of prostate documented in this encounter Care Teams Slat Basket Maker Helper Machine Relationship Specialty Start Date End Date Clara Wood MD [facility] [address] [place] [address] PCP - General Family Medicine 01/26/17 documented as of this encounter
--- OUTSIDE RECORDS SUMMARY | 2023-10-11 01:48 | XMS_ITS | Encounter Summary ---
Author Organization [facility] [place] [address] Care Team Providers Care Associate Director Career Services Name Role Phone Clara Wood MD Primary Care Provider [phone] Encounter Details Date Type Department Care Team (Late Contact Info) Description 03/01/2020 [place] [phone] Uma Monzon LNA Social History Tobacco Use Types Packs/Day Years [...] encounter Miscellaneous Notes * Telephone Encounter - Uma Monzon LNA - 03/01/2020 10:01 AM EST Called patient to review allergies and medication. LVM letting him know there is no need to call usback, we will review the day of. documented in this encounter Plan of Treatment Upcoming Encounters Date Type Department Care Team (Late st Contact Info) Description 01/08/2024 1:45 PM EDT TH Visit (TeleHealth) Radiation Oncology at [address] [phone] Zahira Jaffe PA [facility] DR [place] [address] documented as of this encounter Visit Diagnoses Not on filedocumented in this encounter Care Teams Associate Director Career Services Relationship Specialty Start Date End Date Clara Wood MD [facility] [address] [facility] [address] [place] [address] PCP - General Family Medicine 01/26/17 documented as of this encounter
--- OUTSIDE RECORDS SUMMARY | 2023-10-11 01:48 | XMS_ITS | Encounter Summary ---
Author Organization [facility] [place] [address] Care Team Providers Care Oncology Registrar Name Role Phone Clara Wood MD Primary Care Provider [phone] Encounter Details Date Type Department Care Team (Late st Contact Info) Description 03/10/2021 3:30 PM EST TH Visit (TeleHealth) Radiation Oncology at [address] [phone] Michel Yip MD [address] [place] [address] [place] [address] Prostate cancer Social History Tobacco [...] Progress Notes * Michel Yip MD - 03/10/2021 3:30 PM [...] EDT TH Visit (TeleHealth) Radiation Oncology at [address] [phone] Zahira Jaffe PA [facility] DR [place] [address] documented as of this encounter Visit Diagnoses Diagnosis Prostate cancer Malignant neoplasm of prostate documented in this encounter Care Teams Oncology Registrar Relationship Specialty Start Date End Date Clara Wood MD [facility] [address] [place] [address] PCP - General Family Medicine 01/26/17 documented as of this encounter
--- OUTSIDE RECORDS SUMMARY | 2023-10-11 01:48 | XMS_ITS | Encounter Summary ---
Author Organization [facility] [place] [address] Care Team Providers Care Bar Turner Name Role Phone Clara Wood MD Primary Care Provider [phone] Encounter Details Date Type Department Care Team (Late st Contact Info) Description 08/19/2021 8:00 AM EDT Notes Only Radiation Oncology at [address] [phone] Michel Yip MD [address] [place] [place] [address] [place] [address] Social History Tobacco Use Types [...] Progress Notes * Michel Yip MD - 08/19/2021 8:00 AM EDT Images from the original note were not included. [facility] Medicine Radiation Oncology Radiation Therapy Completion Note [...] he was largely asymptomatic at the time ofpresentation. Future assessment will be determined via serial PSA. Follow up plan: Follow-up visit with Radiation Oncology in [facility] is scheduled for 10/06/21 for Lupron and routine post-procedural symptom check; he has received instructions to call this office or seek the help of the local emergency room if any further problems should arise prior to followup. MICHEL YIP MD 08/19/2021 ??? National [facility] [place] (NCI) Comprehensive Cancer [facility] ??? [employer] Commission on Cancer ([employer] [place]) Accredited Cancer Program ??? [employer] (ACR) Accredited Radiation Oncology Program documented in this encounter Plan of Treatment Upcoming Encounters Date Type Department Care Team (Late st Contact Info) Description 01/08/2024 1:45 PM EDT TH Visit (TeleHealth) Radiation Oncology at [address] [phone] Zahira Jaffe PA [facility] DR HEMATOLOGY [place] [address] documented as of this encounter Visit Diagnoses Not on filedocumented in this encounter Care Teams Bar Turner Relationship Specialty Start Date End Date Clara Wood MD [address] [place] [address] PCP - General Family Medicine 01/26/17 documented as of this encounter
--- OUTSIDE RECORDS SUMMARY | 2023-10-11 01:48 | XMS_ITS | Encounter Summary ---
Author Organization [facility] [place] [address] Care Team Providers Care Middle School Volleyball Coach Name Role Phone Clara Wood MD Primary Care Provider [phone] Encounter Details Date Type Department Care Team (Late st Contact Info) Description 06/08/2021 Notes Only Radiation Oncology at [address] [phone] Fiordaliza Echeverria FLEET MAINTENANCE FOREMAN OFFICE OF CARE MANAGEMENT Social History Tobacco Use Types Packs/Day Years [...] as of this encounter Progress Notes * Fiordaliza Echeverria MSW - 06/08/2021 12:14 PM EDT Reason for Referral: Brief assessment of social and emotional needs. Met with pt after his sim today to introduce myself and role of vp digital marketing social media and crm to assess/address barriers to getting to and throughtreatments; address support needs and connect with community services and resources as needed. Family/Social Supports: Pt identified his as his primary support. They have 5 daughter and none live local. They have 6 grandchildren and one on the way. Living Situation/Daily Activities/Transportation: Pt manages his daily chores and activities. He does not expect any issues with transportation. He is expecting 8 weeks of treatments. 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 He plans to continue to work through his treatments. He has [employer] for insurance. Advance Directives: Pt believes he completed his advance directive for his PCP. Requested a copy for his record. Utilization of Community Resources: None at this time. Adjustment to Illness/Mental Health Concerns: Pt indicated he is coping well. He has support from his family. Identified Needs: Pt did not identify any specific needs at this time. Referrals: None at this time. Social Work Interventions: Brief assessment Supportive Counseling Plan: Informed pt of FLEET MAINTENANCE FOREMAN availability and contact information. Will follow to assess/address psychosocial needs. MONE Khan, FINISHING RANGE OPERATOR, OSW-C Product Merchandiser [facility] documented in this encounter Plan of Treatment Upcoming Encounters Date Type Department Care Team (Late st Contact Info) Description 01/08/2024 1:45 PM EDT TH Visit (TeleHealth) Radiation Oncology at [address] [phone] Zahira Jaffe PA [facility] [place] [address] documented as of this encounter Visit Diagnoses Not on filedocumented in this encounter Care Teams Middle School Volleyball Coach Relationship Specialty Start Date End Date Clara Wood MD [address] [place] [address] PCP - General Family Medicine 01/26/17 documented as of this encounter
--- OUTSIDE RECORDS SUMMARY | 2023-10-11 01:48 | XMS_ITS | Encounter Summary ---
Author Organization [facility] [place] [address] Care Team Providers Care Demolition Hammer Operator Name Role Phone Clara Wood MD Primary Care Provider [phone] Reason for Referral * Consultation (Routine) - Specialty Diagnoses / Procedures Referred By Lobo dean Referred To Contact Radiation Oncology Diagnoses Prostate cancer Procedures Simulation for Radiation Therapy Planning Neto Yip MD [address] [place] [address] [place] [address] St Rad Onc Office [address] [place] [phone] Referral ID Status Reason Start Date Expiration Date V isits Requested Visits Authorized [id number] Consult, Test & Treat 07/20/2020 10/19/2020 39 39 Reason for Visit * Consultation (Routine) - Closed Specialty Diagnoses / Procedures Referred By Conttere dean Referred To Contact Radiation Oncology Diagnoses Malignant neoplasm of prostate Nabil Camargo MD [facility] [place] [address] St Rad Onc Office [address] [place] [phone] Referral ID Status Reason Start Date Expiration Date V isits Requested Visits Authorized [id number] Closed Consult, Test & Treat 06/08/2020 06/08/2021 1 1 Encounter Details Date Type Department Care Team (Late st Contact Info) Description 07/02/2020 10:00 AM EDT TH Visit (TeleHealth) Radiation Oncology at [address] [place] [address] Neto Yip MD [address] [place] [address] [place] [address] Prostate cancer Social History Tobacco Use Types [...] documented as of this encounter Patient Instructions * Patient Instructions* Neto Yip MD - 07/02/2020 10:[address] Mary Jo Pastrana asked for me to see you to discuss how radiation therapy can be used to treat your prostate cancer and this note is to recap our discussion regarding use of radiation treatments. As your radiation oncologist, I work closely with your other healthcare providers and most importantly, withyou to make sure that the treatments we discuss and offer keep your personal preferences and goals in mind. We discussed the following next steps as part of your cancer evaluation and/or treatment: Reason for Radiation Treatments: Dr. Camargo asked you to see me to discuss post-operative radiation for your prostate cancer for 3 major reasons: first, your PSA is now detectable and seems to be rising. The second is the fact that you had prostate cancer extending outside of your prostate. The third is that there was prostate cancer left behind by the surgery (a positive margin). We know fromseveral studies that if we treat the area where the prostate used to be (the prostate bed), it reduces the likelihood of prostate cancer coming back and [...] cancer uses testosterone as a fuel for growth.The duration of anti-hormone therapy varies according to [...] PSA that is rising relatively slowly, I believehormonal therapy could likely be safely avoided. Mapping scan to plan your radiation treatments: Your radiation therapy will involve using high energy radiation which kills cancer but also normal healthy tissues. In order to make sure the radiation goes to the cancerous tissues and to also avoid radiating the normal tissues, we design radiationbeams beams into special shapes which come from various different directions. Because no two peopleand no two cancers are completely identical, the radiation plan we create for you will be unique toyou and your body. In order to figure out how many beams to use, how much radiation to give, which angles they should come from, and how they should be shaped, we have asked you to undergo a mapping scan here in our department known as a CT simulation, or CT sim, for short. This is essentially a CAT-scan similar to scans which you may have received before, but slightly different in a few ways: First, it allows us to place you in the exact same position which you should expect to be placed during each of your radiation treatment sessions. Second, it lets us better understand where the radiation targets and the normal tissues that we want to avoid exist, in relation to each other and the radiation beams. Following this scan, we then perform additional calculations and measurements to create the absolute best plan possible for you. Depending on the complexity of the plan, these processescan take from just few hours to several days, and for [...] are tolerating radiation treatments and so that wecan monitor your response to treatment. If you need to see me any other day, one of my colleagues or I would be happy to see you - just ask one of the radiation therapists or radiation nurses for assi stance. Side Effects: We talked about the risks of radiation which primarily include irritative symptoms ofthe bowel and bladder, which may result in more frequent urination and bowel movements. The incontinence you are experiencing will stop improving once radiation starts (and this is why we wait until you have fully recovered from surgery). Impotence that you are experiencing after surgery will not improve after from radiation. The main short term side effects of anti- hormone therapy are hot flashes, mood swings, fatigue, and decreased sexual interest / impotence, which improves once the therapy is discontinued. MCC risks include loss of muscle/strength, weight gain, and possibly osteoporosis. Please do not hesitate to call me at [phone] with any other questions or concerns you have. IfI am not here, one of our radiation oncology nurses can assist you or help you get in touch with me. A Radiation Oncology doctor is also environmental services supervisor after our normal hours and on weekends for urgent questions or concerns related to radiation treatments that can not wait until normal business hours. To reach the on-call doctor after-hours, just call and have the pot press operator page the Radiation Oncologist environmental services supervisor. And, as always, if you experience any life-threatening emergencies which any include the following,you need to seek emergency care immediately by calling 586: 1. Sudden and unexpected breathing difficulty without any exertion 2. Sudden onset of chest pain 3. Sudden onset of severe pain or uncontrolled pain 4. Sudden onset of severe weakness and/or unable to walk 5. Sudden new onset of a seizure 6. Fall resulting in injury 7. Uncontrollable bleeding Neto Aguero MD Household Assistantretail mortgage banker Radiation Oncology [facility] documented in this encounter Progress Notes * Neto Yip MD - 07/02/2020 10:00 AM EDT Images from the original note were not included. Radiation Oncology Prostate Cancer Telephone Consult Note Neto Yip MD, MS [facility] [phone] TELE-CONSULTATION DESCRIPTION Based on the recommendations from the [facility] in the setting of the COVID19 pandemic, [...] : 1955 REFERRING PROVIDER: Nabil Camargo MD [facility] [place] [address] [place] [address] REASON FOR CONSULTATION : Cancer Staging Prostate cancer Staging form: Prostate, AJCC 8th Edition - Pathologic: Stage IIIB (pT3a, pN0, cM0, PSA: 12, Grade Group: 2) - Signed by Neto Yip MDon 07/01/2020 HISTORY OF PRESENT ILLNESS: 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 PSA History: 07/2017 - 12.4 11/2017 - <<RALP>> 02/2018 - <0.01 05/2018 - <0.01 09/2018 - 0.02 11/2018 - 0.02 08/2019 - 0.03 02/2020 - 0.04 05/2020 - 0.05 Surgical Pathology Results: Procedure: ??Radical prostatectomy Tumor ?Histologic Type: ?? Acinar adenocarcinoma ?Histologic Grade ? Primary Sarah Pattern: ?? Pattern 3 ? Secondary Sarah [...] of Extraprostatic Extension (EPE): Not identified ? [place] Pattern at Positive Margin(s): Pattern 3 Lymph Nodes ?Number of Lymph Nodes Involved: ?? 0 ?Number of Lymph Nodes Examined: ?3 Pathologic Stage Classification (pTNM, AJCC 8th Edition) ?Primary Tumor (pT): ?? pT3a ?Regional Lymph Nodes (pN): ?? pN0 Prior consultations / recommendations: Dr Camargo 06/08/20 - Prostate cancer, pT3aN0, Grade Group 2, Margin limited (<3mm) anterior apex. [place] 3 at margins/p L>R NS RALP / PLND 12/07/2017 with low detectable PSA # refer to radiation oncology to discuss salvage RT # PSA in 4 months if they decide to continue surveillance Prior to starting today's phone consultation, I informed Amanuel that this does constitute a billable visit, and that [facility] would be submitting a claim [...] conducted with this patient and is otherwise negative except as documented above. Baseline KATHERYN and IPSS [...] DIAGNOSTIC performed by Real Jones MD at [facility] ENDOSCOPY ??? PRO LAP, PELVIC LYMPHADENECTOMY Bilateral 12/07/2017 LAPAROSCOPY,WITH BILATERAL TOTAL PELVIC LYMPHADENECTOMY, ROBOTIC (WRVU 12) performed by Nabil Camargo MD at [facility] MAIN OR ??? PRO LAP, PROSTATECTOMY, RADICAL, W/NERVE SPARE N/A 12/07/2017 LAPAROSCOPIC PROSTATECTOMY, ROBOTICS ASSISTED (WRVU 21.36) performed by Nabil Camargo MD at [facility] MAIN OR ??? PRO LAPAROSCOPY, SURG, REPAIR PARAESOPHAGEAL HERNIA, W/O IMPLANTATION OF MESH N/A 02/28/2017 ROBOT XI LAPAROSCOPIC PARAESOPHAGEAL HERNIA REPAIR W/FUNDOPLASTY,W/O MESH (WRVU 26.6) performed by Al Ortiz MD at [facility] MAIN OR ??? PRO UPPER GI ENDOSCOPY, BIOPSY 12/04/2012 UPPER GASTROINTESTINAL ENDOSCOPY,WITH BIOPSY SINGLE OR MULTIPLE performed by Real Jones MD at [facility] ENDOSCOPY ??? PRO UPPER GI ENDOSCOPY, BIOPSY N/A 11/29/2016 UPPER GASTROINTESTINAL ENDOSCOPY,WITH BIOPSY SINGLE OR MULTIPLE (WRVU 2.49) performed by Kaiser Doyle MD at [facility] ENDOSCOPY ??? PRO UPPER GI ENDOSCOPY, BIOPSY N/A 04/23/2018 UPPER GASTROINTESTINAL ENDOSCOPY,WITH BIOPSY SINGLE OR MULTIPLE (WRVU 2.49) performed by Kaiser Doyle MD at [facility] ENDOSCOPY ??? PRO UPPER GI ENDOSCOPY, DIAGNOSTIC N/A 02/28/2017 EGD, UPPER GI ENDOSCOPY performed by Al Ortiz MD at [facility] MAIN OR ??? PRO UPPER GI ENDOSCOPY, DIAGNOSTIC N/A 04/23/2018 EGD, UPPER GI ENDOSCOPY performed by Kaiser Doyle MD at [facility] ENDOSCOPY CONTRAINDICATIONS TO RADIATION THERAPY: None ?? Prior radiation therapy: No ?? Active Lupus: No ?? Systemic Scleroderma: No MEDICATIONS / ALLERGIES (per the medical record - not reviewed/updated with the patient): Medications 07/02/20 0968 Medication Sig Taking? chlorthalidone (Hygroten) 25 mg [...] in 11/2017, most recently 0.05 in 05/2020. Postoperativelyhis PSA did albertina to zero. He has not technically met the definition of biochemical failure. Axumin scan was not discussed given the overall low PSA. Today we reviewed the risks, benefits, rationale, implications and alternatives of the various management options. With regard to his radiation option, I reviewed salvage external beam therapy vs close observation. He understands that treatment is offered based on his multiple high risk features, notably detectable PSA, T3 disease and positive surgical margins. Randomized data suggests a survivalbenefit to postoperative radiotherapy in these situations. Arguing against immediate RT at least are his low-grade disease at the margins, low overall PSA and slow doubling time (>1yr). In the short term, I reviewed the common irritative bowel and bladder side effects associated with all forms of radiotherapy. In the jail, I explained there is an approximately 2% chance of serious bladder or rectal toxicity as well as a very low risk of inducing a secondary malignancy. I alsoreviewed that with radiation there are few reliable salvage curative options. I also reviewed the role of short-term ADT (6 months based on RTOG 0534 and GETUG-16). The caveat is that with his low PSA he would not have been eligible for those trials, so it is difficult to extrapolate results. Further, it was only Sarah 3 disease noted at the surgical margin, for which we would also not routinely offer ADT in the definitive setting. So, if he should he decline ADT I feel that would be a reasonable decision. I reviewed side [...] visit as above NETO YIP MD, MS * Verónica Hanna RN - 07/02/2020 10:00 AM EDT Radiation Oncology Nurse Telephone Note [place], [place] RADIATION ONCOLOGY NURSING INITIAL NURSING ASSESSMENT [...] if 4 or above SOCIAL ASSESSMENT: See ED social assessment information entered. Support Systems: lives with Barriers to treatment: none Referrals/Interventions: workers compensation consultant visit on day per routine. RADIATION SPECIFIC TEACHING:Will provide the following information on simulation day [facility] Radiation Therapy and You Site specific teaching :pelvis Other: PLAN: Per Dr Yip documented in this encounter Plan of Treatment Upcoming Encounters Date Type Department Care Team (Late st Contact Info) Description 01/08/2024 1:45 PM EDT TH Visit (TeleHealth) Radiation Oncology at [address] [phone] Zahira Jaffe PA [facility] DR HEMATOLOGY [place] [address] Scheduled Orders Name Type Priority Associated Diagnoses Orde r Schedule Simulation for Radiation Therapy Planning Procedures Routine Prostate cancer Ordered: 07/02/2020 documented as of this encounter Visit Diagnoses Diagnosis Prostate cancer Malignant neoplasm of prostate documented in this encounter Care Teams Demolition Hammer Operator Relationship Specialty Start Date End Date Clara Wood MD [address] [place] [address] PCP - General Family Medicine 01/26/17 documented as of this encounter
--- OUTSIDE RECORDS SUMMARY | 2023-10-11 01:48 | XMS_ITS | Encounter Summary ---
Author Organization [facility] [place] [address] Care Team Providers Care Custom Applicator Name Role Phone Clara Wood MD Primary Care Provider [phone] Encounter Details Date Type Department Care Team (Latest Contact Info) Description 09/08/2019 2:20 PM EDT Laboratory Appointment Lab [address] [place] [phone] Malignant neoplasm of prostate Social History Tobacco Use Types Packs/Day Years [...] TH Visit (TeleHealth) Radiation Oncology at [address] [phone] Zahira Jaffe PA [facility] HEMATOLOGY [place] [address] documented as of this encounter Procedures Procedure Name Priority Date/Time Associated Diagnosis Comments HC PROSTATE SPECIFIC ANTIGEN STAT 09/08/2019 2:07 PM EDT Malignant neoplasm of prostate documented in this encounter Results * PSA (Ultrasensitive) (09/08/2019 2:07 PM EDT) PSA Total (Ultrasensitiv e) 0.03 0.00 - 4.00 ng/mL [facility] Blood specimen (specimen) 09/08/2019 2:07 PM EDT 09/08/2019 2:17 PM EDT Narrative Resulting Agency Comment Spec In Lab Nabil Camargo MD CHEMISTRY ORDERABL ES [facility] [place] [phone] documented in this encounter Visit Diagnoses Diagnosis Malignant neoplasm of prostate documented in this encounter Care Teams Custom Applicator Relationship Specialty Start Date End Date Clara Wood MD [facility] [address] [place] [address] PCP - General Family Medicine 01/26/17 documented as of this encounter
--- OUTSIDE RECORDS SUMMARY | 2023-10-11 01:48 | XMS_ITS | Encounter Summary ---
Author Organization [facility] [place] [address] Care Team Providers Care Fireworks Assembly Supervisor Name Role Phone Clara Wood MD Primary Care Provider [phone] Encounter Details Date Type Department Care Team (Late st Contact Info) Description 07/21/2020 11:00 AM EDT Office Visit Radiation Oncology at [address] [phone] Michel Yip MD [address] [place] [address] [place] [address] Prostate cancer Social History Tobacco [...] Progress Notes * Michel Yip MD - 07/21/2020 11:00 AM [...] (0.05 in 05/2020) and presence of only [place] 3 disease at a small, focal margin. [...] EDT TH Visit (TeleHealth) Radiation Oncology at [address] [phone] Zahira Jaffe PA [facility] HEMATOLOGY [place] [address] documented as of this encounter Visit Diagnoses Diagnosis Prostate cancer Malignant neoplasm of prostate documented in this encounter Care Teams Fireworks Assembly Supervisor Relationship Specialty Start Date End Date Clara Wood MD [address] [place] [address] PCP - General Family Medicine 01/26/17 documented as of this encounter
--- OUTSIDE RECORDS SUMMARY | 2023-10-11 01:48 | XMS_ITS | Encounter Summary ---
Author Organization [facility] [place] [address] Care Team Providers Care Telegraph Editor Name Role Phone Clara Wood MD Primary Care Provider [phone] Encounter Details Date Type Department Care Team (Late st Contact Info) Description 09/08/2019 3:20 PM EDT [place] [address] Nabil Camargo MD [facility] [place] [address] Malignant neoplasm of prostate Social History Tobacco [...] documented in this encounter Progress Notes * Nabil Camargo MD - 09/08/2019 3:20 PM [...] file Gets together: Not on file Attends yazidism service: Not on file Active member of [...] Group 2, Margin limited (<3mm) anterior apex. [place] 3 at margin s/p L>R NS RALP [...] incalculable PSADT. We will plan to repeat PSA in 6 months. 20 minutes spent in counseling and coordination of care documented in this encounter Plan of Treatment Upcoming Encounters Date Type Department Care Team (Late st Contact Info) Description 01/08/2024 1:45 PM EDT TH Visit (TeleHealth) Radiation Oncology at [address] [phone] Zahira Jaffe PA [facility] DR [place] [address] documented as of this encounter Visit Diagnoses Diagnosis Malignant neoplasm of prostate documented in this encounter Care Teams Telegraph Editor Relationship Specialty Start Date End Date Clara Wood MD [facility] [address] [place] [address] PCP - General Family Medicine 01/26/17 documented as of this encounter
--- OUTSIDE RECORDS SUMMARY | 2023-10-11 01:48 | XMS_ITS | Encounter Summary ---
Author Organization [facility] [place] [address] Care Team Providers Care Lead Infrastructure Architect Name Role Phone Clara Wood MD Primary Care Provider [phone] Encounter Details Date Type Department Care Team (Late st Contact Info) Description 07/08/2021 9:45 AM EDT Office Visit Radiation Oncology at [address] [phone] Anupam Addison MD [facility] [place] [address] Prostate cancer Social History Tobacco Use Types [...] kg (200 lb 6.4 oz) 07/08/2021 9:00 A M EDT Height - - Body Mass Index 29.59 04/23/2018 7:39 AM EST documented in this encounter Patient Instructions * Patient Instructions* Anupam Addison MD - 07/08/2021 10:34 AM EDT Regarding your bowel movements, in the weeks ahead there may be a tendency for the bowels to loosen. To help prevent this, we suggest the following: (1) Please begin a daily probiotic. These may be found over the counter. We don't recommend any onein particular, though best to use a product from a reputable core driller helper. (2) Generally, a lower fiber diet helps slow the stools. Please review attached recommendations. (3) Once you are cutting back on fiber in your diet, please begin daily metamucil, one teaspoon, powdered form, in water or juice at breakfast. For your bone health, please begin calcium 600 mg twice daily with meals. Also, please take VitaminD 400-800 IUs daily. These may be found as a combination tablet, if you wish. Also, we will set up a DEXA scan shortly, to double-check your bone density. Please call with any questions or concerns at any time. documented in this encounter Progress Notes * Anupam Addison MD - 07/08/2021 9:45 AM EDT Images from the original note were not included. 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 No hot flashes. Does note some fatigue on his ADT. Due for another Lupron soon. Blood work has not been tested since April. Started ADT in May. GI Frequency increased, around 4-5 BMs daily. Softer and looser over the past week, but no kortney diarrhea. No constipation. No blood HI. Nocturia has increased, up to 3-4x nightly; [...] EDT TH Visit (TeleHealth) Radiation Oncology at [address] [phone] Zahira Jaffe PA [facility] [place] [address] documented as of this encounter Visit Diagnoses Diagnosis Prostate cancer Malignant neoplasm of prostate documented in this encounter Care Teams Lead Infrastructure Architect Relationship Specialty Start Date End Date Clara Wood MD [facility] [address] [place] [address] PCP - General Family Medicine 01/26/17 documented as of this encounter
--- OUTSIDE RECORDS SUMMARY | 2023-10-11 01:48 | XMS_ITS | Encounter Summary ---
Author Organization [facility] [place] [address] Care Team Providers Care Quilt Sewer Name Role Phone Clara Wood MD Primary Care Provider [phone] Reason for Visit * Consultation (Routine) - Specialty Diagnoses / Procedures Referred By Lobo dean Referred To Contact Radiation Oncology Diagnoses Prostate cancer Procedures Simulation for Radiation Therapy Planning Michel Yip MD [address] [place] [address] DR [place] [address] St Rad Onc Office [address] [place] [phone] Referral ID Status Reason Start Date Expiration Date V isits Requested Visits Authorized [id number] Consult, Test & Treat 07/20/2020 10/19/2020 39 39 Encounter Details Date Type Department Care Team (Late st Contact Info) Description 07/21/2020 11:30 AM EDT Ancillary Appointment Radiation Oncology at [address] [phone] Michel Yip MD [address] [place] [address] DR [place] [address] Social History Tobacco Use Types [...] Notes * Michel Yip MD - 07/21/2020 11:30 AM EDT Today's simulation was cancelled. Please refer to preceding clinic note. documented in this encounter Plan of Treatment Upcoming Encounters Date Type Department Care Team (Late st Contact Info) Description 01/08/2024 1:45 PM EDT TH Visit (TeleHealth) Radiation Oncology at [address] [phone] Zahira Jaffe PA [facility] HEMATOLOGY [place] [address] Scheduled Orders Name Type Priority Associated Diagnoses Orde r Schedule Simulation for Radiation Therapy Planning Procedures Routine Prostate cancer Ordered: 07/02/2020 documented as of this encounter Visit Diagnoses Not on filedocumented in this encounter Care Teams Quilt Sewer Relationship Specialty Start Date End Date Clara Wood MD [facility] [address] [place] [address] PCP - General Family Medicine 01/26/17 documented as of this encounter
--- OUTSIDE RECORDS SUMMARY | 2023-10-11 01:48 | XMS_ITS | Encounter Summary ---
Author Organization [facility] [place] [address] Care Team Providers Care Carver Hand Name Role Phone Clara Wood MD Primary Care Provider [phone] Encounter Details Date Type Department Care Team (Late st Contact Info) Description 03/09/2020 8:00 AM EST TH Visit (TeleHealth) [place] [address] Nabil Camargo MD [facility] [place] [address] Malignant neoplasm of prostate Social History Tobacco [...] as of this encounter Progress Notes * Nabil Camargo MD - 03/09/2020 8:00 AM [...] 2, Margin + limited (<3mm) anterior apex. [place] 3 at margin. Overall, he is doing [...] file Gets together: Not on file Attends muslim service: Not on file Active member of [...] (TeleHealth) Radiation Oncology at [address] [phone] Zahira Jaffe PA [facility] DR [place] [address] documented as of this encounter Visit Diagnoses Diagnosis Malignant neoplasm of prostate documented in this encounter Care Teams Carver Hand Relationship Specialty Start Date End Date Clara Wood MD [facility] [address] [place] [address] PCP - General Family Medicine 01/26/17 documented as of this encounter
--- OUTSIDE RECORDS SUMMARY | 2023-10-11 01:48 | XMS_ITS | Encounter Summary ---
Author Organization [facility] [place] [address] Care Team Providers Care Administrative Clerk Name Role Phone Clara Wood MD Primary Care Provider [phone] Encounter Details Date Type Department Care Team (Late st Contact Info) Description 08/11/2021 8:10 AM EDT Office Visit Radiation Oncology at [address] [phone] Michel Yip MD [address] [place] [address] [place] [address] Prostate cancer Social History Tobacco [...] 36.5 ??C (97.7 ??F) 08/11/2021 8:00 AM ED T Respiratory Rate 16 08/11/2021 8:00 AM EDT Oxygen Saturation 98% 08/11/2021 8:00 AM EDT Inhaled Oxygen Concentration - - Weight 88.8 kg (195 lb 12.8 oz) 08/11/2021 8:00 AM EDT Height - - Body Mass Index 28.91 04/23/2018 7:39 AM EST documented in this encounter Progress Notes * Michel Yip MD - 08/11/2021 8:10 AM EDT Images from the original note were not included. 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 Overall no changes. GI Diarrhea [...] LUTS) 2 ( Mild LUTS) MEDICATIONS Medications 08/11/21 0823 Medication Sig [...] TH Visit (TeleHealth) Radiation Oncology at [address] [phone] Zahira Jaffe V., [facility] DR HEMATOLOGY [place] [address] documented as of this encounter Visit Diagnoses Diagnosis Prostate cancer Malignant neoplasm of prostate documented in this encounter Care Teams Administrative Clerk Relationship Specialty Start Date End Date Clara Wood MD [address] [place] [address] PCP - General Family Medicine 01/26/17 documented as of this encounter
--- OUTSIDE RECORDS SUMMARY | 2023-10-11 01:48 | XMS_ITS | Encounter Summary ---
Author Organization [facility] [place] [address] Care Team Providers Care Typing Element Machine Operator Name Role Phone Clara Wood MD Primary Care Provider [phone] Encounter Details Date Type Department Care Team (Latest Contact Info) Description 01/19/2022 Travel Social History Tobacco Use Types Packs/Day [...] TH Visit (TeleHealth) Radiation Oncology at [address] [phone] Zahira Jaffe PA [facility] HEMATOLOGY [place] [address] documented as of this encounter Visit Diagnoses Not on filedocumented in this encounter Care Teams Typing Element Machine Operator Relationship Specialty Start Date End Date Clara Wood MD Ebony ROSEN [address] [place] [phone] PCP - General Family Medicine 01/26/17 documented as of this encounter
--- OUTSIDE RECORDS SUMMARY | 2023-10-11 01:48 | XMS_ITS | Encounter Summary ---
Author Organization [facility] [place] [address] Care Team Providers Care Child Care Coordinator Name Role Phone Clara Wood MD Primary Care Provider [phone] Encounter Details Date Type Department Care Team (Latest Contact Info) Description 12/10/2018 10:00 AM EDT Laboratory Appointment Lab [address] [place] [phone] Malignant neoplasm of prostate Social History Tobacco [...] EDT TH Visit (TeleHealth) Radiation Oncology at [address] [phone] Zahira Jaffe PA [facility] [place] [address] documented as of this encounter Procedures Procedure Name Priority Date/Time Associated Diagnosis Comments HC PROSTATE SPECIFIC ANTIGEN Routine 12/10/2018 9:37 AM EDT Malignant neoplasm of prostate documented in this encounter Results * PSA (12/10/2018 9:37 AM EDT) PSA Total (Ultrasensitiv e) 0.02 0.00 - 4.00 ng/mL [facility] Blood specimen (specimen) 12/10/2018 9:37 AM EDT 12/10/2018 9:55 AM EDT Narrative Resulting Agency Comment Spec In Lab Nabil Camargo MD CHEMISTRY ORDERABL ES [facility] [place] [phone] documented in this encounter Visit Diagnoses Diagnosis Malignant neoplasm of prostate documented in this encounter Care Teams Child Care Coordinator Relationship Specialty Start Date End Date Clara Wood MD [address] [place] [address] PCP - General Family Medicine 01/26/17 documented as of this encounter
--- OUTSIDE RECORDS SUMMARY | 2023-10-11 01:48 | XMS_ITS | Encounter Summary ---
Author Organization [facility] [place] [address] Care Team Providers Care National Service Officer Name Role Phone Clara Wood MD Primary Care Provider [phone] Encounter Details Date Type Department Care Team (Late st Contact Info) Description 08/18/2021 7:55 AM EDT Office Visit Radiation Oncology at [address] [phone] Michel Yip MD [address] [place] [address] [place] [address] Prostate cancer Social History Tobacco [...] 36.6 ??C (97.9 ??F) 08/18/2021 8:00 AM ED T Respiratory Rate - - Oxygen Saturation 98% 08/18/2021 8:00 AM EDT Inhaled Oxygen Concentration - - Weight 89.4 kg (197 lb 3.2 oz) 08/18/2021 8:00 A M EDT Height - - Body Mass Index 29.12 04/23/2018 7:39 AM EST documented in this encounter Progress Notes * Michel Yip MD - 08/18/2021 7:55 AM EDT Images from the original note were not included. 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 Overall no changes. Mild HF. [...] LUTS) 2 ( Mild LUTS) MEDICATIONS Medications 08/18/21 0808 Medication Sig [...] (197 lb 3.2 oz) SpO2 98% BMI 29.12kg/m?? Constitutional: he appears well-developed and well-nourished. No [...] 4 weeks for post treatment check and Jefryron (anticipate 09/29/21) Will check PSA / T prior documented in this encounter Plan of Treatment Upcoming Encounters Date Type Department Care Team (Late st Contact Info) Description 01/08/2024 1:45 PM EDT TH Visit (TeleHealth) Radiation Oncology at [address] [phone] Zahira Jaffe PA [facility] DR [place] [address] documented as of this encounter Visit Diagnoses Diagnosis Prostate cancer Malignant neoplasm of prostate documented in this encounter Care Teams National Service Officer Relationship Specialty Start Date End Date Clara Wood MD [facility] [address] [place] [address] PCP - General Family Medicine 01/26/17 documented as of this encounter
--- OUTSIDE RECORDS SUMMARY | 2023-10-11 01:48 | XMS_ITS | Encounter Summary ---
Author Organization [facility] [place] [address] Care Team Providers Care Cutter Down Name Role Phone Clara Wood MD Primary Care Provider [phone] Encounter Details Date Type Department Care Team (Latest Contact Info) Description 07/15/2022 Travel Social History Tobacco Use Types Packs/Day [...] TH Visit (TeleHealth) Radiation Oncology at [address] [phone] Zahira Jaffe PA [facility] [place] [address] documented as of this encounter Visit Diagnoses Not on filedocumented in this encounter Care Teams Cutter Down Relationship Specialty Start Date End Date Clara Wood MD Ebony ROSEN [address] [place] [phone] PCP - General Family Medicine 01/26/17 documented as of this encounter
--- OUTSIDE RECORDS SUMMARY | 2023-10-11 01:48 | XMS_ITS | Encounter Summary ---
Author Organization [facility] [place] [address] Care Team Providers Care Data Deliverables Manager Name Role Phone Clara Wood MD Primary Care Provider [phone] Reason for Referral * Consultation (Routine) - Closed Specialty Diagnoses / Procedures Referred By Lobo dean Referred To Contact Radiation Oncology Diagnoses Malignant neoplasm of prostate Nabil Camargo MD [facility] [place] [address] [facility] Rad Onc Office [address] [place] [phone] Referral ID Status Reason Start Date Expiration Date V isits Requested Visits Authorized [id number] Closed Consult, Test & Treat 06/08/2020 06/08/2021 1 1 Encounter Details Date Type Department Care Team (Late st Contact Info) Description 06/08/2020 10:00 AM EDT TH Visit (TeleHealth) [place] [address] Nabil Camargo MD [facility] [place] [address] Malignant neoplasm of prostate Social History Tobacco [...] Progress Notes * Nabil Camargo MD - 06/08/2020 10:00 AM [...] Gatherings with Friends and Family: ??? Attends Mu-Ism Services: ??? Active Member of Clubs or [...] Group 2, Margin limited (<3mm) anterior apex. [place] 3 at margin s/p L>R NS RALP [...] EDT TH Visit (TeleHealth) Radiation Oncology at [address] [phone] Zahira Jaffe PA [facility] DR HEMATOLOGY [place] [address] Scheduled Referrals Name Type Priority Associated Diagnoses Orde r Schedule Referral to Radiation Oncology Outpatient Referral Routine Malignant neoplasm of prostate Ordered: 06/08/2020 documented as of this encounter Visit Diagnoses Diagnosis Malignant neoplasm of prostate documented in this encounter Care Teams Data Deliverables Manager Relationship Specialty Start Date End Date Clara Wood MD [address] [facility] 1 [place] [address] PCP - General Family Medicine 01/26/17 documented as of this encounter
--- OUTSIDE RECORDS SUMMARY | 2023-10-11 01:48 | XMS_ITS | Encounter Summary ---
Author Organization [facility] [place] [address] Care Team Providers Care Vice President Integrated Name Role Phone Clara Wood MD Primary Care Provider [phone] Reason for Referral * Consultation (Routine) - Closed Specialty Diagnoses / Procedures Referred By Lobo dean Referred To Contact Radiation Oncology Diagnoses Prostate cancer Procedures Simulation for Radiation Therapy Planning Michel Yip MD [address] [place] [address] [place] [address] St Rad Onc Office [address] [place] [phone] Referral ID Status Reason Start Date Expiration Date V isits Requested Visits Authorized [id number] Closed Consult, Test & Treat 05/05/2021 05/05/2022 39 39 Encounter Details Date Type Department Care Team (Late st Contact Info) Description 05/05/2021 3:00 PM EST TH Visit (TeleHealth) Radiation Oncology at [address] [phone] Michel Yip MD [address] [place] [address] [place] [address] Prostate cancer Social History Tobacco [...] Progress Notes * Michel Yip MD - 05/05/2021 3:00 PM [...] given the focal residual Gl 3 that islikely responsible for his PSA. However given the [...] meantime does with to pursue scheduling for RT.He has a trip planned over the next [...] above documented in this encounter Miscellaneous Notes * Addendum Note - Michel Yip MD - 05/05/2021 3:00 PM ESTAddended by: MICHEL YIP on: 05/05/2021 03:53 PM Modules accepted: Orders documented in this encounter Plan of Treatment Upcoming Encounters Date Type Department Care Team (Late st Contact Info) Description 01/08/2024 1:45 PM EDT TH Visit (TeleHealth) Radiation Oncology at [address] [phone] Zahira Jaffe PA [facility] DR [place] [address] Scheduled Orders Name Type Priority Associated Diagnoses Orde r Schedule Simulation for Radiation Therapy Planning Procedures Routine Prostate cancer Ordered: 05/05/2021 documented as of this encounter Visit Diagnoses Diagnosis Prostate cancer Malignant neoplasm of prostate documented in this encounter Care Teams Vice President Integrated Relationship Specialty Start Date End Date Clara Wood MD [facility] [address] [place] [address] PCP - General Family Medicine 01/26/17 documented as of this encounter
--- OUTSIDE RECORDS SUMMARY | 2023-10-11 01:48 | XMS_ITS | Encounter Summary ---
Author Organization [facility] [place] [address] Care Team Providers Care Button Tacker Name Role Phone Clara Wood MD Primary Care Provider [phone] Encounter Details Date Type Department Care Team (Late st Contact Info) Description 07/20/2022 10:15 AM EDT Office Visit Radiation Oncology at [address] [phone] Clover Covarrubias APRN [facility] [place] [address] Prostate cancer (Primary Dx) Social History Tobacco Use Types [...] Sign Reading Time Taken Comments Blood Pressure 107/67 07/20/2022 10:08 AM EDT Pulse 64 07/20/2022 10:08 AM EDT Temperature 36.5 ??C (97.7 ??F) 07/20/2022 10:08 AM E DT Respiratory Rate 18 07/20/2022 10:08 AM EDT Oxygen Saturation 98% 07/20/2022 10:08 AM EDT Inhaled Oxygen Concentration - - Weight 93.9 kg (207 lb) 07/20/2022 10:08 AM EDT Height - - Body Mass Index 30.55 01/19/2022 1:40 PM EDT documented in this encounter Progress Notes * Clover Covarrubias, RECYCLABLE MATERIALS DISTRIBUTOR - 07/20/2022 10:15 AM EDT [facility] [place] [address] Phone: RADIATION ONCOLOGY FOLLOW UP NOTE Patient Amanuel Lomax 1955 PCP: Clara Wood MD Urologist: Radiation oncologist: Dr. Michel Yip Chief Complaint: follow up/labs for prostate cancer Time since completed RT:08/19/21 ADT:plan x 6 months Current treatment:Surveillance. ADT coverage to 6 months completed HPI: PATIENT IDENTIFICATION ?? Name Amanuel Lomax [...] to complete [address] Ypi has active therapy plan for Lupron monthly dose x 6 months coverage. INTENT OF THERAPY: Definitive (Curative) ?? RADIATION TREATMENT DETAILS: ?? Initial Treatment Site Pelvis and Prostate Bed Prescribed Dose 45 Gy in 25 fractions ? Boost Treatment Site 2 Prostate Bed Prescribed Dose 70.2 Gy in 39 fractions ? Completion Date 08/19/21 ? INTERVAL HISTORY ?? 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 Overall no changes. Mild HF. ?? [...] ( Mild LUTS) 2 ( Mild LUTS) ? MEDICATIONS ?? Medications 08/18/21 0808 [...] Testosterone 09/29/21 8.0 ng/dl (LLN 240) ?? 07/15/2022 ??1:08 PM EDT - Filed by Patient Urinary [...] 3 Q - Prostate Followup Survey Question 07/15/2022 ??1:12 PM EDT - Filed by Patient Reason [...] LUTS) Confidence, level - past 6 months Low Penetration - past 6 months No sexual activity Penetration, maintain - past 6 months Did not attempt intercourse Erection, maintain - past 6 months Did not attempt intercourse Sexual satisfaction - past 6 months Did not attempt intercourse Sexual Health in Men (range: 1 - 21) 2 (Severe ED) Interim HPI: There have been no changes in health in the interval period. Past Medical History: Diagnosis Date ??? GERD (gastroesophageal reflux disease) ??? HTN (hypertension) ??? Prostate cancer 12/07/2017 Past Surgical History: Procedure Laterality Date ??? PRO COLONOSCOPY, DIAGNOSTIC 12/04/2012 COLONOSCOPY, DIAGNOSTIC performed by Real Jones MD at [facility] ENDOSCOPY ??? PRO LAP, PELVIC LYMPHADENECTOMY Bilateral 12/07/2017 LAPAROSCOPY,WITH BILATERAL TOTAL PELVIC LYMPHADENECTOMY, ROBOTIC (WRVU 12) performed by Nabil Camargo MD at [facility] MAIN OR ??? PRO LAP, PROSTATECTOMY, RADICAL, W/NERVE SPARE N/A 12/07/2017 LAPAROSCOPIC PROSTATECTOMY, ROBOTICS ASSISTED (WRVU 21.36) performed by Nabil Camargo MD at [facility] MAIN OR ??? PRO LAPARSCOPY REPAIR PARAESOPHAGEAL HERNIA INCL FUNDOPLASTY W/O MESH N/A 02/28/2017 ROBOT XI LAPAROSCOPIC PARAESOPHAGEAL HERNIA REPAIR W/FUNDOPLASTY,W/O MESH (WRVU 26.6) performed by Al Ortiz MD at [facility] MAIN OR ??? PRO UPPER GI ENDOSCOPY, BIOPSY 12/04/2012 UPPER GASTROINTESTINAL ENDOSCOPY,WITH BIOPSY SINGLE OR MULTIPLE performed by Real Jones MD at [facility] ENDOSCOPY ??? PRO UPPER GI ENDOSCOPY, BIOPSY N/A 11/29/2016 UPPER GASTROINTESTINAL ENDOSCOPY,WITH BIOPSY SINGLE OR MULTIPLE (WRVU 2.49) performed by Kaiser Doyle MD at [facility] ENDOSCOPY ??? PRO UPPER GI ENDOSCOPY, BIOPSY N/A 04/23/2018 UPPER GASTROINTESTINAL ENDOSCOPY,WITH BIOPSY SINGLE OR MULTIPLE (WRVU 2.49) performed by Kaiser Doyle MD at [facility] ENDOSCOPY ??? PRO UPPER GI ENDOSCOPY, DIAGNOSTIC N/A 02/28/2017 EGD, UPPER GI ENDOSCOPY performed by Al Ortiz MD at [facility] MAIN OR ??? PRO UPPER GI ENDOSCOPY, DIAGNOSTIC N/A 04/23/2018 EGD, UPPER GI ENDOSCOPY performed by Kaiser Doyle MD at [facility] ENDOSCOPY No family history on file. Social History Tobacco Use ??? Smoking status: Former Packs/day: 1.50 Years: 20.00 Pack years: 30.00 Types: Cigarettes Quit date: 1982 Years since quittin.3 ??? Smokeless tobacco: Never Vaping Use ??? Vaping Use: Never used Substance Use Topics ??? Alcohol use: Yes Comment: rarely ??? Drug use: No Review of Symptoms: I reviewed the IPSS/KATHERYN/Epic-Cp survey results from today As above. Patient concerns for today's visit: General: Patient states that he has been doing very well. Really had minimal issues through the lupron tx which has been completed back in October for a ST course. Fatigue: No fatigue to speak of. Weight/appetite/diet no significant changes Respiratory: Denies respiratory illness. GI: No GI symptoms, no bowel irregularity. No blood in stool : Minimal to 0 LUTS, no hematuria, urination up 1-2 x at noc. Endocrine: Denies any symptoms from Lupron therapy. Sexual health: test level returned to normal. Test returned to normal, Dr Camargo had rx viagra butnever tried. Not interested in discussing further today. 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 BP 107/67 (Patient Position: Sitting) Pulse 64 Temp 36.5 ??C (97.7 ??F) (Temporal) Resp 18 Wt 93.9 kg (207 lb) Constitutional: seen in clinic, no distress HENT: normocephalic, anicteric Cardiovascular: Rate and Rhythm: Normal rate and regular rhythm. VSS. Pulmonary: Effort: Pulmonary effort is normal. No cough, congestion or wheezing, no hx covid Genitourinary: Rectum: Deferred at this time, PSA [...] Reviewed this visit: Date PSA Test Notes 12/30/21 0.01 89 09/29/21 <0.01 8.0 Assessment: 67 y.o. presenting for follow up/ lab for prostate cancer. October 2021 visit was his final Lupron 7.5 mg to complete a 6-month course. Had no sx r/t the lupron administration. Currently no sx of concern, no hematuria, difficulty with urination, no bowel issues, no bone pain. He has not questions, concerns or even sx. He has done very well through the course of his tx at this time. Medical Decision Making/Recommendations/Plan: # prostate cancer: reviewed [...] in your urine or stool # ADT: received final dose Lupron in October compl 6 months coverage. # survivorship/lifestyle/wellness: No concerns at this time # resources provided: # referrals done: # follow up: Per NCCN guidelines, PSA and history/physical every 6-12 months X 5 years, then annually. Annual AMI (unless PSA undetectable or prostatectomy). PSA may be checked more frequently depending on risk level or other patient specific factors. Next visit:6 months Labs: PSA, testosterone Amanuel Lomax had the opportunity to ask questions and I answered them to the best of my knowledge. Amanuel Lomax agreed to contact radiation oncology in between visits if he has any questions/concerns or new symptoms in regards to the radiation therapy/prostate cancer Clover Covarrubias MSN, RECYCLABLE MATERIALS DISTRIBUTOR, CAFETERIA OR LUNCHROOM CHECKER-C Nurse Practitioner Radiation Oncology documented in this encounter Plan of Treatment Upcoming Encounters Date Type Department Care Team (Late st Contact Info) Description 01/08/2024 1:45 PM EDT TH Visit (TeleHealth) Radiation Oncology at [address] [phone] Zahira Jaffe PA [facility] DR HEMATOLOGY [place] [address] documented as of this encounter Visit Diagnoses Diagnosis Prostate cancer- Primary Malignant neoplasm of prostate documented in this encounter Care Teams Button Tacker Relationship Specialty Start Date End Date Clara Wood MD [facility] [address] [place] [address] PCP - General Family Medicine 01/26/17 documented as of this encounter
--- OUTSIDE RECORDS SUMMARY | 2023-10-11 01:48 | XMS_ITS | Encounter Summary ---
Author Organization [facility] [place] [address] Care Team Providers Care Yacht Master Name Role Phone Clara Wood MD Primary Care Provider [phone] Encounter Details Date Type Department Care Team (Late st Contact Info) Description 11/03/2021 1:45 PM EDT Office Visit Radiation Oncology at [address] [phone] [facility] [place] [address] Prostate cancer Social History Tobacco Use Types [...] 36.9 ??C (98.4 ??F) 11/03/2021 1:47 PM ED T Respiratory Rate 18 11/03/2021 1:47 PM EDT Oxygen Saturation 99% 11/03/2021 1:47 PM EDT Inhaled Oxygen Concentration - - Weight 90.2 kg (198 lb 12.8 oz) 11/03/2021 1:47 PM EDT Height 175.3 cm (5' 9) 11/03/2021 1:47 PM EDT Body Mass Index 29.36 11/03/2021 1:47 PM EDT documented in this encounter Progress Notes * Clover Covarrubias, ADMISSIONS SUPERVISOR - 11/03/2021 1:45 PM EDTSummary: 66 yo M dx High-Risk Prostate Cancer s/p RALP 11/2017 //Rising PSA postop most recently 0.08 (04/2021). [facility] [place] RADIATION [place] [address] Phone: RADIATION ONCOLOGY FOLLOW UP NOTE Patient [...] ? INTERVAL HISTORY ?? 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 Overall no changes. Mild HF. ?? [...] prostate cancer. Today is his final Lupron 7.5mg to complete a 6-month course. He has a f/u visit booked for December with me and labs were sent to him. He has not questions, concerns or even sx. He has done very well through the course of his txat this time. There was a delay in getting [...] the radiation therapy/prostate cancer Clover Covarrubias MSN, ADMISSIONS SUPERVISOR, LEAD SHIPPER-C Nurse Practitioner Radiation Oncology documented in this encounter Plan of Treatment Upcoming Encounters Date Type Department Care Team (Late st Contact Info) Description 01/08/2024 1:45 PM EDT TH Visit (TeleHealth) Radiation Oncology at [address] [phone] [facility] [place] [address] documented as of this encounter Visit Diagnoses Diagnosis Prostate cancer Malignant neoplasm of prostate documented in this encounter Care Teams Yacht Master Relationship Specialty Start Date End Date Clara Wood MD [address] [place] [address] PCP - General Family Medicine 01/26/17 documented as of this encounter
--- OUTSIDE RECORDS SUMMARY | 2023-10-11 01:48 | XMS_ITS | Encounter Summary ---
Author Organization [facility] [place] [address] Care Team Providers Care Fireworks Assembly Supervisor Name Role Phone Clara Wood MD Primary Care Provider Reason for Visit * Reason Comments Injections Lupron * Treatment/Therapy Plan Authorization (Routine) - Authorized Specialty Diagnoses / Procedures Referred By Lobo dean Referred To Contact Hematology and Oncology Diagnoses Prostate cancer Procedures TC LEUPROLIDE ACETATE 7.5MG, FOR DEPOST SUSPENSION (LUPRON DEPOT) [id number] Lupron Depot Michel Yip MD [address] [place] [address] [place] [address] [facility] Hem Onc Infusion [address] [place] [phone] Referral ID Status Reason Start Date Expiration Date V isits Requested Visits Authorized [id number] Authorized 05/05/2021 09/15/2022 99 99 Encounter Details Date Type Department Care Team (Late st Contact Info) Description 11/03/2021 2:30 PM EDT Infusion Hematology Oncology at [address] [phone] Prostate cancer Social History Tobacco [...] as of this encounter Progress Notes * Monica Art RN - 11/03/2021 2:30 PM [...] TH Visit (TeleHealth) Radiation Oncology at [address] [phone] [facility] DR [place] [address] documented as of this encounter Visit Diagnoses [...] being given as an outpatient? Yes Given 11/03/2021 2:33 PM EDT 7.5 mg Le ft Gluteal documented in this encounter Care Teams Fireworks Assembly Supervisor Relationship Specialty Start Date End Date Clara Wood MD [facility] [address] [place] [address] PCP - General Family Medicine 01/26/17 documented as of this encounter
--- OUTSIDE RECORDS SUMMARY | 2023-10-11 01:48 | XMS_ITS | Encounter Summary ---
Author Organization [facility] [place] [address] Care Team Providers Care Chief Resource Officer Name Role Phone Clara Wood MD Primary Care Provider [phone] Reason for Visit * Reason Comments Injections Lupron * Treatment/Therapy Plan Authorization (Routine) - Authorized Specialty Diagnoses / Procedures Referred By Lobo dean Referred To Contact Hematology and Oncology Diagnoses Prostate cancer Procedures TC LEUPROLIDE ACETATE 7.5MG, FOR DEPOST SUSPENSION (LUPRON DEPOT) [id number] Lupron Depot Michel Yip MD [address] [place] [address] [place] [address] [facility] Hem Onc Infusion [address] [place] [phone] Referral ID Status Reason Start Date Expiration Date V isits Requested Visits Authorized [id number] Authorized 05/05/2021 09/15/2022 99 99 Encounter Details Date Type Department Care Team (Late st Contact Info) Description 10/06/2021 2:30 PM EDT Infusion Hematology Oncology at [address] [phone] Prostate cancer Social History Tobacco [...] as of this encounter Progress Notes * Claudette Matos RN - 10/06/2021 2:30 PM [...] EDT TH Visit (TeleHealth) Radiation Oncology at [address] [phone] Zahira Jaffe PA [facility] DR HEMATOLOGY [place] [address] documented as of this encounter Visit Diagnoses [...] being given as an outpatient? Yes Given 10/06/2021 2:33 PM EDT 7.5 mg Ri ght Gluteal documented in this encounter Care Teams Chief Resource Officer Relationship Specialty Start Date End Date Clara Wood MD [address] [place] [address] PCP - General Family Medicine 01/26/17 documented as of this encounter
--- OUTSIDE RECORDS SUMMARY | 2023-10-11 01:48 | XMS_ITS | Encounter Summary ---
Author Organization [facility] [place] [address] Care Team Providers Care Asbestos Removal Supervisor Name Role Phone Clara Wood MD Primary Care Provider [phone] Encounter Details Date Type Department Care Team (Late st Contact Info) Description 10/06/2021 2:00 PM EDT Office Visit Radiation Oncology at [address] [phone] Michel Yip MD [address] [place] [address] [place] [address] Prostate cancer Social History Tobacco [...] 36.6 ??C (97.9 ??F) 10/06/2021 2:00 PM ED T Respiratory Rate 16 10/06/2021 2:00 PM EDT Oxygen Saturation 98% 10/06/2021 2:00 PM EDT Inhaled Oxygen Concentration - - Weight 90 kg (198 lb 6.4 oz) 10/06/2021 2:00 PM EDT Height - - Body Mass Index 29.3 04/23/2018 7:39 AM EST documented in this encounter Progress Notes * Michel Yip MD - 10/06/2021 2:00 PM EDT Images from the original note were not included. 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 Overall no changes. Mild HF. [...] TH Visit (TeleHealth) Radiation Oncology at [address] [phone] Zahira Jaffe PA [facility] [place] [address] documented as of this encounter Visit Diagnoses Diagnosis Prostate cancer Malignant neoplasm of prostate documented in this encounter Care Teams Asbestos Removal Supervisor Relationship Specialty Start Date End Date Clara Wood MD [facility] [address] [place] [address] PCP - General Family Medicine 01/26/17 documented as of this encounter
--- OUTSIDE RECORDS SUMMARY | 2023-10-11 01:48 | XMS_ITS | Encounter Summary ---
Author Organization [facility] [place] [address] Care Team Providers Care Brake Press Operator Name Role Phone Clara Wood MD Primary Care Provider [phone] Encounter Details Date Type Department Care Team (Late st Contact Info) Description 12/10/2018 11:00 AM EDT Office [place] [address] Nabil Camargo MD [facility] [place] [address] Malignant neoplasm of prostate Social History Tobacco [...] Progress Notes * Nabil Camargo MD - 12/10/2018 11:00 AM EDT Urologic [...] 2, Margin + limited (<3mm) anterior apex. [place] 3 at margin. Overall, he is doing [...] file Gets together: Not on file Attends mormonism service: Not on file Active member of [...] TH Visit (TeleHealth) Radiation Oncology at [address] [phone] Zahira Jaffe PA [facility] DR HEMATOLOGY [place] [address] documented as of this encounter Results * PSA (Ultrasensitive) (09/08/2019 2:07 PM EDT) PSA Total (Ultrasensitiv e) 0.03 0.00 - 4.00 ng/mL [facility] Blood specimen (specimen) 09/08/2019 2:07 PM EDT 09/08/2019 2:17 PM EDT Narrative Resulting Agency Comment Spec In Lab Nabil Camargo MD CHEMISTRY ORDERABL ES [facility] [place] [address] documented in this encounter Visit Diagnoses Diagnosis Malignant neoplasm of prostate documented in this encounter Care Teams Brake Press Operator Relationship Specialty Start Date End Date Clara Wood MD [facility] [address] [facility] [address] [place] [address] PCP - General Family Medicine 01/26/17 documented as of this encounter
--- OUTSIDE RECORDS SUMMARY | 2023-10-11 01:48 | XMS_ITS | Encounter Summary ---
Author Organization [facility] [place] [address] Care Team Providers Care Program Consultant Name Role Phone Clara Wood MD Primary Care Provider [phone] Encounter Details Date Type Department Care Team (Late st Contact Info) Description 07/02/2020 9:30 AM EDT Telephone Radiation Oncology at [address] [phone] Rad Nurse, [facility] Social History Tobacco Use Types Packs/Day Years [...] EDT TH Visit (TeleHealth) Radiation Oncology at [address] [phone] Zahira Jaffe PA [facility] DR HEMATOLOGY [place] [address] documented as of this encounter Visit Diagnoses Diagnosis DH ERRONEOUS ENCOUNTER documented in this encounter Care Teams Program Consultant Relationship Specialty Start Date End Date Clara Wood MD [facility] [address] [place] [address] PCP - General Family Medicine 01/26/17 documented as of this encounter
--- OUTSIDE RECORDS SUMMARY | 2023-10-11 01:48 | XMS_ITS | Encounter Summary ---
Author Organization [facility] [place] [address] Care Team Providers Care Auth Specialist Name Role Phone Clara Wood MD Primary Care Provider [phone] Encounter Details Date Type Department Care Team (Latest Contact Info) Description 07/20/2022 Travel Social History Tobacco Use Types Packs/Day [...] EDT TH Visit (TeleHealth) Radiation Oncology at [address] [phone] Zahira Jaffe PA [facility] HEMATOLOGY [place] [address] documented as of this encounter Visit Diagnoses Not on filedocumented in this encounter Care Teams Auth Specialist Relationship Specialty Start Date End Date Clara Wood MD [address] [place] [phone] PCP - General Family Medicine 01/26/17 documented as of this encounter
--- OUTSIDE RECORDS SUMMARY | 2023-10-11 01:48 | XMS_ITS | Encounter Summary ---
Author Organization [facility] [place] [address] Care Team Providers Care Enamel Finisher Name Role Phone Clara Wood MD Primary Care Provider [phone] Encounter Details Date Type Department Care Team (Late st Contact Info) Description 06/11/2020 Telephone Radiation Oncology at [address] [phone] Davin Medina Social History Tobacco Use Types Packs/Day Years [...] encounter Miscellaneous Notes * Telephone Encounter - Davin Medina - 06/11/2020 3:37 PM EDT Radiation Oncology New Patient Scheduling Note I called Amanuel to inform him that Dr. Camargo has referred him to see Dr. Yip for a radiationnew patient consultation. I have confirmed his appointments [...] TH Visit (TeleHealth) Radiation Oncology at [address] [phone] Zahira Jaffe PA [facility] [place] [address] documented as of this encounter Visit Diagnoses Not on filedocumented in this encounter Care Teams Enamel Finisher Relationship Specialty Start Date End Date Clara Wood MD [facility] [address] [place] [address] PCP - General Family Medicine 01/26/17 documented as of this encounter
--- OUTSIDE RECORDS SUMMARY | 2023-10-11 01:48 | XMS_ITS | Encounter Summary ---
Author Organization [facility] [place] [address] Care Team Providers Care Head Doffer Name Role Phone Clara Wood MD Primary Care Provider [phone] Encounter Details Date Type Department Care Team (Late st Contact Info) Description 10/21/2020 2:30 PM EDT TH Visit (TeleHealth) Radiation Oncology at [address] [phone] Michel Yip MD [address] [place] [address] [place] [address] Prostate cancer Social History Tobacco [...] Progress Notes * Michel Yip MD - 10/21/2020 2:30 PM [...] EDT TH Visit (TeleHealth) Radiation Oncology at [address] [phone] Zahira Jaffe PA [facility] DR [place] [address] documented as of this encounter Visit Diagnoses Diagnosis Prostate cancer Malignant neoplasm of prostate documented in this encounter Care Teams Head Doffer Relationship Specialty Start Date End Date Clara Wood MD [facility] [address] [place] [address] PCP - General Family Medicine 01/26/17 documented as of this encounter
--- OUTSIDE RECORDS SUMMARY | 2023-10-11 01:48 | XMS_ITS | Encounter Summary ---
Author Organization [facility] [place] [address] Care Team Providers Care Nurse Navigator Name Role Phone Clara Wood MD Primary Care Provider [phone] Encounter Details Date Type Department Care Team (Late st Contact Info) Description 07/01/2021 10:25 AM EDT Office Visit Radiation Oncology at [address] [phone] Gerardo Ervin MD [facility] [place] [address] Prostate cancer Social History Tobacco Use Types Packs/Day Years Used Date Smoking Tobacco: Former Cigarettes 1.5 20 1 96 - 1981 Smokeless Tobacco: Never Alcohol Use [...] EDT Temperature 36.5 ??C (97.7 ??F) 07/01/2021 1 0:00 AM EDT Respiratory Rate 16 07/01/2021 10:0 0 AM EDT Oxygen Saturation 96% 07/01/2021 10: 00 AM EDT Inhaled Oxygen Concentration - - Weight 90.6 kg (199 lb 12.8 oz) 022 10:00 AM EDT Height - - Body Mass Index 29.51 04/23/2018 7:39 AM EST documented in this encounter Progress Notes * Gerardo Ervin MD - 07/01/2021 10:25 AM EDT Images from the original note were not included. RADIATION ONCOLOGY - Weekly On Treatment Visit Note 07/01/21 GEARRDO ERVIN MD Radiation Oncology [facility] [phone] (paging multiple effect evaporator operator) Pager #[phone] PATIENT IDENTIFICATION Name Amanuel Lomax Date of [...] since last seen. Started today. 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 GI No diarrhea. Nocturia 2 x/nt [...] LUTS) 2 ( Mild LUTS) MEDICATIONS Medications 07/01/21 1040 Medication Sig [...] TH Visit (TeleHealth) Radiation Oncology at [address] [phone] Zahira Jaffe PA [facility] HEMATOLOGY AND [place] [address] documented as of this encounter Visit Diagnoses Diagnosis Prostate cancer Malignant neoplasm of prostate documented in this encounter Care Teams Nurse Navigator Relationship Specialty Start Date End Date Nina, Clara C, MD [address] [place] [address] PCP - General Family Medicine 01/26/17 documented as of this encounter
--- OUTSIDE RECORDS SUMMARY | 2023-10-11 01:48 | XMS_ITS | Encounter Summary ---
Author Organization [facility] [place] [address] Care Team Providers Care Wrapper Caser Name Role Phone Clara Wood MD Primary Care Provider [phone] Encounter Details Date Type Department Care Team (Late st Contact Info) Description 09/02/2020 12:00 PM EDT TH Visit (TeleHealth) Radiation Oncology at [address] [phone] Michel Yip MD [address] [place] [address] [place] [address] Prostate cancer Social History Tobacco [...] Progress Notes * Michel Yip MD - 09/02/2020 12:00 PM [...] EDT TH Visit (TeleHealth) Radiation Oncology at [address] [phone] Zahira Jaffe PA [facility] [place] [address] documented as of this encounter Visit Diagnoses Diagnosis Prostate cancer Malignant neoplasm of prostate documented in this encounter Care Teams Wrapper Caser Relationship Specialty Start Date End Date Clara Wood MD [facility] [address] [place] [address] PCP - General Family Medicine 01/26/17 documented as of this encounter
--- OUTSIDE RECORDS SUMMARY | 2023-10-11 01:48 | XMS_ITS | Encounter Summary ---
Author Organization [facility] [place] [address] Care Team Providers Care Extension Educator Name Role Phone Clara Wood MD Primary Care Provider [phone] Encounter Details Date Type Department Care Team (Late st Contact Info) Description 01/19/2022 1:45 PM EDT Office Visit Radiation Oncology at [address] [phone] Clover Covarrubias APRN [facility] [place] [address] Prostate cancer (Primary Dx) Social History Tobacco [...] Sign Reading Time Taken Comments Blood Pressure 124/80 01/19/2022 1:40 PM EDT Pulse 71 01/19/2022 1:40 PM EDT Temperature 36.4 ??C (97.5 ??F) 01/19/2022 1:40 PM ED T Respiratory Rate 18 01/19/2022 1:40 PM EDT Oxygen Saturation 98% 01/19/2022 1:40 PM EDT Inhaled Oxygen Concentration - - Weight 92.7 kg (204 lb 6.4 oz) 01/19/2022 1:40 P M EDT Height 175.3 cm (5' 9.02) 01/19/2022 1:40 PM ED T Body Mass Index 30.17 01/19/2022 1:40 PM EDT documented in this encounter Progress Notes * Clover Covarrubias, LITERACY TUTOR - 01/19/2022 1:45 PM EDTSummary: 66 yo M dx High-Risk Prostate Cancer s/p RALP 11/2017 //Rising PSA postop most recently 0.08 (04/2021). Comp 6 mos ADT 11/03/21 [facility] [place] [address] Phone: RADIATION ONCOLOGY FOLLOW UP NOTE Patient [...] ? INTERVAL HISTORY ?? 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 Overall no changes. Mild HF. ?? [...] 8.0 ng/dl (LLN 240) ?? Interim HPI: There have been no changes in health in the interval period. Past Medical History: Diagnosis Date ??? GERD (gastroesophageal reflux disease) ??? HTN (hypertension) ??? Prostate cancer 12/07/2017 Past Surgical History: Procedure Laterality Date ??? PRO COLONOSCOPY, DIAGNOSTIC 12/04/2012 COLONOSCOPY, DIAGNOSTIC performed by Real Jones MD at [facility] ENDOSCOPY ??? PRO LAP, PELVIC LYMPHADENECTOMY Bilateral 12/07/2017 LAPAROSCOPY,WITH BILATERAL TOTAL PELVIC LYMPHADENECTOMY, ROBOTIC (WRVU 12) performed by Nabil Camargo MD at [facility] OR ??? PRO LAP, PROSTATECTOMY, RADICAL, W/NERVE SPARE N/A 12/07/2017 LAPAROSCOPIC PROSTATECTOMY, ROBOTICS ASSISTED (WRVU 21.36) performed by Nabil Camargo MD at [facility] OR ??? PRO LAPARSCOPY REPAIR PARAESOPHAGEAL HERNIA INCL FUNDOPLASTY W/O MESH N/A 02/28/2017 ROBOT XI LAPAROSCOPIC PARAESOPHAGEAL HERNIA REPAIR W/FUNDOPLASTY,W/O MESH (WRVU 26.6) performed by Al Ortiz MD at [facility] OR ??? PRO UPPER GI ENDOSCOPY, BIOPSY 12/04/2012 UPPER GASTROINTESTINAL ENDOSCOPY,WITH BIOPSY SINGLE OR MULTIPLE performed by Real Jones MD at [facility] ENDOSCOPY ??? PRO UPPER GI ENDOSCOPY, BIOPSY N/A 11/29/2016 UPPER GASTROINTESTINAL ENDOSCOPY,WITH BIOPSY SINGLE OR MULTIPLE (WRVU 2.49) performed by Kaiser Doyle MD at [facility] ENDOSCOPY ??? PRO UPPER GI ENDOSCOPY, BIOPSY N/A 04/23/2018 UPPER GASTROINTESTINAL ENDOSCOPY,WITH BIOPSY SINGLE OR MULTIPLE (WRVU 2.49) performed by Kaiser Doyle MD at [facility] ENDOSCOPY ??? PRO UPPER GI ENDOSCOPY, DIAGNOSTIC N/A 02/28/2017 EGD, UPPER GI ENDOSCOPY performed by Al Ortiz MD at [facility] OR ??? PRO UPPER GI ENDOSCOPY, DIAGNOSTIC N/A 04/23/2018 EGD, UPPER GI ENDOSCOPY performed by Kaiser Doyle MD at [facility] ENDOSCOPY No family history on file. Social History Tobacco Use ??? Smoking status: Former Smoker Packs/day: 1.50 Years: 20.00 Pack years: 30.00 Types: Cigarettes Quit date: 1981 Years since quittin.8 ??? Smokeless tobacco: Never Used Vaping Use ??? Vaping Use: Never used Substance Use Topics ??? Alcohol use: Yes Comment: rarely ??? Drug use: No Review of Symptoms: I reviewed the IPSS/KATHERYN/Epic-Cp survey results from today 01/19/2022 ??1:32 PM EDT - Filed by Patient Urinary function problem No Problem Urinary control Occasional dribbling # of pads [...] poor to none Quality of your erections Not firm enough for any sexual activity Problem with sexual function or lack of [...] 3 Q - Prostate Followup Survey Question 01/19/2022 ??1:35 PM EDT - Filed by Patient Reason [...] Health in Men (range: 1 - 21) 1 (Severe ED) Patient concerns for today's visit: [...] hematuria Endocrine: Denies any symptoms from Lupron therapy. 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 BP 124/80 (Patient Position: Sitting) Pulse 71 Temp 36.4 ??C (97.5 ??F) (Temporal) Resp 18 Ht 175.3 cm (5' 9.02) Wt 92.7 kg (204 lb 6.4 oz) Constitutional: seen in clinic, no distress [...] 12/30/21 0.01 89 09/29/21 <0.01 8.0 Assessment: 66 y.o. presenting for follow up/ lab for prostate cancer. Last visit was his final Lupron 7.5 mg to complete a 6-month course in October. Had no sx r/t the lupron administration. He has not questions, concerns or even [...] the radiation therapy/prostate cancer Clover Covarrubias MSN, LITERACY TUTOR, METAL EXTRUSION SUPERVISOR-C Nurse Practitioner Radiation Oncology documented in this encounter Plan of Treatment Upcoming Encounters Date Type Department Care Team (Late st Contact Info) Description 01/08/2024 1:45 PM EDT TH Visit (TeleHealth) Radiation Oncology at [address] [phone] Zahira Jaffe PA [facility] DR [place] [address] documented as of this encounter Visit Diagnoses Diagnosis Prostate cancer- Primary Malignant neoplasm of prostate documented in this encounter Care Teams Extension Educator Relationship Specialty Start Date End Date Clara Wood MD [facility] [address] [place] [address] PCP - General Family Medicine 01/26/17 documented as of this encounter
--- OUTSIDE RECORDS SUMMARY | 2023-10-11 01:48 | XMS_ITS | Encounter Summary ---
Author Organization [facility] [place] [address] Care Team Providers Care Workforce Development Specialist Name Role Phone Clara Wood MD Primary Care Provider [phone] Encounter Details Date Type Department Care Team (Late st Contact Info) Description 07/23/2020 1:00 PM EDT TH Visit (TeleHealth) Radiation Oncology at [address] [phone] Michel Yip MD [address] [place] [address] [place] [address] Prostate cancer Social History Tobacco [...] Progress Notes * Michel Yip MD - 07/23/2020 1:00 PM [...] EDT TH Visit (TeleHealth) Radiation Oncology at [address] [phone] Zahira Jaffe PA [facility] [address] [place] [address] documented as of this encounter Visit Diagnoses Diagnosis Prostate cancer Malignant neoplasm of prostate documented in this encounter Care Teams Workforce Development Specialist Relationship Specialty Start Date End Date Clara Wood MD [facility] [address] [place] [address] PCP - General Family Medicine 01/26/17 documented as of this encounter
--- OUTSIDE RECORDS SUMMARY | 2023-10-11 01:48 | XMS_ITS | Encounter Summary ---
Author Organization [facility] [place] [address] Care Team Providers Care Inspector And Sorter Name Role Phone Clara Wood MD Primary Care Provider [phone] Encounter Details Date Type Department Care Team (Latest Contact Info) Description 09/24/2018 9:00 AM EDT Laboratory Appointment Lab [address] [place] [phone] Malignant neoplasm of prostate Social History Tobacco [...] EDT TH Visit (TeleHealth) Radiation Oncology at [address] [phone] Zahira Jaffe PA [facility] [place] [address] documented as of this encounter Procedures Procedure Name Priority Date/Time Associated Diagnosis Comments PSA (ULTRASENSITIVE) STAT 09/24/2018 8:39 AM EDT Malignant neoplasm of prostate documented in this encounter Results * PSA (09/24/2018 8:39 AM EDT) PSA Total (Ultrasensitiv e) 0.02 0.00 - 4.00 ng/mL [facility] Blood specimen (specimen) 09/24/2018 8:39 AM EDT 09/24/2018 8:43 AM EDT Narrative Resulting Agency Comment Spec In Lab Nabil Camargo MD CHEMISTRY ORDERABL ES [facility] [place] [id number] documented in this encounter Visit Diagnoses Diagnosis Malignant neoplasm of prostate documented in this encounter Care Teams Inspector And Sorter Relationship Specialty Start Date End Date Clara Wood MD [facility] [address] [place] [address] PCP - General Family Medicine 01/26/17 documented as of this encounter
--- OUTSIDE RECORDS SUMMARY | 2023-10-11 01:48 | XMS_ITS | Encounter Summary ---
Author Organization [facility] [place] [address] Care Team Providers Care Best Second Jobs Name Role Phone Clara Wood MD Primary Care Provider Encounter Details Date Type Department Care Team (Late st Contact Info) Description 07/07/2020 Telephone Urology at [place] [address] Nabil Camargo MD [facility] [place] [place] [address] Social History Tobacco Use Types Packs/Day Years [...] encounter Miscellaneous Notes * Telephone Encounter - Alirio Cardoza - 07/07/2020 10:25 AM EDT Patient calling, he would like to speak with Dr. Camargo regarding the referral that was sent to Rad Onc. He just has a couple questions. PHONE: [phone] documented in this encounter Plan of Treatment Upcoming Encounters Date Type Department Care Team (Late st Contact Info) Description 01/08/2024 1:45 PM EDT TH Visit (TeleHealth) Radiation Oncology at [address] [phone] Zahira Jaffe V., PA [facility] [place] [address] documented as of this encounter Visit Diagnoses Not on filedocumented in this encounter Care Teams Best Second Jobs Relationship Specialty Start Date End Date Clara Wood MD [address] [place] [address] PCP - General Family Medicine 01/26/17 documented as of this encounter
--- OUTSIDE RECORDS SUMMARY | 2023-10-11 01:49 | XMS_ITS | Encounter Summary ---
Author Organization [facility] [place] [address] Care Team Providers Care Photo Finish Photographer Name Role Phone Clara Wood MD Primary Care Provider [phone] Encounter Details Date Type Department Care Team (Late st Contact Info) Description 10/19/2017 Telephone Urology at [facility] [place] [address] Nabil Camargo MD [facility] [place] [place] [address] Social History Tobacco Use Types Packs/Day Years [...] encounter Miscellaneous Notes * Telephone Encounter - Estelle Palmer - 10/19/2017 8:28 AM EDT LM to schedule voiding trial and FUV with Dr. Camargo 7-10 days post-op surgery (12/07) documented in this encounter Plan of Treatment Upcoming Encounters Date Type Department Care Team (Late st Contact Info) Description 01/08/2024 1:45 PM EDT TH Visit (TeleHealth) Radiation Oncology at [address] [phone] Zahira Jaffe PA [facility] [address] [place] [address] documented as of this encounter Visit Diagnoses Not on filedocumented in this encounter Care Teams Photo Finish Photographer Relationship Specialty Start Date End Date Clara Wood MD [facility] [address] [place] [address] PCP - General Family Medicine 01/26/17 documented as of this encounter
--- OUTSIDE RECORDS SUMMARY | 2023-10-11 01:49 | XMS_ITS | Encounter Summary ---
Author Organization [facility] [place] [address] Care Team Providers Care Tape Recorder Repairer Name Role Phone Clara Wood MD Primary Care Provider [phone] Encounter Details Date Type Department Care Team (Latest Contact Info) Description 10/18/2017 10:35 AM EDT Laboratory [place] [address] Prostate cancer Social History Tobacco Use Types [...] EDT TH Visit (TeleHealth) Radiation Oncology at [address] [phone] Zahira Jaffe PA [facility] DR [place] [address] documented as of this encounter Procedures Procedure Name Priority Date/Time Associated Diagnosis Comments HEMOGRAM Routine 10/18/2017 11:46 AM EDT Prostate cancer DIFFERENTIAL, AUTOMATED Routine 10/18/2017 11:46 AM EDT Prostate cancer CBC (WITH DIFF) Routine 10/18/2017 11:46 AM EDT Prostate cancer COMPREHENSIVE METABOLIC PANEL (NON-FASTING) Routine 10/18/2017 11:46 AM EDT Prostate cancer documented in this encounter Results * Differential, Automated (10/18/2017 11:46 AM EDT) Neutrophils % 56.8 % [facility] Neutr Abs (ANC) 2.55 1.70 - 6.10 x10(3)/[facility] Lymphocytes % 33.6 % [facility] Lymphocytes Abs 1.5 0.9 - 3.2 x10(3)/[facility] Monocytes % 6.5 % [facility] Monocyte Abs 0.3 0.3 - 0.9 x10(3)/[facility] Eosinophils % 2.2 % [facility] Eosinophils Abs 0.1 0.0 - 0.4 x10(3)/[facility] Basophils % 0.9 % [facility] Basophils Abs 0.0 0.0 - 0.1 x10(3)/[facility] Immature Gran % 0.00 % [facility] Comment: Immature granulocytes(IG's)percentage and absolute count will include metamyelocytes, myelocytes, and promyelocytes. Blood smears from CBCs yielding IG's will be scanned manually for concordance. If this scan disagrees with the automated IG or if promyelocytes are noted, a manual differential will be performed. Malika Gran Abs 0.00 0.00 - 0.04 x10(3)/[facility] Blood specimen (specimen) 10/18/2017 11:46 AM EDT 10/18/2017 12:50 PM EDT Narrative Resulting Agency Comment Spec In Lab Nabil Camargo MD HEMATOLOGY ORDERAB LES [facility] [place] [address] * (ABNORMAL) Hemogram (10/18/2017 11:46 AM EDT) [facility] WBC 4.5 4.0 - 9.5 x10(3)/[facility] RBC 4.45(L) 4.58 - 5.54 x10(6)/[facility] Hemoglobin 15.0 13.7 - 16.5 gm/dL [facility] Hematocrit 43.8 40.5 - 48.5 % [facility] MCV 98.4(H) 82.9 - 93.1 [facility] MCH 33.7(H) 27.5 - 32.[address] [facility] MCHC 34.2 32.0 - 35.7 gm/dL [facility] Platelets 221 145 - 357 x10(3)/[facility] RDWSD 44.6 36.0 - 45.0 [facility] RDWCV 12.2 11.4 - 13.8 % [facility] MPV 8.8 7.6 - 12.9 [facility] nRBC % Auto 0.0 % [facility] nRBC Abs Auto 0.000 0.000 - 0.000 x10(3)/[facility] Blood specimen (specimen) 10/18/2017 11:46 AM EDT 10/18/2017 12:50 PM EDT Narrative Resulting Agency Comment Spec In Lab Nabil Camargo MD HEMATOLOGY ORDERAB LES [facility] [place] [address] * (ABNORMAL) Comprehensive metabolic panel (non-fasting) (10/18/2017 11:46 AM EDT) [facility] Glucose Lvl 117 65 - 199 mg/dL [facility] Comment:Diabetes: >=200 mg/d L plus symptoms BUN 14 10 - 20 mg/dL [facility] Creatinine 1.03 0.80 - 1.50 mg/dL [facility] Sodium 143 135 - 145 mmol/L [facility] Potassium 3.9 3.5 - 5.0 mmol/L [facility] Comment: Please note: ??Patients with WBC >100,000 may have falsely elevated Potassium levels. ??For accurate Potassium quantification in these patients send serum separator tube (gold top) for subsequent determinations. ??Contact the Clinical Chemistry Laboratory if there are any questions. Chloride 100 98 - 107 mmol/L [facility] CO2 25 22 - 31 mmol/L [facility] Anion Gap 18(H) 5 - 15 mmol/L [facility] Calcium 9.1 8.5 - 10.5 mg/dL [facility] Total Protein 7.3 6.1 - 8.0 gm/dL [facility] Albumin 4.4 3.2 - 5.2 gm/dL [facility] AST 24 0 - 39 unit/L [facility] ALT 21 0 - 55 unit/L [facility] Alk Phos 68 40 - 120 unit/L [facility] Total Bilirubin 0.9 0.2 - 1.3 mg/dL [facility] Estimated GFR 77 >=60 mL/min/1. 73 m?? [facility] Comment: The eGFR was calculated using the CKD-EPI equation. As with all creatinine based estimates of kidney function, eGFR values calculated with the CKD-EPI equation are not accurate in patients with acute kidney failure, extremes of body mass or the acutely ill. [email or web address] eGFR 89 >=60 mL/min/1. 73 m?? [facility] Comment: The eGFR was calculated using the CKD-EPI equation. As with all creatinine based estimates of kidney function, eGFR values calculated with the CKD-EPI equation are not accurate in patients with acute kidney failure, extremes of body mass or the acutely ill. [email or web address] Blood specimen (specimen) 10/18/2017 11:46 AM EDT 10/18/2017 12:50 PM EDT Narrative Resulting Agency Comment Spec In Lab Nabil Camargo MD CHEMISTRY ORDERABL ES Performing Organization Address City/State/[facility] [place] [address] documented in this encounter Visit Diagnoses Diagnosis Prostate cancer Malignant neoplasm of prostate documented in this encounter Care Teams Tape Recorder Repairer Relationship Specialty Start Date End Date Clara Wood MD [address] [place] [address] PCP - General Family Medicine 01/26/17 documented as of this encounter
--- OUTSIDE RECORDS SUMMARY | 2023-10-11 01:49 | XMS_ITS | Encounter Summary ---
Author Organization [facility] [place] [address] Care Team Providers Care Media Marketing Manager Name Role Phone Clara Wood MD Primary Care Provider [phone] Encounter Details Date Type Department Care Team (Late st Contact Info) Description 05/30/2018 3:00 PM EST Office [place] [address] Nabil Camargo MD [facility] [place] [address] Malignant neoplasm of prostate Social History Tobacco [...] 36.8 ??C (98.3 ??F) 05/30/2018 2:18 PM ES T Respiratory Rate - - Oxygen Saturation - - Inhaled Oxygen Concentration - - Weight - - Height - - Body Mass Index - - documented in this encounter Progress Notes * Nabil Camargo MD - 05/30/2018 3:00 PM [...] 2, Margin + limited (<3mm) anterior apex. [place] 3 at margin. Overall, he is doing [...] EDT TH Visit (TeleHealth) Radiation Oncology at [address] [phone] Zahira Jaffe PA [facility] DR HEMATOLOGY [place] [address] documented as of this encounter Results * PSA (09/24/2018 8:39 AM EDT) PSA Total (Ultrasensitiv e) 0.02 0.00 - 4.00 ng/mL [facility] Blood specimen (specimen) 09/24/2018 8:39 AM EDT 09/24/2018 8:43 AM EDT Narrative Resulting Agency Comment Spec In Lab Nabil Camargo MD CHEMISTRY ORDERABL ES [facility] [place] [address] documented in this encounter Visit Diagnoses Diagnosis Malignant neoplasm of prostate documented in this encounter Care Teams Media Marketing Manager Relationship Specialty Start Date End Date Clara Wood MD [address] [place] [address] PCP - General Family Medicine 01/26/17 documented as of this encounter
--- OUTSIDE RECORDS SUMMARY | 2023-10-11 01:49 | XMS_ITS | Encounter Summary ---
Author Organization [facility] Alex[place]andra [place] [address] Care Team Providers Care Heel Wheeler Name Role Phone Clara Wood MD Primary Care Provider [phone] Reason for Visit * Auth/Cert Specialty Diagnoses / Procedures Referred By Lobo dean Referred To Contact Diagnoses Prostate Cancer Procedures PRO LAP, PROSTATECTOMY, RADICAL, W/NERVE SPARE LAPAROSCOPIC PROSTATECTOMY, ROBOTICS ASSISTED (WRVU 21.36) Referral ID Status Reason Start Date Expiration Date Visits Re quested Visits Authorized [id number] 1 1 Encounter Details Date Type Department Care Team (Latest Contact Info) Description 12/07/2017 6:44 AM EDT - 12/09/2017 4:27 PM EDT Hospital Encounter [address] [place] [address] Nabil Camargo MD [facility] [place] [address] Pre-operative exam; Prostate cancer Discharge Disposition: Home Social History Tobacco Use Types Packs/Day Years [...] 36.8 ??C (98.2 ??F) 12/09/2017 11:53 AM E DT Respiratory Rate 16 12/09/2017 11:53 AM EDT Oxygen Saturation 98% 12/09/2017 11:53 AM EDT Inhaled Oxygen Concentration - - Weight 87 kg (191 lb 12.8 oz) 12/07/2017 7:14 AM EDT Height 175.3 cm (5' 9) 12/07/2017 7:14 AM EDT Body Mass Index 28.32 12/07/2017 7:14 AM EDT documented in this encounter Discharge Summaries * Fabián Moore MD - 12/09/2017 2:40 PM [...] LAPAROSCOPIC PROSTATECTOMY, ROBOTICS ASSISTED (WRVU 21.36) MODIFIER ROBOT,RIYA XI HPI (from Dr. Camargo clinic note from 12/07/2017): Amanuel Hussein is a 62 y.o. 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 He was found to have an elevated PSA to 12 and underwent TRUS/PNBx on 08/06/2017 which found Sarah 4+4 prostate cancer as below: ?? DIAGNOSIS CONSULTATION CASE Outside slide(s) labeled [id number], collection date 08/06/2017. A - Prostate, base [...] core biopsy: Prostatic adenocarcinoma, Grade Group 3, [place] score 4+3, involving 70% of fragmented core (Sarah pattern 4 represents 60% of tumor). Perineural invasion is present. Suspicious for extraprostatic extension. H - Prostate, base left medial, needle core biopsy: Prostatic adenocarcinoma, Grade Group 3, Sarah score 4+3, involving 95% of a single core ([place] pattern 4 represents 60% of tumor). Perineural invasion is present. I - Prostate, mid left lateral, needle core biopsy: Prostatic adenocarcinoma, Grade Group 3, Sarah score 4+3, involving 90% of a single core ([place] pattern 4 represents 60% of tumor). Perineural invasion is present. J - Prostate, mid left medial, needle core biopsy: Prostatic adenocarcinoma, Grade Group 3, [place] score 4+3, involving 60% of a single core (Sarah pattern 4 represents 70% of tumor). Perineural invasion is present. K - Prostate, apex left lateral, needle core biopsy: Prostatic adenocarcinoma, Grade Group 3, [place] score 4+3, involving 100% of a single core ([place] pattern 4 represents 70% of tumor). Perineural invasion is present. L - Prostate, apex left medial, needle core biopsy: Prostatic adenocarcinoma, Grade Group 3, Sarah score 4+3, involving 100% of a single core ([place] pattern 4 represents 60% of tumor). Perineural [...] Hospital Course: Amanuel Hussein was admitted to [facility] 12/07/2017 through the Same Day Surgery [...] adequately controlled, he was maintaining adequate oxygen saturationon room air, and was hemodynamically stable. He [...] your primary care physician immediately or go tothe nearest Emergency Department. Your Medications Notice You have not been prescribed any medications. Follow-up Care & Plans: For questions, orders or appointments related to your continuing care after your discharge, you or your provider should contact the physician that managed that part of your care. Urology Clinic: [phone] PCP: Clara Wood MD, . Please follow-up with your PCP in 1-2 weeks or sooner as needed. Issues to be followed-up with your PCP: 1. Scheduled Appointments: The following appointments have been scheduled on your behalf: Future Appointments and Orders Future Appointments Provider Department Dept Phone 12/17/2017 9:40 AM Nabil Camargo MD [facility] [place] [phone] 12/17/2017 10:20 AM Nabil Camargo MD [facility] [place] [phone] 12/17/2017 10:20 AM UROLOGY, NURSE [facility] [place] [phone] 03/15/2018 9:15 AM Al Ortiz MD [facility] [place] [phone] Outpatient Services/Studies: No discharge procedures on file. [...] surgery to enter or exit your vehicle comfortably, or if you are too sore to easily [...] fruits, vegetables and fiber-containing foods are recommended. Thiswill assist in wound healing. WOUND CARE You [...] if it is not draining. Do not remove sutures or santi. WADE CATHETER CARE Please keep the Wade catheter in place and attached to the large drainage bag or the small leg bag. Do not remove the catheter. If the catheter [...] 9:40 AM Nabil Camargo MD [facility] [place] [phone] 12/17/2017 10:20 AM Nabil Camargo MD [facility] [place] [phone] 12/17/2017 10:20 AM UROLOGY, NURSE [facility] [place] [phone] 03/15/2018 9:15 AM Al Ortiz MD [facility] [place] [phone] General Instructions None Call your doctor if: [...] managed by the Urologic Surgery Team at [facility]. If you have any questions or concerns, please feel free to contact us. Provider Contact Information: Urology Clinic: [phone] [facility] (after business hours): CC: Clara Wood MD [...] them as documented. Isidro Gutierrez III, MD gill box fixer and Pediatrics [facility] [employer] Senior Staff Pediatric Urologist [facility] documented in this encounter Discharge Instructions * Patient Instructions* Fabián Moore MD - 12/07/2017 10:02 AM EDT DISCHARGE [...] surgery to enter or exit your vehicle comfortably, or if you are too sore to easily [...] fruits, vegetables and fiber-containing foods are recommended. Thiswill assist in wound healing. WOUND CARE You [...] if it is not draining. Do not remove sutures or santi. WADE CATHETER CARE Please keep the Wade catheter in place and attached to the large drainage bag or the small leg bag. Do not remove the catheter. If the catheter [...] 9:40 AM Nabil Camargo MD [facility] [place] [phone] 12/17/2017 10:20 AM Nabil Camargo MD [facility] [place] [phone] 12/17/2017 10:20 AM UROLOGY, NURSE [facility] [place] [phone] 03/15/2018 9:15 AM Al Ortiz MD [facility] [place] [phone] documented in this encounter Progress Notes * Vale Ribeiro RN - 12/09/2017 2:55 PM EDT Patient Name: Amanuel Hussein Patient Age: 62 y.o. Birthdate: 1955 Admit date: 12/07/2017 Attending Physician: Nabil Camargo MD Patient watched wade catheter video and provided with wade care supplies. Reviewed discharge and allowed for questions. * Rebecca Avitia RN - 12/08/2017 4:26 PM EDT Report received from [facility] at 1600. Pt received from [facility] at 1615 to 210-B. Pt oriented to unit and call VSS. at bedside. * Fabián Moore MD - 12/07/2017 7:51 PM [...] them as documented. Isidro Gutierrez III, MD gill box fixer and Pediatrics [facility] [employer] Senior Staff Pediatric Urologist [facility] * Aditi Uribe RN - 12/07/2017 6:31 PM EDT Arrived to floor this evening. Vital signs obtained. Wade with pink urine, patient complaining of urgency. Toradol and tylenol given as scheduled, pain rated a 4 out of 10. IVF infusing, PIV intact.Placed on clear liquid diet, chicken broth at bedside. * Darling Cardoza RN - 12/07/2017 1:36 PM EDT Break coverage. Pt c/o urgent need to pee, wade draining freely . Reassured, tx with toradol and dilaudid. * Amaya Reyna RN - 12/07/2017 1:00 PM EDT 1255 - Pt arrives to PACU via bed. Monitors on with alarms. Sleepy but arousable, denies pain and nausea. Report received and care assumed. 1400 - sleeping, no distress, awakes easily. 1535 - to BS. More awake, denies pain but feels like he has to pee. Given Ice chips documented in this encounter H&P Notes * Nabil Camargo MD - 12/07/2017 8:18 AM EDT The patient's history and physical exam have been reviewed and completed. There has been no interval change from that of the pre-operative history and physical exam done with myself on 10/18/2017. NAD nRRR CTA b/l OK to proceed with planned RALP / bilateral PLND. documented in this encounter Miscellaneous Notes * Plan of Care - Vale Ribeiro RN [...] krissy dressing soaked with bloody drainage. Dressing changed. Patient watched wade care video and given wade [...] Control Outcome: Ongoing (Interventions Implemented as Appropriate) 12/08/17202912/09/17820 Safety Interventions Isolation Precautions -- standard precautions [...] 12/08/17 1323 Interdisciplinary Rounds/Family Conf Participants nursing;patient;physician * Plan of Care - Susan Mcqueen RN [...] is out of the path and the IVtubing and cords are free from the floor), fall reduction program in place, lighting adjusted for task, bed in low position, wheels locked, side rails up (x2), nonskid socks worn OOB, [place] IDband on, no restraints, and call light is [...] facilitated;relaxation techniques promoted;self-care encouraged;verbalization of feelings encouraged * Plan of Care - Celena Carter RN [...] lymphoidectomy. A&O x4. HR camille down to mid-50s, other vitals stable on RA. Pt's wade catheter continues to put out moderate amounts of clear yellow urine, does need to be manually manipulated at times to enhance drainage. Catheter care performedat 09. MDs down to see pt, will check [...] maintained Infection Prevention environmental surveillance performed;equipment surfaces disinfected;rest/sleeppromoted;single patient room provided Coping Strategies Supportive Measures [...] 12/08/17 1323 Interdisciplinary Rounds/Family Conf Participants nursing;patient;physician * Plan of Care - Clover Greenwood - 12/08/2017 4:14 AM EDT Problem: Patient Care Overview Goal: Plan of Care Review 12/08/17 0407 Plan of Care Review Progress no change OUTCOME EVALUATION NOTE: OUTCOME SUMMARY: Patient is going in to POD1 s/p prostatectomy for prostate ca. Wade output started out clear pink,now draining yellow. KRISSY drain has minimal serosanguous drainage, Dressing saturated, dressing changed. Patient tolerated clears with out nausea or emesis. Continues on antibiotics and IV fluids. Paintolerable at 4/10 in abdomin. PLAN MOVING FORWARD: [...] Hourly rounding, fall precaution in place, call bellwithin reach, non slip footwear in use Patient-specific fall prevention interventions for sensory deficits provided, if applicable: [X] N/A CPG GOAL OUTCOME EVALUATION: * Op Note - Reji Feng - 12/07/2017 12:47 PM EDT [facility] Operative Note Patient Name: Amanuel Hussein : [id number] MR#: [id number] Case Date: 12/07/2017 Surgeon: Surgeon(s) and Role: [...] holding area. Consent was verified. The patient wastaken to the operating room and placed supine on the operating table. General anesthesia was induced. The patient was prepped and draped in the usual sterile fashion, and was secured to the table. A timeout was performed involving all members of the OR team confirming the patient's identity and planned procedure. Preoperative antibiotics were administered. Veress needle insufflation was performed at the planned supraumbilical port site. The abdomen was thoroughly insufflated to a pressure of 15 mm Hg. An 8 mm robotic trocar with a blunt tip was inserted. No bowel or vascular injury was noted in the abdomen. Three additional 8 mm robotic trocars were inserted in a linear fashion. A 12 mm administrative assistant front desk port was also inserted, through which AirSeal insufflation was established. A 5 mm administrative assistant front desk port was inserted several cm superior to the LEFT iliac spine. The supraumbilical 8 mm port was exchanged for a 12 mm trocar with an 8 cost specialist. Steep Trendelenberg position was achieved, the da Deborah Xi robot was docked with fenestrated bipolar forceps in theleft hand and monopolar scissors in the right hand. An incision was made on the peritoneum beneath the bladder. The vasa were identified and dissected.They were ligated and the bilateral seminal vesicles were also dissected free. The posterior plane was developed to the apex of the prostate. The bladder was dropped from the anterior abdominal wall by incising lateral to the medial umbilical ligaments. The pubic bone was identified and the space of Retzius developed. Fat was removed from the prostate and endopelvic fascia. The endopelvic fascia was incised bilaterally and the levator muscle swept from the prostate. The puboprostatic ligaments were taken and the apex exposed. The superficial dorsal vein was controlled with cautery. The dorsal venous complex was then ligated with a robotic stapler. The anterior bladder neck was opened and the catheter visualized. This was suspended under the pubic bone with the fourth arm. The posterior bladder neck was incised and the the posterior plane from prior dissection was entered. Incision of the posterior bladder neck was noted to be remote from theureteral orifices. It was noted to be thin and a reinforcement stitch was done with a 3-0 Vicryl. The vasa and seminal vesicles were brought into the field. The prostate pedicle was taken in packets on both sides using Weck clips. Nerve-sparing was performed bilaterally, right > left. The dorsalvein was incised to the urethra, which was [...] two interlocked 3-0 V-Loc sutures. The posterior plate was brought together, and the anastamosis was run superiorly on each side. This was tied at the 12o'clock position. The catheter was irrigated, and no leak was noted. The final catheter was inserted, and the balloon was inflated. Attention was turned to bilateral pelvic lymphadenectomy, starting on the LEFT. The medial umbilical ligament was retracted medially and traced to the internal iliac artery. The ureter was identifiedcrossing over the iliac bifurcation. The internal iliac packet was taken from caudal to cranial. The external iliac vein was noted and the packet underneath it was taken, skeletonizing the obturator n erve and vessels with the lateral border being the pelvic sidewall. This packet was taken en bloc, clipped and removed with careful preservation of the nerve and ureter. The same procedure was performed without incident on the contralateral side. The nodes were removed and sent to Pathology as a single specimen. No gross evidence of lymph node metastasis was noted. The 12 mm administrative assistant front desk port was closed with a Sae-Thomasen device. A Andrea drain was placed in the pelvis via an 8 mm port and secured with 2-0 Prolene drain stitch. All robotic ports were removed under vision. The prostate was extracted through the camera port under vision. The fascia was closed with 0 Vicryl suture in interrupted fashion. The skin incisions were closed with 4-0 Monocryl suture.Dermabond skin glue was applied. The patient tolerated the procedure well and was awakened from anesthesia with no adverse events. Asponge and instrument count was performed and the counts were correct. The patient was taken to therecovery area in stable condition. Dr. Camargo, the [...] opening and closing). Nabil Camargo MD 12/07/2017 * Brief Op Note - Reji Feng - 12/07/2017 12:44 PM EDT Brief Operative Note Patient Name: Amanuel Hussein : [id number] MR#: [id number] Case Date: 12/07/2017 Surgeon: Surgeon(s) and Role: [...] EDT TH Visit (TeleHealth) Radiation Oncology at [address] [address] Zahira Jaffe PA [facility] DR [place] [address] documented as of this encounter Procedures Procedure Name Priority Date/Time Associated Diagnosis Comments WELFARE SUPERVISOR SCAN 12/10/2017 12:00 AM EDT CREATININE LEVEL BODY FLUID Routine 12/09/2017 5:59 AM EDT HEMOGRAM Timed 12/09/2017 2:16 AM EDT DIFFERENTIAL, AUTOMATED Timed 12/10/19 18 2:16 AM EDT CBC (WITH DIFF) Timed 12/09/2017 2:16 AM EDT BASIC METABOLIC PANEL (NON-FASTING) Timed 12/09/2017 2:16 AM EDT HEMOGRAM Timed 12/08/2017 4:22 AM EDT DIFFERENTIAL, AUTOMATED Timed 12/09/19 18 4:22 AM EDT CBC (WITH DIFF) Timed 12/08/2017 4:22 AM EDT BASIC METABOLIC PANEL (NON-FASTING) Timed 12/08/2017 4:22 AM EDT LAPAROSCOPY W/ BRET TOTAL PELVIC LYMPH, ROBOTIC Routine 12/07/2017 12:54 PM EDT Prostate cancer SPECIMEN TO PATHOLOGY Routine 12/07/2017 11:43 AM EDT SPECIMEN TO PATHOLOGY Routine 12/07/2017 11:43 AM EDT SURGICAL PATHOLOGY REPORT Routine 12/07/2017 11:40 AM EDT ROBOTIC LAPAROSCOPY,WITH BILATERAL TOTAL PELVIC LYMPHADENECTOMY (WRVU 12) 12/07/2017 8:35 AM EDT Prostate cancer MODIFIER ROBOT,KEVINI XI 12/07/2017 8:35 AM EDT Prostate cancer ROBOTIC LAPAROSCOPIC PROSTATECTOMY (WRVU 22.46) 12/07/2017 8:35 AM EDT Prostate cancer ABORH RECHECK STATUS STAT 12/07/2017 6:53 AM EDT TYPE AND SCREEN, SDP (FUTURE SURGERY, [facility] SAME DAY PROGRAM ONLY) STAT 12/07/2017 6:53 AM EDT Pre-operative exam ABO/RH TYPING STAT 12/07/2017 6:53 AM EDT Pre-operative exam ANTIBODY SCREEN STAT 12/07/2017 6:53 AM EDT Pre-operative exam documented in this encounter Results * SCAN DOC: WELFARE SUPERVISOR (12/10/2017 12:00 AM EDT) Anatomical Region Laterality Modality Other Narrative 12/10/2017 12:00 AM EDT Ordered by an unspecified provider. Scanning Provider MEDIA MGR SCAN EXT O RDR/RSLT * Creatinine Level Body Fluid KRISSY Drain (12/09/2017 5:59 AM EDT) Creat, BF 1.0 mg/dL [facility] Comment: No reference range is available for the specimen type submitted. ??The performance of this assay for the submitted type has not been validated and results should be interpreted accordingly and with regard to the patient's clinical status. Creat, BF Type KRISSY Drain [facility] KRISSY Drain 12/09/2017 5:59 AM EDT 12/09/2017 6:07 AM EDT Narrative Resulting Agency Comment Spec In Lab Nabil Camargo MD BODY FLUIDS AND ST OOLS ORDERABLES Performing Organization Address City/[facility]/ZIP Co de Phone Number [facility] [place] [address] * Differential, Automated (12/09/2017 2:16 AM EDT) Neutrophils % 60.8 % [facility] Neutr Abs (ANC) 4.25 1.70 - 6.10 x10(3)/[facility] Lymphocytes % 28.4 % [facility] Lymphocytes Abs 2.0 0.9 - 3.2 x10(3)/[facility] Monocytes % 10.1 % [facility] Monocyte Abs 0.7 0.3 - 0.9 x10(3)/[facility] Eosinophils % 0.3 % [facility] Eosinophils Abs 0.0 0.0 - 0.4 x10(3)/[facility] Basophils % 0.3 % [facility] Basophils Abs 0.0 0.0 - 0.1 x10(3)/[facility] Immature Gran % 0.10 % [facility] Comment: Immature granulocytes(IG's)percentage and absolute count will include metamyelocytes, myelocytes, and promyelocytes. Blood smears from CBCs yielding IG's will be scanned manually for concordance. If this scan disagrees with the automated IG or if promyelocytes are noted, a manual differential will be performed. Malika Gran Abs 0.01 0.00 - 0.04 x10(3)/[facility] Blood specimen (specimen) 12/09/2017 2:16 AM EDT 12/09/2017 2:37 AM EDT Narrative Resulting Agency Comment Spec In Lab Reji Feng MD HEMATOLOGY ORDERABLE S Performing Organization Address City/[facility]/ZIP Co de Phone Number [facility] [place] [address] * (ABNORMAL) Hemogram (12/09/2017 2:16 AM EDT) Pathologist [facility] [place] WBC 7.0 4.0 - 9.5 x10(3)/[facility] RBC 3.76(L) 4.58 - 5.54 x10(6)/[facility] Hemoglobin 12.6(L) 13.7 - 16.5 gm/dL [facility] Hematocrit 36.7(L) 40.5 - 48.5 % [facility] MCV 97.6(H) 82.9 - 93.1 fL [facility] MCH 33.5(H) 27.5 - 32.1 pg [facility] MCHC 34.3 32.0 - 35.7 gm/dL [facility] Platelets 179 145 - 357 x10(3)/[facility] RDWSD 42.9 36.0 - 45.0 [facility] RDWCV 11.9 11.4 - 13.8 % [facility] MPV 8.8 7.6 - 12.9 [facility] nRBC % Auto 0.0 % [facility] nRBC Abs Auto 0.000 0.000 - 0.000 x10(3)/[facility] Blood specimen (specimen) 12/09/2017 2:16 AM EDT 12/09/2017 2:37 AM EDT Narrative Resulting Agency Comment Spec In Lab Reji Feng MD HEMATOLOGY ORDERABLE S [facility] [place] [address] * (ABNORMAL) Basic Metabolic Panel (non-fasting) (12/09/2017 2:16 AM EDT) Pathologist [facility] [place] Glucose Lvl 119 65 - 199 mg/dL [facility] Comment:Diabetes: >=200 mg/d L plus symptoms BUN 19 10 - 20 mg/dL [facility] Creatinine 0.98 0.80 - 1.50 mg/dL [facility] Sodium 142 135 - 145 mmol/L [facility] Potassium 4.2 3.5 - 5.0 mmol/L [facility] Comment: Please note: ??Patients with WBC >100,000 may have falsely elevated Potassium levels. ??For accurate Potassium quantification in these patients send serum separator tube (gold top) for subsequent determinations. ??Contact the Clinical Chemistry Laboratory if there are any questions. Chloride 108(H) 98 - 107 mmol/L [facility] CO2 25 22 - 31 mmol/L [facility] Anion Gap 9 5 - 15 mmol/L [facility] Calcium 8.0(L) 8.5 - 10.5 mg/dL [facility] Estimated GFR 82 >=60 mL/min/1. 73 m?? [facility] Comment: The eGFR was calculated using the CKD-EPI equation. As with all creatinine based estimates of kidney function, eGFR values calculated with the CKD-EPI equation are not accurate in patients with acute kidney failure, extremes of body mass or the acutely ill. [email or web address] eGFR 95 >=60 mL/min/1. 73 m?? [facility] Comment: The eGFR was calculated using the CKD-EPI equation. As with all creatinine based estimates of kidney function, eGFR values calculated with the CKD-EPI equation are not accurate in patients with acute kidney failure, extremes of body mass or the acutely ill. [email or web address] Blood specimen (specimen) 12/09/2017 2:16 AM EDT 12/09/2017 2:37 AM EDT Narrative Resulting Agency Comment Spec In Lab Nabil Camargo MD CHEMISTRY ORDERABL ES [facility] [place] [address] * (ABNORMAL) Differential, Automated (12/08/2017 4:22 AM EDT) Neutrophils % 82.4 % [facility] Neutr Abs (ANC) 6.18(H) 1.70 - 6.10 x10(3)/[facility] Lymphocytes % 8.5 % [facility] Lymphocytes Abs 0.6(L) 0.9 - 3.2 x10(3)/[facility] Monocytes % 8.8 % [facility] Monocyte Abs 0.7 0.3 - 0.9 x10(3)/[facility] Eosinophils % 0.0 % [facility] Eosinophils Abs 0.0 0.0 - 0.4 x10(3)/[facility] Basophils % 0.0 % [facility] Basophils Abs 0.0 0.0 - 0.1 x10(3)/[facility] Immature Gran % 0.30 % [facility] Comment: Immature granulocytes(IG's)percentage and absolute count will include metamyelocytes, myelocytes, and promyelocytes. Blood smears from CBCs yielding IG's will be scanned manually for concordance. If this scan disagrees with the automated IG or if promyelocytes are noted, a manual differential will be performed. Malika Gran Abs 0.02 0.00 - 0.04 x10(3)/[facility] LABORATORY Blood specimen (specimen) 12/08/2017 4:22 AM EDT 12/08/2017 4:41 AM EDT Narrative Resulting Agency Comment Spec In Lab Reji Feng MD HEMATOLOGY ORDERABLE S [facility] [place] [address] * (ABNORMAL) Hemogram (12/08/2017 4:22 AM EDT) WBC 7.5 4.0 - 9.5 x10(3)/[facility] LABORATORY RBC 3.77(L) 4.58 - 5.54 x10(6)/[facility] LABORATORY Hemoglobin 12.4(L) 13.7 - 16.5 gm/dL [facility] Hematocrit 35.8(L) 40.5 - 48.5 % [facility] MCV 95.0(H) 82.9 - 93.1 [facility] LABORATORY MCH 32.9(H) 27.5 - 32.1 pg [facility] MCHC 34.6 32.0 - 35.7 gm/dL [facility] Platelets 179 145 - 357 x10(3)/[facility] LABORATORY RDWSD 40.6 36.0 - 45.0 [facility] LABORATORY RDWCV 11.7 11.4 - 13.8 % [facility] MPV 8.7 7.6 - 12.9 [facility] LABORATORY nRBC % Auto 0.0 % [facility] LABORATORY nRBC Abs Auto 0.000 0.000 - 0.000 x10(3)/[facility] LABORATORY Blood specimen (specimen) 12/08/2017 4:22 AM EDT 12/08/2017 4:41 AM EDT Narrative Resulting Agency Comment Spec In Lab Reji Feng MD HEMATOLOGY ORDERABLE S [facility] [place] [address] * (ABNORMAL) Basic Metabolic Panel (non-fasting) (12/08/2017 4:22 AM EDT) Glucose Lvl 126 65 - 199 mg/dL [facility] Comment:Diabetes: >=200 mg/d L plus symptoms BUN 19 10 - 20 mg/dL [facility] Creatinine 1.09 0.80 - 1.50 mg/dL [facility] Sodium 138 135 - 145 mmol/L [facility] Potassium 4.3 3.5 - 5.0 mmol/L [facility] Comment: Please note: ??Patients with WBC >100,000 may have falsely elevated Potassium levels. ??For accurate Potassium quantification in these patients send serum separator tube (gold top) for subsequent determinations. ??Contact the Clinical Chemistry Laboratory if there are any questions. Chloride 104 98 - 107 mmol/L [facility] CO2 22 22 - 31 mmol/L [facility] Anion Gap 12 5 - 15 mmol/L [facility] Calcium 7.7(L) 8.5 - 10.5 mg/dL [facility] Estimated GFR 72 >=60 mL/min/1. 73 m?? [facility] Comment: The eGFR was calculated using the CKD-EPI equation. As with all creatinine based estimates of kidney function, eGFR values calculated with the CKD-EPI equation are not accurate in patients with acute kidney failure, extremes of body mass or the acutely ill. [email or web address] eGFR 83 >=60 mL/min/1. 73 m?? [facility] Comment: The eGFR was calculated using the CKD-EPI equation. As with all creatinine based estimates of kidney function, eGFR values calculated with the CKD-EPI equation are not accurate in patients with acute kidney failure, extremes of body mass or the acutely ill. [email or web address] Blood specimen (specimen) 12/08/2017 4:22 AM EDT 12/08/2017 4:41 AM EDT Narrative Resulting Agency Comment Spec In Lab Nabil Camargo MD CHEMISTRY ORDERABL ES [facility] [place] [address] * Specimen to Pathology (12/07/2017 11:43 AM EDT) AP Specimen 12/07/2017 11:4 3 AM EDT 12/07/2017 12:40 PM EDT Narrative [facility] - 12/07/2017 12:40 PM EDT Specimen requisition ordered. ??Separate Pathology report to follow Resulting Agency Comment Spec In Lab Nabil Camargo MD PATHOLOGY/CYTOLOGY ORDERABLES Performing Organization Address [facility] Co de Phone Number [facility] [place] [address] * Specimen to Pathology (12/07/2017 11:43 AM EDT) AP Specimen 12/07/2017 11:4 3 AM EDT 12/07/2017 12:40 PM EDT Narrative [facility] - 12/07/2017 12:40 PM EDT Specimen requisition ordered. ??Separate Pathology report to follow Resulting Agency Comment Spec In Lab Nabil Camargo MD PATHOLOGY/CYTOLOGY ORDERABLES Performing Organization Address [facility] [place] [address] * Surgical Pathology Report (12/07/2017 11:40 AM EDT) Pathologist [facility] [place] Surgical Pathology Report [id number] ? Location: 2WST; 0210; B The signing pathologist has (i) examined the relevant preparation(s) for the specimen(s) and (ii) rendered or confirmed the diagnosis(es). . ?Surgical Pathology DIAGNOSIS A - Bilateral pelvic lymph nodes, excision: ?Two lymph nodes, no evidence of malignancy (0/2). B - Prostate gland, resection: ?1. Prostatic adenocarcinoma, grade group 2, [place] ? grade 3+4 (see Synoptic Report). ?2. Small periprostatic lymph node, no evidence of ? malignancy (0/1). SYNOPTIC REPORT Specimen ? Procedure: ??Radical prostatectomy Tumor ? Histologic Type: ?? Acinar adenocarcinoma ? Histologic Grade ?Primary [place] Pattern: ?? Pattern 3 ?Secondary Sarah Pattern: ?? Pattern 4 ?Total [place] Score: ?? 7 ?Grade Group: ??2 ?Percentage of Pattern 4: ?? 40% ? Tumor Extent ?Tumor Location: ?? Bilateral, all 4 quadrants, predominantly left anterior ? and posterior; apex involved by tumor ?Tumor Quantitation: ?? Estimated Percentage of Prostate Involved by Tumor - ? 27% ?Extraprostatic Extension (EPE): ?? Present, nonfocal ? Location of Extraprostatic Extension: ?Left posterior ?Urinary Bladder Neck Invasion: ?? Not identified ?Seminal Vesicle Invasion: ?? Not identified ? Accessory Findings ?Lymphovascular Invasion: ?? Not Identified ?Perineural Invasion: ?? Present Margins ? Margins: ??Involved by invasive carcinoma ?Margin Limitations: ?? Limited (< 3 mm) ?Focality: ??Unifocal ?Location of Positive Margin(s): ?? Anterior apex ?Margin Positivity in Area of Extraprostatic Extension (EPE): ? [...] Enrique Bain Verified: ??12/13/2017 ?Pathologist Performed at: ??-[facility] Dept. of Pathology, [place], [place] DISCUSSION In addition to the tumor present at the inked anterior apical specimen resection margin, the carcinoma in foci extends to within 0.1 mm of the capsular margin. A recent study demonstrates that tumor within 0.01 cm (0.1 mm) but not at, the margin of a pT2 node-negative radical prostatectomy is associated with a biochemical recurrence rate that is similar to that of patients with a positive surgical margin (i.e. tumor cells touching ink). (Vern CEVALLOS et al. Mod Pathol 2013;26(suppl. 2),253A). Scanned slides: [id number] [id number] CLINICAL INFORMATION Specimen Submitted: A - Bilateral pelvic lymph nodes B - Prostate Clinical History and Diagnosis: Prostate cancer SPECIMEN PROCESSING A - ??Labeled/Fixativ e: Bilateral pelvic lymph nodes, fresh. Quantity/Size: Multiple, 5 x 3.5 x 2 cm. Tissue Description: Two lymph nodes measuring up to 3.0 x 1.0 x 0.5 cm, brown-yellow adipose tissue. Sections/Processi ng: (1-2) a lymph node in 11 pieces; (3) a trisected lymph node. (R3) B - Labeled/Fixative: Prostate, fresh. Specimen Description: Intact, radical prostatectomy, oriented. DIMENSIONS/WEIGHT Weight: 39 grams. Elmer to base: 4.4 cm. Transverse: 4.1 cm. Anterior to posterior: 3.3 cm. Rt Seminal Vesicle: 1.5 x 0.7 x 0.3 cm. Lt Seminal Vesicle: 1.9 x 0.9 x 0.4 cm. Rt Vas Deferens: 2.1 cm. Lt Vas Deferens: 2.4 cm. PROSTATE Outer Surface: tse-pink smooth glistening. Cut Surface: Brown yellow lesion, involving 25 percent of prostate. The right half of the specimen is inked with Audrey ink and the left half with yellow ink. ??The prostate is serially sectioned from apex to base at 3-mm intervals. Sections of even-numbered transverse slices, as well as odd-numbered slices with grossly identified tumor, are submitted in the following sequence: ??right anterior quadrant, right posterior quadrant, left anterior quadrant, and left posterior quadrant. SECTIONS/PROCESSI NG: (1-3) bladder neck margin; (4) apical anterior margin; (5) apical posterior margin. ??Slices II-X are entirely submitted in the sequence of quadrants as noted above, as follows: ??(6-9) slice II; (10-13) slice IV; (14-17) . SPECIMEN PROCESSING slice V; (18-21) slice ; ??(22-25) slice VIII; (26-29) slice IX; (30-33) slice X; (34) right seminal vesicle root to prostate tissue; (35-36) left seminal vesicle root to prostate tissue; (37) Right and left vas deferns margins en face; (38) patient intake representative distal right seminal vesicle; ; (39) patient intake representative distal left seminal vesicle; (40) core biopsy, RA; (41) core biopsy RP, (42) core biopsy LA; (43) core biopsy LP. ??(R43) ?? [facility] 12/07/2017 11:4 0 AM EDT Nabil Camargo MD PATHOLOGY/CYTOLOGY ORDERABLES [facility] [place] [address] * ABORH Recheck Status (12/07/2017 6:53 AM EDT) ABORH Type Recheck Completed [facility] Blood specimen (specimen) 12/07/2017 6:53 AM EDT 12/07/2017 6:55 AM EDT Narrative Resulting Agency Comment Spec In Lab Nabil Camargo MD BLOOD BANK LAB ORD ERABLES Performing Organization Address [facility]/ZIP Co de Phone Number [facility] [place] [address] * Antibody screen (12/07/2017 6:53 AM EDT) Ab Screen Interp Negative [facility] Expires at [id number] on: 12/10/2017 [facility] Blood specimen (specimen) 12/07/2017 6:53 AM EDT 12/07/2017 6:55 AM EDT Narrative Resulting Agency Comment Spec In Lab Nabil Camargo MD BLOOD BANK LAB ORD ERABLES Performing Organization Address [facility] Co de Phone Number [facility] [place] [address] * ABO/Rh Typing (12/07/2017 6:53 AM EDT) ABORH Type B Pos [facility] Blood specimen (specimen) 12/07/2017 6:53 AM EDT 12/07/2017 6:55 AM EDT Narrative Resulting Agency Comment Spec In Lab Nabil Camargo MD BLOOD BANK LAB ORD ERABLES Performing Organization Address [facility] Co de Phone Number [facility] [place] [address] documented in this encounter Visit Diagnoses Diagnosis Pre-operative exam Preoperative examination, unspecified Prostate cancer Malignant neoplasm of prostate documented in this encounter Admitting Diagnoses Diagnosis Prostate cancer Malignant neoplasm of prostate documented in this encounter Administered Medications Inactive Administered Medications - up to 3 most recent administrations Medication Order MAR Action Action Date Dose Rate Site acetaminophen (TYLENOL) tablet 1,000 mg 1,000 mg, Oral, ONCE, 1 dose, On Sun12/07/17 at 0745, Administer with SIP of H2O only., Day of Surgery (Day of Procedure), Routine Given 12/07/2017 7:45 AM EDT 1,000 mg acetaminophen (TYLENOL) tablet 1,000 mg 1,000 mg, Oral, EVERY 6 HOURS SCHEDULED, First dose on Sun12/07/17 at 1400, Until Discontinued, Maximum dose of acetaminophen is 4000 mg from all sources in 24 hours., Routine Given 12/09/2017 11:49 AM EDT 1,000 mg Given 12/09/2017 5:54 AM EDT 1,000 mg Given 12/09/2017 12:13 AM EDT 1,000 mg ceFAZolin (ANCEF) 2g in dextrose 5% 100 mL 2 g, Intravenous, EVERY 8 HOURS, 2 doses, First dose (after last reorder) on Sun12/07/17 at 2000, Last dose on Sun12/08/17 at 0400, Administer over 30 Minutes, Indication for (Active or Suspected): Prophylaxis New Bag 12/08/2017 3:06 AM EDT 2 g 200 mL/ hr New Bag 12/07/2017 8:14 PM EDT 2 g 200 mL/hr docusate sodium (COLACE) capsule 100 mg 100 mg, Oral, 2 TIMES DAILY, First dose on Sun12/07/17 at 2100, Until Discontinued, Routine Given 12/09/2017 8:11 AM EDT 100 mg Given 12/08/2017 8:33 PM EDT 100 mg Given 12/08/2017 8:48 AM EDT 100 mg gabapentin (NEURONTIN) capsule 600 mg 600 mg, Oral, ONCE, 1 dose, On Sun12/07/17 at 0745, Administer with SIP of H2O only., Day of Surgery (Day of Procedure), Routine Given 12/07/2017 7:45 AM EDT 600 mg heparin (Porcine) subcutaneous injection 5,000 Units 5,000 Units, Subcutaneous, 30 MIN PRE-OP, 1 dose, On Sun12/07/17 at 0745, Day of Surgery (Day of Procedure), Routine Given 12/07/2017 7:45 AM EDT 5,000 Units heparin (Porcine) subcutaneous injection 5,000 Units 5,000 Units, Subcutaneous, EVERY 8 HOURS SCHEDULED, First dose on Sun12/07/17 at 1730, Until Discontinued, Routine Given 12/09/2017 2:47 PM EDT 5,000 Unit s Given 12/09/2017 5:54 AM EDT 5,000 Units Given 12/08/2017 6:03 PM EDT 5,000 Units HYDROmorphone (DILAUDID) injection 0.2-0.4 mg 0.2-0.4 mg, Intravenous, EVERY 5 MIN [...] fentanyl for breakthrough pain., PACU Recovery, Routine Given 12/07/2017 1:32 PM EDT 0.4 mg ketorolac (TORADOL) injection 15 mg 15 mg, Intravenous, EVERY 6 HOURS SCHEDULED, 6 doses, First dose on Sun12/07/17 at 1330, Last dose on Sun12/08/17 at 1800, Routine Given 12/08/2017 6:03 PM EDT 15 mg Given 12/08/2017 12:19 PM EDT 15 mg Given 12/08/2017 6:05 AM EDT 15 mg lactated Ringers infusion 1,000 mL 1,000 mL, at 100 mL/hr, Intravenous, CONTINUOUS, Starting on Sun12/07/17 at 0745, Until Sun12/07/17 at 1627, Day of Surgery (Day of Procedure) New Bag 12/07/2017 7:45 AM EDT 1,000 mLs 100 mL/hr ondansetron (ZOFRAN) injection 4 mg 4 mg, Intravenous, EVERY 8 HOURS PRN, Starting on Sun12/07/17 at 1709, Until Sun12/09/17 at 1827, Nausea, May repeat times one in 30 minutes if ineffective. If multiple antiemetics are ordered, use ondansetron first., Recovery (Recovery-Hospital Unit) ondansetron (ZOFRAN) tablet [...] PRN, Starting on Sun12/07/17 at 1313, Until 12/09/17 at 1827, Pain, severe pain (7-10), Initial dose 10mg. If pain control not adequate in 60 minutes, give additional 5mg, Routine oxyCODONE (ROXICODONE) immediate release tablet 5-10 mg 5-10 mg, Oral, EVERY 4 HOURS PRN, Starting on Sun12/07/17 at 1313, Until Sun12/09/17 at 1827, Pain, moderate pain (4-6), Initial dose 5mg. If pain control not adequate in 60 minutes, give additional 5mg, Routine Given 12/09/2017 2:51 PM EDT 5 mg sodium chloride 0.9 % flush 5 mL 5 mL, Intravenous, 2 TIMES DAILY, First dose on Sun12/07/17 at 2100, Until Discontinued, Recovery (Recovery-Hospital Unit), Routine Given 12/09/2017 8:11 AM EDT 5 mLs Given 12/08/2017 8:34 PM EDT 5 mLs Given 12/08/2017 8:04 AM EDT 5 mLs sodium chloride 0.9% infusion 1,000 mL, at 100 mL/hr, Intravenous, CONTINUOUS, Starting on Sun12/07/17 at 1330, Until Sun12/09/17 at 1827, Recovery (Recovery-Hospital Unit) New Bag 12/08/2017 4:42 PM EDT 1,000 mLs 100 mL/hr New Bag 12/08/2017 12:00 AM EDT 1,000 mLs 100 mL/hr New Bag 12/07/2017 1:19 PM EDT 1,000 mLs 100 mL/hr documented in this encounter Active and Recently Administered Medications Times are shown in EDT. Scheduled Medication Order 12/07/2017 12/08/2017 12/09/2017 acetaminophen (TYLENOL) tablet 1,000 mg (COMPLETED) 1,000 mg, Oral, ONCE, 1 dose, On Sun12/07/17 at 0745, Administer with SIP of H2O only., Day of Surgery (Day of Procedure), Routine 0745 (Given - Provider: Ruthie Peters, ANA) acetaminophen (TYLENOL) tablet 1,000 mg 1,000 mg, Oral, EVERY 6 HOURS SCHEDULED, First dose on Sun12/07/17 at 1400, Until Discontinued, Maximum dose of acetaminophen is 4000 mg from all sources in 24 hours., Routine 1709 (Not Given - Provider: Aditi Uribe, ANA - Reason: Transfer to a Procedural area)1800 (Given - Provider: Aditi Uribe RN)2359 (Given - Provider: Clover Greenwood) 0605 (Given - Provider: Clover Greenwood)1407 (Given - Provider: Celena Carter, ANA)1803 (Given - Provider: [place] Avitia RN) 0013 (Given - Provider: Susan Mcqueen, ANA)0554 (Given - Provider: Susan Mcqueen RN)1149 (Given - Provider: Vale Ribeiro RN) ceFAZolin (ANCEF) 2g in dextrose 5% 100 mL (COMPLETED) 2 g, Intravenous, TOWBOAT CAPTAIN TO O.R., 1 dose, On Sun12/07/17 at 0745, Administer over 30 Minutes, Day of Surgery (Day of Procedure), Indication for (Active or Suspected): Prophylaxis 0915 (Given - Provider: Chikis Farley)1213 (Given - Provider: Maria E Holder MD) ceFAZolin (ANCEF) 2g in dextrose 5% 100 mL (COMPLETED) 2 g, Intravenous, EVERY 8 HOURS, 2 doses, First dose (after last reorder) on Sun12/07/17 at 2000, Last dose on Sun12/08/17 at 0400, Administer over 30 Minutes, Indication for (Active or Suspected): Prophylaxis 2013 (New Bag - Provider: Clover Greenwood)2043 (Stopped - Provider: Clover Greenwood) 0306 (New Bag - Provider: Clover Greenwood)0336 (Stopped - Provider: Clover Greenwood) docusate sodium (COLACE) capsule 100 mg 100 mg, Oral, 2 TIMES DAILY, First dose on Sun12/07/17 at 2100, Until Discontinued, Routine 2011 (Given - Provider: Clover Greenwood) 0848 (Given - Provider: Celena Carter, ANA)2033 (Given - Provider: Susan Mcqueen, ANA) 0811 (Given - Provider: Vale Ribeiro, ANA) gabapentin (NEURONTIN) capsule 600 mg (COMPLETED) 600 mg, Oral, ONCE, 1 dose, On Sun12/07/17 at 0745, Administer with SIP of H2O only., Day of Surgery (Day of Procedure), Routine 0745 (Given - Provider: Ruthie Peters, ANA) heparin (Porcine) subcutaneous injection 5,000 Units (COMPLETED) 5,000 Units, Subcutaneous, 30 MIN PRE-OP, 1 dose, On Sun12/07/17 at 0745, Day of Surgery (Day of Procedure), Routine 0745 (Given - Provider: Ruthie Peters RN) heparin (Porcine) subcutaneous injection 5,000 Units 5,000 Units, Subcutaneous, EVERY 8 HOURS SCHEDULED, First dose on Sun12/07/17 at 1730, Until Discontinued, Routine 1800 (Given - Provider: Aditi Uribe RN) 0306 (Given - Provider: Clover Greenwood)0909 (Given - Provider: Celena Carter RN)1803 (Given - Provider: [place] Avitia, ANA) 0554 (Given - Provider: Susan Mcqueen, ANA)1447 (Given - Provider: Vale Ribeiro, ANA) ketorolac (TORADOL) injection 15 mg (COMPLETED) 15 mg, Intravenous, EVERY 6 HOURS SCHEDULED, 6 doses, First dose on Sun12/07/17 at 1330, Last dose on Sun12/08/17 at 1800, Routine 1328 (Given - Provider: Darling Cardoza RN)1800 (Given - Provider: Aditi Uribe RN)2357 (Given - Provider: Clover Greenwood) 0605 (Given - Provider: Clover Greenwood)1219 (Given - Provider: Celena Crater RN)1803 (Given - Provider: [place] Avitia, ANA) sodium chloride 0.9 % flush 5 mL 5 mL, Intravenous, 2 TIMES DAILY, First dose on Sun12/07/17 at 2100, Until Discontinued, Recovery (Recovery-Hospital Unit), Routine 2100 (Not Given - Provider: Clover Greenwood - Reason: See comment) 0804 (Given - Provider: Celena Carter, RN)2034 (Given - Provider: Susan Mcqueen, RN) 0811 (Given - Provider: Vale Ribeiro, ANA) Continuous Medication Order 12/07/2017 12/08/2017 12/09/2017 lactated Ringers infusion 1,000 mL (CANCELED) 1,000 mL, at 100 mL/hr, Intravenous, CONTINUOUS, Starting on Sun12/07/17 at 0745, Until Sun12/07/17 at 1627, Day of Surgery (Day of Procedure) 0745 (New Bag - Provider: Ruthie Peters, ANA) sodium chloride 0.9% infusion 1,000 mL, at 100 mL/hr, Intravenous, CONTINUOUS, Starting on Sun12/07/17 at 1330, Until Sun12/09/17 at 1827, Recovery (Recovery-Hospital Unit) 1319 (New Bag - Provider: Amaya Reyna RN) 0000 (New Bag - Provider: Clover Greenwood)1642 (New Bag - Provider: [place] Avitia, ANA) PRN Medication Order 12/07/2017 12/08/2017 12/09/2017 BUpivacaine (SENSORCAINE) 0.25 % (2.5 mg/mL) injection (CANCELED) ONCE PRN, Starting on Sun12/07/17 at 1254, Until Sun12/09/17 at 1827, Intra-Operative (Intra-Procedure), Routine 1254 (Given - Provider: Reji Feng) HYDROmorphone (DILAUDID) injection 0.2-0.4 mg (CANCELED) 0.2-0.4 mg, Intravenous, EVERY 5 MIN PRN, [...] fentanyl for breakthrough pain., PACU Recovery, Routine 1332 (Given - Provider: Darling Cardoza, ANA) lidocaine (XYLOCAINE) 10 mg/mL (1 %) injection 3 mg 3 mg (0.3 mL), Subcutaneous, ONCE PRN, 1 dose, Starting on Sun12/07/17 at 1709, Until 12/09/17 at 1827, for discomfort with PIV insertion, Recovery (Recovery-Hospital Unit), Routine ondansetron (ZOFRAN) injection 4 mg(Linked Group 1) 4 mg, Intravenous, EVERY 8 HOURS PRN, Starting on Sun12/07/17 at 1709, Until 12/09/17 at 1827, Nausea, May repeat times one in 30 minutes if ineffective. If multiple antiemetics are ordered, use ondansetron first., Recovery (Recovery-Hospital Unit) ondansetron (ZOFRAN) tablet 4 mg(Linked Group 1) 4 mg, Oral, EVERY 8 HOURS PRN, Starting on Sun12/07/17 at 1709, Until 12/09/17 at 1827, Nausea, Vomiting, If multiple antiemetics are ordered, use ondansetron first. PO Preferred. If patient unable to take PO, may give IV if ordered. May repeat times one in 45 minutes if ineffective., Recovery (Recovery-Hospital Unit), Routine oxyCODONE (ROXICODONE) immediate release tablet 10-15 mg(Linked Group 2) 10-15 mg, Oral, EVERY 4 HOURS PRN, Starting on Sun12/07/17 at 1313, Until 12/09/17 at 1827, Pain, severe pain (7-10), Initial dose 10mg. If pain control not adequate in 60 minutes, give additional 5mg, Routine 1451 (See Alternativ e - Provider: Vale Ribeiro RN) oxyCODONE (ROXICODONE) immediate release tablet 5-10 mg(Linked Group 2) 5-10 mg, Oral, EVERY 4 HOURS PRN, Starting on Sun12/07/17 at 1313, Until 12/09/17 at 1827, Pain, moderate pain (4-6), Initial dose 5mg. If pain control not adequate in 60 minutes, give additional 5mg, Routine 1451 (Given - Provid er: Vale Ribeiro RN) sodium chloride 0.9 % flush 5-20 mL 5-20 mL, Intravenous, EVERY 1 MIN PRN, Starting on Sun12/07/17 at 1709, Until 12/09/17 at 1827, flush, Flush pertains to all indwelling lines. Flush per protocol found in the job aid using the link provided on this medication record., Recovery (Recovery-Hospital Unit), Routine Linked Groups Order Group 1: ondansetron (ZOFRAN) tablet 4 mgJump to med 4 mg, Oral, EVERY 8 HOURS PRN, Starting on Sun12/07/17 at 1709, Until 12/09/17 at 1827, Nausea, Vomiting, If multiple antiemetics are ordered, use ondansetron first. PO Preferred. If patient unable to take PO, may give IV if ordered. May repeat times one in 45 minutes if ineffective., Recovery (Recovery-Hospital Unit), Routine Or ondansetron (ZOFRAN) injection 4 mgJump to med 4 mg, Intravenous, EVERY 8 HOURS PRN, Starting on Sun12/07/17 at 1709, Until Sun12/09/17 at 1827, Nausea, May repeat times one in 30 minutes if ineffective. If multiple antiemetics are ordered, use ondansetron first., Recovery (Recovery-Hospital Unit) Group 2: oxyCODONE (ROXICODONE) immediate release tablet 5-10 mgJump to med 5-10 mg, Oral, EVERY 4 HOURS PRN, Starting on Sun12/07/17 at 1313, Until 12/09/17 at 1827, Pain, moderate pain (4-6), Initial dose 5mg. If pain control not adequate in 60 minutes, give additional 5mg, Routine Or oxyCODONE (ROXICODONE) immediate release tablet 10-15 mgJump to med 10-15 mg, Oral, EVERY 4 HOURS PRN, Starting on Sun12/07/17 at 1313, Until 12/09/17 at 1827, Pain, severe pain (7-10), Initial dose 10mg. If pain control not adequate in 60 minutes, give additional 5mg, Routine documented in this encounter Care Teams Heel Wheeler Relationship Specialty Start Date End Date Clara Wood MD [facility] VALENTINE ROSEN [address] [place] [id number] PCP - General Family Medicine 01/26/17 documented as of this encounter
--- OUTSIDE RECORDS SUMMARY | 2023-10-11 01:49 | XMS_ITS | Encounter Summary ---
Author Organization [facility] [place] [address] Care Team Providers Care Linux System Admin Name Role Phone Clara Wood MD Primary Care Provider [phone] Reason for Visit * Auth/Cert Specialty Diagnoses / Procedures Referred By Lobo dean Referred To Contact Diagnoses Prostate Cancer Procedures PRO LAP, PROSTATECTOMY, RADICAL, W/NERVE SPARE LAPAROSCOPIC PROSTATECTOMY, ROBOTICS ASSISTED (WRVU 21.36) Referral ID Status Reason Start Date Expiration Date Visits Re quested Visits Authorized [id number] 1 1 Encounter Details Date Type Department Care Team (Late st Contact Info) Description 12/07/2017 8:30 AM EDT - 12/07/2017 12:57 PM EDT Surgery [place] [address] Nabil Camargo MD [facility] [place] [address] ROBOTIC LAPAROSCOPIC PROSTATECTOMY (WRVU 22.46) Social History Tobacco Use Types Packs/Day Years [...] 36.5 ??C (97.7 ??F) 12/07/2017 12:56 PM E DT Respiratory Rate 14 12/07/2017 12:56 PM EDT [...] PROSTATECTOMY, ROBOTICS ASSISTED (WRVU 21.36) MODIFIER ROBOT,RIYA BROWNE HPI (from Dr. Camargo clinic note from 12/07/2017): Amanuel Hussein is a 62 y.o. 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 He was found to have an elevated PSA to 12 and underwent TRUS/PNBx on 08/06/2017 which found Sarah 4+4 prostate cancer as below: ?? DIAGNOSIS CONSULTATION CASE Outside slide(s) labeled [id number], collection date 08/06/2017. A - Prostate, base [...] core biopsy: Prostatic adenocarcinoma, Grade Group 3, Empire score 4+3, involving 95% of a single core (Empire pattern 4 represents 60% of tumor). Perineural invasion is present. I - Prostate, mid left lateral, needle core biopsy: Prostatic adenocarcinoma, Grade Group 3, Empire score 4+3, involving 90% of a single core (Empire pattern 4 represents 60% of tumor). Perineural [...] 4+3, involving 100% of a single core (Empire pattern 4 represents 70% of tumor). Perineural invasion is present. L - Prostate, apex left medial, needle core biopsy: Prostatic adenocarcinoma, Grade Group 3, Empire score 4+3, involving 100% of a single core (Empire pattern 4 represents 60% of tumor). Perineural [...] Hospital Course: Amanuel Hussein was [place] [facility] [place] 12[place]07[place]2017 through the Same Day Surgery [...] that part of your care. Urology Clinic: [phone] PCP: Clara Wood MD, . Please follow-up with your PCP in 1-2 weeks or sooner as needed. Issues to be followed-up with your PCP: 1. Scheduled Appointments: The following appointments have been scheduled on your behalf: Future Appointments and Orders Future Appointments Provider Department Dept Phone 12/17/2017 9:40 AM Nabil Camargo MD [facility] [place] [phone] 12/17/2017 10:20 AM Nabil Camargo MD [facility] [place] [phone] 12/17/2017 10:20 AM UROLOGY, NURSE [facility] [place] [phone] 03/15/2018 9:15 AM Al Ortiz MD [facility] [place] [phone] Outpatient Services/Studies: No discharge procedures on file. [...] 9:40 AM Nabil Camargo MD [facility] [place] [phone] 12/17/2017 10:20 AM Nabil Camargo MD [facility] [place] [phone] 12/17/2017 10:20 AM UROLOGY, NURSE [facility] [place] [phone] 03/15/2018 9:15 AM Al Ortiz MD [facility] [place] [phone] General Instructions None Call your doctor if: [...] managed by the Urologic Surgery Team at [facility]. If you have any questions or concerns, please feel free to contact us. Provider Contact Information: Urology Clinic: [phone] [facility] (after business hours): CC: Clara Wood MD [...] them as documented. Isidro Gutierrez III, MD incendiary powder mixer and Pediatrics [facility] Senior Staff Pediatric Urologist [facility] documented in this encounter Discharge [...] 9:40 AM Nabil Camargo MD [facility] [place] [phone] 12/17/2017 10:20 AM Nabil Camargo MD [facility] [place] [phone] 12/17/2017 10:20 AM UROLOGY, NURSE [facility] [place] [phone] 03/15/2018 9:15 AM Al Ortiz MD [facility] [place] [phone] documented in this encounter Progress Notes * Vale Ribeiro RN - 12/09/2017 2:55 PM EDT Patient Name: Amanuel Hussein Patient Age: 62 y.o. Birthdate: 1955 Admit date: 12/07/2017 Attending Physician: Nabil Camargo MD Patient watched wade catheter video and provided with wade care supplies. Reviewed discharge and allowed for questions. * Rebecca Avitia RN - 12/08/2017 4:26 PM EDT [place] [facility] [place]. Pt received from [facility] at 1615 to 210-B. Pt oriented to unit and call bell. [place]. at bedside. * Fabián Moore MD - [...] them as documented. Isidro Gutierrez III, MD incendiary powder mixer and Pediatrics [facility] Senior Staff Pediatric Urologist [facility] * Aditi Uribe RN - [...] Reji Feng - 12/07/2017 12:47 PM EDT [facility] Operative Note Patient Name: Amanuel Hussein : [id number] MR#: [id number] Case Date: 12/07/2017 Surgeon: Surgeon(s) and Role: [...] in a linear fashion. A 12 mm retail loan originator assistant port was also inserted, through which AirSeal insufflation was established. A 5 mm retail loan originator assistant port was inserted several cm superior to the LEFT iliac spine. The supraumbilical 8 mm port was exchanged for a 12 mm trocar with an 8 registered respiratory technician. Steep Trendelenberg position was achieved, the da [...] node metastasis was noted. The 12 mm retail loan originator assistant port was closed with a Sae-Thomasen [...] Operative Note Patient Name: Amanuel Hussein : [id number] MR#: [id number] Case Date: 12/07/2017 Surgeon: Surgeon(s) and Role: [...] EDT TH Visit (TeleHealth) Radiation Oncology at [address] [phone] PA [facility] [address] [place] [address] documented as of this encounter Procedures Procedure Name Priority Date/Time Associated Diagnosis Comments MOVERS SCAN 12/10/2017 12:00 AM EDT CREATININE LEVEL [...] 12/07/2017 8:35 AM EDT Prostate cancer MODIFIER ROBOT,DAVINCI XI 12/07/2017 8:35 AM EDT Prostate cancer ROBOTIC LAPAROSCOPIC PROSTATECTOMY (WRVU 22.46) 12/07/2017 8:35 AM EDT Prostate cancer ABORH RECHECK STATUS STAT 12/07/2017 6:53 AM EDT TYPE AND SCREEN, SDP (FUTURE SURGERY, [facility] SAME DAY PROGRAM ONLY) STAT 12/07/2017 6:53 AM EDT Pre-operative exam ABO/RH TYPING STAT 12/07/2017 6:53 AM EDT Pre-operative exam ANTIBODY SCREEN STAT 12/07/2017 6:53 AM EDT Pre-operative exam documented in this encounter Results * SCAN DOC: MOVERS (12/10/2017 12:00 AM EDT) Anatomical Region Laterality [...] clinical status. Creat, BF Type KRISSY Drain [facility] KRISSY Drain 12/09/2017 5:59 AM EDT 12/09/2017 6:07 AM EDT Narrative Resulting Agency Comment Spec In Lab Nabil Camargo MD BODY FLUIDS [place] [address] * Differential, Automated (12/09/2017 2:16 AM EDT) Neutrophils % 60.8 % [facility] Neutr Abs (ANC) 4.25 1.70 - 6.10 x10(3)/[facility] Lymphocytes % 28.4 % [facility] Lymphocytes Abs 2.0 0.9 - 3.2 x10(3)/[facility] Monocytes % 10.1 % [facility] Monocyte Abs 0.7 0.3 - 0.9 x10(3)/[facility] Eosinophils % 0.3 % [facility] Eosinophils Abs 0.0 0.0 - 0.4 x10(3)/[facility] Basophils % 0.3 % [facility] Basophils Abs 0.0 0.0 - 0.1 x10(3)/[facility] Immature Gran % 0.10 % [facility] Comment: Immature granulocytes(IG's)percentage and absolute count will include metamyelocytes, myelocytes, and promyelocytes. Blood smears from CBCs yielding IG's will be scanned manually for concordance. If this scan disagrees with the automated IG or if promyelocytes are noted, a manual differential will be performed. Malika Gran Abs 0.01 0.00 - 0.04 x10(3)/[facility] Blood specimen (specimen) 12/09/2017 2:16 AM EDT 12/09/2017 2:37 AM EDT Narrative Resulting Agency Comment Spec In Lab Reji Feng MD HEMATOLOGY ORDERABLE S Performing Organization Address City/[facility]/ZIP Co de Phone Number [facility] [place] [address] * (ABNORMAL) Hemogram (12/09/2017 2:16 AM EDT) Pathologist [facility] WBC 7.0 4.0 - 9.5 x10(3)/[facility] RBC 3.76(L) 4.58 - 5.54 x10(6)/[facility] Hemoglobin 12.6(L) 13.7 - 16.5 gm/dL [facility] Hematocrit 36.7(L) 40.5 - 48.5 % [facility] MCV 97.6(H) 82.9 - 93.1 fL [facility] MCH 33.5(H) 27.5 - 32.1 pg [facility] MCHC 34.3 32.0 - 35.7 gm/dL [facility] Platelets 179 145 - 357 x10(3)/[facility] RDWSD 42.9 36.0 - 45.0 [facility] RDWCV 11.9 11.4 - 13.8 % [facility] MPV 8.8 7.6 - 12.9 [facility] nRBC % Auto 0.0 % [facility] nRBC Abs Auto 0.000 0.000 - 0.000 x10(3)/[facility] Blood specimen (specimen) 12/09/2017 2:16 AM EDT 12/09/2017 2:37 AM EDT Narrative Resulting Agency Comment Spec In Lab Reji Feng MD HEMATOLOGY ORDERABLE S [facility] [place] [address] * (ABNORMAL) Basic Metabolic Panel (non-fasting) (12/09/2017 2:16 AM EDT) Pathologist [facility] Glucose Lvl 119 65 - 199 mg/dL [facility] Comment:Diabetes: >=200 mg/d L plus symptoms BUN 19 10 - 20 mg/dL [facility] Creatinine 0.98 0.80 - 1.50 mg/dL [facility] Sodium 142 135 - 145 mmol/L [facility] Potassium 4.2 3.5 - 5.0 mmol/L [facility] Comment: Please note: ??Patients with WBC >100,000 may have falsely elevated Potassium levels. ??For accurate Potassium quantification in these patients send serum separator tube (gold top) for subsequent determinations. ??Contact the Clinical Chemistry Laboratory if there are any questions. Chloride 108(H) 98 - 107 mmol/L [facility] CO2 25 22 - 31 mmol/L [facility] Anion Gap 9 5 - 15 mmol/L [facility] Calcium 8.0(L) 8.5 - 10.5 mg/dL [facility] Estimated GFR 82 >=60 mL/min/1. 73 m?? [facility] Comment: The eGFR was calculated using the CKD-EPI equation. As with all creatinine based estimates of kidney function, eGFR values calculated with the CKD-EPI equation are not accurate in patients with acute kidney failure, extremes of body mass or the acutely ill. [email or web address]/[email or web address] eGFR 95 >=60 mL/min/1. 73 m?? [facility] Comment: The eGFR was calculated using the CKD-EPI equation. As with all creatinine based estimates of kidney function, eGFR values calculated with the CKD-EPI equation are not accurate in patients with acute kidney failure, extremes of body mass or the acutely ill. [email or web address]/[email or web address] Blood specimen (specimen) 12/09/2017 2:16 AM EDT 12/09/2017 2:37 AM EDT Narrative Resulting Agency Comment Spec In Lab Nabil Camargo MD CHEMISTRY ORDERABL ES [facility] [place] [address] * (ABNORMAL) Differential, Automated (12/08/2017 4:22 AM EDT) Neutrophils % 82.4 % [facility] Neutr Abs (ANC) 6.18(H) 1.70 - 6.10 x10(3)/[facility] Lymphocytes % 8.5 % [facility] Lymphocytes Abs 0.6(L) 0.9 - 3.2 x10(3)/[facility] Monocytes % 8.8 % [facility] Monocyte Abs 0.7 0.3 - 0.9 x10(3)/[facility] Eosinophils % 0.0 % [facility] Eosinophils Abs 0.0 0.0 - 0.4 x10(3)/[facility] Basophils % 0.0 % [facility] Basophils Abs 0.0 0.0 - 0.1 x10(3)/[facility] Immature Gran % 0.30 % [facility] Comment: Immature granulocytes(IG's)percentage and absolute count will include metamyelocytes, myelocytes, and promyelocytes. Blood smears from CBCs yielding IG's will be scanned manually for concordance. If this scan disagrees with the automated IG or if promyelocytes are noted, a manual differential will be performed. Malika Gran Abs 0.02 0.00 - 0.04 x10(3)/[facility] Blood specimen (specimen) 12/08/2017 4:22 AM EDT 12/08/2017 4:41 AM EDT Narrative Resulting Agency Comment Spec In Lab Reji Feng MD HEMATOLOGY ORDERABLE S [facility] [place] [address] * (ABNORMAL) Hemogram (12/08/2017 4:22 AM EDT) WBC 7.5 4.0 - 9.5 x10(3)/[facility] RBC 3.77(L) 4.58 - 5.54 x10(6)/[facility] Hemoglobin 12.4(L) 13.7 - 16.5 gm/dL [facility] Hematocrit 35.8(L) 40.5 - 48.5 % [facility] MCV 95.0(H) 82.9 - 93.1 [facility] MCH 32.9(H) 27.5 - 32.1 pg [facility] MCHC 34.6 32.0 - 35.7 gm/dL [facility] Platelets 179 145 - 357 x10(3)/[facility] RDWSD 40.6 36.0 - 45.0 [facility] RDWCV 11.7 11.4 - 13.8 % [facility] MPV 8.7 7.6 - 12.9 [facility] nRBC % Auto 0.0 % [facility] nRBC Abs Auto 0.000 0.000 - 0.000 x10(3)/[facility] Blood specimen (specimen) 12/08/2017 4:22 AM EDT 12/08/2017 4:41 AM EDT Narrative Resulting Agency Comment Spec In Lab Reji Feng MD HEMATOLOGY ORDERABLE S [facility] [place] [address] * (ABNORMAL) Basic Metabolic Panel (non-fasting) (12/08/2017 4:22 AM EDT) Glucose Lvl 126 65 - 199 mg/dL [facility] Comment:Diabetes: >=200 mg/d L plus symptoms BUN 19 10 - 20 mg/dL [facility] Creatinine 1.09 0.80 - 1.50 mg/dL [facility] Sodium 138 135 - 145 mmol/L [facility] Potassium 4.3 3.5 - 5.0 mmol/L [facility] Comment: Please note: ??Patients with WBC >100,000 may have falsely elevated Potassium levels. ??For accurate Potassium quantification in these patients send serum separator tube (gold top) for subsequent determinations. ??Contact the Clinical Chemistry Laboratory if there are any questions. Chloride 104 98 - 107 mmol/L [facility] CO2 22 22 - 31 mmol/L [facility] Anion Gap 12 5 - 15 mmol/L [facility] Calcium 7.7(L) 8.5 - 10.5 mg/dL [facility] Estimated GFR 72 >=60 mL/min/1. 73 m?? [facility] Comment: The eGFR was calculated using the CKD-EPI equation. As with all creatinine based estimates of kidney function, eGFR values calculated with the CKD-EPI equation are not accurate in patients with acute kidney failure, extremes of body mass or the acutely ill. http://Sift/[email or web address] eGFR 83 >=60 mL/min/1. 73 m?? [facility] Comment: The eGFR was calculated using the CKD-EPI equation. As with all creatinine based estimates of kidney function, eGFR values calculated with the CKD-EPI equation are not accurate in patients with acute kidney failure, extremes of body mass or the acutely ill. [email or web address] Blood specimen (specimen) 12/08/2017 4:22 AM EDT 12/08/2017 4:41 AM EDT Narrative Resulting Agency Comment Spec In Lab Nabil Camargo MD CHEMISTRY ORDERABL ES [facility] [place] [address] * Specimen to Pathology (12/07/2017 11:43 AM EDT) AP Specimen 12/07/2017 11:4 3 AM EDT 12/07/2017 12:40 PM EDT Narrative [facility] - 12/07/2017 12:40 PM EDT Specimen requisition ordered. ??Separate Pathology report to follow Resulting Agency Comment Spec In Lab Nabil Camargo MD PATHOLOGY/CYTOLOGY ORDERABLES Performing Organization Address [facility] Co de Phone Number [facility] [place] [address] * Specimen to Pathology (12/07/2017 11:43 AM EDT) AP Specimen 12/07/2017 11:4 3 AM EDT 12/07/2017 12:40 PM EDT Narrative [facility] - 12/07/2017 12:40 PM EDT Specimen requisition ordered. ??Separate Pathology report to follow Resulting Agency Comment Spec In Lab Nabil Camargo MD PATHOLOGY/CYTOLOGY ORDERABLES Performing Organization Address [facility] [place] [address] * Surgical Pathology Report (12/07/2017 11:40 AM EDT) Pathologist [facility] Surgical Pathology Report [id number] ? Location: 2WST; 0210; B The signing [...] ?? Acinar adenocarcinoma ? Histologic Grade ?Primary Empire Pattern: ?? Pattern 3 ?Secondary Empire Pattern: ?? Pattern 4 ?Total Sarah Score: ?? 7 ?Grade Group: ??2 ?Percentage [...] Extraprostatic Extension (EPE): ? Not ? identified ?Empire Pattern at Positive Margin(s): ?Pattern 3 Lymph [...] Enrique Bain Verified: ??12/13/2017 ?Pathologist Performed at: ??-[facility] Dept. of Pathology, [place], [place] DISCUSSION In addition to the tumor [...] al. Mod Pathol 2013;26(suppl. 2),253A). Scanned slides: [id number] CLINICAL INFORMATION Specimen Submitted: A - [...] radical prostatectomy, oriented. DIMENSIONS/WEIGHT Weight: 39 grams. [place] to base: 4.4 cm. Transverse: 4.1 cm. [...] left vas deferns margins en face; (38) bottling equipment sales representative distal right seminal vesicle; ; (39) bottling equipment sales representative distal left seminal vesicle; (40) core biopsy, RA; (41) core biopsy RP, (42) core biopsy LA; (43) core biopsy LP. ??(R43) ?? [facility] 12/07/2017 11:4 0 AM EDT Nabil Camargo MD PATHOLOGY/CYTOLOGY ORDERABLES [facility] [place] [address] * ABORH Recheck Status (12/07/2017 6:53 AM EDT) ABORH Type Recheck Completed [facility] Blood specimen (specimen) 12/07/2017 6:53 AM EDT 12/07/2017 6:55 AM EDT Narrative Resulting Agency Comment Spec In Lab Nabil Camargo MD BLOOD BANK LAB ORD ERABLES Performing Organization Address City/[facility]/ZIP Co de Phone Number [facility] [place] [address] * Antibody screen (12/07/2017 6:53 AM EDT) Ab Screen Interp Negative [facility] Expires at [id number] on: 12/10/2017 [facility] Blood specimen (specimen) 12/07/2017 6:53 AM EDT 12/07/2017 6:55 AM EDT Narrative Resulting Agency Comment Spec In Lab Nabil Camargo MD BLOOD BANK LAB ORD ERABLES Performing Organization Address City/[facility]/ZIP Co de Phone Number [facility] [place] [address] * ABO/Rh Typing (12/07/2017 6:53 AM EDT) ABORH Type B Pos [facility] Blood specimen (specimen) 12/07/2017 6:53 AM EDT 12/07/2017 6:55 AM EDT Narrative Resulting Agency Comment Spec In Lab Nabil Camargo MD BLOOD BANK LAB ORD ERABLES Performing Organization Address City/[facility] Co de Phone Number [facility] [place] [address] documented in this encounter Visit Diagnoses Diagnosis [...] AM EDT 1,000 mg BUpivacaine (SENSORCAINE) 0.25 % (2.5 mg/mL) injection ONCE PRN, Starting on Sun12/07/17 at 1254, Until Sun12/09/17 at 1827, Intra-Operative (Intra-Procedure), Routine Given 12/07/2017 12:54 PM EDT 50 mg 19- Surgical Site ceFAZolin (ANCEF) 2g in dextrose 5% 100 mL 2 g, Intravenous, EVERY 8 HOURS, 2 doses, First dose (after last reorder) on Sun12/07/17 at 2000, Last dose on Sun12/08/17 at 0400, Administer over 30 Minutes, Indication for (Active or Suspected): Prophylaxis New Bag 12/08/2017 3:06 AM EDT 2 g 200 mL/hr New Bag 12/07/2017 8:14 PM EDT 2 [...] Routine 1709 (Not Given - Provider: Aditi Uribe RN - Reason: Transfer to a Procedural area)1800 (Given - Provider: Aditi Uribe RN)2359 (Given - Provider: Colver Greenwood) 0605 (Given - Provider: Clover Greenwood)1407 (Given - Provider: Celena Carter RN)1803 (Given - Provider: Rebecca Avitia RN) 0013 (Given - Provider: Susan Mcqueen RN)0554 (Given - Provider: Susan Mcqueen, ANA)1149 (Given - Provider: Vale Ribeiro RN) ceFAZolin (ANCEF) 2g in dextrose 5% 100 mL (COMPLETED) 2 g, Intravenous, ENGINEER FIRST ASSISTANT TO O.R., 1 dose, On Sun12/07/17 at 0745, Administer over 30 Minutes, Day of Surgery (Day of Procedure), Indication for (Active or Suspected): Prophylaxis 09 (Given - Provider: Chikis Farley)1213 (Given - [...] Clover Greenwood)2043 (Stopped - Provider: Clover Greenwood) 030 (New Bag - Provider: Clover Greenwood)0336 (Stopped - Provider: Clover Greenwood) docusate sodium (COLACE) capsule 100 mg 100 mg, Oral, 2 TIMES DAILY, First dose on Sun12/07/17 at 2100, Until Discontinued, Routine 2011 (Given - Provider: Clover Greenwood) 0848 (Given - Provider: Celena Carter, RN)203 (Given - Provider: Susan Mcqueen, ANA) 0811 (Given - Provider: Vale Ribeiro, ANA) gabapentin (NEURONTIN) capsule 600 mg (COMPLETED) 600 mg, Oral, ONCE, 1 dose, On Sun12/07/17 at 0745, Administer with SIP of H2O only., Day of Surgery (Day of Procedure), Routine 07 (Given - Provider: Ruthie Peters RN) heparin (Porcine) subcutaneous injection 5,000 Units (COMPLETED) 5,000 Units, Subcutaneous, 30 MIN PRE-OP, 1 dose, On Sun12/07/17 at 0745, Day of Surgery (Day of Procedure), Routine 744 (Given - Provider: Ruthie Peters RN) heparin (Porcine) subcutaneous injection 5,000 Units 5,000 Units, Subcutaneous, EVERY 8 HOURS SCHEDULED, First dose on Sun12/07/17 at 1730, Until Discontinued, Routine 1800 (Given - Provider: Aditi Uribe RN) 0306 (Given - Provider: Clover Greenwood)0909 (Given - Provider: Celena Carter, ANA)1803 (Given - Provider: Rebecca Avitia, ANA) 0554 [...] Provider: Clover Greenwood)1219 (Given - Provider: Celena Carter RN)1803 (Given - Provider: Rebecca Avitia, ANA) sodium chloride 0.9 % flush 5 mL 5 mL, Intravenous, 2 TIMES DAILY, First dose on Sun12/07/17 at 2100, Until Discontinued, Recovery (Recovery-Hospital Unit), Routine 2100 (Not Given - Provider: Clover Greenwood - Reason: See comment) 0804 (Given - Provider: Celena Carter, ANA)2034 (Given - Provider: Susan Mcqueen RN) 0811 (Given - Provider: Vale Ribeiro RN) Continuous Medication Order 12/07/2017 12/08/2017 12/09/2017 lactated [...] Unit) 1319 (New Bag - Provider: Amaya Renya RN) 0000 (New Bag - Provider: Clover Greenwood)1642 (New Bag - Provider: Rebecca Avitia, ANA) PRN Medication Order 12/07/2017 12/08/2017 12/09/2017 BUpivacaine (SENSORCAINE) 0.25 % (2.5 mg/mL) injection (CANCELED) ONCE PRN, Starting on Sun12/07/17 at 1254, Until 12/09/17 at 1827, Intra-Operative (Intra-Procedure), Routine 1254 (Given [...] Recovery, Routine 1332 (Given - Provider: Darling Cardoza RN) lidocaine (XYLOCAINE) 10 mg/mL (1 %) injection [...] PRN, Starting on Sun12/07/17 at 1313, Until 9/16/18 at 1827, Pain, severe pain (7-10), Initial dose 10mg. If pain control not adequate in 60 minutes, give additional 5mg, Routine documented in this encounter Care Teams Linux System Admin Relationship Specialty Start Date End Date Clara Wood MD [facility] [address] [place] [address] PCP - General Family Medicine 01/26/17 documented as of this encounter
--- OUTSIDE RECORDS SUMMARY | 2023-10-11 01:49 | XMS_ITS | Encounter Summary ---
Author Organization [facility] [place] [address] Care Team Providers Care Meat Grinder Name Role Phone Clara Wood MD Primary Care Provider [phone] Encounter Details Date Type Department Care Team (Late st Contact Info) Description 12/18/2017 Telephone Urology at [facility] [place] [address] Nabil Camargo MD [facility] [place] [address] Social History Tobacco Use Types Packs/Day Years [...] * Telephone Encounter - Estelle Palmer - 12/18/2017 12:15 PM EDT LM for pt to schedule 3M fuv w/ with a PSA prior (Feb 2018) documented in this encounter Plan of Treatment Upcoming Encounters Date Type Department Care Team (Late st Contact Info) Description 01/08/2024 1:45 PM EDT TH Visit (TeleHealth) Radiation Oncology at [address] [address] Zahira Jaffe PA [facility] HEMATOLOGY [place] [address] documented as of this encounter Visit Diagnoses Not on filedocumented in this encounter Care Teams Meat Grinder Relationship Specialty Start Date End Date Clara Wood MD [facility] [address] [facility] [address] [place] [address] PCP - General Family Medicine 01/26/17 documented as of this encounter
--- OUTSIDE RECORDS SUMMARY | 2023-10-11 01:49 | XMS_ITS | Encounter Summary ---
Author Organization [facility] [place] [address] Care Team Providers Care Armature Winder Repairer Name Role Phone Clara Wood MD Primary Care Provider [phone] Encounter Details Date Type Department Care Team (Late st Contact Info) Description 02/25/2018 10:20 AM EST Office [place] [address] Nabil Camargo MD [facility] [place] [address] Prostate cancer Social History Tobacco Use Types [...] Progress Notes * Nabil Camargo MD - 02/25/2018 10:20 AM [...] TH Visit (TeleHealth) Radiation Oncology at [address] [address] Zahira Jaffe PA [facility] DR [place] [address] documented as of this encounter Results * PSA (05/30/2018 1:24 PM EST) PSA Total (Ultrasensitiv e) <0.01 0.00 - 4.00 ng/mL [facility] Blood specimen (specimen) 05/30/2018 1:24 PM EST 05/30/2018 1:34 PM EST Narrative Resulting Agency Comment Spec In Lab Nabil Camargo MD CHEMISTRY ORDERABL ES [facility] [place] [address] documented in this encounter Visit Diagnoses Diagnosis Prostate cancer Malignant neoplasm of prostate documented in this encounter Care Teams Armature Winder Repairer Relationship Specialty Start Date End Date Clara Wood MD [facility] [address] [place] [address] PCP - General Family Medicine 01/26/17 documented as of this encounter
--- OUTSIDE RECORDS SUMMARY | 2023-10-11 01:49 | XMS_ITS | Encounter Summary ---
[place] [address] Care Team Providers Care Employment Adjudicator Name Role Phone Clara Wood MD Primary Care Provider [phone] Reason for Visit * Reason Onset Date Comments Other 04/29/2018 PPI rx Encounter Details Date Type Department Care Team (Late st Contact Info) Description 04/29/2018 Telephone [place] [address] Ashley Wright RN Other (PPI rx) Social History Tobacco Use Types Packs/Day Years [...] encounter Miscellaneous Notes * Addendum Note - Ashley Wright RN - 04/29/2018 2:40 PM ESTAddended by: ASHLEY WRIGHT on: 04/29/2018 02:40 PM Modules accepted: Orders * Telephone Encounter - Ashley Wright RN - [...] called to his local [facility] ( requesting 30 days and 1 refill -will then request rx to his mail-away pharmacy [place] ). Has taken protonix ( pantoprazole )40 mg daily and then progressed to BID ,last taken about 1 year ago. Page out to 0030 Return call from Ashley CEDILLO ,ok for protonix 40 mg tabs daily #30 and 1 refill . Call to pt home ,voice message left regarding this . Script called to local pharmacy . documented in this encounter Plan of Treatment Upcoming Encounters Date Type Department Care Team (Late st Contact Info) Description 01/08/2024 1:45 PM EDT TH Visit (TeleHealth) Radiation Oncology at [address] [address] Zahira Jaffe PA [facility] DR [place] [address] documented as of this encounter Visit Diagnoses Not on filedocumented in this encounter Care Teams Employment Adjudicator Relationship Specialty Start Date End Date Clara Wood MD [address] [place] [address] PCP - General Family Medicine 01/26/17 documented as of this encounter
--- OUTSIDE RECORDS SUMMARY | 2023-10-11 01:49 | XMS_ITS | Encounter Summary ---
Author Organization [facility] [place] [address] Care Team Providers Care Grab Setter Name Role Phone Clara Wood MD Primary Care Provider [phone] Encounter Details Date Type Department Care Team (Latest Contact Info) Description 08/06/2017 - 08/06/2017 11:59 PM EDT Hospital Encounter [place] [address] Wesley Holder MD [facility] [place] [address] Discharge Disposition: Home Social History Tobacco Use [...] EDT TH Visit (TeleHealth) Radiation Oncology at [address] [address] Zahira Jaffe PA [facility] HEMATOLOGY [place] [address] documented as of this encounter Procedures Procedure Name Priority Date/Time Associated Diagnosis Comments FILM LIBRARY STORAGE ONLY ULTRASOUND STUDY Routine 08/06/2017 12:00 AM EDT documented in this encounter Results * Film Library- Storage Only Ultrasound Study (08/06/2017 12:00 AM EDT) Narrative [facility] - 10/09/2017 12:54 PM EDT This exam is for storage only and is auto-finalizing. Wesley Holder MD IMG FILM LIBRARY O RDERABLES Performing Organization Address City/State/[facility] Co de Phone Number [place], [place] documented in this encounter Visit Diagnoses Not on filedocumented in this encounter Care Teams Grab Setter Relationship Specialty Start Date End Date Clara Wood MD [address] [place] [address] PCP - General Family Medicine 01/26/17 documented as of this encounter
--- OUTSIDE RECORDS SUMMARY | 2023-10-11 01:49 | XMS_ITS | Encounter Summary ---
Author Organization [facility] [place] [address] Care Team Providers Care Trimming Machine Operator Name Role Phone Clara Wood MD Primary Care Provider [phone] Encounter Details Date Type Department Care Team (Late st Contact Info) Description 09/24/2018 10:00 AM EDT [place] [address] Nabil Camargo MD [facility] [place] [address] Malignant neoplasm of prostate Social History Tobacco [...] Progress Notes * Nabil Camargo MD - 09/24/2018 10:00 AM [...] 2, Margin + limited (<3mm) anterior apex. Pemberton 3 at margin. Overall, he is doing [...] file Gets together: Not on file Attends nondenominational service: Not on file Active member of [...] Group 2, Margin limited (<3mm) anterior apex. [place] 3 at margin s/p L>R NS RALP [...] TH Visit (TeleHealth) Radiation Oncology at [address] [address] Zahira Jaffe PA [facility] DR [place] [address] documented as of this encounter Results * PSA (12/10/2018 9:37 AM EDT) PSA Total (Ultrasensitiv e) 0.02 0.00 - 4.00 ng/mL [facility] Blood specimen (specimen) 12/10/2018 9:37 AM EDT 12/10/2018 9:55 AM EDT Narrative Resulting Agency Comment Spec In Lab Nabil Camargo MD CHEMISTRY ORDERABL ES [facility] [place] [address] documented in this encounter Visit Diagnoses Diagnosis Malignant neoplasm of prostate documented in this encounter Care Teams Trimming Machine Operator Relationship Specialty Start Date End Date Clara Wood MD [address] [place] [address] PCP - General Family Medicine 01/26/17 documented as of this encounter
--- OUTSIDE RECORDS SUMMARY | 2023-10-11 01:49 | XMS_ITS | Encounter Summary ---
[place] [address] Care Team Providers Care Manager Field Services Name Role Phone Clara Wood MD Primary Care Provider [phone] Reason for Visit * Reason Onset Date Comments Medication Refill 05/21/2018 Encounter Details Date Type Department Care Team (Late st Contact Info) Description 05/21/2018 Telephone [place] [phone] Yoils Montelongo, rhia Refill Social History Tobacco Use Types Packs/Day Years [...] encounter Miscellaneous Notes * Telephone Encounter - Yolis Montelongo, RN - 05/21/2018 10:08 AM EST TC [...] TH Visit (TeleHealth) Radiation Oncology at [address] [address] Zahira Jaffe V., PA [facility] [address] [place] [address] documented as of this encounter Visit Diagnoses Not on filedocumented in this encounter Care Teams Manager Field Services Relationship Specialty Start Date End Date Clara Wood MD [address] [place] [address] PCP - General Family Medicine 01/26/17 documented as of this encounter
--- OUTSIDE RECORDS SUMMARY | 2023-10-11 01:49 | XMS_ITS | Encounter Summary ---
Author Organization [facility] [place] [address] Care Team Providers Care Press Room Supervisor Name Role Phone Clara Wood MD Primary Care Provider [phone] Encounter Details Date Type Department Care Team (Latest Contact Info) Description 09/04/2017 - 09/04/2017 12:04 AM EDT Hospital Encounter [place] [address] Wesley Holder MD [facility] [place] [address] Discharge Disposition: Home Social History Tobacco Use [...] EDT TH Visit (TeleHealth) Radiation Oncology at [address] [address] Zahira Jaffe PA [facility] HEMATOLOGY [place] [address] documented as of this encounter Procedures Procedure Name Priority Date/Time Associated Diagnosis Comments FILM LIBRARY STORAGE ONLY ULTRASOUND STUDY Routine 09/04/2017 12:00 AM EDT documented in this encounter Results * Film Library- Storage Only Ultrasound Study (09/04/2017 12:00 AM EDT) Narrative [facility] - 10/09/2017 12:55 PM EDT This exam is for storage only and is auto-finalizing. Wesley Holder MD IMG FILM LIBRARY O RDERABLES Performing Organization Address City/State/[facility] Co de Phone Number [place], [place] documented in this encounter Visit Diagnoses Not on filedocumented in this encounter Care Teams Press Room Supervisor Relationship Specialty Start Date End Date Clara Wood MD [address] [place] [address] PCP - General Family Medicine 01/26/17 documented as of this encounter
--- OUTSIDE RECORDS SUMMARY | 2023-10-11 01:49 | XMS_ITS | Encounter Summary ---
Author Organization [facility] [place] [address] Care Team Providers Care Wrap Yarn Sorter Name Role Phone Clara Wood MD Primary Care Provider [phone] Encounter Details Date Type Department Care Team (Latest Contact Info) Description 03/16/2017 7:36 AM EST - 03/16/2017 11:59 PM EST Hospital Encounter XRay at [address] [place] [address] Paraesophageal hiatal hernia Discharge Disposition: Home Social History Tobacco Use [...] TH Visit (TeleHealth) Radiation Oncology at [address] [address] Zahira Jaffe PA [facility] [place] [address] documented as of this encounter Procedures Procedure Name Priority Date/Time Associated Diagnosis Comments XR CHEST PA AND LATERAL Routine 03/16/2017 7:46 AM EST Paraesophageal hiatal hernia documented in this encounter Results * XR Chest PA & Lateral (Generic) (03/16/2017 7:46 AM EST) Anatomical Region Laterality Modality Chest N/A Digital Radiogra phy Impressions 03/16/2017 8:45 AM EST No significant abnormality. I have personally reviewed the image(s) and the residents interpretation and agree with the findings, Roc Alfaro at 03/16/2017 8:45 AM Narrative 03/16/2017 8:45 AM EST EXAMINATION: XR CHEST PA AND LATERAL (GENERIC) CLINICAL HISTORY: s/p robotic-assisted lap paraesophageal hernia repair with partial anterior fundoplication (02/28), please eval hernia recurrence TECHNIQUE: PA standing and lateral chest radiograph COMPARISON: Chest radiograph 02/28/2017 and 11/28/2016 FINDINGS: The lungs are clear with normal pulmonary vascular markings. No pneumothorax or pleural effusions. Unchanged cardiomediastinal silhouette. No air-fluid level or lucency over the central epigastric region to suggest hiatal hernia. Procedure Note Roc Alfaro MD - 03/16/2017 EXAMINATION: XR CHEST PA AND LATERAL (GENERIC) CLINICAL HISTORY: s/p robotic-assisted lap paraesophageal hernia repairwith partial anterior fundoplication (02/28), please eval hernia recurrence TECHNIQUE: PA standing and lateral chest radiograph COMPARISON: Chest radiograph 02/28/2017 and 11/28/2016 FINDINGS: The lungs are clear with normal pulmonary vascular markings. No pneumothorax or pleural effusions. Unchanged cardiomediastinal silhouette. No air-fluid level or lucency over the central epigastric region tosuggest hiatal hernia. IMPRESSION No significant abnormality. I have personally reviewed the image(s) and the residents interpretationand agree with the findings, Roc Alfaro at 03/16/2017 8:45 AM Al Ortiz MD IMG DX ORDERABLES documented in this encounter Visit Diagnoses Diagnosis Paraesophageal hiatal hernia Diaphragmatic hernia without mention of obstruction or gangrene documented in this encounter Care Teams Wrap Yarn Sorter Relationship Specialty Start Date End Date Clara Wood MD [address] [facility] 1 [place] [address] PCP - General Family Medicine 01/26/17 documented as of this encounter
--- OUTSIDE RECORDS SUMMARY | 2023-10-11 01:49 | XMS_ITS | Encounter Summary ---
Author Organization [facility] [address] Care Team Providers Care Assembler Camper Name Role Phone Clara Wood MD Primary Care Provider [phone] Encounter Details Date Type Department Care Team (Latest Contact Info) Description 10/15/2017 8:44 AM EDT - 10/15/2017 11:59 PM EDT Hospital [place] [address] Discharge Disposition: Home Social History Tobacco Use [...] EDT TH Visit (TeleHealth) Radiation Oncology at [address] [address] Zahira Jaffe PA [facility] DR HEMATOLOGY [place] [address] documented as of this encounter Procedures Procedure Name Priority Date/Time Associated Diagnosis Comments SURGICAL PATHOLOGY REPORT Routine 10/15/2017 9:02 AM EDT documented in this encounter Results * Surgical Pathology Report (10/15/2017 9:02 AM EDT) Surgical Pathology Report [id number] ? Location: OPW The signing pathologist has (i) examined the relevant preparation(s) for the specimen(s) and (ii) rendered or confirmed the diagnosis(es). . ?Surgical Pathology DIAGNOSIS CONSULTATION CASE Outside slide(s) labeled [id number], collection date 08/06/2017. A - Prostate, base [...] core biopsy: Prostatic adenocarcinoma, Grade Group 3, Kirkland score 4+3, involving 70% of fragmented core (Kirkland pattern 4 represents 60% of tumor). Perineural invasion is present. Suspicious for extraprostatic extension. H - Prostate, base left medial, needle core biopsy: Prostatic adenocarcinoma, Grade Group 3, Sarah score 4+3, involving 95% of a single core (Kirkland pattern 4 represents 60% of tumor). Perineural invasion is present. I - Prostate, mid left lateral, needle core biopsy: Prostatic adenocarcinoma, Grade Group 3, Sarah score 4+3, involving 90% of a single core (Sarah pattern 4 represents 60% of tumor). Perineural invasion is present. J - Prostate, mid left medial, needle core biopsy: Prostatic adenocarcinoma, Grade Group 3, Kirkland score 4+3, involving 60% of a single core (Kirkland pattern 4 represents 70% of tumor). Perineural invasion is present. K - Prostate, apex left lateral, needle core biopsy: Prostatic adenocarcinoma, Grade Group 3, Kirkland score 4+3, involving 100% of a single core (Sarah pattern 4 represents 70% of tumor). Perineural invasion is present. L - Prostate, apex left medial, needle core biopsy: Prostatic adenocarcinoma, Grade Group 3, Sarah score 4+3, involving 100% of a single core (Kirkland pattern 4 represents 60% of tumor). Perineural invasion is present. Electronically signed by: ??Louisa Gee MD Verified: ??10/15/2017 ?Pathologist Performed at: ??-[facility] Dept. of Pathology, [place], [place] . ADDITIONAL STUDIES [id number] A selected slides CLINICAL INFORMATION CONSULTATION CASE A - 25 slide(s) labeled [id number], collection date 08/06/2017. [id number] Report to: [facility] Surgical Pathology Department [facility], [facility], 2nd Floor [address], [place] ??[address] SPECIMEN PROCESSING [facility] ([facility]) pathology slide(s) are reviewed. ??Refer to Diagnosis and Specimen Submitted for specific case information. For the full text of the [facility] report(s) please refer to Non- Documentation Pathology in the electronic health record (eDH). [facility] 10/15/2017 9:02 AM EDT Nabil Camargo MD PATHOLOGY/CYTOLOGY ORDERABLES Performing Organization Address City/State/[facility] Co de Phone Number [facility] [place] [address] documented in this encounter Visit Diagnoses Not on filedocumented in this encounter Care Teams Assembler Camper Relationship Specialty Start Date End Date Clara Wood MD [address] [place] [address] PCP - General Family Medicine 01/26/17 documented as of this encounter
--- OUTSIDE RECORDS SUMMARY | 2023-10-11 01:49 | XMS_ITS | Encounter Summary ---
Author Organization [facility] [place] [address] Care Team Providers Care Veneer Clipper Name Role Phone Clara Wood MD Primary Care Provider [phone] Encounter Details Date Type Department Care Team (Latest Contact Info) Description 05/30/2018 2:00 PM EST Laboratory Appointment Lab [address] [place] [address] Prostate cancer Social History Tobacco Use Types [...] EDT TH Visit (TeleHealth) Radiation Oncology at [address] [phone] Zahira Jaffe PA [facility] DR HEMATOLOGY [place] [address] documented as of this encounter Procedures Procedure Name Priority Date/Time Associated Diagnosis Comments PSA (ULTRASENSITIVE) STAT 05/30/2018 1:24 PM EST Prostate cancer documented in this encounter Results * PSA (05/30/2018 1:24 PM EST) PSA Total (Ultrasensitiv e) <0.01 0.00 - 4.00 ng/mL [facility] Blood specimen (specimen) 05/30/2018 1:24 PM EST 05/30/2018 1:34 PM EST Narrative Resulting Agency Comment Spec In Lab Nabil Camargo MD CHEMISTRY ORDERABL ES [facility] [place] [address] documented in this encounter Visit Diagnoses Diagnosis Prostate cancer Malignant neoplasm of prostate documented in this encounter Care Teams Veneer Clipper Relationship Specialty Start Date End Date Clara Wood MD [address] [place] [address] PCP - General Family Medicine 01/26/17 documented as of this encounter
--- OUTSIDE RECORDS SUMMARY | 2023-10-11 01:49 | XMS_ITS | Encounter Summary ---
Author Organization [facility] [place] [address] Care Team Providers Care Reverse Engineer Name Role Phone Clara Wood MD Primary Care Provider [phone] Encounter Details Date Type Department Care Team (Late st Contact Info) Description 12/17/2017 10:20 AM EDT Clinical [place] [address] Prostate cancer Social History Tobacco Use Types [...] as of this encounter Progress Notes * Estelle Wilcox RN - 12/17/2017 10:20 AM EDT Patient presents today for a voiding trial and catheter removal s/p prostatectomy . The patient wasgiven Ciprofloxacin 500mg 1 by mouth. All incisions [...] was told to call if he notices weakeningstream, difficulty voiding, or a feeling of bladder pressure. Patient verbalized understanding. Estelle Wilcox, RN documented in this encounter Plan of Treatment Upcoming Encounters Date Type Department Care Team (Late st Contact Info) Description 01/08/2024 1:45 PM EDT TH Visit (TeleHealth) Radiation Oncology at [address] [address] Zahira Jaffe PA [facility] [address] [place] [address] documented as of this encounter Visit Diagnoses Diagnosis Prostate cancer Malignant neoplasm of prostate documented in this encounter Care Teams Reverse Engineer Relationship Specialty Start Date End Date Clara Wood MD [address] [place] [address] PCP - General Family Medicine 01/26/17 documented as of this encounter
--- OUTSIDE RECORDS SUMMARY | 2023-10-11 01:49 | XMS_ITS | Encounter Summary ---
Author Organization [facility] Address [facility] [place] [address] Care Team Providers Care Machine Heel Sprayer Name Role Phone Clara Wood MD Primary Care Provider [phone] Reason for Visit * Reason Comments Follow Up Surgery Encounter Details Date Type Department Care Team (Latest Contact Info) Description 03/15/2018 9:15 AM EST Office [place] [address] Al Ortiz MD [facility] [place] [address] S/P repair of paraesophageal hernia Social History Tobacco Use Types Packs/Day Years [...] 36.9 ??C (98.4 ??F) 03/15/2018 8:56 AM ES T Respiratory Rate 18 03/15/2018 8:56 AM EST Oxygen Saturation 98% 03/15/2018 8:56 AM EST Inhaled Oxygen Concentration - - Weight 90.7 kg (200 lb) 03/15/2018 8:56 AM EST Height 175 cm (5' 8.9) 03/15/2018 8:56 AM EST Body Mass Index 29.62 03/15/2018 8:56 AM EST documented in this encounter Patient Instructions * Patient Instructions* Ashley Wright RN - 03/15/2018 9:15 AM EST [...] concerns. documented in this encounter Progress Notes * Al Ortiz MD - 03/15/2018 9:15 AM EST Thoracic Surgery Attending Outpatient Consultation Note Al Ortiz MD [place] [id number] ?? Today, 03/15/2018, I saw Mr.??Amanuel??Jovita??in follow-up from his??robotic paraesophageal hernia repair on 02/28/17. He was last seen 09/14/2017 and at that time was doing well. He??was discharged after an uneventful postoperative course. ??Today, he??is breathing comfortably and denies fevers.He is eating a regular diet with no difficulty. He has no symptoms of reflux or regurgitation. He has undergone a prostatectomy for prostate cancer and is doing well. He notes weight loss around the time of his prostatectomy, but has gained some of this back. He otherwise has no complaints. He denies dysphagia, melena, hematemesis. ?? Eckardt Scoring ?Weight loss (kg)? Dysphagia?Retrosternal pain?Regurgitation 0 ?None?None ?None ?None 1 ?<??5 ?Occassional?Occassional ?Occassiona l 2 ?5-10 ?Daily?Daily ?Daily 3 ?>??10?Each meal ?Each meal ?Each meal ?? Total Score = ??0 ?? On physical examination today, his??BP 132/83 (Patient Position: Sitting) Pulse 66 Temp 36.9 ??C (98.4 ??F) (Temporal) Resp 18 Ht 175 cm (5' 8.9) Wt 90.7 kg (200 lb) SpO2 98% BMI 29.62kg/m?? .??In general, he??is in no acute distress. ??His??pupils are reactive. ??His??lungs are clear to auscultation bilaterally. ??His??heart has a regular rate with no murmurs. ??His??incisions are healed with no evidence of hernia. ??His??abdomen is soft and nontender. ??His??extremities are warm with no edema. ??Neurologically, he??is grossly intact. ? Today's chest X-ray, which I have personally reviewed, shows no acute cardiopulmonary process and no obvious recurrent hiatal hernia. ?? In summary, ??Amanuel??Jovita??has made an excellent recovery from his??robotic paraesophageal hernia repair with Jacek fundoplication for [...] TH Visit (TeleHealth) Radiation Oncology at [address] [address] Zahira Jaffe PA [facility] [address] [place] [address] documented as of this encounter Visit Diagnoses Diagnosis S/P repair of paraesophageal hernia Other postprocedural status documented in this encounter Care Teams Machine Heel Sprayer Relationship Specialty Start Date End Date lCara Wood MD [facility] [address] [place] [address] PCP - General Family Medicine 01/26/17 documented as of this encounter
--- OUTSIDE RECORDS SUMMARY | 2023-10-11 01:49 | XMS_ITS | Encounter Summary ---
Author Organization [facility] Address [facility] [place] [address] Care Team Providers Care Scouring Train Operator Chief Name Role Phone Clara Wood MD Primary Care Provider Encounter Details Date Type Department Care Team (Late st Contact Info) Description 04/23/2018 7:22 AM EST - 04/23/2018 11:03 AM EST Hospital Encounter [place] [address] Kaiser Doyle MD [facility] [place] [address] Discharge Disposition: Home Social History Tobacco Use [...] 36.9 ??C (98.4 ??F) 04/23/2018 7:39 AM ES T Respiratory Rate 18 04/23/2018 10:30 AM EST Oxygen Saturation 97% 04/23/2018 10:40 AM EST Inhaled Oxygen Concentration - - Weight 88.5 kg (195 lb) 04/23/2018 7:39 AM EST Height 175.3 cm (5' 9) 04/23/2018 7:39 AM EST Body Mass Index 28.8 04/23/2018 7:39 AM EST documented in this encounter Discharge Instructions * Discharge Instructions* Mario Mcintosh, RN - 04/23/2018 9:58 AM EST UPPER [...] better as expected. Sunday-Sunday Same Day Endo [phone]-[phone] Otherwise contact [phone] and ask to speak to the attendance officer stone setter Follow-up care is a johnson part of your treatment and safety. Be sure to make and go to all appointments, and call your doctor if you are having problems. Instructions have been reviewed and patient expresses understanding documented in this encounter Medications at Time of Discharge Medication Sig Dispensed Refills Start Date End Date acetaminophen (TYLENOL) 325 mg Tablet Take 650 mg by mouth every 4 hours as needed for Pain. 07/20/2022 documented as of this encounter H&P Notes * Kaiser Doyle MD - 04/23/2018 9:24 AM [...] TH Visit (TeleHealth) Radiation Oncology at [address] [address] Zahira Jaffe PA [facility] DR HEMATOLOGY [place] [address] documented as of this encounter Procedures Procedure Name Priority Date/Time Associated Diagnosis Comments SPECIMEN TO PATHOLOGY Routine 04/23/2018 9:52 AM EST SURGICAL PATHOLOGY REPORT Routine 04/23/2018 9:42 AM EST UPPER GASTROINTESTINAL ENDOSCOPY,WITH BIOPSY SINGLE OR MULTIPLE (WRVU 2.39) 04/23/2018 9:30 AM EST Patient with history of severe reflux needs EGD in 1 year (Late 2017 or early 2018) to screen for Latif's. EGD, UPPER GI ENDOSCOPY (WRVU 2.09) 04/23/2018 9:30 AM EST Patient with history of severe reflux needs EGD in 1 year (Late 2018 or early 2018) to screen for Latif's. UPPER GI ENDOSCOPY Routine 04/23/2018 9: 18 AM EST documented in this encounter Results * Specimen to Pathology (04/23/2018 9:52 AM EST) AP Specimen 04/23/2018 9:52 AM EST 04/23/2018 10:55 AM EST Narrative [facility] - 04/23/2018 10:55 AM EST Specimen requisition ordered. ??Separate Pathology report to follow Resulting Agency Comment Spec In Lab Kaiser Doyle MD PATHOLOGY/CYTOLOG Y ORDERABLES [facility] [place] [address] * Surgical Pathology Report (04/23/2018 9:42 AM EST) Pathologist [facility] [place] Surgical Pathology Report [id number] ? Location: 4T; EA11; A The signing pathologist has (i) examined the relevant preparation(s) for the specimen(s) and (ii) rendered or confirmed the diagnosis(es). . ?Surgical Pathology DIAGNOSIS GE junction, ??biopsy: Squamous esophageal and cardiac mucosa with chronic nonspecific gastritis. No goblet cell metaplasia is seen. Electronically signed by: ??Luan Singleton MD Verified: ??04/25/2018 ?Pathologist Performed at: ??-[facility] [place] Dept. of Pathology, [place], [place] CLINICAL INFORMATION Specimen Submitted: A - Ge junction 40 Clinical History and Diagnosis: Esophagitis, GERD, screening Latif's SPECIMEN PROCESSING A - Labeled/Fixativ e: GE junction BX, formalin. Quantity/Size: Five, averaging 0.2 cm. Tissue Description: Soft, white tissues. Sections/Proces sing: Submitted en toto ??in 1 cassette labeled A1. ??dolores [facility] 04/23/2018 9:42 AM EST Kaiser Doyle MD PATHOLOGY/CYTOLOG Y ORDERABLES [facility] [place] [address] * UPPER GI ENDOSCOPY (04/23/2018 9:18 AM EST) Pathologist [facility] [place] UPPER GI ENDOSCOPY [facility] Endoscopy Procedure Date: 04/23/2018 9:18 AM ? Patient Name: Amanuel Hussein ? Date of : 1955 ? Age: 63 ? Order #: [id number] ? Instrument Name: [id number] ? Procedure: ? Upper GI endoscopy Indications: ? Screening for Latif's esophagus, ? Follow-up of reflux esophagitis Patient Profile: ? This is a 63 year old male. Providers: ? Kaiser Doyle MD, Britany Collazo, ? ANA, Mario Saldana MD: ?Clara Wood MD, Al Ortiz Medicines: ? Midazolam 4 mg IV, Fentanyl 200 ? micrograms IV Complications: ? No immediate complications. Procedure: ? Pre-Anesthesia Assessment: ? - Prior to the procedure, a History ? and Physical was performed, and ? patient medications and allergies ? were reviewed. The patient's ? tolerance of previous anesthesia was ? also reviewed. The risks and benefits ? of the procedure and the sedation ? options and risks were discussed with ? the patient. All questions were ? answered, and informed consent was ? obtained. Prior Anticoagulants: The ? patient has taken no previous ? anticoagulant or antiplatelet agents. ? ASA Grade Assessment: II - A patient ? with mild systemic disease. After ? reviewing the risks and benefits, the ? patient was deemed in satisfactory ? condition to undergo the procedure. ? The procedure, indications, benefits, ? risks and alternatives were explained ? to the patient. Specifically ? discussed were potential ? complications including, but not ? limited to, bleeding, perforation, ? infection, missing a cancer, and ? adverse medication reactions. The ? Endoscope was introduced through the ? mouth, and advanced to the third part ? of duodenum. The patient tolerated ? the procedure well. The upper GI ? endoscopy was accomplished without ? difficulty. The patient tolerated the ? procedure well. ? Findings: ? [...] incisors. ? - LA Grade C reflux esophagitis. ? Biopsied. ? - A 270 degree fundoplication was ? found. The wrap appears loose. ? - Normal examined duodenum. Recommendation: ?- Await pathology results. ? - Start Daily PPI therapy. ? Attending Participation: ? I personally performed the entire procedure. ? Dr. [place] Doyle ___ Kaiser Doyle MD 04/23/2018 10:19:53 AM Number of Addenda: 0 Note Initiated On: 04/23/2018 9:18 AM PROVATION 04/23/2018 9:18 AM EST Clara Wood MD GENERAL SURGICAL ORD [facility] PROVATION documented in this encounter Visit Diagnoses Not on filedocumented in this encounter Administered Medications Inactive Administered Medications - up to 3 most recent administrations Medication Order MAR Action Action Date Dose Rate Site lactated Ringers infusion 100 mL/hr, Intravenous, CONTINUOUS, Starting on Sun04/23/18 at 0800, Until Sun04/23/18 at 1303, Endoscopy (Day of Procedure) New Bag 04/23/2018 8:00 AM EST 100 mL/hr 100 mL/hr documented in this encounter Active and Recently Administered Medications Times are shown in EST. Continuous Medication Order 04/21/2018 04/22/2018 04/23/2018 lactated Ringers infusion 100 mL/hr, Intravenous, CONTINUOUS, Starting on Sun04/23/18 at 0800, Until Sun04/23/18 at 1303, Endoscopy (Day of Procedure) 0800 (New Bag - Prov ider: Torrie Douglas, ANA) PRN Medication Order 04/21/2018 04/22/2018 04/23/2018 fentaNYL 50 mcg/mL multi-dose injection (CANCELED) ONCE PRN, Starting on Sun04/23/18 at 0933, Until Sun04/23/18 at 1303, Intra-Operative (Intra-Procedure), Routine 0933 (Given - Provid er: Britany Collazo RN)0936 (Given - Provider: Britany Collazo RN)0939 (Given - Provider: Britany Collazo RN)0942 (Given - Provider: Britany Collazo RN) midazolam (PF) (VERSED) multi-dose injection (CANCELED) ONCE PRN, Starting on Sun04/23/18 at 0933, Until Sun04/23/18 at 1303, Intra-Operative (Intra-Procedure), Routine 0933 (Given - Provid er: Britany Collazo RN)0935 (Given - Provider: Britany Collazo RN)0939 (Given - Provider: Britany Collazo RN)0942 (Given - Provider: Britany Collazo RN) documented in this encounter Care Teams Scouring Train Operator Chief Relationship Specialty Start Date End Date Clara Wood MD [address] [place] [address] PCP - General Family Medicine 01/26/17 documented as of this encounter
--- OUTSIDE RECORDS SUMMARY | 2023-10-11 01:49 | XMS_ITS | Encounter Summary ---
Author Organization [facility] [place] [address] Care Team Providers Care Siding Applicator Name Role Phone Clara Wood MD Primary Care Provider [phone] Reason for Visit * Auth/Cert Specialty Diagnoses / Procedures Referred By Lobo dean Referred To Contact Diagnoses Prostate Cancer Procedures PRO LAP, PROSTATECTOMY, RADICAL, W/NERVE SPARE LAPAROSCOPIC PROSTATECTOMY, ROBOTICS ASSISTED (WRVU 21.36) Referral ID Status Reason Start Date Expiration Date Visits Re quested Visits Authorized [id number] 1 1 Encounter Details Date Type Department Care Team (Late st Contact Info) Description 12/07/2017 8:36 AM EDT Anesthesia Event [place] [address] Maria E Holder MD [facility] [place] [address] Anesthesia Record Procedure Summary Procedure Name Responsible Anesthesiologist Anesthesia Start Time Anesthesia Stop Time ROBOTIC LAPAROSCOPIC PROSTATECTOMY (WRVU 22.46) (Pelvis) Maria E Holder MD 12/07/17 0836 12/07/17 1258 Events Date Time Event Comment 12/07/2017 0836 AN Verify 0836 Start 0836 An Start Data 0845 An Induction 0850 An Intubation 0855 Anesthesia Ready 0926 Skin Incision 0946 1246 Extubation/LMA Out 1253 an stop data 1258 Recovery or ICU Handoff Nataly ent care was transferred to the destination unit staff after review of the patient's medical history, current anesthetic/surgical status and plan, according to the Provider Handoff Checklist. 1258 Stop Meds Name Total Midazolam 2 mg fentaNYL 100 mcg IV Lidocaine 60 mg Propofol 240 mg Rocuronium 120 mg PHENYLephrine 320 mcg ePHEDrine 10 mg Ondansetron 4 mg Dexamethasone 8 mg Neostigmine 4 mg Glycopyrrolate 0.8 mg ceFAZolin (ANCEF) 2g in dextrose 5% 100 mL 4 g Propofol INF 284.49 mg lactated Ringers infusion 1,000 mL 0 mL Lactated Ringers 0 mL * Agents Name O2 Air N2O Sevoflurane (et) * Blood No blood administrations on file. Lines, Drains, and Airways Type Details Placement Removal Urethral Catheter 12/07/17; Urologic surgery; indwelling double lumen catheter; latex; 18; inserted at this facility; 1; 5; 10; none; drainage bag to dependent drainage 12/07/17 0000 by Estephania Moran RN Drain/Device Site 12/07/17; Right; collapsible closed device; Sterile prep and drape; 19 maria teresa drain 12/07/17 0000 by Estephania Moran RN Incision 02/28/17; 0811; (vcienta st, port sites x 6); 12/07/17; 1239 02/28/17 0811 by Mario Jaeger RN 12/07/17 1239 by Amaya Reyna RN Incision 12/07/17; abdomen; laparoscopic puncture; robotic ports x 4 with 2 lap pads; 11/21/21 (LDA cleanup utility RA#[id number]); 1715 (LDA cleanup utility RA#[id number]) 12/07/17 0000 by Estephania Moran RN 11/21/21 1715 by Myrna Hilliard (RETIRED) Peripheral IV Line - Single Lumen 12/07/17; 0807; median vein (underside of arm), left; [id number] catheter system; 18 gauge, 1 in length; Alisia Hoffman RN; intradermal injection, distraction, tolerated well; 0; 12/09/17; 1455 12/07/17 0807 by Alisia Hoffman RN 12/09/17 1455 by Vale Lopez RN ETT Mask Ventilation: Ea sy (1); ETT Type: Cuffed, Oral; ETT Size: 7.5 mm; Mac Blade: 3; Notes: Asleep, Pre-O2, Stylette; Attempts: 1; Laryngoscopy Grade: 1; ETT Placement Verified By: Auscultation, Capnometry; Secured at Teeth: 23 cm; Inserted by: Shanel Farley MD; Removal Date: 12/07/17; Removal Time: 1253 12/07/17 0850 by Chikis Farley 12/07/17 1253 by Chikis Farley NG/OG Tube 12/07/17; 0910; orogastric; mouth; Taped; 12/07/17; 1540 12/07/17 0910 by Chikis Farley 12/07/17 1540 by Clover Greenwood (RETIRED) Peripheral IV Line - Single Lumen 12/07/17; 0910; metacarpal vein (top of hand), right; [id number] catheter system; 18 gauge; Perla Holder MD; 12/09/17; 1455 12/07/17 0910 by Chikis Farley 12/09/17 1455 by Vale Lopez RN documented in this encounter Social History Tobacco [...] documented as of this encounter OR Notes * Anesthesia Postprocedure Evaluation - Chikis Farley - 12/07/2017 1:00 PM EDT [facility] Department of Anesthesiology Post-procedure Note Patient: Amanuel Hussein Procedure Summary Date Anesthesia Start Anesthesia Stop Room / Location 12/07/[address] [facility] MAIN OR Procedure Diagnosis Surgeon Responsible Provider LAPAROSCOPIC PROSTATECTOMY, ROBOTICS ASSISTED (VU 21.36) (N/A Pelvis); MODIFIER ROBOT,DAVSABINAI XI (N/A ); LAPAROSCOPY,WITH BILATERAL TOTAL PELVIC LYMPHADENECTOMY, ROBOTIC (WRVU 12) (Bilateral Flank)Prostate cancer (Prostate Cancer) Nabil Camargo MD Schroeck, Hedwig, MD All Anesthesia Providers: Anesthesiologist: Maria E Holder MD Shadowgraph Scale Operator: Chikis Farley MD Most Recent Vitals: 12/07/17 0714 BP: 159/90 Pulse: 62 Resp: 16 Temp: 36.7 ??C (98.1 ??F) SpO2: 98% Pain Patient Location: PACU/[facility] Level of Consciousness: Awake and Alert [...] Satisfied with anesthesia care. Chikis Farley MD * Anesthesia Preprocedure Evaluation - Chikis Farley - 12/06/2017 6:03 PM EDT Pre-Anesthesia Evaluation [...] performed by Real Jones MD at [facility] ENDOSCOPY ??? PRO LAPAROSCOPY, SURG, REPAIR PARAESOPHAGEAL HERNIA, W/O IMPLANTATION OF MESH N/A 02/28/2017 ROBOT XI LAPAROSCOPIC PARAESOPHAGEAL HERNIA REPAIR W/FUNDOPLASTY,W/O MESH (WRVU 26.6) performed by Al Ortiz MD at [facility] MAIN OR ??? PRO UPPER GI ENDOSCOPY, BIOPSY 12/04/2012 UPPER GASTROINTESTINAL ENDOSCOPY,WITH BIOPSY SINGLE OR MULTIPLE performed by Real Jones MD at [facility] ENDOSCOPY ??? PRO UPPER GI ENDOSCOPY, BIOPSY N/A 11/29/2016 UPPER GASTROINTESTINAL ENDOSCOPY,WITH BIOPSY SINGLE OR MULTIPLE (WRVU 2.49) performed by Kaiser Doyle MD at [facility] ENDOSCOPY ??? PRO UPPER GI ENDOSCOPY, DIAGNOSTIC N/A 02/28/2017 EGD, UPPER GI ENDOSCOPY performed by Al Ortiz MD at [facility] MAIN OR Social History Substance Use [...] esophageal ulcer s/p repair (02/2017) and newly diagnosed prostate ca now scheduled for laparoscopic robotic-assisted prostatectomy. Medical/Surgical History: GERD, hiatal hernia w/ esophageal ulcer s/p repair (02/2017), also reports shoulder surgery, achilles tendon repair, carpal tunnel Anesthetic [...] TH Visit (TeleHealth) Radiation Oncology at [address] [address] Zahira Jaffe PA [facility] DR HEMATOLOGY [place] [address] documented as of this encounter Visit Diagnoses Not on filedocumented in this encounter Administered Medications Inactive Administered Medications - up to 3 most recent administrations Medication Order MAR Action Action Date Dose Rate Site ceFAZolin (ANCEF) 2g in dextrose 5% 100 mL 2 g, Intravenous, ADOPTION COUNSELOR TO O.R., 1 dose, On Sun12/07/17 at 0745, Administer over 30 Minutes, Day of Surgery (Day of Procedure), Indication for (Active or Suspected): Prophylaxis Given 12/07/2017 12:13 PM EDT 2 g Given 12/07/2017 9:15 AM EDT 2 g dexamethasone (DECADRON) injection PRN, Starting on Sun12/07/17 at 0921, Until Sun12/07/17 at 1301, Anesthesia Intra-op, Routine Given 12/07/2017 9:21 AM EDT 8 mg ePHEDrine 5 mg/mL multi-dose injection PRN, Starting on Sun12/07/17 at 0923, Until Sun12/07/17 at 1301, Anesthesia Intra-op, Routine Given 12/07/2017 9:23 AM EDT 10 mg fentaNYL 50 mcg/mL multi-dose injection PRN, Starting on Sun12/07/17 at 0845, Until Sun12/07/17 at 1301, Pain, Anesthesia Intra-op, Routine Given 12/07/2017 12:23 PM EDT 25 mcg Given 12/07/2017 11:00 AM EDT 25 mcg Given 12/07/2017 8:45 AM EDT 50 mcg glycopyrrolate (ROBINUL) multi-dose injection PRN, Starting on Sun12/07/17 at 1227, Until Sun12/07/17 at 1301, Anesthesia Intra-op, Routine Given 12/07/2017 12:27 PM EDT 0.8 mg lactated Ringers infusion CONTINUOUS PRN, Starting on Sun12/07/17 at 0855, Until Sun12/07/17 at 1301, Anesthesia Intra-op New Bag 12/07/2017 8:55 AM EDT lidocaine (PF) (XYLOCAINE) 100 mg/5 mL (2 %) injection PRN, Starting on Sun12/07/17 at 0845, Until Sun12/07/17 at 1301, Anesthesia Intra-op, Routine Given 12/07/2017 8:45 AM EDT 60 mg midazolam (PF) (VERSED) 1 mg/mL multi-dose injection PRN, Starting on Sun12/07/17 at 0836, Until Sun12/07/17 at 1301, Sleep, Anesthesia Intra-op, Routine Given 12/07/2017 8:55 AM EDT 1 mg Given 12/07/2017 8:36 AM EDT 1 mg neostigmine (BLOXIVERZ) injection PRN, Starting on Sun12/07/17 at 1227, Until Sun12/07/17 at 1301, Anesthesia Intra-op, Routine Given 12/07/2017 12:27 PM EDT 4 mg ondansetron (ZOFRAN) injection PRN, Starting on Sun12/07/17 at 1142, Until Sun12/07/17 at 1301, Nausea, Anesthesia Intra-op, Routine Given 12/07/2017 11:42 AM EDT 4 mg PHENYLephrine in NS (PF) (SHABBIR-SYNEPHRINE) 0.8 mg/10 mL (80 mcg/mL) multi-dose injection Syrg PRN, Starting on Sun12/07/17 at 0907, Until Sun12/07/17 at 1301, Anesthesia Intra-op, Routine Given 12/07/2017 9:19 AM EDT 160 mcg Given 12/07/2017 9:07 AM EDT 160 mcg propofol (DIPRIVAN) 10 mg/mL bolus injection (Anesthesia) PRN, Starting on Sun12/07/17 at 0845, Until Sun12/07/17 at 1301, Anesthesia Intra-op Given 12/07/2017 8:45 AM EDT 240 mg propofol (DIPRIVAN) infusion CONTINUOUS PRN, Starting on Sun12/07/17 at 0953, Until Sun12/07/17 at 1301, Anesthesia Intra-op, Routine New Bag 12/07/2017 9:53 AM EDT 30 mcg/kg/min 15.7 mL/hr rocuronium (ZEMURON) multi-dose injection PRN, Starting on Sun12/07/17 at 0845, Until 12/07/17 at 1301, Anesthesia Intra-op, Routine Given 12/07/2017 11:48 AM EDT 10 mg Given 12/07/2017 11:19 AM EDT 10 mg Given 12/07/2017 11:03 AM EDT 10 mg documented in this encounter Care Teams Siding Applicator Relationship Specialty Start Date End Date Clara Wood MD [address] [facility] [address] [place] [address] PCP - General Family Medicine 01/26/17 documented as of this encounter
--- OUTSIDE RECORDS SUMMARY | 2023-10-11 01:49 | XMS_ITS | Encounter Summary ---
Author Organization [facility] Address [facility] [place] [address] Care Team Providers Care Hat Sizer Name Role Phone Clara Wood MD Primary Care Provider [phone] Encounter Details Date Type Department Care Team (Late st Contact Info) Description 04/23/2018 9:00 AM EST - 04/23/2018 9:30 AM EST [place] [address] Kaiser Doyle MD [facility] [place] [address] EGD, UPPER GI ENDOSCOPY (WRVU 2.09) Social History Tobacco Use Types Packs/Day Years [...] AM ES T Respiratory Rate 18 04/23/2018 9:30 AM EST Oxygen Saturation 98% 04/23/2018 9:30 AM EST Inhaled Oxygen Concentration - - Weight 88.5 kg (195 lb) 04/23/2018 7:39 AM EST Height 175.3 cm (5' 9) 04/23/2018 7:39 AM EST Body Mass Index 28.8 04/23/2018 7:39 AM EST documented in this encounter Discharge Instructions * Discharge Instructions* Mario Mcintosh RN - 04/23/2018 9:58 AM EST [...] better as expected. Sunday-Sunday Same Day Endo [phone] Otherwise contact [phone] and ask to speak to the title clerk consulting intern Follow-up care is a johnson part of [...] EDT TH Visit (TeleHealth) Radiation Oncology at [address] [address] Zahira Jaffe PA [facility] DR [place] [address] documented as of this encounter Procedures Procedure [...] AM EST 04/23/2018 10:55 AM EST Narrative [facility] - 04/23/2018 10:55 AM EST Specimen requisition ordered. ??Separate Pathology report to follow Resulting Agency Comment Spec In Lab Kaiser Doyle MD PATHOLOGY/CYTOLOG Y ORDERABLES [facility] [place] [address] * Surgical Pathology Report (04/23/2018 9:42 AM EST) Surgical Pathology Report [id number] ? Location: 4T; EA11; A The signing pathologist has (i) examined the relevant preparation(s) for the specimen(s) and (ii) rendered or confirmed the diagnosis(es). . ?Surgical Pathology DIAGNOSIS GE junction, ??biopsy: Squamous esophageal and cardiac mucosa with chronic nonspecific gastritis. No goblet cell metaplasia is seen. Electronically signed by: ??Luan Singleton MD Verified: ??04/25/2018 ?Pathologist Performed at: ??-[facility] Dept. of Pathology, [place], [place] CLINICAL INFORMATION Specimen Submitted: A - Ge junction 40 Clinical History and Diagnosis: Esophagitis, GERD, screening Latif's SPECIMEN PROCESSING A - Labeled/Fixativ e: GE junction BX, formalin. Quantity/Size: Five, averaging 0.2 cm. Tissue Description: Soft, white tissues. Sections/Proces sing: Submitted en toto ??in 1 cassette labeled A1. ??dolores [facility] 04/23/2018 9:42 AM EST Kaiser Doyle MD PATHOLOGY/CYTOLOG Y ORDERABLES [facility] [place] [address] * UPPER GI ENDOSCOPY (04/23/2018 9:18 AM EST) UPPER GI ENDOSCOPY [facility] Endoscopy Procedure Date: 04/23/2018 9:18 AM ? Patient Name: Amanuel Hussein ? Date of : 1955 ? Age: 63 ? Order #: [id number] ? Instrument Name: [id number] ? Procedure: ? Upper GI endoscopy Indications: ? Screening for Latif's esophagus, ? Follow-up of reflux esophagitis Patient Profile: ? This is a 63 year old male. Providers: ? Kaiser Doyle MD, Britany Collazo, ? RN, Mario Saldana MD: ?Clara Wood [...] entire procedure. ? Dr. Austin Doyle ___ Kiaser Doyle MD 04/23/2018 10:19:53 AM Number of Addenda: 0 Note Initiated On: 04/23/2018 9:18 AM PROVATION 04/23/2018 9:18 AM EST Clara Wood MD GENERAL SURGICAL ORD [facility] PROVATION documented in this encounter Visit Diagnoses Not on filedocumented in this encounter Administered Medications Inactive Administered Medications - up to 3 most recent administrations Medication Order MAR Action Action Date Dose Rate Site fentaNYL 50 mcg/mL multi-dose injection ONCE PRN, Starting on Sun04/23/18 at 0933, Until Sun04/23/18 at 1303, Intra-Operative (Intra-Procedure), Routine Given 04/23/2018 9:42 AM EST 50 mcg Right Arm Given 04/23/2018 9:39 AM EST 50 mcg Ri ght Arm Given 04/23/2018 9:36 AM EST 50 mcg Ri ght Arm lactated Ringers infusion 100 mL/hr, Intravenous, CONTINUOUS, Starting on Sun04/23/18 at 0800, Until Sun04/23/18 at 1303, Endoscopy (Day of Procedure) New Bag 04/23/2018 8:00 AM EST 100 mL/hr 100 mL/hr midazolam (PF) (VERSED) multi-dose injection ONCE PRN, Starting on Sun04/23/18 at 0933, Until Sun04/23/18 at 1303, Intra-Operative (Intra-Procedure), Routine Given 04/23/2018 9:42 AM EST 1 mg Given 04/23/2018 9:39 AM EST 1 mg Given 04/23/2018 9:35 AM EST 1 mg documented in this encounter Active and Recently Administered Medications Times are shown in EST. Continuous Medication Order 04/21/2018 04/22/2018 04/23/2018 lactated Ringers infusion 100 mL/hr, Intravenous, CONTINUOUS, Starting on Sun04/23/18 at 0800, Until Sun04/23/18 at 1303, Endoscopy (Day of Procedure) 0800 (New Bag - Prov ider: Torrie Douglas RN) PRN Medication Order 04/21/2018 04/22/2018 04/23/2018 fentaNYL [...] Britany Collazo RN)[phone] (Given - Provider: Britany M Collazo, RN) documented in this encounter Care Teams Hat Sizer Relationship Specialty Start Date End Date Clara Wood MD [address] [facility] [[email or web address] [address] [place] [address] PCP - General Family Medicine 01/26/17 documented as of this encounter
--- OUTSIDE RECORDS SUMMARY | 2023-10-11 01:49 | XMS_ITS | Encounter Summary ---
Author Organization [facility] [place] [address] Care Team Providers Care Back Facer Name Role Phone Clara Wood MD Primary Care Provider [phone] Reason for Visit * Reason Onset Date Comments Prostate Cancer 10/18/2017 * Consultation (Routine) - Specialty Diagnoses / Procedures Referred By Lobo dean Referred To Contact Urology Diagnoses Prostate cancer PROSTATE CANCER Mazin Mcqueen MD [address] [place] [address] [facility] [place] [address] Referral ID Status Reason Start Date Expiration Date V isits Requested Visits Authorized [id number] Consult, Test & Treat Connection [facility] PCP Updated and/or Approved 09/06/2017 03/08/2018 6 6 Encounter Details Date Type Department Care Team (Late st Contact Info) Description 10/18/2017 8:30 AM EDT Office Visit Hematology [place] [address] Nabil Camargo MD [facility] [place] [address] Prostate cancer Social History Tobacco Use Types [...] 36.6 ??C (97.9 ??F) 10/18/2017 8:28 AM ED T Respiratory Rate 18 10/18/2017 8:30 AM EDT Oxygen Saturation 98% 10/18/2017 8:30 AM EDT Inhaled Oxygen Concentration - - Weight 88.7 kg (195 lb 8.8 oz) 10/18/2017 8:28 A M EDT Height 175 cm (5' 8.9) 10/18/2017 8:28 AM EDT Body Mass Index 28.96 10/18/2017 8:28 AM EDT documented in this encounter Patient Instructions * Patient Instructions* Nabil Camargo MD - 10/18/2017 9:25 AM EDT [...] or you can obtain it from the [facility] Same day program on the day of [...] you have any questions please call the [facility] at or documented in this encounter Progress Notes * Rosemarie Wilkinson RN - 10/18/2017 8:30 AM [...] Total IPSS Score 1 ( MILD LUTS) * Nabil Camargo MD - 10/18/2017 8:30 AM EDT Patient Name: Amanuel Hussein Date of Service: 10/18/2017 Referring Provider: [place] [address] Primary Care Provider: Clara Wood MD HPI: Amanuel Hussein is a 62 y.o. 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 He was found to have an elevated PSA to 12 and underwent TRUS/PNBx on 08/06/2017 which found Sarah 4+4 prostate cancer as below: DIAGNOSIS CONSULTATION CASE Outside slide(s) labeled [id number], collection date 08/06/2017. A - Prostate, base [...] core biopsy: Prostatic adenocarcinoma, Grade Group 3, [place] score 4+3, involving 70% of fragmented core ([place] pattern 4 represents 60% of tumor). Perineural invasion is present. Suspicious for extraprostatic extension. H - Prostate, base left medial, needle core biopsy: Prostatic adenocarcinoma, Grade Group 3, [place] score 4+3, involving 95% of a single [...] core biopsy: Prostatic adenocarcinoma, Grade Group 3, [place] score 4+3, involving 60% of a single core ([place] pattern 4 represents 70% of tumor). Perineural invasion is present. K - Prostate, apex left lateral, needle core biopsy: Prostatic adenocarcinoma, Grade Group 3, [place] score 4+3, involving 100% of a single core ([place] pattern 4 represents 70% of tumor). Perineural [...] thorough discussion with Amanuel Hussein regarding the characteristicsof his cancer and the risks, benefits, rationale, implications and alternatives of the various management options. I discouraged him from considering primary androgen deprivation therapy since it is not curative and is associated with multiple side effects, such as [...] side effects which include urinary urgency, frequency, urethralstricture as well as the potential for erectile dysfunction and rectal irritation or frequency of estrellita wel movements. I explained there is an approximately 2% chance of serious bladder or rectal toxicity as well as a very low risk of inducing a secondary malignancy. The potential downside of radiationis the lack of complete pathologic review and lack of reliable salvage curative options. Active surveillance was described as a reasonable management strategy which has been associated with excellent short and intermediate term cancer control. The concept is to closely follow the cancer and intervene as needed at any meaningful sign of increased tumor volume or increased grade. Severalstudies have suggested delayed treatment has been associated with similar oncologic outcomes to immediate treatment. Approximately 5% of patients per year require an intervention and discontinue active surveillance. I explained there is consistent data showing a 98% cancer-specific survival at 10 years following the diagnosis and in Very Low Risk patients there is less than 1% risk of progressionto metastatic disease at 15 years but mcfp data beyond this is not currently available. He understands there is a low but real chance of missing his window of curative opportunity. Lastly we discussed the rationale of a re-biopsy of his prostate if he is interested in this approach since approx imately 20-30% of patients will have higher grade or higher volume disease which exclude them from considering active surveillance. At the completion of our discussion, multiple questions were answered to the best of my ability. Heappears to be very well informed about his cancer as well as the options. I explained to him there is no cabrales in making a decision, and the most important thing is that he feels comfortable and educated regarding his options and ultimate choice. He is leaning towards surgery . I have encouraged him to meet with radiation oncology in regards toradiation treatment options however he declines. I answered [...] of your patient. Feel free to contact meshould the need arise. I will be sure to keep you informed of any changes. documented in this encounter Plan of Treatment Upcoming Encounters Date Type Department Care Team (Late st Contact Info) Description 01/08/2024 1:45 PM EDT TH Visit (TeleHealth) Radiation Oncology at [address] [phone] Zahira Jaffe PA [facility] DR HEMATOLOGY [place] [address] documented as of this encounter Procedures Procedure Name Priority Date/Time Associated Diagnosis Comments LAPAROSCOPIC PROSTATECTOMY-UROL\ROBOTI CS ASSISTED Routine 10/18/2017 9:25 AM EDT Prostate cancer documented in this encounter Results * (ABNORMAL) Comprehensive metabolic panel (non-fasting) (10/18/2017 11:46 AM EDT) Glucose Lvl 117 65 - 199 mg/dL [facility] Comment:Diabetes: >=200 mg/d L plus symptoms BUN 14 10 - 20 mg/dL [facility] Creatinine 1.03 0.80 - 1.50 mg/dL [facility] Sodium 143 135 - 145 mmol/L [facility] Potassium 3.9 3.5 - 5.0 mmol/L [facility] Comment: Please note: ??Patients with WBC >100,000 may have falsely elevated Potassium levels. ??For accurate Potassium quantification in these patients send serum separator tube (gold top) for subsequent determinations. ??Contact the Clinical Chemistry Laboratory if there are any questions. Chloride 100 98 - 107 mmol/L [facility] CO2 25 22 - 31 mmol/L [facility] Anion Gap 18(H) 5 - 15 mmol/L [facility] Calcium 9.1 8.5 - 10.5 mg/dL [facility] Total Protein 7.3 6.1 - 8.0 gm/dL [facility] Albumin 4.4 3.2 - 5.2 gm/dL [facility] AST 24 0 - 39 unit/L [facility] ALT 21 0 - 55 unit/L [facility] Alk Phos 68 40 - 120 unit/L [facility] Total Bilirubin 0.9 0.2 - 1.3 mg/dL [facility] Estimated GFR 77 >=60 mL/min/1. 73 m?? [facility] Comment: The eGFR was calculated using the CKD-EPI equation. As with all creatinine based estimates of kidney function, eGFR values calculated with the CKD-EPI equation are not accurate in patients with acute kidney failure, extremes of body mass or the acutely ill. [email or web address] [email or web address] [email or web address]/DHMCnkf eGFR 89 >=60 mL/min/1. 73 m?? [facility] Comment: The eGFR was calculated using the CKD-EPI equation. As with all creatinine based estimates of kidney function, eGFR values calculated with the CKD-EPI equation are not accurate in patients with acute kidney failure, extremes of body mass or the acutely ill. [email or web address] http://[employer]/DHMCnkf Blood specimen (specimen) 10/18/2017 11:46 AM EDT 10/18/2017 12:50 PM EDT Narrative Resulting Agency Comment Spec In Lab Nabil Camargo MD [place] [address] documented in this encounter Visit Diagnoses Diagnosis Prostate cancer Malignant neoplasm of prostate documented in this encounter Care Teams Back Facer Relationship Specialty Start Date End Date Clara Wood MD [address] [place] [address] PCP - General Family Medicine 01/26/17 documented as of this encounter
--- OUTSIDE RECORDS SUMMARY | 2023-10-11 01:49 | XMS_ITS | Encounter Summary ---
Author Organization [facility] [place] [address] Care Team Providers Care Pony Edger Name Role Phone Clara Wood MD Primary Care Provider [phone] Encounter Details Date Type Department Care Team (Late st Contact Info) Description 12/25/2017 [place] [phone] Aileen Amaya MD [facility] [place] [address] Social History Tobacco Use Types Packs/Day Years [...] encounter Miscellaneous Notes * Telephone Encounter - Aileen Amaya MD - [...] keep monitoring for now and call us back if he does not feel well or his temp gets to 101 F. He understands. documented in this encounter Plan of Treatment Upcoming Encounters Date Type Department Care Team (Late st Contact Info) Description 01/08/2024 1:45 PM EDT TH Visit (TeleHealth) Radiation Oncology at [address] [phone] Zahira Jaffe PA [facility] DR [place] [address] documented as of this encounter Visit Diagnoses Not on filedocumented in this encounter Care Teams Pony Edger Relationship Specialty Start Date End Date Clara Wood MD [address] [place] [address] PCP - General Family Medicine 01/26/17 documented as of this encounter
--- OUTSIDE RECORDS SUMMARY | 2023-10-11 01:49 | XMS_ITS | Encounter Summary ---
Author Organization [facility] [place] [address] Care Team Providers Care Supervisor Furnace Room Name Role Phone Clara Wood MD Primary Care Provider [phone] Encounter Details Date Type Department Care Team (Late st Contact Info) Description 10/15/2017 External [place] [phone] Provider, Scanning Social History Tobacco Use Types Packs/Day Years [...] EDT TH Visit (TeleHealth) Radiation Oncology at [address] [phone] Zahira Jaffe PA [facility] DR HEMATOLOGY [place] [address] documented as of this encounter Procedures Procedure Name Priority Date/Time Associated Diagnosis Comments SURGICAL PATHOLOGY SCAN Routine 10/15/2017 documented in this encounter Results * Scan Doc: Surgical Pathology (10/15/2017) Nabil Camargo MD MEDIA MGR SCAN EXT ORDR/RSLT documented in this encounter Visit Diagnoses Not on filedocumented in this encounter Care Teams Supervisor Furnace Room Relationship Specialty Start Date End Date Clara Wood MD [address] [facility] [place] [address] PCP - General Family Medicine 01/26/17 documented as of this encounter
--- OUTSIDE RECORDS SUMMARY | 2023-10-11 01:49 | XMS_ITS | Encounter Summary ---
Author Organization [facility] [place] [address] Care Team Providers Care Liquified Natural Gas Specialist Name Role Phone Clara Wood MD Primary Care Provider [phone] Encounter Details Date Type Department Care Team (Latest Contact Info) Description 10/18/2017 10:40 AM EDT Clinical Support [facility] [place] [address] Pre-operative exam Social History Tobacco Use Types Packs/Day Years [...] as of this encounter Progress Notes * Enid Montemayor RN - 10/18/2017 10:40 AM EDT PAT questionnaire reviewed with patient and while in Pre Admission testing. Denies any issues with anesthesia in the past. Very healthy gentleman who previously had a hiatal hernia repaired herein Dec. Pre-operative instruction booklet reviewed. Patient verbalizes a good understanding of all information reviewed. PLAN: Testing: Labs Special medication instructions: Will need to have T&S done on the DOS, too far out to do at PAT visit Procedure date: 12/07/17 documented in this encounter Plan of Treatment Upcoming Encounters Date Type Department Care Team (Late st Contact Info) Description 01/08/2024 1:45 PM EDT TH Visit (TeleHealth) Radiation Oncology at [address] [phone] Zahira Jaffe PA [facility] DR [place] [address] documented as of this encounter Visit Diagnoses Diagnosis Pre-operative exam Preoperative examination, unspecified documented in this encounter Care Teams Liquified Natural Gas Specialist Relationship Specialty Start Date End Date Clara Wood MD [facility] [address] [place] [address] PCP - General Family Medicine 01/26/17 documented as of this encounter
--- OUTSIDE RECORDS SUMMARY | 2023-10-11 01:49 | XMS_ITS | Encounter Summary ---
Author Organization [facility] [place] [address] Care Team Providers Care Reception Clerk Name Role Phone Clara Wood MD Primary Care Provider [phone] Encounter Details Date Type Department Care Team (Late st Contact Info) Description 12/17/2017 9:40 AM EDT [place] [address] Nabil Camargo MD [facility] [place] [address] Malignant neoplasm of prostate Social History Tobacco [...] 36.6 ??C (97.8 ??F) 12/17/2017 9:31 AM ED T Respiratory Rate - - Oxygen Saturation 98% 12/17/2017 9:31 AM EDT Inhaled Oxygen Concentration - - Weight - - Height - - Body Mass Index - - documented in this encounter Progress Notes * Nabil Camargo MD - 12/17/2017 9:40 AM [...] x year 2, then annually # Reinforced Indergel excercises We discussed his pathology result in detail. We discussed the role of adjuvant radiotherapy in the setting of adverse pathology T3a. Based on his very small unifocal positive margin and primarily lowgrade disease, I recommended a watchful waiting approach [...] TH Visit (TeleHealth) Radiation Oncology at [address] [phone] Zahira Jaffe PA [facility] DR HEMATOLOGY [place] [address] documented as of this encounter Results * PSA (02/25/2018 9:04 AM EST) PSA Total (Ultrasensitiv e) <0.01 0.00 - 4.00 ng/mL [facility] Blood specimen (specimen) 02/25/2018 9:04 AM EST 02/25/2018 9:22 AM EST Narrative Resulting Agency Comment Spec In Lab Nabil Camargo MD CHEMISTRY ORDERABL ES [facility] [place] [address] documented in this encounter Visit Diagnoses Diagnosis Malignant neoplasm of prostate documented in this encounter Care Teams Reception Clerk Relationship Specialty Start Date End Date Clara Wood MD [facility] [address] [place] [address] PCP - General Family Medicine 01/26/17 documented as of this encounter
--- OUTSIDE RECORDS SUMMARY | 2023-10-11 01:49 | XMS_ITS | Encounter Summary ---
Author Organization [facility] [place] [address] Care Team Providers Care Automotive Services Manager Name Role Phone Clara Wood MD Primary Care Provider [phone] Encounter Details Date Type Department Care Team (Latest Contact Info) Description 02/25/2018 9:20 AM EST Laboratory Appointment Lab [address] [place] [address] Malignant neoplasm of prostate Social History Tobacco [...] TH Visit (TeleHealth) Radiation Oncology at [address] [phone] Zahira Jaffe PA [facility] DR [place] [address] documented as of this encounter Procedures Procedure Name Priority Date/Time Associated Diagnosis Comments PSA (ULTRASENSITIVE) STAT 02/25/2018 9:04 AM EST Malignant neoplasm of prostate documented in this encounter Results * PSA (02/25/2018 9:04 AM EST) PSA Total (Ultrasensitiv e) <0.01 0.00 - 4.00 ng/mL [facility] Blood specimen (specimen) 02/25/2018 9:04 AM EST 02/25/2018 9:22 AM EST Narrative Resulting Agency Comment Spec In Lab Nabil Camargo MD CHEMISTRY ORDERABL ES [facility] [place] [id number] documented in this encounter Visit Diagnoses Diagnosis Malignant neoplasm of prostate documented in this encounter Care Teams Automotive Services Manager Relationship Specialty Start Date End Date Clara Wood MD [address] [place] [address] PCP - General Family Medicine 01/26/17 documented as of this encounter
--- OUTSIDE RECORDS SUMMARY | 2023-10-11 01:49 | XMS_ITS | Encounter Summary ---
Author Organization Formerly [facility] [place] [address] Care Team Providers Care Brake Mechanic Name Role Phone Clara Wood MD Primary Care Provider [phone] Reason for Referral * Diagnostic Test (Routine) - Closed Specialty Diagnoses / Procedures Referred By Contac t Referred To Contact Radiology Diagnoses Paraesophageal hernia Procedures XR Fluoro Barium Swallow Al Ortiz MD [facility] [place] [address] [facility] Rad Xray [address] [place] [address] [place] [address] Referral ID Status Reason Start Date Expiration Date V isits Requested Visits Authorized [id number] Closed Specialty Service Requested 03/16/2017 03/16/2018 1 1 Reason for Visit * Diagnostic Test (Routine) - Closed Specialty Diagnoses / Procedures Referred By Contac t Referred To Contact Radiology Diagnoses Paraesophageal hernia Procedures XR Fluoro Barium Swallow lA Ortiz MD [facility] [place] [address] [facility] Rad Xray [address] [place] [address] [place] [address] Referral ID Status Reason Start Date Expiration Date V isits Requested Visits Authorized [id number] Closed Specialty Service Requested 03/16/2017 03/16/2018 1 1 Encounter Details Date Type Department Care Team (Latest Contact Info) Description 09/14/2017 7:16 AM EDT - 09/14/2017 11:59 PM EDT Hospital Encounter XRay at [address] [place] [address] Al Ortiz MD [facility] [place] [address] Paraesophageal hernia Discharge Disposition: Home Social History Tobacco [...] TH Visit (TeleHealth) Radiation Oncology at [address] [phone] Zahira Jaffe PA [facility] HEMATOLOGY [place] [address] documented as of this encounter Procedures Procedure Name Priority Date/Time Associated Diagnosis Comments XR FLUORO BARIUM SWALLOW (SINGLE CONTRAST) Routine 09/14/2017 8:53 AM EDT Paraesophageal hernia documented in this encounter Results * (ABNORMAL) XR Fluoro Barium Swallow (09/14/2017 8:53 AM EDT) Anatomical Region Laterality Modality N/A Radio Fluoroscop y Impressions 09/14/2017 11:02 AM EDT The esophagus had a normal appearance. There is retained liquid in the stomach and the gastric folds were thickened. Clinical correlation is recommended and if indicated further evaluation should be performed. Unexpected finding. Narrative 09/14/2017 11:02 AM EDT EXAMINATION: XR FLUORO BARIUM SWALLOW CLINICAL HISTORY: s/p paraesophageal hernia repair 02/2017 TECHNIQUE: Double contrast esophagram was performed. Fluoroscopic spot films were obtained. ?? Fluoro time: 1.28 minutes COMPARISON: 03/01/2017 FINDINGS: The esophagus is normal in course and caliber, and is well distended on double contrast views. ??The mucosal pattern is normal. Esophageal peristalsis is normal. No gastroesophageal reflux was seen. The pharynx was normal a barium pill passed freely into the stomach. There was residual liquid in the stomach and the gastric folds appeared thickened. Clinical correlation is recommended and if indicated, further evaluation should be performed. Unexpected finding. Resulting Agency Comment Unexpected Finding Al Ortiz MD IMG FLUORO ORDERABL ES documented in this encounter Visit Diagnoses Diagnosis Paraesophageal hernia Diaphragmatic hernia without mention of obstruction or gangrene documented in this encounter Care Teams Brake Mechanic Relationship Specialty Start Date End Date Clara Wood MD [address] [place] [address] PCP - General Family Medicine 01/26/17 documented as of this encounter
--- OUTSIDE RECORDS SUMMARY | 2023-10-11 01:49 | XMS_ITS | Encounter Summary ---
Author Organization Formerly [facility] [place] [address] Care Team Providers Care Bindery Manager Name Role Phone Clara Wood MD Primary Care Provider [phone] Encounter Details Date Type Department Care Team (Latest Contact Info) Description 09/04/2017 12:05 AM EDT - 09/04/2017 12:09 AM EDT Hospital Encounter [place] [address] Wesley Holder MD [facility] [place] [address] Discharge Disposition: Home Social History Tobacco Use [...] TH Visit (TeleHealth) Radiation Oncology at [address] [phone] Zahira Jaffe PA [facility] [place] [address] documented as of this encounter Procedures Procedure Name Priority Date/Time Associated Diagnosis Comments FILM LIBRARY STORAGE ONLY MR PELVIS Routine 09/04/2017 12:05 AM EDT documented in this encounter Results * Film Library- Storage Only MR Pelvis (09/04/2017 12:05 AM EDT) Narrative [facility] - 10/09/2017 12:56 PM EDT This exam is for storage only and is auto-finalizing. Wesley Holder MD IMG FILM LIBRARY O RDERABLES Performing Organization Address City/State/[facility] Co de Phone Number [place], [place] documented in this encounter Visit Diagnoses Not on filedocumented in this encounter Care Teams Bindery Manager Relationship Specialty Start Date End Date Clara Wood MD [address] [place] [address] PCP - General Family Medicine 01/26/17 documented as of this encounter
--- OUTSIDE RECORDS SUMMARY | 2023-10-11 01:49 | XMS_ITS | Encounter Summary ---
Author Organization [facility] [place] [address] Care Team Providers Care Dinner Cook Name Role Phone Clara Wood MD Primary Care Provider [phone] Encounter Details Date Type Department Care Team (Latest Contact Info) Description 09/04/2017 12:10 AM EDT - 09/04/2017 11:59 PM EDT Hospital Encounter [place] [address] Wesley Holder MD [facility] [place] [address] Discharge Disposition: Home Social History Tobacco Use [...] EDT TH Visit (TeleHealth) Radiation Oncology at [address] [phone] Zahira Jaffe PA [facility] DR [place] [address] documented as of this encounter Procedures Procedure Name Priority Date/Time Associated Diagnosis Comments FILM LIBRARY STORAGE ONLY NUCLEAR MEDICINE Routine 09/04/2017 12:10 AM EDT documented in this encounter Results * Film Library- Storage Only nuclear medicine (09/04/2017 12:10 AM EDT) Narrative [facility] - 10/09/2017 12:59 PM EDT This exam is for storage only and is auto-finalizing. Wesley Holder MD IMG FILM LIBRARY O RDERABLES Performing Organization Address City/State/[facility] Co de Phone Number [place], [place] documented in this encounter Visit Diagnoses Not on filedocumented in this encounter Care Teams Dinner Cook Relationship Specialty Start Date End Date Clara Wood MD [address] [place] [address] PCP - General Family Medicine 01/26/17 documented as of this encounter
--- OUTSIDE RECORDS SUMMARY | 2023-10-11 01:49 | XMS_ITS | Encounter Summary ---
Author Organization [facility] [place] [address] Care Team Providers Care Social Sciences Department Chair Name Role Phone Clara Wood MD Primary Care Provider [phone] Encounter Details Date Type Department Care Team (Latest Contact Info) Description 03/15/2018 7:44 AM EST - 03/15/2018 11:59 PM EST Hospital Encounter XRay at [address] [place] [phone] S/P repair of paraesophageal hernia Discharge Disposition: Home Social History Tobacco [...] Pain. 07/20/2022 documented as of this encounter Plan of Treatment Upcoming Encounters Date Type Department Care Team (Late st Contact Info) Description 01/08/2024 1:45 PM EDT TH Visit (TeleHealth) Radiation Oncology at [address] [phone] Zahira Jaffe V. PA [facility] HEMATOLOGY AND ONCOLOGY [place] [address] documented as of this encounter Procedures Procedure Name Priority Date/Time Associated Diagnosis Comments XR CHEST PA AND LATERAL Routine 03/15/2018 8:01 AM EST S/P repair of paraesophageal hernia documented in this encounter Results * XR Chest PA & Lateral (Generic) (03/15/2018 8:01 AM EST) Anatomical Region Laterality Modality Chest N/A Digital Radiogra phy Impressions 03/15/2018 8:12 AM EST No acute cardiopulmonary process. I have personally reviewed the image(s) and the residents interpretation and agree with the findings, Roc Alfaro at 03/15/2018 8:12 AM Narrative 03/15/2018 8:12 AM EST EXAMINATION: XR CHEST PA AND LATERAL (GENERIC) CLINICAL HISTORY: s/p paraesophageal hernia repair 02/2017 TECHNIQUE: PA and lateral views of the chest COMPARISON: Chest radiograph 03/16/2017 FINDINGS: Lungs are clear. Cardiomediastinal silhouette, haim, and pulmonary vascular markings are within normal limits. No pneumothorax or pleural effusion. ??. Procedure Note Roc Alfaro MD - 03/15/2018 EXAMINATION: XR CHEST PA AND LATERAL (GENERIC) CLINICAL HISTORY: s/p paraesophageal hernia repair 02/2017 TECHNIQUE: PA and lateral views of the chest COMPARISON: Chest radiograph 03/16/2017 FINDINGS: Lungs are clear. Cardiomediastinal silhouette, haim, and pulmonaryvascular markings are within normal limits. No pneumothorax or pleural effusion.. IMPRESSION No acute cardiopulmonary process. I have personally reviewed the image(s) and the residents interpretationand agree with the findings, Roc Alfaro at 03/15/2018 8:12 AM Al Ortiz MD IMG DX ORDERABLES documented in this encounter Visit Diagnoses Diagnosis S/P repair of paraesophageal hernia Other postprocedural status documented in this encounter Care Teams Social Sciences Department Chair Relationship Specialty Start Date End Date Clara Wood MD [address] [place] [address] PCP - General Family Medicine 01/26/17 documented as of this encounter
--- OUTSIDE RECORDS SUMMARY | 2023-10-11 01:49 | XMS_ITS | Encounter Summary ---
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 Social History Tobacco Use Types Packs/Day Years [...] 36.6 ??C (97.9 ??F) 09/14/2017 8:58 AM ED T Respiratory Rate 18 09/14/2017 8:58 AM EDT Oxygen Saturation 98% 09/14/2017 8:58 AM EDT Inhaled Oxygen Concentration - - Weight 89.4 kg (197 lb) 09/14/2017 8:58 AM EDT Height 175 cm (5' 8.9) 09/14/2017 8:58 AM EDT Body Mass Index 29.18 09/14/2017 8:58 AM EDT documented in this encounter Patient Instructions * Patient Instructions* Marylou Sands RN - 09/14/2017 9:00 AM EDT [...] Progress Notes * Al Ortiz MD - 09/14/2017 9:00 AM EDT Thoracic Surgery Attending Outpatient Consultation Note Al Ortiz MD [place] [address] ?? Today, 09/14/2017, I saw . Amanuel Hussein in follow-up from his robotic paraesophageal hernia repair on 02/28/17. He was last seen 03/16/17 and at that time was doing well. He was discharged afteran uneventful postoperative course. Today, he is breathing comfortably and denies fevers. He is eating a regular diet with no [...] (Patient Position: Sitting) Pulse 64 Temp 36.6 ??C(97.9 ??F) (Temporal) Resp 18 Ht 175 cm [...] fundoplication for associated Pedro's ulceration with significant transfusionrequirements over the last several years. He is off anti-acid medications for the last 3 months. Hehas no reflux symptoms or heart burn. I think the thickening that is mentioned on the swallow studyis likely related to the wrap and does not require further investigation at this time. I would liketo see him back in 6 months to ensure he is still doing well. We will obtain a CXR at that time. This was scheduled today. ?? He will also see Dr. [...] TH Visit (TeleHealth) Radiation Oncology at [address] [phone] Zahira Jaffe PA [facility] DR HEMATOLOGY [place] [address] documented as of this encounter Results * XR Chest PA [...] status documented in this encounter Care Teams Mandrel Puller Relationship Specialty Start Date End Date Clara Wood MD [facility] [address] [place] [address] PCP - General Family Medicine 01/26/17 documented as of this encounter
--- OUTSIDE RECORDS SUMMARY | 2023-10-11 01:50 | XMS_ITS | Encounter Summary ---
Author Organization Formerly [facility] Address [facility] [place] [address] Care Team Providers Care Event Operations Manager Name Role Phone Marin Patton MD Primary Care Provider [phone] Reason for Visit * Surgical (Routine) - Specialty Diagnoses / Procedures Referred By Lobo dean Referred To Contact Gastroenterology Diagnoses HH, esophageal dysmotility Procedures ESOPHAGEAL FUNCTION TEST, IMPEDANCE PLACEMENT; >1HR HREM Al Ortiz MD [facility] [place] [address] [facility] [address] [place] [address] Referral ID Status Reason Start Date Expiration Date V isits Requested Visits Authorized [id number] Test Only 12/14/2016 12/14/2017 1 1 Encounter Details Date Type Department Care Team (Latest Contact Info) Description 12/19/2016 10:00 AM EDT Procedure visit [place] [address] Esophageal dysmotility Social History Tobacco Use Types Packs/Day Years Used Date Smoking Tobacco: Former Cigarettes 1.5 20 1 962 - 1982 Smokeless Tobacco: Never Alcohol Use Standard Drinks/Week Comments Yes 0 (1 standard drink = 0.6 oz pur e alcohol) Rare Sex and Gender Information Value Date Recorded Sex Assigned at Not on file Gender Identity Not on file Sexual Orientation Not on file documented as of this encounter Progress Notes * Kristopher Vargas RN - 12/19/2016 10:00 AM EDT HREM catheter placed via Left nare without difficulty. Patient tolerated procedure well. documented in this encounter Plan of Treatment Upcoming Encounters Date Type Department Care Team (Late st Contact Info) Description 01/08/2024 1:45 PM EDT TH Visit (TeleHealth) Radiation Oncology at [address] [phone] Zahira Jaffe PA [facility] DR HEMATOLOGY [place] [address] documented as of this encounter Visit Diagnoses Diagnosis Esophageal dysmotility Dyskinesia of esophagus documented in this encounter Care Teams Event Operations Manager Relationship Specialty Start Date End Date Marin Patton MD PCP - General 02/15/10 01/25/17 documented as of this encounter
--- OUTSIDE RECORDS SUMMARY | 2023-10-11 01:50 | XMS_ITS | Encounter Summary ---
Author Organization [facility] [place] [place] [address] Care Team Providers Care Restaurant And Bar Manager Name Role Phone Clara Wood MD Primary Care Provider [phone] Encounter Details Date Type Department Care Team (Latest Contact Info) Description 01/29/2017 10:30 AM EST Laboratory [place] [address] Paraesophageal hiatal hernia Social History Tobacco Use Types Packs/Day [...] EDT TH Visit (TeleHealth) Radiation Oncology at [address] [phone] Zahira Jaffe PA [facility] DR [place]EMATOLOGY [place] [address] documented as of this encounter Procedures Procedure Name Priority Date/Time Associated Diagnosis Comments HEMOGRAM Routine 01/29/2017 10:50 AM EST Paraesophageal hiatal hernia DIFFERENTIAL, AUTOMATED Routine 01/29/2017 10:50 AM EST Paraesophageal hiatal hernia CBC (WITH DIFF) Routine 01/29/2017 10:50 AM EST Paraesophageal hiatal hernia COMPREHENSIVE METABOLIC PANEL (NON-FASTING) Routine 01/29/2017 10:50 AM EST Paraesophageal hiatal hernia documented in this encounter Results * Differential, Automated (01/29/2017 10:50 AM EST) Neutrophils % 49.0 % [facility] Neutr Abs (ANC) 2.44 1.70 - 6.10 x10(3)/[facility] Lymphocytes % 38.4 % [facility] Lymphocytes Abs 1.9 0.9 - 3.2 x10(3)/[facility] Monocytes % 9.2 % [facility] Monocyte Abs 0.5 0.3 - 0.9 x10(3)/[facility] Eosinophils % 2.2 % [facility] Eosinophils Abs 0.1 0.0 - 0.4 x10(3)/[facility] Basophils % 1.0 % [facility] Basophils Abs 0.0 0.0 - 0.1 x10(3)/[facility] Immature Gran % 0.20 % [facility] Comment: Immature granulocytes(IG's)percentage and absolute count will include metamyelocytes, myelocytes, and promyelocytes. Blood smears from CBCs yielding IG's will be scanned manually for concordance. If this scan disagrees with the automated IG or if promyelocytes are noted, a manual differential will be performed. Malika Gran Abs 0.01 0.00 - 0.04 x10(3)/[facility] Blood specimen (specimen) 01/29/2017 10:50 AM EST 01/29/2017 11:06 AM EST Narrative Resulting Agency Comment Spec In Lab Al Ortiz MD HEMATOLOGY ORDERABL ES [facility] [place] [address] * (ABNORMAL) Hemogram (01/29/2017 10:50 AM EST) Pathologist [facility] WBC 5.0 4.0 - 9.5 x10(3)/[facility] RBC 4.32(L) 4.58 - 5.54 x10(6)/[facility] Hemoglobin 14.4 13.7 - 16.5 gm/dL [facility] Hematocrit 41.9 40.5 - 48.5 % [facility] MCV 97.0(H) 82.9 - 93.1 [facility] MCH 33.3(H) 27.5 - 32.1 pg [facility] MCHC 34.4 32.0 - 35.7 gm/dL [facility] Platelets 218 145 - 357 x10(3)/[facility] RDWSD 41.8 36.0 - 45.0 [facility] RDWCV 11.7 11.4 - 13.8 % [facility] MPV 8.6 7.6 - 12.9 [facility] nRBC % Auto 0.0 % [facility] nRBC Abs Auto 0.000 0.000 - 0.000 x10(3)/[facility] Blood specimen (specimen) 01/29/2017 10:50 AM EST 01/29/2017 11:06 AM EST Narrative Resulting Agency Comment Spec In Lab Al Ortiz MD HEMATOLOGY ORDERABL ES [facility] [place] [address] * Comprehensive metabolic panel (non-fasting) (01/29/2017 10:50 AM EST) Pathologist [facility] Glucose Lvl 87 65 - 199 mg/dL [facility] Comment:Diabetes: >=200 mg/d L plus symptoms BUN 15 10 - 20 mg/dL [facility] Creatinine 1.04 0.80 - 1.50 mg/dL [facility] Sodium 141 135 - 145 mmol/L [facility] Potassium 4.1 3.5 - 5.0 mmol/L [facility] Comment: Please note: ??Patients with WBC >100,000 may have falsely elevated Potassium levels. ??For accurate Potassium quantification in these patients send serum separator tube (gold top) for subsequent determinations. ??Contact the Clinical Chemistry Laboratory if there are any questions. Chloride 103 98 - 107 mmol/L [facility] CO2 26 22 - 31 mmol/L [facility] Anion Gap 12 5 - 15 mmol/L [facility] Calcium 9.2 8.5 - 10.5 mg/dL [facility] Total Protein 7.3 6.1 - 8.0 gm/dL [facility] Albumin 4.4 3.2 - 5.2 gm/dL [facility] AST 28 0 - 39 unit/L [facility] ALT 30 0 - 55 unit/L [facility] Alk Phos 55 40 - 120 unit/L [facility] Total Bilirubin 0.7 0.2 - 1.3 mg/dL [facility] Estimated GFR >60 >=60 [facility] Comment: The reported eGFR should be multiplied by 1.2 for patients. The MDRD is not an appropriate measure of renal function for patients with body mass extremes or in patients with acute kidney failure. [email or web address]/DHnkdep [email or web address] Blood specimen (specimen) 01/29/2017 10:50 AM EST 01/29/2017 11:06 AM EST Narrative Resulting Agency Comment Spec In Lab Al Ortiz MD CHEMISTRY ORDERABLE S [facility] [place] [address] documented in this encounter Visit Diagnoses Diagnosis Paraesophageal hiatal hernia Diaphragmatic hernia without mention of obstruction or gangrene documented in this encounter Care Teams Restaurant And Bar Manager Relationship Specialty Start Date End Date Clara Wood MD [facility] [address] [place] [address] PCP - General Family Medicine 01/26/17 documented as of this encounter
--- OUTSIDE RECORDS SUMMARY | 2023-10-11 01:50 | XMS_ITS | Encounter Summary ---
Author Organization [facility] [place] [address] Care Team Providers Care Blasting Gang Miner Name Role Phone Clara Wood MD Primary Care Provider [phone] Reason for Visit * Auth/Cert Specialty Diagnoses / Procedures Referred By Lobo dean Referred To Contact Diagnoses Diaphragmatic hernia without obstruction or gangrene hiatal hernia with history of bleeding Procedures PRO LAPAROSCOPY, SURG, REPAIR PARAESOPHAGEAL HERNIA, W/O IMPLANTATION OF MESH LAPAROSCOPIC PARAESOPHAGEAL HERNIA REPAIR W/FUNDOPLASTY, W/O MESH (WRVU 26.6) Referral ID Status Reason Start Date Expiration Date Visits Re quested Visits Authorized [id number] 1 1 Encounter Details Date Type Department Care Team (Latest Contact Info) Description 02/28/2017 5:47 AM EST - 03/01/2017 6:33 PM [facility] Hospital Encounter [address] [place] [id number] Al Servin MD [facility] [place] [address] Paraesophageal hiatal hernia Discharge Disposition: Home Social [...] 37.5 ??C (99.5 ??F) 03/01/2017 4:08 PM ES T Respiratory Rate 16 03/01/2017 4:08 PM EST Oxygen Saturation 95% 03/01/2017 4:08 PM EST Inhaled Oxygen Concentration - - Weight 93.9 kg (207 lb) 03/01/2017 6:48 AM EST Height 175.3 cm (5' 9) 02/28/2017 6:10 AM EST Body Mass Index 30.57 02/28/2017 6:10 AM EST documented in this encounter Discharge Summaries * Tyler Bailey MD - 03/01/2017 5:08 PM [...] Primary * Howard Escamilla PA - Physician Roentgenology Teacher * Yary Forbes PA - Physician Roentgenology Teacher Procedure: Procedure(s) with comments: ROBOT XI LAPAROSCOPIC PARAESOPHAGEAL HERNIA REPAIR W/FUNDOPLASTY,W/O MESH (WRVU 26.6) - EGD, robotic paraesophageal hernia repair Have both diagnostic bronchoscope and EGD scope available. TT MODIFIER RIYA ZHENG EGD, UPPER GI ENDOSCOPY History of Presentation: Amanuel Hussein is a 61 y.o. male with a small to moderate hiatal??hernia that is symptomatic with??recurrent bleeding ulceration and melena Hospital Course: Amanuel Hussein was admitted to [facility] on 02/28/2017 via the Same Day Program. He was brought to the operating room on 02/28/[address] Al Servin performed surgery as described above. He tolerated the procedure well and was brought to the Post Anesthesia Care Unit for recovery. After a brief period of time he was transferred to the floorfor continued rehabilitation. Barium Swallow was performed on POD1 [...] questions. During normal business hours, Sunday- Sunday 8:00 a.m.-5:00 p.m., please call to speak to a nurse in the Thoracic Clinic at [phone]. After hours or on weekends or holidays please call: [phone] and ask to speak to the Thoracic Surgeon on c all. Exercise & Activity Level: As you recover from surgery exercise at least 30 minutes a day. Thiscan be broken up into several times a day to achieve this goal at first, but you will be able to work up to doing all 30 minutes at once. Walking, treadmill, stationary bike, elliptical machine or there stationary exercise equipment is appropriate. Take your incentive spirometer home with you. You should use this every hour while awake, 10 times each. This helps you to exercise your respiratory muscles and to breathe deeply. Taking purposeful deep breaths can be just as effective. Do not lift more than 10 pounds for 2 weeks (nothing heavier than a gallon of milk). Don???t exhaust yourself. Rest between activities as you recover from [...] on the side of your incision that may include your breast area. This should improve over time but there may be areas that remain numb. You may use a heating pad set on low or medium, over your incision to help relax the muscles in the area and decrease discomfort. Please take your medication as prescribed. If you are not having good pain control, please call and speak to the nurse in the Thoracic Clinic or the Thoracic Surgeon injection molding machine operator after hours. Sleep: Try to establish normal sleep patterns. Long naps during the day may make it hard for you tosleep at night. Use the pain medication at bedtime for the first week at home if needed. Bowel Movements: After surgery, your bowel movements may not be regular for you, but you should be able to get back to your daily routine quickly. Please make sure to take the stool softeners or mildlaxatives as prescribed to get back to your normal routine. If you do not have a bowel movement formore than 2 days, please call the office. Follow up appointments: You will see Dr. Servin in 2 weeks with a chest Xray within one hour of the appointment. A letter will be mailed to you confirming your appointment information. You should arrange to see your primary care physician, in two weeks. Future Appointments Date Time Provider Department Center 03/01/2017 1:00 PM [facility] DX ROOM 8 Xray Leb Rad Clin Provider Contact Information: Primary Care Provider: Clara Wood MD [phone] Discharge References/Attachments: Discharge References/Attachments None For questions regarding this document or issues relating to this hospitalization on the Thoracic Surgery Service, please contact Dr. Servin' office at . Signed: Tyler Bailey MD 03/01/2017 CC: PCP: Clara Wood MD Referring: No referring provider defined for this encounter. documented in this encounter Discharge Instructions * Patient Instructions* Tyler Bailey MD - 02/28/2017 3:11 PM EST Call if you have a fever of greater than 101 degrees, shaking chills, develop redness or drainage from your incision site(s), or if you have questions. During normal business hours, Sunday- Sunday 8:00 a.m.-5:00 p.m., please call to speak to a nurse in the Thoracic Clinic at [phone]. After hours or on weekends or holidays please call: [phone] and ask to speak to the Thoracic Surgeon on c all. Exercise & Activity Level: As you recover from surgery exercise at least 30 minutes a day. Thiscan be broken up into several times a day to achieve this goal at first, but you will be able to work up to doing all 30 minutes at once. Walking, treadmill, stationary bike, elliptical machine or there stationary exercise equipment is appropriate. Take your incentive spirometer home with you. You should use this every hour while awake, 10 times each. This helps you to exercise your respiratory muscles and to breathe deeply. Taking purposeful deep breaths can be just as effective. Do not lift more than 10 pounds for 2 weeks (nothing heavier than a gallon of milk). Don???t exhaust yourself. Rest between activities as you recover from [...] on the side of your incision that may include your breast area. This should improve over time but there may be areas that remain numb. You may use a heating pad set on low or medium, over your incision to help relax the muscles in the area and decrease discomfort. Please take your medication as prescribed. If you are not having good pain control, please call and speak to the nurse in the Thoracic Clinic or the Thoracic Surgeon injection molding machine operator after hours. Sleep: Try to establish normal sleep patterns. Long naps during the day may make it hard for you tosleep at night. Use the pain medication at bedtime for the first week at home if needed. Bowel Movements: After surgery, your bowel movements may not be regular for you, but you should be able to get back to your daily routine quickly. Please make sure to take the stool softeners or mildlaxatives as prescribed to get back to your normal routine. If you do not have a bowel movement formore than 2 days, please call the office. Follow up appointments: You will see Dr. Servin in 2 weeks with a chest Xray within one hour of the appointment. A letter will be mailed to you confirming your appointment information. You should arrange to see your primary care physician, in two weeks. Future Appointments Date Time Provider Department Center 03/01/2017 1:00 PM [facility] DX ROOM 8 Xray Leb Rad Clin documented in this encounter Progress Notes * Isis Marquez RN - 03/01/2017 5:39 PM EST Patient Name: Amanuel Hussein Patient Age: 61 y.o. Birthdate: 1955 Admit date: 02/28/2017 Attending Physician: Al Servin MD Pt discharged home with no services. Discharge instructions provided, pt and verbalized understanding. Aware of when to call MD and future appointments. IVs d/c'd. Pt walked off unit with his . * Shiloh Ceballos DT - 03/01/2017 10:31 AM [...] post-op diet guidelines and timelines for following both diets. Went over full liquid diet instruction and emphasized that it was to be followed first for4 days upon discharge home. Encouraged drinking boost or similar supplements to get adequate calories and protein. Provided pt with Boost coupon for home use. Pt thankful. Went over marii diet education and emphasized this diet will begin on day 5 and continue to follow marii diet until follow upappointment in 2 weeks. Pt understood. Hvac/R Service Technician emphasized the importance of no carbonated beverages and no straw use and why. Pt understood. Hvac/R Service Technician and pt discussed both diets and foods/ liquids allowed and not allowed in great detail. Patient did not have any questions about either diet, encouragedhim to contact Food and Nutrition Services if any questions should arise when discharged. Contact information was provided. Nutrition will continue to follow. Nutrition [...] unless consulted in the interim. KARY Chew * Tyler Bailey MD - 02/28/2017 4:28 PM EST Surgery Post Op Check Amanuel Hussein is a 61 y.o. male status post robot-assisted paraesophageal hernia repair with fundoplasty S: No nausea/vomiting, chest pain, SOB, abdominal pain. Pain well controlled with LENDING ADVISOR, offers no complaints O: Temp: [36.2 ??C [...] recovering well - pain well controlled with LENDING ADVISOR - hemodynamically stable - UOP adequate, has yet to void post fleming removal however - sips and chips tonight - swallow study * Isis Marquez RN - 02/28/2017 2:47 PM EST Victoriano arrived on the unit with his . He is A&Ox4, dozing between care. VSS, Lap sites with glue intact, KEIKO. LR running at 100mL/hr. Pt oriented to room, sips & chips given, pt tolerating well. * Pamela Ruano RN - 02/28/2017 12:07 PM EST Arrived pacu #2, monitors placed, alarms set. Abd. Port sites x 5 open to air. 12:15 milly PO ice chips with no nausea, denies pain at op site, VSS, meets D/C criteria documented in this encounter H&P Notes * Rosa Bill PA - 02/28/2017 6:09 AM EST Patient Name: Amanuel Hussein Patient Age: 61 y.o. Birthdate: 1955 Admit date: 02/28/2017 Attending Physician: Al Servin MD Thoracic Surgery Preop NAME: Amanuel Hussein DATE: 02/28/17 SURGEON: AL SERVNI PROCEDURE: Esophagoscopy. Laparoscopic, robot assisted repair of paraesophageal hernia with partialfundoplication BRIEF HISTORY: Amanuel Hussein is a 61 y.o. male with a small to moderate hiatal??hernia that is symptomatic with??recurrent bleeding ulceration and melena The patient [...] Doyle MD at [facility] ENDOSCOPY MEDS: No current facility-administered medications [...] ? BODY OF ESOPHAGUS ?Water Swallows:??10. ?Failed:??80%. ?Transmitted(peristaltic):??20%. ?Panesophageal pressurization: 10% ?Premature:??0% ?Rapid:??0%?With large breaks:??0%. ?With small breaks:??0%. ?DCI??(distal contractile integral):??850??mmHg-cm-s (normal is 450 to 5000?mmHg-cm-s). ?Contractilefront velocity:??4??cm/s??(normal is <9.0 cm/s). ?Intrabolus pressure (average [...] of the esophagus??best characterized as frequent failed peristalsis as only [...] abnormal motility in the body of the esophagus with only 2 of 10 swallows being transmitted likely explains symptoms of reflux. In the occasionalpatient, these findings may indicate the presence of [...] reports from 08/2012 and 11/2012 here at [facility] also reviewed. Normal colonoscopy 11/2012 ? Sommer pH from 11/2012 at [facility]: Calculated DeMeester Score (normal values are up to 14.72) Day One Calculated DeMeester Score: 3.2 Day Two Calculated DeMeester Score: 2.1 Lebqh-Tmyvj-Kntj DeMeester Score (Total): 2.7 During this recording period, the patient did not report any symptoms on his counseling specialist. IMPRESSION During this recording period, while the [...] and confirmed in chart. Questions addressed. Will proceed with planned surgery. MAMADOU Escobedo 02/28/2017 Thoracic Surgery Service Pager [phone] documented in this encounter Miscellaneous Notes * Plan of Care - Isis Marquez RN [...] diet was advanced to full liquid. He ambulatedin the room and around the unit with mild increased pain. The LENDING ADVISOR was discontinued, pain controlledwith tylenol. Voiding adequately in urinal. Nata at [...] out of path CPG GOAL OUTCOME EVALUATION: * Initial Assessments - Mikayla Page RN - [...] Bed/bath second floor. Drive. 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 [address] [place], [place] [id number] Social & Family Supports/Community Resources: Nata Extended Emergency Contact Information Primary Emergency Contact: Nata Hussein Address: [address] [place] [address] Mobile Relation: Spouse Behavioral Health History: Denies Substance Use/Abuse: Denies smoking, alcohol use, and/or illicit drug use Other Pertinent/Service Specific Information: None Health/Prescription Coverage: Payor: GLORIA MARTIN / Plan: GLORIA MARTIN / Product Type: *No Product type* / Secondary Insurance: None Prescription Coverage: see above Preferred Pharmacy: Please use [facility] [address] [place] [address] AT [facility] [address] [facility] [address] [facility] [phone] Other: None Primary Care Provider: Dr. Zeynep MD [phone] Patient/Caregiver Goals of Treatment: Discharge home after swallow study completed. Potential Needs for Transition of Care: Rehab/SNF: NA Home Health: NA DME: NA Dialysis: NA Community Resources: pt is aware Transportation: /Sister, [place] Other: None Anticipated Barriers to Discharge/Special Considerations: No barriers anticipated. Plan: CM will maintain contact with patient & providers to coordinate any services needed for discharge. Mikayla Page, tape rules printing machine operator Pager [phone] * Plan of Care - Rolando Chaparro RN [...] for sensory deficits provided, if applicable: [X] Yes Lighting adjusted for tasks, nonskid socks when out of bed. CPG GOAL OUTCOME EVALUATION: Ongoing. Goal: Individualization & Mutuality Outcome: Ongoing (Interventions Implemented as Appropriate) 03/01/17403 Individualization Patient Specific Preferences Call me Pastrana Goal: Fall Prevention-Safe Patient Handling Outcome: Ongoing (Interventions Implemented as Appropriate) 02/28/17192903/01/17403 Restraint Interventions Safety Promotion/Fall Prevention -- safety round/check completed;nonskid shoes/slippers when out ofbed;activity supervised Rojo Fall Risk History of Falling [...] Pain Control/Comfort Level making progress toward outcome * Brief Op Note - Al Servin MD - 02/28/2017 12:14 PM EST Brief Operative Note Patient Name: Amanuel Hussein : [id number] MR#: [id number] Case Date: 02/28/2017 Surgeon: Surgeon(s) and Role: * Al Servin MD - Primary * Howard Escamilla PA - Physician Roentgenology Teacher * Yary Forbes PA - Physician Roentgenology Teacher Preoperative diagnosis: hiatal hernia with history of bleeding Postoperative diagnosis: sliding hiatal hernia Procedure(s) (LRB): ROBOT XI LAPAROSCOPIC PARAESOPHAGEAL HERNIA REPAIR W/FUNDOPLASTY,W/O MESH (WRVU 26.6) (N/A) MODIFIER ROBOT,DAVSABINAI XI (N/A) EGD, UPPER GI ENDOSCOPY (N/A) [...] to this patient.) Infection Bundle used? N/A * Op Note - Al Servin MD - 02/28/2017 12:11 PM EST [facility] Operative Note Patient Name: Amanuel Hussein : [id number] MR#: [id number] Case Date: 02/28/2017 Surgeon: Surgeon(s) and Role: * Al Servin MD - Primary * Howard Escamilla PA - Physician Roentgenology Teacher * Yary Forbes PA - Physician Roentgenology Teacher Preoperative diagnosis: hiatal hernia with history of [...] circumferentially dissected. The patient had a narrow J- shaped stomach. The short gastric vessels were taken down withthe vessel sealer. One of these vessels was incompletely sealed and there was bleeding from both the gastric and splenic side of the vessel. This was able to be controlled with bi-polar cautery. An attempt was made to pass the fundus posterior to the esophagus to create a Toupet fundoplication. Dueto the narrow fundus, this was difficult to pass and given his prior manometry I was concerned about making the wrap too tight. Consequently, I elected to perform an anterior Jacek fundoplication. The patient tolerated the procedure well. Anesthesia: General Estimated Blood [...] most recently in November of 2016. He has had no further episodes of bleeding since being restarted on his PPI.?He??does??have anemia, which is often associated with this problem. Today, we reviewed the resultsof his manometry confirming a hiatal hernia and also demonstrating 80% failed swallows. It is difficulty to know if this is related to his hiatal hernia or an intrinsic abnormality in the esophagus, or a combination of both. We??discussed the surgical correction of this problem with a minimally invasive hiatal hernia repair and given the results of manometry a partial??fundoplication. He has had numerous bleeding incidents over the last decade and this is likely related to mechanical irritationof the stomach. He had a negative pH Sommer test in 2012 at the time of one of these episodes, but was on a PPI at that time. ??I discussed his most recent EGD with Dr. 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 [...] the liver retractor and a 12 mm library circulation assistant port was placed in the right [...] dissected at the GE junction. A half-inch Hayley drain was placed around the distal esophagus and proximal stomach and this was retracted inferiorly. The distal esophagus was circumferentially dissected up into the mediastinum. Care was taken to avoid any injury to the anterior or posterior vagus nerves. Attention was taken off the [place] drain and there was approximately 3.5 to [...] in the supine position. The 12 mm library circulation assistant incision port was removed and the fascia was closed using the Sae-Yordy device with a 2-0 Vicryl suture. A final inspection of the abdomen demonstrated no evidence of any ongoing bleeding. The ports were removed under direct vision following desufflation of the abdomen. The 5 and 8 mm port sites were closed with 4-0 Monocryl. The library circulation assistant port incision was also closed with [...] entire procedure. I was assisted by Anton VELEZ, as no qualified resident was available. Infection Bundle used? See Brief Op note Al Servin MD 02/28/2017 documented in this encounter Plan of Treatment Upcoming Encounters Date Type Department Care Team (Late st Contact Info) Description 01/08/2024 1:45 PM EDT TH Visit (TeleHealth) Radiation Oncology at [address] [phone] Zahira Jaffe PA [facility] [place] [address] documented as of this encounter Procedures Procedure Name Priority Date/Time Associated Diagnosis Comments DRIVEMATIC MACHINE OPERATOR SCAN 03/02/2017 12:00 AM EST XR FLUORO BARIUM SWALLOW (SINGLE CONTRAST) Routine 03/01/2017 1:46 PM EST HEMOGRAM Routine 03/01/2017 4:55 AM EST BASIC METABOLIC PANEL (NON-FASTING) Routine 03/01/2017 4:55 AM EST XR CHEST ONE VIEW Routine 02/28/2017 12: 39 PM EST HEMOGRAM STAT 02/28/2017 12:19 PM EST DIFFERENTIAL, AUTOMATED STAT 02/29/20 17 12:19 PM EST CREATININE STAT 02/28/2017 12:19 PM EST CBC (WITH DIFF) STAT 02/28/2017 12:19 PM EST BUN STAT 02/28/2017 12:19 PM EST ELECTROLYTES PANEL STAT 02/28/2017 12 :19 PM EST BLOOD GAS 2 ARTERIAL Routine 02/28/2017 11:04 AM EST SURGICAL PATHOLOGY REPORT Routine 02/28/2017 9:57 AM EST SPECIMEN TO PATHOLOGY Routine 02/28/2017 9:57 AM EST BLOOD GAS 2 ARTERIAL Routine 02/28/2017 9:21 AM EST PREPARE RBC STAT 02/28/2017 9:05 AM EST ABORH RECHECK STATUS Routine 02/28/2017 7:52 AM EST ABO/RH TYPING Routine 02/28/2017 7:52 AM EST ANTIBODY SCREEN Routine 02/28/2017 7:52 AM EST TYPE AND SCREEN ([facility]/CGP/BROOK) Routine 02/28/2017 7:52 AM EST EGD, UPPER GI ENDOSCOPY (WRVU 2.09) Yes 02/28/2017 7:30 AM EST Paraesophageal hiatal hernia MODIFIER ROBOT,DAVINCI XI Yes 02/28/2017 7:30 AM EST Paraesophageal hiatal hernia ROBOT XI LAPAROSCOPIC PARAESOPHAGEAL HERNIA REPAIR W/FUNDOPLASTY,W/O MESH (WRVU 26.6) Yes 02/28/2017 7:30 AM EST Paraesophageal hiatal hernia POCT GLUCOSE Routine 02/28/2017 6:28 AM EST UPPER GI ENDOSCOPY Routine 02/28/2017 5: 54 AM EST Paraesophageal hiatal hernia documented in [...] Roc Alfaro at 03/16/2017 8:45 AM Al Servin MD IMG DX ORDERABLES * SCAN DOC: DRIVEMATIC MACHINE OPERATOR (03/02/2017 12:00 AM EST) Anatomical Region Laterality Modality Other Narrative 03/02/2017 12:00 AM EST Ordered by an unspecified provider. Scanning Provider MEDIA MGR SCAN EXT O RDR/RSLT * XR Fluoro Barium Swallow (03/01/2017 1:46 PM EST) Anatomical Region Laterality Modality N/A Radio Fluoroscop y Impressions 03/01/2017 4:37 PM EST 1. ??Postoperative changes consistent with hernia repair. 2. ??No evidence of leak. 3. ??Mild left lower lobe atelectasis. I have personally reviewed the image(s) and the residents interpretation and agree with the findings, Abdulkadir Vyas at 03/01/2017 4:37 PM Narrative 03/01/2017 4:37 PM EST EXAMINATION: XR FLUORO BARIUM SWALLOW CLINICAL HISTORY: POD1 s/p lap robotic paraesophageal hernia repair and anterior wrap. Evaluate for leak. TECHNIQUE: An upright oil scout radiograph was obtained. Single contrast esophagram was performed with water-soluble contrast (Omnipaque 300) with attention to the distal esophagus and gastroesophageal junction. Fluoroscopic spot films were obtained. The patient was imaged in the standing LPO ; 30 degree inclination LPO, supine and RPO; and steep LPO positions. Fluoro time: 0.1 minutes COMPARISON: Chest radiograph 02/28/2017. Preoperative barium swallow 12/08/2016 FINDINGS: Medical Equipment Repair Technician radiograph: There are streaky opacities at the medial left lung base, most consistent with atelectasis. The stomach is not distended. Nonobstructive bowel gas pattern within the visualized upper abdomen. No gross pneumoperitoneum. There is a smooth contoured narrowing of the distal esophagus proximal to the gastroesophageal junction and gastric fundus, consistent with postoperative changes status post paraesophageal hernia repair and anterior wrap. The gastroesophageal junction is positioned below the diaphragm. No hernia. No extraluminal contrast to suggest leak. Contrast passed promptly from the stomach into nondilated loops of small bowel. Procedure Note Abdulkadir Vyas MD - 03/01/2017 EXAMINATION: XR FLUORO BARIUM SWALLOW CLINICAL HISTORY: POD1 s/p lap robotic paraesophageal hernia repair andanterior wrap. Evaluate for leak. TECHNIQUE: An upright oil scout radiograph was obtained. Single contrast esophagram was performed with water-soluble contrast (Omnipaque 300) with attention tothe distal esophagus and gastroesophageal junction. Fluoroscopic spot filmswere obtained. The patient was imaged in the standing LPO ; 30 degreeinclination LPO, supine and RPO; and steep LPO positions. Fluoro time: 0.1 minutes COMPARISON: Chest radiograph 02/28/2017. Preoperative barium swallow 12/08/2016 FINDINGS: Medical Equipment Repair Technician radiograph: There are streaky opacities at the medial left lung base, most consistentwith atelectasis. The stomach is not distended. Nonobstructive bowel gas pattern within the visualized upper abdomen. No gross pneumoperitoneum. There is a smooth contoured narrowing of the distal esophagus proximal tothe gastroesophageal junction and gastric fundus, consistent withpostoperative changes status post paraesophageal hernia repair and anterior wrap. The gastroesophageal junction is positioned below the diaphragm. No hernia.No extraluminal contrast to suggest leak. Contrast passed promptly from thestomach into nondilated loops of small bowel. IMPRESSION 1. Postoperative changes consistent with hernia repair. 2. No evidence of leak. 3. Mild left lower lobe atelectasis. I have personally reviewed the image(s) and the residents interpretationand agree with the findings, Abdulkadir Vyas at 03/01/2017 4:37 PM Al Servin MD IMG FLUORO ORDERABL ES * (ABNORMAL) Basic Metabolic Panel (non-fasting) (03/01/2017 4:55 AM EST) Glucose Lvl 116 65 - 199 mg/dL [facility] Comment:Diabetes: >=200 mg/d L plus symptoms BUN 14 10 - 20 mg/dL [facility] Creatinine 0.87 0.80 - 1.50 mg/dL [facility] Sodium 138 135 - 145 mmol/L [facility] Potassium 3.8 3.5 - 5.0 mmol/L [facility] Comment: Please note: ??Patients with WBC >100,000 may have falsely elevated Potassium levels. ??For accurate Potassium quantification in these patients send serum separator tube (gold top) for subsequent determinations. ??Contact the Clinical Chemistry Laboratory if there are any questions. Chloride 103 98 - 107 mmol/L [facility] CO2 25 22 - 31 mmol/L [facility] Anion Gap 10 5 - 15 mmol/L [facility] Calcium 7.9(L) 8.5 - 10.5 mg/dL [facility] Estimated GFR >60 >=60 [facility] Comment: The reported eGFR should be multiplied by 1.2 for patients. The MDRD is not an appropriate measure of renal function for patients with body mass extremes or in patients with acute kidney failure. [email or web address] [email or web address] Blood specimen (specimen) 03/01/2017 4:55 AM EST 03/01/2017 5:18 AM EST Narrative Resulting Agency Comment Spec In Lab Al Servin MD CHEMISTRY ORDERABLE S [facility] [place] [address] * (ABNORMAL) Hemogram (03/01/2017 4:55 AM EST) WBC 9.4 4.0 - 9.5 x10(3)/mcL [facility] RBC 3.92(L) 4.58 - 5.54 x10(6)/[facility] Hemoglobin 12.6(L) 13.7 - 16.5 gm/dL [facility] Hematocrit 36.7(L) 40.5 - 48.5 % [facility] MCV 93.6(H) 82.9 - 93.1 fL [facility] MCH 32.1 27.5 - 32.1 pg [facility] MCHC 34.3 32.0 - 35.7 gm/dL [facility] Platelets 192 145 - 357 x10(3)/[facility] RDWSD 41.9 36.0 - 45.0 [facility] RDWCV 12.2 11.4 - 13.8 % [facility] MPV 9.0 7.6 - 12.9 [facility] nRBC % Auto 0.0 % [facility] nRBC Abs Auto 0.000 0.000 - 0.000 x10(3)/[facility] Blood specimen (specimen) 03/01/2017 4:55 AM EST 03/01/2017 5:18 AM EST Narrative Resulting Agency Comment Spec In Lab Al Servin MD HEMATOLOGY ORDERABL ES Performing Organization Address City/State/[facility] Co de Phone Number [facility] [place] [address] * XR Chest PA or AP 1 view (02/28/2017 12:39 PM EST) Anatomical Region Laterality Modality Chest N/A Digital Radiogra phy Impressions 02/28/2017 1:33 PM EST No pneumothorax. Possible small left pleural effusion. I have personally reviewed the image(s) and the residents interpretation and agree with the findings, Roc Alfaro at 02/28/2017 1:33 PM Narrative 02/28/2017 1:33 PM EST EXAMINATION: XR CHEST PA OR AP 1 VIEW CLINICAL HISTORY: s/p robotic paraesophageal hernia repair, r/o PTX TECHNIQUE: AP semiupright view of the chest COMPARISON: Radiograph 11/28/2016 FINDINGS: Lung volumes are low, accentuating heart size and pulmonary vasculature. Blunting of the left costophrenic angle may indicate atelectasis or trace pleural effusion. No focal consolidation or pneumothorax. Cardiomediastinal silhouette is unchanged allowing for differences in technique and inspiration. Procedure Note Roc Alfaro MD - 02/28/2017 EXAMINATION: XR CHEST PA OR AP 1 VIEW CLINICAL HISTORY: s/p robotic paraesophageal hernia repair, r/o PTX TECHNIQUE: AP semiupright view of the chest COMPARISON: Radiograph 11/28/2016 FINDINGS: Lung volumes are low, accentuating heart size and pulmonary vasculature. Blunting of the left costophrenic angle may indicate atelectasis ortrace pleural effusion. No focal consolidation or pneumothorax.Cardiomediastinal silhouette is unchanged allowing for differences in technique andinspiration. IMPRESSION No pneumothorax. Possible small left pleural effusion. I have personally reviewed the image(s) and the residents interpretationand agree with the findings, Roc Alfaro at 02/28/2017 1:33 PM Al Servin MD IMG DX ORDERABLES * (ABNORMAL) Differential, Automated (02/28/2017 12:19 PM EST) Neutrophils % 90.3 % [facility] Neutr Abs (ANC) 10.11(H) 1.70 - 6.10 x10(3)/mc L [facility] Lymphocytes % 5.0 % [facility] Lymphocytes Abs 0.6(L) 0.9 - 3.2 x10(3)/mc L [facility] Monocytes % 3.3 % [facility] Monocyte Abs 0.4 0.3 - 0.9 x10(3)/mc L [facility] Eosinophils % 0.1 % [facility] Eosinophils Abs 0.0 0.0 - 0.4 x10(3)/[facility] Basophils % 0.3 % [facility] Basophils Abs 0.0 0.0 - 0.1 x10(3)/[facility] Immature Gran % 1.00 % [facility] Comment: Immature granulocytes(IG's)percentage and absolute count will include metamyelocytes, myelocytes, and promyelocytes. Blood smears from CBCs yielding IG's will be scanned manually for concordance. If this scan disagrees with the automated IG or if promyelocytes are noted, a manual differential will be performed. Malika Gran Abs 0.11(H) 0.00 - 0.04 x10(3)/[facility] Blood specimen (specimen) 02/28/2017 12:19 PM EST 02/28/2017 12:25 PM EST Narrative Resulting Agency Comment Spec In Lab Al Servin MD HEMATOLOGY ORDERABL ES Performing Organization Address City/State/[facility] Co de Phone Number [facility] [place] [address] * (ABNORMAL) Hemogram (02/28/2017 12:19 PM EST) WBC 11.2(H) 4.0 - 9.5 x10(3)/[facility] RBC 4.18(L) 4.58 - 5.54 x10(6)/[facility] Hemoglobin 13.6(L) 13.7 - 16.5 gm/dL [facility] Hematocrit 38.9(L) 40.5 - 48.5 % [facility] MCV 93.1 82.9 - 93.1 fL [facility] MCH 32.5(H) 27.5 - 32.1 pg [facility] MCHC 35.0 32.0 - 35.7 gm/dL [facility] Platelets 197 145 - 357 x10(3)/[facility] RDWSD 41.7 36.0 - 45.0 fL [facility] RDWCV 12.2 11.4 - 13.8 % [facility] MPV 8.6 7.6 - 12.9 fL [facility] nRBC % Auto 0.0 % [facility] nRBC Abs Auto 0.000 0.000 - 0.000 x10(3)/mcL [facility] Blood specimen (specimen) 02/28/2017 12:19 PM EST 02/28/2017 12:25 PM EST Narrative Resulting Agency Comment Spec In Lab Al Servin MD HEMATOLOGY ORDERABL ES Performing Organization Address [facility] de Phone Number [facility] [place] [address] * Creatinine (02/28/2017 12:19 PM EST) Creatinine 0.88 0.80 - 1.50 mg/dL [facility] Estimated GFR >60 >=60 [facility] Comment: The reported eGFR should be multiplied by 1.2 for patients. The MDRD is not an appropriate measure of renal function for patients with body mass extremes or in patients with acute kidney failure. [email or web address] [email or web address] Blood specimen (specimen) 02/28/2017 12:19 PM EST 02/28/2017 12:25 PM EST Narrative Resulting Agency Comment Spec In Lab Al Servin MD CHEMISTRY ORDERABLE S Performing Organization Address [facility] Co de Phone Number [facility] [place] [address] * BUN (02/28/2017 12:19 PM EST) BUN 12 10 - 20 mg/dL [facility] Blood specimen (specimen) 02/28/2017 12:19 PM EST 02/28/2017 12:25 PM EST Narrative Resulting Agency Comment Spec In Lab Al Servin MD CHEMISTRY ORDERABLE S Performing Organization Address City/[facility]/ZIP Co de Phone Number [facility] [place] [address] * Electrolytes panel (02/28/2017 12:19 PM EST) Sodium 140 135 - 145 mmol/L [facility] Potassium 3.8 3.5 - 5.0 mmol/L [facility] Comment: Please note: ??Patients with WBC >100,000 may have falsely elevated Potassium levels. ??For accurate Potassium quantification in these patients send serum separator tube (gold top) for subsequent determinations. ??Contact the Clinical Chemistry Laboratory if there are any questions. Chloride 104 98 - 107 mmol/L [facility] CO2 25 22 - 31 mmol/L [facility] Anion Gap 11 5 - 15 mmol/L [facility] Blood specimen (specimen) 02/28/2017 12:19 PM EST 02/28/2017 12:25 PM EST Narrative Resulting Agency Comment Spec In Lab Al Servin MD CHEMISTRY ORDERABLE S Performing Organization Address [facility] Co de Phone Number [facility] [place] [address] * (ABNORMAL) BLOOD GAS 2 ARTERIAL (02/28/2017 11:04 AM EST) pH Art 7.34(L) 7.35 - 7.45 [facility] pCO2 Art 45 35 - 45 mmHg [facility] pO2 Art 194(H) 85 - 104 mmHg [facility] HCO3 Art 23.4 20.0 - 26.0 mmol/L [facility] BE Art -2.4 -3.0 - 3.0 mmol/L [facility] Hgb Blood Gas 14.1 13.7 - 16.5 gm/dL [facility] O2HB Art 98.2(H) 94.0 - 97.0 % [facility] COHB Art 0.7 % [facility] Comment: Nonsmokers: 0.5-1.5% COHB Smokers: Variable, but usually less than 10% Toxic: 20-30% COHB Lethal: Greater than 60% COHB METHB Art 0.3 <=1.5 % [facility] Na Whole Blood 136 135 - 145 mmol/L [facility] K Whole Blood 4.1 3.5 - 5.0 mmol/L [facility] Comment: Please note: Patients with WBC >100,000 may have falsely elevated Potassium levels. Contact the Clinical Chemistry Laboratory if there are any questions. ICa Whole Blood 1.13(L) 1.15 - 1.33 mmol/L [facility] Comment: Note: ??Total bilirubin higher than 20 mg/dL may lead to falsely low ionized calcium. CL Whole Blood 105 98 - 107 mmol/L [facility] Gluc Whole Bld 161 65 - 199 mg/dL [facility] Comment:Diabetes: >=200 mg/d L plus symptoms. Lactate WB 2.1 0.5 - 2.2 mmol/L [facility] Blood specimen (specimen) 02/28/2017 11:04 AM EST 02/28/2017 11:04 AM EST Al Servin MD CHEMISTRY ORDERABLE S [facility] [place] [address] * Surgical Pathology Report (02/28/2017 9:57 AM EST) Surgical Pathology Report [id number] ? Location: [facility]; [facility]; A The signing pathologist has (i) examined the relevant preparation(s) for the specimen(s) and (ii) rendered or confirmed the diagnosis(es). . ?Surgical Pathology DIAGNOSIS Gastroesophageal fat pad, biopsy: Benign fibroadipose tissue with one reactive lymph node. Electronically signed by: ??Gerard PEREZ, [place] Verified: ??03/05/2017 ?Pathologist Performed at: ??-[facility] Dept. of Pathology, [place], [place] CLINICAL INFORMATION Specimen Submitted: A - Gastroesophageal fat pad Clinical History: Hiatal hernia with history of bleeding Clinical Diagnosis: Same SPECIMEN PROCESSING A - ??Labeled/Fixative: Gastroesophageal fat pad, fresh. Quantity/Size: Single, 2.3 x 2.9 x 0.8 cm. Tissue Description: Ovoid portion of tse-pink fibrofatty tissue with evidence of cautery artifact. One side of the specimen is covered by pale pink, smooth, glistening serosa while the opposing side appears roughened. Sectioning reveals yellow lobular adipose tissue with no discrete lesions identified. Sections/Processing : The roughened surface is inked black. 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 (R1) ??cf [facility] 02/28/2017 9:57 AM EST Al Servin MD PATHOLOGY/CYTOLOGY ORDERABLES [facility] [place] [address] * Specimen to Pathology (surgical or derm) (02/28/2017 9:57 AM EST) AP Specimen 02/28/2017 9:57 AM EST 02/28/2017 9:57 AM EST Narrative [facility] - 02/28/2017 9:57 AM EST Specimen requisition ordered. ??Separate Pathology report to follow Al Servin MD PATHOLOGY/CYTOLOGY ORDERABLES Performing Organization Address City/[facility]/ZIP Co de Phone Number [facility] [place] [address] * (ABNORMAL) BLOOD GAS 2 ARTERIAL (02/28/2017 9:21 AM EST) pH Art 7.31(L) 7.35 - 7.45 [facility] pCO2 Art 48(H) 35 - 45 mmHg [facility] pO2 Art 182(H) 85 - 104 mmHg [facility] HCO3 Art 23.4 20.0 - 26.0 mmol/L [facility] BE Art -2.9 -3.0 - 3.0 mmol/L [facility] Hgb Blood Gas 13.4(L) 13.7 - 16.5 gm/dL [facility] O2HB Art 98.3(H) 94.0 - 97.0 % [facility] COHB Art 0.4 % [facility] Comment: Nonsmokers: 0.5-1.5% COHB Smokers: Variable, but usually less than 10% Toxic: 20-30% COHB Lethal: Greater than 60% COHB METHB Art 0.3 <=1.5 % [facility] Na Whole Blood 139 135 - 145 mmol/L [facility] K Whole Blood 4.2 3.5 - 5.0 mmol/L [facility] Comment: Please note: Patients with WBC >100,000 may have falsely elevated Potassium levels. Contact the Clinical Chemistry Laboratory if there are any questions. ICa Whole Blood 1.15(L) 1.15 - 1.33 mmol/L [facility] Comment: Note: ??Total bilirubin higher than 20 mg/dL may lead to falsely low ionized calcium. CL Whole Blood 105 98 - 107 mmol/L [facility] Gluc Whole Bld 155 65 - 199 mg/dL [facility] Comment:Diabetes: >=200 mg/d L plus symptoms. Lactate WB 2.3(H) 0.5 - 2.2 mmol/L [facility] Blood specimen (specimen) 02/28/2017 9:21 AM EST 02/28/2017 9:21 AM EST Al Servin MD CHEMISTRY ORDERABLE S [facility] [place] [address] * Prepare RBC (02/28/2017 9:05 AM EST) Dispensed? Yes [facility] Blood specimen (specimen) 02/28/2017 9:05 AM EST 02/28/2017 9:02 AM EST Narrative Resulting Agency Comment Spec In Lab Al Servin MD BLOOD BANK PRODUCT ORDERABLES Performing Organization Address City/[facility]/ZIP Co de Phone Number [facility] [place] [address] * ABORH Recheck Status (02/28/2017 7:52 AM EST) ABORH Recheck Order Order Placed [facility] ABORH Type Recheck Complete [facility] Blood specimen (specimen) 02/28/2017 7:52 AM EST 02/28/2017 8:38 AM EST Narrative Resulting Agency Comment Spec In Lab Al Servin MD BLOOD BANK LAB ORDE RABRAMÍREZ Performing Organization Address City/[facility]/ZIP Co de Phone Number [facility] [place] [address] * Antibody screen (02/28/2017 7:52 AM EST) Ab Screen Interp Negative [facility] Expires at [id number] on: 03/03/2017 [facility] Blood specimen (specimen) 02/28/2017 7:52 AM EST 02/28/2017 8:38 AM EST Narrative Resulting Agency Comment Spec In Lab Al Servin MD BLOOD BANK LAB ORDE PATY Performing Organization Address City/[facility]/ZIP Co de Phone Number [facility] [place] [address] * ABO/Rh Typing (02/28/2017 7:52 AM EST) ABORH Type B Pos [facility] Blood specimen (specimen) 02/28/2017 7:52 AM EST 02/28/2017 8:38 AM EST Narrative Resulting Agency Comment Spec In Lab Al Servin MD BLOOD BANK LAB ROSEMARY NEWMAN [facility] [place] [address] * POCT Glucose (02/28/2017 6:28 AM EST) POC Glucose 98 65 - 199 mg/dL [facility] Comment: Supplemental ranges: <140 mg/dL before meals <180 mg/dL all other times of the day Blood specimen (specimen) 02/28/2017 6:28 AM EST 02/28/2017 6:28 AM EST Al Servin MD POINT OF CARE TEST ORDERABLES Performing Organization Address City/[facility]/ZIP Co de Phone Number [facility] [place] [address] documented in this encounter Visit Diagnoses Diagnosis [...] Date Dose Rate Site acetaminophen (TYLENOL) 650 mg/20.3 mL oral liquid 1,000 mg 1,000 mg, Oral, EVERY 6 HOURS, First dose on Sun02/28/17 at 1245, Until Discontinued, Maximum dose of acetaminophen is 4000 mg from all sources in 24 hours. , Routine Given 03/01/2017 12:42 PM EST 1,000 mg Given 03/01/2017 6:44 AM EST 1,000 mg enoxaparin (LOVENOX) injection 40 mg 40 mg, Subcutaneous, NIGHTLY, First dose on Sun02/28/17 at 2100, Until Discontinued, Routine Given 02/28/2017 8:33 PM EST 40 mg HYDROmorphone (DILAUDID) 1 mg/mL LENDING ADVISOR 50 mL Intravenous, LENDING ADVISOR ONLY, Starting on Sun02/28/17 at 1515, Until Claudia 17 at 0743 New Syringe/Cartridge 02/28/2017 3:35 PM EST 50 mg iohexol (OMNIPAQUE) 300 mg/mL solution 50 mL 50 mL, Oral, ONCE, 1 dose, On Sun03/01/17 at 1415, Warning Vesicant/Irritant Medication , Routine Given 03/01/2017 2:15 PM EST 50 mLs lactated Ringers infusion 100 mL/hr, Intravenous, CONTINUOUS, Starting on Sun02/28/17 at 1245, Until Sun03/01/17 at 2038, Recovery (Recovery-Hospital Unit) New Bag 03/01/2017 9:57 AM EST 100 mL/hr 100 mL/hr New Bag 02/28/2017 11:56 PM EST 100 mL/hr 100 mL/hr Continued Bag 02/28/2017 2:24 PM EST 100 mL/hr 100 mL/hr lidocaine (XYLOCAINE) 10 mg/mL (1 %) injection 3 mg 3 mg (0.3 mL), Subcutaneous, ONCE PRN, 1 dose, Starting on Sun02/28/17 at 1428, Until Sun03/01/17 at 2038, for discomfort with PIV insertion, Recovery (Recovery-Hospital Unit), Routine oxyCODONE (ROXICODONE) 5 mg/5 mL solution 5 mg 5 mg, Oral, EVERY 4 HOURS PRN, Starting on Sun03/01/17 at 0744, Until Sun03/01/17 at 2038, Pain, Routine pantoprazole (PROTONIX) injection 40 mg 40 mg, Intravenous, DAILY, First dose on Sun02/28/17 at 1700, Until Discontinued Given 03/01/2017 8:33 AM EST 40 mg Given 02/28/2017 5:06 PM EST 40 mg senna (SENOKOT) tablet 17.2 mg 17.2 mg, Oral, EVERY EVENING, First dose on Sun03/01/17 at 1700, Until Discontinued, Routine Given 03/01/2017 5:03 PM EST 17.2 mg sodium chloride 0.9 % flush 5 mL 5 mL, Intravenous, 2 TIMES DAILY, First dose on Sun02/28/17 at 1445, Until Discontinued, Recovery (Recovery-Hospital Unit), Routine Given 03/01/2017 8:33 AM EST 1 0 mLs Given 02/28/2017 2:29 PM EST 5 mLs sodium chloride 0.9 % flush 5-20 mL 5-20 mL, Intravenous, EVERY 1 MIN PRN, Starting on Sun02/28/17 at 1428, Until Claudia 03/01/17 at 203, flush, Flush pertains to all indwelling lines. Flush per protocol found in the job aid using the link provided on this medication record., Recovery (Recovery-Hospital Unit), Routine documented in this encounter Active and Recently Administered Medications Times are shown in EST. Scheduled Medication Order 02/27/2017 02/28/2017 03/01/2017 acetaminophen (TYLENOL) 650 mg/20.3 mL oral liquid 1,000 mg 1,000 mg, Oral, EVERY 6 HOURS, First dose on Sun02/28/17 at 1245, Until Discontinued, Maximum dose of acetaminophen is 4000 mg from all sources in 24 hours. , Routine 1434 (Canceled Entry - Provider: Isis Marquez RN - Reason: Patient not available - Comment: pt in PACU - documented in error)1845 (Not Given - Provider: Isis Marquez RN - Reason: Patient/family refused) 0045 (Not Given - Provider: Rolando Chaparro RN - Reason: Patient/family refused)0644 (Given - Provider: Rolando Chaparro RN)1242 (Given - Provider: Isis Marquez RN) ceFAZolin (ANCEF) 2g in dextrose 5% 100 mL (COMPLETED) 2 g, Intravenous, EVERY 3 HOURS, 1 dose, First dose on Sun02/28/17 at 0630, Administer over 30 Minutes, Intra-Operative (Intra-Procedure), Indication for (Active or Suspected): Prophylaxis 0748 (Given - Provider: Tracie Jaramillo CRNA)1048 (Given - Provider: Tracie Jaramillo CRNA) enoxaparin (LOVENOX) injection 40 mg 40 mg, Subcutaneous, NIGHTLY, First dose on Sun02/28/17 at 2100, Until Discontinued, Routine 2032 (Given - Provider: Rolando Chaparro RN) heparin (Porcine) subcutaneous injection 5,000 Units (COMPLETED) 5,000 Units, Subcutaneous, CLINICAL PRACTICE CONSULTANT TO O.R., 1 dose, On Sun02/28/17 at 0645, Routine 0749 (Given - Provider: Marcos Andino MD) iohexol (OMNIPAQUE) 300 mg/mL solution 50 mL (COMPLETED) 50 mL, Oral, ONCE, 1 dose, On Claudia 03/01/17 at 1415, Warning Vesicant/Irritant Medication , Routine 1415 (Given - Provid er: Britany Alfonso Catjoao - Comment: omni [id number] sep 06 2019) pantoprazole (PROTONIX) injection 40 mg 40 mg, Intravenous, DAILY, First dose on Sun02/28/17 at 1700, Until Discontinued 1706 (Given - Provider: Isis Marquez RN) 0833 (Given - Provider: Isis Marquez RN) senna (SENOKOT) tablet 17.2 mg 17.2 mg, Oral, EVERY EVENING, First dose on Claudia 03/01/17 at 1700, Until Discontinued, Routine 1703 (Given - Provid er: Isis Marquez RN) sodium chloride 0.9 % flush 5 mL 5 mL, Intravenous, 2 TIMES DAILY, First dose on Sun02/28/17 at 1445, Until Discontinued, Recovery (Recovery-Hospital Unit), Routine 142 (Given - Provider: Isis Marquez RN)2034 (Not Given - Provider: Rolando Chaparro RN - Reason: See comment - Comment: infusing, no sx of infiltration.) 0833 (Given - Provider: Issi Marquez RN) Continuous Medication Order 02/27/2017 02/28/2017 03/01/2017 HYDROmorphone (DILAUDID) 1 mg/mL LENDING ADVISOR 50 mL (CANCELED) Intravenous, LENDING ADVISOR ONLY, Starting on Sun02/28/17 at 1515, Until Claudia 03/01/17 at 0743 1535 (New Syringe/Cartridge - Provider: Isis Marquez RN) 0900 (Stopped - Provider: Isis Marquez RN) lactated Ringers infusion 100 mL/hr, Intravenous, CONTINUOUS, Starting on Sun02/28/17 at 1245, Until Claudia 03/01/17 at 2038, Recovery (Recovery-Hospital Unit) 1424 (Continued Bag - Provider: Robina Lemus RN)2356 (New Bag - Provider: Rolando Chaparro RN) 0973 (New Bag - Provider: Isis Marquez RN) PRN Medication Order 02/27/2017 02/28/2017 03/01/2017 BUpivacaine (PF) (MARCAINE) 0.5 % (5 mg/mL) injection (CANCELED) ONCE PRN, Starting on Sun02/28/17 at 0836, Until Claudia 03/01/17 at 2038, Intra-Operative (Intra-Procedure), Routine 0836 (Given - Provider: Luis Fernando Servin ph D, MD) lidocaine (XYLOCAINE) 10 mg/mL (1 %) injection 3 mg 3 mg (0.3 mL), Subcutaneous, ONCE PRN, 1 dose, Starting on Sun02/28/17 at 1428, Until Claudia 03/01/17 at 2037, for discomfort with PIV insertion, Recovery (Recovery-Hospital Unit), Routine lidocaine (XYLOCAINE) 10 mg/mL (1 %) injection (CANCELED) ONCE PRN, Starting on Sun02/28/17 at 0836, Until Claudia 03/01/17 at 203, Intra-Operative (Intra-Procedure), Routine 0836 (Given - Provider: Luis Fernando Servin ph D, MD) oxyCODONE (ROXICODONE) 5 mg/5 mL solution 5 mg 5 mg, Oral, EVERY 4 HOURS PRN, Starting on Claudia 03/01/17 at 0744, Until Claudia 03/01/17 at 2038, Pain, Routine sodium chloride 0.9 % flush 5-20 mL 5-20 mL, Intravenous, EVERY 1 MIN PRN, Starting on Sun02/28/17 at 1428, Until Claudia 03/01/17 at 2037, flush, Flush pertains to all indwelling lines. Flush per protocol found in the job aid using the link provided on this medication record., Recovery (Recovery-Hospital Unit), Routine documented in this encounter Care Teams [employer] Relationship Specialty Start Date End Date Clara Wood MD Ebony [address] [place] [address] PCP - General Family Medicine 01/26/17 documented as of this encounter
--- OUTSIDE RECORDS SUMMARY | 2023-10-11 01:50 | XMS_ITS | Encounter Summary ---
Author Organization Formerly [facility] [place] [address] Care Team Providers Care Press Supervisor Name Role Phone Clara Wood MD Primary Care Provider Reason for Visit * Auth/Cert Specialty Diagnoses / Procedures Referred By Lobo dean Referred To Contact Diagnoses Diaphragmatic hernia without obstruction or gangrene hiatal hernia with history of bleeding Procedures PRO LAPAROSCOPY, SURG, REPAIR PARAESOPHAGEAL HERNIA, W/O IMPLANTATION OF MESH LAPAROSCOPIC PARAESOPHAGEAL HERNIA REPAIR W/FUNDOPLASTY, W/O MESH (WRVU 26.6) Referral ID Status Reason Start Date Expiration Date Visits Re quested Visits Authorized [id number] 1 1 Encounter Details Date Type Department Care Team (Late st Contact Info) Description 02/28/2017 7:30 AM EST - 02/28/2017 10:58 AM EST [place] [id number] Al Servin MD [facility] [place] [address] ROBOT XI LAPAROSCOPIC PARAESOPHAGEAL HERNIA REPAIR W/FUNDOPLASTY,W/O MESH (WRVU 26.6) Social History Tobacco Use Types Packs/Day Years [...] * Al Servin MD - Primary * Hwoard Escamilla PA - Physician Production Editor * Yary Forbes PA - Physician Production Editor Procedure: Procedure(s) with comments: ROBOT XI LAPAROSCOPIC [...] Hospital Course: Amanuel Hussein was admitted to [facility] on 02/28/2017 via the Same Day [...] a nurse in the Thoracic Clinic at [phone]. After hours or on weekends or holidays please call: [phone] and ask to speak to the Thoracic [...] the Thoracic Clinic or the Thoracic Surgeon construction equipment operator after hours. Sleep: Try to establish [...] Information: Primary Care Provider: Clara Wood MD [phone] Discharge References/Attachments: Discharge References/Attachments None For questions [...] a nurse in the Thoracic Clinic at [phone]. After hours or on weekends or holidays please call: [phone] and ask to speak to the Thoracic [...] the Thoracic Clinic or the Thoracic Surgeon construction equipment operator after hours. Sleep: Try to establish [...] follow upappointment in 2 weeks. Pt understood. Construction Equipment Operator emphasized the importance of no carbonated beverages and no straw use and why. Pt understood. Construction Equipment Operator and pt discussed both diets and foods/ [...] SOB, abdominal pain. Pain well controlled with STRAIGHT LINE PRESS SETTER, offers no complaints O: Temp: [36.2 ??C [...] recovering well - pain well controlled with STRAIGHT LINE PRESS SETTER - hemodynamically stable - UOP adequate, has [...] [place]2012 [place] [facility]. Normal colonoscopy 11/2012 ? Sommer pH [place] 11[place]2012 [place] [facility] [place]: Calculated DeMeester Score (normal values are up to 14.72) Day One Calculated DeMeester Score: 3.2 Day Two Calculated DeMeester Score: 2.1 Awvfl-Vlhap-Jqxt DeMeester Score (Total): 2.7 During this recording period, the patient did not report any symptoms on his eye specialist. IMPRESSION During this recording period, while [...] MAMADOU Escobedo 02/28/2017 Thoracic Surgery Service Pager [phone] documented in this encounter Miscellaneous Notes * [...] the unit with mild increased pain. The STRAIGHT LINE PRESS SETTER was discontinued, pain controlledwith tylenol. Voiding adequately [...] rail. Bed/bath second floor. Drive. 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 [address] [place] [address] Social & Family Supports/Community Resources: Nata Extended Emergency Contact Information Primary Emergency Contact: Nata Hussein Address: [address] [place] [address] Mobile Relation: Spouse Behavioral Health History: Denies Substance Use/Abuse: Denies smoking, alcohol use, and/or illicit drug use Other Pertinent/Service Specific Information: None Health/Prescription Coverage: Payor: GLORIA MARTIN / Plan: GLORIA MARTIN / Product Type: *No Product type* / Secondary Insurance: None Prescription Coverage: see above Preferred Pharmacy: Please use [facility] [address] [place] [address] RD AT [facility] [phone] [facility] [phone] Other: None Primary Care Provider: Dr. Zeynep MD [phone] Patient/Caregiver Goals of Treatment: Discharge home after swallow study completed. Potential Needs for Transition of Care: Rehab/SNF: NA Home Health: NA DME: NA Dialysis: NA Community Resources: pt is aware Transportation: /Sister, [place] Other: None Anticipated Barriers to Discharge/Special Considerations: No barriers anticipated. Plan: CM will maintain contact with patient & providers to coordinate any services needed for discharge. Mikayla Page, director of food and nutrition Pager [phone] * Plan of Care - Rolando Chaparro [...] Operative Note Patient Name: Amanuel Hussein : [id number] MR#: [id number] Case Date: 02/28/2017 Surgeon: Surgeon(s) and Role: * Al Servin MD - Primary * Howard Escamilla PA - Physician Production Editor * Yary Forbes PA - Physician Production Editor Preoperative diagnosis: hiatal hernia with history of [...] Bundle used? N/A * Op Note - lA Servin MD - 02/28/2017 12:11 PM EST [facility] [place] Note Patient Name: Amanuel Hussein : [id number] MR#: [id number] Case Date: 02/28/2017 Surgeon: Surgeon(s) and Role: * Al Servin MD - Primary * Howard Escamilla PA - Physician Production Editor * Yary Forbes PA - Physician Production Editor Preoperative diagnosis: hiatal hernia with history of [...] the liver retractor and a 12 mm physical therapy assistant port was placed in the right [...] dissected at the GE junction. A half-inch [place] drain was placed around the distal esophagus and proximal stomach and this was retracted inferiorly. The distal esophagus was circumferentially dissected up into the mediastinum. Care was taken to avoid any injury to the anterior or posterior vagus nerves. Attention was taken off the [place] drain and there was approximately 3.5 to [...] in the supine position. The 12 mm physical therapy assistant incision port was removed and the fascia was closed using the Sae-Yordy device with a 2-0 Vicryl suture. A final inspection of the abdomen demonstrated no evidence of any ongoing bleeding. The ports were removed under direct vision following desufflation of the abdomen. The 5 and 8 mm port sites were closed with 4-0 Monocryl. The physical therapy assistant port incision was also closed with [...] procedure. I was assisted by Anton Palacios [facility], as no qualified resident was available. Infection Bundle used? See Brief Op note Al Servin MD 02/28/2017 documented in this encounter Plan of Treatment Upcoming Encounters Date Type Department Care Team (Late st Contact Info) Description 01/08/2024 1:45 PM EDT TH Visit (TeleHealth) Radiation Oncology at [address] [phone] Zahira Jaffe PA [facility] [place] [address] documented as of this encounter Procedures Procedure Name Priority Date/Time Associated Diagnosis Comments BACKGROUND INVESTIGATOR SCAN 03/02/2017 12:00 AM EST XR FLUORO [...] 02/28/2017 7:52 AM EST TYPE AND SCREEN ([facility] [place] [place] Routine 02/28/2017 7:52 AM EST EGD, UPPER [...] MD IMG DX ORDERABLES * SCAN DOC: BACKGROUND INVESTIGATOR (03/02/2017 12:00 AM EST) Anatomical Region Laterality [...] wrap. Evaluate for leak. TECHNIQUE: An upright picker and packer radiograph was obtained. Single contrast esophagram was performed with water-soluble contrast (Omnipaque 300) with attention to the distal esophagus and gastroesophageal junction. Fluoroscopic spot films were obtained. The patient was imaged in the standing LPO ; 30 degree inclination LPO, supine and RPO; and steep LPO positions. Fluoro time: 0.1 minutes COMPARISON: Chest radiograph 02/28/2017. Preoperative barium swallow 12/08/2016 FINDINGS: Cotton Bag Clipper radiograph: There are streaky opacities at the [...] wrap. Evaluate for leak. TECHNIQUE: An upright picker and packer radiograph was obtained. Single contrast esophagram was performed with water-soluble contrast (Omnipaque 300) with attention tothe distal esophagus and gastroesophageal junction. Fluoroscopic spot filmswere obtained. The patient was imaged in the standing LPO ; 30 degreeinclination LPO, supine and RPO; and steep LPO positions. Fluoro time: 0.1 minutes COMPARISON: Chest radiograph 02/28/2017. Preoperative barium swallow 12/08/2016 FINDINGS: Cotton Bag Clipper radiograph: There are streaky opacities at the [...] Glucose Lvl 116 65 - 199 mg/dL [facility] Comment:Diabetes: >=200 mg/d L plus symptoms BUN 14 10 - 20 mg/dL [facility] Creatinine 0.87 0.80 - 1.50 mg/dL [facility] Sodium 138 135 [...] questions. Chloride 103 98 - 107 mmol/L [facility] CO2 25 22 - 31 mmol/L [facility] Anion Gap 10 5 - 15 mmol/L [facility] Calcium 7.9(L) 8.5 - 10.5 mg/dL [facility] Estimated GFR >60 >=60 [facility] Comment: The reported eGFR should be multiplied by 1.2 for patients. The MDRD is not an appropriate measure of renal function for patients with body mass extremes or in patients with acute kidney failure. http://BetterCloud.Kymab/DHnkdep http://BetterCloud.Kymab/DHMCnkf Blood specimen (specimen) 03/01/2017 4:55 AM EST 03/01/2017 5:18 AM EST Narrative Resulting Agency Comment Spec In Lab Al Servin MD CHEMISTRY ORDERABLE S [facility] [place] [address] * (ABNORMAL) Hemogram (03/01/2017 4:55 AM EST) WBC 9.4 4.0 - 9.5 x10(3)/[facility] RBC 3.92(L) 4.58 - 5.54 x10(6)/[facility] Hemoglobin 12.6(L) 13.7 - 16.5 gm/dL [facility] Hematocrit 36.7(L) 40.5 - 48.5 % [facility] MCV 93.6(H) 82.9 - 93.1 [facility] MCH 32.1 27.5 - 32.1 pg [facility] MCHC 34.3 32.0 - 35.7 gm/dL [facility] Platelets 192 145 - 357 x10(3)/[facility] RDWSD 41.9 36.0 - 45.0 [facility] RDWCV 12.2 11.4 - 13.8 % [facility] MPV 9.0 7.6 - 12.9 [facility] nRBC % Auto 0.0 % [facility] nRBC Abs Auto 0.000 0.000 - 0.000 x10(3)/[facility] Blood specimen (specimen) 03/01/2017 4:55 AM EST 03/01/2017 5:18 AM EST Narrative Resulting Agency Comment Spec In Lab Al Servin MD HEMATOLOGY ORDERABL ES Performing Organization Address City/State/[facility] Co de Phone Number [facility] [place] [address] * XR Chest PA or AP 1 [...] 12:19 PM EST) Neutrophils % 90.3 % [facility] Neutr Abs (ANC) 10.11(H) 1.70 - 6.10 x10(3)/mc L [facility] Lymphocytes % 5.0 % [facility] Lymphocytes Abs 0.6(L) 0.9 - 3.2 x10(3)/mc L [facility] Monocytes % 3.3 % [facility] Monocyte Abs 0.4 0.3 - 0.9 x10(3)/mc L [facility] Eosinophils % 0.1 % [facility] Eosinophils Abs 0.0 0.0 - 0.4 x10(3)/[facility] Basophils % 0.3 % [facility] Basophils Abs 0.0 0.0 - 0.1 x10(3)/[facility] Immature Gran % 1.00 % [facility] Comment: Immature granulocytes(IG's)percentage and absolute count will include metamyelocytes, myelocytes, and promyelocytes. Blood smears from CBCs yielding IG's will be scanned manually for concordance. If this scan disagrees with the automated IG or if promyelocytes are noted, a manual differential will be performed. Malika Gran Abs 0.11(H) 0.00 - 0.04 x10(3)/[facility] Blood specimen (specimen) 02/28/2017 12:19 PM EST 02/28/2017 12:25 PM EST Narrative Resulting Agency Comment Spec In Lab Al Servin MD HEMATOLOGY ORDERABL ES [facility] [place] [address] * (ABNORMAL) Hemogram (02/28/2017 12:19 PM EST) WBC 11.2(H) 4.0 - 9.5 x10(3)/[facility] RBC 4.18(L) 4.58 - 5.54 x10(6)/[facility] Hemoglobin 13.6(L) 13.7 - 16.5 gm/dL [facility] Hematocrit 38.9(L) 40.5 - 48.5 % [facility] MCV 93.1 82.9 - 93.1 fL [facility] MCH 32.5(H) 27.5 - 32.1 pg [facility] MCHC 35.0 32.0 - 35.7 gm/dL [facility] Platelets 197 145 - 357 x10(3)/[facility] RDWSD 41.7 36.0 - 45.0 [facility] RDWCV 12.2 11.4 - 13.8 % [facility] MPV 8.6 7.6 - 12.9 [facility] nRBC % Auto 0.0 % [facility] nRBC Abs Auto 0.000 0.000 - 0.000 x10(3)/[facility] Blood specimen (specimen) 02/28/2017 12:19 PM EST 02/28/2017 12:25 PM EST Narrative Resulting Agency Comment Spec In Lab Al Servin MD HEMATOLOGY ORDERABL ES Performing Organization Address [facility] Phone Number [facility] [place] [address] * Creatinine (02/28/2017 12:19 PM EST) Creatinine 0.88 0.80 - 1.50 mg/dL [facility] Estimated GFR >60 >=60 [facility] Comment: The reported eGFR should be multiplied by 1.2 for patients. The MDRD is not an appropriate measure of renal function for patients with body mass extremes or in patients with acute kidney failure. http://BetterCloud.Kymab/DHnkdep http://[employer]/DHMCnkf Blood specimen (specimen) 02/28/2017 12:19 PM EST 02/28/2017 12:25 PM EST Narrative Resulting Agency Comment Spec In Lab Al Servin MD CHEMISTRY ORDERABLE S Performing Organization Address [facility] Co de Phone Number [facility] [place] [address] * BUN (02/28/2017 12:19 PM EST) BUN 12 10 - 20 mg/dL [facility] Blood specimen (specimen) 02/28/2017 12:19 PM EST 02/28/2017 12:25 PM EST Narrative Resulting Agency Comment Spec In Lab Al Servin MD CHEMISTRY ORDERABLE S Performing Organization Address City/[facility] Co de Phone Number [facility] [place] [address] * Electrolytes panel (02/28/2017 12:19 PM EST) Sodium 140 135 - 145 mmol/L [facility] questions. Chloride 104 98 - 107 mmol/L [facility] CO2 25 22 - 31 mmol/L [facility] Anion Gap 11 5 - 15 mmol/L [facility] Blood specimen (specimen) 02/28/2017 12:19 PM EST 02/28/2017 12:25 PM EST Narrative Resulting Agency Comment Spec In Lab Al Servin MD CHEMISTRY ORDERABLE S Performing Organization Address [facility] Co de Phone Number [facility] [place] [address] * (ABNORMAL) BLOOD GAS 2 ARTERIAL (02/28/2017 11:04 AM EST) pH Art 7.34(L) 7.35 - 7.45 [facility] pCO2 Art 45 35 - 45 mmHg [facility] pO2 Art 194(H) 85 - 104 mmHg [facility] HCO3 Art 23.4 20.0 - 26.0 mmol/L [facility] BE Art -2.4 -3.0 - 3.0 mmol/L [facility] Hgb Blood Gas 14.1 13.7 - 16.5 gm/dL [facility] O2HB Art 98.2(H) 94.0 - 97.0 % [facility] COHB Art 0.7 % [facility] Comment: Nonsmokers: 0.5-1.5% COHB Smokers: Variable, but usually less than 10% Toxic: 20-30% COHB Lethal: Greater than 60% COHB METHB Art 0.3 <=1.5 % [facility] Na Whole Blood 136 135 - 145 mmol/L [facility] K Whole Blood 4.1 3.5 - 5.0 mmol/L [facility] Comment: Please note: Patients with WBC >100,000 may have falsely elevated Potassium levels. Contact the Clinical Chemistry Laboratory if there are any questions. ICa Whole Blood 1.13(L) 1.15 - 1.33 mmol/L [facility] Comment: Note: ??Total bilirubin higher than 20 mg/dL may lead to falsely low ionized calcium. CL Whole Blood 105 98 - 107 mmol/L [facility] Gluc Whole Bld 161 65 - 199 mg/dL [facility] Comment:Diabetes: >=200 mg/d L plus symptoms. Lactate WB 2.1 0.5 - 2.2 mmol/L [facility] Blood specimen (specimen) 02/28/2017 11:04 AM EST 02/28/2017 11:04 AM EST Al Servin MD CHEMISTRY ORDERABLE S Performing Organization Address City/State/[facility] Co de Phone Number [facility] [place] [address] * Surgical Pathology Report (02/28/2017 9:57 AM EST) Surgical Pathology Report [id number] ? [facility]; A The signing pathologist has (i) examined the relevant preparation(s) for the specimen(s) and (ii) rendered or confirmed the diagnosis(es). . ?Surgical Pathology DIAGNOSIS Gastroesophageal fat pad, biopsy: Benign fibroadipose tissue with one reactive lymph node. Electronically signed by: ??Louisa Gee MD Verified: ??03/05/2017 ?Pathologist Performed at: ??-[facility] [place]. [place], [place], [place] CLINICAL INFORMATION Specimen Submitted: A - [...] The roughened surface is inked black. A b2b sales representative section is submitted. (R1) ??cf [facility] 02/28/2017 9:57 AM EST Al Servin MD PATHOLOGY/CYTOLOGY ORDERABLES Performing Organization Address [facility] Co de Phone Number [facility] [place] [address] * Specimen to Pathology (surgical or derm) (02/28/2017 9:57 AM EST) AP Specimen 02/28/2017 9:57 AM EST 02/28/2017 9:57 AM EST Narrative [facility] - 02/28/2017 9:57 AM EST Specimen requisition ordered. ??Separate Pathology report to follow Al Servin MD PATHOLOGY/CYTOLOGY ORDERABLES Performing Organization Address [facility] Co de Phone Number [facility] [place] [address] * (ABNORMAL) BLOOD GAS 2 ARTERIAL (02/28/2017 9:21 AM EST) pH Art 7.31(L) 7.35 - 7.45 [facility] pCO2 Art 48(H) 35 - 45 mmHg [facility] pO2 Art 182(H) 85 - 104 mmHg [facility] HCO3 Art 23.4 20.0 - 26.0 mmol/L [facility] BE Art -2.9 -3.0 - 3.0 mmol/L [facility] Hgb Blood Gas 13.4(L) 13.7 - 16.5 gm/dL [facility] O2HB Art 98.3(H) 94.0 - 97.0 % [facility] COHB Art 0.4 % [facility] Comment: Nonsmokers: 0.5-1.5% COHB Smokers: Variable, but usually less than 10% Toxic: 20-30% COHB Lethal: Greater than 60% COHB METHB Art 0.3 <=1.5 % [facility] Na Whole Blood 139 135 - 145 mmol/L [facility] K Whole Blood 4.2 3.5 - 5.0 mmol/L [facility] Comment: Please note: Patients with WBC >100,000 may have falsely elevated Potassium levels. Contact the Clinical Chemistry Laboratory if there are any questions. ICa Whole Blood 1.15(L) 1.15 - 1.33 mmol/L [facility] Comment: Note: ??Total bilirubin higher than 20 mg/dL may lead to falsely low ionized calcium. CL Whole Blood 105 98 - 107 mmol/L [facility] Gluc Whole Bld 155 65 - 199 mg/dL [facility] Comment:Diabetes: >=200 mg/d L plus symptoms. Lactate WB 2.3(H) 0.5 - 2.2 mmol/L [facility] Blood specimen (specimen) 02/28/2017 9:21 AM EST 02/28/2017 9:21 AM EST Al Servin MD CHEMISTRY ORDERABLE S [facility] [place] [address] * Prepare RBC (02/28/2017 9:05 AM EST) Dispensed? Yes [facility] Blood specimen (specimen) 02/28/2017 9:05 AM EST 02/28/2017 9:02 AM EST Narrative Resulting Agency Comment Spec In Lab Al Servin MD BLOOD BANK PRODUCT ORDERABLES Performing Organization Address City/[facility]/ZIP Co de Phone Number [facility] [place] [address] * ABORH Recheck Status (02/28/2017 7:52 AM EST) ABORH Recheck Order Order Placed [facility] ABORH Type Recheck Complete [facility] Blood specimen (specimen) 02/28/2017 7:52 AM EST 02/28/2017 8:38 AM EST Narrative Resulting Agency Comment Spec In Lab Al Servin MD BLOOD BANK LAB ORDE RABRAMÍREZ Performing Organization Address City/[facility]/ZIP Co de Phone Number [facility] [place] [address] * Antibody screen (02/28/2017 7:52 AM EST) Ab Screen Interp Negative [facility] Expires at [id number] on: 03/03/2017 [facility] Blood specimen (specimen) 02/28/2017 7:52 AM EST 02/28/2017 8:38 AM EST Narrative Resulting Agency Comment Spec In Lab Al Servin MD BLOOD BANK LAB ORDE RABRAMÍREZ Performing Organization Address City/[facility]/ZIP Co de Phone Number [facility] [place] [address] * ABO/Rh Typing (02/28/2017 7:52 AM EST) ABORH Type B Pos [facility] Blood specimen (specimen) 02/28/2017 7:52 AM EST 02/28/2017 8:38 AM EST Narrative Resulting Agency Comment Spec In Lab Al Servin MD BLOOD BANK LAB ROSEMARY NEWMAN [facility] [place] [address] * POCT Glucose (02/28/2017 6:28 AM EST) POC Glucose 98 65 - 199 mg/dL [facility] Comment: Supplemental ranges: <140 mg/dL before meals <180 mg/dL all other times of the day Blood specimen (specimen) 02/28/2017 6:28 AM EST 02/28/2017 6:28 AM EST Narrative Authorizing Provider Result Carissa Servin MD POINT OF CARE TEST ORDERABLES Performing Organization Address City/[facility]/ZIP Co de Phone Number [facility] [place] [address] documented in this encounter Visit Diagnoses Diagnosis [...] AM EST 1,000 mg BUpivacaine (PF) (MARCAINE) 0.5 % (5 mg/mL) injection ONCE PRN, Starting on Sun02/28/17 at 0836, Until Claudia 03/01/17 at 2038, Intra-Operative (Intra-Procedure), Routine Given 02/28/2017 8:36 AM EST 15 mLs 19- Surgical Site enoxaparin (LOVENOX) injection 40 mg 40 mg, Subcutaneous, NIGHTLY, First dose on Sun02/28/17 at 2100, Until Discontinued, Routine Given 02/28/2017 8:33 PM EST 40 mg lactated Ringers infusion 100 mL/hr, Intravenous, CONTINUOUS, Starting on Sun02/28/17 at 1245, Until Sun03/01/17 at 203, Recovery (Recovery-Hospital Unit) New Bag 03/01/2017 9:57 AM EST 100 mL/hr 100 mL/hr New Bag 02/28/2017 11:56 PM EST 100 mL/hr 100 mL/hr Continued Bag 02/28/2017 2:24 PM EST 100 mL/hr 100 mL/hr lidocaine (XYLOCAINE) 10 mg/mL (1 %) injection 3 mg 3 mg (0.3 mL), Subcutaneous, ONCE PRN, 1 dose, Starting on Sun02/28/17 at 1428, Until Sun03/01/17 at 203, for discomfort with PIV insertion, Recovery (Recovery-Hospital Unit), Routine lidocaine (XYLOCAINE) 10 mg/mL (1 %) injection ONCE PRN, Starting on Sun02/28/17 at 0836, Until Sun03/01/17 at 2037, Intra-Operative (Intra-Procedure), Routine Given 02/28/2017 8:36 AM EST 15 mLs 19- Surgical Site oxyCODONE (ROXICODONE) 5 mg/5 mL solution 5 [...] at 1428, Until Claudia 03/01/17 at 2038, flush, Flush pertains to all indwelling lines. [...] injection 5,000 Units (COMPLETED) 5,000 Units, Subcutaneous, JIGGER OPERATOR TO O.R., 1 dose, On Sun02/28/17 at 0645, Routine 0749 (Given - Provider: Marcos Andino MD) iohexol (OMNIPAQUE) 300 mg/mL solution 50 mL (COMPLETED) 50 mL, Oral, ONCE, 1 dose, On Claudia 03/01/17 at 1415, Warning Vesicant/Irritant Medication , Routine 1415 (Given - Provid er: Britany Orantes - Comment: omni [id number] sep 06 2019) pantoprazole (PROTONIX) injection 40 mg 40 mg, Intravenous, DAILY, First dose on Sun02/28/17 at 1700, Until Discontinued 170 (Given - Provider: Isis Marquez RN) 0833 (Given - Provider: Isis aMrquez RN) senna (SENOKOT) tablet 17.2 mg 17.2 mg, Oral, EVERY EVENING, First dose on Sun03/01/17 at 1700, Until Discontinued, Routine 1703 (Given - Provid er: Isis Marquez RN) sodium chloride 0.9 % flush 5 mL 5 mL, Intravenous, 2 TIMES DAILY, First dose on Sun02/28/17 at 1445, Until Discontinued, Recovery (Recovery-Hospital Unit), Routine 1429 (Given - Provider: Isis Marquez RN)2034 (Not Given - Provider: Rolando Chaparro RN - Reason: See comment - Comment: infusing, no sx of infiltration.) 0833 (Given - Provider: Isis Marquez RN) Continuous Medication Order 02/27/2017 02/28/2017 03/01/2017 HYDROmorphone (DILAUDID) 1 mg/mL STRAIGHT LINE PRESS SETTER 50 mL (CANCELED) Intravenous, STRAIGHT LINE PRESS SETTER ONLY, Starting on Sun02/28/17 at 1515, Until Cluadia 03/01/17 at 0743 1535 (New Syringe/Cartridge - Provider: Isis Marquez RN) 0900 (Stopped - Provider: Isis Marquez RN) lactated Ringers infusion 100 mL/hr, Intravenous, CONTINUOUS, Starting on Sun02/28/17 at 1245, Until Claudia 03/01/17 at 2037, Recovery (Recovery-Hospital Unit) 1424 (Continued Bag - Provider: Robina Lemus, RN)2356 (New Bag - Provider: Rolando Chaparro, ANA) 0957 (New Bag - Provider: Isis Marquez, ANA) PRN Medication Order 02/27/2017 02/28/2017 03/01/2017 BUpivacaine (PF) (MARCAINE) 0.5 % (5 mg/mL) injection (CANCELED) ONCE PRN, Starting on Sun02/28/17 at 0836, Until Claudia 03/01/17 at 2037, Intra-Operative (Intra-Procedure), Routine 08 (Given - Provider: Luis Fernando Servin ph [...] Claudia 03/01/17 at 2037, Intra-Operative (Intra-Procedure), Routine 0836 (Given - Provider: [...] Routine documented in this encounter Care Teams Press Supervisor Relationship Specialty Start Date End Date Clara Wood MD [address] [place] [address] PCP - General Family Medicine 01/26/17 documented as of this encounter
--- OUTSIDE RECORDS SUMMARY | 2023-10-11 01:50 | XMS_ITS | Encounter Summary ---
Author Organization [facility], Located Within [facility] [place] [address] Care Team Providers Care Film Touch Up Inspector Name Role Phone Marin Patton MD Primary Care Provider [phone] Reason for Visit * Reason Comments Peptic Ulcer Disease Encounter Details Date Type Department Care Team (Late st Contact Info) Description 12/08/2016 2:00 PM EDT Office [place] [address] Al Ortiz MD [facility] [place] [address] Hiatal hernia with GERD and esophagitis Social History Tobacco Use Types Packs/Day Years [...] 37.1 ??C (98.8 ??F) 12/08/2016 2:05 PM ED T Respiratory Rate 18 12/08/2016 2:05 PM EDT Oxygen Saturation 96% 12/08/2016 2:05 PM EDT Inhaled Oxygen Concentration - - Weight 95.3 kg (210 lb) 12/08/2016 2:05 PM EDT Height 175 cm (5' 8.9) 12/08/2016 2:05 PM EDT Body Mass Index 31.1 12/08/2016 2:05 PM EDT documented in this encounter Progress Notes * Al Ortiz MD - 12/08/2016 2:00 PM EDT Thoracic Surgery Attending Outpatient Consultation Note Al Ortiz MD [place], [place] [address] FAX: Referring Provider: [place] [address] Reason for Consultation: Bleeding ulcer in setting of hiatal hernia Today, 12/08/2016, I saw Mr. Hussein in [place] [facility] [place] consultation for either a Type I [...] on 11/21/16 and was seen at the [facility] ED and discharged. He was seen again on 11/26 and again sent home. I don't have any records from these visits. He was again seen on 11/28 secondary to weakness and was transferred to [facility] [place] bleeding. Work up here included an EGD, see below. He denies any history of dysphagia. He has not lost weight and food does not stick in his lower chest. He denies regurgitation, heartburn or water brash. He is currently eating a regular diet. He notes a history ofreflux for many years, but this seems to be asymptomatic. He has had no pneumonias. He denies fevers, night sweats, chest pain. He has had no prior treatments. On recent admission, hgb went from 14 to 11.8 and up to 13 without transfusion. A barium swallow on [...] histology. Estimated blood loss was minimal. The entireexamined stomach was normal. ?The examined duodenum was [...] reports from 08/2012 and 11/2012 here at [facility] [place] also reviewed. 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 IMPRESSION During this recording period, while the [...] past surgical history that includes Colonoscopy, Diagnostic (61351) (12/04/2012); Upper Gi Endoscopy, Biopsy (21939) (12/04/2012); and Upper Gi Endoscopy, Biopsy (02921) (N/A, 11/29/2016). He has a current medication [...] PPI followed by re-scoping to assess healing of his ulcer. He has, however, had numerous bleeding incidents over the last decade and this islikely related to mechanical irritation of the stomach. [...] GE junction. 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 We will get his manometry scheduled [...] or concerns, he should feel free to contact us. Al Ortiz MD 12/08/2016 documented in this encounter Plan of Treatment Upcoming Encounters Date Type Department Care Team (Late st Contact Info) Description 01/08/2024 1:45 PM EDT TH Visit (TeleHealth) Radiation Oncology at [address] [phone] Zahira Jaffe PA [facility] [address] [place] [address] documented as of this encounter Visit Diagnoses Diagnosis Hiatal hernia with GERD and esophagitis documented in this encounter Care Teams Film Touch Up Inspector Relationship Specialty Start Date End Date Marin Patton MD PCP - General 02/15/10 01/25/17 documented as of this encounter
--- OUTSIDE RECORDS SUMMARY | 2023-10-11 01:50 | XMS_ITS | Encounter Summary ---
Author Organization [facility] [place] [address] Care Team Providers Care Makeup Artistry Instructor Name Role Phone Marin Patton MD Primary Care Provider Encounter Details Date Type Department Care Team (Latest Contact Info) Description 12/19/2016 8:00 PM EDT Tech Visit [place] [address] Real Jones MD [facility] [address] [place] [address] Gastroesophageal reflux disease, esophagitis presence not specified Social History Tobacco Use Types Packs/Day Years [...] as of this encounter Progress Notes * Real Jones MD - 12/19/2016 8:00 PM EDT HIGH-RESOLUTION ESOPHAGEAL MANOMETRY Amanule Duncan Jovita [address] [facility] [place] [address] : 1955 STUDY DATE: 12-19-2016 PROVIDER: Real Jones, PhD, [place] ([id number]) INDICATION GERD METHODS Stationary esophageal manometry was [...] measured. Water swallows were provided after a 2-lb-6-minute accommodation period to assess LES function andfunction of the esophageal body. FINDINGS LES (lower [...] the esophagus best characterized as frequent failed peristalsisas only 2 [...] is required. *Measurements and diagnostic criteria per Delco 3.0 Classification. Real Jones, PhD, MD hat block maker, [employer] [employer] Chief, Section of Gastroenterology and Hepatology [facility] [place] [address] V: [phone] F: [phone] CC/EC: PCP documented in this encounter Plan of Treatment Upcoming Encounters Date Type Department Care Team (Late st Contact Info) Description 01/08/2024 1:45 PM EDT TH Visit (TeleHealth) Radiation Oncology at [address] [phone] Zahira Jaffe PA [facility] HEMATOLOGY [place] [address] documented as of this encounter Visit Diagnoses Diagnosis Gastroesophageal reflux disease, esophagitis presence not specified documented in this encounter Care Teams Makeup Artistry Instructor Relationship Specialty Start Date End Date Marin Patton MD PCP - General 02/15/10 01/25/17 documented as of this encounter
--- OUTSIDE RECORDS SUMMARY | 2023-10-11 01:50 | XMS_ITS | Encounter Summary ---
Author Organization [facility] [place] [address] Care Team Providers Care Spinneret Cleaner Name Role Phone Clara Wood MD Primary Care Provider [phone] Reason for Visit * Auth/Cert Specialty Diagnoses / Procedures Referred By Lobo dean Referred To Contact Diagnoses Diaphragmatic hernia without obstruction or gangrene hiatal hernia with history of bleeding Procedures PRO LAPAROSCOPY, SURG, REPAIR PARAESOPHAGEAL HERNIA, W/O IMPLANTATION OF MESH LAPAROSCOPIC PARAESOPHAGEAL HERNIA REPAIR W/FUNDOPLASTY, W/O MESH (WRVU 26.6) Referral ID Status Reason Start Date Expiration Date Visits Re quested Visits Authorized [id number] 1 1 Encounter Details Date Type Department Care Team (Late st Contact Info) Description 02/28/2017 7:28 AM EST Anesthesia Event [place] [address] Marcos Andino MD [facility] [place] [address] Anesthesia Record Procedure Summary Procedure Name Responsible Anesthesiologist Anesthesia Start Time Anesthesia Stop Time ROBOT XI LAPAROSCOPIC PARAESOPHAGEAL HERNIA REPAIR W/FUNDOPLASTY,W/O MESH (WRVU 26.6) Marcos Andino MD 02/28/17 0728 02/28/17 1211 Events Date Time Event Comment 02/28/2017 0652 0728 Start 0730 AN Verify 0734 An Start Data 0739 An Induction 0740 An Intubation 0742 Anesthesia Ready 0745 IV Start 0801 Procedure Start Surgery star t 0820 Quick Note Deploying robot 0859 Quick Note Sudden blood lo ss ~300 mL. Surgeon calling for assistance with bleeding. Anesthesia MD made aware and present at bedside. IVF wide open. Placing a-line. Preemptively calling to prepare PRBC. 0920 ABG Data Arterial Blood Gas result: pH 7.3 pCO2 48.1 pO2 181.6 %O2 Sat 99% FiO2 62% HCO3 23.4 BE -2.9 Hb 13.4 K 4.2 Glucose 155 Lactate 2.33 1044 Quick Note Surgeon perform ing EGD 1057 Quick Note Surgeon perform ing EGD 1107 ABG Data Arterial Blood Gas result: pH 7.338 pCO2 44.5 pO2 193.8 %O2 Sat 98.2 FiO2 55 HCO3 23.4 BE -2.4 Hb 14.1 K 4.08 Glucose 161 Lactate 2.14 1115 Quick Note Surgeon perform ing EGD 1122 Quick Note Un-docking robo t 1143 Bite Block In 1155 Procedure Stop 1204 Extubation/LMA Out Patient s pontaneously ventilating; adequate tidal volumes (650-800 mL); regular respiratory rate; neuromuscular function intact as evidence by sustained tetanus; following commands. Oropharynx suctioned. Extubated without issue to 6L/min O2 via face mask. VSS. 1205 an stop data 1210 Recovery or ICU Handoff Nataly ent care was transferred to the destination unit staff after review of the patient's medical history, current anesthetic/surgical status and plan, according to the Provider Handoff Checklist. 1211 Stop Patient respond s to stimulation. Spontaneous ventilation without issue. VSS. Full report given to NEONATAL NURSE PRACTITIONER. Meds Name Total Midazolam 2 mg fentaNYL 100 mcg IV Lidocaine 100 mg Propofol 200 mg Rocuronium 100 mg PHENYLephrine 1,020 mcg ePHEDrine 20 mg Ondansetron 4 mg Dexamethasone 4 mg Neostigmine 3 mg Glycopyrrolate 0.6 mg heparin (Porcine) subcutaneous injection 5,000 Units 5,000 Units ceFAZolin (ANCEF) 2g in dextrose 5% 100 mL 4 g Succinylcholine 120 mg PHENYLephrine INF 8,500 mcg HYDROmorphone 1.2 mg Lactated Ringers 1,000 mL Lactated Ringers 1,500 mL * Agents Name O2 Air N2O Sevoflurane (et) * Blood No blood administrations on file. Lines, Drains, and Airways Type Details Placement Removal (RETIRED) Peripheral IV Line - Single Lumen 02/28/17; 0632; metacarpal vein (top of hand), left; xrhk-wnd-ifmerh catheter system; 18 gauge, 1 in length; Alisia Hoffman RN; intradermal injection, distraction, tolerated well; 0; 03/01/17; 1729 02/28/17 0632 by Alisia Hoffman RN 03/01/17 172 by Joaquina Henry RN ETT Mask Ventilation: No t Attempted (0); ETT Type: Cuffed, Oral; ETT Size: 8 mm; Mac Blade: 3; Notes: Asleep, Pre-O2, RSI, Stylette; Attempts: 1; Laryngoscopy Grade: 1; ETT Placement Verified By: Auscultation, Capnometry; Secured at Teeth: 23 cm; Inserted by: Ella; Removal Date: 02/28/17; Removal Time: 1204 02/28/17 0740 by Marcos Andino MD 02/28/17 1204 by Tracie Franco CRNA (RETIRED) Peripheral IV Line - Single Lumen 02/28/17; 0745; metacarpal vein (top of hand), right; nhec-pho-vgkgbs catheter system; 18 gauge; S MARQUES Jaramillo; 0; 03/01/17; 17202/28/17 0745 by Marcos Andino MD 03/01/17 1729 by Joaquina Henry RN NG/OG Tube 02/28/17; 0750; nasogastric; 18 Fr; right nostril; maintained on intermittent suction; removed to suction; tubing intact; 02/28/17; 1139 02/28/17 0750 by Marcos Andino MD 02/28/17 1139 by Tracie Franco CRNA Urethral Catheter 02/28/17; 0810; Surg jackelin longer than 2 hours; Acute urinary retention; indwelling double lumen catheter; 14; inserted at this facility; 1; 10; 10; urethral catheter removed, per protocol/policy; 02/28/17; 1315 02/28/17 0810 by Mario Jaeger RN 02/28/17 1315 by Pamela Ruano RN Incision 02/28/17; 0811; (vicenta st, port sites x 6); 12/07/17; 1239 02/28/17 0811 by Mario Jaeger RN 12/07/17 1239 by Amaya Reyna RN Arterial Line 02/28/17; 0910; radi al artery, right; 20 gauge; Mandie Andino MD; Sterile Prep, Sterile Gloves; removed per policy; 02/28/17; 1305 02/28/17 0910 by Tracie Franco CRNA 02/28/17 1305 by Pamela Ruano RN documented in this encounter Social History [...] OR Notes * Anesthesia Postprocedure Evaluation - Marcos Andino MD - 02/28/2017 1:51 PM EST [facility] [place] Department of Anesthesiology Post-procedure Note Patient: Amanuel Hussein Procedure Summary Date Anesthesia Start Anesthesia Stop Room / Location 02/28/17 0728 1211 [facility] OR [facility] MAIN OR Procedure Diagnosis Surgeon Responsible Provider ROBOT XI LAPAROSCOPIC PARAESOPHAGEAL HERNIA REPAIR W/FUNDOPLASTY,W/O MESH (WRVU 26.6) (N/A ); MODIFIER ROBOT,DAVINCI XI (N/A ); EGD, UPPER GI ENDOSCOPY (N/A ) Paraesophageal hiatal hernia (hiatal hernia with history of bleeding) Al Ortiz MD Brown, Nathaniel J, MD All Anesthesia Providers: Anesthesiologist: Marcos Andino MD STORE DETECTIVE: Tracie Jaramillo CRNA Most Recent Vitals: 02/28/17 1315 BP: 134/79 Pulse: 74 Resp: 13 Temp: 36.6 ??C (97.9 ??F) SpO2: 96% Pain 0 (02/28/17 1315) Patient Location: PACU/[facility] Level of Consciousness: Awake and Alert [...] No N/V, no pain. Marcos Andino MD * Anesthesia Preprocedure Evaluation - Marcos Andino MD [...] COLONOSCOPY, DIAGNOSTIC 12/04/2012 COLONOSCOPY, DIAGNOSTIC performed by Rela Jones MD at [facility] ENDOSCOPY ??? PRO UPPER GI ENDOSCOPY, BIOPSY 12/04/2012 UPPER GASTROINTESTINAL ENDOSCOPY,WITH BIOPSY SINGLE OR MULTIPLE performed by Real Jones MD at [facility] ENDOSCOPY ??? PRO UPPER GI ENDOSCOPY, BIOPSY N/A 11/29/2016 UPPER GASTROINTESTINAL ENDOSCOPY,WITH BIOPSY SINGLE OR MULTIPLE (WRVU 2.49) performed by Kaiser Doyle MD at [facility] ENDOSCOPY Social History Substance Use Topics [...] 4 years ago), remote smoking hx (quit 1981 approx 30 pack-year hx). Medical chart reviewed thoroughly [...] consented to blood products. Plan discussed with STORE DETECTIVE. PAT Staff Note documented in this encounter Plan of Treatment Upcoming Encounters Date Type Department Care Team (Late st Contact Info) Description 01/08/2024 1:45 PM EDT TH Visit (TeleHealth) Radiation Oncology at [address] [address] Zahira Jaffe PA [facility] DR [place] [address] documented as of this encounter Visit Diagnoses Not on filedocumented in this encounter Administered Medications Inactive Administered Medications - up to 3 most recent administrations Medication Order MAR Action Action Date Dose Rate Site ceFAZolin (ANCEF) 2g in dextrose 5% 100 mL 2 g, Intravenous, EVERY 3 HOURS, 1 dose, First dose on Sun02/28/17 at 0630, Administer over 30 Minutes, Intra-Operative (Intra-Procedure), Indication for (Active or Suspected): Prophylaxis Given 02/28/2017 10:48 AM EST 2 g Given 02/28/2017 7:48 AM EST 2 g dexamethasone (DECADRON) injection PRN, Starting on Sun02/28/17 at 0809, Until Sun02/28/17 at 1211, Anesthesia Intra-op, Routine Given 02/28/2017 8:09 AM EST 4 mg ePHEDrine 5 mg/mL multi-dose injection PRN, Starting on Sun02/28/17 at 0827, Until Sun02/28/17 at 1211, Anesthesia Intra-op, Routine Given 02/28/2017 10:50 AM EST 5 mg Given 02/28/2017 9:26 AM EST 5 mg Given 02/28/2017 8:56 AM EST 5 mg fentaNYL 50 mcg/mL multi-dose injection PRN, Starting on Sun02/28/17 at 0728, Until Sun02/28/17 at 1211, Pain, Anesthesia Intra-op, Routine Given 02/28/2017 7:34 AM EST 50 mcg Given 02/28/2017 7:28 AM EST 50 mcg glycopyrrolate (ROBINUL) multi-dose injection PRN, Starting on Sun02/28/17 at 0832, Until Sun02/28/17 at 1211, Anesthesia Intra-op, Routine Given 02/28/2017 11:43 AM EST 0.4 mg Given 02/28/2017 8:32 AM EST 0.2 mg heparin (Porcine) subcutaneous injection 5,000 Units 5,000 Units, Subcutaneous, CEMENT MASON HELPER TO O.R., 1 dose, On Sun02/28/17 at 0645, Routine Given 02/28/2017 7:49 AM EST 5,000 Units HYDROmorphone (DILAUDID) injection PRN, Starting on Sun02/28/17 at 1130, Until Sun02/28/17 at 1211, Pain, Anesthesia Intra-op, Routine Given 02/28/2017 11:50 AM EST 0.4 mg Given 02/28/2017 11:42 AM EST 0.4 mg Given 02/28/2017 11:30 AM EST 0.4 mg lactated Ringers infusion CONTINUOUS PRN, Starting on Sun02/28/17 at 0728, Until Sun02/28/17 at 1211, Anesthesia Intra-op New Bag 02/28/2017 7:28 AM EST lactated Ringers infusion CONTINUOUS PRN, Starting on Sun02/28/17 at 0745, Until Sun02/28/17 at 1211, Anesthesia Intra-op New Bag 02/28/2017 10:39 AM EST New Bag 02/28/2017 7:45 AM EST lidocaine (PF) (XYLOCAINE) 100 mg/5 mL (2 %) injection PRN, Starting on Sun02/28/17 at 0739, Until Sun02/28/17 at 1211, Anesthesia Intra-op, Routine Given 02/28/2017 7:39 AM EST 100 mg midazolam (PF) (VERSED) 1 mg/mL multi-dose injection PRN, Starting on Sun02/28/17 at 0728, Until Sun02/28/17 at 1211, Sleep, Anesthesia Intra-op, Routine Given 02/28/2017 7:34 AM EST 1 mg Given 02/28/2017 7:28 AM EST 1 mg neostigmine (BLOXIVERZ) injection PRN, Starting on Sun02/28/17 at 1143, Until Sun02/28/17 at 1211, Anesthesia Intra-op, Routine Given 02/28/2017 11:43 AM EST 3 mg ondansetron (ZOFRAN) injection PRN, Starting on Sun02/28/17 at 1129, Until Sun02/28/17 at 1211, Nausea, Anesthesia Intra-op, Routine Given 02/28/2017 11:29 AM EST 4 mg PHENYLephrine (SHABBIR-SYNEPHRINE) 20 mg in sodium chloride 250 mL (standard ADULT & Pedi greater than 20kg) infusion CONTINUOUS PRN, Starting on Sun02/28/17 at 0850, Until Sun02/28/17 at 1211, Anesthesia Intra-op, Routine Rate/Dose Change 02/28/2017 11:30 AM EST 30 mcg/min 22.5 mL/hr Rate/Dose Change 02/28/2017 11:26 AM EST 50 mcg/min 37.5 m L/hr Rate/Dose Change 02/28/2017 10:47 AM EST 70 mcg/min 52.5 m L/hr PHENYLephrine in NS (PF) (SHABBIR-SYNEPHRINE) 0.8 mg/10 mL (80 mcg/mL) multi-dose injection Syrg PRN, Starting on Sun02/28/17 at 0758, Until Sun02/28/17 at 1211, Anesthesia Intra-op, Routine Given 02/28/2017 10:51 AM EST 160 mcg Given 02/28/2017 8:56 AM EST 60 mcg Given 02/28/2017 8:47 AM EST 160 mcg propofol (DIPRIVAN) 10 mg/mL bolus injection (Anesthesia) PRN, Starting on Sun02/28/17 at 0739, Until Sun02/28/17 at 1211, Anesthesia Intra-op Given 02/28/2017 7:39 AM EST 200 mg rocuronium (ZEMURON) multi-dose injection PRN, Starting on Sun02/28/17 at 0750, Until Sun02/28/17 at 1211, Anesthesia Intra-op, Routine Given 02/28/2017 10:20 AM EST 10 mg Given 02/28/2017 10:09 AM EST 10 mg Given 02/28/2017 9:17 AM EST 30 mg succinylcholine (ANECTINE) injection PRN, Starting on Sun02/28/17 at 0739, Until Sun02/28/17 at 1211, Anesthesia Intra-op, Routine Given 02/28/2017 7:39 AM EST 120 mg documented in this encounter Care Teams Spinneret Cleaner Relationship Specialty Start Date End Date Clara Wood MD [address] [place] [address] PCP - General Family Medicine 01/26/17 documented as of this encounter
--- OUTSIDE RECORDS SUMMARY | 2023-10-11 01:50 | XMS_ITS | Encounter Summary ---
Author Organization [facility] [place] [address] Care Team Providers Care Exhibitor Sales Name Role Phone Marin Patton MD Primary Care Provider [phone] Encounter Details Date Type Department Care Team (Late Contact Info) Description 12/14/2016 Telephone [place] [phone] Vanesa Thurston Social History Tobacco Use Types Packs/Day Years [...] encounter Miscellaneous Notes * Telephone Encounter - Vanesa Thurston - 12/14/2016 9:06 AM EDT left for Amanuel to call back to schedule fu with Angel after his Esophageal Manometry. Shreya from GI will contact pt to get that scheduled. documented in this encounter Plan of Treatment Upcoming Encounters Date Type Department Care Team (Late st Contact Info) Description 01/08/2024 1:45 PM EDT TH Visit (TeleHealth) Radiation Oncology at [address] [phone] [facility] DR HEMATOLOGY [place] [address] documented as of this encounter Visit Diagnoses Not on filedocumented in this encounter Care Teams Exhibitor Sales Relationship Specialty Start Date End Date Marin Patton MD PCP - General 02/15/10 01/25/17 documented as of this encounter
--- OUTSIDE RECORDS SUMMARY | 2023-10-11 01:50 | XMS_ITS | Encounter Summary ---
Author Organization Formerly [facility] [place] [address] Care Team Providers Care English Lecturer Name Role Phone Marin Patton MD Primary Care Provider [phone] Reason for Visit * Reason Comments Hiatal Hernia Encounter Details Date Type Department Care Team (Late st Contact Info) Description 01/05/2017 9:15 AM EDT Office [place] [address] Al Ortiz MD [facility] [place] [address] Hiatal hernia; Hiatal hernia with GERD and esophagitis Social [...] 36.6 ??C (97.9 ??F) 01/05/2017 9:12 AM ED T Respiratory Rate 18 01/05/2017 9:12 AM EDT Oxygen Saturation 98% 01/05/2017 9:12 AM EDT Inhaled Oxygen Concentration - - Weight 92.5 kg (204 lb) 01/05/2017 9:12 AM EDT Height 175 cm (5' 8.9) 01/05/2017 9:12 AM EDT Body Mass Index 30.21 01/05/2017 9:12 AM EDT documented in this encounter Progress Notes * Al Ortiz MD - 01/05/2017 9:15 AM EDT Thoracic Surgery Attending Outpatient Consultation Note Al Ortiz MD [place], [place] [address] FAX: ?? Referring Provider: [place] [address] ?? Reason for Consultation: Bleeding ulcer in setting of hiatal hernia ?? Today, 01/05/2017, I saw Mr. Hussein back in the Thoracic Surgery Clinic at [facility] in consultation for either a Type I [...] on 11/21/16 and was seen at the [facility] ED and discharged. He was seen again on 11/26 and again sent home. I don't have any records from these visits. He was again seen on 11/28 secondary to weakness and was transferred to [facility] for GI bleeding. Work up here included an EGD, see below. He denies any history of dysphagia. He has not lost weight and food does not stick in his lower chest. He denies regurgitation, heartburn or water brash. He is currently eating a regulardiet. He notes a history of reflux for many years, but this seems to be asymptomatic. He has had nopneumonias. He denies fevers, night sweats, chest pain. He has had no prior treatments. On recent ad mission, hgb went from 14 to 11.8 and [...] reports from 08/2012 and 11/2012 here at [facility] also reviewed. Normal colonoscopy 11/2012 ?? Sommer pH from 11/2012 at [facility]: Calculated DeMeester Score (normal values are up to 14.72) Day One Calculated DeMeester Score: 3.2 Day Two Calculated DeMeester Score: 2.1 Dglqj-Hgjzp-Rtbz DeMeester Score (Total): 2.7 During this recording period, the patient did not report any symptoms on his director equipment. IMPRESSION During this recording period, while the [...] past surgical history that includes Colonoscopy, Diagnostic (95445) (12/04/2012); Upper Gi Endoscopy, Biopsy (52641) (12/04/2012); and Upper Gi Endoscopy, Biopsy (39169) (N/A, 11/29/2016). ?? He has a current [...] well-developed male. He is alert and oriented. BP 152/87 (Patient Position: Sitting) Pulse 68 Temp 36.6 ??C (97.9 ??F) (Temporal) Resp 18 Ht175 cm (5' 8.9) Wt 92.5 kg (204 lb) SpO2 98% BMI 30.21 kg/m2 His pulse is regular, breathingis unlabored and temperature is afebrile. In general he is in no acute distress. His pupils are reactive. His sclera are anicteric. He has no palpable cervical or supraclavicular adenopathy. The lungfields are coarse to auscultation bilaterally. Heart rate [...] mechanical irritation of the stomach. He had anegative pH Sommer test in 2013 at the time of one of these episodes. I discussed his most recent EGD with Dr. 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 He is agreeable to surgery. He is having carpal tunnel release at the end of this month, and would prefer to have that surgery first. We discussed the possibility of a recurrent bleed in the interim, but given that he is on BIDPPI therapy, the risk is probably low. I think it would be ok to have the carpal tunnel surgery andhave him return to see me in clinic [...] he should feel free to contact us. ?? Al Ortiz MD 01/05/2017 documented in this encounter Plan of Treatment Upcoming Encounters Date Type Department Care Team (Late st Contact Info) Description 01/08/2024 1:45 PM EDT TH Visit (TeleHealth) Radiation Oncology at [address] [phone] Zahira Jaffe PA [facility] [address] [place] [address] documented as of this encounter Visit Diagnoses Diagnosis Hiatal hernia Diaphragmatic hernia without mention of obstruction or gangrene Hiatal hernia with GERD and esophagitis documented in this encounter Care Teams English Lecturer Relationship Specialty Start Date End Date Marin Patton MD PCP - General 02/15/10 01/25/17 documented as of this encounter
--- OUTSIDE RECORDS SUMMARY | 2023-10-11 01:50 | XMS_ITS | Encounter Summary ---
Author Organization Formerly [facility] [place] [address] Care Team Providers Care Traffic Engineering Technician Name Role Phone Clara Wood MD Primary Care Provider [phone] Encounter Details Date Type Department Care Team (Latest Contact Info) Description 01/29/2017 10:40 AM EST Clinical Support Same Day at [facility] [place] [address] Paraesophageal hiatal hernia Social History Tobacco Use [...] documented in this encounter Progress Notes * Ariela Baker RN - 01/29/2017 10:40 AM [...] TH Visit (TeleHealth) Radiation Oncology at [address] [phone] Zahira Jaffe PA [facility] DR [place] [address] documented as of this encounter Procedures Procedure Name Priority Date/Time Associated Diagnosis Comments EKG 12-LEAD Routine 01/29/2017 10:55 AM EST Paraesophageal hiatal hernia documented in this encounter Results * EKG 12 Lead (01/29/2017 10:55 AM EST) Ventricular rate 54 BPM MUSE SYSTEM Atrial Rate 54 BPM MUSE SYSTEM P-R Interval 210 ms MUSE SYSTEM QRS Duration 90 ms MUSE SYSTEM Q-T Interval 438 ms MUSE SYSTEM QTC Calculated (Bezet) 415 ms MUSE SYSTEM Calculated P [place] 24 degrees MUSE SYSTEM Calculated R [place] 5 degrees MUSE SYSTEM Calculated T [place] 24 degrees MUSE SYSTEM INTERPRETATION Sinus bradycardia with 1st degree A-V block Borderline criteria for Inferior infarct (cited on or before 28-NOV-2016) Abnormal ECG When compared with ECG of 28-NOV-2016 18:28, No significant change was found Confirmed by MD HUONG, VIVI ([id number]) on 01/29/2017 6:19:03 PM MUSE SYSTEM 01/29/2017 10:5 5 AM EST 01/29/2017 6:19 PM EST Al Ortiz MD ECG ORDERABLES NALLEN SYSTEM documented in this encounter Visit Diagnoses Diagnosis Paraesophageal hiatal hernia Diaphragmatic hernia without mention of obstruction or gangrene documented in this encounter Care Teams Traffic Engineering Technician Relationship Specialty Start Date End Date Clara Wood MD [facility] [address] [place] [address] PCP - General Family Medicine 01/26/17 documented as of this encounter
--- OUTSIDE RECORDS SUMMARY | 2023-10-11 01:50 | XMS_ITS | Encounter Summary ---
Author Organization [facility] [place] [address] Care Team Providers Care Talent Coordinator Name Role Phone Marin Patton MD Primary Care Provider [phone] Encounter Details Date Type Department Care Team (Late Contact Info) Description 12/09/2016 Orders Only [place] [address] Al Ortiz MD [facility] [place] [address] Hiatal hernia; Esophageal dysmotility Social History Tobacco Use Types [...] EDT TH Visit (TeleHealth) Radiation Oncology at [address] [phone] Zahira Jaffe PA [facility] [place] [address] documented as of this encounter Visit Diagnoses Diagnosis Hiatal hernia Diaphragmatic hernia without mention of obstruction or gangrene Esophageal dysmotility Dyskinesia of esophagus documented in this encounter Care Teams Talent Coordinator Relationship Specialty Start Date End Date Marin Patton MD PCP - General 02/15/10 01/25/17 documented as of this encounter
--- OUTSIDE RECORDS SUMMARY | 2023-10-11 01:50 | XMS_ITS | Encounter Summary ---
Author Organization [facility] [place] [address] Care Team Providers Care Global Transportation Manager Name Role Phone Clara Wood MD Primary Care Provider [phone] Reason for Referral * Diagnostic Test (Routine) - Closed Specialty Diagnoses / Procedures Referred By Lobo dean Referred To Contact Radiology Diagnoses Paraesophageal hernia Procedures XR Fluoro Barium Swallow Al Ortiz MD [facility] [place] [address] [facility] Rad Xray [address] [place] [address] [place] [address] Referral ID Status Reason Start Date Expiration Date V isits Requested Visits Authorized [id number] Closed Specialty Service Requested 03/16/2017 03/16/2018 1 1 Reason for Visit * Reason Comments Follow-up Encounter Details Date Type Department Care Team (Latest Contact Info) Description 03/16/2017 9:00 AM EST Office Visit Thoracic Surgery at [place] [address] Al Ortiz MD [facility] [place] [address] Paraesophageal hernia Social History Tobacco Use Types Packs/Day [...] * Patient Instructions* Marylou Sands RN - 03/16/2017 9:00 AM EST [...] Progress Notes * Al Ortiz MD - 03/16/2017 9:00 AM EST Thoracic Surgery Attending Outpatient Consultation Note Al Ortiz MD [facility] [address] [place] [address] FAX: Today I saw Mr. Amanuel Hussein [...] pain medication. He has no symptoms of reflux or regurgitation. Eckardt Scoring Weight loss (kg) Dysphagia [...] significant transfusionrequirements over the last several years. I spoke to him at length regarding the normal post-operative course. I explained that it is normal at this point to have some slight dysphagia to things likebread or thick meats. He is eating most [...] up appointment and a repeat barium swallow. This was scheduled today. He knows to call my [...] TH Visit (TeleHealth) Radiation Oncology at [address] [phone] [facility] DR HEMATOLOGY [place] [address] documented as of this encounter Results * (ABNORMAL) XR Fluoro [...] gangrene documented in this encounter Care Teams Global Transportation Manager Relationship Specialty Start Date End Date Clara Wood MD [address] [place] [address] PCP - General Family Medicine 01/26/17 documented as of this encounter
--- OUTSIDE RECORDS SUMMARY | 2023-10-11 01:50 | XMS_ITS | Encounter Summary ---
Author Organization [facility] [place] [address] Care Team Providers Care Vault Attendant Name Role Phone Marin Patton MD Primary Care Provider [phone] Encounter Details Date Type Department Care Team (Latest Contact Info) Description 12/08/2016 10:46 AM EDT - 12/08/2016 11:59 PM EDT Hospital Encounter XRay at [address] [place] [address] Gastrointestinal hemorrhage, unspecified gastrointestinal hemorrhage type Discharge Disposition: Home Social History Tobacco Use [...] TH Visit (TeleHealth) Radiation Oncology at [address] [phone] [facility] HEMATOLOGY [place] [address] documented as of this encounter Procedures Procedure Name Priority Date/Time Associated Diagnosis Comments XR FLUORO BARIUM SWALLOW (SINGLE CONTRAST) Routine 12/08/2016 11:16 AM EDT Gastrointestinal hemorrhage, unspecified gastrointestinal hemorrhage type documented in this encounter Results * XR Fluoro Barium Swallow (12/08/2016 11:16 AM EDT) Anatomical Region Laterality Modality N/A Radio Fluoroscop y Impressions 12/08/2016 11:46 AM EDT Moderate esophageal dysmotility. Recommend modified barium swallow in conjunction with speech therapy for further evaluation. Moderate size hiatal hernia, reducible upon Valsalva maneuver. No gastroesophageal reflux is present. No evidence of stricture, ulceration, or other abnormality at the distal esophagus/stomach. I have personally reviewed the image(s) and the residents interpretation and agree with the findings, Steve Ocasio at 12/08/2016 11:46 AM Narrative 12/08/2016 11:46 AM EDT EXAMINATION: XR FLUORO BARIUM SWALLOW CLINICAL HISTORY: 61 M with hiatal hernia seen on EGD and bleeding ulcers from it- pls evaluate TECHNIQUE: Double contrast esophagram was performed. Fluoroscopic spot films were obtained. A timeout was conducted to verify patient name, date of , MRN, and procedure to be performed. Fluoro time: 2.33 minutes COMPARISON: None FINDINGS: The esophagus is normal in course and caliber, and is well distended on double contrast views. ??The mucosal pattern is normal. Patient swallowed without difficulty throughout the examination. There is adequate distention of the esophagus with adequate visualization of the mucosa. No mucosal or mural abnormalities were noted.The esophageal vestibule was clearly visualized. There is evidence of moderate esophageal dysmotility, including splitting of bolus with incomplete clearance requiring multiple successive swallows. Some tertiary contractions were noted. There was a moderate-sized ??hiatal hernia visualized during Valsalva maneuvers. The gastroesophageal junction is normally positioned at the level of the diaphragm. No evidence of gastroesophageal reflux is present in the YIP or supine position, and upon provocation with Valsalva maneuver. The barium pill passed through the esophagus without difficulty, and through the GE junction into the stomach without further intervention. Procedure Note Steve Ocasio MD - 12/08/2016 EXAMINATION: XR FLUORO BARIUM SWALLOW CLINICAL HISTORY: 61 M with hiatal hernia seen on EGD and bleeding ulcersfrom it- pls evaluate TECHNIQUE: Double contrast esophagram was performed. Fluoroscopic spot films wereobtained. A timeout was conducted to verify patient name, date of , MRN, and procedure to be performed. Fluoro time: 2.33 minutes COMPARISON: None FINDINGS: The esophagus is normal in course and caliber, and is well distended ondouble contrast views. The mucosal pattern is normal. Patient swallowedwithout difficulty throughout the examination. There is adequate distention of the esophagus with adequate visualizationof the mucosa. No mucosal or mural abnormalities were noted.The esophagealvestibule was clearly visualized. There is evidence of moderate esophageal dysmotility, including splittingof bolus with incomplete clearance requiring multiple successive swallows.Some tertiary contractions were noted. There was a moderate-sized hiatal hernia visualized during Valsalvamaneuvers. The gastroesophageal junction is normally positioned at the level of the diaphragm. No evidence of gastroesophageal reflux is present in the RAOor supine position, and upon provocation with Valsalva maneuver. The barium pill passed through the esophagus without difficulty, andthrough the GE junction into the stomach without further intervention. IMPRESSION Moderate esophageal dysmotility. Recommend modified barium swallow in conjunction with speech therapy for further evaluation. Moderate size hiatal hernia, reducible upon Valsalva maneuver. No gastroesophageal reflux is present. No evidence of stricture, ulceration, or other abnormality at the distal esophagus/stomach. I have personally reviewed the image(s) and the residents interpretationand agree with the findings, Steve Ocasio at 12/08/2016 11:46 AM Denis Dinh MD IMG FLUORO ORDERABLE S documented in this encounter Visit Diagnoses Diagnosis Gastrointestinal hemorrhage, unspecified gastrointestinal hemorrhage type documented in this encounter Administered Medications Inactive Administered Medications - up to 3 most recent administrations Medication Order MAR Action Action Date Dose Rate Site barium sulfate (E-Z DISK) tablet 700 mg 700 mg, Oral, ONCE PRN, 1 dose, Starting on Sun12/08/16 at 1117, Until Sun12/08/16 at 1105, Per Protocol, Routine Given 12/08/2016 11:05 AM EDT 700 mg barium sulfate (E-Z-HD) 98 % oral suspension 135 mL 135 mL, Oral, ONCE PRN, 1 dose, Starting on Sun12/08/16 at 1117, Until 9/15/17 at 1105, Per Protocol, Routine Given 12/08/2016 11:05 AM EDT 135 mLs barium sulfate (EZPAQUE) oral suspension 275 mL 275 mL, Oral, ONCE PRN, 1 dose, Starting on Sun12/08/16 at 1117, Until Sun12/08/16 at 1100, Per Protocol, Routine Given 12/08/2016 11:00 AM EDT 275 mLs documented in this encounter Care Teams Vault Attendant Relationship Specialty Start Date End Date Marin Patton MD PCP - General 02/15/10 01/25/17 documented as of this encounter
--- OUTSIDE RECORDS SUMMARY | 2023-10-11 01:50 | XMS_ITS | Encounter Summary ---
Author Organization [facility] [place] [place] [address] Care Team Providers Care Pushcart Peddler Name Role Phone Clara Wood MD Primary Care Provider [phone] Reason for Visit * Reason Comments Hiatal Hernia Encounter Details Date Type Department Care Team (Latest Contact Info) Description 01/26/2017 9:30 AM EDT Office [place] [address] Al Ortiz MD [facility] [place] [address] Paraesophageal hiatal hernia Social History Tobacco Use [...] 36.5 ??C (97.7 ??F) 01/26/2017 9:29 AM ED T Respiratory Rate 18 01/26/2017 9:29 AM EDT Oxygen Saturation 97% 01/26/2017 9:29 AM EDT Inhaled Oxygen Concentration - - Weight 93.4 kg (206 lb) 01/26/2017 9:29 AM EDT Height 175 cm (5' 8.9) 01/26/2017 9:29 AM EDT Body Mass Index 30.51 01/26/2017 9:29 AM EDT documented in this encounter Patient Instructions * Patient Instructions* Marylou Sands RN - 01/26/2017 9:30 AM EDT In RVATS or robot-assisted video-assisted thoracic surgery, the surgeon controls the camera, light source and surgical tools from a console, with the same degree of flexibility and dexterity as if they were held in the surgeon's hand. The tiny size of the instruments and the precision movement of the robotic arms allow the surgeon to operate in small and [id number] places in the chest cavity, and to [...] site. documented in this encounter Progress Notes * Al Ortiz MD - 01/26/2017 9:30 AM EDT Thoracic Surgery Attending Outpatient Consultation Note Al Ortiz MD [place] [address] FAX: ? Referring Provider: Marin Patton MD [address] [place] [address] ? Reason for Consultation: Bleeding ulcer in setting of hiatal hernia ? Today, 01/26/2017, I saw ??Jovita back??in the Thoracic Surgery Clinic at [facility]??in consultation for??a small to moderate Type 3 hiatal??hernia. He was last seen on 01/05/2017 and subsequently has undergone right carpal tunnel release. 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 He presents todaywith his . ?? As you know he??is a very pleasant 61 yrs-old male who has had??several episodes of melena over thelast several years. He notes that he first [...] on 11/21/16 and was seen at the [facility] ED and discharged. He was seen again on 11/26 and again sent home. I don't have any records from these visits. He was again seenon 11/28 secondary to weakness and was transferred to [facility] for GI bleeding. Work up here included [...] reports from 08/2012 and 11/2012 here at [facility] also reviewed. Normal colonoscopy 11/2012 ? Sommer pH from 11/2012 at [facility]: Calculated DeMeester Score (normal values are up to 14.72) Day One Calculated DeMeester Score: 3.2 Day Two Calculated DeMeester Score: 2.1 Qajcl-Jcbsq-Eznw DeMeester Score (Total): 2.7 During this recording period, the patient did not report any symptoms on his forensic social worker. IMPRESSION During this recording period, while the [...] past surgical history that includes Colonoscopy, Diagnostic (17676) (12/04/2012); Upper Gi Endoscopy, Biopsy (67143) (12/04/2012); and Upper Gi Endoscopy, Biopsy (38298) (N/A, 11/29/2016). Right carpal tunnel release 2017? [...] Yes ? Comment: Rare ? On examination, ??Hosingloluisa??is a well nourished, well-developed male. ?He??is alert and oriented. ??BP 122/73 (Patient Position: Sitting) Pulse 69 Temp 36.5 ??C (97.7 ??F) (Temporal) Resp 18 Ht 175 cm (5' 8.9) Wt 93.4 kg (206 lb) SpO2 97% BMI 30.51 kg/m2 His??pulse is regular,breathing is unlabored and temperature is afebrile. ??In [...] bandaged in a cast. ? 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 He is agreeable to surgery. ?? We reviewed the risks of a robotic paraesophageal hernia repair with likely Toupet fundoplication. In particular, we discussed perioperative risks including, but not limited to infection, bleeding, postoperative pain, need for reoperation, stricture, organ failure, cardiac dysrhythmia or other major adverse cardiac event, stroke and . We also discussed the functional outcomes if the vagus nerves are injured including dumping syndrome, regurgitation, dysphagia and possible need for dilatation. He indicated his understanding and wishes to proceed as recommended. His surgery is tentatively s cheduled for February 28. He will need preoperative [...] TH Visit (TeleHealth) Radiation Oncology at [address] [phone] Zahira Jaffe PA [facility] DR HEMATOLOGY [place] [address] documented as of this encounter Results * EKG 12 Lead (01/29/2017 10:55 AM EST) Ventricular rate 54 BPM MUSE SYSTEM Atrial Rate 54 BPM MUSE SYSTEM P-R Interval 210 ms MUSE SYSTEM QRS Duration 90 ms MUSE SYSTEM Q-T Interval 438 ms MUSE SYSTEM QTC Calculated (Bezet) 415 ms MUSE SYSTEM Calculated P [place] 24 degrees MUSE SYSTEM Calculated R [place] 5 degrees MUSE SYSTEM Calculated T [place] 24 degrees MUSE SYSTEM INTERPRETATION Sinus bradycardia with 1st degree A-V block Borderline criteria for Inferior infarct (cited on or before 28-NOV-2016) Abnormal ECG When compared with ECG of 28-NOV-2016 18:28, No significant change was found Confirmed by MD HUONG, IVVI ([id number]) on 01/29/2017 6:19:03 PM MUSE SYSTEM 01/29/2017 10:5 5 AM EST 01/29/2017 6:19 PM EST Al Ortiz MD ECG ORDERABLES MUSE SYSTEM * Comprehensive metabolic panel (non-fasting) (01/29/2017 10:50 AM EST) Pathologist [facility] Glucose Lvl 87 65 - 199 mg/dL [...] [facility] Estimated GFR >60 >=60 [facility] Comment: The reported eGFR should be multiplied by 1.2 for patients. The MDRD is not an appropriate measure of renal function for patients with body mass extremes or in patients with acute kidney failure. [email or web address]/DHnkdep [email or web address] Blood specimen (specimen) 01/29/2017 10:50 AM EST 01/29/2017 11:06 AM EST Narrative Resulting Agency Comment Spec In Lab Al Ortiz MD CHEMISTRY ORDERABLE S [facility] [place] [address] documented in this encounter Visit Diagnoses Diagnosis Paraesophageal hiatal hernia Diaphragmatic hernia without mention of obstruction or gangrene documented in this encounter Care Teams Pushcart Peddler Relationship Specialty Start Date End Date Clara Wood MD [address] [place] [address] PCP - General Family Medicine 01/26/17 documented as of this encounter
--- OUTSIDE RECORDS SUMMARY | 2023-10-11 01:50 | XMS_ITS | Encounter Summary ---
[place] [address] Care Team Providers Care Cardiopulmonary Technician And Eeg Tech Name Role Phone Marin Patton MD Primary Care Provider [phone] Reason for Referral * Consultation (Hospitalist (2 weeks)) - Specialty Diagnoses / Procedures Referred By Contac t Referred To Contact Thoracic Surgery Diagnoses Gastrointestinal hemorrhage, unspecified gastrointestinal hemorrhage [place] [address] [facility] [address] [place] [phone] Referral ID Status Reason Start Date Expiration Date V isits Requested Visits Authorized [id number] Consult, Test & Treat 11/29/2016 11/29/2017 1 1 Reason for Visit * Auth/Cert Specialty Diagnoses / Procedures Referred By Contac t Referred To Contact Diagnoses GI bleed GI BLEED Melena IV SED per Medina Procedures EGD, UPPER GI ENDOSCOPY Referral ID Status Reason Start Date Expiration Date Visits Re quested Visits Authorized [id number] 1 1 Encounter Details Date Type Department Care Team (Latest Contact Info) Description 11/28/2016 4:00 PM EDT - 11/30/2016 2:12 PM EDT Hospital Encounter [address] [place] [address] [place] [address] [place] [address] Gastrointestinal hemorrhage, unspecified gastrointestinal hemorrhage type Discharge Disposition: Home Social History Tobacco Use Types Packs/Day Years Used Date Smoking Tobacco: Former Cigarettes 1.5 20 Comments:Quit in 1984 Alcohol Use Standard Drinks/Week Comments [...] - documented in this encounter Discharge Summaries * El Dinh MD - 11/30/2016 11:33 AM EDT Discharge Summary Patient Name: Amanuel Hussein Patient Age: 61 y.o. Language: Cuban Race: Ethnicity: Not nor Admit date: 11/28/2016 Discharge date and time: 11/30/16 Afternoon Attending Physician: El Dinh MD Discharge Physician: Dr. El Dinh Follow-up Recommendations for Providers: ?? Borderline hypertensive during admission, recommend following as outpatient ?? FYI appointments for barium swallow and then thoracic surgery for evaluation of hiatal hernia on12/08/[address] Ortiz at [facility] Inpatient Provider Contact Information: For questions regarding this document or issues relating to this hospitalization on the Medical Service, please contact your inpatient physician through the [facility] Chief Nurse . Issues afterhours and on weekends will be handled by [...] presents with melena. He was seen at [facility] on 11/26 after an episode of melena. He had 1 at home then 2 in the hospital. Hemoglobin was 14. CTabdomen and pelvis concerning for and esophageal motility issue and enteritis. He was referred to Gen Surg as an outpatient for possible EGD. He reports approximately 5 more episodes of melena after being discharged from the ED. [facility] In the interim, he also developed generalized weakness, and SOB with exertion. He deniesCP, cough or fever. He denies abdominal pain, nausea, or vomiting. He returned to [facility] today and repeat Hgb was 12. He was subsequently transferred to [facility] for possible EGD. Hospital Course: #GI bleed - Presented with persistent melena and decreasing hemoglobin, no nausea, vomiting, or abdominal pain. EGD showed non-bleeding esophageal ulcer with mechanical irritation secondary to hiatalhernia as likely source of GI bleed. Appt [...] due to bleeding from your esophageal ulcer. You had an upper endoscopy done, and the ulcer [...] ?? Follow up with thoracic surgery at [facility] for possible repair of hiatal hernia. You [...] at 11 AM Fluoroscopy (Barium swallow) 3T, [facility] Sunday12/08/[address] Ortiz, Thoracic Surgery 3K, [facility] 12/13/16 at 8:[address] Britt, PCP [place] Your Inpatient Doctor(s) at [facility]: Dr. El Forde, sub-actuarial intern General Instructions None Future Appointments and Orders Future Appointments Provider Department Dept Phone 12/08/2016 11:00 AM [facility] DX ROOM 8 XRay at [place] [phone] Please do not eat after midnight. 12/08/2016 2:00 PM Al Ortiz MD Thoracic Surgery at [place] [phone] Future Orders Complete By Expires XR Fluoro Barium Swallow [47429 Custom] 12/08/2016 06/09/2017 Process Instructions: Scheduling Instructions: Questions: Where will study be performed?: [facility] Reason for exam and clinical history: 61 M with hiatal hernia seen on EGD and bleeding ulcers from it- pls evaluate Other pertinent information: Area to be examined: Stat read required?: Date of injury if applicable: Requested Time: Referral to Thoracic Surgery [[id number] Custom] As directed Process Instructions: If no progress note charted, please enter Clinical details in comments. Scheduling Instructions: Questions: My question or request is: 61 M with hiatal hernia and GIB 2/2 ulcer felt to be irritation from hiatal hernia- ?surgical repair Discharge References/Attachments HIATAL HERNIA (INDONESIAN) GI TRACT: UPPER: ANATOMY SKETCH (INDONESIAN) documented in this encounter Discharge Instructions * Patient Instructions* El Dinh MD - 11/29/2016 1:34 PM EDT [...] due to bleeding from your esophageal ulcer. You had an upper endoscopy done, and the ulcer [...] ?? Follow up with thoracic surgery at [facility] for possible repair of hiatal hernia. You [...] at 11 AM Fluoroscopy (Barium swallow) 3T, [facility] Sunday12/08/[address] Ortiz, Thoracic Surgery 3K, [facility] Sun12/13/16 at 8:[address] Britt, PCP [place] Your Inpatient Doctor(s) at [facility]: Dr. El Forde, sub-actuarial intern * Attachments The following attachments cannot be sent through Care Everywhere. * HIATAL HERNIA (INDONESIAN) * GI TRACT: UPPER: ANATOMY SKETCH (INDONESIAN) documented in this encounter Progress Notes * El Dinh MD - 11/30/2016 11:07 AM [...] examination of the patient, discussion of the hospitalstay, instructions for continuing care to all relevant caregivers, and preparation of discharge records, prescriptions and referral forms. Plans ? Discharge to home ? Follow-up scheduled with PCP, Thoracic Surgery ? Please see the Discharge Summary for complete details of any medication changes and additional plans. * Kaiser Doyle MD - 11/30/2016 8:33 AM EDT Gastroenterology & Hepatology Progress Note Amanuel Hussein 1955 [id number] Date of Admission: 11/28/2016 ( Hospital Day 0 days ) Attg: Zaheer Meyer, DO ID: 61-year-old man with prior GI bleeds due to esophageal ulcers, most recently in 2012, who presentedto OSH with several days of melena and Hgb 14 -> 12. He's remained stable since admission, with no further episodes of melena and stable Hgb. EGD [...] 13 CREATININE 0.87 0.96 0.88 Recent Labs 11/30/1661811/29/1644911/28/162030 CALCIUM 8.6 8.3* 8.6 Recent Labs 11/28/162030 [...] esophageal ulcers, most recently in 2012, admitted withmelena. EGD on 11/29 showed non-bleeding esophageal ulcer, [...] Medina. We reviewed the medical record and pertinentstudies and imaging. My evaluation and physical examination confirms the above findings. The assessment and plan were formulated in discussion with me at the time of the encounter and I agree with them as documented. Kaiser Doyle MD [facility] Gastroenterology * Stephani Resendiz RN - 11/29/2016 1:39 PM EDT 11/29/16 1338 Safety Safety WDL WDL Visual Checks Awake Safety Interventions Safety Promotion/Fall Prevention safety round/check completed All Alarms alarm(s) activated and audible Type of Monitor Masimo Positioning Repositioned Supine;Turns self Amanuel returned from Endoscopy a/o with no complaints. He is groggy from procedure, answers questions appropriately. Will let rest and monitor * El Dinh MD - 11/29/2016 11:34 AM [...] in and out of the ER at [facility] over the last few days, and therefore [...] bleeding has stopped Team Pager(MD Coverage 16/10): #[phone] PCP: Marin Patton MD [phone] Attestation: OBS status EL DINH MD 11/29/2016 * Elana Patiño RN - 11/28/2016 4:40 PM EDT Victoriano arrived to the unit around 1600. AAOx4. VSS. paged for assessment. Lungs clear. Bowels actvie. Voiding adequate amounts. Pulses palpable. SBA. Left #18and Right #16 PIV. Pt denies pain and nausea. Will continue to monitor. Report received from [facility]NR[facility]. documented in this encounter H&P Notes * Kaiser Doyle MD - 11/29/2016 11:08 AM EDT Gastroenterology and Hepatology Pre-Procedure History and Physical Exam Procedure: EGD: Indication: melena ID: 61-year-old man with prior GI bleeds due to esophageal ulcers, most recently in 2012, who presentedto OSH with several days of melena and Hgb 14 -> 12. He's remained stable since admission, with no further episodes of melena and stable Hgb. Patient [...] the patient. Consent signed. Kaiser Doyle MD [facility] Gastroenterology * Luis Fernando Sotelo MD - 11/28/2016 6:10 PM EDT Inpatient Hospital Medicine - Admission Note Problem List: Active Hospital Problems Diagnosis ??? GI bleed Resolved Hospital Problems Diagnosis Date Resolved No resolved problems to display. Active Non-Hospital Problems Diagnosis ??? Esophageal ulcer ??? Hematemesis ??? Melena ID: 61 y.o. Male presents to [facility] with melena History of Present Illness: HPI 61 year old man with h/o GI bleed 2/2 esophageal ulcers who presents with melena. He was seen at [facility] on 11/26 after an episode of melena. He had 1 at home then 2 in the hospital. Hemoglobin was 14. CTabdomen and pelvis concerning for and esophageal motility issue and enteritis. He was referred to Gen Surg as an outpatient for possible EGD. He reports approximately 5 more episodes of melena after being discharged from the ED. He [facility] In the interim, he also developed generalized weakness, and SOB with exertion. He deniesCP, cough or fever. He denies abdominal pain, nausea, or vomiting. He returned to [facility] today and repeat Hgb was 12. He was subsequently transferred to [facility] for possible EGD. Review of Systems General: [...] DIAGNOSTIC performed by Real Jones MD at [facility] ENDOSCOPY ??? UPPER GI ENDOSCOPY, BIOPSY 12/04/2012 UPPER GASTROINTESTINAL ENDOSCOPY,WITH BIOPSY SINGLE OR MULTIPLE performed by Real Jones MD at [facility] ENDOSCOPY Prior To Admission Medications: Prescriptions [...] presents with melena. He was seen at [facility] on 11/26 after an episode of melena. He had 1 at home then 2 in the hospital. Hemoglobin was 14. CTabdomen and pelvis concerning for and esophageal motility issue and enteritis. He was referred to Gen Surg as an outpatient for possible EGD. He reports approximately 5 more episodes of melena after being discharged from the ED. He called the Gen Surg who told them that his appointment would not beuntil CLAUDIA. In the interim, he also developed generalized weakness, and SOB with exertion. He deniesCP, cough or fever. He denies abdominal pain, nausea, or vomiting. He returned to [facility] today and repeat Hgb was 12. He was subsequently transferred to [facility] for possible EGD. # UGIB - LR at 75 ml/hr while NPO - Serial H/H Q6H - PRBC if Hgb < 7 - IV PPI BID - GI consult for possible EGD # SOB - Check EKG and CXR Plan: Admit to Hospital Medicine Physical Therapy referral DVT Prophylaxis If currently a smoker - advised about smoking cessation and will provide smoking cessation materialand support. Pneumovax and Influenza Immunizations given as [...] inpatient IPI level of care meeting a minimumof two midnights or is on the [facility] inpatient only procedure list (status C) due to: GI bleed requiring close monitoring of Hgb and urgent EGD documented in this encounter Miscellaneous Notes * Plan of Care - Stephani Resendiz RN [...] if applicable: no CPG GOAL OUTCOME EVALUATION: * Plan of Care - Elana Patiño RN [...] non- skid socks CPG GOAL OUTCOME EVALUATION: * Plan of Care - Stephani Resendiz RN - 11/29/2016 3:02 PM EDT Problem: Patient Care Overview Goal: Plan of Care Review Outcome: Ongoing (Interventions Implemented as Appropriate) 11/29/16 1450 Plan of Care Review Progress improving Coping/Psychosocial Plan Of Care Reviewed With patient OUTCOME EVALUATION NOTE: OUTCOME SUMMARY: Amanuel is doing well today. He reports no stools, is voiding well, tolerating clears after his EGD. He ambulates independently with a steady gate. PLAN MOVING FORWARD: Monitor I/O, promote pt autonomy and provide a safe environment. INDIVIDUALIZED FALL PREVENTION INTERVENTIONS: Patient-specific fall risk factors per assessment: [current deficits]: unfamiliar environment Assistance [level of assistance required for transfers and ambulation]: Independent Supervision [direct monitoring required during toileting and ADLs]: Independent Surveillance [continuous indirect monitoring]: Masimo, hourly rounds, masimo No CPG GOAL OUTCOME EVALUATION: * Initial Assessments - Desiree Fernandez RN - [...] rail. Bed/bath second floor. Drive. 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 [address] [facility] [address] Social & Family Supports/Community Resources: Nata Extended Emergency Contact Information Primary Emergency Contact: Nata Hussein Raymond Relation: Spouse Behavioral Health History: Denies Substance Use/Abuse: Denies smoking, alcohol use, and/or illicit drug use Other Pertinent/Service Specific Information: None Health/Prescription Coverage: Payor: [employer] / Plan: [employer] / Product Type: *No Product type* / Secondary Insurance: None Prescription Coverage: see above Preferred Pharmacy: Please use [facility] [id number] [place] [address] - [phone] [facility] [address] [facility] [phone] [facility] [phone] Other: None Primary Care Provider: Dr. Zeynep MD [phone] Patient/Caregiver Goals of Treatment: Safe dc plan [...] planning. HENRI Fernandez, MS, BSN, RN, Pager [phone] Office of Care Management * Med Student Progress Note - Brittany Forde G - 11/29/2016 8:23 AM EDT Inpatient Hospital Medicine Progress Note Patient info: Name: Amanuel Hussein : 1955 PCP: Marin Patton MD PCP phone number: [phone] Date of Admission: 11/28/2016 ( Hospital Day [...] bleed 24 Hour Events: - Transferred from [facility] d/t continued melena, and increased SOB, dizziness, and Hgb drop from 14 --> 12 (EGD could only be performed there) - Hgb trended: 12.4 --> 11.8 - LR at 75 cc/hr - GI saw, EGD at 11 AM S: SOB improved, no dizziness. No chest pain, N/V, has not had bowel movement since arrived at [facility] O: Vitals: Last value Range last 24 [...] since 2004 related to NSAIDs and GERD. Hewas seen here in [address] Jones after melena and hematemesis despite PPI therapy. At that time biopsies were taken d/t z-line irregularities, and SPARKS pH capsule study showed normal values. He hadbeen on nexium 40 BID, but within the last couple of years has decreased this to once daily. He hasnot used any NSAIDs recently, and has had no [...] pending course Brittany Forde MS4 Pager - [phone] 11/29/2016 * Plan of Care - Lizbeth Yanez RN [...] up independently in the room voiding adequate amountof clear Yellow urine. Will continue to monitor. PLAN MOVING FORWARD: Continue to monitor pain, encourage ambulation, monitor intake and output. Possible discharge in the next coming days. INDIVIDUALIZED FALL PREVENTION INTERVENTIONS: Patient-specific fall risk factors per assessment: [current deficits]: none Assistance [level of assistance required for transfers and ambulation]: independent Supervision [direct monitoring required during toileting and ADLs]: Eyes on Surveillance [continuous indirect monitoring]: Hourly rounding, call cohen in reach Patient-specific fall prevention interventions for sensory deficits provided, if applicable: [X] Yes Lighting adjusted to task, environmental modifications, non skid socks when OOB. CPG GOAL OUTCOME EVALUATION: * Consult Note - Kaiser Doyle MD - 11/28/2016 6:01 PM EDT Gastroenterology & Hepatology Inpatient Consultation Amanuel Hussein 1955 [id number] PCP: Marin Patton MD Date of Admission: 11/28/2016 ( Hospital Day 0 days ) Attg: Zaheer Meyer DO Source: patient Reason for Consult: melena History of Present Illness: 61-year-old healthy man with recurrent esophageal ulcers, transferred from H with several days ofmelena and Hgb 14 to 12. His last episodes of melena prior to this admission was in 2012, and at that time was due to esophageal ulcer (see endoscopy report from [facility]).At that time, he had been taking NSAIDS which [...] DIAGNOSTIC performed by Real Jones MD at [facility] ENDOSCOPY ??? UPPER GI ENDOSCOPY, BIOPSY 12/04/2012 UPPER GASTROINTESTINAL ENDOSCOPY,WITH BIOPSY SINGLE OR MULTIPLE performed by Real Jones MD at [facility] ENDOSCOPY Medications Scheduled Meds: ??? sodium chloride 0.9 % 5 mL Intravenous BID ??? pantoprazole 40 mg Intravenous BID Continuous Infusions: ??? lactated Ringers 75 mL/hr (11/28/16 1047) PRN Meds:.sodium chloride 0.9 %, lidocaine, acetaminophen, [...] Procedures/Reports: Reviewed in eDH August 21, 2012 [facility]: (per GI office note): EGD performed [...] ulcer. Duodenum 2nd portion~negative. Colonoscopy 12/04/12 at [facility] Impression: ? - The examined portion of [...] ulcers, transferred from OSH with several days ofmelena and Hgb 14 to 12. He has remained hemodynamically stable, without any further evidence of GIbleeding overnight. We will precede with EGD this morning for further evaluation. Recommendations - 2 large bore IVs, active type and cross, IV PPI - EGD 11/29/16 -d/w attg, Dr. Doyle -please call w/ questions Julissa Medina MD, GI Fellow [phone] 11/28/2016 Attending Addendum: I have seen and examined the patient with Dr. Medina. We reviewed the medical record and pertinentstudies and imaging. My evaluation and physical examination confirms the above findings. The assessment and plan were formulated in discussion with me at the time of the encounter and I agree with them as documented. Kaiser Doyle MD [facility] Gastroenterology documented in this encounter Plan of Treatment Upcoming Encounters Date Type Department Care Team (Late st Contact Info) Description 01/08/2024 1:45 PM EDT TH Visit (TeleHealth) Radiation Oncology at [address] [phone] Zahira Jaffe PA [facility] [address] [place]Y [place] [address] Scheduled Referrals Name Type Priority Associated Diagnoses Orde r Schedule Referral to Thoracic Surgery Outpatient Referral Routine Gastrointestinal hemorrhage, unspecified gastrointestinal hemorrhage type Ordered: 11/29/2016 documented as of this encounter Procedures Procedure Name Priority Date/Time Associated Diagnosis Comments HEMOGRAM Routine 11/30/2016 6:19 AM EDT DIFFERENTIAL, AUTOMATED Routine 12/01/19 17 6:19 AM EDT CBC (WITH DIFF) Routine 11/30/2016 6:19 AM EDT BASIC METABOLIC PANEL (NON-FASTING) Routine 11/30/2016 6:19 AM EDT SURGICAL PATHOLOGY REPORT Routine 11/29/2016 12:21 PM EDT SPECIMEN TO PATHOLOGY Routine 11/29/2016 12:21 PM EDT UPPER GASTROINTESTINAL ENDOSCOPY,WITH BIOPSY SINGLE OR MULTIPLE (WRVU 2.39) 11/29/2016 11:25 AM EDT Melena IV SED per Medina HEMOGRAM Routine 11/29/2016 4:50 AM EDT DIFFERENTIAL, AUTOMATED Routine 11/30/19 17 4:50 AM EDT CBC (WITH DIFF) Routine 11/29/2016 4:50 AM EDT BASIC METABOLIC PANEL (NON-FASTING) Routine 11/29/2016 4:50 AM EDT XR CHEST ONE VIEW Routine 11/28/2016 10:32 PM EDT HEMOGRAM Routine 11/28/2016 8:31 PM EDT DIFFERENTIAL, AUTOMATED Routine 11/29/19 17 8:31 PM EDT PROTHROMBIN TIME Routine 11/28/2016 8:31 PM EDT CBC (WITH DIFF) Routine 11/28/2016 8:31 PM EDT HEPATIC FUNCTION PANEL Routine 7 8:31 PM EDT BASIC METABOLIC PANEL (NON-FASTING) Routine 11/28/2016 8:31 PM EDT EKG 12-LEAD STAT 11/28/2016 6:28 PM EDT Gastrointestinal hemorrhage, unspecified gastrointestinal hemorrhage type [...] 11:46 AM El Dinh MD IMG FLUORO ORDERABLE S * Differential, Automated (11/30/2016 6:19 AM EDT) Neutrophils % 60.9 % [facility] Neutr Abs (ANC) 3.83 1.70 - 6.10 x10(3)/[facility] Lymphocytes % 26.1 % [facility] Lymphocytes Abs 1.6 0.9 - 3.2 x10(3)/[facility] Monocytes % 9.4 % [facility] Monocyte Abs 0.6 0.3 - 0.9 x10(3)/[facility] Eosinophils % 2.7 % [facility] Eosinophils Abs 0.2 0.0 - 0.4 x10(3)/[facility] Basophils % 0.6 % [facility] Basophils Abs 0.0 0.0 - 0.1 x10(3)/[facility] Immature Gran % 0.30 % [facility] Comment: Immature granulocytes(IG's)percentage and absolute count will include metamyelocytes, myelocytes, and promyelocytes. Blood smears from CBCs yielding IG's will be scanned manually for concordance. If this scan disagrees with the automated IG or if promyelocytes are noted, a manual differential will be performed. Malika Gran Abs 0.02 0.00 - 0.04 x10(3)/[facility] Blood specimen (specimen) 11/30/2016 6:19 AM EDT 11/30/2016 6:54 AM EDT Narrative Resulting Agency Comment Spec In Lab Luis Fernando Sotelo MD HEMATOLOGY ORDERABLE S [facility] [place] [address] * (ABNORMAL) Hemogram (11/30/2016 6:19 AM EDT) WBC 6.3 4.0 - 9.5 x10(3)/[facility] RBC 3.85(L) 4.58 - 5.54 x10(6)/[facility] Hemoglobin 13.0(L) 13.7 - 16.5 gm/dL [facility] Hematocrit 34.9(L) 40.5 - 48.5 % [facility] MCV 90.6 82.9 - 93.1 fL [facility] MCH 33.8(H) 27.5 - 32.1 pg [facility] MCHC 37.2(H) 32.0 - 35.7 gm/dL [facility] Platelets 267 145 - 357 x10(3)/[facility] RDWSD 38.4 36.0 - 45.0 [facility] RDWCV 11.7 11.4 - 13.8 % [facility] MPV 8.6 7.6 - 12.9 [facility] nRBC % Auto 0.0 % [facility] nRBC Abs Auto 0.000 0.000 - 0.000 x10(3)/[facility] Blood specimen (specimen) 11/30/2016 6:19 AM EDT 11/30/2016 6:54 AM EDT Narrative Resulting Agency Comment Spec In Lab Luis Fernando Sotelo MD HEMATOLOGY ORDERABLE S [facility] [place] [address] * (ABNORMAL) Basic Metabolic Panel (non-fasting) (11/30/2016 6:19 AM EDT) Glucose Lvl 109 65 - 199 mg/dL [facility] Comment:Diabetes: >=200 mg/d L plus symptoms BUN 9(L) 10 - 20 mg/dL [facility] Creatinine 0.87 0.80 - 1.50 mg/dL [facility] Comment: Please note that the pediatric reference intervals supplied above were not validated at [facility]. Results from pediatric patients should be interpreted in conjunction to the patient's age, height and muscle mass. Sodium 139 135 - 145 mmol/L [facility] Potassium 3.8 3.5 - 5.0 mmol/L [facility] Comment: Please note: ??Patients with WBC >100,000 may have falsely elevated Potassium levels. ??For accurate Potassium quantification in these patients send serum separator tube (gold top) for subsequent determinations. ??Contact the Clinical Chemistry Laboratory if there are any questions. Chloride 103 98 - 107 mmol/L [facility] CO2 23 22 - 31 mmol/L [facility] Anion Gap 13 5 - 15 mmol/L [facility] Calcium 8.6 8.5 - 10.5 mg/dL [facility] Estimated GFR >60 >=60 [facility] Comment: This estimated GFR (eGFR) value was calculated using the MDRD equation which has been validated on patients between the ages of 18 and 70. The MDRD should not be used to assess kidney function in patients < 18 years of age or in patients with extremes of body mass, or in patients with acute kidney failure. This value should be multiplied by 1.2 for patients. For further information please copy and paste the following links into your internet browser. [email or web address] Blood specimen (specimen) 11/30/2016 6:19 AM EDT 11/30/2016 6:55 AM EDT Narrative Resulting Agency Comment Spec In Lab Luis Fernando Sotelo MD CHEMISTRY ORDERABLES [facility] [place] [address] * Surgical Pathology Report (11/29/2016 12:21 PM EDT) Surgical Pathology Report [id number] ? Location: 3T The signing pathologist has (i) examined the relevant preparation(s) for the specimen(s) and (ii) rendered or confirmed the diagnosis(es). . ?Surgical Pathology DIAGNOSIS Ulcer in proximal stomach distal to GE junction: Squamocolumnar junctional mucosa (cardia type) with mild active and chronic inflammation, and pancreatic metaplasia. ??There is no evidence of intestinal metaplasia and dysplasia. Electronically signed by: ??Gerard PEREZ, Louisa Verified: ??12/02/2016 ?Pathologist CLINICAL INFORMATION Specimen Submitted: A - Ulcer in proximal stomach distal to GE junction Clinical History: Melena Clinical Diagnosis: Esophageal ulcer in hiatal hernia rule out malignancy SPECIMEN PROCESSING A - Labeled/Fixativ e: Ulcer in proximal stomach distal to GE junction, formalin. Quantity/Size: Three, 0.2-0.3 cm. Tissue Description: Soft tse tissue. Sections/Proces sing: (T1) ??dolores [facility] 11/29/2016 12:2 1 PM EDT Kaiser Doyle MD PATHOLOGY/CYTOLOG Y ORDERABLES Performing Organization Address [facility] Co de Phone Number [facility] [place] [address] * Specimen to Pathology (surgical or derm) (11/29/2016 12:21 PM EDT) AP Specimen 11/29/2016 12:2 1 PM EDT 11/29/2016 12:21 PM EDT Narrative [facility] - 11/29/2016 12:21 PM EDT Specimen requisition ordered. ??Separate Pathology report to follow Kaiser Doyle MD PATHOLOGY/CYTOLOG Y ORDERABLES Performing Organization Address [facility] Co de Phone Number [facility] [place] [address] * Differential, Automated (11/29/2016 4:50 AM EDT) Neutrophils % 62.0 % [facility] Neutr Abs (ANC) 3.62 1.70 - 6.10 x10(3)/[facility] Lymphocytes % 25.9 % [facility] Lymphocytes Abs 1.5 0.9 - 3.2 x10(3)/[facility] Monocytes % 8.4 % [facility] Monocyte Abs 0.5 0.3 - 0.9 x10(3)/[facility] Eosinophils % 2.7 % [facility] Eosinophils Abs 0.2 0.0 - 0.4 x10(3)/[facility] Basophils % 0.7 % [facility] Basophils Abs 0.0 0.0 - 0.1 x10(3)/[facility] Immature Gran % 0.30 % [facility] Comment: Immature granulocytes(IG's)percentage and absolute count will include metamyelocytes, myelocytes, and promyelocytes. Blood smears from CBCs yielding IG's will be scanned manually for concordance. If this scan disagrees with the automated IG or if promyelocytes are noted, a manual differential will be performed. Malika Gran Abs 0.02 0.00 - 0.04 x10(3)/[facility] Blood specimen (specimen) 11/29/2016 4:50 AM EDT 11/29/2016 5:22 AM EDT Narrative Resulting Agency Comment Spec In Lab Luis Fernando Sotelo MD HEMATOLOGY ORDERABLE S [facility] [place] [address] * (ABNORMAL) Hemogram (11/29/2016 4:50 AM EDT) Pathologist [facility] WBC 5.8 4.0 - 9.5 x10(3)/[facility] RBC 3.59(L) 4.58 - 5.54 x10(6)/[facility] Hemoglobin 11.8(L) 13.7 - 16.5 gm/dL [facility] Hematocrit 33.3(L) 40.5 - 48.5 % [facility] MCV 92.8 82.9 - 93.1 [facility] MCH 32.9(H) 27.5 - 32.1 pg [facility] MCHC 35.4 32.0 - 35.7 gm/dL [facility] Platelets 230 145 - 357 x10(3)/[facility] RDWSD 39.4 36.0 - 45.0 [facility] RDWCV 11.5 11.4 - 13.8 % [facility] MPV 8.5 7.6 - 12.9 [facility] nRBC % Auto 0.0 % [facility] nRBC Abs Auto 0.000 0.000 - 0.000 x10(3)/[facility] Blood specimen (specimen) 11/29/2016 4:50 AM EDT 11/29/2016 5:22 AM EDT Narrative Resulting Agency Comment Spec In Lab Luis Fernando Sotelo MD HEMATOLOGY ORDERABLE S [facility] [place] [address] * (ABNORMAL) Basic Metabolic Panel (non-fasting) (11/29/2016 4:50 AM EDT) Glucose Lvl 109 65 - 199 mg/dL [facility] Comment:Diabetes: >=200 mg/d L plus symptoms BUN 12 10 - 20 mg/dL [facility] Creatinine 0.96 0.80 - 1.50 mg/dL [facility] Comment: Please note that the pediatric reference intervals supplied above were not validated at [facility]. Results from pediatric patients should be interpreted in conjunction to the patient's age, height and muscle mass. Sodium 139 135 - 145 mmol/L [facility] Potassium 3.9 3.5 - 5.0 mmol/L [facility] Comment: Please note: ??Patients with WBC >100,000 may have falsely elevated Potassium levels. ??For accurate Potassium quantification in these patients send serum separator tube (gold top) for subsequent determinations. ??Contact the Clinical Chemistry Laboratory if there are any questions. Chloride 104 98 - 107 mmol/L [facility] CO2 24 22 - 31 mmol/L [facility] Anion Gap 11 5 - 15 mmol/L [facility] Calcium 8.3(L) 8.5 - 10.5 mg/dL [facility] Estimated GFR >60 >=60 [facility] Comment: This estimated GFR (eGFR) value was calculated using the MDRD equation which has been validated on patients between the ages of 18 and 70. The MDRD should not be used to assess kidney function in patients < 18 years of age or in patients with extremes of body mass, or in patients with acute kidney failure. This value should be multiplied by 1.2 for patients. For further information please copy and paste the following links into your internet browser. [email or web address] Blood specimen (specimen) 11/29/2016 4:50 AM EDT 11/29/2016 5:22 AM EDT Narrative Resulting Agency Comment Spec In Lab Luis Fernando Sotelo MD CHEMISTRY ORDERABLES [facility] [place] [address] * XR Chest PA or AP 1 view (11/28/2016 10:32 PM EDT) Anatomical Region Laterality Modality Chest N/A Digital Radiogra phy Impressions 11/29/2016 5:51 AM EDT No acute cardiopulmonary findings. Narrative 11/29/2016 5:51 AM EDT EXAMINATION: XR CHEST PA OR AP 1 VIEW CLINICAL HISTORY: SOB TECHNIQUE: Single frontal view of the chest COMPARISON: None FINDINGS: No focal consolidation. Cardiomediastinal silhouette is within normal limits. No effusions or pneumothorax. Procedure Note Ferny Robertson MD - 11/29/2016 EXAMINATION: XR CHEST PA OR AP 1 VIEW CLINICAL HISTORY: SOB TECHNIQUE: Single frontal view of the chest COMPARISON: None FINDINGS: No focal consolidation. Cardiomediastinal silhouette is within normallimits. No effusions or pneumothorax. IMPRESSION No acute cardiopulmonary findings. Luis Fernando Sotelo MD IMG DX ORDERABLES * Differential, Automated (11/28/2016 8:31 PM EDT) Neutrophils % 59.9 % [facility] Neutr Abs (ANC) 4.33 1.70 - 6.10 x10(3)/[facility] Lymphocytes % 30.1 % [facility] Lymphocytes Abs 2.2 0.9 - 3.2 x10(3)/[facility] Monocytes % 7.1 % [facility] Monocyte Abs 0.5 0.3 - 0.9 x10(3)/[facility] Eosinophils % 2.1 % [facility] Eosinophils Abs 0.2 0.0 - 0.4 x10(3)/[facility] Basophils % 0.7 % [facility] Basophils Abs 0.0 0.0 - 0.1 x10(3)/[facility] Immature Gran % 0.10 % [facility] Comment: Immature granulocytes(IG's)percentage and absolute count will include metamyelocytes, myelocytes, and promyelocytes. Blood smears from CBCs yielding IG's will be scanned manually for concordance. If this scan disagrees with the automated IG or if promyelocytes are noted, a manual differential will be performed. Malika Gran Abs 0.01 0.00 - 0.04 x10(3)/[facility] Blood specimen (specimen) 11/28/2016 8:31 PM EDT 11/28/2016 8:35 PM EDT Narrative Resulting Agency Comment Spec In Lab Luis Fernando Sotelo MD HEMATOLOGY ORDERABLE S [facility] [place] [address] * (ABNORMAL) Hemogram (11/28/2016 8:31 PM EDT) WBC 7.2 4.0 - 9.5 x10(3)/[facility] RBC 3.76(L) 4.58 - 5.54 x10(6)/[facility] Hemoglobin 12.4(L) 13.7 - 16.5 gm/dL [facility] Hematocrit 34.3(L) 40.5 - 48.5 % [facility] MCV 91.2 82.9 - 93.1 [facility] MCH 33.0(H) 27.5 - 32.1 pg [facility] MCHC 36.2(H) 32.0 - 35.7 gm/dL [facility] Platelets 227 145 - 357 x10(3)/[facility] RDWSD 39.5 36.0 - 45.0 [facility] RDWCV 11.8 11.4 - 13.8 % [facility] MPV 8.4 7.6 - 12.9 [facility] nRBC % Auto 0.0 % [facility] nRBC Abs Auto 0.000 0.000 - 0.000 x10(3)/[facility] Blood specimen (specimen) 11/28/2016 8:31 PM EDT 11/28/2016 8:35 PM EDT Narrative Resulting Agency Comment Spec In Lab Luis Fernando Sotelo MD HEMATOLOGY ORDERABLE S [facility] [place] [address] * Prothrombin Time (11/28/2016 8:31 PM EDT) [facility] PT 13.7 12.0 - 15.0 sec [facility] Comment: An INR <2.0 indicates adequate procoagulant activity for hemostasis in most patients without underlying bleeding disorders, though the INR may not adequately reflect hemostatic capacity in patients with liver disease and synthetic impairment. The recommended target INR range for therapeutic anticoagulation is 2.0 ? 3.0 for most applications, though lower and higher ranges may be appropriate depending on clinical circumstances. INR 1.0 0.9 - 1.1 [facility] Blood specimen (specimen) 11/28/2016 8:31 PM EDT 11/28/2016 8:35 PM EDT Narrative Resulting Agency Comment Spec In Lab Luis Fernando Sotelo MD HEMATOLOGY ORDERABLE S Performing Organization Address City/[facility]/ZIP Co de Phone Number [facility] [place] [address] * (ABNORMAL) Hepatic Function Panel (11/28/2016 8:31 PM EDT) [facility] Total Protein 6.6 6.1 - 8.0 gm/dL [facility] Albumin 3.7 3.2 - 5.2 gm/dL [facility] AST 53(H) 0 - 39 unit/L [facility] ALT 59(H) 0 - 55 unit/L [facility] Alk Phos 50 40 - 120 unit/L [facility] Total Bilirubin 0.9 0.2 - 1.3 mg/dL [facility] Bili, Direct 0.2 0.0 - 0.3 mg/dL [facility] Blood specimen (specimen) 11/28/2016 8:31 PM EDT 11/28/2016 8:35 PM EDT Narrative Resulting Agency Comment Spec In Lab Luis Fernando Sotelo MD CHEMISTRY ORDERABLES Performing Organization Address City/[facility]/ZIP Co de Phone Number [facility] [place] [address] * Basic Metabolic Panel (non-fasting) (11/28/2016 8:31 PM EDT) Glucose Lvl 101 65 - 199 mg/dL [facility] Comment:Diabetes: >=200 mg/d L plus symptoms BUN 13 10 - 20 mg/dL [facility] Creatinine 0.88 0.80 - 1.50 mg/dL [facility] Comment: Please note that the pediatric reference intervals supplied above were not validated at [facility]. Results from pediatric patients should be interpreted in conjunction to the patient's age, height and muscle mass. Sodium 142 135 - 145 mmol/L [facility] Potassium 3.9 3.5 - 5.0 mmol/L [facility] Comment: Please note: ??Patients with WBC >100,000 may have falsely elevated Potassium levels. ??For accurate Potassium quantification in these patients send serum separator tube (gold top) for subsequent determinations. ??Contact the Clinical Chemistry Laboratory if there are any questions. Chloride 104 98 - 107 mmol/L [facility] CO2 25 22 - 31 mmol/L [facility] Anion Gap 13 5 - 15 mmol/L [facility] Calcium 8.6 8.5 - 10.5 mg/dL [facility] Estimated GFR >60 >=60 [facility] Comment: This estimated GFR (eGFR) value was calculated using the MDRD equation which has been validated on patients between the ages of 18 and 70. The MDRD should not be used to assess kidney function in patients < 18 years of age or in patients with extremes of body mass, or in patients with acute kidney failure. This value should be multiplied by 1.2 for patients. For further information please copy and paste the following links into your internet browser. [email or web address] Blood specimen (specimen) 11/28/2016 8:31 PM EDT 11/28/2016 8:35 PM EDT Narrative Resulting Agency Comment Spec In Lab Luis Fernando Sotelo MD CHEMISTRY ORDERABLES Performing Organization Address City/[facility]/ZIP Co de Phone Number [facility] [place] [address] * EKG 12 Lead (11/28/2016 6:28 PM EDT) Ventricular rate 61 BPM MUSE SYSTEM Atrial Rate 61 BPM MUSE SYSTEM P-R Interval 210 ms MUSE SYSTEM QRS Duration 84 ms MUSE SYSTEM Q-T Interval 440 ms MUSE SYSTEM QTC Calculated (Bezet) 442 ms MUSE SYSTEM Calculated P [place] 22 degrees MUSE SYSTEM Calculated R [place] -6 degrees MUSE SYSTEM Calculated T [place] 23 degrees MUSE SYSTEM INTERPRETATION Sinus rhythm with 1st degree A-V block Inferior infarct , age undetermined Abnormal ECG No previous ECGs available Confirmed by MD Morrow Timothy ([id number]) on 11/29/2016 8:22:01 AM MUSE SYSTEM 11/28/2016 6:28 PM EDT 11/29/2016 8:22 AM EDT Luis Fernando Sotelo MD ECG ORDERABLES Performing Organization Address [facility] Co de Phone Number MUSE SYSTEM documented in this encounter Visit Diagnoses Diagnosis Gastrointestinal hemorrhage, unspecified gastrointestinal hemorrhage type GI bleed Hemorrhage of gastrointestinal tract, unspecified Melena Blood in stool Hiatal hernia Diaphragmatic hernia without mention of obstruction or gangrene Esophageal ulcer Ulcer of esophagus without bleeding Gastrointestinal hemorrhage, unspecified gastrointestinal hemorrhage type documented in this encounter Admitting Diagnoses Diagnosis GI bleed Hemorrhage of gastrointestinal tract, unspecified documented in this encounter Administered Medications Inactive Administered Medications - up to 3 most recent administrations Medication Order MAR Action Action Date Dose Rate Site lactated Ringers infusion 75 mL/hr, Intravenous, CONTINUOUS, Starting on Sun11/28/16 at 1730, Until Sun11/29/16 at 1729 New Bag 11/29/2016 7:47 AM EDT 75 mL/hr 75 mL/hr New Bag 11/28/2016 5:59 PM EDT 75 mL/hr 75 mL/hr ondansetron (ZOFRAN) injection 4 mg 4 mg, Intravenous, EVERY 8 HOURS PRN, Starting on Sun11/28/16 at 1714, Until Claudia 11/30/16 at 1612, Nausea, May repeat times one in 30 minutes if ineffective. If multiple antiemetics are ordered, give ondansetron first. ondansetron (ZOFRAN) tablet 4 mg 4 mg, [...] IV., Routine pantoprazole (PROTONIX) injection 40 mg 40 mg, Intravenous, 2 TIMES DAILY, First dose on Sun11/28/16 at 2100, Until Discontinued Given 11/30/2016 9:22 AM EDT 40 mg Given 11/29/2016 9:38 PM EDT 40 mg Given 11/29/2016 9:15 AM EDT 40 mg sodium chloride 0.9 % flush 5 mL 5 mL, Intravenous, 2 TIMES DAILY, First dose on Sun11/28/16 at 2100, Until Discontinued, Routine Given 11/30/2016 9:22 AM EDT 5 mLs Given 11/29/2016 9:38 PM EDT 5 mLs Given 11/29/2016 9:15 AM EDT 5 mLs documented in this encounter Active and Recently Administered Medications Times are shown in EDT. Scheduled Medication Order 11/28/2016 11/29/2016 11/30/2016 pantoprazole (PROTONIX) injection 40 mg 40 mg, Intravenous, 2 TIMES DAILY, First dose on Sun11/28/16 at 2100, Until Discontinued 2038 (Given - Provider: Lizbeth Yanez RN) 0915 (Given - Provider: Stephani Resendiz RN)1058 (MAY Hold - Provider: Admin Adt - Reason: Transfer to a Procedural area)1320 (MAY Unhold - Provider: Admin Adt)2137 (Given - Provider: Elana Patiño RN) 0922 (Given - Provider: Stephani Resendiz RN) sodium chloride 0.9 % flush 5 mL 5 mL, Intravenous, 2 TIMES DAILY, First dose on Sun11/28/16 at 2100, Until Discontinued, Routine 2039 (Given - Provider: Lizbeth Yanez RN) 0915 (Given - Provider: Stephani Resendiz RN)1058 (MAY Hold - Provider: Admin Adt - Reason: Transfer to a Procedural area)1320 ([facility] Unhold - Provider: Admin Adt)2138 (Given - Provider: Elana Patiño RN) 0922 (Given - Provider: Stephani Resendiz, RN) Continuous Medication Order 11/28/2016 11/29/2016 11/30/2016 lactated Ringers infusion 75 mL/hr, Intravenous, CONTINUOUS, Starting on Sun11/28/16 at 1730, Until Sun11/29/16 at 1729 1759 (New Bag - Provider: Clover Lucero RN) 0747 (New Bag - Provider: Stephani Resendiz, ANA)1058 ([facility] Hold - Provider: Admin Adt - Reason: Transfer to a Procedural area)1320 ([facility] Unhold - Provider: Admin Adt) PRN Medication Order 11/28/2016 11/29/2016 11/30/2016 acetaminophen (TYLENOL) tablet 650 mg 650 mg, Oral, EVERY 6 HOURS PRN, Starting on Sun11/28/16 at 1714, Until Sun11/30/16 at 1612, Pain, Fever, Administer for temperature greater than or equal to 38.2 degrees celsius. Maximum daily dose of acetaminophen from all sources not to exceed 4,000 mg., Routine 1058 ([facility] Hold - Provider: Admin Adt - Reason: Transfer to a Procedural area)1320 ([facility] Unhold - Provider: Admin Adt) fentaNYL 50 mcg/mL multi-dose injection (CANCELED) ONCE PRN, Starting on Sun11/29/16 at 1130, Until Sun11/30/16 at 1612, Intra-Operative (Intra-Procedure), Routine 1130 (Given - Provider: Ronnie Knutson RN)1136 (Given - Provider: Fiordaliza Knutson RN)1139 (Given - Provider: Fiordaliza Knutson RN)1146 (Given - Provider: Fiordaliza Knutson RN)1150 (Given - Provider: Fiordaliza Knutson RN) lidocaine (XYLOCAINE) 10 mg/mL (1 %) injection 3 mg 3 mg (0.3 mL), Subcutaneous, ONCE PRN, 1 dose, Starting on Sun11/28/16 at 1714, Until Sun11/30/16 at 1612, for discomfort with PIV insertion, Routine 1058 ([facility] Hold - Provider: Admin Adt - Reason: Transfer to a Procedural area)1320 ([facility] Unhold - Provider: Admin Adt) midazolam (PF) (VERSED) 1 mg/mL multi-dose injection (CANCELED) ONCE PRN, Starting on Sun11/29/16 at 1130, Until Claudia 11/30/16 at 1612, Intra-Operative (Intra-Procedure), Routine 1130 (Given - Provider: Ronnie Knutson RN)1136 (Given - Provider: Fiordaliza Knutson, ANA)1139 (Given - Provider: Fiordaliza Knutson, ANA) ondansetron (ZOFRAN) injection 4 mg(Linked Group 1) 4 mg, Intravenous, EVERY 8 HOURS PRN, Starting on Sun11/28/16 at 1714, Until Lcaudia 11/30/16 at 1612, Nausea, May repeat times one in 30 minutes if ineffective. If multiple antiemetics are ordered, give ondansetron first. 1058 ([facility] Hold - Provider: Admin Adt - Reason: Transfer to a Procedural area)1320 ([facility] Unhold - Provider: Admin Adt) ondansetron (ZOFRAN) tablet 4 mg(Linked Group 1) [...] to take PO, may give IV., Routine 1058 ([facility] Hold - Provider: Admin Adt - Reason: Transfer to a Procedural area)1320 ([facility] Unhold - Provider: Admin Adt) sodium chloride 0.9 % flush 5-20 mL 5-20 mL, Intravenous, EVERY 1 MIN PRN, Starting on Sun11/28/16 at 1714, Until Claudia 11/30/16 at 1612, flush, Flush pertains to all indwelling lines. Flush per protocol found in the job aid using the link provided on this medication record., Routine 1058 ([facility] Hold - Provider: Admin Adt - Reason: Transfer to a Procedural area)1320 ([facility] Unhold - Provider: Admin Adt) Linked Groups Order Group 1: ondansetron (ZOFRAN) [...] to take PO, may give IV., Routine Or ondansetron (ZOFRAN) injection 4 mgJump to med 4 mg, Intravenous, EVERY 8 HOURS PRN, Starting on Sun11/28/16 at 1714, Until Claudia 11/30/16 at 1612, Nausea, May repeat times one in 30 minutes if ineffective. If multiple antiemetics are ordered, give ondansetron first. documented in this encounter Care Teams Cardiopulmonary Technician And Eeg Tech Relationship Specialty Start Date End Date Marin Patton MD PCP - General 02/15/10 01/25/17 documented as of this encounter
--- OUTSIDE RECORDS SUMMARY | 2023-10-11 01:50 | XMS_ITS | Encounter Summary ---
Author Organization [employer], Located Within [facility] [place] [address] Care Team Providers Care Hogshead Press Operator Name Role Phone Marin Patton MD Primary Care Provider [phone] Reason for Visit * Auth/Cert Specialty Diagnoses / Procedures Referred By Lobo dean Referred To Contact Diagnoses GI bleed GI BLEED Melena IV SED per Adam Procedures EGD, UPPER GI ENDOSCOPY Referral ID Status Reason Start Date Expiration Date Visits Re quested Visits Authorized [id number] 1 1 Encounter Details Date Type Department Care Team (Late st Contact Info) Description 11/29/2016 11:00 AM EDT - 11/29/2016 11:30 AM EDT [place] [address] Kaiser Doyle MD [facility] [place] [address] UPPER GASTROINTESTINAL ENDOSCOPY,WITH BIOPSY SINGLE OR MULTIPLE (WRVU 2.39) Social History Tobacco Use Types Packs/Day Years [...] Amanuel Hussein Patient Age: 61 y.o. Language: Japanese Race: Ethnicity: Not nor Admit date: 11/28/2016 Discharge date and time: 11/30/16 Afternoon Attending Physician: El Dinh MD Discharge Physician: Dr. El Dinh Follow-up Recommendations for Providers: ?? Borderline hypertensive during admission, recommend following as outpatient ?? FYI appointments for barium swallow and then thoracic surgery for evaluation of hiatal hernia on12/08/[address] Ortiz at [facility] Inpatient Provider Contact Information: For questions regarding this document or issues relating to this hospitalization on the Medical Service, please contact your inpatient physician through the [facility] Desk Pen Set Assembler . Issues afterhours and on weekends will [...] presents with melena. He was seen at [facility] on 11/26 after an episode of melena. [...] [facility] In the interim, he also developed generalized weakness, and SOB with exertion. He deniesCP, cough or fever. He denies abdominal pain, nausea, or vomiting. He returned to [facility] today and repeat Hgb was 12. He was subsequently transferred to [facility] for possible EGD. Hospital Course: #GI bleed [...] ?? Follow up with thoracic surgery at [facility] for possible repair of hiatal hernia. You [...] at 11 AM Fluoroscopy (Barium swallow) 3T, [facility] Sunday12/08/[address] Ortiz, Thoracic Surgery 3K, [facility] Sun12/13/16 at 8:[address] Britt, PCP [place] Your Inpatient Doctor(s) at [facility]: Dr. El Forde, sub-statistics intern General Instructions None Future Appointments and Orders Future Appointments Provider Department Dept Phone 12/08/2016 11:00 AM [facility] DX ROOM 8 XRay at [place] [phone] Please do not eat after midnight. 12/08/2016 2:00 PM Al Ortiz MD Thoracic Surgery at [place] [phone] Future Orders Complete By Expires XR Fluoro Barium Swallow [[id number] Custom] 12/08/2016 06/09/2017 Process Instructions: Scheduling Instructions: Questions: Where will study be performed?: [facility] Reason for exam and clinical history: 61 M with hiatal hernia seen on EGD and bleeding ulcers from it- pls evaluate Other pertinent information: Area to be examined: Stat read required?: Date of injury if applicable: Requested Time: Referral to Thoracic Surgery [[id number] Custom] As directed Process Instructions: If no progress note charted, please enter Clinical details in comments. Scheduling Instructions: Questions: My question or request is: 61 M with hiatal hernia and GIB 2/2 ulcer felt to be irritation from hiatal hernia- ?surgical repair Discharge References/Attachments HIATAL HERNIA (NICARAGUAN) GI TRACT: UPPER: ANATOMY SKETCH (NICARAGUAN) documented in this encounter Discharge Instructions * [...] ?? Follow up with thoracic surgery at [facility] for possible repair of hiatal hernia. You [...] at 11 AM Fluoroscopy (Barium swallow) , [facility] Sunday12/08/[address] Ortiz, Thoracic Surgery 3K, [facility] 12/13/16 at 8:[address] Britt, PCP [place] Your Inpatient Doctor(s) at [facility]: Dr. El Forde, sub-statistics intern * Attachments The following attachments cannot be sent through Care Everywhere. * HIATAL HERNIA (NICARAGUAN) * GI TRACT: UPPER: ANATOMY SKETCH (NICARAGUAN) documented in this encounter Progress Notes * [...] & Hepatology Progress Note Amanuel Hussein 1955 [id number] Date of Admission: 11/28/2016 ( Hospital Day [...] EMR. Recent pertinent labs include: Recent Labs 11/30/16 0611/29/1644911/28/162030 WBC 6.3 5.8 7.2 HGB 13.0* 11.8* [...] with them as documented. Kaiser Doyle MD [facility] Gastroenterology * Stephani Resendiz RN - 11/29/2016 [...] No previous ECGs available Confirmed by MD Odalys, Steve ([id number]) on 11/29/2016 8:22:01 AM QTCCALC 442 VASCULAR: No results for input(s): VBTEXTRPT in the last 720 hours. IMAGING: CXR: no acute infiltrates Assessment: 61 y.o. male with a history of esophageal ulcers with GI bleed on PPI therapy admitted with worsening melena and worsening anemia. She has been in and out of the ER at [facility] over the last few days, and therefore [...] medically ready and bleeding has stopped Team Pager( Coverage 16/10): #[phone] PCP: Marin Patton MD [phone] Attestation: OBS status EL DINH MD 11/29/2016 * Elana Patiño, RN - 11/28/2016 4:40 PM EDT Victoriano arrived to the unit around 1600. AAOx4. VSS. PEREZ paged for assessment. Lungs clear. Bowels actvie. Voiding adequate amounts. Pulses palpable. SBA. Left #18and Right #16 PIV. Pt denies pain and nausea. Will continue to monitor. Report received from [facility] RNRosa. documented in this [...] the patient. Consent signed. Kaiser Doyle MD [facility] Gastroenterology * Luis Fernando Sotelo MD - 11/28/2016 6:10 PM EDT Inpatient Hospital Medicine - Admission Note Problem List: Active Hospital Problems Diagnosis ??? GI bleed Resolved Hospital Problems Diagnosis Date Resolved No resolved problems to display. Active Non-Hospital Problems Diagnosis ??? Esophageal ulcer ??? Hematemesis ??? Melena ID: 61 y.o. Male presents to [facility] with melena History of Present Illness: HPI 61 year old man with h/o GI bleed 2/2 esophageal ulcers who presents with melena. He was seen at [facility] on 11/26 after an episode of melena. [...] [facility] In the interim, he also developed generalized weakness, and SOB with exertion. He deniesCP, cough or fever. He denies abdominal pain, nausea, or vomiting. He returned to [facility] today and repeat Hgb was 12. He was subsequently transferred to [facility] for possible EGD. Review of Systems General: [...] DIAGNOSTIC performed by Real Jones MD at [facility] ENDOSCOPY ??? UPPER GI ENDOSCOPY, BIOPSY 12/04/2012 UPPER GASTROINTESTINAL ENDOSCOPY,WITH BIOPSY SINGLE OR MULTIPLE performed by Real Jones MD at [facility] ENDOSCOPY Prior To Admission Medications: Prescriptions [...] presents with melena. He was seen at [facility] on 11/26 after an episode of melena. [...] pain, nausea, or vomiting. He returned to [facility] today and repeat Hgb was 12. He was subsequently transferred to [facility] for possible EGD. # UGIB - LR [...] minimumof two midnights or is on the [facility] inpatient only procedure list (status C) due to: GI bleed requiring close monitoring of Hgb and urgent EGD documented in this encounter Miscellaneous Notes * Plan of Care - Stephani Resendiz RN - 11/30/2016 12:02 PM EDT Problem: Patient Care Overview Goal: Plan of Care Review Outcome: Outcome (s) achieved Date Met: 11/30/16 11/30/16 3722 Plan of Care Review Progress improving Coping/Psychosocial [...] EVALUATION: * Plan of Care - Elana Patñio RN - 11/30/2016 3:45 AM EDT Problem: [...] Santana, sue Costello CPG GOAL OUTCOME EVALUATION: * Initial Assessments [...] Bed/bath second floor. Drive. 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 [address] [facility] [address] Social & Family Supports/Community Resources: Nata Extended Emergency Contact Information Primary Emergency Contact: Nata Hussein Relation: Spouse Behavioral Health History: Denies Substance Use/Abuse: Denies smoking, alcohol use, and/or illicit drug use Other Pertinent/Service Specific Information: None Health/Prescription Coverage: Payor: GLORIA MARTIN / Plan: CASTRO POINT / Product Type: *No Product type* / Secondary Insurance: None Prescription Coverage: see above Preferred Pharmacy: Please use [facility] [id number] [place] [address] - [phone] [facility] [phone] [facility] [phone] Other: None Primary Care Provider: Dr. Zeynep MD [phone] Patient/Caregiver Goals of Treatment: Safe dc plan [...] planning. HENRI Fernandez, MS, BSN, RN, Pager [phone] Office of Care Management * Med Student Progress Note - Brittany Forde - 11/29/2016 8:23 AM EDT Inpatient Hospital Medicine Progress Note Patient info: Name: Amanuel Hussein : 1955 PCP: Marin Patton MD PCP phone number: [phone] Date of Admission: 11/28/2016 ( Hospital Day [...] bleed 24 Hour Events: - Transferred from [facility] d/t continued melena, and increased SOB, dizziness, and Hgb drop from 14 --> 12 (EGD could only be performed there) - Hgb trended: 12.4 --> 11.8 - LR at 75 cc/hr - GI saw, EGD at 11 AM S: SOB improved, no dizziness. No chest pain, N/V, has not had bowel movement since arrived at [facility] O: Vitals: Last value Range last 24 [...] 0.96 0.88 GLUCOSE 109 101 Recent Labs 11/29/160 11/28/162030 CALCIUM 8.3* 8.6 LFT's: Recent Labs 11/28/162030 [...] NSAIDs and GERD. Hewas seen here in [address] Jones after melena and hematemesis [...] pending course Brittany Forde MS4 Pager - [phone] 11/29/2016 * Plan of Care - Lizbeth [...] & Hepatology Inpatient Consultation Amanuel Hussein 1955 [id number] PCP: Marin Patton MD Date of Admission: 11/28/2016 ( Hospital Day 0 days ) Attg: Zaheer Meyer DO Source: patient Reason for Consult: melena History of Present Illness: 61-year-old healthy man with recurrent esophageal ulcers, transferred from [facility] with several days ofmelena and Hgb 14 to 12. His last episodes of melena prior to this admission was in 2012, and at that time was due to esophageal ulcer (see endoscopy report from [facility]).At that time, he had been taking NSAIDS which was thought to be the culprit (although path from this EGD is not in our system). Since then he has not had any NSAIDS. He otherwise is in his usual state of health- no nausea, no weight loss, no dysphagia, no abdominal pain. FH / SH reviewed Review of Systems: 10 systems reviewed, remainder negative unless otherwise indicated in HPI Active Hospital Problem List Patient Active Problem List Diagnosis Code ??? Esophageal ulcer K22.10 ??? Hematemesis K92.0 ??? Melena K92.1 ??? GI bleed K92.2 Past Surgical History: Procedure Laterality Date ??? COLONOSCOPY, DIAGNOSTIC 12/04/2012 COLONOSCOPY, DIAGNOSTIC performed by Real Jones MD at [facility] ENDOSCOPY ??? UPPER GI ENDOSCOPY, BIOPSY 12/04/2012 UPPER GASTROINTESTINAL ENDOSCOPY,WITH BIOPSY SINGLE OR MULTIPLE performed by Real Jones MD at [facility] ENDOSCOPY Medications Scheduled Meds: ??? sodium [...] Procedures/Reports: Reviewed in eDH August 21, 2012 [facility]: (per GI office note): EGD performed [...] ulcer. Duodenum 2nd portion~negative. Colonoscopy 12/04/12 at [facility] Impression: ? - The examined portion of [...] with them as documented. Kaiser Doyle MD [facility] Gastroenterology documented in this encounter Plan of Treatment Upcoming Encounters Date Type Department Care Team (Late st Contact Info) Description 01/08/2024 1:45 PM EDT TH Visit (TeleHealth) Radiation Oncology at [address] [phone] Zahira Jaffe PA [facility] H[place] [address] Scheduled Referrals Name Type Priority Associated Diagnoses Orde r Schedule Referral to Thoracic Surgery Outpatient Referral Routine Gastrointestinal hemorrhage, unspecified gastrointestinal hemorrhage type Ordered: 11/29/2016 documented as of this encounter Procedures Procedure Name Priority Date/Time Associated Diagnosis Comments HEMOGRAM Routine 11/30/2016 6:19 AM EDT DIFFERENTIAL, AUTOMATED Routine 09/07/20 17 6:19 AM EDT CBC (WITH DIFF) [...] 6:19 AM EDT) Neutrophils % 60.9 % [facility] Neutr Abs (ANC) 3.83 1.70 - 6.10 x10(3)/[facility] Lymphocytes % 26.1 % [facility] Lymphocytes Abs 1.6 0.9 - 3.2 x10(3)/[facility] Monocytes % 9.4 % [facility] Monocyte Abs 0.6 0.3 - 0.9 x10(3)/[facility] Eosinophils % 2.7 % [facility] Eosinophils Abs 0.2 0.0 - 0.4 x10(3)/[facility] Basophils % 0.6 % [facility] Basophils Abs 0.0 0.0 - 0.1 x10(3)/[facility] Immature Gran % 0.30 % [facility] Comment: Immature granulocytes(IG's)percentage and absolute count will include metamyelocytes, myelocytes, and promyelocytes. Blood smears from CBCs yielding IG's will be scanned manually for concordance. If this scan disagrees with the automated IG or if promyelocytes are noted, a manual differential will be performed. Malika Gran Abs 0.02 0.00 - 0.04 x10(3)/[facility] Blood specimen (specimen) 11/30/2016 6:19 AM EDT 11/30/2016 6:54 AM EDT Narrative Resulting Agency Comment Spec In Lab Luis Fernando Sotelo MD HEMATOLOGY ORDERABLE S [facility] [place] [address] * (ABNORMAL) Hemogram (11/30/2016 6:19 AM EDT) WBC 6.3 4.0 - 9.5 x10(3)/[facility] RBC 3.85(L) 4.58 - 5.54 x10(6)/[facility] Hemoglobin 13.0(L) 13.7 - 16.5 gm/dL [facility] Hematocrit 34.9(L) 40.5 - 48.5 % [facility] MCV 90.6 82.9 - 93.1 fL [facility] MCH 33.8(H) 27.5 - 32.1 pg [facility] MCHC 37.2(H) 32.0 - 35.7 gm/dL [facility] Platelets 267 145 - 357 x10(3)/[facility] RDWSD 38.4 36.0 - 45.0 fL [facility] RDWCV 11.7 11.4 - 13.8 % [facility] MPV 8.6 7.6 - 12.9 fL [facility] nRBC % Auto 0.0 % [facility] nRBC Abs Auto 0.000 0.000 - 0.000 x10(3)/mcL [facility] Blood specimen (specimen) 11/30/2016 6:19 AM EDT 11/30/2016 6:54 AM EDT Narrative Resulting Agency Comment Spec In Lab Luis Fernando Sotelo MD HEMATOLOGY ORDERABLE S [facility] [place] [address] * (ABNORMAL) Basic Metabolic Panel (non-fasting) (11/30/2016 6:19 AM EDT) Glucose Lvl 109 65 - 199 mg/dL [facility] Comment:Diabetes: >=200 mg/d L plus symptoms BUN 9(L) 10 - 20 mg/dL [facility] Creatinine 0.87 0.80 - 1.50 mg/dL [facility] Comment: Please note that the pediatric reference intervals supplied above were not validated at [facility]. Results from pediatric patients should be interpreted in conjunction to the patient's age, height and muscle mass. Sodium 139 135 - 145 mmol/L [facility] Potassium 3.8 3.5 - 5.0 mmol/L [facility] Comment: Please note: ??Patients with WBC >100,000 may have falsely elevated Potassium levels. ??For accurate Potassium quantification in these patients send serum separator tube (gold top) for subsequent determinations. ??Contact the Clinical Chemistry Laboratory if there are any questions. Chloride 103 98 - 107 mmol/L [facility] CO2 23 22 - 31 mmol/L [facility] Anion Gap 13 5 - 15 mmol/L [facility] Calcium 8.6 8.5 - 10.5 mg/dL [facility] Estimated GFR >60 >=60 [facility] Comment: This estimated GFR (eGFR) [...] the following links into your internet browser. [email or web address] Blood specimen (specimen) 11/30/2016 6:19 AM EDT 11/30/2016 6:55 AM EDT Narrative Resulting Agency Comment Spec In Lab Luis Fernando Sotelo MD CHEMISTRY ORDERABLES Performing Organization Address City/State/[facility] Co de Phone Number [facility] [place] [address] * Surgical Pathology Report (11/29/2016 12:21 PM EDT) Surgical Pathology Report [id number] ? Location: The signing pathologist has (i) examined the [...] Soft tse tissue. Sections/Proces sing: (T1) ??dolores [facility] 11/29/2016 12:2 1 PM EDT Kaiser Doyle MD PATHOLOGY/CYTOLOG Y ORDERABLES Performing Organization Address City/[facility]/[place] [address] * Specimen to Pathology (surgical or derm) (11/29/2016 12:21 PM EDT) AP Specimen 11/29/2016 12:2 1 PM EDT 11/29/2016 12:21 PM EDT Narrative [facility] - 11/29/2016 12:21 PM EDT Specimen requisition ordered. ??Separate Pathology report to follow Kaiser Doyle MD PATHOLOGY/CYTOLOG Y ORDERABLES Performing Organization Address City/[facility] [place] [address] * Differential, Automated (11/29/2016 4:50 AM EDT) Neutrophils % 62.0 % [facility] Neutr Abs (ANC) 3.62 1.70 - 6.10 x10(3)/[facility] Lymphocytes % 25.9 % [facility] Lymphocytes Abs 1.5 0.9 - 3.2 x10(3)/[facility] Monocytes % 8.4 % [facility] Monocyte Abs 0.5 0.3 - 0.9 x10(3)/[facility] Eosinophils % 2.7 % [facility] Eosinophils Abs 0.2 0.0 - 0.4 x10(3)/[facility] Basophils % 0.7 % [facility] Basophils Abs 0.0 0.0 - 0.1 x10(3)/[facility] Immature Gran % 0.30 % [facility] Comment: Immature granulocytes(IG's)percentage and absolute count will include metamyelocytes, myelocytes, and promyelocytes. Blood smears from CBCs yielding IG's will be scanned manually for concordance. If this scan disagrees with the automated IG or if promyelocytes are noted, a manual differential will be performed. Malika Gran Abs 0.02 0.00 - 0.04 x10(3)/[facility] Blood specimen (specimen) 11/29/2016 4:50 AM EDT 11/29/2016 5:22 AM EDT Narrative Resulting Agency Comment Spec In Lab Luis Fernando Sotelo MD HEMATOLOGY ORDERABLE S [facility] [place] [address] * (ABNORMAL) Hemogram (11/29/2016 4:50 AM EDT) WBC 5.8 4.0 - 9.5 x10(3)/[facility] RBC 3.59(L) 4.58 - 5.54 x10(6)/[facility] Hemoglobin 11.8(L) 13.7 - 16.5 gm/dL [facility] Hematocrit 33.3(L) 40.5 - 48.5 % [facility] MCV 92.8 82.9 - 93.1 fL [facility] MCH 32.9(H) 27.5 - 32.1 pg [facility] MCHC 35.4 32.0 - 35.7 gm/dL [facility] Platelets 230 145 - 357 x10(3)/[facility] RDWSD 39.4 36.0 - 45.0 fL [facility] RDWCV 11.5 11.4 - 13.8 % [facility] MPV 8.5 7.6 - 12.9 fL [facility] nRBC % Auto 0.0 % [facility] nRBC Abs Auto 0.000 0.000 - 0.000 x10(3)/mcL [facility] Blood specimen (specimen) 11/29/2016 4:50 AM EDT 11/29/2016 5:22 AM EDT Narrative Resulting Agency Comment Spec In Lab Luis Fernando Sotelo MD HEMATOLOGY ORDERABLE S [facility] [place] [address] * (ABNORMAL) Basic Metabolic Panel (non-fasting) (11/29/2016 4:50 AM EDT) Glucose Lvl 109 65 - 199 mg/dL [facility] Comment:Diabetes: >=200 mg/d L plus symptoms BUN 12 10 - 20 mg/dL [facility] Creatinine 0.96 0.80 - 1.50 mg/dL [facility] Comment: Please note that the pediatric reference intervals supplied above were not validated at [facility]. Results from pediatric patients should be interpreted in conjunction to the patient's age, height and muscle mass. Sodium 139 135 - 145 mmol/L [facility] Potassium 3.9 3.5 - 5.0 mmol/L [facility] Comment: Please note: ??Patients with WBC >100,000 may have falsely elevated Potassium levels. ??For accurate Potassium quantification in these patients send serum separator tube (gold top) for subsequent determinations. ??Contact the Clinical Chemistry Laboratory if there are any questions. Chloride 104 98 - 107 mmol/L [facility] CO2 24 22 - 31 mmol/L [facility] Anion Gap 11 5 - 15 mmol/L [facility] Calcium 8.3(L) 8.5 - 10.5 mg/dL [facility] Estimated GFR >60 >=60 [facility] Comment: This estimated GFR (eGFR) [...] the following links into your internet browser. [email or web address] Blood specimen (specimen) 11/29/2016 4:50 AM EDT 11/29/2016 5:22 AM EDT Narrative Resulting Agency Comment Spec In Lab Luis Fernando Sotelo MD CHEMISTRY ORDERABLES [facility] [place] [address] * XR Chest PA or AP 1 [...] 8:31 PM EDT) Neutrophils % 59.9 % [facility] Neutr Abs (ANC) 4.33 1.70 - 6.10 x10(3)/[facility] Lymphocytes % 30.1 % [facility] Lymphocytes Abs 2.2 0.9 - 3.2 x10(3)/[facility] Monocytes % 7.1 % [facility] Monocyte Abs 0.5 0.3 - 0.9 x10(3)/[facility] Eosinophils % 2.1 % [facility] Eosinophils Abs 0.2 0.0 - 0.4 x10(3)/[facility] Basophils % 0.7 % [facility] Basophils Abs 0.0 0.0 - 0.1 x10(3)/[facility] Immature Gran % 0.10 % [facility] Comment: Immature granulocytes(IG's)percentage and absolute count will include metamyelocytes, myelocytes, and promyelocytes. Blood smears from CBCs yielding IG's will be scanned manually for concordance. If this scan disagrees with the automated IG or if promyelocytes are noted, a manual differential will be performed. Malika Gran Abs 0.01 0.00 - 0.04 x10(3)/[facility] Blood specimen (specimen) 11/28/2016 8:31 PM EDT 11/28/2016 8:35 PM EDT Narrative Resulting Agency Comment Spec In Lab Luis Fernando Sotelo MD HEMATOLOGY ORDERABLE S [facility] [place] [address] * (ABNORMAL) Hemogram (11/28/2016 8:31 PM EDT) WBC 7.2 4.0 - 9.5 x10(3)/[facility] LABORATORY RBC 3.76(L) 4.58 - 5.54 x10(6)/[facility] LABORATORY Hemoglobin 12.4(L) 13.7 - 16.5 gm/dL [facility] Hematocrit 34.3(L) 40.5 - 48.5 % [facility] MCV 91.2 82.9 - 93.1 fL [facility] MCH 33.0(H) 27.5 - 32.1 pg [facility] MCHC 36.2(H) 32.0 - 35.7 gm/dL [facility] Platelets 227 145 - 357 x10(3)/[facility] LABORATORY RDWSD 39.5 36.0 - 45.0 fL [facility] RDWCV 11.8 11.4 - 13.8 % [facility] MPV 8.4 7.6 - 12.9 fL [facility] nRBC % Auto 0.0 % [facility] nRBC Abs Auto 0.000 0.000 - 0.000 x10(3)/[facility] LABORATORY Blood specimen (specimen) 11/28/2016 8:31 PM EDT 11/28/2016 8:35 PM EDT Narrative Resulting Agency Comment Spec In Lab Luis Fernando Sotelo MD HEMATOLOGY ORDERABLE S Performing Organization Address City/[facility]/ZIP Co de Phone Number [facility] [place] [address] * Prothrombin Time (11/28/2016 8:31 PM EDT) PT 13.7 12.0 - 15.0 sec [facility] Comment: An INR <2.0 indicates adequate [...] clinical circumstances. INR 1.0 0.9 - 1.1 [facility] Blood specimen (specimen) 11/28/2016 8:31 PM EDT 11/28/2016 8:35 PM EDT Narrative Resulting Agency Comment Spec In Lab Luis Fernando Sotelo MD HEMATOLOGY ORDERABLE S Performing Organization Address City/[facility]/ZIP Co de Phone Number [facility] [place] [address] * (ABNORMAL) Hepatic Function Panel (11/28/2016 8:31 PM EDT) Pathologist [facility] Total Protein 6.6 6.1 - 8.0 gm/dL [facility] Albumin 3.7 3.2 - 5.2 gm/dL [facility] AST 53(H) 0 - 39 unit/L [facility] ALT 59(H) 0 - 55 unit/L [facility] Alk Phos 50 40 - 120 unit/L [facility] Total Bilirubin 0.9 0.2 - 1.3 mg/dL [facility] Bili, Direct 0.2 0.0 - 0.3 mg/dL [facility] Blood specimen (specimen) 11/28/2016 8:31 PM EDT 11/28/2016 8:35 PM EDT Narrative Resulting Agency Comment Spec In Lab Luis Fernando Sotelo MD CHEMISTRY ORDERABLES [facility] [place] [address] * Basic Metabolic Panel (non-fasting) (11/28/2016 8:31 PM EDT) Pathologist [facility] Glucose Lvl 101 65 - 199 mg/dL [facility] Comment:Diabetes: >=200 mg/d L plus symptoms BUN 13 10 - 20 mg/dL [facility] Creatinine 0.88 0.80 - 1.50 mg/dL [facility] Comment: Please note that the pediatric reference intervals supplied above were not validated at [facility]. Results from pediatric patients should be interpreted in conjunction to the patient's age, height and muscle mass. Sodium 142 135 - 145 mmol/L [facility] Potassium 3.9 3.5 - 5.0 mmol/L [facility] Anion Gap 13 5 - 15 mmol/L [facility] Calcium 8.6 8.5 - 10.5 mg/dL [facility] Estimated GFR >60 >=60 [facility] Comment: This estimated GFR (eGFR) [...] the following links into your internet browser. [email or web address] Blood specimen (specimen) 11/28/2016 8:31 PM EDT 11/28/2016 8:35 PM EDT Narrative Resulting Agency Comment Spec In Lab Luis Fernando Sotelo MD CHEMISTRY ORDERABLES [facility] [place] [address] * EKG 12 Lead (11/28/2016 6:28 PM EDT) Ventricular rate 61 BPM MUSE SYSTEM Atrial Rate 61 BPM MUSE SYSTEM P-R Interval 210 ms MUSE SYSTEM QRS Duration 84 ms MUSE SYSTEM Q-T Interval 440 ms MUSE SYSTEM QTC Calculated (Bezet) 442 ms MUSE SYSTEM Calculated P Ransom 22 degrees MUSE SYSTEM Calculated R Ransom -6 degrees MUSE SYSTEM Calculated T Ransom 23 degrees MUSE SYSTEM INTERPRETATION Sinus rhythm with 1st degree A-V block Inferior infarct , age undetermined Abnormal ECG No previous ECGs available Confirmed by MD Morrow Timothy ([id number]) on 11/29/2016 8:22:01 AM MUSE SYSTEM 11/28/2016 6:28 PM EDT 11/29/2016 8:22 AM EDT Luis Fernando Sotelo MD ECG ORDERABLES [employer] [facility] documented in this encounter Visit Diagnoses Not on filedocumented in this encounter Admitting Diagnoses Diagnosis GI bleed Hemorrhage of gastrointestinal tract, unspecified documented in this encounter Administered Medications Inactive Administered Medications - up to 3 most recent administrations Medication Order MAR Action Action Date Dose Rate Site fentaNYL 50 mcg/mL multi-dose injection ONCE PRN, Starting on Sun11/29/16 at 1130, Until Claudia 11/30/16 at 1612, Intra-Operative (Intra-Procedure), Routine Given 11/29/2016 11:50 AM EDT 25 mcg Given 11/29/2016 11:46 AM EDT 25 mcg Given 11/29/2016 11:39 AM EDT 25 mcg lactated Ringers infusion 75 mL/hr, Intravenous, CONTINUOUS, Starting on Sun11/28/16 at 1730, Until Sun11/29/16 at 1729 New Bag 11/29/2016 7:47 AM EDT 75 mL/hr 75 mL/ hr New Bag 11/28/2016 5:59 PM EDT 75 mL/hr 75 mL/hr midazolam (PF) (VERSED) 1 mg/mL multi-dose injection ONCE PRN, Starting on Sun11/29/16 at 1130, Until Claudia 11/30/16 at 1612, Intra-Operative (Intra-Procedure), Routine Given 11/29/2016 11:39 AM EDT 1 mg Given 11/29/2016 11:36 AM EDT 1 mg [...] Adt)2137 (Given - Provider: Elana Patiño RN) 09 (Given - Provider: Stephani Resendiz, ANA) sodium chloride 0.9 % flush 5 mL 5 mL, Intravenous, 2 TIMES DAILY, First dose on Sun11/28/16 at 2100, Until Discontinued, Routine 2039 (Given - Provider: Lizbeth Yanez RN) 0915 (Given - Provider: Stephani Resendiz, ANA)1058 ([facility] Hold - Provider: Admin Adt - Reason: Transfer to a Procedural area)1320 ([facility] Unhold - Provider: Admin Adt)2137 (Given - Provider: Elana Patiño RN) 0922 (Given - Provider: Stephani Resendiz, ANA) Continuous Medication Order 11/28/2016 11/29/2016 11/30/2016 lactated Ringers infusion 75 mL/hr, Intravenous, CONTINUOUS, Starting on Sun11/28/16 at 1730, Until Sun11/29/16 at 1729 1759 (New Bag - Provider: Clover Lucero, ANA) 0747 (New Bag - Provider: Stephani Resendiz RN)1058 ([facility] Hold - Provider: Admin Adt - Reason: Transfer to a Procedural area)1320 ([facility] Unhold - Provider: Admin Adt) PRN Medication Order 11/28/2016 11/29/2016 11/30/2016 acetaminophen (TYLENOL) tablet 650 mg 650 mg, Oral, EVERY 6 HOURS PRN, Starting on Sun11/28/16 at 1714, Until Sun11/30/16 at 1612, Pain, Fever, Administer for temperature greater than or equal to 38.2 degrees celsius. Maximum daily dose of acetaminophen from all sources not to exceed 4,000 mg., Routine 1058 ([facility] Hold - Provider: Admin Adt - Reason: Transfer to a Procedural area)1320 ([facility] Unhold - Provider: Admin Adt) fentaNYL 50 mcg/mL multi-dose injection (CANCELED) ONCE PRN, Starting on Sun11/29/16 at 1130, Until Sun11/30/16 at 1612, Intra-Operative (Intra-Procedure), Routine 1130 (Given - Provider: Ronnie Knutson RN)1136 (Given - Provider: Fiordaliza Knutson RN)1139 (Given - Provider: Fiordaliza Knutson, ANA)1146 (Given - Provider: Fiordaliza Knutson RN)1150 (Given - Provider: Fiordaliza Knutson RN) lidocaine (XYLOCAINE) 10 mg/mL (1 %) injection 3 mg 3 mg (0.3 mL), Subcutaneous, ONCE PRN, 1 dose, Starting on Sun11/28/16 at 1714, Until Sun11/30/16 at 1612, for discomfort with PIV insertion, Routine 1058 ([facility] Hold - Provider: Admin Adt - Reason: Transfer to a Procedural area)1320 ([facility] Unhold - Provider: Admin Adt) midazolam (PF) (VERSED) 1 mg/mL multi-dose injection (CANCELED) ONCE PRN, Starting on Sun11/29/16 at 1130, Until Sun11/30/16 at 1612, Intra-Operative (Intra-Procedure), Routine 1130 (Given - Provider: Ronnie Knutson, RN)1136 (Given - Provider: Fiordaliza Knutson, RN)1139 (Given - Provider: Fiordaliza Knutson, RN) ondansetron (ZOFRAN) injection 4 mg(Linked Group 1) 4 mg, Intravenous, EVERY 8 HOURS PRN, Starting on Sun11/28/16 at 1714, Until Claudia 11/30/16 at 1612, Nausea, May repeat times one in 30 minutes if ineffective. If multiple antiemetics are ordered, give ondansetron first. 1058 ([facility] Hold - Provider: Admin Adt - Reason: Transfer to a Procedural area)1320 ([facility] Unhold - Provider: Admin Adt) ondansetron (ZOFRAN) [...] take PO, may give IV., Routine 1058 ([facility] Hold - Provider: Admin Adt - Reason: Transfer to a Procedural area)1320 ([facility] Unhold - Provider: Admin Adt) sodium chloride 0.9 % flush 5-20 mL 5-20 mL, Intravenous, EVERY 1 MIN PRN, Starting on Sun11/28/16 at 1714, Until Claudia 11/30/16 at 1612, flush, Flush pertains to all indwelling lines. Flush per protocol found in the job aid using the link provided on this medication record., Routine 1058 ([facility] Hold - Provider: Admin Adt - Reason: Transfer to a Procedural area)1320 ([facility] Unhold - Provider: Admin Adt) Linked Groups [...] first. documented in this encounter Care Teams Hogshead Press Operator Relationship Specialty Start Date End Date Marin Patton MD PCP - General 02/15/10 01/25/17 documented as of this encounter
--- OUTSIDE RECORDS SUMMARY | 2023-10-11 01:50 | XMS_ITS | Encounter Summary ---
Author Organization [facility] [place] [address] Care Team Providers Care Pelt Inspector Name Role Phone Marin Patton MD Primary Care Provider [phone] Encounter Details Date Type Department Care Team (Late Contact Info) Description 11/29/2016 [place] [address] Marin Patton MD [address] [place], [place] [id number] Social History Tobacco Use Types Packs/Day Years [...] TH Visit (TeleHealth) Radiation Oncology at [address] [address] Zahira Jaffe PA [facility] [place] [address] documented as of this encounter Procedures Procedure Name Priority Date/Time Associated Diagnosis Comments UPPER GI ENDOSCOPY Routine 11/29/2016 11 :22 AM EDT documented in this encounter Results * UPPER GI ENDOSCOPY (11/29/2016 11:22 AM EDT) Pathologist [facility] UPPER GI ENDOSCOPY [facility] Procedure Date: 11/29/2016 11:22 AM ? Patient Name: Amanuel Hussein ? Date of : 1955 ? Age: 61 ? Order #: [id number] ? Instrument Name: [id number] ? Procedure: ? Upper GI endoscopy Indications: ? Madhavi Patient Profile: ? This is a 61 year old male. Refer to ? note in patient chart for ? documentation of history and physical. Providers: ? Kaiser Doyle MD, Fiordaliza Knutson, ? RN, Amanuel Garduno, Keith Daugherty MD Referring MD: ?Marin Patton MD Requesting Provider: Zaheer Meyer Medicines: ? Midazolam 4 mg IV, Fentanyl 200 ? micrograms IV Complications: ? No immediate complications. Procedure: ? Pre-Anesthesia Assessment: ? - Prior to the procedure, a History ? and Physical was performed, and ? patient medications, allergies and ? sensitivities were reviewed. The ? patient's tolerance of previous ? anesthesia was reviewed. ? - The risks and benefits of the ? procedure and the sedation options ? and risks were discussed with the ? patient. All questions were answered ? and informed consent was obtained. ? - Patient identification and proposed ? procedure were verified prior to the ? procedure by the physician and the ? nurse. The procedure was verified in ? the pre-procedure area in the ? endoscopy suite. ? - ASA Grade Assessment: II - A ? patient with mild systemic disease. ? The procedure, indications, benefits, ? risks [...] The upper GI ? endoscopy was accomplished with ease. ? The patient tolerated the procedure ? well. ? Findings: ? The mucosa [...] ? esophagitis. ? - Non-bleeding clean based gastric ? ulcer in the cardia. Suspect ? secondary to mechanical irritation ? from hiatal hernia. This was likely ? the source of the patients melena. ? Biopsied. ? - Otherwise normal stomach and normal ? examined duodenum without any source ? of bleeding. Recommendation: ?- If no evidence of ongoing bleeding ? patient can be discharged from the ? hospital ? - Increase to a twice daily Proton ? pump inhibitor ? - Barium swallow to further define ? hiatal hernia ? - Referral to surgery for ? consideration of hiatal hernia repair ? - Follow up pathology ? Procedure Code(s): ?? --- Professional --- ? 37822, Esophagogastroduod enoscopy, ? flexible, transoral; with biopsy, ? single or multiple CPT copyright 2016 [employer]. All rights reserved. The codes documented in this report are preliminary and upon him coder review may be revised to meet current compliance requirements. Attending Participation: ? I was present and participated during the entire ? procedure, including non-johnson portions. ? I was present during the intraservice time as ? documented by the sedation RN. ? Dr. Austin Doyle ___ Kaiser Doyle MD 11/29/2016 12:36:49 PM Number of Addenda: 0 Note Initiated On: 11/29/2016 11:22 AM PROVATION 11/29/2016 11:2 2 AM EDT Marin Patton MD GENERAL SURGICAL ORD ERABLES PROVATION documented in this encounter Visit Diagnoses Not on filedocumented in this encounter Care Teams Pelt Inspector Relationship Specialty Start Date End Date Marin Patton MD PCP - General 02/15/10 01/25/17 documented as of this encounter
--- OUTSIDE RECORDS SUMMARY | 2023-10-11 01:51 | XMS_ITS | Encounter Summary ---
[place] [address] Care Team Providers Care Die Repairer Forging Name Role Phone Marin Patton MD Primary Care Provider [phone] Encounter Details Date Type Department Care Team (Latest Contact Info) Description 11/26/2016 - 11/26/2016 11:59 PM EDT Hospital Encounter [place] [address] [place] [address] Pain Discharge Disposition: Home Social History Tobacco Use [...] Start Date End Date esomeprazole (NEXIUM) 40 mg capsule Take 40 mg by mouth 2 times daily. 11/29/2016 documented as of this encounter Plan of Treatment Upcoming Encounters Date Type Department Care Team (Late st Contact Info) Description 01/08/2024 1:45 PM EDT TH Visit (TeleHealth) Radiation Oncology at [address] [address] Zahira Jaffe PA [facility] [address] [place] [address] documented as of this encounter Procedures Procedure Name Priority Date/Time Associated Diagnosis Comments FILM LIBRARY STORAGE ONLY CT CHEST ABDOMEN PELVIS Routine 11/26/2016 12:00 AM EDT Pain documented in this encounter Results * Film Library- Storage Only CT Chest Abdomen Pelvis (11/26/2016 12:00 AM EDT) Narrative [facility] - 11/28/2016 1:19 PM EDT This exam is for storage only and is auto-finalizing. Zaheer Meyer DO G FILM LIBRARY ORD ERABLES Performing Organization Address City/State/[facility] Co de Phone Number [place], [place] documented in this encounter Visit Diagnoses Diagnosis Pain Generalized pain documented in this encounter Care Teams Die Repairer Forging Relationship Specialty Start Date End Date Marin Patton MD PCP - General 02/15/10 01/25/17 documented as of this encounter
--- OUTSIDE RECORDS SUMMARY | 2023-10-11 01:51 | XMS_ITS | Encounter Summary ---
Author Organization [facility] Address [address] [place] [id number] Care Team Providers Care Ropeman Name Role Phone Lisa Tse NP Primary Care Provider [phone] Encounter Details Date Type Department Care Team (Late st Contact Info) Description 08/21/2012 Results Only [facility] Laboratory Services - [facility] ([facility]) [address] [place] [address] Alex Rowan MD [address] [place], [place] [address] Social History Tobacco Use Types Packs/Day Years Used Date Smoking Tobacco: Never Assessed Sex and Gender Information Value Date Recorded Sex Assigned at Not on file Gender Identity Not on file Sexual Orientation Not on file documented as of this encounter Plan of Treatment Not on file documented as of this encounter Procedures Procedure Name Priority Date/Time Associated Diagnosis Comments SURGICAL PATHOLOGY Routine 08/21/2012 21 :40 EDT documented in this encounter Results * SURGICAL PATHOLOGY (08/21/2012 21:40 EDT) Pathology Report: SURGICAL PATHOLOGY REPORT Reports generated via electronic interface contain original data; however they are lacking the format of the original report. Caution should be taken when reading/interpreti ng unformatted reports. Name: ? AMANUEL HUSSEIN ? Accession #: ? [id number] ? : ? 1955 (Age: 57) ??M ? Collect Date: ? 08/21/2012 ? Location: ? [facility] ? Receive Date: ? 08/21/2012 ? Provider: ALEX ROWAN MD Copy to: CHRISTIANA ROE MD ? Final Pathologic Diagnosis: A. ?Small bowel, duodenum, 2nd portion, biopsies: ?1. ??Duodenal mucosa with no specific pathologic features. B. ?? Esophagus, lower, 40 cm, biopsies: ? 1. ??Squamocolumnar mucosa with mild chronic inflammation. ? 2. ??Negative for ulcer. ??See comment. Comment: ? Deeper levels of tissue were reviewed on specimen (B). ??(Dr. Hirsch)/[facility] Document reviewed and electronically signed by: STARR HIRSCH MD Report ??Date: 08/23/2012 17:03 By the signature above, the attending physician certifies that he/she has personally conducted a gross and/or microscopic examination of the described specimens and rendered or confirmed the above diagnosis. Specimen(s) Received: A. ?2nd portion duodenum (#1) B. ? Lower esophagus 40 cm (#2) Clinical History: ? Hematemesis, melena, H/O esophageal ulcer Gross Description: ? Received in formalin labelled Amanuel Hussein and #1-2nd portion duodenum are two light tse biopsies measuring 0.3 x 0.3 x 0.2 cm each. ??The specimens are submitted intact as (A1). Received in formalin labelled Amanuel Hussein and #2-lower esophagus 40 cm is a 0.4 x 0.3 x 0.1 cm light tse biopsy. ??The specimen is submitted intact as (B1). ??(TIAAR Nicole)/kmm End of Report [facility] 08/21/2012 21:4 0 EDT 08/21/2012 21:40 EDT Alex Rowan MD PATHOLOGY ORDERABLES Performing Organization Address City/State/[facility] Co de Phone Number [facility] [address] [place] [address] documented in this encounter Visit Diagnoses Not on filedocumented in this encounter Care Teams Ropeman Relationship Specialty Start Date End Date Lisa Tse NP [address] [place] [address] [address] [place] [address] PCP - General 12/10/09 08/31/15 documented as of this encounter
--- OUTSIDE RECORDS SUMMARY | 2023-10-11 01:51 | XMS_ITS | Clinical Summary ---
Author Organization [facility] Address [address] [place] [address] Care Team Providers Care Apartment Maintenance Name Role Phone Clara Wood MD Primary Care Provider [phone] Encounters Date Type Department Care Team Description 07/12/2023 Lab Requisition [facility] Pathology & Laboratory Medicine - [address] [address] Outr Resulting Lab, Provider from Last 3 Months Social History Tobacco Use Types Packs/Day Years Used Date Smoking Tobacco: Never Assessed Interpersonal Safety Answer Date Record ed Physically Hurt Never 10/26/2019 Verbally Threaten Not on file 10/26/2019 Sex and Gender Information Value Date Recorded Sex Assigned at Not on file Gender Identity Not on file Sexual Orientation Not on file Plan of Treatment Health Maintenance Due Date Last Done Comments RSV Immunization ( o r 60+ Years) (1 - 1-dose 60+ series) 2014 Fall Risk Screening 2019 COVID-19 Vaccine (24 season) 2022 Hepatitis C Screen Completed 07/12/2023, 03/28/2021 Procedures Procedure Name Priority Date/Time Associated Diagnosis Comments HEPATITIS A ANTIBODY IGM Today 07/12/2023 7:15 EDT HEPATITIS B SURFACE ANTIBODY Routine 07/12/2023 7:15 EDT HEPATITIS B CORE ANTIBODY (TOTAL) Routine 07/12/2023 7:15 EDT HEPATITIS B SURFACE ANTIGEN Routine 07/12/2023 7:15 EDT HEPATITIS C AB W REFLEX TO HCV RNA BY PCR Routine 07/12/2023 7:15 EDT HEPATITIS A TOTAL ANTIBODY W REFLEX Routine 07/12/2023 7:15 EDT from Last 3 Months Results * HEPATITIS C AB W REFLEX TO HCV RNA BY PCR (07/12/2023 7:15 EDT) Hep C Antibody Negative Negative 07/12/2023 19:53 EDT [facility] Blood VENOUS BLOOD / Unknown 07/12/2023 7:15 EDT 07/12/2023 17:27 EDT Provider Outr Resulting Lab CHEMISTRY & BLOOD GAS ORDERABLES Performing Organization Address [facility] Co de Phone Number [facility] [address], [place] [phone] * HEPATITIS A ANTIBODY IGM (07/12/2023 7:15 EDT) Hepatitis A Antibody, IgM Negative Negative 07/12/2023 21:14 EDT [facility] Blood VENOUS BLOOD / Unknown 07/12/2023 7:15 EDT 07/12/2023 17:27 EDT Narrative [facility] - 07/12/2023 21:14 EDT The results of this assay can be falsely lowered due to the consumption of Biotin. Provider Outr Resulting Lab CHEMISTRY & BLOOD GAS ORDERABLES Performing Organization Address [facility]/ZIP Co de Phone Number [facility] [address], [place] [phone] * (ABNORMAL) HEPATITIS A TOTAL ANTIBODY W REFLEX (07/12/2023 7:15 EDT) Hepatitis A Antibody, Total Positive(A ) Negative 07/12/2023 20:12 EDT [facility] Blood VENOUS BLOOD / Unknown 07/12/2023 7:15 EDT 07/12/2023 17:27 EDT Narrative [facility] - 07/12/2023 20:12 EDT The result of this assay can be falsely elevated (Positive) due to the consumption of Biotin. Provider Outr Resulting Lab CHEMISTRY & BLOOD GAS ORDERABLES Performing Organization Address [facility] Co de Phone Number [facility] [address] [place] [address] * HEPATITIS B CORE ANTIBODY (TOTAL) (07/12/2023 7:15 EDT) Pathologist [facility] Hepatitis B Core Ab, Total Negative Negative 07/12/2023 19:57 EDT [facility] Blood VENOUS BLOOD / Unknown 07/12/2023 7:15 EDT 07/12/2023 17:27 EDT Provider Outr Resulting Lab CHEMISTRY & BLOOD GAS ORDERABLES Performing Organization Address [facility] de Phone Number [facility] [address] [place] [address] * HEPATITIS B SURFACE ANTIBODY (07/12/2023 7:15 EDT) Pathologist [facility] Hep B Surface Ab, Quantitative <3.1 See Note mIU/mL 07/12/2023 19:11 EDT [facility] Comment: Reference Range for Hep B Surface Ab, Quant: Positive: >= 10.0 mIU/mL Negative: ??< 10.0 mIU/mL Patient is presumed to not be immune to infection with Hepatitis B Virus. Hep B Surface Ab, Qualitative Negative See Note 07/12/2023 19:11 EDT [facility] Comment: Reference Range for Hep B Surface Ab, Qual: Unvaccinated: ??Negative Vaccinated: ??Positive Blood VENOUS BLOOD / Unknown 07/12/2023 7:15 EDT 07/12/2023 17:27 EDT Provider Outr Resulting Lab CHEMISTRY & BLOOD GAS ORDERABLES Performing Organization Address City/[facility]/ZIP Co de Phone Number [facility] [address] [place] [address] * HEPATITIS B SURFACE ANTIGEN (07/12/2023 7:15 EDT) Hep B Surface Ag Negative Negative 07/12/2023 19:18 EDT [facility] Blood VENOUS BLOOD / Unknown 07/12/2023 7:15 EDT 07/12/2023 17:27 EDT Provider Outr Resulting Lab CHEMISTRY & BLOOD GAS ORDERABLES [facility] [address], [place] [phone] from Last 3 Months Care Teams Apartment Maintenance Relationship Specialty Start Date End Date Clara Wood MD [address] [place] [phone] PCP - General 09/01/15
--- OUTSIDE RECORDS SUMMARY | 2023-10-11 01:51 | XMS_ITS | Encounter Summary ---
Author Organization [facility] [place] [address] Care Team Providers Care Container Shop Welder Name Role Phone Marin Patton MD Primary Care Provider Encounter Details Date Type Department Care Team ([facility] Contact Info) Description 12/04/2012 12:05 PM EDT Office [place] [address] CLINIC, Jing Hopkins, RN GERD (gastroesophageal reflux disease) (Primary Dx) Discharge Disposition: Home Social History Tobacco Use [...] of this encounter Progress Notes * Jing Noland, RN - 12/04/2012 1:49 PM EDT Sommer capsule deployed at 32 cm below incisors during EGD by Dr. Jones. First pH 6.2. Study is beingdone on Nexium 40 mgm twice per day. documented in this encounter Plan of Treatment Upcoming Encounters Date Type Department Care Team (Late Contact Info) Description 01/08/2024 1:45 PM EDT TH Visit (TeleHealth) Radiation Oncology at [address] [phone] Zahira Jaffe PA [facility] [address] [place] [address] documented as of this encounter Visit Diagnoses Diagnosis GERD (gastroesophageal reflux disease)- Primary Esophageal reflux documented in this encounter Care Teams Container Shop Welder Relationship Specialty Start Date End Date Marin Patton MD PCP - General 02/15/10 01/25/17 documented as of this encounter
--- OUTSIDE RECORDS SUMMARY | 2023-10-11 01:51 | XMS_ITS | Encounter Summary ---
Author Organization [facility] Address [address] [place] [address] Care Team Providers Care Long Line Teamster Name Role Phone Unavailable Primary Care Provider Unavailabl e Encounter Details Date Type Department Care Team (Late st Contact Info) Description 10/08/2006 Results Only [facility] [address] [place] [address] Ori Rowan MD [address] [place], [place] [phone] Social History Tobacco Use Types Packs/Day Years Used Date Smoking Tobacco: Never Assessed Sex and Gender Information Value Date Recorded Sex Assigned at Not on file Gender Identity Not on file Sexual Orientation Not on file documented as of this encounter Plan of Treatment Not on file documented as of this encounter Procedures Procedure Name Priority Date/Time Associated Diagnosis Comments SURGICAL PATHOLOGY Routine 10/08/2006 0:00 EDT documented in this encounter Results * SURGICAL PATHOLOGY (10/08/2006 0:00 EDT) Pathology Report: SURGICAL PATHOLOGY REPORT Reports generated via electronic interface contain original data; however they are lacking the format of the original report. Caution should be taken when reading/interpretin g unformatted reports. Name: ? NASEEMAMANUEL Dickinson ? Accession #: ? [id number] ? : ? 1955 (Age: 51) ??M ? Collect Date: ? 10/08/2006 ? Location: ? [facility] ? Receive Date: ? 10/08/2006 ? Provider: ORI ROWAN MD Copy to: DAVID CARUSO FOXER ? Final Pathologic Diagnosis: A. ?Stomach, fundus, polyp, biopsy: 1. ?Fundic gland polyp. B. ?Stomach, body, biopsy: 1. ?No specific pathologic features. C. ?Esophagus, gastroesophageal junction, biopsy: 1. ?Squamous and gastric-type mucosa with inflammatory exudate. ??See comment. D. ?Colon, transverse, polyp, biopsy: ? 1. ?? No specific pathologic features. ??See comment. Comment: ? Comment 1: Inflammatory exudate suggests an ulcer in the vicinity of the biopsy. PAS stain for fungi is negative. ?? Comment 2: Deeper levels have been examined. ??(Dr. Fay)/[facility] Document reviewed and electronically signed by: Kobi Fay MD Report ??Date: 10/10/2006 15:12 By the signature above, the attending physician certifies that he/she has personally conducted a gross and/or microscopic examination of the described specimens and rendered or confirmed the above diagnosis. Specimen(s) Received: A. ?Fundic gland polyp B. ? Bx gastric body C. ? Bx EG junction ulcers D. ? Transverse colon polyp Clinical History: ? H/O esophageal ulcers, screening colonoscopy/polyp Gross Description: ? Received in Ariele's fixative labelled Jovita and #1 fundic gland polyp are two pieces of firm tissue, each of which measures 0.2 x 0.2 x 0.2 cm which are submitted intact as (A). Received in Hollande's fixative labelled Hosingloy and #2 bx gastric body is a 0.3 x 0.2 x 0.2 cm piece of tissue which is submitted intact as (B). ?? Received in Hollande's fixative labelled Hosingloy and #3 bx EG junction ulcers are four pieces of tissue which range from 0.3 x 0.1 x 0.1 cm to 0.1 x 0.1 x 0.1 cm with two submitted as (C1) and the remaining two as (C2). Received in Hollande's fixative labelled Hosingloy and #4 transverse colon polyp is a 0.3 x 0.2 x 0.1 cm firm piece of tissue which is submitted intact as (D). ??(Rojas Nicole)/[facility] End of Report NED CASTE[facility] 10/08/2006 10/08/2006 15: 51 EDT Ori Rowan MD PATHOLOGY ORDERABLES [facility] [address] [place] [address] documented in this encounter Visit Diagnoses Not on filedocumented in this encounter
--- OUTSIDE RECORDS SUMMARY | 2023-10-11 01:51 | XMS_ITS | Encounter Summary ---
Author Organization [facility] Address [address] [place] [address] Care Team Providers Care Car Dispatcher Name Role Phone Unavailable Primary Care Provider Unavailabl e Encounter Details Date Type Department Care Team (Late st Contact Info) Description 12/08/2009 Results Only [facility] - [facility] ([facility]) [address] [place], [place] [address] Ori Rowan MD [address] [place] [address] Social History Tobacco Use Types [...] Date/Time Associated Diagnosis Comments SURGICAL PATHOLOGY Routine 12/08/2009 0:00 EDT documented in this encounter Results * SURGICAL PATHOLOGY (12/08/2009 0:00 EDT) Pathology Report: SURGICAL PATHOLOGY REPORT ? Reports generated via electronic interface contain original data; ? however they are lacking the format of the original report. ? Caution should be taken when reading/interpreti ng unformatted reports. ? Name: ? AMANUEL HUSSEIN ? Accession #: ? [id number] ? : ? 1955 (Age: 54) ??M ? Collect Date: ? 12/08/2009 ? Location: ? [facility] ? Receive Date: ? 12/08/2009 ? Provider: ORI ROWAN MD ? Copy to: CHRISTIANA BHUPINDER MD ? Final Pathologic Diagnosis: ? A. ?Stomach, antrum, biopsies: ? 1. ?Oxyntic mucosa with no pathologic findings. ? B. ?Stomach, body, biopsies: ? 1. ?Oxyntic mucosa with no pathologic findings. ? C. ?Esophagogastric junction at 40 cm, biopsy: ? 1. ?Fibrinopurulent exudate and granulation tissue consistent with ? ulcer. ? - PAS-amylase stain is negative for fungal organisms. ? Document reviewed and electronically signed by: ? GINA MOUNT MD ? Report ??Date: 12/13/2009 14:20 ? By the signature above, the attending physician certifies that he/she has ? personally conducted a gross and/or microscopic examination of the described ? specimens and rendered or confirmed the above diagnosis. ? Specimen(s) Received: ? A. ?Bx gastric antrum ? B. ? Bx gastric body ? C. ? Bx EG junction at 40 cm ? Clinical History: ? GI bleed ? Gross Description: ? Received in Earnestine's fixative labelled Amanuel Hussein and bx ? gastric antrum are two tse-pink irregular soft tissue fragments averaging 0.3 x 0.3 x 0.2 cm. ??The specimens are entirely submitted as (A). ? Received in [facility]'s fixative labelled Amanuel Hussein and bx gastric ?? body are two tse-pink irregular soft tissue fragments averaging 0.5 x 0.2 x 0.2 cm. ??The specimens are entirely submitted as (B). ? [facility] fix[facility] labelled Amanuel Hussein and bx EG ? junction at 40 cm is a tse-pink 0.2 x 0.2 x 0.2 cm soft tissue fragment. ??The ?? specimen is entirely submitted as (C). ??(Kirstin Grossman/pietro ? End of Report ? NED CASTELLANO 12/08/2009 12/08/2009 17: 19 EDT Ori Rowan MD PATHOLOGY ORDERABLES [facility] [address] [place] [address] documented in this encounter Visit Diagnoses Not on filedocumented in this encounter
--- OUTSIDE RECORDS SUMMARY | 2023-10-11 01:51 | XMS_ITS | Encounter Summary ---
Author Organization [facility] Address [address] [place] [address] Care Team Providers Care Seasonal Tax Preparer Name Role Phone Clara Wood MD Primary Care Provider [phone] Encounter Details Date Type Department Care Team (Late st Contact Info) Description 03/29/2021 Lab Requisition [facility] Pathology & Laboratory Medicine - [address] [address] Outr Resulting Lab, Provider Social History Tobacco Use Types Packs/Day [...] Name Priority Date/Time Associated Diagnosis Comments HEPATITIS C AB W REFLEX TO HCV RNA BY PCR Routine 03/28/2021 14:28 EST documented in this encounter Results * HEPATITIS C AB W REFLEX TO HCV RNA BY PCR (03/28/2021 14:28 EST) Hep C Antibody Negative Negative 2021 11:43 EST [facility] Blood VENOUS BLOOD / Unknown 03/28/2021 14:28 EST 03/29/2021 18:08 EST Provider Outr Resulting Lab CHEMISTRY & BLOOD GAS ORDERABLES [facility] [address] [place] [address] documented in this encounter Visit Diagnoses Not on filedocumented in this encounter Care Teams Seasonal Tax Preparer Relationship Specialty Start Date End Date Clara Wood MD [address] [place] [phone] PCP - General 09/01/15 documented as of this encounter
--- OUTSIDE RECORDS SUMMARY | 2023-10-11 01:51 | XMS_ITS | Encounter Summary ---
[facility] [place] [address] Care Team Providers Care Broke Handler Name Role Phone Marin Pattno MD Primary Care Provider [phone] Reason for Visit * Reason Onset Date Comments Other 11/08/2012 Pt Rescheduled Encounter Details Date Type Department Care Team (Late st Contact Info) Description 11/08/2012 [place] [address] Shreya Dallas Other (Pt Rescheduled) Social History Tobacco Use Types Packs/Day Years [...] encounter Miscellaneous Notes * Telephone Encounter - Shreya Dallas - 11/08/2012 [...] pt at his work at his request ([phone]). -bcj documented in this encounter Plan of Treatment Upcoming Encounters Date Type Department Care Team (Late st Contact Info) Description 01/08/2024 1:45 PM EDT TH Visit (TeleHealth) Radiation Oncology at [address] [phone] Zahira Jaffe PA [facility] [place] [address] documented as of this encounter Visit Diagnoses Not on filedocumented in this encounter Care Teams Broke Handler Relationship Specialty Start Date End Date Marin Patton MD PCP - General 02/15/10 01/25/17 documented as of this encounter
--- OUTSIDE RECORDS SUMMARY | 2023-10-11 01:51 | XMS_ITS | Encounter Summary ---
Author Organization [facility] Address [address] [place] [address] Care Team Providers Care Belt Loop Maker Name Role Phone Clara Roe MD Primary Care Provider [phone] Encounter Details Date Type Department Care Team (Late st Contact Info) Description 08/06/2017 Results Only [facility] [phone] Mazin Mcqueen MD [address] [place] [address] [place] [address] Social History Tobacco Use Types Packs/Day Years Used Date Smoking Tobacco: Never Assessed Sex and Gender Information Value Date Recorded Sex Assigned at Not on file Gender Identity Not on file Sexual Orientation Not on file documented as of this encounter Plan of Treatment Not on file documented as of this encounter Procedures Procedure Name Priority Date/Time Associated Diagnosis Comments SURGICAL PATHOLOGY Routine 08/06/2017 16 :47 EDT documented in this encounter Results * SURGICAL PATHOLOGY (08/06/2017 16:47 EDT) Pathology Report: SURGICAL PATHOLOGY REPORT Reports generated via electronic interface contain original data; however they are lacking the format of the original report. Caution should be taken when reading/interpreting unformatted reports. Name: ? AMANUEL BEE ? Accession #: ? [id number] ? : ? 1955 (Age: 62) ??M ? Collect Date: ? 08/06/2017 ? Location: ? [facility] ? Receive Date: ? 08/06/2017 ? Provider: MAZIN MCQUEEN MD Copy to: CLARA ROE MD ? [...] remaining) pattern: Grade 3. ? - Total [place] score: 7. ? - Percentage of pattern 4: 60%. ? - Percentage of tissue involved by tumor: 75%. ? - Perineural invasion: Present. ? - Extraprostatic extension: Suspicious, see comment. H. PROSTATE, BASE, LEFT, MEDIAL, BIOPSY: - ??Adenocarcinoma of the prostate. See comment. ? - Primary (predominant) pattern: Grade 4. ? - Secondary (worst remaining) pattern: Grade 3. ? - Total [place] score: 7. ? - Percentage of pattern [...] remaining) pattern: Grade 3. ? - Total [place] score: 7. ? - Percentage of pattern 4: 70%. ? - Percentage of tissue involved by tumor: 75%. ? - Perineural invasion: Present. K. PROSTATE, APEX, LEFT, LATERAL, BIOPSY: - ??Adenocarcinoma of the prostate. See comment. ? - Primary (predominant) pattern: Grade 4. ? - Secondary (worst remaining) pattern: Grade 3. ? - Total [place] score: 7. ? - Percentage of pattern 4: 70%. ? - Percentage of tissue involved by tumor: 100%. ? - Perineural invasion: Present. L. PROSTATE, APEX, LEFT, MEDIAL, BIOPSY: - ??Adenocarcinoma of the prostate. See comment. ? - Primary (predominant) pattern: Grade 4. ? - Secondary (worst remaining) pattern: Grade 3. ? - Total [place] score: 7. ? - Percentage of pattern 4: 60%. ? - Percentage of tissue involved by tumor: 100%. ? - Perineural invasion: Present. Comment: In the left lateral base biopsy, a focus of prostatic adenocarcinoma is surrounded by adipocytes, which is very suspicious for extraprostatic extension. Cabinetmaker Helper slides of this case were reviewed at intradepartmental consultation conference. ?? New Prostate Cancer Grading System*: This system was developed based on a study of greater than 20,000 prostate cancer cases treated with radical prostatectomy and greater than 5000 cases treated by radiation therapy. The system was developed to provide a smaller number of grades with the most significant prognostic differences, with Group 1 having the best prognosis and Group 5 the worst prognosis. The highest grade group is reported for each biopsy series on a patient. Grade Group 1 (Sarah score d6) Grade Group 2 (Sarah score 3+4=7) Grade Group 3 (Sarah score 4+3=7) Grade Group 4 ([place] score 8) Grade Group 5 ([place] scores 9-10) *CHELLE Dumont et al: A Contemporary Cancer Grading System: A Validated Alternative to the Sarah Score. Eur Uro 2015 69(3):428-435 Laurence Murphy 08/09/2017 7:31 AM Document reviewed and electronically signed by: KATIE SAMSON MD Report ??Date: 08/09/2017 15:08 By the signature above, the attending physician certifies that he/she has personally conducted a gross and/or microscopic examination of the described specimens and rendered or confirmed the above diagnosis. Specimen(s) Received: A. ??Rt base lateral B. [...] A. ?Received in formalin labelled with proper patient identification (initials H, M) and 1. Rt base lateral is a single tse-white tissue core (1.5 cm in length x 0.1 cm in diameter). Submitted intact in A1. B. ?Received in formalin labelled with proper patient identification (initials H, M) and 2. Rt base medial are two tse-white tissue cores (1.4 cm and 0.4 cm in length, and each 0.1 cm in diameter). Entirely submitted in B1. C. ?Received in formalin labelled with proper patient identification (initials H, M) and 3. Rt mid lateral is a single tse-white tissue core (1.4 cm in length x 0.1 cm in diameter). Submitted intact in C1. D. ?Received in formalin labelled with proper patient identification (initials H, M) and 4. Rt mid medial are two tse-white tissue cores (1.7 cm and 0.2 cm in length, and each 0.1 cm in diameter). Entirely submitted in D1. E. ? Received in formalin labelled with proper patient identification (initials H, M) and 5. Rt apex lateral is a single tse-white tissue core (2.0 cm in length x 0.1 cm in diameter). Submitted intact in E1. F. ?Received in formalin labelled with proper patient identification (initials H, M) and 6. Rt apex medial are two tse-white tissue cores (1.7 cm and 0.6 cm in length, and each 0.1 cm in diameter). Entirely submitted in F1. G. ?Received in formalin labelled with proper patient identification (initials H, M) and 7. Lt base lateral are two tse-white tissue cores (0.5 cm and 0.5 cm in length, and each 0.1 cm in diameter). Entirely submitted in G1. H. ?Received in formalin labelled with proper patient identification (initials H, M) and 8. Lt base medial is a single tse-white tissue core (1.9 cm in length x 0.1 cm in diameter). Submitted intact in H1. I. ?Received in formalin labelled with proper patient identification (initials H, M) and 9. Lt mid lateral is a single tse-white tissue core (1.5 cm in length x 0.1 cm in diameter). Submitted intact in I 1. J. ?Received in formalin labelled with proper patient identification (initials H, M) and 10. Lt mid medial are two tse-white tissue cores (1.7 cm and 0.3 cm in length, and each 0.1 cm in diameter). Entirely submitted in J1. K. ?Received in formalin labelled with proper patient identification (initials H, M) and 11. Lt apex lateral is a single tse-white tissue core (1.9 cm in length x 0.1 cm in diameter). Submitted intact in K1. L. ?Received in formalin labelled with proper patient identification (initials H, M) and 12. Lt apex medial are two tse-white tissue cores (1.7 cm and 0.4 cm in length, and each 0.1 cm in diameter). Entirely submitted in L1. MAMADOU Sepulveda (ASCP) 08/07/2017 8:38 AM End of Report [facility] 08/06/2017 16:4 7 EDT 08/06/2017 16:47 EDT Mazin Mcqueen MD PATHOLOGY ORDERAB LES [facility] [address] [place] [address] documented in this encounter Visit Diagnoses Not on filedocumented in this encounter Care Teams Belt Loop Maker Relationship Specialty Start Date End Date Clara Roe MD [address] [place] [phone] PCP - General 09/01/15 documented as of this encounter
--- OUTSIDE RECORDS SUMMARY | 2023-10-11 01:51 | XMS_ITS | Encounter Summary ---
Author Organization [facility]ly [facility] [place] [address] Care Team Providers Care Slip Laster Name Role Phone Marin Patton MD Primary Care Provider [phone] Encounter Details Date Type Department Care Team (Late st Contact Info) Description 12/20/2012 Telephone Gastroenterology at [facility] [place] [address] Catalina Iverson APRN [facility] [place] [address] Social History Tobacco Use Types Packs/Day Years [...] encounter Miscellaneous Notes * Telephone Encounter - Catalina Iverson APRN - 12/20/2012 2:25 PM EDT Attempted to contact Mr Hussein to review results of tests (egd, adair ph study) but no answer and left voice message with call back number. documented in this encounter Plan of Treatment Upcoming Encounters Date Type Department Care Team (Late st Contact Info) Description 01/08/2024 1:45 PM EDT TH Visit (TeleHealth) Radiation Oncology at [address] [phone] Zahira Jaffe PA [facility] DR [place] [address] documented as of this encounter Visit Diagnoses Not on filedocumented in this encounter Care Teams Slip Laster Relationship Specialty Start Date End Date Marin Patton MD PCP - General 02/15/10 01/25/17 documented as of this encounter
--- OUTSIDE RECORDS SUMMARY | 2023-10-11 01:51 | XMS_ITS | Encounter Summary ---
Author Organization [facility] [place] [address] Care Team Providers Care Freight Adjuster Name Role Phone Marin Patton MD Primary Care Provider [phone] Encounter Details Date Type Department Care Team (Latest Contact Info) Description 12/04/2012 11:12 AM EDT - 12/04/2012 2:15 PM EDT Hospital En[place] [address] Jessy Nobles MD [facility] [place] [address] Hematemesis; Melena; Esophageal ulcer Discharge Disposition: Home Social History Tobacco Use [...] 36.5 ??C (97.7 ??F) 12/04/2012 11:47 AM E DT Respiratory Rate 12 12/04/2012 1:15 PM EDT Oxygen Saturation 94% 12/04/2012 1:15 PM EDT Inhaled Oxygen Concentration - - Weight - - Height - - Body Mass Index - - documented in this encounter Discharge Instructions * Discharge Instructions* Nathaniel Borja RN - 12/04/2012 1:19 PM EDT [...] next colonoscopy. The results of your test and your risk for colorectal cancer will help your doctor decide how often you need to be checked. [facility] [phone] 8a-5p Same Day Endo [phone] 7a-8p Otherwise contact [phone] and ask to speak to the diagnostic radiologist recreational counselor Follow up care is a johnson part [...] ordinarily won't upset your stomach. Be gentle withwhat you choose to start with. ?? Drink plenty of fluids ( unless otherwise told not to) Medications ?? You may have a mild sore throat. Ice chips, popsicles, over- the-counter throat lozenges or spaymay help numb your throat. This procedure should [...] Other Instructions Be sure to carry your small animal caretaker within 3 feet at all times . Follow the instructions that were givento you along with your diary. IV SITE [...] not get better as expected. Sunday[facility]Sunday Clinic [phone] 8a-5p Same Day Endo [phone] 7a-8p Otherwise contact [phone] and ask to speak to the diagnostic radiologist recreational counselor Jing Noland RN [phone] if any problems with small animal caretaker Follow-up care is a johnson part of your treatment and safety. Be sure to make and go to all appointments, and call your doctor if you are having problems. Instructions have been reviewed and patient expresses understanding * Patient Instructions* Jessy Nobles MD - 12/04/2012 1:06 PM EDT Please see Recommendations in the Provation procedure report which is documented in the procedural note in E-DH. documented in this encounter Medications at Time of Discharge Medication Sig Dispensed Refills Start Date End Date esomeprazole (NEXIUM) 40 mg capsule Take 40 mg by mouth 2 times daily. 11/29/2016 documented as of this encounter H&P Notes * Jessy Nobles MD - 12/04/2012 12:27 PM EDT Patient seen and examined; no interval change since out-patient gi consult; rrr; clear lungs; consent signed for colo and egd and sommer; risks explained. documented in this encounter Miscellaneous Notes * Miscellaneous - Provider, Scanning - 12/04/2012 2:46 PM EDT documented in this encounter Plan of Treatment Upcoming Encounters Date Type Department Care Team (Late st Contact Info) Description 01/08/2024 1:45 PM EDT TH Visit (TeleHealth) Radiation Oncology at [address] [phone] Zahira Jaffe PA [facility] DR [place] [address] documented as of this encounter Procedures Procedure Name Priority Date/Time Associated Diagnosis Comments SURGICAL PATHOLOGY REPORT Routine 12/04/2012 1:11 PM EDT SPECIMEN TO PATHOLOGY Routine 12/04/2012 1:11 PM EDT SPECIMEN TO PATHOLOGY Routine 12/04/2012 1:11 PM EDT UPPER GASTROINTESTINAL ENDOSCOPY,WITH BIOPSY SINGLE OR MULTIPLE Routine 12/04/2012 12:54 PM EDT Hematemesis Melena Esophageal ulcer UPPER GASTROINTESTINAL ENDOSCOPY,WITH BIOPSY SINGLE OR MULTIPLE (WRVU 2.39) 12/04/2012 12:22 PM EDT Hematemesis Melena Esophageal ulcer COLONOSCOPY, DIAGNOSTIC (WRVU 3.26) 12/04/2012 12:22 PM EDT Hematemesis Melena Esophageal ulcer COLONOSCOPY Routine 12/04/2012 12:05 PM EDT UPPER GI ENDOSCOPY Routine 12/04/2012 12 :05 PM EDT documented in this encounter Results * Surgical Pathology Report (12/04/2012 1:11 PM EDT) Surgical Pathology Report ? [facility] ? Provider: ?? JESSY NOBLES ? Pt. Name: ?? NASEEMFRANSISCO Dickinson ? Acc #: ?[id number] ?Pt. ? Col Date: ?? 12/04/2012 ? /Sex: ?1955,(57 years),Male ? Rec Date: ?? 12/04/2012 ? LOC: ?4T ? SURGICAL PATHOLOGY ? ---Pathologic Diagnosis--- ? Endoscopic biopsies - ? A - Stomach: ? Gastric antral and fundic gland mucosa with mild nonspecific reactive ? gastropathy. ? No H. pylori-like microorganism is seen. ? B - Esophagus: ? Squamocolumnar junctional mucosa (cardia type) with multilayered ? epithelium and no evidence of intestinal metaplasia (SEE NOTE). ? NOTE: Multilayered epithelium is a marker of reflux injury and a possible ? precursor of Latif's esophagus. ? CR-0 ? 12/05/12 ? XL ? 12/05/12 Verified by: ? Duke Farooq MD ? Pathologist ? (Electronic Signature) ? The attending pathologist whose signature appears on this report has ? reviewed all diagnostic slides and has edited the gross and/or ? microscopic portion of the report in rendering the final pathologic ? diagnosis. ? ---Microscopic Description--- ? Immunohistochemistry Studies: ? Formalin-fixed, paraffin-embedded tissue sections are studied using the B- ? SA system technique with appropriate positive and negative controls. ??These ? IHC studies provide the pathologist with adjunctive diagnostic information. ? Antibody specificity has been verified by testing antibodies on a series of ? in-house tissues with known immunohistochemical performance ? characteristics. The clinical interpretation of any antibody positive ? staining or its absence is evaluated within the context of clinical ? presentation, morphology, histopathological criteria and other diagnostic ? tests. ? Block ?Antibody ? Result (Positive/Negative) ? A1 ? H. pylori ?Negative ? ---Gross Description--- ? A - Labeled/Fixative: Stomach, formalin. ? [facility] ? Provider: ?? JESSY NOBLES ? Pt. Name: ?? FRANSISCO BEE ? Acc #: ?[id number] ?Pt. ? Col Date: ?? 12/04/2012 ? /Sex: ?1955,(57 years),Male ? Rec Date: [...] irregular Z line from 39-38; question Latif's CERNER MILLENNIUM 12/04/2012 1:11 PM EDT Jessy Nobles MD PATHOLOGY/CYTOLOGY O SILVINA Performing Organization Address [facility] de Phone Number TAMELA PRINCESOUTHE[facility] SERVICES[facility]AY[facility] * Specimen to Pathology (surgical or derm) (12/04/2012 1:11 PM EDT) AP Specimen 12/04/2012 1:11 PM EDT 12/04/2012 1:11 PM EDT Narrative CERNER MILLENNIUM - 12/04/2012 1:11 PM EDT Specimen requisition ordered. ??Separate Pathology report to follow Jessy Nobles MD PATHOLOGY/CYTOLOGY O [place] Performing Organization Address [facility] de Phone Number TAMELA DAY * Specimen to Pathology (surgical or derm) (12/04/2012 1:11 PM EDT) AP Specimen 12/04/2012 1:11 PM EDT 12/04/2012 1:11 PM EDT Narrative CERNER NIKIENNIUM - 12/04/2012 1:11 PM EDT Specimen requisition ordered. ??Separate Pathology report to follow Jessy Nobles MD PATHOLOGY/CYTOLOGY O [place] Performing Organization Address [facility] de Phone Number [facility] * COLONOSCOPY (12/04/2012 12:05 PM EDT) COLONOSCOPY [facility] Endoscopy ___ Patient Name: Fransisco Bee ? Procedure Date: 12/04/2012 12:05 PM ? Date of : 1955 ? Age: 57 ? Order #: [id number] ? ___ Procedure: ? Colonoscopy Indications: ? Melena Providers: ? Jessy Nobles MD, Keena Borja RN, ? Enid Almaguer, Aircraft Shipping Checker Referring MD: ?Marin Patton MD Requesting Provider: [...] Patton MD GENERAL SURGICAL ORD ERABLES PROVATION * UPPER GI ENDOSCOPY (12/04/2012 12:05 PM EDT) Pathologist [facility] UPPER GI ENDOSCOPY [facility] Endoscopy Patient Name: Fransisco Bee ? Procedure Date: 12/04/2012 12:05 PM ? Date of : 1955 ? Age: 57 ? Order #: [id number] ? Procedure: ? Upper GI endoscopy Indications: ? Heartburn, Melena; follow up for ? bleeding esophageal ulcer; need to ? accurately place wireless pH capsule Providers: ? Jessy Nobles MD, Keena Borja RN, ? Enid Almaguer, Aircraft Shipping Checker Referring : ?Marin Patton MD Requesting Provider: Catalina Iverson APRN Medicines: ? Midazolam 1 mg IV, Fentanyl 75 ? micrograms IV Complications: ? No immediate complications. Procedure: ? The procedure, indications, benefits, ? [...] ? endoscopy was accomplished without ? difficulty. ? Findings: ? The examined [...] in the ? gastric body and antrum characterized ? by erythema. This was biopsied. ? - Normal gastric fundus. ? - Hiatus hernia. ? - Z-line irregular, 38 to 39 cm from ? the incisors. This was biopsied. ? - Normal middle third of esophagus. ? - Normal upper third of esophagus. ? - The SOMMER pH capsule was deployed. Recommendation: ?- Await pathology results. ? - Letter to be sent to patient and ? referring provider in 8-10 days. ? - Return to primary care physician [...] 12/02/2012 12/03/2012 12/04/2012 diphenhydrAMINE (BENADRYL) injection (CANCELED) ONCE PRN, Starting on Sun12/04/12 at 1229, Until Sun12/04/12 at 1811, Itching, Intra-Operative (Intra-Procedure), Routine 1229 (Given - Provid er: Cece Sheikh RN)1232 (Given - Provider: Cece Sheikh RN) fentaNYL 50mcg/mL injection (CANCELED) ONCE PRN, Starting on Sun12/04/12 at 1229, Until Sun12/04/12 at 1811, Pain, Intra-Operative (Intra-Procedure), Routine 1229 (Given - Provid er: Cece Sheikh RN)1232 (Given - Provider: Cece Sheikh RN)1251 (Given - Provider: Cece Sheikh RN)1303 (Given - Provider: Keena Borja, ANA) midazolam (VERSED) injection (CANCELED) ONCE PRN, Starting on Sun12/04/12 at 1229, Until Sun12/04/12 at 1811, Sleep, Intra-Operative (Intra-Procedure), Routine 1229 (Given - Provid er: Cece Sheikh RN)1232 (Given - Provider: Cece Sheikh RN)1251 (Given - Provider: Keena Borja, ANA) documented in this encounter Care Teams Freight Adjuster Relationship Specialty Start Date End Date Marin Patton MD PCP - General 02/15/10 01/25/17 documented as of this encounter
--- OUTSIDE RECORDS SUMMARY | 2023-10-11 01:51 | XMS_ITS | Encounter Summary ---
Author Organization [facility]ly [facility] [place] [address] Care Team Providers Care Financial Services Associate Name Role Phone Radha Gustafson MD Primary Care Provider [phone] Encounter Details Date Type Department Care Team (Late st Contact Info) Description 12/10/2012 5:00 PM EDT Office [place] [address] Real Jones MD [facility] [place] [address] GERD (gastroesophageal reflux disease) (Primary Dx) Discharge [...] Progress Notes * Real Jones MD - 12/16/2012 7:17 PM EDT [id number] WIRELESS pH CAPSULE STUDY AFTER UPPER ENDOSCOPY Amanuel Hussein Male, 57 yrs, 1955 PCP: RADHA GUSTAFSON RETREAD MOLD OPERATOR: NONE STUDY DATES: 12/04/12 to 9/13/13 INTERPRETATION DATE: 12/13/12 PROVIDER: Real Jones, PhD, ([id number]) INDICATION Persistent reflux symptoms despite medical therapy. NOTE: This study was performed on 40 mg of Nexium twice daily. METHODS After upper endoscopy where landmarks were visualized and measured, in a supervised setting, and after informed consent, a Sommer pH telemetry capsule was deployed orally and attached to the esophageal wall at 5 cm above the upper border of the LES. No complications were noted during this procedure. FINDINGS Visual inspection of the study shows fluctuations in pH values throughout the study consistent with a technically adequate study. The patient did not record upright or supine positions on day two. DAY ONE Total Number of Reflux Episodes: 20 Upright Position: 20 Supine Position: 0 Reflux Episodes Longer than Five Minutes: 0 Upright: 0 Supine: 0 Duration of Longest Episode: 2 minute(s), upright position Total Distal Esophageal Acid Exposure Time: 12 minute(s). Percent of Total Recording Time: 0.8% Percent of Upright Recording Time: 1.2% Percent of Supine Recording Time: 0% DAY TWO Total Numberof Reflux Episodes: 18 Reflux Episodes Longer than Five Minutes: 0 Duration of Longest Episode: 1 mi nute(s). Total Distal Esophageal Acid Exposure Time: 4 minute(s). Percent of Total Recording Time: 0.3% Ncgqn-Wkhft-Fklv (Total) Fraction of Time with pH Less Than 4%: 0.6% Calculated DeMeester Score(normal values are up to 14.72) Day One Calculated DeMeester Score: 3.2 Day Two Calculated DeMeester Score: 2.1 Uknys-Ttakj-Qsem DeMeester Score (Total): 2.7 During this recording period, the patientdid not report any symptoms on his health promotion educator. IMPRESSION During this recording period, while the [...] exposure time Total = less than 5.3% Upright = less than 6.3% Supine = less than 1.2%. ADDENDUM SAP expresses the likelihood that a specific symptom, i.e., heartburn, regurgitation, chest pain, is associated with acid reflux. By convention, SAP values greater than 95% are positive. Real Jones MD, PhD client advisor, [employer] Section of Gastroenter[place] [address] V: [phone] F: [phone] BEL/bishnu EC/CC: PCP Catalina Iverson APRN documented in this encounter Plan of Treatment Upcoming Encounters Date Type Department Care Team (Late st Contact Info) Description 01/08/2024 1:45 PM EDT TH Visit (TeleHealth) Radiation Oncology at [address] [phone] Zahira Jaffe PA [facility] [address] [place] [address] documented as of this encounter Visit Diagnoses Diagnosis GERD (gastroesophageal reflux disease)- Primary Esophageal reflux documented in this encounter Care Teams Financial Services Associate Relationship Specialty Start Date End Date Radha Gustafson MD PCP - General 02/15/10 01/25/17 documented as of this encounter
--- OUTSIDE RECORDS SUMMARY | 2023-10-11 01:51 | XMS_ITS | Encounter Summary ---
Author Organization [facility] Address [address] [place] [address] Care Team Providers Care Cmo Name Role Phone Clara Wood MD Primary Care Provider [phone] Encounter Details Date Type Department Care Team (Late st Contact Info) Description 07/12/2023 Lab Requisition [facility] Pathology & Laboratory Medicine - [address] [address] Outr Resulting Lab, Provider Social History Tobacco [...] PCR Routine 07/12/2023 7:15 EDT HEPATITIS A ANTIBODY IGM Today 07/12/2023 7:15 EDT HEPATITIS A TOTAL ANTIBODY W REFLEX Routine 07/12/2023 7:15 EDT HEPATITIS B CORE ANTIBODY (TOTAL) Routine 07/12/2023 7:15 EDT HEPATITIS B SURFACE ANTIBODY Routine 07/12/2023 7:15 EDT HEPATITIS B SURFACE ANTIGEN Routine 07/12/2023 7:15 EDT documented in this encounter Results * HEPATITIS A ANTIBODY IGM (07/12/2023 7:15 EDT) [facility] Hepatitis A Antibody, IgM Negative Negative 07/12/2023 21:14 EDT [facility] Blood VENOUS BLOOD / Unknown 07/12/2023 7:15 EDT 07/12/2023 17:27 EDT Narrative [facility] - 07/12/2023 21:14 EDT The results of this assay can be falsely lowered due to the consumption of Biotin. Provider Outr Resulting Lab CHEMISTRY & BLOOD GAS ORDERABLES Performing Organization Address [facility] Co de Phone Number [facility] [address] [place] [phone] * HEPATITIS B SURFACE ANTIBODY (07/12/2023 7:15 EDT) [facility] Hep B Surface Ab, Quantitative <3.1 See Note mIU/mL 07/12/2023 19:11 EDT [facility] Comment: Reference Range for Hep B Surface Ab, Quant: Positive: >= 10.0 mIU/mL Negative: ??< 10.0 mIU/mL Patient is presumed to not be immune to infection with Hepatitis B Virus. Hep B Surface Ab, Qualitative Negative See Note 07/12/2023 19:11 EDT [facility] Comment: Reference Range for Hep B Surface Ab, Qual: Unvaccinated: ??Negative Vaccinated: ??Positive Blood VENOUS BLOOD / Unknown 07/12/2023 7:15 EDT 07/12/2023 17:27 EDT Provider Outr Resulting Lab CHEMISTRY & BLOOD GAS ORDERABLES Performing Organization Address [facility] Co de Phone Number [facility] [address] [place], [place] [phone] * HEPATITIS B CORE ANTIBODY (TOTAL) (07/12/2023 7:15 EDT) Hepatitis B Core Ab, Total Negative Negative 07/12/2023 19:57 EDT [facility] Blood VENOUS BLOOD / Unknown 07/12/2023 7:15 EDT 07/12/2023 17:27 EDT Provider Outr Resulting Lab CHEMISTRY & BLOOD GAS ORDERABLES Performing Organization Address [facility]/ZIP Co de Phone Number [facility] [address] [place] [address] * HEPATITIS B SURFACE ANTIGEN (07/12/2023 7:15 EDT) Pathologist [facility] Hep B Surface Ag Negative Negative 07/12/2023 19:18 EDT [facility] Blood VENOUS BLOOD / Unknown 07/12/2023 7:15 EDT 07/12/2023 17:27 EDT Provider Outr Resulting Lab CHEMISTRY & BLOOD GAS ORDERABLES Performing Organization Address [facility]/ZIP Co de Phone Number [facility] [address] [place] [address] * HEPATITIS C AB W REFLEX TO HCV RNA BY PCR (07/12/2023 7:15 EDT) Pathologist [facility] Hep C Antibody Negative Negative 07/12/2023 19:53 EDT [facility] Blood VENOUS BLOOD / Unknown 07/12/2023 7:15 EDT 07/12/2023 17:27 EDT Provider Outr Resulting Lab CHEMISTRY & BLOOD GAS ORDERABLES Performing Organization Address [facility] Co de Phone Number [facility] [address] [place] [address] * (ABNORMAL) HEPATITIS A TOTAL ANTIBODY W REFLEX (07/12/2023 7:15 EDT) Pathologist [facility] Hepatitis A Antibody, Total Positive(A ) Negative 07/12/2023 20:12 EDT [facility] Blood VENOUS BLOOD / Unknown 07/12/2023 7:15 EDT 07/12/2023 17:27 EDT Narrative [facility] - 07/12/2023 20:12 EDT The result of this assay can be falsely elevated (Positive) due to the consumption of Biotin. Provider Outr Resulting Lab CHEMISTRY & BLOOD GAS ORDERABLES [facility] [address] [place] [address] documented in this encounter Visit Diagnoses Not on filedocumented in this encounter Care Teams Cmo Relationship Specialty Start Date End Date Clara Wood MD [address] [place] [phone] PCP - General 09/01/15 documented as of this encounter
--- OUTSIDE RECORDS SUMMARY | 2023-10-11 01:51 | XMS_ITS | Encounter Summary ---
Author Organization [facility] [place] [address] Care Team Providers Care Mail Officer Name Role Phone Marin Patton MD Primary Care Provider [phone] Encounter Details Date Type Department Care Team (Late st Contact Info) Description 09/04/2012 4:34 PM EDT - 09/04/2012 11:59 PM EDT [place] [address] Ori Rowan MD [address] [address] Discharge Disposition: Home Social History Tobacco Use Types Packs/Day Years Used Date Smoking Tobacco: Never Assessed Sex and Gender Information Value Date Recorded Sex Assigned at Not on file Gender Identity Not on file Sexual Orientation Not on file documented as of this encounter Medications at Time of Discharge Medication Sig Dispensed Refills Start Date End Date lansoprazole (PREVACID) 30 mg capsule 10/16/2012 documented as of this encounter Plan of Treatment Upcoming Encounters Date Type Department Care Team (Late st Contact Info) Description 01/08/2024 1:45 PM EDT TH Visit (TeleHealth) Radiation Oncology at [address] [phone] Zahira Jaffe PA [facility] [address] [place] [address] documented as of this encounter Procedures Procedure Name Priority Date/Time Associated Diagnosis Comments SURGICAL PATHOLOGY REPORT Routine 09/04/2012 4:54 PM EDT documented in this encounter Results * Surgical Pathology Report (09/04/2012 4:54 PM EDT) Surgical Pathology Report ? [facility] ? Provider: ?? REAL JONES ? Pt. Name: ?? AMANUEL HUSSEIN ? Acc #: ?[id number] ?Pt. ? Col Date: ?? 09/04/2012 ? /Sex: ?1955,(57 years),Male ? Rec Date: ?? 09/04/2012 ? LOC: ?OPW ? SURGICAL PATHOLOGY ? ---Pathologic Diagnosis--- ? CONSULTATION CASE ? Endoscopic biopsies ([id number], collection date 08/21/12): ? 1. 2nd portion duodenum - Duodenal mucosa within normal limits, including ? preserved villous architecture. ? 2. Lower esophagus 40cm - Squamous esophageal and cardiac mucosa with ? mild chronic nonspecific inflammation. No goblet cell metaplasia is seen. ? CR-0 ? 09/05/12 ? AAS ? 09/05/12 Verified by: ? Luan Singleton MD ? Pathologist ? (Electronic Signature) ? The attending pathologist whose signature appears on this report has ? reviewed all diagnostic slides and has edited the gross and/or ? microscopic portion of the report in rendering the final pathologic ? diagnosis. ? ---Microscopic Description--- ? Slides reviewed, microscopic description not recorded. ? ---Gross Description--- ? [facility] ([facility]) pathology slide(s) are reviewed. ??Refer ? to Diagnosis and Specimen Submitted for specific case information. ? For the full text of the [facility] report(s) please refer to Non-DH ? Documentation Pathology in the electronic health record (eDH). ? ---Clinical Information--- ? Specimen Submitted: ? CONSULTATION CASE ? A - 3 slides labeled [id number], collection date 08/21/12. ? [id number] ? Report to: ? [facility] ? Surgical Pathology Department ? [facility] ? Provider: ?? REAL JONES ? Pt. Name: ?? AMANUEL HUSSEIN ? Acc #: ?[id number] ?Pt. ? Col Date: ?? 09/04/2012 ? /Sex: ?1955,(57 years),Male ? Rec Date: ?? 09/04/2012 ? LOC: ?OPW ? SURGICAL PATHOLOGY ? [facility], 2nd Floor ? [address] ? [place], [place] ??[address] ? [facility] 09/04/2012 4:54 PM EDT Real Jones MD PATHOLOGY/CYTOLOGY O RDERABLES [facility] documented in this encounter Visit Diagnoses Not on filedocumented in this encounter Care Teams Mail Officer Relationship Specialty Start Date End Date Marin Patton MD PCP - General 02/15/10 01/25/17 documented as of this encounter
--- OUTSIDE RECORDS SUMMARY | 2023-10-11 01:51 | XMS_ITS | Encounter Summary ---
Author Organization [facility] Address [address] [place] [address] Care Team Providers Care Paint Trimmer Pipe Bowls Name Role Phone Lisa Tse DIGITAL MARKETING ASSISTANT Primary Care Provider [phone] Encounter Details Date Type Department Care Team (Latest Contact Info) Description 08/25/2015 12:52 EDT - 08/25/2015 23:59 EDT Hospital Encounter [address] [address] Unknown, Provider, Discharge Disposition: Home or Self Care Social History Tobacco Use Types Packs/Day Years Used Date Smoking Tobacco: Never Assessed Sex and Gender Information Value Date Recorded Sex Assigned at Not on file Gender Identity Not on file Sexual Orientation Not on file documented as of this encounter Discharge Disposition Disposition Code Departure Means Destination Home or Self Assisted documented in this encounter Plan of Treatment Not on file documented as of this encounter Visit Diagnoses Not on filedocumented in this encounter Care Teams Paint Trimmer Pipe Bowls Relationship Specialty Start Date End Date Lisa Tse NP [address] [place] [address] [address] [place] [phone] PCP - General 12/10/09 08/31/15 documented as of this encounter
--- OUTSIDE RECORDS SUMMARY | 2023-10-11 01:51 | XMS_ITS | Referral Summary ---
Author Organization [facility] Address [address] [place] [address] Care Team Providers Care Slubber Hand Name Role Phone Clara Wood MD Primary Care Provider [phone] Encounters Date Type Department Care Team Description 07/12/2023 Lab Requisition [facility] Pathology & Laboratory Medicine - [address] [address] Outr Resulting Lab, Provider from Last 3 Months Social History Tobacco Use Types Packs/Day Years Used Date Smoking Tobacco: Never Assessed Interpersonal Safety Answer Date Record ed Physically Hurt Never 10/26/2019 Verbally Threaten Not on file 10/26/2019 Sex and Gender Information Value Date Recorded Sex Assigned at Not on file Gender Identity Not on file Sexual Orientation Not on file Plan of Treatment Not on file Procedures Procedure Name Priority Date/Time Associated Diagnosis [...] C Antibody Negative Negative 07/12/2023 19:53 EDT [facility] Blood VENOUS BLOOD / Unknown 07/12/2023 7:15 EDT 07/12/2023 17:27 EDT Provider Outr Resulting Lab CHEMISTRY & BLOOD GAS ORDERABLES Performing Organization Address City/[facility]/ZIP Co de Phone Number [facility] [address] [place] [address] * HEPATITIS A ANTIBODY IGM (07/12/2023 7:15 EDT) Pathologist [facility] Hepatitis A Antibody, IgM Negative Negative 07/12/2023 21:14 EDT [facility] Blood VENOUS BLOOD / Unknown 07/12/2023 7:15 EDT 07/12/2023 17:27 EDT Narrative [facility] - 07/12/2023 21:14 EDT The results of this assay can be falsely lowered due to the consumption of Biotin. Provider Outr Resulting Lab CHEMISTRY & BLOOD GAS ORDERABLES Performing Organization Address [facility] Co de Phone Number [facility] [address] [place] [phone] * (ABNORMAL) HEPATITIS A TOTAL ANTIBODY W REFLEX (07/12/2023 7:15 EDT) Pathologist [facility] Hepatitis A Antibody, Total Positive(A ) Negative 07/12/2023 20:12 EDT [facility] Blood VENOUS BLOOD / Unknown 07/12/2023 7:15 EDT 07/12/2023 17:27 EDT Narrative [facility] - 07/12/2023 20:12 EDT The result of this assay can be falsely elevated (Positive) due to the consumption of Biotin. Provider Outr Resulting Lab CHEMISTRY & BLOOD GAS ORDERABLES Performing Organization Address City/[facility]/ZIP Co de Phone Number [facility] [address] [place], [place] [id number] * HEPATITIS B CORE ANTIBODY (TOTAL) (07/12/2023 7:15 EDT) Pathologist [facility] Hepatitis B Core Ab, Total Negative Negative 07/12/2023 19:57 EDT [facility] Blood VENOUS BLOOD / Unknown 07/12/2023 7:15 EDT 07/12/2023 17:27 EDT Provider Outr Resulting Lab CHEMISTRY & BLOOD GAS ORDERABLES Performing Organization Address [facility] de Phone Number [facility] [address] [place], [place] [phone] * HEPATITIS B SURFACE ANTIBODY (07/12/2023 7:15 EDT) Pathologist [facility] Hep B Surface Ab, Quantitative <3.1 See Note mIU/mL 07/12/2023 19:11 EDT [facility] Comment: Reference Range for Hep B Surface Ab, Quant: Positive: >= 10.0 mIU/mL Negative: ??< 10.0 mIU/mL Patient is presumed to not be immune to infection with Hepatitis B Virus. Hep B Surface Ab, Qualitative Negative See Note 07/12/2023 19:11 EDT [facility] Comment: Reference Range for Hep B Surface Ab, Qual: Unvaccinated: ??Negative Vaccinated: ??Positive Blood VENOUS BLOOD / Unknown 07/12/2023 7:15 EDT 07/12/2023 17:27 EDT Provider Outr Resulting Lab CHEMISTRY & BLOOD GAS ORDERABLES Performing Organization Address [facility] Co de Phone Number [facility] [address] [place], [place] [phone] * HEPATITIS B SURFACE ANTIGEN (07/12/2023 7:15 EDT) Pathologist [facility] Hep B Surface Ag Negative Negative 07/12/2023 19:18 EDT [facility] Blood VENOUS BLOOD / Unknown 07/12/2023 7:15 EDT 07/12/2023 17:27 EDT Provider Outr Resulting Lab CHEMISTRY & BLOOD GAS ORDERABLES [facility] [address] [place] [address] from Last 3 Months Care Teams Slubber Hand Relationship Specialty Start Date End Date Clara Wood MD [address] [place] [phone] PCP - General 09/01/15
--- OUTSIDE RECORDS SUMMARY | 2023-10-11 01:51 | XMS_ITS | Encounter Summary ---
Author Organization [facility] Address [address] [place] [address] Care Team Providers Care Machine Setup Operator Name Role Phone Clara Roe MD Primary Care Provider [phone] Encounter Details Date Type Department Care Team (Late st Contact Info) Description 12/29/2016 Results Only [facility]- [facility] [phone] Nicolas Arreola, [address] [place] [address] Social History Tobacco Use Types Packs/Day Years Used Date Smoking Tobacco: Never Assessed Sex and Gender Information Value Date Recorded Sex Assigned at Not on file Gender Identity Not on file Sexual Orientation Not on file documented as of this encounter Plan of Treatment Not on file documented as of this encounter Procedures Procedure Name Priority Date/Time Associated Diagnosis Comments SURGICAL PATHOLOGY Routine 12/29/2016 17 :22 EDT documented in this encounter Results * SURGICAL PATHOLOGY (12/29/2016 17:22 EDT) Pathology Report: SURGICAL PATHOLOGY REPORT Reports generated via electronic interface contain original data; however they are lacking the format of the original report. Caution should be taken when reading/interpret ing unformatted reports. Name: ? ROHIT AMANUEL Duncan ? Accession #: ? [id number] ? : ? 1955 (Age: 61) ??M ? Collect Date: ? 12/29/2016 ? Location: ? [facility] ? Receive Date: ? 01/01/2017 ? Provider: NICOLAS ARREOLA DO Copy to: CLARA ROE MD ? Final Pathologic Diagnosis: SKIN OF EYELID, RIGHT LOWER, SHAVE BIOPSY: - Verruca vulgaris. ?? Document reviewed and electronically signed by: GLYNN BOCANEGRA MD Report ??Date: 01/03/2017 07:55 By the signature above, the attending physician certifies that he/she has personally conducted a gross and/or microscopic examination of the described specimens and rendered or confirmed the above diagnosis. Specimen(s) Received: Rt lower eyelid Clinical History: Enlarging skin cyst; clinical diagnosis code: D49.2 Gross Description: ? Received in formalin labelled with proper patient identification (initials H, M) and right lower eyelid is a rubbery irregular skin lesion (0.6 x 0.5 x 0.4 cm). The surface of the lesion is granular and tse. The margin is inked. Bisected and entirely submitted in 1. MAMADOU Elmore (ASCP) 01/02/2017 9:01 AM End of Report [facility] 12/29/2016 17:2 2 EDT 01/01/2017 17:22 EDT Nicolas Arreola DO PATHOLOGY ORDER CORWIN [facility] [address] [place] [address] documented in this encounter Visit Diagnoses Not on filedocumented in this encounter Care Teams Machine Setup Operator Relationship Specialty Start Date End Date Clara Roe MD [address] [place] [phone] PCP - General 09/01/15 documented as of this encounter
--- OUTSIDE RECORDS SUMMARY | 2023-10-11 01:51 | XMS_ITS | Encounter Summary ---
Author Organization [facility] Address [address] [place] [address] Care Team Providers Care Associate Director Qa Name Role Phone Lisa Caruso NP Primary Care Provider [phone] Encounter Details Date Type Department Care Team (Late st Contact Info) Description 06/28/2006 Results Only [facility] [address] [place] [address] Sunil Dee, DO [address] [place] [address] Social History Tobacco Use Types Packs/Day Years Used Date Smoking Tobacco: Never Assessed Sex and Gender Information Value Date Recorded Sex Assigned at Not on file Gender Identity Not on file Sexual Orientation Not on file documented as of this encounter Plan of Treatment Not on file documented as of this encounter Procedures Procedure Name Priority Date/Time Associated Diagnosis Comments SURGICAL PATHOLOGY Routine 06/28/2006 0:00 EDT documented in this encounter Results * SURGICAL PATHOLOGY (06/28/2006 0:00 EDT) Pathology Report: SURGICAL PATHOLOGY REPORT Reports generated via electronic interface contain original data; however they are lacking the format of the original report. Caution should be taken when reading/interpreti ng unformatted reports. Name: ? AMANUEL BEE ? Accession #: ? [id number] ? : ? 1955 (Age: 51) ??M ? Collect Date: ? 06/28/2006 ? Location: ? [facility] ? Receive Date: ? 06/30/2006 ? Provider: SUNIL DEE DO Copy to: LISA CARUSO LOG PEELER ? Final Pathologic Diagnosis: ? Gastric antrum, biopsy: 1. ??Gastric mucosa with mild, chronic inflammation. 2. ??No Helicobacter pylori-like organism identified on H&E stained slides. Document reviewed and electronically signed by: KWESI GUTIERREZ MD Report ??Date: 07/03/2006 15:53 By the signature above, the attending physician certifies that he/she has personally conducted a gross and/or microscopic examination of the described specimens and rendered or confirmed the above diagnosis. Specimen(s) Received: ? Antrum Clinical History: ? GI bleed Gross Description: ? Received in Hollande' s fixative labelled [place] Pipo and antrum are two irregular soft tissues, each measuring 0.2 x 0.2 x 0.2 cm. ??The specimen is submitted intact in one cassette. ??(Dr. Luz-MS)/[facility] End of Report NED CASTELLANO 06/28/2006 06/30/2006 8:3 7 EDT Sunil Dee DO PATHOLOGY ORDERABLES [facility] [address] [place] [address] documented in this encounter Visit Diagnoses Not on filedocumented in this encounter Care Teams Associate Director Qa Relationship Specialty Start Date End Date Lisa Caruso NP [address] [place] [phone] PCP - General 12/10/09 08/31/15 documented as of this encounter
--- OUTSIDE RECORDS SUMMARY | 2023-10-11 01:51 | XMS_ITS | Encounter Summary ---
Author Organization [facility] Address [address] [place] [address] Care Team Providers Care Duct Maker Name Role Phone Clara Wood MD Primary Care Provider [phone] Encounter Details Date Type Department Care Team (Late st Contact Info) Description 08/19/2019 Lab Requisition [facility] Pathology & Laboratory Medicine - [address] [address] Outr Resulting Lab, Provider Social History Tobacco [...] Name Priority Date/Time Associated Diagnosis Comments PSA TOTAL, DIAGNOSTIC Routine 08/19/2019 8:45 EDT documented in this encounter Results * PSA TOTAL, DIAGNOSTIC (08/19/2019 8:45 EDT) PSA <0.1 0.0 - 4.5 ng/mL 08/20/2019 9:[address] [facility] Blood VENOUS BLOOD / Unknown 08/19/2019 8:45 EDT 08/19/2019 21:[address] [facility] - 08/20/2019 9:47 EDT NOTE: Serum PSA concentration should not be interpreted as absolute evidence for the presence or absence of malignant disease. Assayed on Siemens Efficient DrivetrainsIA Bufysaur XPT using chemiluminescent technology.??Values obtained by using different assay methods cannot be used interchangeably. Provider Outr Resulting Lab CHEMISTRY & BLOOD GAS ORDERABLES [facility] [address] [place] [address] documented in this encounter Visit Diagnoses Not on filedocumented in this encounter Care Teams Duct Maker Relationship Specialty Start Date End Date Clara Wood MD [address] [place] [phone] PCP - General 09/01/15 documented as of this encounter
--- OUTSIDE RECORDS SUMMARY | 2023-10-11 01:51 | XMS_ITS | Encounter Summary ---
Author Organization [facility] [place] [address] Care Team Providers Care Senior Care Manager Name Role Phone Marin Patton MD Primary Care Provider [phone] Encounter Details Date Type Department Care Team (Late Contact Info) Description 09/05/2012 External [place] [phone] Provider, Scanning Social History Tobacco Use Types [...] TH Visit (TeleHealth) Radiation Oncology at [address] [phone] Zahira Jaffe PA [facility] DR HEMATOLOGY [place] [address] documented as of this encounter Procedures Procedure Name Priority Date/Time Associated Diagnosis Comments SURGICAL PATHOLOGY SCAN Routine 09/05/2012 documented in this encounter Results * Scan Doc: Surgical Pathology (09/05/2012) Real Jones MD MEDIA MGR SCAN EXT O RDR/RSLT documented in this encounter Visit Diagnoses Not on filedocumented in this encounter Care Teams Senior Care Manager Relationship Specialty Start Date End Date Marin Patton MD PCP - General 02/15/10 01/25/17 documented as of this encounter
--- OUTSIDE RECORDS SUMMARY | 2023-10-11 01:51 | XMS_ITS | Encounter Summary ---
Author Organization [facility] Address [address] [place] [address] Care Team Providers Care Show Dog Trainer Name Role Phone Clara Wood MD Primary Care Provider [phone] Encounter Details Date Type Department Care Team (Latest Contact Info) Description 08/06/2017 17:42 EDT - 08/06/2017 23:59 EDT Hospital Encounter [address] [address] Unknown, Provider, Discharge Disposition: Home or Self Care Social History Tobacco Use Types Packs/Day Years Used Date Smoking Tobacco: Never Assessed Sex and Gender Information Value Date Recorded Sex Assigned at Not on file Gender Identity Not on file Sexual Orientation Not on file documented as of this encounter Discharge Disposition Disposition Code Departure Means Destination Home or Self Mcfp documented in this encounter Plan of Treatment Not on file documented as of this encounter Visit Diagnoses Not on filedocumented in this encounter Care Teams Show Dog Trainer Relationship Specialty Start Date End Date Clara Wood MD [address] [place] [phone] PCP - General 09/01/15 documented as of this encounter
--- OUTSIDE RECORDS SUMMARY | 2023-10-11 01:51 | XMS_ITS | Encounter Summary ---
Author Organization [facility] [place] [address] Care Team Providers Care Vp Informatics Name Role Phone Marin Patton MD Primary Care Provider [phone] Reason for Referral * Consultation (Routine) - Closed Specialty Diagnoses / Procedures Referred By Lobo dean Referred To Contact Gastroenterology Diagnoses Esophageal ulcer Melena Hematemesis H/o esophageal ulcer, hematemesis, melena despite PPI therapy. Procedures IMP ON meds; EGD, colo motility Catalina Iverson [place] [address] [facility] Endoscopy [address] [place] [address] Referral ID Status Reason Start Date Expiration Date V isits Requested Visits Authorized [id number] Closed Test Only 10/16/2012 04/14/2013 1 1 Reason for Visit * Reason Comments GI Problem Encounter Details Date Type Department Care Team (Late st Contact Info) Description 10/16/2012 10:00 AM EDT Office [place] [address] Catalina Iverson [place] [address] Esophageal ulcer (Primary Dx); Melena; Hematemesis Discharge Disposition: Home Social History Tobacco Use [...] this encounter Patient Instructions * Patient Instructions* Catalina Iverson APRN - 10/16/2012 10:25 AM EDT 1. Upper endoscopy and colonoscopy 2. Impedance on medications on Nexium 40 mg twice a day 3. GERD diet and lifestyle modifications 4. Continue to avoid use of NSAID's 5. Lab work today and will call if results are abnormal 6. Will contact you with results of testing 7. Follow up as needed Catalina Iverson APRN [phone] documented in this encounter Progress Notes * Catalina Iverson APRN - 10/16/2012 9:52 AM [...] dysphagia or odynophagia. He was hospitalized for further evaluation and required blood transfusions. He was told that cause of bleeding was due to esophageal per upper endoscopy. He admits to using NSAID's frequently for generalized aches and pains. He was placed on Prevacid 30 mg daily that [...] pain or cramping. He was admitted at [facility]. On 2012, EGD performed that revealed raw superficial ulceration at 40 cm measuring approximately 5-6 mm. It was hemostatic and no fibrin caps or visible vessel per report. The remainder of the esophagus was normal. 3 cm hiatal hernia (39-42 cm). Z-line irregular. Normal stomach. Normal duodenal bulb but whitish coating was noted on the duodenal tissue that was biopsied. Biopsies: esophagus lowerat 40 cm~squamocolumnar mucosa with mild chronic inflammation but no ulcer. Duodenum 2nd portion~neg ative. *Lab work 08/19/2012: CBC~4.09, 13.6/39.5, 247; CMP [...] are equal, round, and reactive to light. Righteye exhibits no discharge. Left eye exhibits no [...] normal. No stridor. No respiratory distress. He has no wheezes. He has no rales. He exhibits [...] repeat EGD to evaluate previously noted superficial ulceration,colonoscopy to r/o other etiologies and Impedance on Nexium 40 mg BID. If unrevealing then considervideo capsule, consider fasting gastrin level after stopping [...] Iverson APRN Section of Gastroenterology [place] [address] documented in this encounter Plan of Treatment Upcoming Encounters Date Type Department Care Team (Late st Contact Info) Description 01/08/2024 1:45 PM EDT TH Visit (TeleHealth) Radiation Oncology at [address] [phone] Zahira Jaffe PA [facility] DR HEMATOLOGY [place] [address] Scheduled Referrals Name Type Priority Associated Diagnoses Order Schedule Referral to Gastroenterology Outpatient Referral Routine Esophageal ulcer Melena Hematemesis Ordered: 10/16/2012 documented as of this encounter Procedures Procedure Name Priority Date/Time Associated Diagnosis Comments DIFFERENTIAL, AUTOMATED Routine 10/16/2012 11:09 AM EDT CBC (WITH DIFF) Routine 10/16/2012 11:09 AM EDT Esophageal ulcer Melena Hematemesis TSH Routine 10/16/2012 11:09 AM EDT Esophageal ulcer Melena Hematemesis BASIC METABOLIC PANEL (NON-FASTING) Routine 10/16/2012 11:09 AM EDT Esophageal ulcer Melena Hematemesis COLONOSCOPY Routine 10/16/2012 10:25 AM EDT Esophageal ulcer Melena Hematemesis documented in this encounter Results * Differential, Automated (10/16/2012 11:09 AM EDT) Neutrophils % 52.1 34.0 - 71.0 % CERNER MILLENNIUM Neutr Abs (ANC) 2.62 1.50 - 6.30 x10(3)/mcL CERNER MILLENNIUM Lymphocytes % 34.8 19.0 - 53.0 % CERNER MILLENNIUM Lymphocytes Abs 1.8 1.0 - 3.6 x10(3)/mcL CERNER MILLENNIUM Monocytes % 9.3 4.0 - 13.0 % CERNER MILLENNIUM Monocyte Abs 0.5 0.2 - 1.0 x10(3)/mcL CERNER MILLENNIUM Eosinophils % 2.6 0.0 - 7.0 % CERNER MILLENNIUM Eosinophils Abs 0.1 0.0 - 0.5 x10(3)/mcL CERNER MILLENNIUM Basophils % 1.0 0.0 - 2.0 % CERNER MILLENNIUM Basophils Abs 0.0 0.0 - 0.2 x10(3)/mcL CERNER MILLENNIUM Immature Gran % 0.20 0.00 - 0.66 % CERNER MILLENNIUM Comment: Immature granulocytes(IG's)percentage and absolute count will include metamyelocytes, myelocytes, and promyelocytes. Blood smears from CBCs yielding IG's will be scanned manually for concordance. If this scan disagrees with the automated IG or if promyelocytes are noted, a manual differential will be performed. Malika Gran Abs 0.01 0.00 - 0.05 x10(3)/mcL CERNER MILLENNIUM Blood specimen (specimen) 10/16/2012 11:09 AM EDT 10/16/2012 11:15 AM EDT Real Jones MD HEMATOLOGY ORDERABLE S CERNER MILLENNIUM * TSH (10/16/2012 11:09 AM EDT) TSH 3.00 0.27 - 4.20 mcIU/mL CERNER MILLENNIUM Blood specimen (specimen) 10/16/2012 11:09 AM EDT 10/16/2012 11:15 AM EDT Narrative Resulting Agency Comment Spec In Lab Real Jones MD CHEMISTRY ORDERABLES TAMELA DAY * Basic Metabolic Panel (non-fasting) (10/16/2012 11:09 AM EDT) Glucose Lvl 97 60 - 199 mg/dL CERNER MILLENNIUM Comment:Diabetes: >=200 mg/d L plus symptoms BUN 13 10 - 20 mg/dL CERNER MILLENNIUM Creatinine 0.88 0.80 - 1.50 mg/dL CERNER MILLENNIUM Comment: Please note that the pediatric reference intervals supplied above were not validated at [facility]. Results from pediatric patients should be interpreted in conjunction to the patient's age, height and muscle mass. Sodium 141 135 - 145 mmol/L CERNER MILLENNIUM Potassium 4.1 3.5 - 5.0 mmol/L CERNER MILLENNIUM Comment: Please note: ??Patients with WBC >100,000 may have falsely elevated Potassium levels. ??For accurate Potassium quantification in these patients send serum separator tube (gold top) for subsequent determinations. ??Contact the Clinical Chemistry Laboratory if there are any questions. Chloride 106 98 - 107 mmol/L CERNER MILLENNIUM CO2 27 22 - 31 mmol/L CERNER MILLENNIUM Anion Gap 8 5 - 15 mmol/L CERNER MILLENNIUM Calcium 9.0 8.5 - 10.5 mg/dL CERNER MILLENNIUM Estimated GFR >60 >=60 CERNER MILLENNIUM Comment: This estimated GFR (eGFR) value was [...] the following links into your internet browser. http://www.nkdep.nih.gov/lab-evaluation.shtml http://www.kidney.org/professionals/ Blood specimen (specimen) 10/16/2012 11:09 AM EDT 10/16/2012 11:15 AM EDT Narrative Resulting Agency Comment Spec In Lab Real Jones MD CHEMISTRY ORDERABLES Performing Organization Address City/[facility] Co de Phone Number CERNER MILLENNIUM * (ABNORMAL) CBC (with Diff) (10/16/2012 11:09 AM EDT) WBC 5.0 4.0 - 10.0 x10(3)/mcL CERNER MILLENNIUM RBC 4.61(L) 4.63 - 6.08 x10(6)/mcL CERNER MILLENNIUM Hemoglobin 14.7 13.7 - 17.5 gm/dL CERNER MILLENNIUM Hematocrit 43.3 40.0 - 51.0 % CERNER MILLENNIUM MCV 93.9(H) 79.0 - 92.0 fL CERNER MILLENNIUM MCH 31.9 25.6 - 32.2 pg CERNER MILLENNIUM MCHC 33.9 32.0 - 36.5 gm/dL CERNER MILLENNIUM Platelets 230 145 - 370 x10(3)/mcL CERNER MILLENNIUM RDWSD 41.1 35.0 - 46.0 fL CERNER MILLENNIUM RDWCV 12.1 10.9 - 14.4 % CERNER MILLENNIUM MPV 8.8(L) 9.0 - 12.0 fL CERNER MILLENNIUM Blood specimen (specimen) 10/16/2012 11:09 AM EDT 10/16/2012 11:15 AM EDT Narrative Resulting Agency Comment Spec In Lab Real Jones MD HEMATOLOGY ORDERABLE S Performing Organization Address City/[facility] Co de Phone Number TAMELA DAY documented in this encounter Visit Diagnoses Diagnosis Esophageal ulcer- Primary Ulcer of esophagus without bleeding Melena Blood in stool Hematemesis documented in this encounter Care Teams Vp Informatics Relationship Specialty Start Date End Date Marin Patton MD PCP - General 02/15/10 01/25/17 documented as of this encounter
--- OUTSIDE RECORDS SUMMARY | 2023-10-11 01:51 | XMS_ITS | Encounter Summary ---
Author Organization [facility] [place] [address] Care Team Providers Care Parimutuel Ticket Checker Name Role Phone Marin Patton MD Primary Care Provider [phone] Encounter Details Date Type Department Care Team (Late st Contact Info) Description 12/27/2012 Telephone Gastroenterology at [facility] [place] [address] Catalina Iverson APRN [facility] [place] [address] Social History Tobacco Use Types Packs/Day Years [...] a message with call back number. Will mailletter with results of Sommer ph study. documented in this encounter Plan of Treatment Upcoming Encounters Date Type Department Care Team (Late st Contact Info) Description 01/08/2024 1:45 PM EDT TH Visit (TeleHealth) Radiation Oncology at [address] [phone] Zahira Jaffe PA [facility] [address] HEMATOLOGY [place] [address] documented as of this encounter Visit Diagnoses Not on filedocumented in this encounter Care Teams Parimutuel Ticket Checker Relationship Specialty Start Date End Date Marin Patton MD PCP - General 02/15/10 01/25/17 documented as of this encounter
--- OUTSIDE RECORDS SUMMARY | 2023-10-11 01:51 | XMS_ITS | Encounter Summary ---
Author Organization [facility] Address [address] [place] [address] Care Team Providers Care Home Appliance Technician Name Role Phone Clara Wood MD Primary Care Provider Encounter Details Date Type Department Care Team (Latest Contact Info) Description 12/29/2016 12:44 EDT - 12/29/2016 23:59 EDT Hospital Encounter [address] [address] Unknown, Provider, Discharge Disposition: Home or Self Care Social History Tobacco Use Types Packs/Day Years Used Date Smoking Tobacco: Never Assessed Sex and Gender Information Value Date Recorded Sex Assigned at Not on file Gender Identity Not on file Sexual Orientation Not on file documented as of this encounter Discharge Disposition Disposition Code Departure Means Destination Home or Self Detention documented in this encounter Plan of Treatment Not on file documented as of this encounter Visit Diagnoses Not on filedocumented in this encounter Care Teams Home Appliance Technician Relationship Specialty Start Date End Date Clara Wood MD [address] [place] [phone] PCP - General 09/01/15 documented as of this encounter
--- OUTSIDE RECORDS SUMMARY | 2023-10-11 01:51 | XMS_ITS | Encounter Summary ---
Author Organization [facility] [place] [address] Care Team Providers Care Oxygraph Operator Name Role Phone Marin Patton MD Primary Care Provider [phone] Encounter Details Date Type Department Care Team (Late st Contact Info) Description 12/04/2012 12:30 PM EDT - 12/04/2012 1:30 PM EDT Surgery [place] [address] Jessy Nobles MD [facility] [place] [address] COLONOSCOPY, DIAGNOSTIC (WRVU 3.26) Social History Tobacco Use Types Packs/Day Years [...] you need to be checked. Sunday[facility]Sunday Clinic [phone] 8a-5p Same Day Endo [phone] 7a-8p Otherwise contact [phone] and ask to speak to the electric meter repairer extermination inspector Follow up care is a johnson part [...] Other Instructions Be sure to carry your quality control within 3 feet at all times . [...] WHEN SHOULD YOU CALL FOR HELP? Call [phone] anytime you think that you need emergency [...] not get better as expected. Sunday[facility]Sunday Clinic [phone] 8a-5p Same Day Endo [phone] 7a-8p Otherwise contact [phone] and ask to speak to the electric meter repairer extermination inspector Jing Noland RN [phone] if any problems with quality control Follow-up care is a johnson part of [...] EDT TH Visit (TeleHealth) Radiation Oncology at [address] [phone] Zahira Jaffe PA [facility] HEMATOLOGY [place] [address] documented as of this encounter Procedures Procedure [...] 1:11 PM EDT) Surgical Pathology Report ? [facility] ? Provider: ?? JESSY NOBLES ? Pt. Name: ?? HOSINGLOFRANSISCO Dickinson ? Acc #: ?[id number] ?Pt. ? Col Date: ?? 12/04/2012 ? [...] ? A - Labeled/Fixative: Stomach, formalin. ? [facility] ? Provider: ?? JESSY NOBLES ? Pt. Name: ?? FRANSISCO BEE ? Acc #: ?[id number] ?Pt. ? Col Date: ?? 12/04/2012 ? [...] MD PATHOLOGY/CYTOLOGY O SILVINA Performing Organization Address [facility] de Phone Number [facility] * Specimen to Pathology (surgical or derm) (12/04/2012 1:11 PM EDT) AP Specimen 12/04/2012 1:11 PM EDT 12/04/2012 1:11 PM EDT Narrative CERNER MILLENNIUM - 12/04/2012 1:11 PM EDT Specimen requisition ordered. ??Separate Pathology report to follow Jessy Nobles MD PATHOLOGY/CYTOLOGY O SILVINA Performing Organization Address [facility] de Phone Number [facility] * Specimen to Pathology (surgical or derm) (12/04/2012 1:11 PM EDT) AP Specimen 12/04/2012 1:11 PM EDT 12/04/2012 1:11 PM EDT Narrative [facility] - 12/04/2012 1:11 PM EDT Specimen requisition ordered. ??Separate Pathology report to follow Jessy Nobles MD PATHOLOGY/CYTOLOGY O SILVINA Performing Organization Address [facility] de Phone Number [facility] * COLONOSCOPY (12/04/2012 12:05 PM EDT) COLONOSCOPY [facility] Endoscopy ___ Patient Name: Fransisco Bee ? Procedure Date: 12/04/2012 12:05 PM ? Date of : 1955 ? Age: 57 ? Order #: [id number] ? ___ Procedure: ? Colonoscopy Indications: ? Melena Providers: ? Jessy Nobles MD, Keena Borja RN, ? Enid Almaguer, Mental Health Specialist Referring : ?Marin Patton MD Requesting Provider: [...] GI ENDOSCOPY (12/04/2012 12:05 PM EDT) Pathologist [facility] UPPER GI ENDOSCOPY [facility] Endoscopy Patient Name: Fransisco Bee ? Procedure Date: 12/04/2012 12:05 PM ? Date of : 1955 ? Age: 57 ? Order #: [id number] ? Procedure: ? Upper GI endoscopy Indications: ? Heartburn, Melena; follow up for ? bleeding esophageal ulcer; need to ? accurately place wireless pH capsule Providers: ? Jessy Nobles MD, Keena Borja RN, ? Enid Almaguer, Mental Health Specialist Referring : ?Marin Patton MD Requesting Provider: [...] Action Date Dose Rate Site diphenhydrAMINE (BENADRYL) injection ONCE PRN, Starting on Sun12/04/12 at 1229, Until Sun12/04/12 at 1811, Itching, Intra-Operative (Intra-Procedure), Routine Given 12/04/2012 12:32 PM EDT 25 mg Given 12/04/2012 12:29 PM EDT 25 mg fentaNYL 50mcg/mL injection ONCE PRN, Starting on Sun12/04/12 at 1229, Until Sun12/04/12 at 1811, Pain, Intra-Operative (Intra-Procedure), Routine Given 12/04/2012 1:03 PM EDT 2 5 mcg Given 12/04/2012 12:51 PM EDT 50 mcg Given 12/04/2012 12:32 PM EDT 50 mcg midazolam (VERSED) injection ONCE PRN, Starting on Sun12/04/12 at 1229, Until Sun12/04/12 at 1811, Sleep, Intra-Operative (Intra-Procedure), Routine Given 12/04/2012 12:51 PM EDT 1 mg Given 12/04/2012 12:32 PM EDT 1 mg [...] Cece Sheikh RN)1303 (Given - Provider: Keena Borja RN) midazolam (VERSED) injection (CANCELED) ONCE PRN, Starting on Sun12/04/12 at 1229, Until Sun12/04/12 at 1811, Sleep, Intra-Operative (Intra-Procedure), Routine 1229 (Given - Provid er: Cece Sheikh, ANA)1232 (Given - Provider: Cece Sheikh, RN)1251 (Given - Provider: Keena Borja RN) documented in this encounter Care Teams Oxygraph Operator Relationship Specialty Start Date End Date Marin Patton MD PCP - General 02/15/10 01/25/17 documented as of this encounter
--- OUTSIDE RECORDS SUMMARY | 2023-10-11 01:51 | XMS_ITS | Encounter Summary ---
Author Organization [facility] Address [facility] [place] [address] Care Team Providers Care Conference Manager Name Role Phone Marin Patton MD Primary Care Provider [phone] Reason for Referral * Surgical (Routine) - Closed Specialty Diagnoses / Procedures Referred By Lobo dean Referred To Contact Gastroenterology Diagnoses GERD (gastroesophageal reflux disease) Procedures adair during egd for gerd symptoms (ordered in Ms. Iverson's absence). motility Real Jones MD [facility] DR GASTROENTEROLOGY [place] [address] [facility] Endoscopy [address] [place] [address] Referral ID Status Reason Start Date Expiration Date V isits Requested Visits Authorized [id number] Closed Consult, Test & Treat 11/08/2012 05/07/2013 1 1 Encounter Details Date Type Department Care Team (Late st Contact Info) Description 11/08/2012 Orders [place] [address] Real Jones MD [facility] GASTROENTEROLOGY [place] [address] GERD (gastroesophageal reflux disease) (Primary Dx) Social History Tobacco Use Types [...] EDT TH Visit (TeleHealth) Radiation Oncology at [address] [phone] Zahira Jaffe PA [facility] DR HEMATOLOGY AND [place]COLOG[place] [address] Scheduled Referrals Name Type Priority Associated Diagnoses Order Schedule Referral to Gastroenterology Outpatient Referral Routine GERD (gastroesophageal reflux disease) Ordered: 11/08/2012 documented as of this encounter Visit Diagnoses Diagnosis GERD (gastroesophageal reflux disease)- Primary Esophageal reflux documented in this encounter Care Teams Conference Manager Relationship Specialty Start Date End Date Marin Patton MD PCP - General 02/15/10 01/25/17 documented as of this encounter
--- OUTSIDE RECORDS SUMMARY | 2023-10-11 01:51 | XMS_ITS | Encounter Summary ---
Author Organization [facility] [place] [address] Care Team Providers Care Keg Header Name Role Phone Marin Patton MD Primary Care Provider [phone] Encounter Details Date Type Department Care Team (Late st Contact Info) Description 11/28/2016 Telephone [place] [address] Keith Daugherty MD [facility] [place] [address] Social History Tobacco Use Types Packs/Day Years [...] encounter Miscellaneous Notes * Telephone Encounter - Keith Daugherty - 11/28/2016 11:45 AM EDT Called by [facility] regarding Mr Hussein. He has a history of recurrent esophageal ucler backin 2012 and presents today to the ED [...] TH Visit (TeleHealth) Radiation Oncology at [address] [phone] Zahira Jaffe PA [facility] [place] [address] documented as of this encounter Visit Diagnoses Not on filedocumented in this encounter Care Teams Keg Header Relationship Specialty Start Date End Date Marin Patton MD PCP - General 02/15/10 01/25/17 documented as of this encounter
--- OUTSIDE RECORDS SUMMARY | 2023-10-11 01:51 | XMS_ITS | Encounter Summary ---
Author Organization [facility] Address [address] [place] [address] Care Team Providers Care Medical Billing Manager Name Role Phone Lisa Tse POLICE JUSTICE Primary Care Provider [phone] Encounter Details Date Type Department Care Team (Late st Contact Info) Description 08/25/2015 Results Only [facility] [phone] Nicolas Arreola, [address] [place] [address] Social History Tobacco Use Types Packs/Day Years Used Date Smoking Tobacco: Never Assessed Sex and Gender Information Value Date Recorded Sex Assigned at Not on file Gender Identity Not on file Sexual Orientation Not on file documented as of this encounter Plan of Treatment Not on file documented as of this encounter Procedures Procedure Name Priority Date/Time Associated Diagnosis Comments SURGICAL PATHOLOGY Routine 08/25/2015 10 :34 EDT documented in this encounter Results * SURGICAL PATHOLOGY (08/25/2015 10:34 EDT) Pathology Report: SURGICAL PATHOLOGY REPORT Reports generated via electronic interface contain original data; however they are lacking the format of the original report. Caution should be taken when reading/interpret ing unformatted reports. Name: ? AMANUEL HUSSEIN ? Accession #: ? [id number] ? : ? 1955 (Age: 60) ??M ? Collect Date: ? 08/25/2015 ? Location: ? [facility] ? Receive Date: ? 08/26/2015 ? Provider: NICOLAS ARREOLA DO Copy to: CHRISTIANA ROE MD ? Final Pathologic Diagnosis: SKIN OF OCCIPUT, LEFT, SHAVE BIOPSY: - Seborrheic keratosis, irritated. ?? Microscopic Description: Sections consist of a shave biopsy of a papule. ??There is compact orthohyperkeratos is and focal parakeratosis. ??The papule is formed by epidermal acanthosis with low papillomatosis. ??The keratinocytes have reactive changes. Within the dermis, there are thick bundles of collagen and sparse chronic inflammation. ??In some areas, melanin pigment is accentuated at the tips of rete ridges. ??(Dr. Smith)/n Document reviewed and electronically signed by: ARIADNA SMITH MD Report ??Date: 08/27/2015 16:25 By the signature above, the attending physician certifies that he/she has personally conducted a gross and/or microscopic examination of the described specimens and rendered or confirmed the above diagnosis. Specimen(s) Received: Left occiput Clinical History: Non-healing skin lesion; clinical diagnosis code: ??D49.2 Gross Description: ? Received in formalin labelled with proper patient identification (initials H, M) and left occiput is a shave biopsy of brown hairbearing skin (0.9 x 0.7 x 0.1 cm). ??The specimen is trisected and entirely submitted in Maria Elena Kirkpatrick 08/26/2015 1:28 PM End of Report [facility] 08/25/2015 10:3 4 EDT 08/26/2015 10:34 EDT Nicolas Arreola DO PATHOLOGY ORDER [facility] [address] [place] [address] documented in this encounter Visit Diagnoses Not on filedocumented in this encounter Care Teams Medical Billing Manager Relationship Specialty Start Date End Date Lisa Tse NP [address] [facility] [address] [place] [address] PCP - General 12/10/09 08/31/15 documented as of this encounter
--- NOTE | 2023-10-11 07:42 | DI.RAD_ITS ---
Exam(s) XR CHEST 2V PA LATERAL EXAM: XR CHEST 2V PA LATERAL CLINICAL HISTORY: IRRADATION cystitis W HEMATURIA, N30.41 Z01.818 PREPROCEDURAL EXAM. TECHNIQUE: 2D digital imaging was performed. COMPARISON: Prior chest x-ray July 2012 FINDINGS: 2 views: Heart size is normal. The mediastinum is not widened. Lungs are clear. No infiltrates nor pleural effusions. IMPRESSION: No acute pulmonary findings. DATA REPOSITORY: RADIATION DOSE DELIVERED:
== END ==
PROVIDERS: PCP Family Medicine; Visit Provider Physician Assistant Medical
DX: N30.41 Irradiation cystitis with hematuria (principal); Z01.818 Encounter for other preprocedural examination
CPT/HCPCS: 71046

== ENCOUNTER 2023-10-11 08:05 | Outpatient (CLI) | payer OTHER, SELFPAY ==
[2023-10-11 07:34] LABS: Abs Immature Grans 0.02 10^3/uL (0.0-0.06); Absolute Basophil Count 0.01 10^3/uL (0.0-0.2); Absolute Eosinophil Count 0.18 10^3/uL (0.0-0.7); Absolute Lymphocyte Count 0.88 10^3/uL (1.2-3.4); Absolute Neutrophil Count 2.87 10^3/uL (1.2-6.7); Basophils % 0.2 %; HCT 41.6 % (40.0-50.0); HGB 14.7 g/dL (13.5-17.5); Immature Grans % 0.4 %; Lymphocytes % 19.7 %; MCH 33.9 pg (27.0-33.0); MCHC 35.3 % (32.0-36.0); MCV 96 fL (80-95); MPV 8.4 fL (8.0-11.0); Monocytes % 11.2 %; Neutrophils % 64.5 %; Platelet Count 177 10^3/uL (130-400); RBC 4.33 10^6/uL (4.36-5.78); RDW 11.6 % (11.8-14.1); RDW-SD 41.1 fL; WBC 4.46 10^3/uL (4.4-10.8)
[2023-10-11 07:54] LABS: Iron 82 ug/dL (65-175); Total Iron Binding Capacity 235 ug/dL (250-450); Transferrin Sat 35 % (20-55)
[2023-10-12 13:14] LABS: Transferrin 184 mg/dL (201-352)
== END 2023-10-11 08:06 | disposition home or self-care (01) ==
LOC: LBO 08:06
PROVIDERS: PCP Family Medicine; Visit Provider Family Medicine
DX: R77.8 Other specified abnormalities of plasma proteins (principal); N30.41 Irradiation cystitis with hematuria; Z01.818 Encounter for other preprocedural examination
CPT/HCPCS: 36415; 83540; 83550; 84466; 85025

== ENCOUNTER 2024-01-02 02:51 | Outpatient (CLI) | payer OTHER, SELFPAY ==
[2024-01-04 11:43] LABS: PSA, Ultrasensitive <0.01 ng/mL (<= 4.5)
[2024-01-05 13:21] LABS: Testosterone, Total 435 ng/dL (240-950)
== END 2024-01-02 02:52 | disposition home or self-care (01) ==
PROVIDERS: PCP Family Medicine; Visit Provider Physician Assistant
DX: C61 Malignant neoplasm of prostate (principal); Z85.46 Personal history of malignant neoplasm of prostate; Z79.818 Long term (current) use of other agents affecting estrogen receptors and estrogen levels
CPT/HCPCS: 36415; 84153; 84403

== ENCOUNTER 2024-07-02 02:00 | Outpatient (CLI) | payer OTHER, SELFPAY ==
[2024-07-02 07:37] LABS: Bilirubin Negative (Negative); Blood Small (Negative); Clarity Sl Cloudy (Clear); Glucose Negative (Negative); Ketones Negative (Negative); Leukocyte Esterase Negative (Negative); Nitrite Negative (Negative); Specific Gravity 1.025 (1.005-1.025); Urobilinogen 0.2 mg/dL (Up to 0.2); pH 5.5 (5-8)
[2024-07-02 07:44] LABS: Bacteria Negative HPF (Negative); C & S Indicated? No; Casts Negative LPF (Negative); Crystals Negative HPF (Negative); Epithelial Cells Rare HPF (Negative); Mucus Moderate (Negative); WBC Negative HPF (0-5)
[2024-07-05 14:21] LABS: PSA, Ultrasensitive <0.01 ng/mL (<= 6.5)
[2024-07-06 15:18] LABS: Testosterone, Total 412 ng/dL (240-950)
== END 2024-07-02 02:01 | disposition home or self-care (01) ==
PROVIDERS: PCP Family Medicine; Referring Provider Physician Assistant; Visit Provider Physician Assistant
DX: R31.9 Hematuria, unspecified (principal); C61 Malignant neoplasm of prostate
CPT/HCPCS: 36415; 84153; 84403; 81003; 81015

== ENCOUNTER 2024-08-06 13:40 | Outpatient (REF) | payer OTHER, SELFPAY ==
[2024-08-06 15:57] LABS: Hemoglobin A1C 5.7 % (<5.7)
[2024-08-06 16:02] LABS: ALT 41 U/L (16-63); AST 33 U/L (15-37); Alkaline Phosphatase 62 U/L (46-116); Anion Gap 7.1 mmol/L (3-11); BUN 13 mg/dL (7-18); Bilirubin, Total 1.2 mg/dL (0.2-1.0); CO2 27.9 mmol/L (21.0-32.0); CREATININE 1.1 mg/dL (0.70-1.30); Calcium 8.9 mg/dL (8.5-10.1); Chloride 105 mmol/L (98-107); Estimated GFR 72.22 (mL/min/1.73m2); Ferritin 408 ng/mL (26-388); Glucose 114 mg/dL (74-106); Potassium 4.4 mmol/L (3.5-5.1); Sodium 140 mmol/L (136-145); Total Protein 7.1 g/dL (6.4-8.2)
== END 2024-08-06 13:41 | disposition home or self-care (01) ==
LOC: NCHCN 13:40
PROVIDERS: PCP Family Medicine; Visit Provider Family Medicine
DX: R73.03 Prediabetes; I10 Essential (primary) hypertension; R79.89 Other specified abnormal findings of blood chemistry
CPT/HCPCS: 80053; 82728; 83036

== ENCOUNTER 2025-01-27 01:23 | Outpatient (CLI) | payer MEDICARE, SELFPAY | END 2025-01-27 01:24 | disposition home or self-care (01) | PROVIDERS: PCP Family Medicine; Visit Provider Physician Assistant | DX: C61 Malignant neoplasm of prostate (principal) | CPT/HCPCS: 36415; 84153 ==